=== PATIENT | female | born 1965 | race Caucasian/White ===

== ENCOUNTER 2021-06-27 13:11 | Emergency (ER) | payer OTHER, SELFPAY ==
--- NOTE | ~2021-06-27 | XR_ITS ---
EXAMINATION: XR CHEST CLINICAL INFORMATION: Cough x2 weeks COMPARISON: None TECHNIQUE: 2 views of the chest were obtained. FINDINGS: No focal consolidation. No pneumothorax. Trachea is midline. Cardiomediastinal silhouette is not enlarged. No large pleural effusions. Degenerative changes of the thoracolumbar spine. Partially visualized lower cervical spinal hardware. Soft tissues are unremarkable. XR/XR chest 2V IMPRESSION: No acute cardiopulmonary process.
[2021-06-27 13:17] VITALS: BP 191/83; PULSE 86; RESP 16; TEMP 36.2; O2SAT 96; BMI 23.8
--- NOTE | 2021-06-27 14:43 | ED.URI ---
HPI - URI/Sore Throat General Chief Complaint: Upper Respiratory Symptoms Stated Complaint: cough Time Seen by Provider: 06/27/21 14:05 Source: patient Mode of arrival: ambulatory Limitations: no limitations History of Present Illness HPI Narrative: This is a 56-year-old female that presents to 14 days of productive cough, facial pressure, and malaise. She states that her cough has been productive and constant in nature, in the sputum is perez/green in nature. She states she frequently gets sinus infections. She also states that for the past 14 days she has also been experiencing throat discomfort which she states is most likely from her cough. She also describes a vague discomfort to her left ear that also started 14 days ago. She reports post-tussive emesis after coughing fits . She denies any sick contacts, fevers, chills, shortness of breath, chest pain, nausea, vomiting, diarrhea and abdominal pain. She is not concerned about COVID-19, she states that she has stayed within her home and has not left. She also adds that she smoked for 40 years but has quit and is currently not smoking. MD elicited complaint: cough (Productive), nasal congestion (And facial pressure) and sinus pain Onset (ago): day(s) (Fourteen days) Consistency: constant Severity: moderate Description of mucous: green (/perez) Able to tolerate fluids by mouth: Yes Related Data Previous Rx's Medication 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 Recorded albuterol sulfate 90 mcg/actuation 1 inh INHALATION QID PRN #8.5 g 06/27/21 aerosol inhaler amoxicillin 875 mg-potassium 1 tab PO BID 10 Days #20 tab 06/27/21 clavulanate 125 mg tablet (Augmentin) benzonatate 100 mg capsule 100 mg PO BID PRN #20 cap 06/27/21 (Tessalon Perles) Allergies Allergy/AdvReac Type Severity Reaction Status Date / Time Unable to Assess Allergy Verified 06/27/21 13:19 Review of Systems Review of Systems: Constitutional : No Weight loss, No Fever, No Chills, No Night Sweats, No Fatigue, No Malaise ENT/Mouth : No Hearing loss, + Ear Pain, + Nasal Congestion, + Sinus Pain, No Hoarseness, No sore throat, No Rhinorrhea, No Swallowing Difficulty Eyes: No Eye Pain, No Swelling, No Redness, No Foreign Body, No Discharge, No Vision Changes Cardiovascular : No Chest Pain, No SOB, No Dyspnea on Exertion, No Orthopnea, No Edema, No Palpitations Respiratory : + Cough, + Sputum, No Wheezing, No Smoke Exposure, no Dyspnea Gastrointestinal : No Nausea, No Vomiting, No Diarrhea, No Constipation, No abdominal Pain, No Hematochezia, No Melena Genitourinary : no irregular bleeding, No Dysuria, No Urinary Frequency, No Hematuria, No Urinary Incontinence, No Urgency, No Flank Pain, No Urinary Flow Changes, No Hesitancy Musculoskeletal : No joint pain, No Myalgias, No Joint Swelling Skin : No Skin Lesions, No rash Neuro : No Weakness, No Numbness, No Paresthesias, No Loss of Consciousness, No Dizziness, No Headache Psych : No Anxiety/Panic, No Depression, No SI/HI/AH/VH, No Social Issues, Heme/Lymph: No Bruising, No Bleeding,No Lymphadenopathy Endocrine : No Polyuria, No Polydipsia, No Temperature Intolerance Yes all other systems are reviewed and are negative [facility] Past Medical History Attestation statement: The following information was validated with the patient. Source: old records reviewed Medical History (Updated 06/27/21 @ 15:02 by GARFIELD Coreas) COPD (chronic obstructive pulmonary disease) Diabetes Social History Social History Advance Directives: Yes Advance Directives Information Provided: Yes Advance Directives on File: No Physical Exam Vital Signs: Vital Signs: Last Vital Signs Temp 97.2 F 06/27/21 13:17 Pulse 86 06/27/21 13:17 Resp 16 06/27/21 13:17 BP 191/83 H 06/27/21 13:17 Pulse Ox 96 06/27/21 13:17 Body Mass Index 23.8 vital signs have been reviewed as normal and appeared to be correct. Blood pressure elevated, patient has no history of hypertension and that she knows of. Heart rate normal. Respiration rate normal. Temperature normal. Oxygen saturation normal. Appearance: Alert. Oriented X3. No acute distress. Patient is periodically coughing during the interview. Head: Normal external exam. Normocephalic. + discomfort to palpation on maxillary sinus, + pressure with downward bending test Eyes: PERRLA. EOMI. Conjunctiva and sclera normal. Eyelids normal. ENT: Pharynx normal. Uvula midline. Moist mucous membranes. Bilateral tympanic membranes with a strong cone of light, all landmarks visible, free of erythema and effusions. Neck: Normal inspection. Neck supple. FROM. + submandibular adenopathy. No meningeal signs. CVS: Normal heart rate and rhythm. Heart sound normal. No murmurs noted. Pulses normal throughout. Respiratory: No respiratory distress. Painless inspiration. Breath sounds normal. No wheezes/rales/rhonchi noted. Chest nontender. No accessory muscle usage noted or decreased air movement noted. Abdomen: Soft and nontender. Nondistended. No guarding. No rigidity. Bowel sounds normal in all 4 quadrants. No distention noted. No organomegaly noted. No visible injury noted. No rebound tenderness. Back: No CVA tenderness. Full range of motion noted. Skin: Skin warm and dry. Normal skin color. Normal skin turgor. No rashes/lesions/lacerations noted. Extremities: Extremities exhibit normal range of motion. Extremities nontender. Neuro: Oriented X 3. No motor deficit. No sensory deficit. Reflexes normal. Normal steady gait. Course Course Course Narrative: This is a 55-year-old female that presents to the emergency department from home with 14 days of productive cough. She states that her sputum is green/perez and has been consistently this color since day 1. She states she has also been experiencing post-tussive emesis at times, when she has coughing fits. She also vaguely reports throat discomfort, as well as left ear pain which started around the same time. She denies fevers, chills, shortness of breath, chest pain, recent sick contacts. My reviewing vitals it was noted that the patient is hypertensive at 191/83. Per patient history she is not aware of a diagnosis of hypertension, and states she does not take anything for her blood pressure. She is asymptomatic at this time, however she has been advised to follow-up with her primary care provider within the next week to look into her high blood pressure. She is aware of the blood pressure, and will follow up with her PCP Physical exam is significant for pressure to the maxillary sinuses, and facial pressure when bending forward. Consistent with sinusitis. No abnormal findings upon otoscopic optic exam. No adventitious lung sounds noted. A chest x-ray has been ordered at this time as well as a strep test. Her chest x-ray shows no acute cardiopulmonary processes. The plan at this time is to discharge the patient home with antibiotics to treat a sinus infection. She has been educated on the diagnosis, and plan. She has no further questions. She has also been instructed to follow-up with her PCP, and return to the emergency department any new or worsening symptoms. MDM - URI/Sore Throat Imaging Data Chest x-ray: Attestation: I personally reviewed and interpreted this imaging study as follows: Radiologist's impression: FINDINGS: No focal consolidation. No pneumothorax. Trachea is midline. Cardiomediastinal silhouette is not enlarged. No large pleural effusions. Degenerative changes of the thoracolumbar spine. Partially visualized lower cervical spinal hardware. Soft tissues are unremarkable. XR/XR chest 2V IMPRESSION: No acute cardiopulmonary process. Discharge Plan Discharge Clinical Impression: Sinusitis, Upper respiratory infection Patient Disposition: Home, Self-Care 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: Sinusitis (ED) Additional 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: Take all medications as prescribed Follow-up with your primary care provider Drink plenty of fluids Return to the emergency department if new or worsening symptoms, or if you developed shortness of breath, chest pain, fevers or chills. Today you were found to have an elevated blood pressure, although you do not have a history of hypertension or high blood pressure it is important for you to follow-up with your primary care provider to look into this diagnosis. Prescriptions: New amoxicillin-pot clavulanate [Augmentin] 875-125 mg tablet 1 tab PO BID 10 Days Qty: 20 RF: 0 benzonatate [Tessalon Perles] 100 mg capsule 100 mg PO BID PRN (Reason: cough) Qty: 20 RF: 0 albuterol sulfate 90 mcg/actuation HFA aerosol inhaler 1 inh inhalation QID PRN (Reason: shortness of breath or wheezing) Qty: 8.5 RF: 0 Referrals: Edith Wong MD [Primary Care Provider] - 2 days
[2021-06-27 15:03] LABS: Influenza A PCR NEGATIVE (Negative); Influenza B PCR NEGATIVE (Negative); Resp Syncy Virus RNA Qual PCR NEGATIVE (Negative); SARS COV2 PCR INHOUSE NEGATIVE (Negative)
[2021-06-27 15:14] VITALS: BP 157/66; PULSE 78; RESP 18; TEMP 36.8; O2SAT 98
== END 2021-06-27 16:10 | disposition home or self-care (01) ==
PROVIDERS: Physician Assistant Medical; Emergency Provider Emergency Medicine; PCP Internal Medicine
DX: J06.9 Acute upper respiratory infection, unspecified (principal); J44.9 Chronic obstructive pulmonary disease, unspecified; J20.9 Acute bronchitis, unspecified; R05 Cough; R06.02 Shortness of breath; Z20.822 Contact with and (suspected) exposure to COVID-19; Z79.899 Other long term (current) drug therapy
CPT/HCPCS: 0241U; 36415; 71046; 99283; 99284

== ENCOUNTER 2022-04-21 08:36 | Outpatient (REF) | payer OTHER, SELFPAY ==
[2022-04-21 11:16] LABS: MANUAL DIFF FLAG NO
[2022-04-21 11:38] LABS: Basophils Absolute Auto 0.1 X10*3/uL (0.0-0.2); Basophils Percent Auto 0.8 % (0-2); Eosinophils Absolute Auto 0.3 X10*3/uL (0.0-0.4); Eosinophils Percent Auto 3.5 % (0-4); Hematocrit 36.8 % (37.0-47.0); Hemoglobin 11.7 g/dl (12.0-16.0); Imm Gran Abs Auto 0.03 X10*3/uL (0.00-0.03); Imm Gran Pct Auto 0.4 % (0.0-0.4); Lymphocytes Absolute Auto 3.9 X10*3/uL (1.2-4.9); Lymphocytes Percent Auto 46.4 % (20-40); Mean Corpuscular HGB Conc 31.8 g/dl (31.0-35.0); Mean Corpuscular Hemoglobin 28.3 pg (27.0-33.0); Mean Corpuscular Volume 88.9 fL (80.0-98.0); Mean Platelet Volume 11.8 fL (9.4-12.3); Monocytes Absolute Auto 0.5 X10*3/uL (0.1-1.2); Monocytes Percent Auto 6.1 % (2-11); Neutrophils Absolute Auto 3.6 x10*3/uL (2.0-8.3); Neutrophils Percent Auto 42.8 % (45-73); Platelet Count 299 X10*3/uL (160-400); Red Blood Count 4.14 X10*6/uL (4.20-5.50); Red Cell Distribution Width 14.1 % (11.0-16.0); White Blood Count 8.4 X10*3/uL (4.8-10.8)
[2022-04-21 12:07] LABS: TSH reflex Free T4 4.84 uIU/mL (0.32-4.0)
[2022-04-21 12:08] LABS: Alanine Aminotransferase 29 U/L (0-31); Albumin Level 3.9 g/dL (3.5-5.0); Alkaline Phosphatase 217 U/L (39-117); Anion Gap 14 (12-20); Aspartate Amino Transferase 32 U/L (5-31); Bilirubin Total 0.3 mg/dL (0.0-1.0); Blood Urea Nitrogen 17 mg/dL (9-16); Calcium 9.3 mg/dL (8.4-10.2); Carbon Dioxide 25 mmol/L (22-29); Chloride 105 mmol/L (96-108); Cholesterol 212 mg/dL; Estimated Glomerular Filt Rate > 60; Glucose Fasting 114 mg/dL (60-99); HDL Cholesterol 56 mg/dL; LDL Cholesterol Calculated 119 mg/dl; Potassium 5.2 mmol/L (3.3-5.1); Sodium 139 mmol/L (135-145); Total Protein 7.5 g/dL (6.5-8.0); Triglycerides 187 mg/dL
[2022-04-21 12:34] LABS: Creatinine Urine 112.95 mg/dL; Microalbum/Creatinine Ratio Ur 223.9 ug/mg cr
[2022-04-21 12:40] LABS: Free T4 (Free Thyroxine) 1.03 ng/dL (0.71-1.85)
[2022-04-26 16:12] LABS: Vitamin D 25-OH, D2 <4 ng/mL; Vitamin D 25-OH, D3 63 ng/mL; Vitamin D 25-OH, Total 63 ng/mL (30-100)
== END 2022-04-21 08:37 | disposition home or self-care (01) ==
LOC: HO.HMGCLDS 08:36
PROVIDERS: Visit Provider Nurse Practitioner Family
DX: E11.9 Type 2 diabetes mellitus without complications (principal); E78.00 Pure hypercholesterolemia, unspecified; M25.50 Pain in unspecified joint; I10 Essential (primary) hypertension; Z76.89 Persons encountering health services in other specified circumstances
CPT/HCPCS: 36415; 80053; 80061; 82043; 82306; 84439; 84443; 85025

== ENCOUNTER → 2022-06-03 10:16 | Outpatient (BNVA) | payer OTHER, SELFPAY | PROVIDERS: PCP Internal Medicine; Visit Provider Orthopaedic Surgery | DX: M65.342 Trigger finger, left ring finger (principal) | CPT/HCPCS: 20550; 99202; J1100 ==

== ENCOUNTER → 2022-08-25 10:42 | Outpatient (BNVA) | payer OTHER, SELFPAY | PROVIDERS: PCP Nurse Practitioner Family; Visit Provider Orthopaedic Surgery | DX: M65.342 Trigger finger, left ring finger (principal) | CPT/HCPCS: 99212 ==

== ENCOUNTER → 2022-09-01 12:24 | Outpatient (BNVA) | payer OTHER, SELFPAY | PROVIDERS: PCP Nurse Practitioner Family; Visit Provider Internal Medicine Endocrinology, Diabetes & Metabolism | DX: E11.9 Type 2 diabetes mellitus without complications (principal); Z79.4 Long term (current) use of insulin | CPT/HCPCS: 82947; 99202 ==

== ENCOUNTER 2022-11-19 09:29 | Day surgery (SDC) | payer OTHER, SELFPAY ==
[2022-11-19 09:54] VITALS: BMI 30.3
[2022-11-19 11:19] VITALS: BP 140/59; PULSE 77; RESP 18; TEMP 36.7
--- NOTE | 2022-11-19 11:33 | MHC.SHP ---
Pre-Procedural Eval Section A Date of Service: 11/19/22 The patient is an INPATIENT: No Changes since office visit: No Cold of Flu in the past 2 weeks, No New Medical Problems, No Changes in Medication and No Patient answered all questions The History & Physical has been completed within 30 days and I have reviewed it.: Yes Section B Chief Complaint: Trigger finger, left ring finger Allergies: Allergies Allergy/AdvReac Type Severity Reaction Status Date / Time No Known Allergies Allergy Verified 09/01/22 12:34 Plan I have reviewed the history and physical and performed a pertinent physical examination on my patient. No changes have occurred unless specified. Time Spent With Patient Time: Total time managing care of this patient today ____ minutes.
--- NOTE | 2022-11-19 11:34 | W.PM.OPN ---
Operative Note Operative Note Date of Service: 11/19/22 Narrative: Operative Note Preop diagnosis: 1. Left ring finger Trigger finger Postop diagnosis: 1. Left ring finger Trigger finger Procedure: 1. Left ring finger A1 jesica release Surgeon: Jenny Banegas MD Anesthesia: local block using 1% lidocaine with epinephrine Findings: No locking or catching after A1 jesica release EBL: Less than 5 mL Tourniquet time: None Specimens: None Complications: None Disposition: Brought to recovery room in stable condition Plan: Follow-up for 10-14 days for wound check and suture removal Indications: The patient is 57 years old, with a left ring finger trigger finger that has been unresponsive to nonoperative management. The risks and benefits of operative treatment including but not limited to risk of damage to blood vessels, nerves, tendons, infection, persistent pain, persistent symptoms, recurrence or possible need for additional surgery were discussed with the patient and the patient wishes to proceed with surgery. Procedure: Once consent was obtained a local block was performed in the preop area using a combination of 1% lidocaine with epinephrine. The patient was then brought back to the operating suite and placed on the operative table in supine position. The left upper extremity was prepped and draped in a standard surgical fashion. Once assured that we had a good block, a 1.5 cm oblique incision was made centered over the A1 jesica of the left ring finger . The incision was made through the skin to the subcutaneous tissues using a #15 blade. Careful dissection was made down to the level of the A1 jesica using tenotomy scissors, with care being taken to protect the nearby neurovascular structures. A longitudinal incision was made in the A1 jesica 1st using a #15 blade, then using tenotomy scissors under direct visualization. The A1 jesica was noted to be thickened. Following our A1 jesica release, we no longer saw any locking or catching of the digit with flexion and extension. Once satisfied with our A1 jesica release the wound was copiously irrigated with normal saline and hemostasis was obtained with a brief period of local pressure. The skin edges were reapproximated with some 5.0 nylon suture material and a sterile dressing was applied. The patient appears to have tolerated the procedure well and with no complications. All digits were well vascularized at the conclusion of the case.
[2022-11-19 11:46] VITALS: BP 142/58; PULSE 76; RESP 18; O2SAT 95
== END 2022-11-19 11:48 | disposition home or self-care (01) ==
PROVIDERS: PCP Nurse Practitioner Family; Visit Provider Orthopaedic Surgery
PROC: (CPT 26055; principal; 2022-11-19 11:50)
DX: M65.342 Trigger finger, left ring finger (principal); E11.9 Type 2 diabetes mellitus without complications; J44.9 Chronic obstructive pulmonary disease, unspecified; F17.210 Nicotine dependence, cigarettes, uncomplicated
CPT/HCPCS: 26055; J0171

== ENCOUNTER 2022-11-24 14:15 | Outpatient (REF) | payer OTHER, SELFPAY ==
[2022-11-24 18:18] LABS: Alanine Aminotransferase 28 U/L (0-31); Albumin Level 4.1 g/dL (3.5-5.0); Alkaline Phosphatase 233 U/L (39-117); Anion Gap 17 (12-20); Aspartate Amino Transferase 24 U/L (5-31); Bilirubin Total 0.3 mg/dL (0.0-1.0); Blood Urea Nitrogen 18 mg/dL (9-16); Calcium 9.3 mg/dL (8.4-10.2); Carbon Dioxide 26 mmol/L (22-29); Chloride 101 mmol/L (96-108); Cholesterol 137 mg/dL; Estimated Glomerular Filt Rate 42; Glucose Random 177 mg/dL (60-115); HDL Cholesterol 52 mg/dL; LDL Cholesterol Calculated 44 mg/dl; Potassium 4.5 mmol/L (3.3-5.1); Sodium 139 mmol/L (135-145); Total Protein 7.2 g/dL (6.5-8.0); Triglycerides 208 mg/dL
== END 2022-11-24 14:16 | disposition home or self-care (01) ==
LOC: HO.LAB 14:15
PROVIDERS: Absent Provider Nurse Practitioner Family; PCP Nurse Practitioner Family; Visit Provider Internal Medicine Endocrinology, Diabetes & Metabolism
DX: E11.9 Type 2 diabetes mellitus without complications (principal); E78.5 Hyperlipidemia, unspecified
CPT/HCPCS: 36415; 80053; 80061; 82947; 83036; 99212

== ENCOUNTER → 2022-12-02 15:04 | Outpatient (BNVA) | payer OTHER, SELFPAY | PROVIDERS: PCP Nurse Practitioner Family; Visit Provider Orthopaedic Surgery | DX: Z13.89 Encounter for screening for other disorder (principal) | CPT/HCPCS: 99212 ==

== ENCOUNTER → 2023-01-05 13:24 | Outpatient (BNVA) | payer OTHER, SELFPAY | PROVIDERS: PCP Nurse Practitioner Family; Visit Provider Dietitian, Registered | DX: E11.9 Type 2 diabetes mellitus without complications (principal) | CPT/HCPCS: 97802 ==

== ENCOUNTER → 2023-02-09 11:03 | Outpatient (BNVA) | payer OTHER, SELFPAY | PROVIDERS: PCP Nurse Practitioner Family; Visit Provider Dietitian, Registered | DX: E11.9 Type 2 diabetes mellitus without complications (principal); Z79.4 Long term (current) use of insulin | CPT/HCPCS: 97803 ==

== ENCOUNTER → 2023-03-04 11:34 | Outpatient (BNVA) | payer OTHER, SELFPAY | PROVIDERS: PCP Nurse Practitioner Family; Visit Provider Physician Assistant Surgical ==

== ENCOUNTER → 2023-03-09 14:27 | Outpatient (BNVA) | payer OTHER, SELFPAY | PROVIDERS: PCP Nurse Practitioner Family; Visit Provider Surgery Vascular Surgery | DX: I73.9 Peripheral vascular disease, unspecified (principal) | CPT/HCPCS: 99202 ==

== ENCOUNTER 2023-04-07 11:35 | Outpatient (AMB) | payer OTHER, SELFPAY ==
[2023-04-07 12:31] VITALS: BP 120/60; PULSE 93; O2SAT 99; BMI 30.4
--- NOTE | 2023-04-07 12:31 | A.OFFPC_ITS ---
Vital Signs 04/07/23 12:31 Height 5 ft 2 in Weight 166 lb BMI 30.4 BP 120/60 Blood Pressure Location Rt brachial Position Sitting Pulse 93 Pulse Source Pulse Oximeter Pulse Oximetry (%) 99 Oxygen Delivery Method Room Air Intake Visit Reasons: transfer from [facility] Intake Note: Pt is here today transfer from [facility]: Pt is here to request rx's for DM Allergies No Known Allergies Allergy (Verified 01/10/24 11:19) Medication List - Last Reconciled 04/07/23 by Anel Barrera MD albuterol sulfate 90 mcg/actuation (Ventolin HFA) 2 puffs inhalation Q4-6H PRN aspirin (Adult Low Dose Aspirin) 81 mg PO DAILY atorvastatin 80 mg PO DAILY blood sugar diagnostic (FreeStyle Lite Strips) As directed- checks 4 X/day blood-glucose meter (FreeStyle Lite Meter kit) As directed checks 4 X/dasy buprenorphine HCl 2 mg sublingual DAILY bupropion HCl 300 mg PO QAM buspirone 10 mg PO BID clopidogrel 75 mg PO DAILY diclofenac sodium 1% (Arthritis Pain (diclofenac)) 2 grams topical QID PRN dulaglutide (Trulicity) 0.75 mg (0.5 mL) subcut QWEEK flash glucose scanning reader (FreeStyle Bhavesh 2 [place]) As directed flash glucose sensor (FreeStyle Bhavesh 14 Day Sensor kit) As directed flash glucose sensor (FreeStyle Bhavesh 2 Sensor kit) As directed change every 14 days hydroxyzine HCl 10 mg PO BID PRN insulin glargine (Lantus Solostar U-100 Insulin) 30 units subcut BEDTIME insulin lispro (Humalog KwikPen (U-100) Insulin) 5 units subcut TID lancets (FreeStyle Lancets) As directed lisinopril 5 mg PO DAILY metformin 1,000 mg PO BID nicotine 1 patch transdermal Q24H omeprazole 40 mg PO DAILY pen needle, diabetic (BD Ultra-Fine Mini Pen Needle) As directed 4 times a day quetiapine 25 mg PO BEDTIME ropinirole 0.25 mg PO BID Tobacco use date assessed: 04/07/23 Dental Screening Dental Screen Date: 04/07/23 Did you have a dental visit in the last 12 months?: Yes Did you have a dental problem in the last 6 months where you did not have access to dental care?: No Was dental information given to patient?: Patient has dentist HPI transfer from [facility] HPI Details 58-year-old lady with a complex past med ical history GERD, hypertension, hyperlipidemia, bipolar disorder, history of polysubstance use disorder, type 2 diabetes mellitus, Karyn's disease. She has PAD, with ischemic changes in right foot s/p right lower extremity balloon angioplasty, had occlusion 0f right anterior tibial artery, with attempted percutaneous pharmacomechanical thrombectomy on 10/21/[address] 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 Lowe on 10/25/2022, discharged 10/29 to rehab. She was re-admitted on 11/09/2022 after hitting her stump on her wheelchair, causing trauma to the right BKA stump with increased pain, and was discharged 11/11/2022. She returned on 12/07/2022 for nonhealing right BKA with ischemic skin and fat necrosis , and subsequently underwent right AKA 12/07/[address] Verdugo. Pain was controlled with as needed oxycodone, and as needed Valium, and was started on gabapentin 600 mg 3 times daily. She was then transferred to [facility] for PT/ OT. She is here today for follow-up on her diabetes mellitus, needs refill on her Lantus , takes 30 units at bedtime, is on Humalog 5 units subcutaneously Trulicity 0.75 mg weekly 3 times a day before meals and is on Trulicity 0.75 mg weekly. [facility] Medical History (Updated 01/29/24 @ 03:39 by Anel Barrera MD) Anemia [place]'s disease Essential hypertension Cigarette smoker motivated to quit Uncontrolled type 2 diabetes mellitus with hyperglycemia Diabetes mellitus with nephropathy Annual visit for general adult medical examination with abnormal findings section wound complications Encounter to establish care Type II diabetes mellitus Diabetes COPD (chronic obstructive pulmonary disease) Surgical History S/P AKA (above knee amputation) unilateral H/O neck surgery History of mandibular surgery H/O foot surgery H/O hernia repair H/O section H/O angioplasty History of hysterectomy History of colonoscopy History of laparoscopic adjustable gastric banding S/P bilateral breast reduction S/P carpal tunnel release Status post cataract extraction Family History Sister Breast cancer Mother Breast cancer Substance use disorder Mental health disorder Brother Substance use disorder Brother Substance use disorder Sister No problems noted. 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 How often do you have a drink containing alcohol?: Never Total Score: 0 STAS-7 AMB Questionnaire STAS-7 Date STAS - 7 assessed: 12/29/22 Source: Developed by Drs. Jun Ceja, Anisa Goode, Sergey Vargas and colleagues, with an educational dakota from [employer]. Review of Systems Const Denies body aches, Denies chills, Denies fever(s) and Denies headache(s) Eyes Denies change in vision ENT Reports Normal hearing present, Denies dizziness, Denies headache(s) and Denies nasal discharge Card Denies chest pain, Denies edema, Denies lightheadedness and Denies dyspnea Resp Denies chest congestion, Denies cough and Denies dyspnea GI Denies abdominal pain, Denies change in bowel habits, Denies change in stool character and Denies heartburn Reports no additional complaints Musc Denies myalgias, Reports arthralgias, Denies joint swelling, Reports stiffness and Reports tingling Skin/Breast Denies lesions and Denies rash Neuro Reports Normal hearing present, Denies dizziness, Denies headache(s) and Reports tingling Psych Reports no additional complaints Endo Reports no additional complaints Fantasma/Lymph Reports no additional complaints Physical exam (Primary Care) Vital Signs: Last Vital Signs Pulse 93 04/07/23 12:31 BP 120/60 04/07/23 12:31 Pulse Ox 99 04/07/23 12:31 Oxygen Delivery Method Room Air 04/07/23 12:31 BMI result Body Mass Index 30.4 Tobacco/Smoking Status: Tobacco use Status Tobacco use date assessed 04/07/23 04/07/23 12:40 Patient Tobacco Use Status Current everyday Tobacco 04/07/23 12:40 Tobacco use type Cigarette 04/07/23 12:40 e-Cigarette/Vaping Use Never Used 04/07/23 12:40 Thrive Assessment: Date of Thrive Assessment Date Thrive assessed 12/29/22 04/07/23 12:40 Const General: cooperative and no acute distress Orientation/consciousness: patient oriented x3 HENMT Head: Yes normocephalic and Yes atraumatic Mouth: oropharynx normal and moist mucous membranes Throat: Yes posterior oropharynx normal Neck Neck: Yes normal visual inspection, Yes full ROM and Yes no lymphadenopathy Resp Effort & Inspection: normal respiratory effort and able to speak in complete sentences Auscultation: clear to auscultation bilaterally, no rhonchi and no wheezes Cardio Rate: regular rate Rhythm: regular rhythm Heart sounds: S1 normal heart sound present and S2 normal heart sound present GI Palpation (GI): Soft to palpation, nontender and no guarding Auscultation: normal bowel sounds Neuro General: patient oriented x3 Cranial nerves: Yes Normal hearing present Gait exam (Neuro): Normal gait present Extrem General: Yes full ROM and No edema Results Reviewed Results Reviewed: Laboratory Tests 03/05/23 08:40 Hgb A1c (Clinic) 7.8 H Name: Shama Reyes Age/Sex: 57/F : 1965 Unit#: [id number] Attend Dr: Jun Goss MD Re11/24/22 Status: DEP REF Location: .LAB Disch: SPEC : [id number] INESSA: 11/24/22-UNK STATUS: COMP REQ : [id number] RECD: 11/24/22-[address]: Jun Goss MD COMP: 11/24/22 ENTERED: 11/24/22-[address]: Yumiko Glover ORDERED: CMP, Lipid Panel Test Result Flag Reference Sodium 139 135-145 mmol/L Potassium 4.5 3.3-5.1 mmol/L CL 101 96-108 mmol/L CO2 26 22-29 mmol/L Gap 17 12-20 BUN 18 H 9-16 mg/dL Creat 1.31 0.5-1.4 mg/dL EGFR 42 NOTE: For -[place] individuals, multiply the result by 1.210. Chronic Kidney Disease: Estimated GFR < 60 mL/min/1.73m2 Severe Kidney Disease: Estimated GFR < 15 mL/min/1.73m2 Glucose, Random 177 H 60-115 mg/dL CA 9.3 8.4-10.2 mg/dL Total Bili 0.3 0.0-1.0 mg/dL AST (GOT) 24 5-31 U/L ALT (GPT) 28 0-31 U/L Protein, Total 7.2 6.5-8.0 g/dL Alb 4.1 3.5-5.0 g/dL Triglyceride 208 mg/dL Desirable Triglyceride: less than 150 mg/dL Borderline High Triglyceride 150-199 mg/dL High Triglyceride: 200-499 mg/dL Very High Triglyceride: greater than or equal to 5OO mg/dL Chol 137 mg/dL Desirable Cholesterol: less than 200 mg/dL Borderline High Cholesterol: 200-239 mg/dL High Cholesterol: greater than 239 mg/dL LDL Calculated 44 mg/dl Desirable LDL: less than 100 mg/dL Near Optimal/Above Optimal LDL: 110-129 mg/dL Borderline High LDL: 130-159 mg/dL High LDL: 160-189 mg/dL Very High LDL: greater than or equal to 190 mg/dL HDL 52 mg/dL Desirable HDL: greater than 40 mg/dL Note: This HDL assay may give artificially low results in patients with liver disease. Alk Phos 233 H 39-117 U/L Assessment and Plan Assessment & Plan (1) Diabetes mellitus with nephropathy: Comment: sees Dr Lsahell hancock, yearly for diabetes retinopathy exam Code(s): E11.21 - Type 2 diabetes mellitus with diabetic nephropathy Plan: Will continue on Lantus, refill sent, it in addition to Humalog 3 times a day with meals and Trulicity. 0.75 mg Q weekly. Reviewed recent labs, consult reports and medical records from previous providers. Reinforced importance of following a diabetic diet and staying active . Advised to continue to check fasting blood sugar at home, maintain log and bring to next appointment for revi ew. Reinforced diabetic diet and regular exercise with patient. Counseled regarding importance of yearly diabetes retinopathy screening. Patient advised to inspect feet daily, for any signs of injury, callus or infection. Compliance with diet and regular exercise again stressed, smoke cessation advised,. Blood pressure goal is less than 130/80, goal LDL is less than 100 and goal hemoglobin A1c is less than 7% Coding Level of Care Code Est Pt Level 4 (41329) Diagnoses Diabetes mellitus with nephropathy E11.21
== END 2023-04-07 13:49 | disposition home or self-care (01) ==
PROVIDERS: PCP Nurse Practitioner Family; Visit Provider Internal Medicine
DX: E11.21 Type 2 diabetes mellitus with diabetic nephropathy (principal)
CPT/HCPCS: 99499

== ENCOUNTER 2023-04-19 10:39 | Outpatient (REF) | payer OTHER, SELFPAY ==
--- NOTE | ~2023-04-19 | MM_ITS ---
EXAMINATION: MM SCREENING DIGITAL BREAST TOMOSYNTHESIS, BILATERAL CLINICAL INFORMATION: Screening. Asymptomatic. . The lifetime risk of breast cancer based on the Tyrer-Cuzick Model is 16%. COMPARISON: Mammography: This study is compared with prior exams dating back to 2019. TECHNIQUE: Digital breast tomosynthesis is performed in both the craniocaudal and mediolateral oblique views along with computer-aided detection (CAD). Synthesized 2D images are generated from the tomosynthesis. FINDINGS: There are scattered areas of fibroglandular density (ACR BI-RADS breast composition Category b). There are no significant masses, abnormal calcifications, or other abnormalities. MM/MM tomosynthesis screening BI IMPRESSION: No mammographic evidence of malignancy. ASSESSMENT: BI-RADS BI-RADS 1 - Negative RECOMMENDATION: Routine annual mammography screening. 1 year F/U This examination should not preclude the clinical evaluation of a suspicious palpable abnormality. This patient's information was entered into a reminder system with a target due date for their next mammogram.
== END 2023-04-19 10:40 | disposition home or self-care (01) ==
LOC: HO.MAMMO 10:39
PROVIDERS: Visit Provider Internal Medicine
DX: Z12.31 Encounter for screening mammogram for malignant neoplasm of breast (principal)
CPT/HCPCS: 77063; 77067

== ENCOUNTER → 2023-04-19 11:15 | Outpatient (BNV) | payer OTHER, SELFPAY | PROVIDERS: Visit Provider Radiology Diagnostic Radiology | DX: Z12.31 Encounter for screening mammogram for malignant neoplasm of breast (principal) | CPT/HCPCS: 77063; 77067 ==

== ENCOUNTER 2023-05-04 13:22 | Outpatient (AMB) | payer OTHER, SELFPAY ==
--- NOTE | 2023-05-04 14:14 | A.OFFPC_ITS ---
Vital Signs 05/04/23 14:21 Height 5 ft 2 in Weight 164 lb BMI 30.0 BP 116/56 L Blood Pressure Location Rt brachial Position Sitting Pulse 86 Pulse Source Pulse Oximeter Pulse Oximetry (%) 98 Oxygen Delivery Method Room Air Intake Visit Reasons: PE Intake Note: Pt is here today for her PE Allergies No Known Allergies Allergy (Verified 06/28/24 09:01) Medication List - Last Reconciled 05/04/23 by Anel Barrera MD albuterol sulfate 90 mcg/actuation (Ventolin HFA) 2 puffs inhalation Q4-6H PRN aspirin (Adult Low Dose Aspirin) 81 mg PO DAILY atorvastatin 80 mg PO DAILY blood sugar diagnostic (FreeStyle Lite Strips) As directed- checks 4 X/day blood-glucose meter (FreeStyle Lite Meter kit) As directed checks 4 X/dasy buprenorphine HCl 2 mg sublingual DAILY bupropion HCl 300 mg PO QAM buspirone 10 mg PO BID diclofenac sodium 1% (Arthritis Pain (diclofenac)) 2 grams topical QID PRN dulaglutide (Trulicity) 0.75 mg (0.5 mL) subcut QWEEK flash glucose scanning reader (Living Map CompanyStyle Bhavesh 2 Ringling) As directed flash glucose sensor (FreeStyle Bhavesh 14 Day Sensor kit) As directed flash glucose sensor (FreeStyle Bhavesh 2 Sensor kit) As directed change every 14 days hydroxyzine HCl 10 mg PO BID PRN insulin glargine (Lantus Solostar U-100 Insulin) 30 units subcut BEDTIME insulin lispro (Humalog KwikPen (U-100) Insulin) 5 units subcut TID lancets (FreeStyle Lancets) As directed lisinopril 5 mg PO DAILY metformin 1,000 mg PO BID nicotine 1 patch transdermal Q24H omeprazole 40 mg PO DAILY pen needle, diabetic (BD Ultra-Fine Mini Pen Needle) As directed 4 times a day quetiapine 25 mg PO BEDTIME ropinirole 0.25 mg PO BID Tobacco use date assessed: 05/04/23 Dental Screening Dental Screen Date: 05/04/23 Did you have a dental visit in the last 12 months?: Yes Did you have a dental problem in the last 6 months where you did not have access to dental care?: No Was dental information given to patient?: Patient has dentist HPI PE HPI Details 58-year-old female, with diabetes mellit us with proteinuria, hypertension, history of substance abuse currently on buprenorphine, has bipolar disorder, peripheral arterial disease, COPD, GERD, here today for physical exam. She had a screening colonoscopy done at 07/02/[address] Ena Cui, to be repeated in 2025, UTD with her screening mammogram done 04/19/2023 at [facility] with report still pending. Sees OBGYN at [facility], and up-to-date with her Pap, not due until 2023. [facility] Medical History (Updated 07/02/24 @ 16:54 by Anel Barrera MD) Peripheral vascular disease Anemia Essential hypertension Cigarette smoker motivated to quit Uncontrolled type 2 diabetes mellitus with hyperglycemia Diabetes mellitus with nephropathy Annual visit for general adult medical examination with abnormal findings section wound complications Encounter to establish care Type II diabetes mellitus Diabetes COPD (chronic obstructive pulmonary disease) Surgical History (Updated 07/02/24 @ 16:54 by Anel Barrera MD) H/O neck surgery History of mandibular surgery H/O foot surgery H/O hernia repair H/O section H/O angioplasty History of hysterectomy History of colonoscopy History of laparoscopic adjustable gastric banding S/P bilateral breast reduction S/P carpal tunnel release Status post cataract extraction Family History Sister Breast cancer Mother Breast cancer Substance use disorder Mental health disorder Brother Substance use disorder Brother Substance use disorder Sister No problems noted. 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 How often do you have a drink containing alcohol?: Never Total Score: 0 STAS-7 AMB Questionnaire STAS-7 Date STAS - 7 assessed: 12/29/22 Source: Developed by Drs. Jun Ceja, Anisa Goode, Sergey Vargas and colleagues, with an educational dakota from [employer]. Review of Systems Const All systems reviewed & are unremarkable except as noted in HPI and below Reports no additional complaints Eyes Details: Up-to-date with her eye exam ENT Reports Normal hearing present Card Denies chest pain, Denies chest pain at rest, Denies chest pain with activity and Denies pedal edema Resp Denies cough GI Denies abdominal pain Reports no additional complaints Musc Denies abnormal gait, Denies muscle cramps and Denies radiating pain into limb Skin/Breast Denies skin ulcer and Denies wounds Neuro Reports Normal hearing present and Denies abnormal gait Psych Reports no additional complaints Endo Reports no additional complaints Fantasma/Lymph Reports no additional complaints Aller/Immun Reports no additional complaints Physical exam (Primary Care) Vital Signs: Last Vital Signs Pulse 86 05/04/23 14:21 BP 116/56 L 05/04/23 14:21 Pulse Ox 98 05/04/23 14:21 Oxygen Delivery Method Room Air 05/04/23 14:21 BMI result Body Mass Index 30.0 Tobacco/Smoking Status: Tobacco use Status Tobacco use date assessed 05/04/23 05/04/23 14:20 Patient Tobacco Use Status Current everyday Tobacco 05/04/23 14:15 Tobacco use type Cigarette 05/04/23 14:15 e-Cigarette/Vaping Use Never Used 05/04/23 14:15 Thrive Assessment: Date of Thrive Assessment Date Thrive assessed 12/29/22 05/04/23 14:15 Const General: cooperative and no acute distress Orientation/consciousness: patient oriented x3 HENMT Head: Yes normocephalic and Yes atraumatic Mouth: oropharynx normal and moist mucous membranes Throat: Yes posterior oropharynx normal Neck Neck: Yes normal visual inspection, Yes full ROM and Yes no lymphadenopathy Resp Effort & Inspection: normal respiratory effort and able to speak in complete sentences Auscultation: clear to auscultation bilaterally, no rhonchi and no wheezes Cardio Rate: regular rate Rhythm: regular rhythm Heart sounds: S1 normal heart sound present and S2 normal heart sound present GI Palpation (GI): Soft to palpation, nontender and no guarding Auscultation: normal bowel sounds Neuro General: patient oriented x3 Cranial nerves: Yes Normal hearing present Gait exam (Neuro): Normal gait present Extrem General: Yes full ROM and No edema Results Reviewed Results Reviewed: Laboratory Tests 03/05/23 08:40 Hgb A1c (Clinic) 7.8 H Name: Shama Reyes Age/Sex: 59/F : 1965 Unit#: [id number] Attend Dr: Micaela Houston 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 Chronic Kidney Disease: Estimated GFR < 60 mL/min/1.73m2 Severe Kidney Disease: Estimated GFR < 15 mL/min/1.73m2 Glucose, Random 138 H 60-115 mg/dL FBS 138 H 60-99 mg/dL A fasting glucose of 126 mg/dl or greater on more than one occasion is considered diagnostic of diabetes. CA 9.3 8.4-10.2 mg/dL Total Bili 0.3 0.0-1.0 mg/dL AST (GOT) 21 5-31 U/L ALT (GPT) 17 0-31 U/L Protein, Total 6.8 6.5-8.0 g/dL Alb 3.7 3.5-5.0 g/dL Triglyceride 154 H <150 mg/dL Desirable Triglyceride: less than 150 mg/dL Borderline High Triglyceride 150-199 mg/dL High Triglyceride: 200-499 mg/dL Very High Triglyceride: greater than or equal to 5OO mg/dL Cholesterol 116 <200 mg/dL Desirable Cholesterol: less than 200 mg/dL Borderline High Cholesterol: 200-239 mg/dL High Cholesterol: greater than 239 mg/dL LDL Calculated 29 <100 mg/dL Desirable LDL: less than 100 mg/dL Near Optimal/Above Optimal LDL: 110-129 mg/dL Borderline High LDL: 130-159 mg/dL High LDL: 160-189 mg/dL Very High LDL: greater than or equal to 190 mg/dL HDL 57 >40 mg/dL Desirable HDL: greater than 40 mg/dL Note: This HDL assay may give artificially low results in patients with liver disease. Alk Phos 103 39-117 U/L Assessment and Plan Assessment & Plan (1) Annual visit for general adult medical examination with abnormal findings: Code(s): Z00.01 - Encounter for general adult medical examination with abnormal findings Plan: Will check appropriate labs. Recommended dental visit every 6 months and continue with yearly eye exam Take adequate calcium in diet and vitamin-D 3 at 2000 IU per cap once a day, in addition to weight-bearing exercises to help maintain good muscle tone and weight control. Instructed to do self-breast exam, and up-to-date with yearly mammogram, and colonoscopy screening done in 2020. Reminded to get her yearly flu shot and COVID booster (2) Elevated TSH: Code(s): R79.89 - Other specified abnormal findings of blood chemistry Plan: Ordered TSH and free T4 (3) Glaucoma: Comment: sees Dr Lucas in [place] Code(s): H40.9 - Unspecified glaucoma (4) PAD (peripheral artery disease): Comment: Code(s): I73.9 - Peripheral vascular disease, unspecified Plan: Followed at [facility] vascular surgery strongly encouraged to quit smoking (5) Hyperlipidemia: Code(s): E78.5 - Hyperlipidemia, unspecified Plan: Fasting lipid panel ordered (6) Anxiety and depression: Code(s): F41.9 - Anxiety disorder, unspecified; F32.A - Depression, unspecified Plan: Currently followed by psychiatry (7) GERD (gastroesophageal reflux disease): Code(s): K21.9 - Gastro-esophageal reflux disease without esophagitis Plan: On omeprazole (8) Current smoker: Code(s): F17.200 - Nicotine dependence, unspecified, uncomplicated Plan: Patient strongly advised to stop smoking, as smoking damages blood vessels, degenerative of joints and spine, damage to lungs and heart., predisposes to developing certain cancers like lung, breast, bladder, colon. Recommended to try decreasing cigarette use by 1-2 cigarettes a day. Advised to monitor what triggers are for smoking so that this can be discussed on the next office visit. We can discuss different options to quit smoking when ready. (9) History of substance abuse: Code(s): F19.11 - Other psychoactive substance abuse, in remission Plan: Currently on buprenorphine (10) Restless leg syndrome: Code(s): G25.81 - Restless legs syndrome Plan: Will repeat (11) COPD (chronic obstructive pulmonary disease): Code(s): J44.9 - Chronic obstructive pulmonary disease, unspecified Plan: Strongly encouraged to quit smoking (12) Diabetes mellitus with nephropathy: Code(s): E11.21 - Type 2 diabetes mellitus with diabetic nephropathy Orders: Orders TSH reflex Free T4 05/04/23 R79.89 - Other specified abnormal findings of blood chemistry, H40.9 - Unspecified glaucoma, I73.9 - Peripheral vascular disease, unspecified, G62.9 - Polyneuropathy, unspecified, E78.5 - Hyperlipidemia, unspecified, F41.9 - Anxiety disorder, unspecified, F32.A - Depression, unspecified, K21.9 - Gastro-esophageal reflux disease without esophagitis, F17. 200 - Nicotine dependence, unspecified, uncomplicated, F19.11 - Other psychoactive substance abuse, in remission, G25.81 - Restless legs syndrome, J44.9 - Chronic obstructive pulmonary disease, unspecified, Z00.01 - Encounter for general adult medical examination with abnormal findings, E11.21 - Type 2 diabetes mellitus with diabetic nephropathy Lipid Panel 05/04/23 I73.9 - Peripheral vascular disease, unspecified, E78.5 - Hyperlipidemia, unspecified, E11.21 - Type 2 diabetes mellitus with diabetic nephropathy Coding Level of Care Code Est Pt Prev Care 40-64y(26965) Diagnoses Annual visit for general adult medical examination with abnormal findings Z00.01 Elevated TSH R79.89 Glaucoma H40.9 PAD (peripheral artery disease) I73.9 Hyperlipidemia E78.5 Anxiety and depression F41.9; F32.A GERD (gastroesophageal reflux disease) K21.9 Current smoker F17.200 History of substance abuse F19.11 Restless leg syndrome G25.81 COPD (chronic obstructive pulmonary disease) J44.9 Diabetes mellitus with nephropathy E11.21
[2023-05-04 14:21] VITALS: BP 116/56; PULSE 86; O2SAT 98
== END 2023-05-05 09:17 | disposition home or self-care (01) ==
PROVIDERS: PCP Nurse Practitioner Family; Visit Provider Internal Medicine
DX: Z00.01 Encounter for general adult medical examination with abnormal findings (principal); R79.89 Other specified abnormal findings of blood chemistry; H40.9 Unspecified glaucoma; I73.9 Peripheral vascular disease, unspecified; E78.5 Hyperlipidemia, unspecified; F41.9 Anxiety disorder, unspecified; F32.A Depression, unspecified; K21.9 Gastro-esophageal reflux disease without esophagitis; F17.200 Nicotine dependence, unspecified, uncomplicated; F19.11 Other psychoactive substance abuse, in remission; G25.81 Restless legs syndrome; J44.9 Chronic obstructive pulmonary disease, unspecified; E11.21 Type 2 diabetes mellitus with diabetic nephropathy
CPT/HCPCS: 99499

== ENCOUNTER 2023-07-15 09:38 | Outpatient (AMB) | payer OTHER, SELFPAY ==
--- NOTE | 2023-07-15 09:39 | MHC.OFFVIS ---
Intake Vital Signs 07/15/23 09:40 Height 5 ft 2 in Weight 161 lb 9.581 oz BMI 29.6 BP 150/72 H Blood Pressure Location Rt brachial Position Sitting Pulse 88 Pulse Source Pulse Oximeter Intake Visit Reasons: Diabetes-CONFIRMED Intake Note: Patient present today to follow up on Type 2 Diabetes Mellitus. Patient receives DME supplies through: Pharmacy Last Diabetic Eye exam: 05/11/2023 Last Podiatry Visit: 11/27/2022 Random Glucose: 160 mg/dl HgA1C: 7.8% Information Technology Security Analyst Required: No Accompanied by: Self / Same As Patient Allergies No Known Allergies Allergy (Verified 07/15/23 09:46) HPI HPI Comments History of Present Illness Details 58 YO F who is seen in consultation for T2DM at the request of PCP. Initially diagnosed with T2DM in 1132-0347 for gestational DM . Was initially started on treatment with metformin . Current regimen metformin 1000 mg BID Trulcity 1.5 mg Qwkly Lantus 25 units Humalog 5- 8 units TID . Bhavesh download shows she is using the sensor 47% of the time. Average glucose is 170 with variability 35.4%. 57% in target range with 28% hyperglycemia and 12% very hyperglycemic and 3% hypoglycemia. Hypoglycemia is occurring overnight Treats lows with eats peanut butter. does not sugar after to ensure it is rising. Has overnight hypoglycemia Family history of T2DM in grandmother , mother . Has eyes checked yearly, last eye exam05/2023, ? retinopathy. Has neuropathy, Does not sees podiatry. Has nephropathy, Not on ANAHY/ARB. UAC [] as measured on []. Has HLD,Not on statin. Denies CAD. Had diabetes education in distant past . [facility] Medical History (Updated 07/15/23 @ 10:04 by Jun Goss MD) Uncontrolled type 2 diabetes mellitus with hyperglycemia Diabetes mellitus with nephropathy Annual visit for general adult medical examination with abnormal findings section wound complications Encounter to establish care Type II diabetes mellitus Diabetes COPD (chronic obstructive pulmonary disease) Surgical History (Updated 05/04/23 @ 15:13 by Anel Barrera MD) H/O angioplasty History of hysterectomy History of colonoscopy History of laparoscopic adjustable gastric banding S/P bilateral breast reduction S/P carpal tunnel release Status post cataract extraction Family History (Updated 04/07/23 @ 12:34 by Yumiko Morales CMA) Sister Breast cancer Mother Breast cancer Substance use disorder Mental health disorder Brother Substance use disorder Brother Substance use disorder Sister No problems noted. 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 Absence of acromegalic features. Neck exam reveals nl size thyroid about 15 gms. No thyroid nodules palpable. No carotid bruits present. Lungs CTA. Heart S1 S2, Reg R/R. No M/R/ G. Skin exam reveals absence of vitiligo or acanthosis nigricans. Abdominal exam reveals Soft NT/ND with NA BS. No organomegaly present. Neck Other: . Extrem Other: Visual exam of foot performed. No ulcerations or open lesions. No onchomycosis, no callouses.Pulses 2 + distally Sensation decreased to monofilament exam. Vibratory sensation sensed is decreased t with 128 Hz tuning fork. Right 1st toe is somewhat discolored and tender to palpation Results AMB Hemoglobin A1c AMB Hemoglobin A1c 7.8 % Last Edit by Ana Tony on 07/15/23 10:09 Results Reviewed Results Reviewed: 07/15/23 09:49 Glucose, Whole Blood Routine Laboratory Last Values Glucose (Clinic) 160 mg/dL (60-115) H 07/15/23 09:49 Assessment & Plan Assessment & Plan (1) DM2 (diabetes mellitus, type 2): Code(s): E11.9 - Type 2 diabetes mellitus without complications Plan: This is a 58-year-old white female with a history of type 2 diabetes being treated with metformin and basal-bolus insulin with poor glycemic control and known microvascular complications namely neuropathy and microalbuminuria. Plan is start Farxiga 5 mg in light of the micro albuminuria and inadequate glycemic control. Will check a basic metabolic panel in 10 days Patient was told to scan with the Bhavesh more frequently. Will reduce Lantus to 15 units and 10 units of continued a.m. hypoglycemia. Patient was told to follow-up with the telehealth nurse educator. Went over side effects of Farxiga including but not limited to dehydration, DKA and Alma's gangrene (2) Diabetes mellitus with nephropathy: Comment: sees Dr Lashell hancock, yearly Code(s): E11.21 - Type 2 diabetes mellitus with diabetic nephropathy Orders: Orders AMB Hemoglobin A1c Today E11.21 - Type 2 diabetes mellitus with diabetic nephropathy Basic Metabolic Panel 10 Days E11.65 - Type 2 diabetes mellitus with hyperglycemia Referrals Diabetes Education Referral E11.21 - Type 2 diabetes mellitus with diabetic nephropathy Medications: New dapagliflozin propanediol (Farxiga) 5 mg PO DAILY 30 tabs 5RF Coding Level of Care Code Est Pt Level 4 (67714) Diagnoses DM2 (diabetes mellitus, type 2) E11.9 Diabetes mellitus with nephropathy E11.21
[2023-07-15 09:40] VITALS: BP 150/72; PULSE 88; BMI 29.6
== END 2023-07-15 10:08 | disposition home or self-care (01) ==
PROVIDERS: PCP Nurse Practitioner Family; Visit Provider Internal Medicine Endocrinology, Diabetes & Metabolism
DX: E11.21 Type 2 diabetes mellitus with diabetic nephropathy (principal)
CPT/HCPCS: 99214

== ENCOUNTER → 2023-07-15 09:38 | Outpatient (BNVA) | payer OTHER, SELFPAY | PROVIDERS: PCP Nurse Practitioner Family; Visit Provider Internal Medicine Endocrinology, Diabetes & Metabolism | DX: E11.21 Type 2 diabetes mellitus with diabetic nephropathy (principal); Z79.4 Long term (current) use of insulin | CPT/HCPCS: 82947; 83036; 99212 ==

== ENCOUNTER 2023-07-20 10:36 | Outpatient (AMB) | payer OTHER, SELFPAY ==
[2023-07-20 10:47] VITALS: BP 140/76; PULSE 91; O2SAT 97; BMI 29.8
--- NOTE | 2023-07-20 10:47 | MHC.PC.OV ---
Vital Signs 07/20/23 10:47 Height 5 ft 2 in Weight 163 lb BMI 29.8 BP 140/76 H Blood Pressure Location Lt brachial Position Sitting Pulse 91 Pulse Source Pulse Oximeter Pulse Oximetry (%) 97 Oxygen Delivery Method Room Air Intake Visit Reasons: trouble breathing after exertion/ walking distance Intake Note: patient is ere today for trouble breathing after exertion/walking distance Allergies No Known Allergies Allergy (Verified 07/20/23 11:02) Medication List - Last Reconciled 07/20/23 by Anel Barrera MD albuterol sulfate 90 mcg/actuation (Ventolin HFA) 2 puffs inhalation Q4-6H PRN aspirin (Adult Low Dose Aspirin) 81 mg PO DAILY atorvastatin 80 mg PO DAILY blood sugar diagnostic (FreeStyle Lite Strips) As directed- checks 4 X/day blood-glucose meter (FreeStyle Lite Meter kit) As directed checks 4 X/dasy buprenorphine HCl 2 mg sublingual DAILY bupropion HCl 300 mg PO QAM buspirone 10 mg PO BID dapagliflozin propanediol (Farxiga) 5 mg PO DAILY diclofenac sodium 1% (Arthritis Pain (diclofenac)) 2 grams topical QID PRN dulaglutide (Trulicity) 1.5 mg (0.5 mL) subcut QWEEK flash glucose scanning reader (FreeStyle Bhavesh 2 [place]) As directed flash glucose sensor (FreeStyle Bhavesh 14 Day Sensor kit) As directed flash glucose sensor (FreeStyle Bhavesh 2 Sensor kit) As directed change every 14 days hydroxyzine HCl 10 mg PO BID PRN insulin glargine (Lantus Solostar U-100 Insulin) 30 units (0.3 mL) subcut QPM insulin lispro (Humalog KwikPen (U-100) Insulin) 5 units subcut TID lancets (FreeStyle Lancets) As directed lisinopril 5 mg PO DAILY metformin 1,000 mg PO BID nicotine 1 patch transdermal Q24H omeprazole 40 mg PO DAILY pen needle, diabetic (BD Ultra-Fine Mini Pen Needle) As directed 4 times a day quetiapine 25 mg PO BEDTIME ropinirole 0.25 mg PO BID Tobacco use date assessed: 07/20/23 Dental Screening Dental Screen Date: 07/20/23 Did you have a dental visit in the last 12 months?: Yes Did you have a dental problem in the last 6 months where you did not have access to dental care?: No Was dental information given to patient?: Patient has dentist HPI trouble breathing after exertion/ walking distance HPI Details 58-year-old lady with diabetes mellitus hyperlipidemia, here today complaining of shortness of breath on exertion. This has been ongoing now for the last several months and progressively getting worse. Has a hard time keeping up with her 12-year-old grandchild, has to take breaks when walking, or guarding. She has also been complaining of occasional chest pressure in left chest on climbing stairs or walking on an incline. She is a cigarette smoker, now down to just approximately 3 cigarettes a day, patient on nicotine patch 7 mg dose, does not smoke when using the patch. [facility] Medical History (Updated 07/20/23 @ 11:36 by Anel Barrera MD) Cigarette smoker motivated to quit Uncontrolled type 2 diabetes mellitus with hyperglycemia Diabetes mellitus with nephropathy Annual visit for general adult medical examination with abnormal findings section wound complications Encounter to establish care Type II diabetes mellitus Diabetes COPD (chronic obstructive pulmonary disease) Surgical History H/O angioplasty History of hysterectomy History of colonoscopy History of laparoscopic adjustable gastric banding S/P bilateral breast reduction S/P carpal tunnel release Status post cataract extraction Family History Sister Breast cancer Mother Breast cancer Substance use disorder Mental health disorder Brother Substance use disorder Brother Substance use disorder Sister No problems noted. 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 How often do you have a drink containing alcohol?: Never Total Score: 0 STAS-7 AMB Questionnaire STAS-7 Date STAS - 7 assessed: 12/29/22 Source: Developed by Drs. Jun Ceja, Anisa Goode, Sergey Vargas and colleagues, with an educational dakota from [employer]. Review of Systems Const All systems reviewed & are unremarkable except as noted in HPI and below Reports no additional complaints ENT Reports Normal hearing present Card Denies chest pain at rest and Denies pedal edema Resp Details: Occasional dry cough, and wheezing, uses her inhaler at least every other day GI Denies abdominal pain Musc Denies abnormal gait, Denies muscle cramps and Denies radiating pain into limb Neuro Reports Normal hearing present and Denies abnormal gait Psych Reports no additional complaints Fantasma/Lymph Reports no additional complaints Aller/Immun Reports no additional complaints Physical exam (Primary Care) Vital Signs: Last Vital Signs Pulse 91 07/20/23 10:47 BP 140/76 H 07/20/23 10:47 Pulse Ox 97 07/20/23 10:47 Oxygen Delivery Method Room Air 07/20/23 10:47 BMI result Body Mass Index 29.8 Tobacco/Smoking Status: Tobacco use Status Tobacco use date assessed 07/20/23 07/20/23 10:53 Patient Tobacco Use Status Current everyday Tobacco 07/20/23 10:53 Tobacco use type Cigarette 07/20/23 10:53 e-Cigarette/Vaping Use Never Used 07/20/23 10:53 Thrive Assessment: Date of Thrive Assessment Date Thrive assessed 12/29/22 07/20/23 10:53 Const General: cooperative and no acute distress Orientation/consciousness: patient oriented x3 HENMT Head: Yes normocephalic and Yes atraumatic Face and sinus: Yes sinuses nontender Mouth: oropharynx normal and moist mucous membranes Throat: Yes posterior oropharynx normal Neck Neck: Yes normal visual inspection, Yes full ROM and Yes no lymphadenopathy Resp Effort & Inspection: normal respiratory effort and able to speak in complete sentences Auscultation: clear to auscultation bilaterally, no rhonchi and no wheezes Cardio Rate: regular rate Rhythm: regular rhythm Heart sounds: S1 normal heart sound present and S2 normal heart sound present GI Palpation (GI): Soft to palpation, nontender and no guarding Auscultation: normal bowel sounds Neuro General: patient oriented x3 Cranial nerves: Yes Normal hearing present Gait exam (Neuro): Normal gait present Extrem General: Yes full ROM and No edema Assessment and Plan Assessment & Plan (1) Fatigue: Code(s): R53.83 - Other fatigue Qualifiers: Fatigue type: chronic, unspecified Qualified Code(s): R53.82 - Chronic fatigue, unspecified Plan: Check CBC, TSH with free T4, pulmonary function test ordered with methacholine child (2) Shortness of breath on exertion: Code(s): R06.02 - Shortness of breath Plan: Pulmonary function test ordered with methacholine child (3) Sensation of chest pressure: Code(s): R07.89 - Other chest pain Plan: EKG done showed abnormal findings, cardiology consult or (4) Abnormal EKG: Code(s): R94.31 - Abnormal electrocardiogram [ECG] [EKG] Plan: Presence of normal sinus rhythm with? Left atrial enlargement and right axis deviation,? Inferior infarct age undetermined. Cardiology consult ordered (5) Needs flu shot: Code(s): Z23 - Encounter for immunization Plan: Flu vaccine given (6) Cigarette smoker motivated to quit: Code(s): F17.210 - Nicotine dependence, cigarettes, uncomplicated Plan: Continue using nicotine patch, now down to 7 mg per patch, and smokes occasionally 3 cigarettes a day Orders: Orders PFT pulmonary function test Today F17.210 - Nicotine dependence, cigarettes, uncomplicated, R06.02 - Shortness of breath Influenza [id number] Immunization Today Z23 - Encounter for immunization Complete Blood Count Auto Diff Today R06.02 - Shortness of breath, R07.89 - Other chest pain, R53.83 - Other fatigue, R94.31 - Abnormal electrocardiogram [ECG] [EKG] TSH reflex Free T4 Today R06.02 - Shortness of breath, R07.89 - Other chest pain, R53.83 - Other fatigue, R94.31 - Abnormal electrocardiogram [ECG] [EKG] RT pft w methacholine Today F17.210 - Nicotine dependence, cigarettes, uncomplicated, R06.02 - Shortness of breath AMB EKG-In Office Today R06.02 - Shortness of breath, R07.89 - Other chest pain, Z13.6 - Encounter for screening for cardiovascular disorders Referrals Cardiology Referral R06.02 - Shortness of breath, R07.89 - Other chest pain, R53.83 - Other fatigue, R94.31 - Abnormal electrocardiogram [ECG] [EKG] Medications: New flu vacc [id number] 6mos up(PF) 0.5 mL IM ONCE 0.5 mL 0RF Z23 - Encounter for immunization Coding Level of Care Code Est Pt Level 4 (89206) Diagnoses Chronic fatigue R53.82 Fatigue type: chronic, unspecified Shortness of breath on exertion R06.02 Sensation of chest pressure R07.89 Abnormal EKG R94.31 Needs flu shot Z23 Cigarette smoker motivated to quit F17.210
== END 2023-07-20 12:08 | disposition home or self-care (01) ==
PROVIDERS: PCP Internal Medicine; Visit Provider Internal Medicine
DX: R53.82 Chronic fatigue, unspecified (principal); R06.02 Shortness of breath; R07.89 Other chest pain; R94.31 Abnormal electrocardiogram [ECG] [EKG]; Z23 Encounter for immunization; F17.210 Nicotine dependence, cigarettes, uncomplicated
CPT/HCPCS: 90471; 90686; 99214

== ENCOUNTER 2023-08-24 09:37 | Outpatient (REF) | payer OTHER, SELFPAY ==
--- NOTE | 2023-08-24 10:53 | PFT_ITS ---
Forced vital capacity 116%, FEV1 54%, FEV1/FVC ratio is 37. YAR20-27 40% and MVV is 44%. Post bronchodilator therapy, there is significant improvement in all flow volumes. Total lung capacity 99% and residual volume 79%. Diffusion capacity is 14%, which is markedly decreased and most likely due to some technical problems. CONCLUSION: Severe obstructive airway disorder. Excellent response to bronchodilator therapy. These findings are consistent with bronchial asthma, and for this, clinical correlation is recommended. MD JOI Cleaning/MODShukri / [id number]
== END 2023-08-24 09:38 | disposition home or self-care (01) ==
LOC: HO.RESP 09:37
PROVIDERS: PCP Internal Medicine; Visit Provider Internal Medicine
DX: R06.02 Shortness of breath (principal); F17.210 Nicotine dependence, cigarettes, uncomplicated
CPT/HCPCS: 94010; 94727; 94729

== ENCOUNTER → 2023-08-24 10:53 | Outpatient (BNV) | payer OTHER, SELFPAY | PROVIDERS: PCP Internal Medicine; Visit Provider Internal Medicine | DX: R06.02 Shortness of breath (principal); F17.210 Nicotine dependence, cigarettes, uncomplicated | CPT/HCPCS: 94060; 94727; 94729 ==

== ENCOUNTER 2023-08-31 09:21 | Outpatient (REF) | payer OTHER, SELFPAY ==
--- NOTE | ~2023-08-31 | US_ITS ---
EXAMINATION: ANKLE-BRACHIAL INDICES SINGLE LEVEL PULSE VOLUME RECORDING ARTERIAL DUPLEX BILATERAL LEGS CLINICAL INFORMATION: Peripheral arterial disease. Smoking. Diabetes. History of angioplasty. COMPARISON: None TECHNIQUE: Ankle-brachial indices and PVR at the ankle were obtained. Duplex Doppler of the bilateral lower extremity arterial systems was performed. FINDINGS: RIGHT: Ankle-brachial index: 0.99 (posterior tibial). Dorsalis pedis not audible. PVR: Abnormal Common femoral: PSV 151 cm/s. Triphasic waveform. Deep femoral: PSV 176 cm/s. Triphase waveform. Proximal superficial femoral: PSV 113 cm/s. Triphasic waveform. Mid superficial femoral: PSV 83 cm/s. Triphasic waveform. Distal superficial femoral: PSV 109 cm/s. Triphasic waveform. Popliteal: PSV 101 cm/s. Triphasic waveform. Posterior tibial: PSV 106 cm/s. Monophasic waveform. Peroneal: Not visualized. Anterior tibial: PSV 65 cm/s. Monophasic waveform. Dorsalis pedis: PSV 14 cm/s. Monophasic waveform. LEFT: Ankle-brachial index: Dorsalis pedis and posterior tibial not audible. PVR: Abnormal Common femoral: PSV 106 cm/s. Triphasic waveform. Deep femoral: PSV 72 cm/s. Biphasic waveform. Proximal superficial femoral: PSV 89 cm/s. Biphasic waveform. Mid superficial femoral: Occluded. Distal superficial femoral: Reconstituted. PSV 112 cm/s. Monophasic waveform. Popliteal: PSV 48 cm/s. Monophasic waveform. Posterior tibial: PSV 27 cm/s. Monophasic waveform. Peroneal: PSV 32 cm/s. Monophasic waveform. Anterior tibial: PSV 48 cm/s. Monophasic waveform. Dorsalis pedis: PSV 52 cm/s. Monophasic waveform. US/US PITO complete IMPRESSION: Right lower extremity: Normal posterior tibial PITO 0.99. Dorsalis pedis is not audible. Abnormal PVR. Tibial level disease. Left lower extremity: Unobtainable PITO due to dorsalis pedis and posterior tibial not audible. Abnormal PVR. Occluded mid SFA with distal reconstitution. Significant popliteal artery stenosis. Tibial level disease.
--- NOTE | ~2023-08-31 | US_ITS ---
EXAMINATION: ANKLE-BRACHIAL INDICES SINGLE LEVEL PULSE VOLUME RECORDING ARTERIAL DUPLEX BILATERAL LEGS CLINICAL INFORMATION: Peripheral arterial disease. Smoking. Diabetes. History of angioplasty. COMPARISON: None TECHNIQUE: Ankle-brachial indices and PVR at the ankle were obtained. Duplex Doppler of the bilateral lower extremity arterial systems was performed. FINDINGS: RIGHT: Ankle-brachial index: 0.99 (posterior tibial). Dorsalis pedis not audible. PVR: Abnormal Common femoral: PSV 151 cm/s. Triphasic waveform. Deep femoral: PSV 176 cm/s. Triphase waveform. Proximal superficial femoral: PSV 113 cm/s. Triphasic waveform. Mid superficial femoral: PSV 83 cm/s. Triphasic waveform. Distal superficial femoral: PSV 109 cm/s. Triphasic waveform. Popliteal: PSV 101 cm/s. Triphasic waveform. Posterior tibial: PSV 106 cm/s. Monophasic waveform. Peroneal: Not visualized. Anterior tibial: PSV 65 cm/s. Monophasic waveform. Dorsalis pedis: PSV 14 cm/s. Monophasic waveform. LEFT: Ankle-brachial index: Dorsalis pedis and posterior tibial not audible. PVR: Abnormal Common femoral: PSV 106 cm/s. Triphasic waveform. Deep femoral: PSV 72 cm/s. Biphasic waveform. Proximal superficial femoral: PSV 89 cm/s. Biphasic waveform. Mid superficial femoral: Occluded. Distal superficial femoral: Reconstituted. PSV 112 cm/s. Monophasic waveform. Popliteal: PSV 48 cm/s. Monophasic waveform. Posterior tibial: PSV 27 cm/s. Monophasic waveform. Peroneal: PSV 32 cm/s. Monophasic waveform. Anterior tibial: PSV 48 cm/s. Monophasic waveform. Dorsalis pedis: PSV 52 cm/s. Monophasic waveform. US/US arterial duplex LE BI IMPRESSION: Right lower extremity: Normal posterior tibial PITO 0.99. Dorsalis pedis is not audible. Abnormal PVR. Tibial level disease. Left lower extremity: Unobtainable PITO due to dorsalis pedis and posterior tibial not audible. Abnormal PVR. Occluded mid SFA with distal reconstitution. Significant popliteal artery stenosis. Tibial level disease.
== END 2023-08-31 09:22 | disposition home or self-care (01) ==
LOC: HO.US 09:21
PROVIDERS: PCP Internal Medicine; Visit Provider Surgery Vascular Surgery
DX: I73.9 Peripheral vascular disease, unspecified (principal)
CPT/HCPCS: 93923; 93925

== ENCOUNTER 2023-09-07 10:14 | Outpatient (AMB) | payer OTHER, SELFPAY ==
--- NOTE | 2023-09-07 10:22 | MHC.OFFVIS ---
Intake Intake Visit Reasons: 6 mo follow up Arterial US 08/31/23 Intake Note: pt here for 6 months FU Arterial US and hx of right LE angio on 12/31/22 Pt states that some of her symptoms have come back she states that her toe on the right foot has some discoloration and shes getting red dots on her feet Allergies No Known Allergies Allergy (Verified 09/07/23 10:25) HPI 6 mo follow up Arterial US 08/31/23 HPI Details Very pleasant 58-year-old female presents for evaluation regarding peripheral vascular disease. She had original treatment at [facility] vascular by Dr. Lowe. She had a known wound left lower extremity occlusion and has had intervention on the right. She is doing reasonably the same. She continues to be able to ambulate a block. It appears that she has several other issues that have been her focus of late. She has been followed by a pulmonary cardiology and Renal. She now presents to us for vascular follow-up. [facility] Medical History Cigarette smoker motivated to quit Uncontrolled type 2 diabetes mellitus with hyperglycemia Diabetes mellitus with nephropathy Annual visit for general adult medical examination with abnormal findings section wound complications Encounter to establish care Type II diabetes mellitus Diabetes COPD (chronic obstructive pulmonary disease) Surgical History H/O angioplasty History of hysterectomy History of colonoscopy History of laparoscopic adjustable gastric banding S/P bilateral breast reduction S/P carpal tunnel release Status post cataract extraction Family History Sister Breast cancer Mother Breast cancer Substance use disorder Mental health disorder Brother Substance use disorder Brother Substance use disorder Sister No problems noted. 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 Cognitive needs: Yes Hearing needs: No Vision needs: Yes (Glaucoma and cataracts being treated) Review of Systems Const All systems reviewed & are unremarkable except as noted in HPI and below Reports no additional complaints ENT Reports Normal hearing present Card Denies chest pain, Denies chest pain at rest, Denies chest pain with activity and Denies pedal edema Resp Denies cough GI Denies abdominal pain Musc Denies abnormal gait, Denies muscle cramps and Denies radiating pain into limb Skin/Breast Denies skin ulcer and Denies wounds Neuro Reports Normal hearing present and Denies abnormal gait Psych Reports no additional complaints Physical Exam Const General: cooperative, healthy appearing and comfortable Orientation/consciousness: oriented to person, oriented to place and oriented to time HEENT Head: Yes normal to inspection Neck Neck: Yes normal visual inspection Carotids: no bruits Chest Chest palpation & inspection: normal inspection of the chest Resp Effort & Inspection: normal respiratory effort and able to speak in complete sentences Auscultation: clear to auscultation bilaterally, no crackles, no rales, no rhonchi and no wheezes Cardio Other: Bilateral DP signals Rate: regular rate Rhythm: regular rhythm Heart sounds: S1 normal heart sound present and S2 normal heart sound present Bruits: no carotid bruits Peripheral pulses: Peripheral pulses 2+ throughout GI Inspection: Yes normal to inspection Skin Wounds: no wounds Hair: normal Neuro General: oriented to person, oriented to place and oriented to time Cranial nerves: Yes CN's II-XII intact bilaterally and Yes Normal hearing present Cognition (Neuro): normal cognition Motor exam (neuro): 5/5 motor strength present throughout Extrem Other: venous exam: No significant superficial varicosities or spider telangiectasias, minimal edema General: No clubbing, No cyanosis and No edema Psych Appearance: grossly normal Mental Status: mental status grossly normal Speech and movement: Normal speech and movement present Results Reviewed Results Reviewed: Arterial ultrasound dated 09/01/2023 was reviewed. Demonstrates right side PITO of 0.99 with concerns of below-knee disease. Left side known occlusion of SFA. Assessment & Plan Assessment & Plan (1) PAD (peripheral artery disease): Code(s): I73.9 - Peripheral vascular disease, unspecified Plan: Patient notes leg pain when walking distances. I have discussed the pathophysiology of peripheral vascular disease with the patient. I have also discussed risk factor modification. I have reviewed the patient's arterial testing which reveals right leg below-knee disease. the patient would benefit from a right leg endovascular peripheral angiogram with possible angioplasty, stent, and/or atherectomy. This has been discussed in detail with the patient along with risks, benefits, and complications. This includes but is not limited to bleeding, infection, heart attack, need for emergent surgical repair, limb ischemia, blood vessel damage, bleeding, puncture, kidney injury, bruising, allergic reaction, and skin reaction. The patient demonstrates a clear understanding. We will schedule for the next appropriate time. Thank you for allowing us to assist in this patient's care. Coding Level of Care Code Est Pt Level 4 (31499) Diagnoses PAD (peripheral artery disease) I73.9
== END 2023-09-07 10:54 | disposition home or self-care (01) ==
PROVIDERS: PCP Internal Medicine; Visit Provider Surgery Vascular Surgery
DX: I73.9 Peripheral vascular disease, unspecified (principal)
CPT/HCPCS: 99214

== ENCOUNTER → 2023-09-07 10:14 | Outpatient (BNVA) | payer OTHER, SELFPAY | PROVIDERS: PCP Internal Medicine; Visit Provider Surgery Vascular Surgery | DX: E11.21 Type 2 diabetes mellitus with diabetic nephropathy (principal); I73.9 Peripheral vascular disease, unspecified | CPT/HCPCS: 99211; 99212 ==

== ENCOUNTER 2023-09-07 11:02 | Outpatient (AMB) | payer OTHER, SELFPAY ==
--- NOTE | 2023-09-07 11:37 | A.OFFVIS_ITS ---
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 Hh Case Manager Required: No Accompanied by: Self / Same As Patient Allergies No Known Allergies Allergy (Verified 09/07/23 10:25) HPI Comprehensive Diabetes Asmnt Most Recent Diabetes Results: Microalb/Creat Ratio 223.9 ug/mg cr 04/21/22 Cholesterol 137 mg/dL 11/24/22 HDL Cholesterol 52 mg/dL 11/24/22 Triglycerides 208 mg/dL 11/24/22 Creatinine 1.31 mg/dL (0.5-1.4) 11/24/22 Blood Urea Nitrogen 18 mg/dL (9-16) H 11/24/22 Sodium 139 mmol/L (135-145) 11/24/22 Potassium 4.5 mmol/L (3.3-5.1) 11/24/22 Chloride 101 mmol/L (96-108) 11/24/22 Carbon Dioxide 26 mmol/L (22-29) 11/24/22 Calcium 9.3 mg/dL (8.4-10.2) 11/24/22 AST 24 U/L (5-31) 11/24/22 ALT 28 U/L (0-31) 11/24/22 Total Protein 7.2 g/dL (6.5-8.0) 11/24/22 Albumin 4.1 g/dL (3.5-5.0) 11/24/22 [facility] Medical History Cigarette smoker motivated to quit Uncontrolled type 2 diabetes mellitus with hyperglycemia Diabetes mellitus with nephropathy Annual visit for general adult medical examination with abnormal findings section wound complications Encounter to establish care Type II diabetes mellitus Diabetes COPD (chronic obstructive pulmonary disease) Surgical History H/O angioplasty History of hysterectomy History of colonoscopy History of laparoscopic adjustable gastric banding S/P bilateral breast reduction S/P carpal tunnel release Status post cataract extraction Family History Sister Breast cancer Mother Breast cancer Substance use disorder Mental health disorder Brother Substance use disorder Brother Substance use disorder Sister No problems noted. 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 Assess patient education level/literacy/barriers, patient reports she has had diabetes for over 40 years last A1c was 7.8% on 07/15/2023 Patient questions/concerns, patient has been experiencing prolonged hypoglycemic event. Reports she uses sliding scale which she did not bring to today's visit. Patient has meal service for 10 meals daily where she picks from in use. Reports that she uses sliding scale to correct glucose more than taking pre meals. She is also on Lantus 15 units at this time Started Farxiga 5 mg in July 2023 She is using freestyle Bhavesh check glucose levels Patient above target 37% Patient at target 60% Patient below target 3% The patient met all learning objectives and was able to verbalize understanding and provide teach back of education topics discussed . The patient was provided with the opportunity to ask questions and all questions were answered. Topics covered in today?s session included: Medications (If applicable) * Name of medication? * Dosing/administration instructions? * Mechanism of action? * Potential side effects? * Potential adverse reaction and appropriate treatment? * Review onset, peak, duration Assess for concerns re: insurance coverage, cost, barriers to compliance Insulin/Injectables (If applicable) * Storage/care of insulin?? * Injection sites? * Site rotation? * Onset, peak, duration * Drawing up insulin? * Injecting insulin/other injectables? * Sharps disposal Continuous blood glucose monitoring (if applicable) Hypoglycemia and Hyperglycemia * Signs and symptoms? * Causes?? * Treatment? * Preventing hypoglycemia? * When to seek medical attention * Blood glucose targets and how you feel when your blood glucose is in and out of your target ranges. * Monitoring and knowing your A1C. * What can make blood glucose go up and down and preventing high and low blood glucose. * Review of blood sugar targets in expected goal range and outside of expected goal range. * Problem solving and preventing hyper/hypoglycemia. * Sick day management of diabetes. * Using blood sugar results in decision making process in managing diabetes. ?Patient was receptive to information provided and participated in the discussion. Asked?appropriate questions and demonstrated good understanding of the topics discussed.? ? Educational Materials: The patient was provided with the following written educational materials: Target Goal, how to treat low blood sugar is rule of 15s handout Smart Goal: Patient will use rule of 15 to treat hypoglycemia Patient Response to instructions: Comprehension of 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: Fair Readiness to make changes:? Contemplation How confident they feel about making changes: Fair Patient 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: Reduce Lantus 15 units to Lantus 12 units Bring copy of sliding scale to next visit Bring menus to next visit Coding Level of Care Code Est Pt Level 1 (46371) Diagnoses Diabetes mellitus with nephropathy E11.21
== END 2023-09-07 11:50 | disposition home or self-care (01) ==
PROVIDERS: PCP Internal Medicine; Visit Provider Registered Nurse Diabetes Educator
DX: E11.21 Type 2 diabetes mellitus with diabetic nephropathy (principal)

== ENCOUNTER 2023-09-15 05:59 | Day surgery (SDC) | payer OTHER, SELFPAY ==
[2023-09-15] VITALS (12 sets, daily range): BP systolic 112–133; BP diastolic 56–78; PULSE 66–86; RESP 17–18; TEMP 36.6–36.7; O2SAT 95–98; BMI 28.1
[2023-09-15 06:28] LABS: Glucose, Whole Blood 160 mg/dL (60-115)
[2023-09-15 07:01] LABS: MANUAL DIFF FLAG NO
[2023-09-15 07:03] LABS: Basophils Absolute Auto 0.1 X10*3/uL (0.0-0.2); Basophils Percent Auto 0.9 % (0-2); Eosinophils Absolute Auto 0.3 X10*3/uL (0.0-0.4); Eosinophils Percent Auto 3.5 % (0-4); Hematocrit 34.3 % (37.0-47.0); Imm Gran Abs Auto 0.03 X10*3/uL (0.00-0.03); Imm Gran Pct Auto 0.3 % (0.0-0.4); Lymphocytes Absolute Auto 3.4 X10*3/uL (1.2-4.9); Lymphocytes Percent Auto 37.7 % (20-40); Mean Corpuscular HGB Conc 32.1 g/dl (31.0-35.0); Mean Corpuscular Hemoglobin 27.8 pg (27.0-33.0); Mean Corpuscular Volume 86.8 fL (80.0-98.0); Mean Platelet Volume 10.2 fL (9.4-12.3); Monocytes Absolute Auto 0.6 X10*3/uL (0.1-1.2); Monocytes Percent Auto 6.4 % (2-11); Neutrophils Absolute Auto 4.6 x10*3/uL (2.0-8.3); Neutrophils Percent Auto 51.2 % (45-73); Platelet Count 231 X10*3/uL (160-400); Red Blood Count 3.95 X10*6/uL (4.20-5.50); Red Cell Distribution Width 14.4 % (11.0-16.0)
[2023-09-15 07:21] LABS: Blood Urea Nitrogen 13 mg/dL (9-16); Creatinine Clr Calc Pharmacy 47.3; Estimated Glomerular Filt Rate 45
[2023-09-15] MEDS: 0.9 % Sodium Chloride 1,000 ML 100 ML IVCONT (07:22)
--- NOTE | 2023-09-15 08:50 | W.PM.OPN ---
Operative Note Operative Note Date of Service: 09/15/23 Narrative: Angiogram report from [facility] Preoperative diagnosis: Atherosclerosis of right lower extremity with activity limiting claudication Postoperative diagnosis: Same Procedure: 1. Ultrasound-guided [] common femoral access 2. Aortogram with [] lower extremity runoff Surgeon:Marvin Chopra M.D., FACS, RPVI Die Assembler:None Anesthesia: Local with moderate conscious sedation. Total intraservice moderate sedation time was 20 minutes. I monitored the patient's level of consciousness and physiologic status continuously throughout the procedure. Specimens:none Drains:none Estimated blood loss: Less than 10 ml Implant: None Indications: 58-year-old female with prior history of right lower extremity endovascular intervention presents for severe claudication in skin discoloration. Noninvasive testing was concerning for below-knee disease. She now presents for endovascular intervention The patient has signed the informed consent after reviewing risks, complications, benefits, and alternatives previously discussed with the patient. The patient was given the opportunity to ask any additional questions or voice any concerns. All questions were answered to the patient's satisfaction. Procedure in detail: Patient was brought to the angiography suite prior to which a time-out was called for patient identification and site verification. Bilateral groins were prepped and draped in the standard surgical fashion. Under ultrasound guidance left common femoral was punctured with micro puncture needle and wire. Subsequently a precision 4 German sheath was then placed. Bentson wire was advanced to the level of the aorta. 4 German Flush catheter was brought up and parked at the level of the renal arteries. Aortogram was then undertaken. Catheter was brought down to the level of the iliac bifurcation. Iliacs were subsequently imaged. Catheter was then brought in up and over to the right side SFA. Runoff study was then undertaken. No intervention was indicated. Catheter wire sheath was removed. Direct pressure was held for 10 minutes. Patient tolerated the procedure well. Interpretation of films: 1. Ultrasound demonstrates appropriate femoral puncture. Image of which was saved. 2. Aortogram demonstrates appropriate caliber aorta. Minimal disease. Appropriate take-off of the renals. 3. Iliac images demonstrate no significant disease 4. Right Leg Common femoral artery: No significant disease Profundus Femoris: No significant disease Superficial femoral artery: No significant disease, mild moderate stenosis at Romaine's canal Popliteal artery (p1,p2,p3): No significant disease Anterior tibial artery: No significant disease patent all the way to the foot Peroneal artery: Occludes in the proximal quarter Posterior tibial artery: No significant disease patent to the foot Dorsalis pedis/plantar arch: No flow in arch significant small vessel disease Conclusion: 1. Successful diagnostic angiogram 2. Anticoagulation status: No change This note is constructed using voice recognition software. While every effort has been made to ensure accuracy, computer equipment repairer errors may have been included. Thank you for allowing me to participate in the care of your patient. Yours sincerely, Marvin Chopra MD, FACS, R.P.V.I.
== END 2023-09-15 12:37 | disposition home or self-care (01) ==
PROVIDERS: PCP Internal Medicine; Visit Provider Surgery Vascular Surgery
DX: E11.51 Type 2 diabetes mellitus with diabetic peripheral angiopathy without gangrene (principal); I70.211 Atherosclerosis of native arteries of extremities with intermittent claudication, right leg; E11.65 Type 2 diabetes mellitus with hyperglycemia; Z79.4 Long term (current) use of insulin; J44.9 Chronic obstructive pulmonary disease, unspecified; Z79.85 Long-term (current) use of injectable non-insulin antidiabetic drugs; Z79.84 Long term (current) use of oral hypoglycemic drugs; F17.210 Nicotine dependence, cigarettes, uncomplicated; Z98.890 Other specified postprocedural states
CPT/HCPCS: 36247; 36415; 75630; 76937; 82565; 82947; 84520; 85025; A4364; C1769; C1887; J1644; J2250; J2310; J3010; Q9967

== ENCOUNTER → 2023-09-15 05:59 | Outpatient (BNV) | payer OTHER, SELFPAY | PROVIDERS: PCP Internal Medicine; Visit Provider Surgery Vascular Surgery | DX: I70.211 Atherosclerosis of native arteries of extremities with intermittent claudication, right leg (principal) | CPT/HCPCS: 75625; 75710; 76937 ==

== ENCOUNTER 2023-09-28 09:58 | Outpatient (AMB) | payer OTHER, SELFPAY ==
--- NOTE | 2023-09-28 10:02 | A.OFFVIS_ITS ---
Intake Vital Signs 09/28/23 10:05 Height 5 ft 2 in Weight 155 lb BMI 28.3 Intake Visit Reasons: 2 week follow up right leg angiogram Intake Note: Pt here for a 2 week fallow up angiogram on her right leg. Pt states that she is feling horrible she has a lot of pain on the right foot to the point where she can not put a shoe on that foot. She also states that her foot is turning a different color Allergies No Known Allergies Allergy (Verified 09/28/23 10:05) HPI 2 week follow up right leg angiogram HPI Details Very complex 58-year-old female presents for follow-up status post angiogram. She reports that her right lower extremity has increased in pain since her last visit. It is to the point where she can not even touch the digits. She reports pain all the time and is unrelated to ambulation. She continues to smoke about half pack per day. She is a diabetic. In addition she does have back pain issues that she reports. She now presents to us for vas cular follow-up. Of note she is concerned about the discoloration of her foot which was present prior to the procedure peer [facility] Medical History Cigarette smoker motivated to quit Uncontrolled type 2 diabetes mellitus with hyperglycemia Diabetes mellitus with nephropathy Annual visit for general adult medical examination with abnormal findings section wound complications Encounter to establish care Type II diabetes mellitus Diabetes COPD (chronic obstructive pulmonary disease) Surgical History H/O neck surgery History of mandibular surgery H/O foot surgery H/O hernia repair H/O section H/O angioplasty History of hysterectomy History of colonoscopy History of laparoscopic adjustable gastric banding S/P bilateral breast reduction S/P carpal tunnel release Status post cataract extraction Family History Sister Breast cancer Mother Breast cancer Substance use disorder Mental health disorder Brother Substance use disorder Brother Substance use disorder Sister No problems noted. 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 Cognitive needs: Yes Hearing needs: No Vision needs: Yes (Glaucoma and cataracts being treated) Review of Systems Const All systems reviewed & are unremarkable except as noted in HPI and below Reports no additional complaints ENT Reports Normal hearing present Card Denies chest pain, Denies chest pain at rest, Denies chest pain with activity and Denies pedal edema Resp Denies cough GI Denies abdominal pain Musc Denies abnormal gait, Denies muscle cramps and Denies radiating pain into limb Skin/Breast Denies skin ulcer and Denies wounds Neuro Reports Normal hearing present and Denies abnormal gait Psych Reports no additional complaints Physical Exam Vital Signs: BMI result Body Mass Index 28.3 Const General: cooperative, healthy appearing and comfortable Orientation/consciousness: oriented to person, oriented to place and oriented to time HEENT Head: Yes normal to inspection Neck Neck: Yes normal visual inspection Carotids: no bruits Chest Chest palpation & inspection: normal inspection of the chest Resp Effort & Inspection: normal respiratory effort and able to speak in complete sentences Auscultation: clear to auscultation bilaterally, no crackles, no rales, no rhonchi and no wheezes Cardio Rate: regular rate Rhythm: regular rhythm Heart sounds: S1 normal heart sound present and S2 normal heart sound present Bruits: no carotid bruits Peripheral pulses: Peripheral pulses 2+ throughout GI Inspection: Yes normal to inspection Skin Other: right leg discolored digits Wounds: no wounds Hair: normal Neuro General: oriented to person, oriented to place and oriented to time Cranial nerves: Yes CN's II-XII intact bilaterally and Yes Normal hearing present Cognition (Neuro): normal cognition Motor exam (neuro): 5/5 motor strength present throughout Extrem Other: venous exam: No significant superficial varicosities or spider telangiectasias, minimal edema General: No clubbing, No cyanosis and No edema Psych Appearance: grossly normal Mental Status: mental status grossly normal Speech and movement: Normal speech and movement present Assessment & Plan Assessment & Plan (1) PAD (peripheral artery disease): Comment: 09/15/2023 diagnostic angiogram of right lower extremity Code(s): I73.9 - Peripheral vascular disease, unspecified Plan: in short she does appear to have adequate blood supply in as demonstrated through angiogram. I do believe that a lot of this may be neurogenic in nature secondary to her diabetes and back pain issues. At the current time she does have a significant amount of pain in the toes. I have taken the liberty of referring her to Pain Management. In addition she will follow up with us in approximately 3 months time for noninvasive arterial testing follow-up. Thank you for allowing us to assist in her care. If there are any questions or concerns please do not hesitate to contact us. Orders: Orders US arterial duplex LE BI 3 Months I73.9 - Peripheral vascular disease, unspecified Referrals Pain Management Referral M79.673 - Pain in unspecified foot Coding Level of Care Code Est Pt Level 4 (89400) Diagnoses PAD (peripheral artery disease) I73.9
[2023-09-28 10:05] VITALS: BMI 28.3
== END 2023-09-28 10:28 | disposition home or self-care (01) ==
PROVIDERS: PCP Internal Medicine; Visit Provider Surgery Vascular Surgery
DX: I73.9 Peripheral vascular disease, unspecified (principal)
CPT/HCPCS: 99213

== ENCOUNTER → 2023-09-28 09:58 | Outpatient (BNVA) | payer OTHER, SELFPAY | PROVIDERS: PCP Internal Medicine; Visit Provider Surgery Vascular Surgery | DX: I73.9 Peripheral vascular disease, unspecified (principal) | CPT/HCPCS: 99212 ==

== ENCOUNTER 2023-10-05 14:58 | Outpatient (AMB) | payer OTHER, SELFPAY ==
--- NOTE | 2023-10-05 15:07 | A.OFFVIS_ITS ---
Intake Vital Signs 3 10/05/23 15:13 Height 5 ft 2 in Weight 153 lb 2 oz BMI 28.0 BP 126/85 Blood Pressure Location Lt brachial Position Sitting Respiration 16 Pulse 98 Pulse Source Pulse Oximeter Pulse Oximetry (%) 96 Oxygen Delivery Method Room Air Intake Visit Reasons: Pain in unspecified foot/confirmed Allergies No Known Allergies Allergy (Verified 10/05/23 16:29) HPI HPI Comments 2 History of Present Illness0 Details Shama Lugo is a very pleasant 50-year-old female who presents to the office today for evaluation management of her right foot pain. Patient reports that she has been suffering with this pain for 2 weeks, the pain started suddenly after she underwent an angiogram for DVT confirmed on ultrasound. She states that after the angiogram she was told that the did not find any blood clots. Patient followed up with vascular to discuss concerns of swelling, discoloration and severe pain to her foot and she was referred here for evaluation and management. Patient's pain today is rated as a 4/10 right side from toes up to her ankle. In terms of muscle damage condition is described as aching, shooting, squeezing, numb, throbbing, shocking, stabbing, sharp, hot, burning, tingling, pins and needles. Pain is negatively impacting patient's enjoyment of life, general activity, mood, recreational activities, relationships with people, sleep and walking. Patient has a history of diabetes, tobacco use, peripheral artery disease, DVTs, previously on blood thinners but states that those were stopped earlier this year, GERD, elevated liver enzymes, substance abuse, restless leg syndrome, polyarthralgia, hyperlipidemia, COPD and peripheral neuropathy. [facility] Medical History Cigarette smoker motivated to quit Uncontrolled type 2 diabetes mellitus with hyperglycemia Diabetes mellitus with nephropathy Annual visit for general adult medical examination with abnormal findings section wound complications Encounter to establish care Type II diabetes mellitus Diabetes COPD (chronic obstructive pulmonary disease) Surgical History H/O neck surgery History of mandibular surgery H/O foot surgery H/O hernia repair H/O section H/O angioplasty History of hysterectomy History of colonoscopy History of laparoscopic adjustable gastric banding S/P bilateral breast reduction S/P carpal tunnel release Status post cataract extraction Family History Sister Breast cancer Mother Breast cancer Substance use disorder Mental health disorder Brother Substance use disorder Brother Substance use disorder Sister No problems noted. 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 Answers questions appropriately. Fully engaged in examination. HEENT: Normocephalic. Hearing intact. Cardiac: External chest normal in appearance. Respiratory: No cough, audible wheezing or stridor. Abdomen: without gross distension Neurological: Oriented to person, place, time and situation. Thought process intact. No gait abnormalities appreciated. Psychiatric: Appropriate mood and affect. Good judgment and insight. Skin: Swelling noted right ankle to toes. Erythema to top of foot, warm to touch. Discoloration of toes, cool to touch. Significant tenderness to very light touch over 1st 2nd and 3rd toes. Results Reviewed Results Reviewed: 08/31/23 US/US arterial duplex LE BI FINDINGS: RIGHT: Ankle-brachial index: 0.99 (posterior tibial). Dorsalis pedis not audible. PVR: Abnormal Common femoral: PSV 151 cm/s. Triphasic waveform. Deep femoral: PSV 176 cm/s. Triphase waveform. Proximal superficial femoral: PSV 113 cm/s. Triphasic waveform. Mid superficial femoral: PSV 83 cm/s. Triphasic waveform. Distal superficial femoral: PSV 109 cm/s. Triphasic waveform. Popliteal: PSV 101 cm/s. Triphasic waveform. Posterior tibial: PSV 106 cm/s. Monophasic waveform. Peroneal: Not visualized. Anterior tibial: PSV 65 cm/s. Monophasic waveform. Dorsalis pedis: PSV 14 cm/s. Monophasic waveform. LEFT: Ankle-brachial index: Dorsalis pedis and posterior tibial not audible. PVR: Abnormal Common femoral: PSV 106 cm/s. Triphasic waveform. Deep femoral: PSV 72 cm/s. Biphasic waveform. Proximal superficial femoral: PSV 89 cm/s. Biphasic waveform. Mid superficial femoral: Occluded. Distal superficial femoral: Reconstituted. PSV 112 cm/s. Monophasic waveform. Popliteal: PSV 48 cm/s. Monophasic waveform. Posterior tibial: PSV 27 cm/s. Monophasic waveform. Peroneal: PSV 32 cm/s. Monophasic waveform. Anterior tibial: PSV 48 cm/s. Monophasic waveform. Dorsalis pedis: PSV 52 cm/s. Monophasic waveform. IMPRESSION: Right lower extremity: Normal posterior tibial PITO 0.99. Dorsalis pedis is not audible. Abnormal PVR. Tibial level disease. Left lower extremity: Unobtainable PITO due to dorsalis pedis and posterior tibial not audible. Abnormal PVR. Occluded mid SFA with distal reconstitution. Significant popliteal artery stenosis. Tibial level disease. Assessment & Plan Assessment & Plan (1) PAD (peripheral artery disease): Comment: 09/15/2023 diagnostic angiogram of right lower extremity Code(s): I73.9 - Peripheral vascular disease, unspecified (2) Peripheral neuropathy: Code(s): G62.9 - Polyneuropathy, unspecified (3) Right foot pain: Code(s): M79.671 - Pain in right foot Plan Patient presented to office today for new patient visit with complaints of acute right foot pain, sudden onset after angiogram on 09/15/2023. Physical exam reveals swelling, redness and warmth to the right foot with discoloration and allodynia to toes. Unable to palpate PT/DR pulses, no doppler available in the office. She states these findings are new and have worsened over the last 2 weeks. Patient was evaluated by vascular who then referred her to our office for E/M. Patient is diabetic, she has known PAD with occlusions. History of blood thinners, no longer taking. Advised patient that she should be evaluated in [facility] to rule out DVT, infection or other post procedure complications. Her symptoms could be related to onset of CRPS, discussed this with patient at length. Priority would be to rule out underlying cause. Patient verbalizes understanding, all questions and concerns addressed during the visit. Patient agrees with plan to go to ER for evaluation. Follow up as needed. Coding Level of Care Code New Pt Level 4 (91046) Diagnoses PAD (peripheral artery disease) I73.9 Peripheral neuropathy G62.9 Right foot pain M79.671
[2023-10-05 15:13] VITALS: BP 126/85; PULSE 98; RESP 16; O2SAT 96; BMI 28.0
== END 2023-10-05 15:51 | disposition home or self-care (01) ==
PROVIDERS: PCP Internal Medicine; Referring Provider Surgery Vascular Surgery; Visit Provider Registered Nurse Emergency
DX: I73.9 Peripheral vascular disease, unspecified (principal); G62.9 Polyneuropathy, unspecified; M79.671 Pain in right foot
CPT/HCPCS: 99204

== ENCOUNTER → 2023-10-05 14:58 | Outpatient (BNVA) | payer OTHER, SELFPAY | PROVIDERS: PCP Internal Medicine; Referring Provider Surgery Vascular Surgery; Visit Provider Registered Nurse Emergency | DX: I73.9 Peripheral vascular disease, unspecified (principal); G62.9 Polyneuropathy, unspecified; M79.671 Pain in right foot | CPT/HCPCS: 99202 ==

== ENCOUNTER 2023-10-05 16:09 | Emergency (ER) | payer OTHER, SELFPAY ==
--- NOTE | ~2023-10-05 | US_ITS ---
EXAMINATION: NONINVASIVE ASSESSMENT OF THE ARTERIES OF THE RIGHT LOWER EXTREMITY Alexander Mcneal MD CLINICAL INFORMATION: History of peripheral vascular disease with discoloration of the leg TECHNIQUE: Right lower extremity duplex ultrasound was performed with velocity measurements and waveform analysis in the common femoral arteries, profunda femoris arteries, proximal mid and distal superficial femoral arteries, popliteal arteries and tibial vessels. This study was performed only at rest. COMPARISON: Bilateral lower extremity arterial exam 08/31/2023 FINDINGS: Velocities in cm/sec and phasicity as well as the presence of plaque are reported below. RIGHT LEG: There are calcified vascular wing seen throughout with plaque present throughout. Multiphasic flow is seen throughout with the exception of an area in the distal SFA with velocity elevation is significant and increased when compared to the prior study consistent with a stenosis.. An area of stenosis is also seen in the popliteal artery. Compared to the study from 08/31/2023, the elevated velocities in the SFA and popliteal are new. Common Femoral: 155 Profunda Femoris: 147 Proximal SFA: 128 Mid SFA: 138 Distal SFA: 324 Popliteal: 150 Peroneal (proximal mid and distal): 104, 40, 46 Posterior tibial (proximal mid and distal): 90, 78, 61 Dorsalis pedis: 90 -no flow seen in the midsection but this may be due to heavy calcification. Anterior tibial: 56 US/US arterial duplex LE RT IMPRESSION: Markedly calcified arterial wing are seen throughout with moderate plaque seen. There is evidence of a hemodynamically significant stenosis in the distal SFA and popliteal arteries. No flow is seen in the midsection of the dorsalis pedis which may be due to heavy calcification.
--- NOTE | ~2023-10-05 | US_ITS ---
EXAMINATION: US VENOUS ULTRASOUND WITH DOPPLER LOWER EXTREMITY, RIGHT CLINICAL INFORMATION: Right leg pain COMPARISON: None available. TECHNIQUE: Ultrasound of the deep veins is performed from the hip to the calf with compression sonography and color and pulse Doppler assessment. Spectral analysis with color-flow imaging is performed. FINDINGS: There is normal venous compression and respiratory variation and augmented flow. The visualized common femoral vein, superficial femoral vein, profunda femoral vein, popliteal vein, and the trifurcation region shows no evidence of deep venous thrombosis. There is no significant popliteal fossa cyst. The left common femoral vein appears normal. If the patient's symptoms persist, followup ultrasound in 5 days 7 days might be of value to exclude proximal propagation from a non-visualized calf vein. US/US venous duplex LE RT IMPRESSION: No DVT demonstrated in the right lower extremity.
--- NOTE | ~2023-10-05 | XR_ITS ---
EXAMINATION: XR FOOT, RIGHT CLINICAL INFORMATION: Pain COMPARISON: None available. TECHNIQUE: AP, lateral, and oblique views of the right foot. FINDINGS: Osteopenia. Bone alignment is normal. No fracture or dislocation. Mild degenerative changes of the midfoot. Calcaneal spurs. Atherosclerotic disease. XR/XR foot RT min 3V IMPRESSION: No acute findings.
[2023-10-05 16:18] VITALS: BP 100/56; PULSE 97; RESP 20; TEMP 36.8; O2SAT 98; BMI 28.3
--- NOTE | 2023-10-05 16:23 | ED_ITS ---
HPI - General Adult General Chief complaint: General Medical Stated complaint: ?blood clot in R foot Time Seen by Provider: 10/05/23 17:13 Source: patient Mode of arrival: ambulatory Limitations: no limitations History of Present Illness HPI narrative: Patient is a 58-year-old female who presents emergency department with referral from pain management today. She was at their office after being referred from vascular; Dr. Chopra for ongoing pain to the right lower extremity. Patient presents to Day reporting that she was told that she has a large blood clot to her right lower extremity. She states she has been having ongoing issues with pain swelling and discoloration to the right lower extremity but does admit that it has been worse over the past few weeks. At this time she is not on any anticoagulation. She denies any dizziness, lightheadedness, chest pain, shortness of breath, prolonged immobilization, recent surgery, personal history of DVT/PE/malignancy. Related Data Home Medications Medication 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 Recorded Confirmed buspirone 10 mg tablet 10 mg PO BID 04/03/22 09/15/23 flash glucose sensor (FreeStyle #1 ea 04/03/22 03/05/23 Bhavesh 14 Day Sensor kit) hydroxyzine HCl 10 mg tablet 10 mg PO BID PRN anxiety 04/03/22 09/15/23 lancets 28 gauge (FreeStyle #100 ea 04/03/22 03/05/23 Lancets) quetiapine 25 mg tablet 25 mg PO BEDTIME 04/03/22 09/15/23 bupropion HCl 300 mg 24 hr tablet, 300 mg PO QAM 09/01/22 09/15/23 extended release aspirin 81 mg tablet,delayed 81 mg PO DAILY 11/24/22 09/15/23 release (Adult Low Dose Aspirin) pen needle, diabetic 31 gauge x #50 ea 11/24/22 03/05/2316 (BD Ultra-Fine Mini Pen Needle) buprenorphine HCl 2 mg sublingual 2 mg sublingual DAILY 04/07/23 09/15/23 tablet insulin lispro 100 unit/mL 5 unit subcut TID 04/07/23 09/15/23 subcutaneous pen (Humalog KwikPen (U-100) Insulin) insulin glargine 100 unit/mL (3 12 unit subcut QPM 09/15/23 09/15/23 mL) subcutaneous pen (Lantus Solostar U-100 Insulin) buspirone 15 mg tablet 15 mg PO BID 10/05/23 Previous Rx's Medication 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 Recorded diclofenac sodium 1 % topical gel 2 g topical QID PRN pain #100 grams 05/07/22 (Arthritis Pain (diclofenac)) blood sugar diagnostic (FreeStyle #100 ea 09/01/22 Lite Strips) blood-glucose meter (FreeStyle #1 ea 09/01/22 Lite Meter kit) flash glucose scanning reader #1 ea 12/29/22 (FreeStyle Bhavesh 2 [place]) atorvastatin 80 mg tablet 80 mg PO DAILY #90 tabs 04/12/23 nicotine 7 mg/24 hr daily 1 patch transdermal Q24H #14 ea 05/10/23 transdermal patch ropinirole 0.25 mg tablet 0.25 mg PO BID #60 tabs 05/25/23 metformin 1,000 mg tablet 1,000 mg PO BID #60 tabs 05/31/23 flash glucose sensor (FreeStyle #1 ea 06/07/23 Bhavesh 2 Sensor kit) dulaglutide 1.5 mg/0.5 mL 1.5 mg (0.5 mL) subcut QWEEK #2 mL 06/15/23 subcutaneous pen injector (Trulicity) albuterol sulfate 90 mcg/actuation 2 puff inhalation Q4-6H PRN 06/17/23 aerosol inhaler (Ventolin HFA) shortness of breath or wheezing #8.5 grams dapagliflozin propanediol 5 mg 5 mg PO DAILY #30 tabs 07/15/23 tablet (Farxiga) lisinopril 5 mg tablet 5 mg PO DAILY #30 tabs 08/23/23 omeprazole 40 mg capsule,delayed 40 mg PO DAILY #90 caps 09/15/23 release Allergies Allergy/AdvReac Type Severity Reaction Status Date / Time No Known Allergies Allergy Verified 10/05/23 16:29 Review of Systems 2 Review of Systems: Yes all other systems are reviewed and are negative PMFSH Past Medical History Attestation statement: The following information was validated with the patient. Source: old records reviewed Medical History Cigarette smoker motivated to quit Uncontrolled type 2 diabetes mellitus with hyperglycemia Diabetes mellitus with nephropathy Annual visit for general adult medical examination with abnormal findings section wound complications Encounter to establish care Type II diabetes mellitus Diabetes COPD (chronic obstructive pulmonary disease) Surgical History H/O neck surgery History of mandibular surgery H/O foot surgery H/O hernia repair H/O section H/O angioplasty History of hysterectomy History of colonoscopy History of laparoscopic adjustable gastric banding S/P bilateral breast reduction S/P carpal tunnel release Status post cataract extraction Family History Family History Sister Breast cancer Mother Breast cancer Substance use disorder Mental health disorder Brother Substance use disorder Brother Substance use disorder Sister No problems noted. Daughter Substance use disorder Mental health disorder Son Substance use disorder Mental health disorder Father Mental health disorder Social History Social History Household Members: None Housing: Other Unable to assess alcohol history related to: Unknown Alcohol intake: current Alcohol intake frequency: does not drink Patient Tobacco Use Status: Current everyday Tobacco user Tobacco use type: Cigarette Cigarettes Per Day: 3 Smoked in Last 30 Days: No e-Cigarette/Vaping Use: Never Used Use of substances other than those prescribed or required for medical reasons: Unknown Advance Directives: No Advance Directives Information Provided: No service: No Current occupational status: retired and disabled 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 No acute distress.?Normal affect. Eyes: Pupils equal, round and reactive to light.? ENT: Pharynx normal.?? Neck: Normal inspection.? Neck supple.?? CVS: Heart sounds normal. Normal heart rate and rhythm.? Pulses normal.?? Respiratory: No respiratory distress.? Lung sounds clear to auscultation bilaterally?? Abdomen: Soft and non-tender. Normoactive bowel sounds. Skin: Skin warm and dry.? .? Normal skin turgor.?? Extremities: Right lower extremity discoloration, dusky appearance, due to touch, tenderness upon palpation. Full AROM to the lower extremity ankle and foot. Doppler signal present to his PT, no Doppler signal identified for DP. Neuro: Moves all extremities spontaneously. Sensation intact bilaterally. Ambulates with normal steady gait. Course Course Course Narrative: RME:?58 yo, pmhx of PVD s/p angiogram follows w/ Dr. Chopra, here with right foot/ ankle/ lower leg pain and discoloration x4 days. Was evaluated by Dr. Chopra for this complaint. Was referred to Pain Management who then sent her to the emergency department for evaluation. She states I was told to have a large blood clot in my right leg . Not on AC. Denies sob, chest pain. no recent travel or long car rides. + Right toes dusky, cold, full rom, TTP of entire foot. diminished PT pulses with doppler, no DP pulses with doppler. Ambulating independently. Labs, ultrasound, x-ray ordered Full HPI, ROS and PE to be performed by the primary ED provider. Reevaluation(s) Reevaluation #1: Venous duplex ultrasound without evidence of DVT. Arterial ultrasound revealing multiphasic flow throughout however significant stenosis of the distal SFA and popliteal arteries when compared to prior study from 08/31/2023 and no flow in the mid section of the dorsalis pedis. I consult with vascular, Dr. Chopra regarding these findings, discussed these findings with patient as well. Patient will follow up outpatient with Dr. Chopra office, no indication for admission at this time. Patient states that she ?does not want any pain medication at this time?. Time: 20:19 Medications Administered Discontinued Medications Generic Name Dose Route Start Last Admin Trade Name Freq PRN Reason Stop Dose Admin Magnesium Sulfate 2 gm in 50 mls @ 25 mls/hr 10/05/23 17:15 10/05/23 19:58 Magnesium Sulfate/H2o IV 10/05/23 19:14 Infused ONCE ONE Infusion Medical Decision Making Medical Decision Making [facility] Narrative: Patient is a 50-year-old female presents emergency department for evaluation of worsening right lower extremity concerns as per HPI. Patient was evaluated by Dr. Chopra from vascular on 09/28, at that time it was reviewed that she had a duplex lower extremity arterial scan 08/31/2023 and an angiogram 09/15/2023 indicating adequate flow at that time. Her pain was thought to be likely neurogenic in nature secondary to her diabetes as well as chronic back issues, thus she was referred to pain management and recommended 3 month follow-up for noninvasive arterial testing. She had her first appointment with pain management today who referred her to the emergency department to rule out DVT due to her reports of increasing pain redness swelling and discoloration. Differential Diagnosis Differential Diagnoses: The differential diagnosis associated with the presentation includes (Neurovascular compromise, vascular occlusion, PAD, neuropathy) Admission/Observation Consideration of admission/observation: Escalation of care including admission/observation considered (See narrative above and course narrative for further detail) Consult Healthcare Provider Management of the patient was discussed with: Aircraft Delivery Checker (As per course narrative) Lab Data MDM Lab Attestation statement: I reviewed the patient's lab results. CBC reveals a leukocytosis with left shift, normocytic anemia. Overall unremarkable CMP. Hypomagnesemia 1.3, replaced with 2 g IV. 10/05/23 16:34 10/05/23 16:34 Labs: Lab Results 10/05/23 10/05/23 Range/Units 16:34 19:23 WBC 14.6 H (4.8-10.8) X10*3/uL RBC 3.90 L (4.20-5.50) X10*6/uL Hgb 10.9 L (12.0-16.0) g/dl Hct 34.2 L (37.0-47.0) % MCV 87.7 (80.0-98.0) fL MCH 27.9 (27.0-33.0) pg MCHC 31.9 (31.0-35.0) g/dl RDW 14.1 (11.0-16.0) % Plt Count 341 D (160-400) X10*3/uL MPV 10.8 (9.4-12.3) fL Immature Gran % (Auto) 0.4 (0.0-0.4) % Neut % (Auto) 83.3 H (45-73) % Lymph % (Auto) 11.8 L (20-40) % Brooks % (Auto) 3.3 (2-11) % Eos % (Auto) 0.8 (0-4) % Baso % (Auto) 0.4 (0-2) % Lymph # (Auto) 1.7 (1.2-4.9) X10*3/uL Brooks # (Auto) 0.5 (0.1-1.2) X10*3/uL Eos # (Auto) 0.1 (0.0-0.4) X10*3/uL Baso # (Auto) 0.1 (0.0-0.2) X10*3/uL Abs Immat Gran (auto) 0.06 H (0.00-0.03) X10*3/uL Absolute Neuts (auto) 12.2 H (2.0-8.3) x10*3/uL Absolute Nucleated RBC 0.000 (0.0-0.012) X10*3/uL Nucleated RBC % (auto) 0.0 (0.0-0.2) /100WBC PT 11.5 (11.1-13.3) SEC INR 0.9 (0.9-1.1) Sodium 138 (135-145) mmol/L Potassium 4.7 (3.3-5.1) mmol/L Chloride 102 (96-108) mmol/L Carbon Dioxide 26 (22-29) mmol/L Anion Gap 15 (12-20) BUN 12 (9-16) mg/dL Creatinine 1.02 (0.5-1.4) mg/dL Estim Creat Clear Calc 55.2 Estimated GFR 56 POC Glucose 101 (60-115) mg/dL Random Glucose 122 H (60-115) mg/dL Calcium 9.5 (8.4-10.2) mg/dL Magnesium 1.3 L* (1.6-2.6) mg/dL Independent Interpretation I performed an independent interpretation of an: EKG and Ultrasound Interpretation: Rate: 94 Rhythm:? Normal sinus rhythm [place]:? Normal Normal P waves.? Normal MELANI.?? Normal QRS complex.?? ST T wave :??No ST elevation, no ST depression qTC: 460 The study has been interpreted contemporaneously by me. Radiology Impression Discussion of test interpretation with radiology: I have reviewed the radiologist's reading. Radiologist Impression: US/US venous duplex LE RT IMPRESSION: No DVT demonstrated in the right lower extremity. US/US arterial duplex LE RT IMPRESSION: Markedly calcified arterial wing are seen throughout with moderate plaque seen. There is evidence of a hemodynamically significant stenosis in the distal SFA and popliteal arteries. No flow is seen in the midsection of the dorsalis pedis which may be due to heavy calcification. XR/XR foot RT min 3V IMPRESSION: No acute findings. External Record Review External record reviewed: Outpatient record (As per narrative above) Discharge Plan Discharge Clinical Impression: PAD (peripheral artery disease) Patient Disposition: Home, Self-Care 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: Peripheral Artery Disease (ED) Additional 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: As discussed, please call Dr. Lopez office tomorrow morning to schedule a follow- up visit. He may return back to the emergency department any new or worsening symptoms or concerns. Prescriptions: No Action (DME) FreeStyle Bhavesh 2 [place] Misc See Rx 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 .Route Qty: 1 0RF Rx 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: As directed atorvastatin 80 mg tablet 80 mg PO DAILY Qty: 90 2RF nicotine 7 mg/24 hr patch 24 hour 1 patch transdermal Q24H Qty: 14 1RF ropinirole 0.25 mg tablet 0.25 mg PO BID Qty: 60 1RF metformin 1,000 mg tablet 1,000 mg PO BID Qty: 60 1RF (DME) FreeStyle Bhavesh 2 Sensor Kit See Rx 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 .Route Qty: 1 8RF Rx 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: As directed change every 14 days Trulicity 1.5 mg/0.5 mL pen injector 1.5 mg subcut QWEEK Qty: 2 5RF albuterol sulfate [Ventolin HFA] 90 mcg/actuation HFA aerosol inhaler 2 puff inhalation Q4-6H PRN (Reason: shortness of breath or wheezing) Qty: 8.5 0RF lisinopril 5 mg tablet 5 mg PO DAILY Qty: 30 4RF omeprazole 40 mg capsule,delayed release(DR/EC) 40 mg PO DAILY Qty: 90 0RF insulin glargine [Lantus Solostar U-100 Insulin] 100 unit/mL (3 mL) insulin pen 12 unit subcut QPM hydroxyzine HCl 10 mg tablet 10 mg PO BID PRN (Reason: anxiety) (DME) FreeStyle Bhavesh 14 Day Sensor Kit See Rx 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 topical Q2W Qty: 1 Rx 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: As directed (DME) lancets [FreeStyle Lancets] 28 gauge misc See Rx 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 Not Applicable QID Qty: 100 Rx 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: As directed buspirone 10 mg tablet 10 mg PO BID quetiapine 25 mg tablet 25 mg PO BEDTIME (DME) pen needle, diabetic [BD Ultra-Fine Mini Pen Needle] 31 gauge x 3/16 needle See Rx 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 subcut .MEDSUPPLY Qty: 50 Rx 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: As directed 4 times a day insulin lispro [Humalog KwikPen Insulin] 100 unit/mL insulin pen 5 unit subcut TID buprenorphine HCl 2 mg tablet, sublingual 2 mg sublingual DAILY diclofenac sodium [Arthritis Pain (diclofenac)] 1 % gel 2 g topical QID PRN (Reason: pain) Qty: 100 0RF Rx 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: apply to single elbow, wrist or hand; for hand includes palm/fingers/back of hand bupropion HCl 300 mg tablet extended release 24 hr 300 mg PO QAM (DME) blood-glucose meter [FreeStyle Lite Meter] Kit See Rx 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 .Route Qty: 1 0RF Rx 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: As directed checks 4 X/dasy (DME) FreeStyle Lite Strips Strip See Rx 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 .Route Qty: 100 5RF Rx 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: As directed- checks 4 X/day aspirin [Adult Low Dose Aspirin] 81 mg tablet,delayed release (DR/EC) 81 mg PO DAILY buspirone 15 mg tablet 15 mg PO BID Farxiga 5 mg tablet 5 mg PO DAILY Qty: 30 5RF Referrals: Anel Barrera MD [Primary Care Provider] - Marvin Chopra MD [Physician] -
[2023-10-05 16:41] LABS: MANUAL DIFF FLAG NO
[2023-10-05 16:42] LABS: Basophils Absolute Auto 0.1 X10*3/uL (0.0-0.2); Basophils Percent Auto 0.4 % (0-2); Eosinophils Absolute Auto 0.1 X10*3/uL (0.0-0.4); Eosinophils Percent Auto 0.8 % (0-4); Hematocrit 34.2 % (37.0-47.0); Hemoglobin 10.9 g/dl (12.0-16.0); Imm Gran Abs Auto 0.06 X10*3/uL (0.00-0.03); Imm Gran Pct Auto 0.4 % (0.0-0.4); Lymphocytes Absolute Auto 1.7 X10*3/uL (1.2-4.9); Lymphocytes Percent Auto 11.8 % (20-40); Mean Corpuscular HGB Conc 31.9 g/dl (31.0-35.0); Mean Corpuscular Hemoglobin 27.9 pg (27.0-33.0); Mean Corpuscular Volume 87.7 fL (80.0-98.0); Mean Platelet Volume 10.8 fL (9.4-12.3); Monocytes Absolute Auto 0.5 X10*3/uL (0.1-1.2); Monocytes Percent Auto 3.3 % (2-11); Neutrophils Absolute Auto 12.2 x10*3/uL (2.0-8.3); Neutrophils Percent Auto 83.3 % (45-73); Platelet Count 341 X10*3/uL (160-400); Red Cell Distribution Width 14.1 % (11.0-16.0); White Blood Count 14.6 X10*3/uL (4.8-10.8)
[2023-10-05 16:49] LABS: INTERNATIONAL NORM RATIO 0.9 (0.9-1.1); Prothrombin Time 11.5 SEC (11.1-13.3)
[2023-10-05 17:00] LABS: Anion Gap 15 (12-20); Blood Urea Nitrogen 12 mg/dL (9-16); Calcium 9.5 mg/dL (8.4-10.2); Carbon Dioxide 26 mmol/L (22-29); Chloride 102 mmol/L (96-108); Creatinine Clr Calc Pharmacy 55.2; Estimated Glomerular Filt Rate 56; Glucose Random 122 mg/dL (60-115); Magnesium 1.3 mg/dL (1.6-2.6); Potassium 4.7 mmol/L (3.3-5.1); Sodium 138 mmol/L (135-145)
--- NOTE | 2023-10-05 17:14 | ECG_ITS ---
Test Reason : check qtc Blood Pressure : / mmHG Vent. Rate : 094 BPM Atrial Rate : 094 BPM P-R Int : 136 ms QRS Dur : 090 ms QT Int : 368 ms P-R-T Axes : 073 176 064 degrees QTc Int : 460 ms Normal sinus rhythm Left posterior fascicular block Abnormal ECG No significant changes when compared with the previous EKG of 24 april 2005. Referred By: Gwen French Electronically Signed By:RILEY LESLIE
[2023-10-05] MEDS: Magnesium Sulfate/H2O 2 GM/50 ML PIGGYBACK IV (17:51)
[2023-10-05 19:13] VITALS: BP 144/74; PULSE 94; RESP 18; TEMP 36.9; O2SAT 98
[2023-10-05 19:28] LABS: Glucose, Whole Blood 101 mg/dL (60-115)
--- NOTE | 2023-10-05 19:30 | PC.NURSE ---
pt reported to this RN her phone was reading her blood sugar as 64. POC done. 101 according to our glucometer. provider aware
[2023-10-05 20:41] VITALS: BP 135/78; PULSE 93; RESP 18; TEMP 36.8; O2SAT 98
== END 2023-10-05 20:47 | disposition home or self-care (01) ==
PROVIDERS: Physician Assistant Medical; Emergency Provider Emergency Medicine; PCP Internal Medicine
DX: I73.9 Peripheral vascular disease, unspecified (principal); M79.671 Pain in right foot; R60.0 Localized edema; R94.31 Abnormal electrocardiogram [ECG] [EKG]; F17.210 Nicotine dependence, cigarettes, uncomplicated; Z71.6 Tobacco abuse counseling; Z79.899 Other long term (current) drug therapy
CPT/HCPCS: 36415; 73630; 80048; 82947; 83735; 85025; 85610; 93005; 93926; 93971; 96365; 96366; 99284; 99285; J3475

== ENCOUNTER → 2023-10-05 17:14 | Outpatient (BNV) | payer OTHER, SELFPAY | PROVIDERS: Emergency Provider Emergency Medicine; PCP Internal Medicine; Visit Provider Internal Medicine | DX: I82.401 Acute embolism and thrombosis of unspecified deep veins of right lower extremity (principal) | CPT/HCPCS: 93010 ==

== ENCOUNTER 2024-01-01 09:05 | Outpatient (REF) | payer OTHER, SELFPAY ==
[2024-01-01 11:10] LABS: MANUAL DIFF FLAG NO
[2024-01-01 11:26] LABS: Basophils Absolute Auto 0.1 X10*3/uL (0.0-0.2); Basophils Percent Auto 1.1 % (0-2); Eosinophils Absolute Auto 0.2 X10*3/uL (0.0-0.4); Hematocrit 28.7 % (37.0-47.0); Hemoglobin 8.8 g/dl (12.0-16.0); Imm Gran Abs Auto 0.04 X10*3/uL (0.00-0.03); Imm Gran Pct Auto 0.5 % (0.0-0.4); Lymphocytes Absolute Auto 2.4 X10*3/uL (1.2-4.9); Lymphocytes Percent Auto 28.3 % (20-40); Mean Corpuscular HGB Conc 30.7 g/dl (31.0-35.0); Mean Corpuscular Hemoglobin 26.7 pg (27.0-33.0); Mean Platelet Volume 10.7 fL (9.4-12.3); Monocytes Absolute Auto 0.7 X10*3/uL (0.1-1.2); Monocytes Percent Auto 7.9 % (2-11); Neutrophils Percent Auto 60.2 % (45-73); Platelet Count 608 X10*3/uL (160-400); Red Cell Distribution Width 17.5 % (11.0-16.0); White Blood Count 8.3 X10*3/uL (4.8-10.8)
[2024-01-01 11:46] LABS: Anion Gap 13 (12-20); Blood Urea Nitrogen 9 mg/dL (9-16); Calcium 9.1 mg/dL (8.4-10.2); Carbon Dioxide 24 mmol/L (22-29); Chloride 106 mmol/L (96-108); Cholesterol 91 mg/dL (<200); Estimated Glomerular Filt Rate > 60; Glucose Random 104 mg/dL (60-115); HDL Cholesterol 55 mg/dL (>40); LDL Cholesterol Calculated 25 mg/dL (<100); Potassium 4.2 mmol/L (3.3-5.1); Sodium 139 mmol/L (135-145); Triglycerides 56 mg/dL (<150)
[2024-01-01 11:50] LABS: TSH reflex Free T4 1.45 uIU/mL (0.32-4.0)
== END 2024-01-01 09:06 | disposition home or self-care (01) ==
LOC: HO.HMGCLDS 09:05
PROVIDERS: Internal Medicine Endocrinology, Diabetes & Metabolism; PCP Internal Medicine; Visit Provider Internal Medicine
DX: Z00.01 Encounter for general adult medical examination with abnormal findings (principal); R53.83 Other fatigue; R06.02 Shortness of breath; R07.89 Other chest pain; R94.31 Abnormal electrocardiogram [ECG] [EKG]; E11.65 Type 2 diabetes mellitus with hyperglycemia; R79.89 Other specified abnormal findings of blood chemistry; H40.9 Unspecified glaucoma; I73.9 Peripheral vascular disease, unspecified; G62.9 Polyneuropathy, unspecified; E78.5 Hyperlipidemia, unspecified; F41.9 Anxiety disorder, unspecified; F32.A Depression, unspecified; K21.9 Gastro-esophageal reflux disease without esophagitis; F17.200 Nicotine dependence, unspecified, uncomplicated; F19.11 Other psychoactive substance abuse, in remission; G25.81 Restless legs syndrome; J44.9 Chronic obstructive pulmonary disease, unspecified; E11.21 Type 2 diabetes mellitus with diabetic nephropathy
CPT/HCPCS: 36415; 80048; 80061; 84443; 85025

== ENCOUNTER 2024-01-04 08:47 | Outpatient (AMB) | payer OTHER, SELFPAY ==
[2024-01-04 08:56] VITALS: BP 102/52; PULSE 94; O2SAT 97
--- NOTE | 2024-01-04 08:56 | A.OFFPC_ITS ---
Vital Signs 01/04/24 08:56 BMI Reason not done Patient refused/unable BP 102/52 L Blood Pressure Location Rt brachial Position Sitting Pulse 94 Pulse Source Pulse Oximeter Pulse Oximetry (%) 97 Oxygen Delivery Method Room Air Intake Visit Reasons: [facility]/right aka Intake Note: Pt is here today to f/u from rehap for a below Rt knee amputation Allergies No Known Allergies Allergy (Verified 06/28/24 09:01) Medication List - Last Reconciled 01/04/24 by Anel Barrera MD acetaminophen 325 mg PO TID PRN albuterol sulfate 90 mcg/actuation (Ventolin HFA) 2 puffs inhalation Q4-6H PRN ammonium lactate 12% 1 appl topical BID apixaban (Eliquis) 5 mg PO BID aspirin (Adult Low Dose Aspirin) 81 mg PO DAILY atorvastatin 80 mg PO DAILY blood sugar diagnostic (FreeStyle Lite Strips) As directed- checks 4 X/day blood-glucose meter (FreeStyle Lite Meter kit) As directed checks 4 X/dasy buprenorphine HCl 2 mg sublingual DAILY bupropion HCl 300 mg PO QAM buspirone 15 mg PO BID dapagliflozin propanediol (Farxiga) 5 mg PO DAILY diclofenac sodium 1% (Arthritis Pain (diclofenac)) 2 grams topical QID PRN dulaglutide (Trulicity) 1.5 mg (0.5 mL) subcut QWEEK flash glucose scanning reader (RomotiveStyle Bhavesh 2 [place]) As directed flash glucose sensor (FreeStyle Bhavesh 2 Sensor kit) As directed change every 14 days gabapentin 400 mg PO TID hydroxyzine HCl 10 mg PO BID PRN insulin glargine (Lantus Solostar U-100 Insulin) 12 units subcut QPM insulin lispro (Humalog KwikPen (U-100) Insulin) 5 units subcut TID lancets (FreeStyle Lancets) As directed lidocaine 5% (Lidoderm) 1 patch topical DAILY lisinopril 5 mg PO DAILY magnesium 400 mg PO TID metformin 1,000 mg PO BID nicotine 1 patch transdermal Q24H omeprazole 40 mg PO DAILY oxycodone 5 mg PO QID PRN pen needle, diabetic (BD Ultra-Fine Mini Pen Needle) As directed 4 times a day quetiapine 25 mg PO BEDTIME ropinirole 0.25 mg PO BID Tobacco use date assessed: 01/04/24 Dental Screening Dental Screen Date: 01/04/24 Did you have a dental visit in the last 12 months?: Yes Did you have a dental problem in the last 6 months where you did not have access to dental care?: No Was dental information given to patient?: Patient has dentist HPI [facility]/right aka HPI Details 59-year-old female with a history of ty pe 2 diabetes with nephropathy followed by [facility] endocrine clinic, has peripheral vascular disease status post right BKA done by Dr. Lowe 10/25/2023 after acute on chronic limb ischemia. Unfortunately, after experiencing trauma to the stump, it was nonhealing with ischemic skin and fat necrosis and underwent right AKA by Dr. Verdugo on 12/07/2023. She is getting around with a wheelchair, overall doing quite well, going to rehab. She has been wearing compression stockings dinner on the left lower extremity with improvement in the swelling on that side. Denies any claudication symptoms no rest pain or nonhealing wounds in her left foot. [facility] Medical History (Updated 07/02/24 @ 16:54 by Anel Barrera MD) Peripheral vascular disease Anemia Essential hypertension Cigarette smoker motivated to quit Uncontrolled type 2 diabetes mellitus with hyperglycemia Diabetes mellitus with nephropathy Annual visit for general adult medical examination with abnormal findings section wound complications Encounter to establish care Type II diabetes mellitus Diabetes COPD (chronic obstructive pulmonary disease) Surgical History (Updated 07/02/24 @ 17:05 by Anel Barrera MD) History of above-knee amputation of right lower extremity H/O neck surgery History of mandibular surgery H/O foot surgery H/O hernia repair H/O section H/O angioplasty History of hysterectomy History of colonoscopy History of laparoscopic adjustable gastric banding S/P bilateral breast reduction S/P carpal tunnel release Status post cataract extraction Family History Sister Breast cancer Mother Breast cancer Substance use disorder Mental health disorder Brother Substance use disorder Brother Substance use disorder Sister No problems noted. 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 How often do you have a drink containing alcohol?: Never Total Score: 0 STAS-7 AMB Questionnaire STAS-7 Date STAS - 7 assessed: 12/29/22 Source: Developed by Drs. Jun Ceja, Anisa Goode, Sergey Vargas and colleagues, with an educational dakota from [employer]. Review of Systems Const Reports no additional complaints ENT Denies dizziness Card Denies chest pain, Denies chest pain at rest, Denies chest pain with activity, Denies rapid heart rate, Denies pedal edema, Denies edema, Denies leg edema, Denies lightheadedness, Denies palpitations, Denies dyspnea, Denies dyspnea on exertion and Denies orthopnea Resp Denies cough, Denies dyspnea and Denies dyspnea on exertion GI Denies hematochezia and Denies change in stool character Details: Status post hysterectomy secondary to DUB and fibroid, still has 1 ovary and cervix intact, referred to [facility] for her routine Pap and pelvic exam Musc Details: Sees Podiatry, Dr. Sheela Day, q 3 m every 3 months Denies arthralgias, Denies limited range of motion, Denies muscle cramps, Denies muscle weakness, Denies numbness, Denies radiating pain into limb, Denies stiffness and Denies tingling Neuro Denies dizziness, Denies numbness and Denies tingling Psych Details: Followed at [facility]NOTE 3], sees Braeden Prince Details: Followed at [facility] for her diabetes Denies palpitations Fantasma/Lymph Reports no additional complaints Aller/Immun Reports no additional complaints Physical exam (Primary Care) Vital Signs: Last Vital Signs Pulse 94 01/04/24 08:56 BP 102/52 L 01/04/24 08:56 Pulse Ox 97 01/04/24 08:56 Oxygen Delivery Method Room Air 01/04/24 08:56 Tobacco/Smoking Status: Tobacco use Status Tobacco use date assessed 01/04/24 01/04/24 09:16 Patient Tobacco Use Status Former Tobacco user 01/04/24 09:16 Tobacco use type Cigarette 01/04/24 08:56 e-Cigarette/Vaping Use Never Used 01/04/24 08:56 Thrive Assessment: Date of Thrive Assessment Date Thrive assessed 12/29/22 01/04/24 08:56 Const General: cooperative and no acute distress Orientation/consciousness: patient oriented x3 HENMT Head: Yes normocephalic Mouth: oropharynx normal and moist mucous membranes Throat: Yes posterior oropharynx normal Eyes General: appearance normal, both eyes and all related structures Neck Neck: Yes normal visual inspection, Yes full ROM and Yes no lymphadenopathy Chest Breast/axilla inspection: normal inspection of the breasts Breast/axilla palpation: normal palpation of the breasts Resp Effort & Inspection: normal respiratory effort and able to speak in complete sentences Auscultation: clear to auscultation bilaterally, no rhonchi and no wheezes Cardio Rate: regular rate Rhythm: regular rhythm Heart sounds: S1 normal heart sound present and S2 normal heart sound present GI Palpation (GI): Soft to palpation, nontender and no guarding Auscultation: normal bowel sounds General: Yes no CVA tenderness Back/Spine/Pelvis Back: no CVA tenderness and No back tenderness Neuro Other: Right AKA General: patient oriented x3, tone normal, Normal light touch and pain sensation and no focal motor deficits Extrem Other: Right AKA General: Yes full ROM and No edema Left lower extremity: full ROM and no joint enlargement; no edema Psych Appearance: grossly normal and well kempt Mental Status: mental status grossly normal Speech and movement: Normal speech and movement present Affect: normal affect Attitude: cooperative Thought process: Normal thought process present Thought content: Normal thought content present Assessment and Plan Assessment & Plan (1) Diabetes mellitus with nephropathy: Code(s): E11.21 - Type 2 diabetes mellitus with diabetic nephropathy Plan: Continued on Farxiga, Trulicity and metformin, followed by [facility] endocrine clinic (2) Hypomagnesemia: Code(s): E83.42 - Hypomagnesemia Plan: Currently on magnesium supplements, will check serum magnesium level (3) Anemia: Code(s): D64.9 - Anemia, unspecified Plan: Prescription sent for ferrous fumarate 325 mg taken once daily, will repeat another iron profile (4) Peripheral vascular disease: Code(s): I73.9 - Peripheral vascular disease, unspecified Plan: Currently on Xarelto (5) History of above-knee amputation of right lower extremity: Code(s): Z89.611 - Acquired absence of right leg above knee Plan: Currently going to rehab, (6) Essential hypertension: Code(s): I10 - Essential (primary) hypertension Plan: Blood pressure stable and controlled. Continue lisinopril 5 mg daily, strongly encouraged to quit smoking Orders: Orders Magnesium 01/04/24 E11.21 - Type 2 diabetes mellitus with diabetic nephropathy, E83.42 - Hypomagnesemia Hemoglobin A1c 01/04/24 E11.21 - Type 2 diabetes mellitus with diabetic nephropathy, E83.42 - Hypomagnesemia IRON PROFILE 01/04/24 D64.9 - Anemia, unspecified Medications: New ferrous fumarate 325 mg PO DAILY 30 tabs 5RF D64.9 - Anemia, unspecified gabapentin 300 mg PO TID 90 caps 1RF 30 days Coding Level of Care Code Est Pt Level 4 (25932) Complex EM visit Add On G2211 Diagnoses Diabetes mellitus with nephropathy E11.21 Hypomagnesemia E83.42 Anemia D64.9 Peripheral vascular disease I73.9 History of above-knee amputation of right lower extremity Z89.611 Essential hypertension I10
== END 2024-01-04 09:56 | disposition home or self-care (01) ==
PROVIDERS: PCP Internal Medicine; Visit Provider Internal Medicine
DX: E11.21 Type 2 diabetes mellitus with diabetic nephropathy (principal); E83.42 Hypomagnesemia; D64.9 Anemia, unspecified; I73.9 Peripheral vascular disease, unspecified; Z89.611 Acquired absence of right leg above knee; I10 Essential (primary) hypertension
CPT/HCPCS: 99499

== ENCOUNTER 2024-01-04 09:58 | Outpatient (REF) | payer OTHER, SELFPAY ==
[2024-01-04 11:55] LABS: Estimated Average Glucose 143 mg/dL; Hemoglobin A1c % 6.6 % (<6.0)
[2024-01-04 12:57] LABS: Iron 23 mcg/dL (30-160); Magnesium 2.5 mg/dL (1.6-2.6); Percent Iron Saturation 9 % (15-50); Total Iron Binding Capacity 253 mcg/dL (228-428); Unsaturated Iron Binding 230 ug/dL
[2024-01-04 13:16] LABS: TSH reflex Free T4 1.41 uIU/mL (0.32-4.0)
== END 2024-01-04 09:59 | disposition home or self-care (01) ==
LOC: HO.HMGCLDS 09:58
PROVIDERS: PCP Internal Medicine; Visit Provider Internal Medicine
DX: E11.21 Type 2 diabetes mellitus with diabetic nephropathy (principal); E83.42 Hypomagnesemia; D64.9 Anemia, unspecified; R53.83 Other fatigue; R06.02 Shortness of breath; R07.89 Other chest pain; R94.31 Abnormal electrocardiogram [ECG] [EKG]
CPT/HCPCS: 36415; 83036; 83540; 83735; 84443

== ENCOUNTER 2024-01-10 11:10 | Outpatient (AMB) | payer OTHER, SELFPAY ==
[2024-01-10 11:12] VITALS: BP 90/50; PULSE 94; BMI 36.3
--- NOTE | 2024-01-10 11:12 | MHC.OFFVIS ---
Intake Vital Signs 01/10/24 11:12 Height 5 ft 2 in Weight 198 lb 6.656 oz BMI 36.3 BP 90/50 L Blood Pressure Location Lt brachial Position Sitting Pulse 94 Pulse Source Pulse Oximeter Intake Visit Reasons: f/u Type 2 DM-confirmed Intake Note: Patient presents today to follow up on D2MT. Last Diabetic Eye exam: 05/2023 Last Podiatry Visit: 06/2023 Random Glucose:`215 mg/dl HgA1c: 6.6% 01/04/24. Screw Machine Hand Required: No Accompanied by: Self / Same As Patient Allergies No Known Allergies Allergy (Verified 01/10/24 11:19) HPI HPI Comments History of Present Illness Details 58 YO F who is seen in consultation for T2DM at the request of PCP. Initially diagnosed with T2DM in [id number] for gestational DM . Was initially started on treatment with metformin . Current regimen metformin 1000 mg BID Trulcity 1.5 mg Qwkly Lantus 12 units Humalog 5- 8 units TID . Farxiga 5 mg QD Bhavesh download shows she is using the sensor 76% of the time. Average glucose is 172 with variability 35.8%. 54% in target range with 32% hyperglycemia and 11% very hyperglycemic and 3% hypoglycemia. Hypoglycemia is occurring overnight Treats lows with eats peanut butter. does not sugar after to ensure it is rising. Has overnight hypoglycemia Family history of T2DM in grandmother , mother . Has eyes checked yearly, last eye exam, ? retinopathy. Has neuropathy, Does not sees podiatry. Has nephropathy, Not on ANAHY/ARB. UAC [] as measured on []. Has HLD,Not on statin. Denies CAD. Had diabetes education in distant past . S/P AKA in [facility] in 10/2023 [facility] Medical History (Updated 01/04/24 @ 09:57 by Anel Barrera MD) Anemia Phoenix's disease Essential hypertension Cigarette smoker motivated to quit Uncontrolled type 2 diabetes mellitus with hyperglycemia Diabetes mellitus with nephropathy Annual visit for general adult medical examination with abnormal findings section wound complications Encounter to establish care Type II diabetes mellitus Diabetes COPD (chronic obstructive pulmonary disease) Surgical History S/P AKA (above knee amputation) unilateral H/O neck surgery History of mandibular surgery H/O foot surgery H/O hernia repair H/O section H/O angioplasty History of hysterectomy History of colonoscopy History of laparoscopic adjustable gastric banding S/P bilateral breast reduction S/P carpal tunnel release Status post cataract extraction Family History Sister Breast cancer Mother Breast cancer Substance use disorder Mental health disorder Brother Substance use disorder Brother Substance use disorder Sister No problems noted. 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 Absence of acromegalic features. Neck exam reveals nl size thyroid about 15 gms. No thyroid nodules palpable. No carotid bruits present. Lungs CTA. Heart S1 S2, Reg R/R. No M/R/ G. Skin exam reveals absence of vitiligo or acanthosis nigricans. Abdominal exam reveals Soft NT/ND with NA BS. No organomegaly present. Neck Other: . Extrem Other: Visual exam of foot performed. No ulcerations or open lesions. No onchomycosis, no callouses.Pulses 2 + distally Sensation decreased to monofilament exam. Vibratory sensation sensed is decreased t with 128 Hz tuning fork. Right 1st toe is somewhat discolored and tender to palpation Assessment & Plan Assessment & Plan (1) DM2 (diabetes mellitus, type 2): Code(s): E11.9 - Type 2 diabetes mellitus without complications Plan: This is a 58-year-old white female with a history of type 2 diabetes being treated with metformin and basal-bolus insulin with poor glycemic control and known microvascular complications namely neuropathy and microalbuminuria. Plan is decrease Lantus to 8 units. Will D/C Farxiga in light of PAD and amputation At this point, patient can follow up with her primary care provider and returned back to endocrinology sure HbA1c deteriorate (2) Diabetes mellitus with nephropathy: Comment: sees Dr Lashell hancock, yearly Code(s): E11.21 - Type 2 diabetes mellitus with diabetic nephropathy Plan: See above plan Coding Level of Care Code Est Pt Level 4 (67536) Diagnoses DM2 (diabetes mellitus, type 2) E11.9 Diabetes mellitus with nephropathy E11.21
[2024-01-10 11:25] LABS: Glucose, Whole Blood 215 mg/dL (60-115)
== END 2024-01-10 11:51 | disposition home or self-care (01) ==
PROVIDERS: PCP Internal Medicine; Visit Provider Internal Medicine Endocrinology, Diabetes & Metabolism
DX: E11.21 Type 2 diabetes mellitus with diabetic nephropathy (principal)
CPT/HCPCS: 99214

== ENCOUNTER → 2024-01-10 11:10 | Outpatient (BNVA) | payer OTHER, SELFPAY | PROVIDERS: PCP Internal Medicine; Visit Provider Internal Medicine Endocrinology, Diabetes & Metabolism | DX: E11.65 Type 2 diabetes mellitus with hyperglycemia (principal); E11.40 Type 2 diabetes mellitus with diabetic neuropathy, unspecified; E11.21 Type 2 diabetes mellitus with diabetic nephropathy; E78.5 Hyperlipidemia, unspecified; Z86.32 Personal history of gestational diabetes; Z83.3 Family history of diabetes mellitus; Z89.611 Acquired absence of right leg above knee | CPT/HCPCS: 82947; 99212 ==

== ENCOUNTER 2024-02-01 10:52 | Outpatient (AMB) | payer OTHER, SELFPAY ==
[2024-02-01 10:57] VITALS: BP 110/68; PULSE 81; O2SAT 98; BMI 25.2
--- NOTE | 2024-02-01 10:57 | MHC.OFFVIS ---
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/ get [facility] records Allergies No Known Allergies Allergy (Verified 01/10/24 11:19) Medication List - Last Reconciled 02/01/24 by Tomasz Jones MD acetaminophen 325 mg PO TID PRN albuterol sulfate 90 mcg/actuation (Ventolin HFA) 2 puffs inhalation Q4-6H PRN apixaban (Eliquis) 5 mg PO BID aspirin (Adult Low Dose Aspirin) 81 mg PO DAILY atorvastatin 80 mg PO DAILY [Bath strips As directed] [bed rail As directed] [bed wedge As directed] blood sugar diagnostic (FreeStyle Lite Strips) As directed- checks 4 X/day blood-glucose meter (FreeStyle Lite Meter kit) As directed checks 4 X/dasy buprenorphine HCl 2 mg sublingual DAILY bupropion HCl XL 300 mg PO QAM buspirone 15 mg PO BID diclofenac sodium 1% (Arthritis Pain (diclofenac)) 2 grams topical QID PRN dulaglutide (Trulicity) 1.5 mg (0.5 mL) subcut QWEEK ferrous fumarate 325 mg PO DAILY flash glucose scanning reader ([employer]ankStyle Bhavesh 2 [place]) As directed flash glucose sensor (FreeStyle Bhavesh 2 Sensor kit) As directed change every 14 days gabapentin 300 mg PO TID 30 days hydroxyzine HCl 10 mg PO BID PRN insulin glargine (Lantus Solostar U-100 Insulin) 6 units subcut QPM insulin lispro (Humalog KwikPen (U-100) Insulin) 5 units subcut TID lancets (FreeStyle Lancets) As directed lisinopril 5 mg PO DAILY metformin 1,000 mg PO BID omeprazole 40 mg PO DAILY oxycodone 5 mg PO QID PRN pen needle, diabetic (BD Ultra-Fine Mini Pen Needle) As directed 4 times a day quetiapine 25 mg PO BEDTIME [Raised commode As directed] ropinirole 0.25 mg PO BID [Safety bar For bathroom] walker As directed walker As directed HPI Comments Details: Shama Lugo is here for consultation to assess her cardiac status. Multiple cardiovascular risk factors including hypertension, diabetes, dyslipidemia, peripheral arterial disease status post right above-knee amputation. She comes in a wheelchair. Within limits of her activity, does not have any clear-cut complaints like angina or shortness of breath. [facility] Medical History Anemia Karyn's disease Essential hypertension Cigarette smoker motivated to quit Uncontrolled type 2 diabetes mellitus with hyperglycemia Diabetes mellitus with nephropathy Annual visit for general adult medical examination with abnormal findings section wound complications Encounter to establish care Type II diabetes mellitus Diabetes COPD (chronic obstructive pulmonary disease) Surgical History S/P AKA (above knee amputation) unilateral H/O neck surgery History of mandibular surgery H/O foot surgery H/O hernia repair H/O section H/O angioplasty History of hysterectomy History of colonoscopy History of laparoscopic adjustable gastric banding S/P bilateral breast reduction S/P carpal tunnel release Status post cataract extraction Family History Sister Breast cancer Mother Breast cancer Substance use disorder Mental health disorder Brother Substance use disorder Brother Substance use disorder Sister No problems noted. 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 Cognitive needs: Yes Hearing needs: No Vision needs: Yes (Glaucoma and cataracts being treated) Review of Systems Const Denies weakness ENT Denies dizziness Card Denies chest pain, Denies chest pain with activity, Denies syncope, Denies rapid heart rate, Denies pedal edema, Denies edema, Denies leg edema, Denies lightheadedness, Denies palpitations, Denies dyspnea, Denies dyspnea on exertion and Denies orthopnea Resp Denies cough, Denies dyspnea and Denies dyspnea on exertion GI Denies hematochezia and Denies change in stool character Musc Denies abnormal gait, Denies muscle cramps, Denies muscle weakness, Denies numbness, Denies radiating pain into limb and Denies tingling Neuro Denies abnormal gait, Denies dizziness, Denies syncope, Denies numbness, Denies tingling and Denies weakness Endo Denies palpitations Physical Exam Vital Signs: Last Vital Signs Pulse 81 02/01/24 10:57 BP 110/68 02/01/24 10:57 Pulse Ox 98 02/01/24 10:57 Oxygen Delivery Method Room Air 02/01/24 10:57 BMI result Body Mass Index 25.2 Const General: comfortable and no acute distress Orientation/consciousness: patient oriented x3 HEENT Other: Unremarkable Head: Yes normal to inspection Neck Neck: Yes normal visual inspection Chest Chest palpation & inspection: normal inspection of the chest Resp Auscultation: clear to auscultation bilaterally Cardio Palpation: normal PMI Heart sounds: S1 normal heart sound present, S2 normal heart sound present, no gallops, no murmurs and no rubs GI Palpation (GI): Soft to palpation Back/Spine/Pelvis Other: unremarkable Skin General skin exam: no rashes or lesions noted Neuro General: patient oriented x3 Extrem General: Yes normal to inspection Psych Mental Status: mental status grossly normal Office Procedures EKG Details: EKG with sinus rhythm at 81/Min; poor R-wave progression across anterior leads; indeterminate axis; [place] [id number], Complete Assessment & Plan Assessment & Plan (1) PAD (peripheral artery disease): Comment: Code(s): I73.9 - Peripheral vascular disease, unspecified Category: Medical (2) Diabetes mellitus with nephropathy: Code(s): E11.21 - Type 2 diabetes mellitus with diabetic nephropathy Category: Medical (3) Essential hypertension: Code(s): I10 - Essential (primary) hypertension Category: Medical (4) Hyperlipidemia: Code(s): E78.5 - Hyperlipidemia, unspecified Category: Medical Plan Significant vascular risk factors, established peripheral vascular disease. No overt symptoms but she does not really have much of activity at baseline either. We can screen her for coronary disease with an echocardiogram and stress test. She comes in a wheelchair and hence we can do a pharmacological stress test with Lexiscan. Follow-up after the above. Orders: Orders CA lexiscan stress w jennifer Today I20.9 - Angina pectoris, unspecified CA echo transthoracic complete Today I25.10 - Atherosclerotic heart disease of [place] coronary artery without angina pectoris NM cardiolite stress test Today R07.2 - Precordial pain Coding Level of Care Code New Pt Level 4 (17325) Diagnoses PAD (peripheral artery disease) I73.9 Diabetes mellitus with nephropathy E11.21 Essential hypertension I10 Hyperlipidemia E78.5 CPT Codes EKG - CPT: [id number], Complete ([id number])
== END 2024-02-01 15:54 | disposition home or self-care (01) ==
PROVIDERS: PCP Internal Medicine; Visit Provider Internal Medicine
DX: I73.9 Peripheral vascular disease, unspecified (principal); E11.21 Type 2 diabetes mellitus with diabetic nephropathy; I10 Essential (primary) hypertension; E78.5 Hyperlipidemia, unspecified
CPT/HCPCS: 93010; 99214

== ENCOUNTER → 2024-02-01 10:52 | Outpatient (BNVA) | payer OTHER, SELFPAY | PROVIDERS: PCP Internal Medicine; Visit Provider Internal Medicine | DX: I10 Essential (primary) hypertension (principal); E11.21 Type 2 diabetes mellitus with diabetic nephropathy; E11.51 Type 2 diabetes mellitus with diabetic peripheral angiopathy without gangrene; E78.5 Hyperlipidemia, unspecified | CPT/HCPCS: 93005; 99212 ==

== ENCOUNTER → 2024-03-10 09:18 | Outpatient (REF) | payer OTHER, SELFPAY ==
--- NOTE | ~2024-03-10 | NM_ITS ---
Myocardial perfusion study Indication: Precordial chest pain to evaluate for myocardial ischemia Technique: The patient was brought in for a Lexiscan perfusion study on 03/10/2024. Patient performed low-level exercise and was injected 0.4 mg of Lexiscan intravenously. Within a minute of injection, 25 mCi of sestamibi was given intravenously. Images were obtained using the SPECT gamma camera interlaced with the gating device. Images were obtained in supine position. Resting perfusion study was performed on 03/13/2024. Patient was administered 25 mCi of sestamibi intravenously at rest. Images were then obtained in supine position. Images obtained with and without CT attenuation. Total DLP 97 mGy-cm Images were processed with the software and compared side to side in short axis, horizontal long axis and vertical long axis views. Findings: The stress study was performed with arms down position and the rest study performed with arms up position The stress perfusion study showed both attenuated as well as non attenuated images show mildly reduced uptake in the inferior and inferoseptal wall of the LV myocardium. Remainder of the LV myocardium is normally perfused. The gated study shows normal LV systolic function with calculated LVEF of 45%. LV cavity is normal in size. The gated study shows normal systolic wall thickening and contraction of segments. Resting study shows both attenuated as well as non attenuated images show improved uptake in the inferior inferoseptal wall of the LV myocardium. Gating at rest reveals normal systolic wall motion with ejection fraction at 42%. The findings are consistent with reversible defect in the inferior inferoseptal wall which is suggestive of ischemia. Although there is difference in attenuation due to the arm position. . NM/NM cardiolite stress test Impression: 1. Myocardial perfusion imaging study shows inferior and inferoseptal ischemia 2. Gated LVEF is 45% although visually it appears to be higher, correlate with echocardiogram 3. Transient ischemic dilatation not present EKG is nondiagnostic for ischemia
--- NOTE | 2024-03-10 09:22 | CA_ITS ---
Transthoracic Echocardiogram Patient (Last, First, Middle): Shama Reyes Ann Gender: Female Date of : 1965 Age: 58 Procedure Date: 03/10/2024 Procedure Type: Transthoracic Echocardiogram Location: OP Height: 157.48 cm Weight: 62.6 kg BSA: 1.63 m2 Heart Rate: 89 bpm BP: 114 / 70 mmHg Dimension Specification Inspector: SB Referring MD: Tomasz Jones MD Symptoms: I25.10 - Atherosclerotic heart disease of [place] coronary artery without... Study Quality: Adequate ECG Rhythm: Sinus Conclusions: - The left ventricular systolic function is normal. The calculated ejection fraction is 56% by biplane method. - There is mild calcification of the aortic valve. - There is moderate mitral annular calcification. Findings Left Ventricle Normal left ventricular cavity size. The left ventricular systolic function is normal. The calculated ejection fraction is 56% by biplane method. There is no evidence of regional wall motion abnormalities. Evidence suggests grade I (mild) diastolic dysfunction. There is mild septal asymmetric hypertrophy. Right Ventricle Normal right ventricular cavity size and systolic function. Atria Both atria are normal in size. Aortic Valve There is a normal trileaflet aortic valve. There is mild calcification of the aortic valve. There is no aortic valve stenosis. There is no aortic valve regurgitation. Mitral Valve There is moderate mitral annular calcification. There is no mitral valve regurgitation. There is no mitral valve stenosis. Pulmonic Valve The pulmonic valve is likely normal. Tricuspid Valve There is no tricuspid valve regurgitation. Tricuspid regurgitation envelope is inadequate for calculation of right ventricular systolic pressure. Great Vessels The asc aorta is normal in size. Venous The inferior vena cava is normal in size and collapses greater than 50% with inspiration. Pericardium/Pleural There is no evidence of pericardial effusion. Prior Study Comparison No prior study available for comparison. Measurements 2D Linear Measurements IVSd: 1.22 0.6-0.9/0.6-1.0 cm LVIDd: 4.19 3.9-5.3/4.2-5.9 cm LVIDd Index: 2.57 2.4-3.2/2.2-3.1 cm/m2 LVIDs: 2.32 2.0-3.6 cm LVPWd: 1.05 0.7-1.1 cm LA Diam: 2.80 2.7-3.8/3.0-4.0 cm LAIDs Index: 1.72 1.5-2.3 cm/m2 LV Mass: 203.87 67-162/88-224 g LV Mass Index: 125.07 43-95/49-115 g/m2 LVOT Diam: 2.20 3.0+(-)1.3 cm 2D Systolic Function EF 4C: 49.50 >55% EF 2C: 60.70 >55% EF BiP: 55.80 >55% Mitral Valve MV VTI: 0.23 MV Pk Kulwant: 1.00 MV Mn Kulwant: 0.66 MV Pk Grad: 4.00 MV Mn Grad: 2.00 MV Pk E: 0.84 MV PK A: 1.00 MV Decel Time: 238.00 E/A: 0.80 E'Lateral: 4.13 E'Medial: 4.90 E/E' Med: 17.10 E/E' Lat: 20.20 PHT: 70.00 MVA PHT: 3.14 MVA Continuity: 2.45 Decel [place]: 3.51 Aortic Valve AoV Pk Kulwant: 1.33 AoV Pk Grad: 7.00 NED: 2.55 LVOT LVOT Pk Kulwant: 0.93 LVOT Mn Kulwant: 0.60 LVOT VTI: 0.15 LVOT Pk Grad: 3.00 LVOT Mn Grad: 2.00 LVOT Diam: 2.20 LVOT Area: 3.80 Diastolic Function MV Pk E: 0.84 MV Pk A: 1.00 E/A: 0.80 E'Medial: 4.90 E/E' Med: 17.10 E' Laterial: 4.13 E/E' Lat: 20.20 Right Ventricle TAPSE (mm): 16.50 TVS' Kulwant: 11.60 Tricuspid Valve RA Press: 3.00 Great Vessels Aorta Sinus of Valsalva: 2.70 2.0-3.5 cm Ao Asc: 3.40 2.1-3.4 cm Pulmonary Veins Pulm Vein S/D 2.20 Pulmonary Valve PV Pk Kulwant: 1.22 Peak PV Grad: 6.00 Updated in Other Vendor System with Status of Final Tomasz Jones MD electronically signed on 03/11/2024 12:35:08 PM with status of Final
--- NOTE | 2024-03-10 09:22 | CA_ITS ---
Acquisition Time: 2024-03-10 10:01:58 Total Exercise Time: 00:02:15 Test Indications: PRECORDIAL PAIN Medications: Protocol: CHRISTIANO Max HR: 096 BPM 59% of Pred: 162 BPM Max BP: 120/058 mmHG Max Work Load: 1.0 METS Pharmacological stress test with Lexiscan injection while sitting and kicking her lerg, without anginal symptoms, without arrhythmias, with normotensive resposne to injection, with nondiagnoisitic EKGs. Nuclear images pending. Test reviewed with Dr. Jones. Referred By: Tomasz Jones Overread By: Carli Casanova
== END ==
LOC: HO.CARD 09:18
PROVIDERS: PCP Internal Medicine; Visit Provider Internal Medicine
DX: R07.2 Precordial pain (principal); I25.119 Atherosclerotic heart disease of native coronary artery with unspecified angina pectoris
CPT/HCPCS: 78452; 93017; 93306; A9500; J0280; J2785

== ENCOUNTER → 2024-03-10 09:22 | Outpatient (BNV) | payer OTHER, SELFPAY | PROVIDERS: PCP Internal Medicine; Visit Provider Nurse Practitioner | DX: R07.2 Precordial pain (principal) | CPT/HCPCS: 78452; 93016; 93018; 93350 ==

== ENCOUNTER 2024-03-17 09:46 | Outpatient (AMB) | payer OTHER, SELFPAY ==
--- NOTE | 2024-03-17 09:50 | A.OFFVIS_ITS ---
Vital Signs 03/17/24 09:58 BMI Reason not done Patient refused/unable BP 110/58 L Blood Pressure Location Lt brachial Position Sitting Pulse 89 Pulse Source Pulse Oximeter Intake Visit Reasons: Type 2 DM/lvm Intake Note: Patient present today to follow up on Type 2 Diabetes Mellitus. Patient receives DME supplies through: Pharmacy, has been out for 1 month. Requesting to be switched to Dexcom G7 for better readings. Last Diabetic Eye exam: May 11, 2023 Last Podiatry Visit: Right leg amputated 11/2023. Random Glucose: 111 mg/dl HgA1C: 6.6% 01/04/[address] [employer] [address] Required: No Accompanied by: Self / Same As Patient Allergies No Known Allergies Allergy (Verified 03/17/24 10:00) Medication List - Last Reconciled 03/17/24 by Selin Carson PA-C acetaminophen 325 mg PO TID PRN albuterol sulfate 90 mcg/actuation (Ventolin HFA) 2 puffs inhalation Q4-6H PRN apixaban (Eliquis) 5 mg PO BID aspirin (Adult Low Dose Aspirin) 81 mg PO DAILY atorvastatin 80 mg PO DAILY [Bath strips As directed] [bed rail As directed] [bed wedge As directed] blood sugar diagnostic (FreeStyle Lite Strips) As directed- checks 4 X/day blood-glucose meter (FreeStyle Lite Meter kit) As directed checks 4 X/dasy buprenorphine HCl 2 mg sublingual DAILY bupropion HCl XL 300 mg PO QAM buspirone 15 mg PO BID diclofenac sodium 1% (Arthritis Pain (diclofenac)) 2 grams topical QID PRN dulaglutide (Trulicity) 1.5 mg (0.5 mL) subcut QWEEK ferrous fumarate 325 mg PO DAILY flash glucose scanning reader (FreeStyle Bhavesh 2 [place]) As directed flash glucose sensor (FreeStyle Bhavesh 2 Sensor kit) As directed change every 14 days hydroxyzine HCl 10 mg PO BID PRN insulin glargine (Lantus Solostar U-100 Insulin) 6 units subcut QPM insulin lispro (Humalog KwikPen (U-100) Insulin) 5 units subcut TID lancets (FreeStyle Lancets) As directed lisinopril 5 mg PO DAILY metformin 1,000 mg PO BID omeprazole 40 mg PO DAILY pen needle, diabetic (BD Ultra-Fine Mini Pen Needle) As directed 4 times a day quetiapine 25 mg PO BEDTIME [Raised commode As directed] ropinirole 0.25 mg PO BID [Safety bar For bathroom] walker As directed walker As directed HPI HPI Type 2 DM/lvm: Details: This is a 58-year-old white female with a history of type 2 diabetes being treated with metformin and basal-bolus insulin with poor glycemic control and known microvascular complications namely neuropathy and microalbuminuria. At last visit D/C Farxiga in light of PAD and right above knee amputation in November. Her last A1c was 6.6 in December. She states that she thinks it was so good because she was at the hospital for her amputation and then a rehab facility where everything was very closely monitored. She is currently on Trulicity 1.5 mg, Lantus 8 units, Humalog sliding scale, metformin 1000 mg twice a day. She is supposed to be on a freestyle Bhavesh but states that she went to get the sensor and it required a prior auth. She ran into issues with getting this from the pharmacy so her grandson gave her his Dexcom 7 and she states that she actually likes using this more than the freestyle Bhavesh. She has only been wear ing the sensor for 2 days. She states that her blood sugars very and she has not really monitor them for the last month. She realized that she did not have any backup testing supplies and states that she did not go pick it up from the pharmacy right away when it was ready. She states that she has been busy with doctor's appointments, physical therapy and therapy. She is adjusting without her right lower leg. She states that she feels safe at home and has all of the necessary equipment. She is on lisinopril 5 mg daily. Blood pressure today in the office is 100/58. She controls are cholesterol atorvastatin 80 mg. 03/[address] [facility] ([facility]) for u/s left lower leg. She saw nephrology earlier this week and states she is stable. She thinks she would benefit from more diabetic education. [facility] Medical History Anemia Karyn's disease Essential hypertension Cigarette smoker motivated to quit Uncontrolled type 2 diabetes mellitus with hyperglycemia Diabetes mellitus with nephropathy Annual visit for general adult medical examination with abnormal findings section wound complications Encounter to establish care Type II diabetes mellitus Diabetes COPD (chronic obstructive pulmonary disease) Surgical History S/P AKA (above knee amputation) unilateral H/O neck surgery History of mandibular surgery H/O foot surgery H/O hernia repair H/O section H/O angioplasty History of hysterectomy History of colonoscopy History of laparoscopic adjustable gastric banding S/P bilateral breast reduction S/P carpal tunnel release Status post cataract extraction Family History Sister Breast cancer Mother Breast cancer Substance use disorder Mental health disorder Brother Substance use disorder Brother Substance use disorder Sister No problems noted. 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 Cognitive needs: Yes Hearing needs: No Vision needs: Yes (Glaucoma and cataracts being treated) Physical Exam Vital Signs: Last Vital Signs Pulse 89 03/17/24 09:58 BP 110/58 L 03/17/24 09:58 Const Orientation/consciousness: patient oriented x3 HEENT Ears: hearing grossly normal bilaterally Neck Thyroid: Thyroid normal Lymphatic: no lymphadenopathy noted Resp Auscultation: clear to auscultation bilaterally Cardio Rate: regular rate Rhythm: regular rhythm Heart sounds: S1 normal heart sound present and S2 normal heart sound present Skin General skin exam: no rashes or lesions noted Neuro General: patient oriented x3 Results Reviewed Results Reviewed: Laboratory Tests 11/24/22 01/01/24 01/04/24 Unknown 09:25 10:12 Sodium 139 Potassium 4.2 Chloride 106 Carbon Dioxide 24 Anion Gap 13 BUN 9 Creatinine 0.78 Estimated GFR > 60 Glucose (Clinic) Random Glucose 104 Hemoglobin A1c % 6.6 H Calcium 9.1 Magnesium 2.5 AST 24 ALT 28 Triglycerides 56 Cholesterol 91 LDL Cholesterol, Calc 25 HDL Cholesterol 55 TSH 1.41 01/10/24 11:21 Sodium Potassium Chloride Carbon Dioxide Anion Gap BUN Creatinine Estimated GFR Glucose (Clinic) 215 H Random Glucose Hemoglobin A1c % Calcium Magnesium AST ALT Triglycerides Cholesterol LDL Cholesterol, Calc HDL Cholesterol TSH Assessment & Plan Assessment & Plan (1) Diabetes mellitus with nephropathy: Code(s): E11.21 - Type 2 diabetes mellitus with diabetic nephropathy Category: Medical Plan: Up-to-date with Nephrology. Last A1c was 6.6. She has not been monitoring her blood sugars except for the last 2 days. Samples provided in the office of the Dexcom G7. I have sent sensors to the pharmacy. She will let me know if there is any issues with getting this. She would like diabetic Education and I agree that she would benefit from this. She is going to follow-up in 1-2 weeks for Education and then with myself in 1 month for medication review. She will do labs prior to this appointment. She will follow up sooner if needed. Signs and symptoms of hyper and hypoglycemia were reviewed. (2) Hyperlipidemia: Code(s): E78.5 - Hyperlipidemia, unspecified Category: Medical Qualifiers: Hyperlipidemia type: mixed hyperlipidemia Qualified Code(s): E78.2 - Mixed hyperlipidemia Plan: Continue atorvastatin. (3) S/P AKA (above knee amputation) unilateral: Comment: 12/07/[address] Verdugo Code(s): Z89.619 - Acquired absence of unspecified leg above knee Category: Surgical Plan: Discussed the importance of controlling blood sugars. Has regular follow-up with vascular surgery. Seeing vascular surgery next week. Plan Patient understands and agrees with the plan. Orders: Orders Hemoglobin A1c Today E11.21 - Type 2 diabetes mellitus with diabetic nephropathy, E78.5 - Hyperlipidemia, unspecified, Z89.619 - Acquired absence of unspecified leg above knee Lipid Panel Today E11.21 - Type 2 diabetes mellitus with diabetic nephropathy, E78.5 - Hyperlipidemia, unspecified, Z89.619 - Acquired absence of unspecified leg above knee Comprehensive [place]. Panel Fast Today E11.21 - Type 2 diabetes mellitus with diabetic nephropathy, E78.5 - Hyperlipidemia, unspecified, Z89.619 - Acquired absence of unspecified leg above knee Medications: New blood-glucose sensor (Dexcom G7 Sensor device) Use daily As directed to monitor glucose 4 11RF E11.21 - Type 2 diabetes mellitus with diabetic nephropathy, E78.5 - Hyperlipidemia, unspecified, Z89.619 - Acquired absence of unspecified leg above knee Coding Level of Care Code Est Pt Level 4 (60810) Complex EM visit Add On G2211 Diagnoses Diabetes mellitus with nephropathy E11.21 Mixed hyperlipidemia E78.2 Hyperlipidemia type: mixed hyperlipidemia S/P AKA (above knee amputation) unilateral Z89.619
[2024-03-17 09:58] VITALS: BP 110/58; PULSE 89
[2024-03-17 10:14] LABS: Glucose, Whole Blood 111 mg/dL (60-115)
== END 2024-03-17 10:34 | disposition home or self-care (01) ==
PROVIDERS: PCP Internal Medicine; Visit Provider Physician Assistant
DX: E11.21 Type 2 diabetes mellitus with diabetic nephropathy (principal); E78.2 Mixed hyperlipidemia; Z89.619 Acquired absence of unspecified leg above knee
CPT/HCPCS: 99214; G2211

== ENCOUNTER → 2024-03-17 09:46 | Outpatient (BNVA) | payer OTHER, SELFPAY | PROVIDERS: PCP Internal Medicine; Visit Provider Physician Assistant | DX: E11.21 Type 2 diabetes mellitus with diabetic nephropathy (principal); E78.2 Mixed hyperlipidemia; Z89.619 Acquired absence of unspecified leg above knee | CPT/HCPCS: 82947; 99212 ==

== ENCOUNTER 2024-03-29 08:59 | Outpatient (AMB) | payer OTHER, SELFPAY ==
--- NOTE | 2024-03-29 09:12 | MHC.AMDMED ---
Intake Intake Visit Reasons: T2DM/LVM Allergies No Known Allergies Allergy (Verified 03/17/24 10:00) HPI Comprehensive Diabetes Asmnt Most Recent Diabetes Results: Microalb/Creat Ratio 223.9 ug/mg cr 04/21/22 Cholesterol 91 mg/dL (<200) 01/01/24 HDL Cholesterol 55 mg/dL (>40) 01/01/24 Triglycerides 56 mg/dL (<150) 01/01/24 Creatinine 0.78 mg/dL (0.5-1.4) 01/01/24 Blood Urea Nitrogen 9 mg/dL (9-16) 01/01/24 Sodium 139 mmol/L (135-145) 01/01/24 Potassium 4.2 mmol/L (3.3-5.1) 01/01/24 Chloride 106 mmol/L (96-108) 01/01/24 Carbon Dioxide 24 mmol/L (22-29) 01/01/24 Calcium 9.1 mg/dL (8.4-10.2) 01/01/24 AST 24 U/L (5-31) 11/24/22 ALT 28 U/L (0-31) 11/24/22 Total Protein 7.2 g/dL (6.5-8.0) 11/24/22 Albumin 4.1 g/dL (3.5-5.0) 11/24/22 [facility] Medical History Anemia [place]'s disease Essential hypertension Cigarette smoker motivated to quit Uncontrolled type 2 diabetes mellitus with hyperglycemia Diabetes mellitus with nephropathy Annual visit for general adult medical examination with abnormal findings section wound complications Encounter to establish care Type II diabetes mellitus Diabetes COPD (chronic obstructive pulmonary disease) Surgical History S/P AKA (above knee amputation) unilateral H/O neck surgery History of mandibular surgery H/O foot surgery H/O hernia repair H/O section H/O angioplasty History of hysterectomy History of colonoscopy History of laparoscopic adjustable gastric banding S/P bilateral breast reduction S/P carpal tunnel release Status post cataract extraction Family History Sister Breast cancer Mother Breast cancer Substance use disorder Mental health disorder Brother Substance use disorder Brother Substance use disorder Sister No problems noted. 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 The patient met all learning objectives and was able to verbalize understanding and provide teach back of education topics discussed . The patient was provided with the opportunity to ask questions and all questions were answered. Patient Assessment Assess patient education level/literacy/barriers, Pt has above the knee amputation of left leg Patient questions/concerns patient's last A1c 6.6%, patient reports she believes that the low A1c was due to her being in the hospital and in rehab. Now that she is home and has access to more food she is concerned that her A1c is going to increase. Patient is using Dexcom G7 at this time, however we could set up Dexcom clarity because patient does not remember Dexcom log in information. Patient will find log in information at home and set up clarity jose angel. Patient reports she uses Lantus 10 units Humalog 5-8 units as a correction discussed with patient changing insulin plan to carb counting and moving Humalog to 15 minutes before meals Patient is interested in Diabetes Education classes, will contact other people who have expressed interest to set up group class What is Diabetes? Pathophysiology How the body produces and uses insulin Identify type of DM Risk factors Signs of Diabetes Brief overview of Diabetes Management Monitoring blood sugar Following a meal plan Regular exercise Maintaining a healthy weight Taking medication as needed Members of the care team (PCP, RN, MA, RD, CDE, chandelier maker) Blood glucose monitoring When/how often to test Target blood sugar ranges Introduction to Nutrition Importance of healthy diet in managing DM Diet is personalized to individual preference Review patient?s regular diet/food preferences Who prepares meals/does food shopping/ Dining out?/ Barriers? How diet effects glucose Eating 3 balanced meals a day with small, healthy snacks between meals Review food groups Carbohydrates: What is a carbohydrate/Which food/food groups are considered carbohydrates Effect of carbohydrates on blood glucose Portion sizes Reading food labels Basic carb counting (if applicable per nursing assessment) Plate method Meal planning Recommendations: Follow plate method, consistent carbs and read nutritional labels. Smart Goal: Patient will download Dexcom clarity and boluscalc before next visit Educational Materials: The patient was provided with the following written educational materials: Planning Healthy Meals Handout Patient Response to instructions: Comprehension of 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: Fair Readiness to make changes: Contemplation How confident they feel about making changes: Positive Portions of this note were created using voice recognition software, please excuse any words or phrases that may have been misinterpreted. Patient 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: Patient will follow-up with Diabetes Education nurse in 2 weeks for carbohydrate counting instruction Coding Level of Care Code Est Pt Level 1 (62476) Diagnoses Diabetes mellitus with nephropathy E11.21
== END 2024-03-29 10:02 | disposition home or self-care (01) ==
PROVIDERS: PCP Internal Medicine; Visit Provider Registered Nurse Diabetes Educator
DX: E11.21 Type 2 diabetes mellitus with diabetic nephropathy (principal)

== ENCOUNTER → 2024-03-29 08:59 | Outpatient (BNVA) | payer OTHER, SELFPAY | PROVIDERS: PCP Internal Medicine; Visit Provider Registered Nurse Diabetes Educator | DX: E11.21 Type 2 diabetes mellitus with diabetic nephropathy (principal) | CPT/HCPCS: 99211 ==

== ENCOUNTER 2024-04-12 08:50 | Outpatient (AMB) | payer OTHER, SELFPAY ==
--- NOTE | 2024-04-12 09:34 | A.OFFVIS_ITS ---
Intake Intake Visit Reasons: 60 Min Allergies No Known Allergies Allergy (Verified 03/17/24 10:00) HPI Comprehensive Diabetes Asmnt Most Recent Diabetes Results: Microalb/Creat Ratio 223.9 ug/mg cr 04/21/22 Cholesterol 91 mg/dL (<200) 01/01/24 HDL Cholesterol 55 mg/dL (>40) 01/01/24 Triglycerides 56 mg/dL (<150) 01/01/24 Creatinine 0.78 mg/dL (0.5-1.4) 01/01/24 Blood Urea Nitrogen 9 mg/dL (9-16) 01/01/24 Sodium 139 mmol/L (135-145) 01/01/24 Potassium 4.2 mmol/L (3.3-5.1) 01/01/24 Chloride 106 mmol/L (96-108) 01/01/24 Carbon Dioxide 24 mmol/L (22-29) 01/01/24 Calcium 9.1 mg/dL (8.4-10.2) 01/01/24 AST 24 U/L (5-31) 11/24/22 ALT 28 U/L (0-31) 11/24/22 Total Protein 7.2 g/dL (6.5-8.0) 11/24/22 Albumin 4.1 g/dL (3.5-5.0) 11/24/22 [facility] Medical History Anemia Pittston's disease Essential hypertension Cigarette smoker motivated to quit Uncontrolled type 2 diabetes mellitus with hyperglycemia Diabetes mellitus with nephropathy Annual visit for general adult medical examination with abnormal findings section wound complications Encounter to establish care Type II diabetes mellitus Diabetes COPD (chronic obstructive pulmonary disease) Surgical History S/P AKA (above knee amputation) unilateral H/O neck surgery History of mandibular surgery H/O foot surgery H/O hernia repair H/O section H/O angioplasty History of hysterectomy History of colonoscopy History of laparoscopic adjustable gastric banding S/P bilateral breast reduction S/P carpal tunnel release Status post cataract extraction Family History Sister Breast cancer Mother Breast cancer Substance use disorder Mental health disorder Brother Substance use disorder Brother Substance use disorder Sister No problems noted. 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 Reviewed the basic principles of carbohydrate counting.? Insulin to carb ratio, and insulin sensitivity factor calculated based on rule of 450 for insulin to carb ratio, and rule of 1500 for insulin sensitivity factor. Instructed patient on the importance of accurate calculation of the amount of carbs per meal for optimal glucose control Reviewed how to calculate mealtime bolus with insulin to carb ratio Reviewed how to calculate correction dose with insulin sensitivity factor Patient's TDD estimate 12 units Insulin to Carbohydrate ratio: 1:38 Correction factor: 1:125 Corrects to 100 mg/dL Downloaded and setup Boluscalc jose angel on Pt's tablet Patient has Mom's Meals delivered, meals have carbohydrate count already calculated on menu Patient given healthy plate handout, for resource for carbohydrate counting Encourage patient to fill out food logs, estimating carbohydrates at meals, noting glucose number prior to meal, and how many units of insulin taken prior to meals Pt able to calculated needed insulin based on estimated carbohydrate content Instructed patient that there may need to be adjustment to insulin to carb ratio and sensitivity factor based on blood glucose trends. Patient will follow-up for group class Portions of this note were created using voice recognition software, please excuse any words or phrases that may have been misinterpreted. Coding Level of Care Code Est Pt Level 1 (52754) Diagnoses Diabetes mellitus with nephropathy E11.21
== END 2024-04-12 09:53 | disposition home or self-care (01) ==
PROVIDERS: PCP Internal Medicine; Visit Provider Registered Nurse Diabetes Educator
DX: E11.21 Type 2 diabetes mellitus with diabetic nephropathy (principal)

== ENCOUNTER → 2024-04-12 08:50 | Outpatient (BNVA) | payer OTHER, SELFPAY | PROVIDERS: PCP Internal Medicine; Visit Provider Registered Nurse Diabetes Educator | DX: E11.21 Type 2 diabetes mellitus with diabetic nephropathy (principal); Z79.4 Long term (current) use of insulin; Z71.89 Other specified counseling | CPT/HCPCS: 99211 ==

== ENCOUNTER 2024-04-28 10:07 | Outpatient (AMB) | payer OTHER, SELFPAY ==
[2024-04-28 10:08] VITALS: BP 106/64; PULSE 85
--- NOTE | 2024-04-28 10:08 | A.OFFVIS_ITS ---
Vital Signs 04/28/24 10:08 Height 5 ft 2 in BMI Reason not done Patient refused/unable BP 106/64 Blood Pressure Location Rt brachial Position Sitting Pulse 85 Pulse Source Pulse Oximeter Intake Visit Reasons: T2DM/CONFIRMED Intake Note: Patient presents today for a follow-up on Type 2 Diabetes Mellitus: Last diabetic eye exam was on: DUE Last Podiatry Exam was on: DUE Most recent HbA1c: DUE Random Glucose- mg/dL, Today Marketing Production Specialist Required: No Accompanied by: Self / Same As Patient Allergies No Known Allergies Allergy (Verified 04/28/24 10:08) Medication List - Last Reconciled 04/28/24 by Selin Carson PA-C acetaminophen 325 mg PO TID PRN albuterol sulfate 90 mcg/actuation (Ventolin HFA) 2 puffs inhalation Q4-6H PRN apixaban (Eliquis) 5 mg PO BID aspirin (Adult Low Dose Aspirin) 81 mg PO DAILY atorvastatin 80 mg PO DAILY [Bath strips As directed] [bed rail As directed] [bed wedge As directed] blood sugar diagnostic (FreeStyle Lite Strips) As directed- checks 4 X/day blood-glucose meter (FreeStyle Lite Meter kit) As directed checks 4 X/dasy blood-glucose sensor ([employer] G7 Sensor device) Use daily As directed to monitor glucose buprenorphine HCl 2 mg sublingual DAILY bupropion HCl XL 300 mg PO QAM buspirone 15 mg PO BID diclofenac sodium 1% (Arthritis Pain (diclofenac)) 2 grams topical QID PRN dulaglutide (Trulicity) 1.5 mg (0.5 mL) subcut QWEEK ferrous fumarate 325 mg PO DAILY flash glucose scanning reader ([employer] Bhavesh 2 Frierson) As directed flash glucose sensor (FreeStyle Bhavesh 2 Sensor kit) As directed change every 14 days hydroxyzine HCl 10 mg PO BID PRN insulin lispro (Humalog KwikPen (U-100) Insulin) 5 units subcut TID lancets (FreeStyle Lancets) As directed lisinopril 5 mg PO DAILY metformin 1,000 mg PO BID 90 days omeprazole 40 mg PO DAILY pen needle, diabetic (BD Ultra-Fine Mini Pen Needle) As directed 4 times a day quetiapine 25 mg PO BEDTIME [Raised commode As directed] ropinirole 0.25 mg PO BID [Safety bar For bathroom] walker As directed walker As directed HPI HPI T2DM/CONFIRMED: Details: This is a 59-year-old female with a history of type 2 diabetes being treated with metformin and basal-bolus insulin and known microvascular complications namely neuropathy and microalbuminuria. Endo: DM-Her A1c today in the office is 6.6. Since our last visit she was reduced on the lantus to 6 units at night but is still getting lows. She states every night she has to eat a snack and she does not like having to do this. She is rarely using humalog. she is compliant with trulicity 1.5 mg weekly. she is still on the metformin 1000 mg twice a day. She is compliant with her Dexcom. -D/C Farxiga in light of PAD and right above knee amputation in November. CGM-average glucose 127, variability 43, GMI 6.4%. 2% very high, 9% high, 86% in range, 2% low, 1% very low -most of the lows are happening overnight. The highs are around 12-3 pm. -corrects her lows with glucose tabs or cookies. -she is trying to exercise to help lower her blood sugars. Her prosthetic will be in next week. Starting group classes for her dm. She is on lisinopril 5 mg daily. Blood pressure today in the office is 106/64. She controls are cholesterol atorvastatin 80 mg. CV: Denies any chest pain or shortness of breath. Blood pressures have been well controlled here at different doctor's offices. She states that she is well controlled with the lisinopril. She is compliant with the Eliquis and atorvastatin. Follows with Dr. Lowe ([facility]). Nephro: She saw nephrology earlier this week and states she is stable. [facility] Medical History Anemia Karyn's disease Essential hypertension Cigarette smoker motivated to quit Uncontrolled type 2 diabetes mellitus with hyperglycemia Diabetes mellitus with nephropathy Annual visit for general adult medical examination with abnormal findings section wound complications Encounter to establish care Type II diabetes mellitus Diabetes COPD (chronic obstructive pulmonary disease) Surgical History S/P AKA (above knee amputation) unilateral H/O neck surgery History of mandibular surgery H/O foot surgery H/O hernia repair H/O section H/O angioplasty History of hysterectomy History of colonoscopy History of laparoscopic adjustable gastric banding S/P bilateral breast reduction S/P carpal tunnel release Status post cataract extraction Family History Sister Breast cancer Mother Breast cancer Substance use disorder Mental health disorder Brother Substance use disorder Brother Substance use disorder Sister No problems noted. 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 Cognitive needs: Yes Hearing needs: No Vision needs: Yes (Glaucoma and cataracts being treated) Physical Exam Vital Signs: Last Vital Signs Pulse 85 04/28/24 10:08 BP 106/64 04/28/24 10:08 Const Orientation/consciousness: patient oriented x3 HEENT Ears: hearing grossly normal bilaterally Neck Neck: Yes no lymphadenopathy Thyroid: Thyroid normal Carotids: no bruits Lymphatic: no lymphadenopathy noted Resp Auscultation: clear to auscultation bilaterally Cardio Rate: regular rate Rhythm: regular rhythm Heart sounds: S1 normal heart sound present and S2 normal heart sound present Peripheral pulses: dorsalis pedis present Skin General skin exam: no rashes or lesions noted Neuro General: patient oriented x3, gait normal and no focal motor deficits Extrem Other: Monofilament sensation intact bilaterally. Vibratory sensation intact bilaterally. Skin intact. General: Yes normal to inspection Results AMB Hemoglobin A1c AMB Hemoglobin A1c 6.6 % Last Edit by DEMETRIA Linder on 04/28/24 10:24 Results Reviewed Results Reviewed: Laboratory Tests 01/04/24 04/28/24 10:12 10:15 Glucose (Clinic) 143 H Estimat Average Glucose 143 Hemoglobin A1c % 6.6 H Assessment & Plan Assessment & Plan (1) Diabetes mellitus with nephropathy: Code(s): E11.21 - Type 2 diabetes mellitus with diabetic nephropathy Category: Medical Plan: Will discontinue the Lantus. She will use Humalog only if needed and continue to monitor her glucose readings closely. I have increased the Trulicity. She is going to continue with diabetic Education. Nutritional pamphlet was handed to her again today. She has glucose tabs at home if needed and denies needing refills. (2) Essential hypertension: Code(s): I10 - Essential (primary) hypertension Category: Medical Plan: Blood pressure WNL. Continue current regimen. Orders: Orders AMB Hemoglobin A1c Today E11.9 - Type 2 diabetes mellitus without complications Medications: New dulaglutide (Trulicity) 3 mg (0.5 mL) subcut QWEEK 2 mL 5RF Discontinued dulaglutide (Trulicity) Discontinued Reason: Doctor's Order 1.5 mg (0.5 mL) subcut QWEEK 2 mL 5RF Coding Level of Care Code Est Pt Level 4 (66568) Complex EM visit Add On G2211 Diagnoses Diabetes mellitus with nephropathy E11.21 Essential hypertension I10
[2024-04-28 10:19] LABS: Glucose, Whole Blood 143 mg/dL (60-115)
== END 2024-04-28 10:38 | disposition home or self-care (01) ==
PROVIDERS: PCP Internal Medicine; Visit Provider Physician Assistant
DX: E11.21 Type 2 diabetes mellitus with diabetic nephropathy (principal); I10 Essential (primary) hypertension
CPT/HCPCS: 99214; G2211

== ENCOUNTER → 2024-04-28 10:07 | Outpatient (BNVA) | payer OTHER, SELFPAY | PROVIDERS: PCP Internal Medicine; Visit Provider Physician Assistant | DX: E11.21 Type 2 diabetes mellitus with diabetic nephropathy (principal); I10 Essential (primary) hypertension; Z79.4 Long term (current) use of insulin; Z79.85 Long-term (current) use of injectable non-insulin antidiabetic drugs | CPT/HCPCS: 82947; 83036; 99212 ==

== ENCOUNTER 2024-05-08 13:29 | Outpatient (AMB) | payer OTHER, SELFPAY ==
[2024-05-08 13:56] VITALS: BP 120/72; PULSE 75
--- NOTE | 2024-05-08 13:56 | A.OFFVIS_ITS ---
Vital Signs 05/08/24 13:56 Height 5 ft 2 in BP 120/72 Blood Pressure Location Lt brachial Position Sitting Pulse 75 Pulse Source Pulse Oximeter Intake Visit Reasons: Reschedule results Food Analyst Required: No Allergies No Known Allergies Allergy (Verified 05/08/24 13:58) Medication List - Last Reconciled 05/08/24 by HIMA Palacios acetaminophen 325 mg PO TID PRN albuterol sulfate 90 mcg/actuation (Ventolin HFA) 2 puffs inhalation Q4-6H PRN apixaban (Eliquis) 5 mg PO BID aspirin (Adult Low Dose Aspirin) 81 mg PO DAILY atorvastatin 80 mg PO DAILY [Bath strips As directed] [bed rail As directed] [bed wedge As directed] blood sugar diagnostic (FreeStyle Lite Strips) As directed- checks 4 X/day blood-glucose meter (FreeStyle Lite Meter kit) As directed checks 4 X/dasy blood-glucose sensor (CrowdChat G7 Sensor device) Use daily As directed to monitor glucose buprenorphine HCl 2 mg sublingual DAILY bupropion HCl XL 300 mg PO QAM buspirone 15 mg PO BID diclofenac sodium 1% (Arthritis Pain (diclofenac)) 2 grams topical QID PRN dulaglutide (Trulicity) 3 mg (0.5 mL) subcut QWEEK ferrous fumarate 325 mg PO DAILY flash glucose scanning reader ([employer]ley TravelStyle Bhavesh 2 [place]) As directed flash glucose sensor (FreeStyle Bhavesh 2 Sensor kit) As directed change every 14 days hydroxyzine HCl 10 mg PO BID PRN insulin lispro (Humalog KwikPen (U-100) Insulin) 5 units subcut TID lancets (FreeStyle Lancets) As directed lisinopril 5 mg PO DAILY metformin 1,000 mg PO BID 90 days omeprazole 40 mg PO DAILY pen needle, diabetic (BD Ultra-Fine Mini Pen Needle) As directed 4 times a day quetiapine 25 mg PO BEDTIME [Raised commode As directed] ropinirole 0.25 mg PO BID [Safety bar For bathroom] walker As directed walker As directed HPI HPI Reschedule results: Details: Sue is a 59-year-old female with past medical history of Karyn's disease, hypertension, hyperlipidemia, diabetes, smoking, peripheral artery disease status post right AKA, COPD who was recently seen in consultation to evaluate her cardiac status. She underwent an echocardiogram and stress test and now presents for follow-up. Today she reports that she has been doing well since her last visit in January. She has no chest discomfort at rest or with activity. She denies concerning shortness of breath. She says she will feel short of breath at times but relates it to her asthma. No PND, orthopnea or edema of her left leg. No palpitations, lightheadedness, presyncope, syncope. She is currently in a wheelchair. Takes meds as directed. No bleeding issues reported. [facility] Medical History Anemia [place]'s disease Essential hypertension Cigarette smoker motivated to quit Uncontrolled type 2 diabetes mellitus with hyperglycemia Diabetes mellitus with nephropathy Annual visit for general adult medical examination with abnormal findings section wound complications Encounter to establish care Type II diabetes mellitus Diabetes COPD (chronic obstructive pulmonary disease) Surgical History S/P AKA (above knee amputation) unilateral H/O neck surgery History of mandibular surgery H/O foot surgery H/O hernia repair H/O section H/O angioplasty History of hysterectomy History of colonoscopy History of laparoscopic adjustable gastric banding S/P bilateral breast reduction S/P carpal tunnel release Status post cataract extraction Family History Sister Breast cancer Mother Breast cancer Substance use disorder Mental health disorder Brother Substance use disorder Brother Substance use disorder Sister No problems noted. 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 Cognitive needs: Yes Hearing needs: No Vision needs: Yes (Glaucoma and cataracts being treated) Review of Systems Const All systems reviewed & are unremarkable except as noted in HPI and below ENT Denies dizziness Card Denies chest pain, Denies chest pain at rest, Denies chest pain with activity, Denies rapid heart rate, Denies pedal edema, Denies edema, Denies leg edema, Denies lightheadedness, Denies palpitations, Denies dyspnea, Denies dyspnea on exertion and Denies orthopnea Resp Denies cough, Denies dyspnea and Denies dyspnea on exertion GI Denies hematochezia and Denies change in stool character Musc Details: wheelchair - right AKA Denies limited range of motion, Denies muscle cramps, Denies muscle weakness, Denies numbness, Denies radiating pain into limb, Denies stiffness and Denies tingling Neuro Denies dizziness, Denies numbness and Denies tingling Endo Denies palpitations Physical Exam Vital Signs: Last Vital Signs Pulse 75 05/08/24 13:56 BP 120/72 05/08/24 13:56 Const General: cooperative, healthy appearing, comfortable and no acute distress Orientation/consciousness: patient oriented x3 Neck Neck: Yes normal visual inspection Resp Effort & Inspection: normal respiratory effort Auscultation: clear to auscultation bilaterally, no rales, no rhonchi and no wheezes Cardio Jugular venous distension: no JVD Rate: regular rate Rhythm: regular rhythm Heart sounds: S1 normal heart sound present, S2 normal heart sound present, no murmurs and no rubs Neuro General: patient oriented x3 Extrem Other: right AKA General: No no pedal edema Psych Appearance: grossly normal Mental Status: mental status grossly normal Speech and movement: Normal speech and movement present Assessment & Plan Assessment & Plan (1) Abnormal nuclear stress test: Code(s): R94.39 - Abnormal result of other cardiovascular function study Category: Medical Plan: Patient is undergoing cardiac evaluation due to multiple cardiac risk factors including hypertension, hyperlipidemia, diabetes, smoking, peripheral artery disease. She denies any anginal sounding symptoms. EKG done last visit showing sinus rhythm with low-voltage QRS, rate 81. She had an echocardiogram 03/10/2024 showing EF 56%, mild calcification of the aortic valve, moderate mitral annular calcification. A nuclear stress test done on 03/10/2024 shows inferior and inferior septal ischemia, EF 45% although visually appears higher. Test results reviewed with her in detail. In the absence of symptoms will further evaluate with CTA of the coronary arteries. BMP ordered. Signs and symptoms of angina reviewed. Emergency care if ever needed. Continue aspirin and high-dose ator vastatin. Cardiology follow-up 2-3 months, sooner if needed. (2) Essential hypertension: Code(s): I10 - Essential (primary) hypertension Category: Medical Plan: Well controlled at this time. Continue lisinopril 5 mg daily. (3) Hyperlipidemia: Code(s): E78.5 - Hyperlipidemia, unspecified Category: Medical Qualifiers: Hyperlipidemia type: mixed hyperlipidemia Qualified Code(s): E78.2 - Mixed hyperlipidemia Plan: [place] LDL goal less than 70 in patient with diabetes, PAD and possible CAD. Labs done 01/01/2024 showing LDL 25. Continue atorvastatin 80 mg daily. Plan Time spent on chart review, documentation, interview and assessment Orders: Orders CT Cardiac Coronary Angio Today E78.2 - Mixed hyperlipidemia, I10 - Essential (primary) hypertension, I73.9 - Peripheral vascular disease, unspecified, R94.39 - Abnormal result of other cardiovascular function study Basic Metabolic Panel Today R94.39 - Abnormal result of other cardiovascular function study Coding Level of Care Code Est Pt Level 3 (89678) Diagnoses Abnormal nuclear stress test R94.39 Essential hypertension I10 Mixed hyperlipidemia E78.2 Hyperlipidemia type: mixed hyperlipidemia Time Spent (min) 24
== END 2024-05-08 14:41 | disposition home or self-care (01) ==
PROVIDERS: PCP Internal Medicine; Visit Provider Nurse Practitioner Family
DX: R94.39 Abnormal result of other cardiovascular function study (principal); I10 Essential (primary) hypertension; E78.2 Mixed hyperlipidemia
CPT/HCPCS: 99213

== ENCOUNTER → 2024-05-08 13:29 | Outpatient (BNVA) | payer OTHER, SELFPAY | PROVIDERS: PCP Internal Medicine; Visit Provider Nurse Practitioner Family | DX: R94.39 Abnormal result of other cardiovascular function study (principal); I10 Essential (primary) hypertension; E78.2 Mixed hyperlipidemia | CPT/HCPCS: 99212 ==

== ENCOUNTER 2024-05-10 09:52 | Outpatient (AMB) | payer OTHER, SELFPAY ==
--- NOTE | 2024-05-10 12:34 | A.OFFVIS_ITS ---
Intake Intake Visit Reasons: Type 2 DM Allergies No Known Allergies Allergy (Verified 05/08/24 13:58) HPI Comprehensive Diabetes Asmnt Most Recent Diabetes Results: No Data to Display [facility] Medical History Anemia Karyn's disease Essential hypertension Cigarette smoker motivated to quit Uncontrolled type 2 diabetes mellitus with hyperglycemia Diabetes mellitus with nephropathy Annual visit for general adult medical examination with abnormal findings section wound complications Encounter to establish care Type II diabetes mellitus Diabetes COPD (chronic obstructive pulmonary disease) Surgical History S/P AKA (above knee amputation) unilateral H/O neck surgery History of mandibular surgery H/O foot surgery H/O hernia repair H/O section H/O angioplasty History of hysterectomy History of colonoscopy History of laparoscopic adjustable gastric banding S/P bilateral breast reduction S/P carpal tunnel release Status post cataract extraction Family History Sister Breast cancer Mother Breast cancer Substance use disorder Mental health disorder Brother Substance use disorder Brother Substance use disorder Sister No problems noted. 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 Your Journey with Diabetes ? Pre and Post class survey Your Journey with Diabetes ? 1=I needs full instruction?? 2= I Need Some Review? 3= I Understand Topics?? Before Class After Class What is diabetes? Can you define in your own words Blood glucose within the target range The potential long-term complications of diabetes Reduce the risk of long-term complications by keeping your blood glucose on target C Knowing your ABCs Identifying Support Network Did not Return Survey Patient was education on the prevention of and monitoring of potential complications of diabetes. Topics covered in today?s session included: . Definition of types of Diabetes ? Natural course of diabetes. ? Detecting and prevention of chronic complications. ? Knowing ABC's of diabetes management and reducing risk for cardiovascular complications. ? Reviewed support network and services. Patient was supplied with ABC and Screening checklist Patient was receptive to information provided and participated in the group discussion. Patient asked?appropriate questions and demonstrated good understanding of the topics discussed.? Patient found goals realistic and agreed to DM plan.? Over the course of DSMT program patient will identify the following goals relating to the ADCES 7 Healthy Behavior Worksheet: Patient was educated on diabetes care and skills according to the Standards of Care established by the [place] [employer] Portions of this note were created using voice recognition software, please excuse any words or phrases that may have been misinterpreted. Coding Level of Care Code Est Pt Level 1 (40056) Diagnoses Diabetes mellitus with nephropathy E11.21
== END 2024-05-10 12:57 | disposition home or self-care (01) ==
PROVIDERS: PCP Internal Medicine; Visit Provider Registered Nurse Diabetes Educator
DX: E11.21 Type 2 diabetes mellitus with diabetic nephropathy (principal)

== ENCOUNTER → 2024-05-10 09:52 | Outpatient (BNVA) | payer OTHER, SELFPAY | PROVIDERS: PCP Internal Medicine; Visit Provider Registered Nurse Diabetes Educator | DX: E11.21 Type 2 diabetes mellitus with diabetic nephropathy (principal) | CPT/HCPCS: 99211 ==

== ENCOUNTER 2024-06-01 06:08 | Outpatient (REF) | payer OTHER, SELFPAY ==
[2024-06-01 07:26] LABS: Alanine Aminotransferase 17 U/L (0-31); Albumin Level 3.7 g/dL (3.5-5.0); Alkaline Phosphatase 103 U/L (39-117); Anion Gap 18 (12-20); Aspartate Amino Transferase 21 U/L (5-31); Bilirubin Total 0.3 mg/dL (0.0-1.0); Blood Urea Nitrogen 12 mg/dL (9-16); Calcium 9.3 mg/dL (8.4-10.2); Carbon Dioxide 25 mmol/L (22-29); Chloride 102 mmol/L (96-108); Cholesterol 116 mg/dL (<200); Estimated Glomerular Filt Rate > 60; Glucose Fasting 138 mg/dL (60-99); Glucose Random 138 mg/dL (60-115); HDL Cholesterol 57 mg/dL (>40); LDL Cholesterol Calculated 29 mg/dL (<100); Potassium 4.5 mmol/L (3.3-5.1); Sodium 140 mmol/L (135-145); Total Protein 6.8 g/dL (6.5-8.0); Triglycerides 154 mg/dL (<150)
[2024-06-01 07:27] LABS: Estimated Average Glucose 137 mg/dL; Hemoglobin A1c % 6.4 % (<6.0)
== END 2024-06-01 06:09 | disposition home or self-care (01) ==
LOC: HO.LAB 06:08
PROVIDERS: Physician Assistant; PCP Internal Medicine; Visit Provider Nurse Practitioner Family
DX: R94.39 Abnormal result of other cardiovascular function study (principal); E78.5 Hyperlipidemia, unspecified; E11.21 Type 2 diabetes mellitus with diabetic nephropathy; Z89.619 Acquired absence of unspecified leg above knee
CPT/HCPCS: 36415; 80048; 80053; 80061; 83036

== ENCOUNTER 2024-06-28 08:19 | Outpatient (AMB) | payer OTHER, SELFPAY ==
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
[2024-06-28 08:30] VITALS: BP 120/60; PULSE 99; O2SAT 98; BMI 21.0
== END 2024-06-28 09:56 | disposition home or self-care (01) ==
PROVIDERS: PCP Internal Medicine; Visit Provider Internal Medicine
DX: Z00.00 Encounter for general adult medical examination without abnormal findings (principal); E11.21 Type 2 diabetes mellitus with diabetic nephropathy; Z89.619 Acquired absence of unspecified leg above knee; J44.9 Chronic obstructive pulmonary disease, unspecified; I73.9 Peripheral vascular disease, unspecified; E78.2 Mixed hyperlipidemia; F41.9 Anxiety disorder, unspecified; F32.A Depression, unspecified; G25.81 Restless legs syndrome; I10 Essential (primary) hypertension; H40.9 Unspecified glaucoma; K21.9 Gastro-esophageal reflux disease without esophagitis

== ENCOUNTER → 2024-06-28 08:19 | Outpatient (BNVA) | payer OTHER, SELFPAY | PROVIDERS: PCP Internal Medicine; Visit Provider Internal Medicine ==

== ENCOUNTER 2024-06-28 09:42 | Outpatient (REF) | payer OTHER, SELFPAY ==
[2024-06-28 13:10] LABS: MANUAL DIFF FLAG NO
[2024-06-28 13:26] LABS: Basophils Absolute Auto 0.1 X10*3/uL (0.0-0.2); Basophils Percent Auto 0.7 % (0-2); Eosinophils Absolute Auto 0.2 X10*3/uL (0.0-0.4); Eosinophils Percent Auto 1.6 % (0-4); Hematocrit 31.7 % (37.0-47.0); Imm Gran Abs Auto 0.05 X10*3/uL (0.00-0.03); Imm Gran Pct Auto 0.4 % (0.0-0.4); Lymphocytes Absolute Auto 2.8 X10*3/uL (1.2-4.9); Lymphocytes Percent Auto 23.7 % (20-40); Mean Corpuscular HGB Conc 31.5 g/dl (31.0-35.0); Mean Corpuscular Hemoglobin 28.7 pg (27.0-33.0); Mean Corpuscular Volume 91.1 fL (80.0-98.0); Mean Platelet Volume 11.4 fL (9.4-12.3); Monocytes Absolute Auto 0.5 X10*3/uL (0.1-1.2); Monocytes Percent Auto 4.2 % (2-11); Neutrophils Absolute Auto 8.1 x10*3/uL (2.0-8.3); Neutrophils Percent Auto 69.4 % (45-73); Platelet Count 403 X10*3/uL (160-400); Red Blood Count 3.48 X10*6/uL (4.20-5.50); Red Cell Distribution Width 16.1 % (11.0-16.0); White Blood Count 11.7 X10*3/uL (4.8-10.8)
[2024-06-28 14:56] LABS: Iron 27 mcg/dL (30-160); Percent Iron Saturation 12 % (15-50); Total Iron Binding Capacity 220 mcg/dL (228-428); Unsaturated Iron Binding 193 ug/dL
== END 2024-06-28 09:43 | disposition home or self-care (01) ==
LOC: HO.HMGCLDS 09:42
PROVIDERS: PCP Internal Medicine; Visit Provider Internal Medicine
DX: Z00.01 Encounter for general adult medical examination with abnormal findings (principal); D64.9 Anemia, unspecified; E11.21 Type 2 diabetes mellitus with diabetic nephropathy; E11.42 Type 2 diabetes mellitus with diabetic polyneuropathy; E78.2 Mixed hyperlipidemia; F41.9 Anxiety disorder, unspecified; F32.A Depression, unspecified; J44.9 Chronic obstructive pulmonary disease, unspecified; I10 Essential (primary) hypertension; H40.9 Unspecified glaucoma; K21.9 Gastro-esophageal reflux disease without esophagitis; I73.9 Peripheral vascular disease, unspecified; Z89.619 Acquired absence of unspecified leg above knee; Z12.4 Encounter for screening for malignant neoplasm of cervix; Z71.89 Other specified counseling; Z79.4 Long term (current) use of insulin
CPT/HCPCS: 36415; 83540; 85025; 96127; 99497

== ENCOUNTER 2024-07-07 13:56 | Outpatient (AMB) | payer OTHER, SELFPAY ==
[2024-07-07 14:02] VITALS: BP 138/60; PULSE 66
--- NOTE | 2024-07-07 14:02 | MHC.OFFVIS ---
Vital Signs 07/07/24 14:02 Height 5 ft 2 in BP 138/60 Blood Pressure Location Rt brachial Position Sitting Pulse 66 Pulse Source Pulse Oximeter Intake Visit Reasons: T2DM/LVM Intake Note: Patient presents today for DMT follow up visit. Last Diabetic Eye exam: 05/11/2024 Last Podiatry Visit: 06/2024 Random Glucose: 70 mg/dl HgA1c: 6.4% 06/01/24 Heating And Cooling Technician Required: No Accompanied by: Self / Same As Patient Allergies No Known Allergies Allergy (Verified 07/07/24 14:10) Medication List - Last Reconciled 07/07/24 by Selin Carson PA-C acetaminophen 325 mg PO TID PRN albuterol sulfate 90 mcg/actuation (Ventolin HFA) 2 puffs inhalation Q4-6H PRN aspirin (Adult Low Dose Aspirin) 81 mg PO DAILY atorvastatin 80 mg PO DAILY [Bath strips As directed] [bed rail As directed] [bed wedge As directed] blood sugar diagnostic (FreeStyle Lite Strips) As directed- checks 4 X/day blood-glucose meter (FreeStyle Lite Meter kit) As directed checks 4 X/dasy blood-glucose sensor ([employer] G7 Sensor device) Use daily As directed to monitor glucose buprenorphine HCl 2 mg sublingual DAILY bupropion HCl XL 300 mg PO QAM buspirone 15 mg PO BID diclofenac sodium 1% (Arthritis Pain (diclofenac)) 2 grams topical QID PRN dulaglutide (Trulicity) 3 mg (0.5 mL) subcut QWEEK ferrous fumarate 325 mg PO DAILY flash glucose scanning reader (FreeStyle Bhavesh 2 [place]) As directed flash glucose sensor (FreeStyle Bhavesh 2 Sensor kit) As directed change every 14 days glucose (Dex4 Glucose) 16 grams (4 x 4 gram) PO Q15M PRN hydroxyzine HCl 10 mg PO BID PRN lancets (FreeStyle Lancets) As directed lisinopril 5 mg PO DAILY metformin 1,000 mg PO BID 90 days omeprazole 40 mg PO DAILY pen needle, diabetic (BD Ultra-Fine Mini Pen Needle) As directed 4 times a day quetiapine 25 mg PO BEDTIME [Raised commode As directed] rivaroxaban (Xarelto) mg PO ropinirole 0.25 mg PO BID [Safety bar For bathroom] walker As directed walker As directed walker As directed, please prescribe walker with seat HPI HPI T2DM/LVM: Details: This is a 59-year-old female with a history of type 2 diabetes presenting today for a follow up Endo: DM-Her A1c was 6.4. she is compliant with trulicity 1.5 mg weekly. she is still on the metformin 1000 mg twice a day. She is compliant with her Dexcom. She states she is eating very healthy and her daughter has her on a strict diabetic diet. -D/C Farxiga in light of PAD and right above knee amputation in November. CGM- 4% very high, 24% high, 75% in range, 1% low, 1% very low -most of the lows are happening around 12-3 pm. She is using a new prosthetic right leg and has been up and walking around a lot more. She does get some lows but mostly during the day. She states she has been busy with children's schedules and forgetting to eat and then increased exercise. -corrects her lows with glucose tabs or cookies. CV: She is on lisinopril 5 mg daily. Blood pressure today in the office is 138/60. She controls are cholesterol atorvastatin 80 mg. She is compliant with the Eliquis and atorvastatin. Follows with Dr. Lowe ([facility]). Nephro: Follows closely with Nephrology [facility] Medical History (Updated 07/02/24 @ 16:54 by Anel Barrera MD) Peripheral vascular disease Anemia Essential hypertension Cigarette smoker motivated to quit Uncontrolled type 2 diabetes mellitus with hyperglycemia Diabetes mellitus with nephropathy Annual visit for general adult medical examination with abnormal findings section wound complications Encounter to establish care Type II diabetes mellitus Diabetes COPD (chronic obstructive pulmonary disease) Surgical History (Updated 07/02/24 @ 17:05 by Anel Barrera MD) History of above-knee amputation of right lower extremity H/O neck surgery History of mandibular surgery H/O foot surgery H/O hernia repair H/O section H/O angioplasty History of hysterectomy History of colonoscopy History of laparoscopic adjustable gastric banding S/P bilateral breast reduction S/P carpal tunnel release Status post cataract extraction Family History Sister Breast cancer Mother Breast cancer Substance use disorder Mental health disorder Brother Substance use disorder Brother Substance use disorder Sister No problems noted. 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 Cognitive needs: Yes Hearing needs: No Vision needs: Yes (Glaucoma and cataracts being treated) Physical Exam Vital Signs: Last Vital Signs Pulse 66 07/07/24 14:02 BP 138/60 07/07/24 14:02 Const Orientation/consciousness: patient oriented x3 HEENT Ears: hearing grossly normal bilaterally Neck Neck: Yes no lymphadenopathy Thyroid: Thyroid normal Lymphatic: no lymphadenopathy noted Resp Auscultation: clear to auscultation bilaterally Cardio Rate: regular rate Rhythm: regular rhythm Heart sounds: S1 normal heart sound present and S2 normal heart sound present Skin General skin exam: no rashes or lesions noted Neuro General: patient oriented x3, gait normal and no focal motor deficits Extrem General: Yes normal to inspection Office Procedures Glucose Monitoring Details Details: see hpi [id number] - Glucose monitoring, continuous-physician I&R Procedure code (CPT) selection complete Results Reviewed Results Reviewed: Laboratory Tests 04/21/22 04/28/24 06/01/24 08:45 10:22 06:20 Sodium 140 Potassium 4.5 Chloride 102 Carbon Dioxide 25 Anion Gap 18 BUN 12 Creatinine 0.89 Estimated GFR > 60 Random Glucose 138 H Fasting Glucose 138 H Estimat Average Glucose 137 Hgb A1c (Clinic) 6.6 H Hemoglobin A1c % 6.4 H AST 21 ALT 17 Triglycerides 154 H Cholesterol 116 LDL Cholesterol, Calc 29 HDL Cholesterol 57 Urine Creatinine 112.95 Urine Microalbumin 253.0 Microalb/Creat Ratio 223.9 Assessment & Plan Assessment & Plan (1) Diabetes mellitus with nephropathy: Code(s): E11.21 - Type 2 diabetes mellitus with diabetic nephropathy Category: Medical Plan: We will decrease the metformin to 500 mg bid continue trulicty 3 mg weekly she will let me know if glucoses go up. will follow up in 3 months. sooner prn (2) Essential hypertension: Code(s): I10 - Essential (primary) hypertension Category: Medical Plan: bp wnl. continue current plan (3) Hyperlipidemia: Code(s): E78.5 - Hyperlipidemia, unspecified Category: Medical Qualifiers: Hyperlipidemia type: mixed hyperlipidemia Qualified Code(s): E78.2 - Mixed hyperlipidemia Plan: lipids controlled with statin Medications: New glucose (Dex4 Glucose) until symptoms of low blood sugar are controlled 16 grams (4 x 4 gram) PO Q15M PRN 100 tabs 0RF hypoglycemia metformin 500 mg PO BID 180 tabs 3RF Discontinued metformin Discontinued Reason: Doctor's Order 1,000 mg PO BID 90 days 180 tabs 3RF E11.9 - Type 2 diabetes mellitus without complications Coding Level of Care Code Est Pt Level 4 (14404) Diagnoses Diabetes mellitus with nephropathy E11.21 Essential hypertension I10 Mixed hyperlipidemia E78.2 Hyperlipidemia type: mixed hyperlipidemia CPT Codes Details - CPT: 23962 - Glucose monitoring, continuous-physician I&R ([id number])
[2024-07-07 14:14] LABS: Glucose, Whole Blood 70 mg/dL (60-115)
== END 2024-07-07 14:29 | disposition home or self-care (01) ==
PROVIDERS: PCP Internal Medicine; Visit Provider Physician Assistant
DX: E11.21 Type 2 diabetes mellitus with diabetic nephropathy (principal); I10 Essential (primary) hypertension; E78.2 Mixed hyperlipidemia

== ENCOUNTER → 2024-07-07 13:56 | Outpatient (BNVA) | payer OTHER, SELFPAY | PROVIDERS: PCP Internal Medicine; Visit Provider Physician Assistant | DX: E11.21 Type 2 diabetes mellitus with diabetic nephropathy (principal); E78.2 Mixed hyperlipidemia; I10 Essential (primary) hypertension | CPT/HCPCS: 82947; 99212 ==

== ENCOUNTER 2024-07-14 | Outpatient (REF) | payer OTHER, SELFPAY | END 2024-07-14 00:01 | disposition home or self-care (01) | LOC: CF | PROVIDERS: PCP Physician Assistant; Visit Provider Nurse Practitioner Family | DX: I10 Essential (primary) hypertension (principal); I73.9 Peripheral vascular disease, unspecified; R94.39 Abnormal result of other cardiovascular function study; E78.2 Mixed hyperlipidemia; G10 Huntington's disease; F17.210 Nicotine dependence, cigarettes, uncomplicated | CPT/HCPCS: 99212 ==

== ENCOUNTER 2024-07-14 08:10 | Outpatient (AMB) | payer OTHER, SELFPAY ==
[2024-07-14 08:23] VITALS: BP 90/50; PULSE 83
--- NOTE | 2024-07-14 08:23 | MHC.OFFVIS ---
Vital Signs 07/14/24 08:23 Height 5 ft 2 in BMI Reason not done Patient refused/unable BP 90/50 L Blood Pressure Location Lt brachial Position Sitting Pulse 83 Pulse Source Pulse Oximeter Intake Visit Reasons: f/u pt request Intake Note: F/U pt was unable to get CT discuss other alternatives. Manager Cosmetics Required: No Accompanied by: Self / Same As Patient Allergies No Known Allergies Allergy (Verified 07/07/24 14:10) Medication List - Last Reconciled 07/14/24 by HIMA Palacios acetaminophen 325 mg PO TID PRN albuterol sulfate 90 mcg/actuation (Ventolin HFA) 2 puffs inhalation Q4-6H PRN aspirin (Adult Low Dose Aspirin) 81 mg PO DAILY atorvastatin 80 mg PO DAILY [Bath strips As directed] [bed rail As directed] [bed wedge As directed] blood sugar diagnostic (FreeStyle Lite Strips) As directed- checks 4 X/day blood-glucose meter (FreeStyle Lite Meter kit) As directed checks 4 X/dasy blood-glucose sensor ([employer] G7 Sensor device) Use daily As directed to monitor glucose buprenorphine HCl 2 mg sublingual DAILY bupropion HCl XL 300 mg PO QAM buspirone 15 mg PO BID diclofenac sodium 1% (Arthritis Pain (diclofenac)) 2 grams topical QID PRN dulaglutide (Trulicity) 3 mg (0.5 mL) subcut QWEEK ferrous fumarate 325 mg PO DAILY flash glucose scanning reader (FreeStyle Bhavesh 2 [place]) As directed flash glucose sensor (FreeStyle Bhavesh 2 Sensor kit) As directed change every 14 days glucose (Dex4 Glucose) 16 grams (4 x 4 gram) PO Q15M PRN hydroxyzine HCl 10 mg PO BID PRN lancets (FreeStyle Lancets) As directed lisinopril 5 mg PO DAILY metformin 500 mg PO BID omeprazole 40 mg PO DAILY pen needle, diabetic (BD Ultra-Fine Mini Pen Needle) As directed 4 times a day quetiapine 25 mg PO BEDTIME [Raised commode As directed] rivaroxaban (Xarelto) mg PO ropinirole 0.25 mg PO BID [Safety bar For bathroom] walker As directed walker As directed walker As directed, please prescribe walker with seat HPI HPI f/u pt request: Details: Shama Lugo is a 59-year-old female with past medical history of Mcduffie's disease, hypertension, hyperlipidemia, diabetes, smoking, peripheral artery disease status post right AKA, COPD who was recently seen in consultation to evaluate her cardiac status. Her nuclear stress test was abnormal and a CTA of the coronary arteries was ordered however not completed due to hypotension on the day of testing. She now presents for follow-up. Today she reports that she has been doing well overall since her last visit in April. She has no chest discomfort at rest or with activity. She denies concerning shortness of breath. She says she will feel short of breath at times but relates it to her asthma. No PND, orthopnea or edema of her left leg. No palpitations, lightheadedness, presyncope, syncope. She is currently in a wheelchair. She does go to physical therapy and is practicing walking with a prosthetic. Takes meds as directed. No bleeding issues reported. [facility] Medical History Peripheral vascular disease Anemia Essential hypertension Cigarette smoker motivated to quit Uncontrolled type 2 diabetes mellitus with hyperglycemia Diabetes mellitus with nephropathy Annual visit for general adult medical examination with abnormal findings section wound complications Encounter to establish care Type II diabetes mellitus Diabetes COPD (chronic obstructive pulmonary disease) Surgical History History of above-knee amputation of right lower extremity H/O neck surgery History of mandibular surgery H/O foot surgery H/O hernia repair H/O section H/O angioplasty History of hysterectomy History of colonoscopy History of laparoscopic adjustable gastric banding S/P bilateral breast reduction S/P carpal tunnel release Status post cataract extraction Family History Sister Breast cancer Mother Breast cancer Substance use disorder Mental health disorder Brother Substance use disorder Brother Substance use disorder Sister No problems noted. 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 Cognitive needs: Yes Hearing needs: No Vision needs: Yes (Glaucoma and cataracts being treated) Review of Systems Const Details: Mostly sedentary, in wheelchair All systems reviewed & are unremarkable except as noted in HPI and below Denies chills, Denies fatigue, Denies fever(s), Denies weight gain and Denies weight loss ENT Denies dizziness Card Denies chest pain, Denies leg edema, Denies lightheadedness, Denies palpitations, Reports dyspnea on exertion, Denies orthopnea and Denies other Resp Denies cough and Reports dyspnea on exertion GI Denies hematochezia and Denies change in stool character Musc Reports abnormal gait (Right AKA), Denies muscle weakness, Denies numbness, Denies radiating pain into limb and Denies tingling Neuro Reports abnormal gait (Right AKA), Denies dizziness, Denies numbness and Denies tingling Endo Denies fatigue and Denies palpitations Physical Exam Vital Signs: Last Vital Signs Pulse 83 07/14/24 08:23 BP 90/50 L 07/14/24 08:23 Const General: cooperative, healthy appearing, comfortable and no acute distress Orientation/consciousness: patient oriented x3 Neck Neck: Yes normal visual inspection Resp Effort & Inspection: normal respiratory effort Auscultation: clear to auscultation bilaterally, no rales, no rhonchi and no wheezes Cardio Jugular venous distension: no JVD Rate: regular rate Rhythm: regular rhythm Heart sounds: S1 normal heart sound present, S2 normal heart sound present, no murmurs and no rubs Neuro General: patient oriented x3 Extrem Other: right AKA General: No no pedal edema Psych Appearance: grossly normal Mental Status: mental status grossly normal Speech and movement: Normal speech and movement present Assessment & Plan Assessment & Plan (1) Abnormal nuclear stress test: Code(s): R94.39 - Abnormal result of other cardiovascular function study Category: Medical Plan: Patient is undergoing cardiac evaluation due to multiple cardiac risk factors including hypertension, hyperlipidemia, diabetes, smoking, peripheral artery disease. She currently denies any anginal sounding symptoms. Her recent EKGs have not shown ischemic findings or findings of prior [place]. She had an echocardiogram 03/10/2024 showing EF 56%, mild calcification of the aortic valve, moderate mitral annular calcification. A nuclear stress test done on 03/10/2024 shows inferior and inferior septal ischemia, EF 45% although visually appears higher. A CTA of the coronary arteries was ordered for her. On the day of the test she did have low blood pressure readings which is not unusual for her. They were unable to give her beta-valerio to slow her heart and complete the CTA the test was canceled. Today she states that she has been feeling well with no concerning symptoms. Blood pressure is on the low side again today. Recheck done by me 108/48. She is not interested in pursuing the CTA of the coronary arteries again. Discuss the possibility of a diagnostic cardiac catheterization and she is not interested in this either. Informed her that the abnormal stress test could mean that she likely has coronary artery disease and may be at risk for heart attack. She says she is feeling good and she will have further heart testing if she has symptoms. Signs and symptoms of angina discussed. Emergency care if ever needed. Continue aspirin and high-dose atorvastatin. She is agreeable to this plan. Cardiology follow-up 6 months, sooner if needed. (2) Essential hypertension: Code(s): I10 - Essential (primary) hypertension Category: Medical Plan: Initially low at 90 over 50. Recheck done by me 108/48. No med changes made. (3) Hyperlipidemia: Code(s): E78.5 - Hyperlipidemia, unspecified Category: Medical Qualifiers: Hyperlipidemia type: mixed hyperlipidemia Qualified Code(s): E78.2 - Mixed hyperlipidemia Plan: [place] LDL goal less than 70 in patient with diabetes, PAD and presumed CAD. Labs done showing LDL 29. Continue atorvastatin 80 mg daily. (4) Peripheral vascular disease: Code(s): I73.9 - Peripheral vascular disease, unspecified Category: Medical Plan: Right AKA. Follows with Dr. Chopra for vascular needs. Plan Time spent on chart review, documentation, interview and assessment Coding Level of Care Code Est Pt Level 4 (05838) Complex EM visit Add On G2211 Diagnoses Abnormal nuclear stress test R94.39 Essential hypertension I10 Mixed hyperlipidemia E78.2 Hyperlipidemia type: mixed hyperlipidemia Peripheral vascular disease I73.9 Time Spent (min) 32
== END 2024-07-14 09:05 | disposition home or self-care (01) ==
PROVIDERS: PCP Internal Medicine; Visit Provider Nurse Practitioner Family
DX: R94.39 Abnormal result of other cardiovascular function study (principal); I10 Essential (primary) hypertension; E78.2 Mixed hyperlipidemia; I73.9 Peripheral vascular disease, unspecified
CPT/HCPCS: 99214; G2211

== ENCOUNTER 2024-08-04 09:33 | Outpatient (AMB) | payer OTHER, SELFPAY ==
--- NOTE | 2024-08-04 09:30 | MHC.PC.OV ---
Intake Visit Reasons: smoking cessation Iphone [phone] Intake Note: Pt is having a telehealth visit to stop smoking Allergies No Known Allergies Allergy (Verified 08/04/24 09:39) Medication List - Last Reconciled 08/04/24 by Anel Barrera MD acetaminophen 325 mg PO TID PRN albuterol sulfate 90 mcg/actuation (Ventolin HFA) 2 puffs inhalation Q4-6H PRN aspirin (Adult Low Dose Aspirin) 81 mg PO DAILY atorvastatin 80 mg PO DAILY [Bath strips As directed] [bed rail As directed] [bed wedge As directed] blood sugar diagnostic (FreeStyle Lite Strips) As directed- checks 4 X/day blood-glucose meter (FreeStyle Lite Meter kit) As directed checks 4 X/dasy blood-glucose sensor ([employer] G7 Sensor device) Use daily As directed to monitor glucose buprenorphine HCl 2 mg sublingual DAILY bupropion HCl XL 300 mg PO QAM buspirone 15 mg PO BID diclofenac sodium 1% (Arthritis Pain (diclofenac)) 2 grams topical QID PRN dulaglutide (Trulicity) 3 mg (0.5 mL) subcut QWEEK ferrous fumarate 325 mg PO DAILY flash glucose scanning reader ([employer] Bhavesh 2 [place]) As directed flash glucose sensor (FreeStyle Bhavesh 2 Sensor kit) As directed change every 14 days glucose (Dex4 Glucose) 16 grams (4 x 4 gram) PO Q15M PRN hydroxyzine HCl 10 mg PO BID PRN lancets (FreeStyle Lancets) As directed lisinopril 5 mg PO DAILY metformin 500 mg PO BID omeprazole 40 mg PO DAILY pen needle, diabetic (BD Ultra-Fine Mini Pen Needle) As directed 4 times a day [Raised commode As directed] rivaroxaban (Xarelto) mg PO ropinirole 0.25 mg PO BID [Safety bar For bathroom] trazodone 50 mg PO BEDTIME PRN walker As directed walker As directed walker As directed, please prescribe walker with seat Tobacco use date assessed: 08/04/24 Dental Screening Dental Screen Date: 08/04/24 Did you have a dental visit in the last 12 months?: Yes Did you have a dental problem in the last 6 months where you did not have access to dental care?: No Was dental information given to patient?: Patient has dentist HPI smoking cessation Iphone [phone] HPI Details 59-year-old female with past medical history of Darke's disease, hypertension, hyperlipidemia, diabetes, peripheral artery disease status post right AKA, COPD here today via telehealth, requesting assistance to quit smoking. Currently smokes 10 cigarettes a day . Was able to quit for 8 months while on Chantix, did not experience any side effects from taking it. Would like to try taking Chantix again to help her quit smoking. [facility] Medical History Peripheral vascular disease Anemia Essential hypertension Cigarette smoker motivated to quit Uncontrolled type 2 diabetes mellitus with hyperglycemia Diabetes mellitus with nephropathy Annual visit for general adult medical examination with abnormal findings section wound complications Encounter to establish care Type II diabetes mellitus Diabetes COPD (chronic obstructive pulmonary disease) Surgical History History of above-knee amputation of right lower extremity H/O neck surgery History of mandibular surgery H/O foot surgery H/O hernia repair H/O section H/O angioplasty History of hysterectomy History of colonoscopy History of laparoscopic adjustable gastric banding S/P bilateral breast reduction S/P carpal tunnel release Status post cataract extraction Family History Sister Breast cancer Mother Breast cancer Substance use disorder Mental health disorder Brother Substance use disorder Brother Substance use disorder Sister No problems noted. 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 Russel, Sergey Vargas and colleagues, with an educational dakota from [employer]. Review of Systems Const Denies chills, Denies fatigue and Denies fever(s) ENT Denies dizziness Card Denies chest pain, Denies leg edema, Denies lightheadedness, Denies palpitations, Reports dyspnea on exertion, Denies orthopnea and Denies other Resp Denies cough and Reports dyspnea on exertion GI Denies hematochezia and Denies change in stool character Musc Details: Status post right AKA, now has artificial leg, currently getting physical therapy Denies muscle weakness, Denies numbness, Denies radiating pain into limb and Denies tingling Neuro Denies dizziness, Denies numbness and Denies tingling Psych Reports no additional complaints Endo Denies fatigue and Denies palpitations Physical exam (Primary Care) Tobacco/Smoking Status: Tobacco use Status Tobacco use date assessed 08/04/24 08/04/24 09:33 Patient Tobacco Use Status Current someday Tobacco 08/04/24 09:33 Tobacco use type Cigarette 08/04/24 09:33 e-Cigarette/Vaping Use Never Used 08/04/24 09:33 Thrive Assessment: Date of Thrive Assessment Date Thrive assessed 06/26/24 08/04/24 09:33 Telehealth Telehealth Telehealth Platform: [employer] Location of provider rendering services: practice address Location of patient: address on file Patient Identification confirmed using: Name, : Yes Telehealth method: video Patient verbally consented to treatment: Yes Patient verbally consented to billing insurance company: Yes Minutes spent on Phone/Video with Pt.: 15 Coding Level of Care Code Tele Est Pt Level 3 (93967) Diagnoses Cigarette smoker motivated to quit F17.210 Assessment & Plan Assessment & Plan (1) Cigarette smoker motivated to quit: Code(s): F17.210 - Nicotine dependence, cigarettes, uncomplicated Category: Social Hx Plan: Prescription sent for varenicline starter pack, to take as directed. Patient advised to take it with a full glass of water and with meals. Discussed possible side effects of medication which may include some nausea, abdominal cramping, and vivid dreams. Will see her back for follow-up 4 weeks after starting varenicline, to determine whether to continue with treatment Medications: New varenicline PO PER PKG DIR 53 ea 0RF
== END 2024-08-04 13:26 | disposition home or self-care (01) ==
LOC: HO.HMCC 09:33
PROVIDERS: PCP Internal Medicine; Visit Provider Internal Medicine
DX: F17.210 Nicotine dependence, cigarettes, uncomplicated (principal)

== ENCOUNTER → 2024-08-04 09:33 | Outpatient (BNVA) | payer OTHER, SELFPAY | PROVIDERS: PCP Internal Medicine; Visit Provider Internal Medicine ==

== ENCOUNTER 2024-12-18 09:23 | Outpatient (AMB) | payer OTHER, SELFPAY ==
[2024-12-18 09:26] VITALS: BP 124/68; PULSE 76; O2SAT 96
--- NOTE | 2024-12-18 09:26 | A.OFFVIS_ITS ---
Vital Signs 12/18/24 09:26 Height 5 ft 2 in BP 124/68 Blood Pressure Location Rt brachial Position Sitting Pulse 76 Pulse Source Pulse Oximeter Pulse Oximetry (%) 96 Oxygen Delivery Method Room Air Intake Visit Reasons: T2DM Intake Note: Patient presents today for a follow-up on Type 2 Diabetes Mellitus: Last Diabetic eye exam was on: DUE Last Podiatry exam was on: Patient does not see a Clark Driver Most recent HbA1c: 7.9%, 12/18/2024 Random Glucose- 213 mg/dL, Today Keller Machine Operator Required: No Accompanied by: Self / Same As Patient Allergies No Known Allergies Allergy (Verified 12/18/24 09:27) Medication List - Last Reconciled 12/18/24 by Selin Carson PA-C acetaminophen 325 mg PO TID PRN albuterol sulfate 90 mcg/actuation (Ventolin HFA) 2 puffs inhalation Q4-6H PRN aspirin (Adult Low Dose Aspirin) 81 mg PO DAILY atorvastatin 80 mg PO DAILY [Bath strips As directed] [bed rail As directed] [bed wedge As directed] blood sugar diagnostic (FreeStyle Lite Strips) As directed- checks 4 X/day blood-glucose meter (FreeStyle Lite Meter kit) As directed checks 4 X/dasy blood-glucose sensor (Discourse G7 Sensor device) Use daily As directed to monitor glucose buprenorphine HCl 2 mg sublingual DAILY bupropion HCl XL 300 mg PO QAM buspirone 15 mg PO BID diclofenac sodium 1% (Arthritis Pain (diclofenac)) 2 grams topical QID PRN ferrous fumarate 325 mg PO DAILY flash glucose scanning reader (WeOweStyle Bhavesh 2 Solomon) As directed flash glucose sensor (FreeStyle Bhavesh 2 Sensor kit) As directed change every 14 days glucose (Dex4 Glucose) 16 grams (4 x 4 gram) PO Q15M PRN hydroxyzine HCl 10 mg PO BID PRN lancets (FreeStyle Lancets) As directed lisinopril 5 mg PO DAILY omeprazole 40 mg PO DAILY pen needle, diabetic (BD Ultra-Fine Mini Pen Needle) As directed 4 times a day [Raised commode As directed] rivaroxaban (Xarelto) mg PO ropinirole 0.25 mg PO BID [Safety bar For bathroom] trazodone 50 mg PO BEDTIME PRN varenicline tartrate PO PER PKG DIR walker As directed walker As directed walker As directed, please prescribe walker with seat HPI HPI T2DM: Details: This is a 59-year-old female with a history of type 2 diabetes presenting today for a follow up Endo: DM-Her last A1c was 6.4 and today it is 7.8. At our last visit in June we were able to discontinue Lantus and Humalog but she states that since the holidays her blood sugars have gone up. She has had a lot of family stressors. She has had to reinitiate Lantus at 6 units in his sometime using Humalog for food but maybe over boluses herself and does end up with some lows. She states she really wants an insulin pump. she is compliant with trulicity 3 mg weekly. she is still on the metformin 500 mg twice a day. She is compliant with her Dexcom. She states she is eating very healthy and her daughter has her on a strict diabetic diet. -D/C Farxiga in light of PAD and right above knee amputation last year CGM- 14% very high, 29% high, 56% in range, 1% low, 1% very low -corrects her lows with glucose tabs or cookies. CV: She is on lisinopril 5 mg daily. Blood pressure today in the office is 124/68. She controls are cholesterol atorvastatin 80 mg. She is compliant with the Eliquis and atorvastatin. Follows with Dr. Lowe ([facility]). Nephro: Follows closely with Nephrology [facility] Medical History Peripheral vascular disease Anemia Essential hypertension Cigarette smoker motivated to quit Uncontrolled type 2 diabetes mellitus with hyperglycemia Diabetes mellitus with nephropathy Annual visit for general adult medical examination with abnormal findings section wound complications Encounter to establish care Type II diabetes mellitus Diabetes COPD (chronic obstructive pulmonary disease) Surgical History History of above-knee amputation of right lower extremity H/O neck surgery History of mandibular surgery H/O foot surgery H/O hernia repair H/O section H/O angioplasty History of hysterectomy History of colonoscopy History of laparoscopic adjustable gastric banding S/P bilateral breast reduction S/P carpal tunnel release Status post cataract extraction Family History Sister Breast cancer Mother Breast cancer Substance use disorder Mental health disorder Brother Substance use disorder Brother Substance use disorder Sister No problems noted. 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 Cognitive needs: Yes Hearing needs: No Vision needs: Yes (Glaucoma and cataracts being treated) Physical Exam Vital Signs: Last Vital Signs Pulse 76 12/18/24 09:26 BP 124/68 12/18/24 09:26 Pulse Ox 96 12/18/24 09:26 Oxygen Delivery Method Room Air 12/18/24 09:26 Const Orientation/consciousness: patient oriented x3 HEENT Ears: hearing grossly normal bilaterally Neck Thyroid: Thyroid normal Lymphatic: no lymphadenopathy noted Resp Auscultation: clear to auscultation bilaterally Cardio Rate: regular rate Rhythm: regular rhythm Heart sounds: S1 normal heart sound present and S2 normal heart sound present Skin General skin exam: no rashes or lesions noted Neuro General: patient oriented x3, gait normal and no focal motor deficits Results AMB Hemoglobin A1c AMB Hemoglobin A1c 7.9 % Last Edit by DEMETRIA Linder on 12/18/24 09:46 Results Reviewed Results Reviewed: Laboratory Last Values Glucose (Clinic) 213 mg/dL (60-115) H 12/18/24 09:33 Laboratory Tests 06/01/24 12/18/24 06:20 09:33 Sodium 140 Potassium 4.5 Chloride 102 Carbon Dioxide 25 Anion Gap 18 BUN 12 Creatinine 0.89 Estimated GFR > 60 Glucose (Clinic) 213 H Hemoglobin A1c % 6.4 H Triglycerides 154 H Cholesterol 116 LDL Cholesterol, Calc 29 HDL Cholesterol 57 Assessment & Plan Assessment & Plan (1) Diabetes mellitus due to underlying condition, uncontrolled, with hyperglycemia, with long-term current use of insulin: Code(s): E08.65 - Diabetes mellitus due to underlying condition with hyperglycemia; Z79.4 - snf (current) use of insulin Category: Medical Plan: We will restart the Lantus 10 units. Increase metformin back to 1000 mg twice a day. Increase Trulicity to 4.5 mg weekly. (2) History of above-knee amputation of right lower extremity: Code(s): Z89.611 - Acquired absence of right leg above knee Category: Medical Plan: Doing well with her BKA. Has her leg and has started exercising. (3) Essential hypertension: Code(s): I10 - Essential (primary) hypertension Category: Medical Plan: WNL. Continue current regimen Orders: Orders AMB Hemoglobin A1c Today E11.21 - Type 2 diabetes mellitus with diabetic nephropathy Medications: New insulin glargine (Lantus Solostar U-100 Insulin) 10 units (0.1 mL) subcut QPM 15 mL 1RF metformin 1,000 mg PO BID 180 tabs 2RF dulaglutide (Trulicity) 4.5 mg (0.5 mL) subcut QWEEK 2 mL 3RF pen needle, diabetic (BD Ultra-Fine Mini Pen Needle) As directed 4 times a day 100 ea 1RF Discontinued flash glucose sensor (FreeStyle Bhavesh 2 Sensor kit) Discontinued Reason: Doctor's Order As directed change every 14 days 6 ea 1RF E11.9 - Type 2 diabetes mellitus without complications Coding Level of Care Code Est Pt Level 4 (95690) Complex EM visit Add On G2211 Diagnoses Diabetes mellitus due to underlying condition, uncontrolled, with hyperglycemia, with long-term current use of insulin E08.65; Z79.4 History of above-knee amputation of right lower extremity Z89.611 Essential hypertension I10
[2024-12-18 09:37] LABS: Glucose, Whole Blood 213 mg/dL (60-115)
--- OUTSIDE RECORDS SUMMARY | 2024-12-18 10:03 | XMS_ITS ---
Author Organization [facility] Care Team Providers Care Print Line Operator Name Role Phone Emily Vila Unavailable Unavailable Lina Hanks Unavailable Unavailable Lara Berry Unavailable Unavailable Geraldine Lopez Unavailable Unavailable Allergies and adverse reactions No Known Allergies Care Team Name Role Address Phone Organization Dates Lina Hanks PCP [address] [facility] [address], [place], [address], [place] (Office): [facility] 10/30/2023 - 11/01/2023 Emily Vila Attending Physician [address] [place] [address] [place] [address], [address], [place] (Office): [facility] 10/30/2023 - 11/01/2023 Lara Berry Attending Physician [address] [facility] [address], [place], [address], [place] (Office): [facility] 10/30/2023 - 11/01/2023 Geraldine Lopez Attending Physician [address] [place], [address], [place] (Office): [facility] 10/30/2023 - 11/01/2023 Immunizations Immunization Status Vaccine Details Vaccine Code CodeSystem Date Notes TB 2 Step Mantoux Skin Test completed tuberculin skin test; unspecified formulation lotNumber: [id number] expiry: 02/08/2024 Mfg: [employer] Given 0.1 ml Right Forearm subcutaneously Step 1 of Multi-step 98 CVX created date: 10/30/2023 consent date: 10/30/2023 administere d date: 10/30/2023 Mental Status Section Date Assessment Total Score Description 11/01/2023 BIMS 15 cognitively int act CAM 0 No delirium ind icated 11/01/2023 CAM 0 No delirium ind icated Problems Problem # Description Date of onset Resolved Date Code CodeSystem Concern Status 1 GASTRO-ESOPHAGEAL REFLUX DISEASE WITHOUT ESOPHAGITIS 10/30/[address] active 2 HYPERLIPIDEMIA, UNSPECIFIED 10/30/[address] active 3 OTHER DISORDER OF CIRCULATORY SYSTEM 10/30/[address] active 4 TYPE 2 DIABETES MELLITUS WITH DIABETIC NEPHROPATHY 10/30/[address] active 5 ATHEROSCLEROSIS OF [place] ARTERIES OF EXTREMITIES WITH REST PAIN, RIGHT LEG 10/29/[address] active 6 BIPOLAR DISORDER, UNSPECIFIED 10/29/[address] active 7 DIFFICULTY IN WALKING, NOT ELSEWHERE CLASSIFIED 10/29/[address] active 8 ENCOUNTER FOR SURGICAL AFTERCARE FOLLOWING SURGERY ON THE CIRCULATORY SYSTEM 10/29/[address] active 9 ESSENTIAL (PRIMARY) HYPERTENSION 10/29/[address] active 10 ROSSY'S DISEASE 10/29/[address] active 11 MUSCLE WEAKNESS (GENERALIZED) 10/29/[address] active 12 PERIPHERAL VASCULAR DISEASE, UNSPECIFIED 10/29/[address] active 13 PERSONAL HISTORY OF DIABETIC FOOT ULCER 10/29/[address] active 14 POST-TRAUMATIC STRESS DISORDER, UNSPECIFIED 10/29/[address] active 15 WEAKNESS 10/29/[address] active Reason for Referral No Reasons for Referral Entered Social History Social History Observation Description Start Date End Date Code Code System Current Smoking Status Tobacco smoking consumption unknown 613410521 SNOMED CT Sex Assigned At Female 1965 38435-2 [facility] Vital Signs Code Code System Vitals Name Values and Units Timing Information 98135-7 [facility] Pain Level Value=2.0 11/01/2023 9279-1 [facility] Respiratory Rate Value=18.0 Units=/m in 11/01/2023 8462-4 [facility] Blood Pressure-Diastolic Value=80 Un its=mmHg 11/01/2023 8480-6 [facility] Blood Pressure-Systolic Vvkns=148 Un its=mmHg 11/01/2023 8310-5 [facility] Body Temperature Value=98.6 Units=?? F 11/01/2023 8867-4 [facility] Heart rate Value=79.0 Units=/min 87890-9 [facility] O2 % [facility] Oximetry Value=96.0 Units= % 11/01/2023 2339-0 [facility] Blood Sugar Rhfqk=633.0 Units=mg/dL 11/01/2023 30773-5 [facility] Weight Lnwca=594.4 Units=Lbs 8302-2 [facility] Height Value=62.0 Units=Inches 10/30/2023
--- OUTSIDE RECORDS SUMMARY | 2024-12-18 10:04 | XMS_ITS | Clinical Summary ---
Author Organization [facility] Address [address] [place] [address] Phone Care Team Providers Care Senior Python Developer Name Role Phone Jason Barrera MD Primary Care Provider [phone] Allergies Active Allergy Reactions Criticality Noted Date Comments Amitriptyline Other (see comments) 09/05/2018 Tinnitus Medications Multiple Vitamin (MULTIVITAMIN ADULT PO) Take 1 tablet by mouth 1 (one) time each day Active buPROPion XL (WELLBUTRIN XL) 150 MG 24 hr tablet Take 300 mg by mouth every morning 03/28/2021 Active busPIRone (BUSPAR) 10 MG tablet Take 2 tablets by mouth in the morning and 2 tablets in the evening. 08/01/2021 Active hydrOXYzine (ATARAX) 10 MG tablet Take 10 mg by mouth 2 (two) times a day if needed Active metFORMIN (GLUCOPHAGE) 1000 MG tablet Take 1,000 mg by mouth in the morning and 1,000 mg in the evening. 12/16/2021 Active nicotine (Nicotrol) 10 MG inhaler Inhale 1 puff if needed 10/13/2021 Active omeprazole (PriLOSEC) [address] capsule Take 1 tablet by mouth 1 (one) time each day 09/12/2021 Active QUEtiapine (SEROquel) 25 MG tablet Take 1 tablet by mouth at bed time 03/28/2021 Active rOPINIRole (REQUIP) 0.25 MG tablet Take 1 tablet by mouth in the morning and 1 tablet in the evening. 01/09/2022 Active buprenorphine (SUBUTEX) [address] 2 mg under the tongue 1 (one) time each day 02/09/2023 Active atorvastatin (LIPITOR) 80 MG tablet Take 80 mg by mouth 1 (one) time each day 01/28/2023 Active Trulicity 0.75 MG/0.5ML solution pen-injector Inject 0.5 mg under the skin every 7 (seven) days 02/22/2023 Active lisinopril 5 MG tablet Take 5 mg by mouth 1 (one) time each day 03/04/2023 Active clopidogrel (PLAVIX) 75 MG tablet Take 75 mg by mouth 1 (one) time each day 11/27/2022 Active insulin glargine (Lantus SoloStar) 100 UNIT/ML injection Inject 25 Units under the skin every night 01/24/2021 Active insulin lispro (HumaLOG) 100 UNIT/ML injection Inject 8 Units under the skin 01/20/2022 Active apixaban (Eliquis) 5 MG tablet Take 5 mg by mouth in the morning and 5 mg in the evening. 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 Normal B12, negative lyme, RPR. Normal EEG Enzyme level - finding 09/09/201807/28 Overview (07/28/2022): US, hepatitis work up unremarkable. Referred to GI Finding of urine substance level 09/05/2018 07/28/2022 Overview (07/28/2022): Hospitalized for AMS had opiod withdrawal and positive urine drug screen see provider note 07/2108 Disorder of nervous system d ue to type 2 diabetes mellitus 11/07/2014 07/28/2022 Impingement syndrome of shoulder region 10/30/2014 07/28/2022 Overview (07/28/2022): Tammy Singer note 02-19-2014 Family History Medical History Relation Comments Cancer Mother breast cancer Cancer Sister breast cancer Relation Status Comments Mother Sister Social History Tobacco Use Types Packs/Day Years Used Date Smoking Tobacco: Every Day Cigarettes Smokeless Tobacco: Never Tobacco Cessation:Ready to Q uit: Not Asked; Counseling Given: Not Answered Comments Unknown Sex and Gender Information Value Date Recorded Sex Assigned at Not on file Legal Sex Female 10:35 AM EDT Gender Identity Not on file Sexual Orientation Straight 03/14/2024 12 :11 PM EDT Last Filed Vital Signs Vital Sign Reading Time Taken Comments Blood Pressure 110/64 08/12/2023 9:56 AM EDT Pulse 62 08/12/2023 9:56 AM EDT Temperature - - Respiratory Rate - - Oxygen Saturation 93% 08/12/2023 9:56 AM EDT Inhaled Oxygen Concentration - - Weight 75.3 kg (166 lb) 08/12/2023 9:56 AM EDT Height 160 cm (5' 3 ) 08/12/2023 9:56 AM EDT Body Mass Index 29.41 08/12/2023 9:56 AM EDT Plan of Treatment Upcoming Encounters Date Type Department Care Team (Late st Contact Info) Description 03/14/2025 9:00 AM EDT Office Visit [facility] [address] [phone] Raymond Ahmadi MD [address] [address] Health Maintenance Due Date Last Done Comments Breast Cancer Screening 1965 Hepatitis B Vaccine (1 of 3 - 19+ 3-dose series) 04/24 Pneumococcal Vaccine: Pediat rics (0 to 5 Years) and At-Risk Patients (6 to 64 Years) (2 of 2 - PCV) 07/16/2007 07/16/2006 Colorectal Cancer Screening: Annual FOBT 2014 Colorectal Cancer Screening: Colonoscopy 2014 Colorectal Cancer Screening: Sigmoidoscopy 2014 Diabetes: Hemoglobin A1C 05/13/2022 Diabetes: Ophthalmology Exam 05/13/2022 01/24/2009 Diabetes: Pedal Pulse Checked 05/13/2022 Diabetes: Sensory Foot Exam 05/13/2022 Diabetes: Visual Foot Exam 05/13/2022 Influenza Vaccine (#1) 2024 08/21/2018 Insurance [facility] ([id number]) [place] [id number] [facility] ([id number]) [place] [phone] Care Teams Senior Python Developer Relationship Specialty Start Date End Date Jason Barrera [place] [address] PCP - General Internal Medicine 05/11/22
--- OUTSIDE RECORDS SUMMARY | 2024-12-18 10:04 | XMS_ITS | Clinical Summary ---
Author Organization [facility] Address [address] [place] [address] Care Team Providers Care Egg Worker Name Role Phone Bridgette Richmond DMD Primary Care Provider [phone] Source Comments PLEASE NOTE, if this patient is a minor, it may be UNLAWFUL to discuss sensitive information that is contained in these records (such as FAMILY PLANNING, MENTAL HEALTH or SUBSTANCE ABUSE) with the minor patient's parent or other person without the patient's specific authorization.[facility] Medications ibuprofen (ADVIL,MOTRIN) 600 mg tabletIndication s:Periodontitis Take 1 Tab by mouth 4 (four) times daily as needed for pain 12 Tab 02/07/2018 Active amoxicillin (AMOXIL) 500 mg capsuleIndicatio ns:Infected tooth Take 1 Cap by mouth 3 (three) times daily 21 Cap 08/25/2018 Active ibuprofen (ADVIL,MOTRIN) 600 mg tabletIndication s:Pain in tooth Take 1 Tab by mouth 4 (four) times daily as needed for pain 20 Tab 08/25/2018 Active amoxicillin (AMOXIL) 500 mg capsule Take 1 Cap by mouth 3 (three) times daily 20 Cap 09/21/2018 Active Social History Tobacco Use Types Packs/Day Years Used Date Smoking Tobacco: Never Assessed Social Connections Answer Date Recorded Social Connections and Isolation 0 06/03/2019 Financial Resource Strain Answer Date R ecorded Financial Resource Strain 0 2018 Stress Answer Date Recorded Stress 0 06/03/2019 Physical Activity Answer Date Recorded Physical Activity 0 06/03/2019 Food Insecurity Answer Date Recorded Food 0 06/03/2019 Transportation Needs Answer Date Record ed Transportation 0 06/03/2019 Housing Stability Answer Date Recorded Housing 0 06/03/2019 Safety and Environment Answer Date Chuy rded Safety 0 06/03/2019 Utilities Answer Date Recorded Utilities 0 06/03/2019 Employment Answer Date Recorded Employment 0 06/03/2019 Comments Unknown Sex and Gender Information Value Date Recorded Sex Assigned at Female 12/12/2019 4:12 PM PST Legal Sex Female 11:36 AM PDT Gender Identity Female 12/12/2019 4:12 PM PST Sexual Orientation Straight 12/12/2019 4: 12 PM PST Plan of Treatment Not on file Insurance [facility] [place] D[place]AL [facility] Care Teams Egg Worker Relationship Specialty Start Date End Date Bridgette Richmond DMD [address] [place] [address] PCP - General 12/20/20
== END 2024-12-18 09:52 | disposition home or self-care (01) ==
PROVIDERS: PCP Internal Medicine; Visit Provider Physician Assistant
DX: E11.21 Type 2 diabetes mellitus with diabetic nephropathy (principal); Z79.4 Long term (current) use of insulin; Z89.611 Acquired absence of right leg above knee; I10 Essential (primary) hypertension

== ENCOUNTER → 2024-12-18 09:23 | Outpatient (BNVA) | payer OTHER, SELFPAY | PROVIDERS: PCP Internal Medicine; Visit Provider Physician Assistant | DX: I10 Essential (primary) hypertension (principal); E78.2 Mixed hyperlipidemia; F17.200 Nicotine dependence, unspecified, uncomplicated; E11.65 Type 2 diabetes mellitus with hyperglycemia; Z71.6 Tobacco abuse counseling; Z79.4 Long term (current) use of insulin; Z89.611 Acquired absence of right leg above knee | CPT/HCPCS: 82947; 83036; 96127; 99212 ==

== ENCOUNTER 2024-12-18 13:20 | Outpatient (AMB) | payer OTHER, SELFPAY ==
[2024-12-18 13:22] VITALS: BP 124/60; PULSE 80; TEMP 36.9; O2SAT 99; BMI 24.3
--- NOTE | 2024-12-18 13:22 | MHC.PC.OV ---
Vital Signs 12/18/24 13:22 Height 5 ft 2 in Weight 133 lb BMI 24.3 BP 124/60 Blood Pressure Location Lt brachial Position Sitting Pulse 80 Pulse Source Pulse Oximeter Temp 98.5 F Temp Source Oral Pulse Oximetry (%) 99 Oxygen Delivery Method Room Air Intake Visit Reasons: 6m follow up Intake Note: Pt is here today for her 6mo. f/u Allergies No Known Allergies Allergy (Verified 12/24/24 21:50) Medication List - Last Reconciled 12/18/24 by Anel Barrera MD acetaminophen 325 mg PO TID PRN albuterol sulfate 90 mcg/actuation (Ventolin HFA) 2 puffs inhalation Q4-6H PRN aspirin (Adult Low Dose Aspirin) 81 mg PO DAILY atorvastatin 80 mg PO DAILY [Bath strips As directed] [bed rail As directed] [bed wedge As directed] blood sugar diagnostic (FreeStyle Lite Strips) As directed- checks 4 X/day blood-glucose meter (FreeStyle Lite Meter kit) As directed checks 4 X/dasy blood-glucose sensor (eSnips G7 Sensor device) Use daily As directed to monitor glucose buprenorphine HCl 2 mg sublingual DAILY bupropion HCl XL 300 mg PO QAM buspirone 15 mg PO BID diclofenac sodium 1% (Arthritis Pain (diclofenac)) 2 grams topical QID PRN dulaglutide (Trulicity) 4.5 mg (0.5 mL) subcut QWEEK ferrous fumarate 325 mg PO DAILY glucose (Dex4 Glucose) 16 grams (4 x 4 gram) PO Q15M PRN hydroxyzine HCl 10 mg PO BID PRN insulin glargine (Lantus Solostar U-100 Insulin) 10 units (0.1 mL) subcut QPM lancets (FreeStyle Lancets) As directed lisinopril 5 mg PO DAILY metformin 1,000 mg PO BID pen needle, diabetic (BD Ultra-Fine Mini Pen Needle) As directed 4 times a day [Raised commode As directed] rivaroxaban (Xarelto) mg PO ropinirole 0.25 mg PO BID [Safety bar For bathroom] trazodone 50 mg PO BEDTIME PRN walker As directed walker As directed walker As directed, please prescribe walker with seat Tobacco use date assessed: 12/18/24 Dental Screening Dental Screen Date: 12/18/24 HPI 6m follow up HPI Details 59 year-old female with past medical history of hypertension, hyperlipidemia, diabetes mellitus, peripheral artery disease status post right AKA, COPD here today for her follow-up on her lipids, and hypertension. Has been compliant with taking all her medications, unfortunately continues to smoke cigarettes, but has been cutting back. [facility] Medical History History of opioid abuse Depression with anxiety Peripheral vascular disease Anemia Essential hypertension Cigarette smoker motivated to quit Uncontrolled type 2 diabetes mellitus with hyperglycemia Diabetes mellitus with nephropathy Annual visit for general adult medical examination with abnormal findings section wound complications Encounter to establish care Type II diabetes mellitus Diabetes COPD (chronic obstructive pulmonary disease) Surgical History History of above-knee amputation of right lower extremity H/O neck surgery History of mandibular surgery H/O foot surgery H/O hernia repair H/O section H/O angioplasty History of hysterectomy History of colonoscopy History of laparoscopic adjustable gastric banding S/P bilateral breast reduction S/P carpal tunnel release Status post cataract extraction Family History Sister Breast cancer Mother Breast cancer Substance use disorder Mental health disorder Brother Substance use disorder Brother Substance use disorder Sister No problems noted. 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 1. Little interest or pleasure in doing things: not at all 2. Feeling down, depressed, or hopeless: not at all 3. Trouble falling or staying asleep, or sleeping too much: several days 4. Feeling tired or having little energy: several days 5. Poor appetite or overeating: not at all 6. Feeling bad about yourself - or that you are a failure or have let yourself or your family down: several days 7. Trouble concentrating on things, such as reading the newspaper or watching television: more than half the days 8. Moving or speaking so slowly that other people could have noticed. Or the opposite - being so fidgety or restless that you have been moving around a lot more than usual: not at all 9. Thoughts that you would be better off or of hurting yourself in some way: not at all Total score: 5 Depression Screening Interpretation: Positive (Currently being treated by [facility]) Depression Screening Follow-up: Existing condition, In treatment and Community Mental Health Worker F/U Depression Screening Done: Yes Source: Developed by Drs. Jun Ceja, Anisa Goode, Sergey Vargas and colleagues, with an educational dakota from [employer]. Thrive Questionnaire Date Thrive assessed: 12/12/24 I am a: Patient What is your living situation today?: I have a steady place to live Within the past 12 months, did the food you bought not last and you didn't have the money to get more?: Never true Within the past 12 months, did you worry whether your food would run out before you got money to buy more?: Never true Do you have trouble paying for medicines?: No Do you have trouble getting transportation to medical appointments?: No Do you have trouble paying your heating and electricity bill?: I choose not to answer this question Do you have trouble taking care of your child, family member or friend?: No Do you have trouble with day-to-day activities such as bathing, preparing meals, shopping, managing finances, etc.?: Yes Are you currently unemployed and looking for a job?: No Are you interested in more education?: Yes Please select the resources that you would like help with: Transportation, Utilities, Care for elder or disabled and Daily support Currently or been in a relationship where the following occur: I choose not to answer THRIVE Score: 0 AUDIT C Alcohol Use Questionnaire (AUDIT-C) 1. How often do you have a drink containing alcohol?: Never 3. How often do you have six or more drinks on one occasion?: Never Total Score: 0 STAS-7 AMB Questionnaire STAS-7 Date STAS - 7 assessed: 12/29/22 Feeling nervous, anxious, or on edge: 3 = Nearly every day Not being able to stop or control worryin = Nearly every day Worrying too much about different things: 3 = Nearly every day Trouble relaxin = Nearly every day Being so restless that it is hard to sit still: 3 = Nearly every day Becoming easily annoyed or irritable: 3 = Nearly every day Feeling afraid as if something awful might happen: 3 = Nearly every day Total STAS-7 score (0-4 normal; 5-9 mild; 10-14 moderate; 15-21 severe): 21 Source: Developed by Drs. Jun Ceja, Anisa Goode, Sergey Vargas and colleagues, with an educational dakota from [employer]. STAS-7 Assessment Billing STAS-7 Assessment Tool: STAS-7 Assessment 79940 (Followed by [facility], Psychiatry) Review of Systems Const Reports no additional complaints Eyes Denies change in vision ENT Denies dizziness Card Denies chest pain, Denies rapid heart rate, Denies lightheadedness, Denies palpitations, Denies dyspnea and Denies orthopnea Resp Denies cough and Denies dyspnea GI Denies abdominal pain, Denies bloating, Denies hematochezia and Denies change in stool character Musc Details: in wheelchair, R AKA Denies back pain, Denies limited range of motion, Denies muscle cramps, Denies muscle weakness, Denies numbness, Denies radiating pain into limb, Denies stiffness and Denies tingling Neuro Denies dizziness, Denies numbness and Denies tingling Psych Reports no additional complaints Endo Denies palpitations Fantasma/Lymph Reports no additional complaints Physical exam (Primary Care) Vital Signs: Last Vital Signs Temp 98.5 F 12/18/24 13:22 Pulse 80 12/18/24 13:22 BP 124/60 12/18/24 13:22 Pulse Ox 99 12/18/24 13:22 Oxygen Delivery Method Room Air 12/18/24 13:22 BMI result Body Mass Index 24.3 Tobacco/Smoking Status: Tobacco use Status Tobacco use date assessed 12/18/24 12/18/24 13:24 Patient Tobacco Use Status Current someday Tobacco 12/18/24 13:24 Tobacco use type Cigarette 12/18/24 13:24 e-Cigarette/Vaping Use Never Used 12/18/24 13:24 Depression Screening Interpretation: Positive (Currently being treated by [facility]) Depression Screening Follow-up: Existing condition, In treatment and Community Mental Health Worker F/U Thrive Assessment: Date of Thrive Assessment Date Thrive assessed 12/12/24 12/18/24 13:24 Currently or been in a relationship where the following occur: I choose not to answer Who was present: Patient Const General: cooperative and no acute distress Orientation/consciousness: patient oriented x3 HENMT Head: Yes normocephalic Mouth: oropharynx normal and moist mucous membranes Throat: Yes posterior oropharynx normal Eyes General: appearance normal, both eyes and all related structures Neck Neck: Yes normal visual inspection, Yes full ROM and Yes no lymphadenopathy Resp Effort & Inspection: normal respiratory effort and able to speak in complete sentences Auscultation: clear to auscultation bilaterally, no rhonchi and no wheezes Cardio Rate: regular rate Rhythm: regular rhythm Heart sounds: S1 normal heart sound present and S2 normal heart sound present GI Palpation (GI): Soft to palpation, nontender and no guarding Auscultation: normal bowel sounds General: Yes no CVA tenderness Back/Spine/Pelvis Back: no CVA tenderness and No back tenderness Neuro Other: Right AKA General: patient oriented x3, tone normal, Normal light touch and pain sensation and no focal motor deficits Extrem Other: Right AKA General: Yes full ROM and No edema Left lower extremity: full ROM and no joint enlargement; no edema Psych Appearance: grossly normal and well kempt Mental Status: mental status grossly normal Speech and movement: Normal speech and movement present Affect: normal affect Attitude: cooperative Thought process: Normal thought process present Thought content: Normal thought content present Results AMB Hemoglobin A1c AMB Hemoglobin A1c 7.9 % Last Edit by DEMETRIA Linder on 12/18/24 09:46 Coding Level of Care Code Est Pt Level 4 (50290) Complex EM visit Add On G2211 Diagnoses Essential hypertension I10 Mixed hyperlipidemia E78.2 Hyperlipidemia type: mixed hyperlipidemia Current smoker F17.200 Additional Codes STAS-7 Assessment Billing - STAS-7 Assessment Tool: STAS-7 Assessment 12920 ([id number]) Assessment & Plan Assessment & Plan (1) Essential hypertension: Code(s): I10 - Essential (primary) hypertension Category: Medical Plan: Blood pressure at goal of less than 130/80. Continue lisinopril 5 mg daily. Reinforced importance of following a low sodium diet, smoking cessation, getting regular exercise, and lowering stress levels. Reminded to get her fasting labs done, already ordered (2) Hyperlipidemia: Code(s): E78.5 - Hyperlipidemia, unspecified Category: Medical Qualifiers: Hyperlipidemia type: mixed hyperlipidemia Qualified Code(s): E78.2 - Mixed hyperlipidemia Plan: Currently taking atorvastatin 80 mg daily. Forced importance of following low-cholesterol diet and getting regular exercise. Reminded patient to get her fasting lipid done already ordered an in-lab (3) Current smoker: Code(s): F17.200 - Nicotine dependence, unspecified, uncomplicated Category: Social Hx Plan: Patient strongly advised to stop smoking, as smoking damages blood vessels, degenerative of joints and spine, damage to lungs and heart., predisposes to developing certain cancers like lung, breast, bladder, colon. Recommended to try decreasing cigarette use by 1-2 cigarettes a day. Advised to monitor what triggers are for smoking so that this can be discussed on the next office visit. We can discuss different options to quit smoking when ready.
--- OUTSIDE RECORDS SUMMARY | 2024-12-18 15:04 | XMS_ITS | Data Portability ---
Author Organization [facility] Address [address] [place] [id number] Care Team Providers Care Wood Heel Flap Rubber Name Role Phone [facility] Referring Provider [phone] Assessment Encounter Date Assessment Date Assessment LastModified by Organization Details LastModified Time 11/08/2023 11/08/2023 As noted, we were called to see this patient regarding concerns of wound healing. Evaluation in the field was performed by my career counselor colleague, as noted above, I provided real-time direction and supervision for this visit. 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 She called us for a second opinion. Vitals reassuring. Exam as pictured above. Overall, not concerning for cellulitis or other post op complications. Impression: post-surgical wound Plan: follow up with PCP later this week in person for another eval. also note that patient has fell a few times and went to the ED once for that. Disposition: We discussed the diagnostic uncertainty of home visits and the risk associated with this. In this case, the patient and I felt this to be an acceptable and reasonable amount of risk given the benefit of avoiding an ED visit. We discussed the need to seek care urgently/emerge ntly in the setting of any new or worsening serious symptoms, particularly fevers, chills, dyspnea. [email or web address] Not available 11/08/2023 14:46:16 Plan of Treatment Reminders Order Date Submit Date Provider Last Modified By Organization Details Last Modified Time Details Appointments None record ed. Lab None record ed. Referral None record ed. Procedures None record ed. Surgeries None record ed. Imaging None record ed. Medication Orders None record ed. Patient TargetsNo targets recorded. Patient 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No instructions recorded. Reason for Referral None Reported. Medical Equipment None Reported. Medications Name Sig Start Date Stop Date Status Note LastModified by Organization Details LastModified Time quetiapine 25 mg tablet active Not Available Not Available No t Available atorvastatin 80 mg tablet active Not Available Not Available No t Available nicotine 14 mg/24 hr daily transdermal patch active Not Available Not Available Not Available atorvastatin 10 mg tablet TAKE 1 TABLET BY MOUTH EVERY DAY active Not Available Not Available No t Available hydrocodone 5 mg-acetaminophe n 325 mg tablet active Not Available Not Availa ble Not Available clopidogrel 75 mg tablet active Not Available Not Available No t Available omeprazole 40 mg capsule,delayed release TAKE 1 CAPSULE BY MOUTH EVERY DAY active Not Available Not Available No t Available ropinirole 0.25 mg tablet active Not Available Not Available No t Available metformin 1,000 mg tablet TAKE 1 TABLET BY MOUTH TWICE DAILY active Not Available Not Available No t Available lisinopril 5 mg tablet TAKE 1 TABLET BY MOUTH EVERY DAY active Not Available Not Available No t Available albuterol sulfate HFA 90 mcg/actuation aerosol inhaler active Not Available Not Availa ble Not Available hydroxyzine HCl 10 mg tablet active Not Available Not Available Not Available nicotine 7 mg/24 hr daily transdermal patch active Not Available Not Available Not Available buspirone 15 mg tablet active Not Available Not Available Not Available buprenorphine HCl 2 mg sublingual tablet active Not Available Not Available Not Available buprenorphine HCl [address] ONE (1) TABLET UNDER THE TONGUE EVERY MORNING active Not Available Not Available No t Available bupropion HCl XL 300 mg 24 hr tablet, extended release active Not Available Not Available Not Available chlorhexidine gluconate 0.12 % mouthwash SWISH AND SPIT 1 CAPFUL TWICE A DAY X10 DAYS active Not Available Not Available No t Available Lantus Solostar U-100 Insulin 100 unit/mL (3 mL) subcutaneous pen active Not Available Not Available Not Available Farxiga 5 mg tablet active Not Available Not Available Not Available Trulicity 1.5 mg/0.5 mL subcutaneous pen injector active Not Available Not Available Not Available Trulicity 0.75 mg/0.5 mL subcutaneous pen injector active Not Available Not Available Not Available FreeStyle Bhavesh 2 Sensor kit active Not Available Not Available Not Available Vitals Date Recorded Body temperature Respiratory rate Heart rate Oxygen saturation Oxygen saturation in Arterial blood by Pulse oximetry Systolic blood pressure Diastolic blood pressure Provider Name and Address Organization Details Last Updated DateTime 4 97.1 [degF] 16 /min 72 /min 98 % 98 % 130 mm[Hg] 78 mm[Hg] Not Available [facility] - production 14:28:41 Social History None recorded. Functional Status None recorded. Mental Status None recorded. Family History Nothing Reported. Medical History No medical history recorded. Gynecological HistoryNo gynecological history recorded. Obstetrics History GPAL:G 0 P 0 0 0 0 Past Encounters Encounter ID Performer Location Encounter Start Date Encounter Closed Date Diagnosis/Indication Diagnosis SNOMED-CT Code Diagnosis ICD10 Code Diagnosis Note [id number] JOSE ROBERTO DUNCAN MD [facility] [address] [place] [id number] 11/08/2023 14:28:29 11/09/2023 10:52:40 Post-surgical wound care [id number] Z48.01 Health Concerns Section Related Observation LastModified by Organization Detai ls LastModified Time None Recorded Concern Status LastModified by Organization Details LastModified Time None Recorded Advance Directives Directive None Recorded Payers Encounter Date Sequence Insurance Name Policy Number Policy Lane Covered Member ID Lane Member ID Guarantor Name 11/08/2023 1 [facility] - DOS ON OR AFTER 2023 - DUAL ELIGIBLE - JAIL OPTIONS AND ONE CARE (MEDICARE REPLACEMENT/ADV ANTAGE - HMO) Shama Amy [id number] Shama Reyes Notes Date Note Type Note Provider Name and Address Organization Details Recorded Time 11/08/2023 text/html [facility] Nurse Triage Notes (Madina Villanueva): Reason For Request: Has VNA on scene and are calling to get a 2nd onion about pelon that are weeping. let her know we dont do staple removal, in which she let me know that she has an appointment for that on Nov 19 Chief Complaints: Wound Care Allergies: No Known Comments: Had a right leg amputation this month. Wednesday night fell. Went to ED for evaluation. Imaging negative. VNA came today for dressing change and noticed opened blistered area to incision site. No warmth to surrounded skin noted or swelling. .................. .................. .................. .................. .................. .................. .................. ............... Brick Burner Head Note From Willy Mac: Pt reports that she suffered a fall 2 days ago was seen at the ED a DC stated that since being home she has been feeling fine states that when VNA came today they noticed a blister that ruptured states that clear fluid came out. On arrival pt was noted to have minor redness not hot to touch no swollen was noted to have slight serious fluid from blister area. Pt reports that it hadn? t been worse since the ED. c was called pt advice of warning flag of infection to call back and red flags discussed and cleared. .................. .................. .................. .................. .................. .................. .................. ............... Disposition: Demi DUNCAN MD [address] [facility],[address], [place], [id number], [facility] 11/08/2023 14:47:14 OBGyn Episode No OBEpisode recorded.
--- OUTSIDE RECORDS SUMMARY | 2024-12-18 15:04 | XMS_ITS | Clinical Summary ---
Author Organization [facility] Address [address] [place] [address] Care Team Providers Care Gunstock Spray Unit Adjuster Name Role Phone Bridgette Richmond DMD Primary Care Provider [phone] Source Comments PLEASE NOTE, if this patient [...] Plan of Treatment Not on file Insurance [facility] [place]ICA[place] D[place] [facility] Care Teams Gunstock Spray Unit Adjuster Relationship Specialty Start Date End Date Bridgette Richmond DMD [address] [place] [id number] PCP - General 12/20/20
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
--- OUTSIDE RECORDS SUMMARY | 2024-12-18 15:04 | XMS_ITS | Clinical Summary ---
Author Organization [facility] Address [address] [place] [address] Phone Care Team Providers Care Manager Night Name Role Phone Jason Barrera MD Primary Care Provider [phone] Allergies Active Allergy Reactions Criticality Noted Date [...] Date Diagnosed Date Resolved Date Atherosclerosis of [place] ar teries of the extremities 03/14/2023 08/08/2023 [...] Office Visit [facility] [address] [phone] Raymond Ahmadi MD [address] [address] Health Maintenance Due Date Last [...] 05/13/2022 Influenza Vaccine (#1) 2024 08/21/2018 Insurance [facility] ([id number]) [place] [id number] [facility] ([id number]) [place] [id number] Care Teams Manager Night Relationship Specialty Start Date End Date Jason Barrera MD [facility] [place] [address] PCP - General Internal Medicine 05/11/22
--- OUTSIDE RECORDS SUMMARY | 2024-12-18 15:04 | XMS_ITS ---
Author Organization [facility] Address [address] [facility] [address] [facility] [place] [address] Care Team Providers Care Ward Secretary Name Role Phone Bruce ANDREW, Anel Irene Primary Care Provider Un available Sheela Day Unavailable [phone] Jun Goss Unavailable Unavailable REASON FOR VISIT NS 09/04/2024 appt Encounters Encounter Location Date Provider Diagnosis [address] [address] 09/04/2024 Sheela Day Plan Of Treatment No Information Progress Notes * Shama ANAND ADOB:1965 (59 yo F)Acc No.[id number]:09/04/2024 Patient:?Shama ANAND :1965???Age:59 Y???Sex:Female Address:[address] [place] [address], [place], [address] * true * Date:? Generated for Printi ng/Fajuliag/eTransmitting on:?12/18/2024 03:04 PM EDT
--- OUTSIDE RECORDS SUMMARY | 2024-12-18 15:04 | XMS_ITS ---
Author Organization [facility] Care Team Providers Care Field Contact Person Name Role Phone Emily Vila Unavailable Unavailable Lina Hanks Unavailable Unavailable Lara Berry Unavailable Unavailable Geraldine Lopez Unavailable Unavailable Allergies and adverse reactions No Known Allergies Care Team Name Role Address Phone Organization Dates Lina Hanks PCP [address] [facility] [address], [place], [address], [place] (Office): [facility] 10/30/2023 - 11/01/2023 Emily Vila Attending Physician [address] [place] [address] [place] [address], [address], [place] (Office): [facility] 10/30/2023 - 11/01/2023 Lara Berry Attending Physician [address] [facility] [address], [place], [address], [place] (Office): [facility] 10/30/2023 - 11/01/2023 Geraldine Lopez Attending Physician [address] [place], [address], [place] (Office): [facility] 10/30/2023 - 11/01/2023 Immunizations Immunization Status Vaccine Details Vaccine Code CodeSystem Date Notes TB 2 Step Mantoux Skin Test completed tuberculin skin test; unspecified formulation lotNumber: [id number] expiry: 02/08/2024 Mfg: sanofi P[employer] Given 0.1 [...] 1 GASTRO-ESOPHAGEAL REFLUX DISEASE WITHOUT ESOPHAGITIS 10/30/[address] active 2 HYPERLIPIDEMIA, UNSPECIFIED 10/30/[address] active 3 OTHER DISORDER OF CIRCULATORY SYSTEM 10/30/[address] active 4 TYPE 2 DIABETES MELLITUS WITH DIABETIC NEPHROPATHY 10/30/[address] active 5 ATHEROSCLEROSIS OF [place] ARTERIES OF EXTREMITIES WITH REST PAIN, RIGHT LEG 10/29/[address] active 6 BIPOLAR DISORDER, UNSPECIFIED 10/29/[address] active 7 DIFFICULTY IN WALKING, NOT ELSEWHERE CLASSIFIED 10/29/[address] active 8 ENCOUNTER FOR SURGICAL AFTERCARE FOLLOWING SURGERY ON THE CIRCULATORY SYSTEM 10/29/[address] active 9 ESSENTIAL (PRIMARY) HYPERTENSION 10/29/[address] active 10 ROSSY'S DISEASE 10/29/[address] active 11 MUSCLE WEAKNESS (GENERALIZED) 10/29/[address] active 12 PERIPHERAL VASCULAR DISEASE, UNSPECIFIED 10/29/[address] active 13 PERSONAL HISTORY OF DIABETIC FOOT ULCER 10/29/[address] active 14 POST-TRAUMATIC STRESS DISORDER, UNSPECIFIED 10/29/[address] active 15 WEAKNESS 10/29/[address] active Reason for Referral No Reasons for Referral Entered Social History Social History Observation Description Start Date End Date Code Code System Current Smoking Status Tobacco smoking consumption unknown 731891663 SNOMED CT Sex Assigned At Female 1965 [address]63-0 [facility] Vital Signs Code Code System Vitals Name Values and Units Timing Information 96151-5 [facility] Pain Level Value=2.0 11/01/2023 9279-1 [facility] Respiratory Rate Value=18.0 Units=/m in 11/01/2023 8462-4 [facility] Blood Pressure-Diastolic Value=80 Un its=mmHg 11/01/2023 8480-6 [facility] Blood Pressure-Systolic Xvssq=692 Un its=mmHg 11/01/2023 8310-5 [facility] Body Temperature Value=98.6 Units=?? F 11/01/2023 8867-4 [facility] Heart rate Value=79.0 Units=/min 39021-7 [facility] O2 % [facility] Oximetry Value=96.0 Units= % 11/01/2023 2339-0 [facility] Blood Sugar Trcaw=588.0 Units=mg/dL 11/01/2023 09238-0 [facility] Weight Ynhuc=208.4 Units=Lbs 8302-2 [facility] Height Value=62.0 Units=Inches 10/30/2023
--- OUTSIDE RECORDS SUMMARY | 2024-12-18 15:05 | XMS_ITS ---
Author Organization [facility] Address [address] [facility] [place] [address] Care Team Providers Care Optical Glass Wet Inspector Name Role Phone Bruce ANDREW, Anel Irene Primary Care Provider Un available Sheela Day Unavailable [phone] Jun Goss Unavailable Unavailable Encounters Encounter Location Date Provider Diagnosis [address] [address] 08/07/2024 Sheela Day Plan Of Treatment No Information Progress Notes * DUNGCARMENShama THOMPSON ADOB:1965 (59 yo F)Acc No.[id number]:08/07/2024 Progress Note Patient:Shama CALDWELL Provider:?Sheela Day DPM :1965???Age:59 Y???Sex:Female D ate:08/07/2024 Address:[address] [place], [place] [id number] Pcp:Suman Alas Subjective: * Chief Complaints: * ??? * Medical History:? Objective: * Vitals:? Assessment: Plan: * Treatment: * Images: * The named appointment provid er may or may not be the originator of this progress note, and it is not deemed complete until electronically signed by the appointment provider. Sign off status: Pending * Provider:?Sheela Day DPM Date:? Generated for Printi teir/Ricardo/eTransmitting on:?12/18/2024 03:04 PM EDT
--- OUTSIDE RECORDS SUMMARY | 2024-12-18 15:05 | XMS_ITS ---
Author Organization [facility] [place] Address [address] [facility] [place] [address] Care Team Providers Care Tile Sorter Name Role Phone Bruce ANDREW, Anel Irene Primary Care Provider Un available Sheela Day Unavailable [phone] Jun Goss Unavailable Unavailable Encounters Encounter Location Date Provider Diagnosis [address] [address] 09/04/2024 Sheela Day Plan Of Treatment No Information Progress Notes * DUNGCARMENShama THOMPSON ADOB:1965 (59 yo F)Acc No.[id number]:09/04/2024 Progress Note Patient:Shama CALDWELL Provider:?Sheela Day DPM :1965???Age:59 Y???Sex:Female D ate:09/04/2024 Address:[address] [place], [place] [id number] Pcp:Suman Alas Subjective: * Chief Complaints: * ??? * Medical History:? Objective: * Vitals:? Assessment: Plan: * Treatment: * Images: * The named appointment provid er may or may not be the originator of this progress note, and it is not deemed complete until electronically signed by the appointment provider. Sign off status: Pending * Provider:?Sheela Day DPM Date:? Generated for Printi teri/Ricardo/eTransmitting on:?12/18/2024 10:03 AM EDT
== END 2024-12-18 14:42 | disposition home or self-care (01) ==
PROVIDERS: PCP Internal Medicine; Visit Provider Internal Medicine
DX: I10 Essential (primary) hypertension (principal); E78.2 Mixed hyperlipidemia; F17.200 Nicotine dependence, unspecified, uncomplicated

== ENCOUNTER 2024-12-19 09:26 | Outpatient (AMB) | payer OTHER, SELFPAY ==
[2024-12-19 09:37] VITALS: BP 120/52; PULSE 81; BMI 24.3
--- NOTE | 2024-12-19 09:37 | MHC.OFFVIS ---
Vital Signs 12/19/24 09:37 Height 5 ft 2 in Weight 133 lb BMI 24.3 BP 120/52 L Blood Pressure Location Lt brachial Position Sitting Pulse 81 Pulse Source Pulse Oximeter Intake Visit Reasons: follow up Linoleum Tile Floor Layer Required: No Allergies No Known Allergies Allergy (Verified 12/19/24 09:39) Medication List - Last Reconciled 12/19/24 by HIMA Palacios acetaminophen 325 mg PO TID PRN albuterol sulfate 90 mcg/actuation (Ventolin HFA) 2 puffs inhalation Q4-6H PRN aspirin (Adult Low Dose Aspirin) 81 mg PO DAILY atorvastatin 80 mg PO DAILY [Bath strips As directed] [bed rail As directed] [bed wedge As directed] blood sugar diagnostic (FreeStyle Lite Strips) As directed- checks 4 X/day blood-glucose meter (FreeStyle Lite Meter kit) As directed checks 4 X/dasy blood-glucose sensor (Sanovation G7 Sensor device) Use daily As directed to monitor glucose buprenorphine HCl 2 mg sublingual DAILY bupropion HCl XL 300 mg PO QAM buspirone 15 mg PO BID diclofenac sodium 1% (Arthritis Pain (diclofenac)) 2 grams topical QID PRN dulaglutide (Trulicity) 4.5 mg (0.5 mL) subcut QWEEK ferrous fumarate 325 mg PO DAILY glucose (Dex4 Glucose) 16 grams (4 x 4 gram) PO Q15M PRN hydroxyzine HCl 10 mg PO BID PRN insulin glargine (Lantus Solostar U-100 Insulin) 10 units (0.1 mL) subcut QPM lancets (FreeStyle Lancets) As directed lisinopril 5 mg PO DAILY metformin 1,000 mg PO BID pen needle, diabetic (BD Ultra-Fine Mini Pen Needle) As directed 4 times a day [Raised commode As directed] rivaroxaban (Xarelto) mg PO ropinirole 0.25 mg PO BID [Safety bar For bathroom] trazodone 50 mg PO BEDTIME PRN walker As directed walker As directed walker As directed, please prescribe walker with seat HPI HPI follow up: Details: Shama Lugo is a 59-year-old female with past medical history of [place] disease, hypertension, hyperlipidemia, diabetes, smoking, peripheral artery disease status post right AKA, COPD who was recently seen in consultation to evaluate her cardiac status. Her nuclear stress test was abnormal and a CTA of the coronary arteries was ordered however not completed due to hypotension on the day of testing. She now presents for follow-up. Today she reports that she has been doing well overall since her last visit in April. She has no chest discomfort at rest or with activity. At times she has mild sob that she relates to asthma. No PND, orthopnea or left leg edema. She has a right AKA. No palpitations, lightheadedness, presyncope, syncope. She is currently in a wheelchair. She is still learning to walk with her prosthetic leg. Mostly sedentary. No bleeding issues. Takes meds as directed. [facility] Medical History History of opioid abuse Depression with anxiety Peripheral vascular disease Anemia Essential hypertension Cigarette smoker motivated to quit Uncontrolled type 2 diabetes mellitus with hyperglycemia Diabetes mellitus with nephropathy Annual visit for general adult medical examination with abnormal findings section wound complications Encounter to establish care Type II diabetes mellitus Diabetes COPD (chronic obstructive pulmonary disease) Surgical History History of above-knee amputation of right lower extremity H/O neck surgery History of mandibular surgery H/O foot surgery H/O hernia repair H/O section H/O angioplasty History of hysterectomy History of colonoscopy History of laparoscopic adjustable gastric banding S/P bilateral breast reduction S/P carpal tunnel release Status post cataract extraction Family History Sister Breast cancer Mother Breast cancer Substance use disorder Mental health disorder Brother Substance use disorder Brother Substance use disorder Sister No problems noted. 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 Cognitive needs: Yes Hearing needs: No Vision needs: Yes (Glaucoma and cataracts being treated) Review of Systems Const Details: right AKA All systems reviewed & are unremarkable except as noted in HPI and below ENT Denies dizziness Card Denies chest pain, Denies chest pain at rest, Denies chest pain with activity, Denies rapid heart rate, Denies pedal edema, Denies edema, Denies leg edema, Denies lightheadedness, Denies palpitations, Denies dyspnea, Reports dyspnea on exertion and Denies orthopnea Resp Denies cough, Denies dyspnea and Reports dyspnea on exertion GI Denies hematochezia and Denies change in stool character Musc Details: in wheelchair Reports abnormal gait, Denies limited range of motion, Denies muscle cramps, Denies muscle weakness, Denies numbness, Denies radiating pain into limb, Denies stiffness and Denies tingling Neuro Reports abnormal gait, Denies dizziness, Denies numbness and Denies tingling Endo Denies palpitations Physical Exam Vital Signs: Last Vital Signs Pulse 81 12/19/24 09:37 BP 120/52 L 12/19/24 09:37 BMI result Body Mass Index 24.3 Const Other: sitting in wheelchair General: cooperative, healthy appearing, comfortable and no acute distress Orientation/consciousness: patient oriented x3 Neck Neck: Yes normal visual inspection and Yes no JVD Resp Effort & Inspection: normal respiratory effort Auscultation: clear to auscultation bilaterally, no rales, no rhonchi and no wheezes Cardio Rate: regular rate Rhythm: regular rhythm Heart sounds: S1 normal heart sound present, S2 normal heart sound present, no murmurs and no rubs Neuro General: patient oriented x3 Extrem Other: right AKA General: No no pedal edema and No calf tenderness Psych Appearance: grossly normal Mental Status: mental status grossly normal Speech and movement: Normal speech and movement present Assessment & Plan Assessment & Plan (1) Abnormal nuclear stress test: Code(s): R94.39 - Abnormal result of other cardiovascular function study Category: Medical Plan: Patient with multiple cardiac risk factors including hypertension, hyperlipidemia, diabetes, smoking, peripheral artery disease who has undergone cardiac evaluation to assess for CAD. She has no chest discomfort but is mostly sedentary. Her EKGs show no ischemic findings or findings of prior OK. Echocardiogram 03/10/2024 showing EF 56%, mild calcification of the aortic valve, moderate mitral annular calcification. A nuclear stress test done on 03/10/2024 shows inferior and inferior septal ischemia, EF 45% although visually appears higher. A CTA of the coronary arteries was scheduled and on the day of the test her BP was too low for them to proceed. On last visit she did not want to pursue the CTA. Today she is asking when it will be rescheduled. She likely has CAD and ischemia could be masked since she is sedentary. Will order CTA of coronary arteries to assess for CAD and any high degree stenosis. BMP prior to test. Continue aspirin. Can you high-dose atorvastatin with ideal LDL goal less than 70. Signs and symptoms of angina discussed. Emergency care if ever needed. Plan to call her with results. Cardiology office visit 6 months, sooner if needed. (2) Essential hypertension: Code(s): I10 - Essential (primary) hypertension Category: Medical Plan: Normal range today, 120/52. Continue low-dose lisinopril. (3) Hyperlipidemia: Code(s): E78.5 - Hyperlipidemia, unspecified Category: Medical Qualifiers: Hyperlipidemia type: mixed hyperlipidemia Qualified Code(s): E78.2 - Mixed hyperlipidemia Plan: [place] LDL goal less than 70 in patient with diabetes, PAD and presumed CAD. Labs done 06/01/2024 showing LDL 29. Continue atorvastatin 80 mg daily. (4) Peripheral vascular disease: Comment: ff;d at [facility] vascular clinic Code(s): I73.9 - Peripheral vascular disease, unspecified Category: Medical Plan: Right AKA. Follows with Dr. Chopra for vascular needs. Plan Time spent on chart review, documentation, interview and assessment Orders: Orders Basic Metabolic Panel Today R94.39 - Abnormal result of other cardiovascular function study CT Cardiac Coronary Angio Today R94.39 - Abnormal result of other cardiovascular function study Coding Level of Care Code Est Pt Level 4 (92829) Complex EM visit Add On G2211 Diagnoses Abnormal nuclear stress test R94.39 Essential hypertension I10 Mixed hyperlipidemia E78.2 Hyperlipidemia type: mixed hyperlipidemia Peripheral vascular disease I73.9 Time Spent (min) 28
--- OUTSIDE RECORDS SUMMARY | 2024-12-19 10:35 | XMS_ITS ---
Author Organization [facility] Address [address] [facility] [address] [place] [facility] [place] [address] Care Team Providers Care Sustainability Engineer Name Role Phone Bruce ANDREW, Anel Irene Primary Care Provider Un available Sheela Day Unavailable [phone] Jun Goss Unavailable Unavailable REASON FOR VISIT NS 09/04/2024 appt Encounters Encounter Location Date Provider Diagnosis [address] [address] 09/04/2024 Sheela Day Plan Of Treatment No Information Progress Notes * Shama ANAND ADOB:1965 (59 yo F)Acc No.[id number]:09/04/2024 Patient:?Shama ANAND :1965???Age:59 Y???Sex:Female Address:[address] [place] [address], [place], [address] * true * Date:? Generated for Printi ng/Fajuliag/eTransmitting on:?12/19/2024 10:35 AM EDT
--- OUTSIDE RECORDS SUMMARY | 2024-12-19 10:35 | XMS_ITS | Clinical Summary ---
Author Organization [facility] Address [address] [place] [address] Phone Care Team Providers Care Child Care Center Administrator Name Role Phone Jason Barrera MD Primary Care Provider [phone] Allergies Active Allergy Reactions Criticality Noted Date [...] Date Diagnosed Date Resolved Date Atherosclerosis of [place] ir[place] ar teries of the extremities 03/14/2023 08/08/2023 [...] Office Visit [facility] [address]. [address] [phone] Raymond Ahmadi MD [address] [address] Health Maintenance Due Date Last [...] 05/13/2022 Influenza Vaccine (#1) 2024 08/21/2018 Insurance [facility] ([id number]) [place] [id number] [facility] ([id number]) [place] [id number] Care Teams Child Care Center Administrator Relationship Specialty Start Date End Date Jason Barrera MD [facility] [place] [address] PCP - General Internal Medicine 05/11/22
--- OUTSIDE RECORDS SUMMARY | 2024-12-19 10:35 | XMS_ITS | Patient Health Record ---
Author Organization [facility] Address [address] [place] [address] Care Team Providers Care Travel Accommodation Inspector Name Role Phone Bruce ANDREW, Anel Irene Primary Care Provider Un available Shay Sheela Unavailable [phone] Jun Goss Unavailable Unavailable Allergies No Known [...] Polyneuropathy due to type 2 diabetes mellitus (062997323) Type 2 diabetes mellitus with diabetic polyneuropathy (E11.42) Active confirmed Problem Polyneuropathy due to diabetes mellitus type I (871536559) Type 1 diabetes mellitus with diabetic polyneuropathy (E10.42) Active confirmed Problem 64137112420304644 Atherosclerosi s of artery of both lower extremities (I70.203) Active confirmed Problem 56499106 Type 1 DM with polyneuropathy (E10.42) Active confirmed Problem 187141069 Critical limb ischemia of right lower extremity (I70.221) Active confirmed Vital Signs Height 5ft 2in in 05/22/2024 Weight 103 lbs 05/22/2024 BMI 18.84 kg/m2 05/22/2024 Encounters Encounter Location Date Provider Diagnosis [address] [address] 01/31/2024 Sheela Day Type 2 diabetes mellitus with diabetic polyneuropathy E11.42 ; Atherosclerosis of artery of both lower extremities I70.203 and Tinea unguium B35.[address] [address] 05/22/2024 Sheela Day Type 2 diabetes mellitus with diabetic polyneuropathy E11.42 and Atherosclerosis of artery of both lower extremities I70.203 [facility] [address] [place] [address] 01/17/2024 Sheela Day [address] [address] 04/14/2024 [facility] [place] [address] [place] [address] 08/03/2024 Sheela Day [facility] [address] [address] 09/04/2024 Sheela Day Assessments Encounter Date Diagnosis [...] Insured Coverage Start Date Coverage End Date [facility] SCO Claims [address] [place] [id number] Shama Reyes Self - patient is the [...]
--- OUTSIDE RECORDS SUMMARY | 2024-12-19 10:35 | XMS_ITS ---
Author Organization [facility] Care Team Providers Care Mail Service Coordinator Name Role Phone Emily Vila Unavailable Unavailable Lina Hanks Unavailable Unavailable Lara Berry Unavailable Unavailable Geraldine Lpoez Unavailable Unavailable Allergies and adverse reactions No Known Allergies Care Team Name Role Address Phone Organization Dates Lina Hanks PCP [address] [facility] [address], [place], [address], [place] (Office): [facility] 10/30/2023 - 11/01/2023 Emily Vila Attending Physician [address] [place] [address] [place] [address], [address], [place] (Office): [facility] 10/30/2023 - 11/01/2023 Lara Berry Attending Physician [address] [facility] [address], [place], [address], [place] (Office): [facility] 10/30/2023 - 11/01/2023 Geraldine Lopez Attending Physician [address] [place], [address], [place] (Office): [facility] 10/30/2023 - 11/01/2023 Immunizations Immunization Status Vaccine Details Vaccine Code CodeSystem Date Notes TB 2 Step Mantoux Skin Test completed tuberculin skin test; unspecified formulation lotNumber: [id number] expiry: 02/08/2024 Mfg: sanofi Pasteur Given 0.1 [...] 1 GASTRO-ESOPHAGEAL REFLUX DISEASE WITHOUT ESOPHAGITIS 10/30/[address] active 2 HYPERLIPIDEMIA, UNSPECIFIED 10/30/[address] active 3 OTHER DISORDER OF CIRCULATORY SYSTEM 10/30/[address] active 4 TYPE 2 DIABETES MELLITUS WITH DIABETIC NEPHROPATHY 10/30/[address] active 5 ATHEROSCLEROSIS OF [place] ARTERIES OF EXTREMITIES WITH REST PAIN, RIGHT LEG 10/29/[address] active 6 BIPOLAR DISORDER, UNSPECIFIED 10/29/[address] active 7 DIFFICULTY IN WALKING, NOT ELSEWHERE CLASSIFIED 10/29/[address] active 8 ENCOUNTER FOR SURGICAL AFTERCARE FOLLOWING SURGERY ON THE CIRCULATORY SYSTEM 10/29/[address] active 9 ESSENTIAL (PRIMARY) HYPERTENSION 10/29/[address] active 10 ROSSY'S DISEASE 10/29/[address] active 11 MUSCLE WEAKNESS (GENERALIZED) 10/29/[address] active 12 PERIPHERAL VASCULAR DISEASE, UNSPECIFIED 10/29/[address] active 13 PERSONAL HISTORY OF DIABETIC FOOT ULCER 10/29/[address] active 14 POST-TRAUMATIC STRESS DISORDER, UNSPECIFIED 10/29/[address] active 15 WEAKNESS 10/29/[address] active Reason for Referral No Reasons for Referral Entered Social History Social History Observation Description Start Date End Date Code Code System Current Smoking Status Tobacco smoking consumption unknown 257667884 SNOMED CT Sex Assigned At Female 1965 [address]48-1 [facility] Vital Signs Code Code System Vitals Name Values and Units Timing Information 75777-9 [facility] Pain Level Value=2.0 11/01/2023 9279-1 [facility] Respiratory Rate Value=18.0 Units=/m in 11/01/2023 8462-4 [facility] Blood Pressure-Diastolic Value=80 Un its=mmHg 11/01/2023 8480-6 [facility] Blood Pressure-Systolic Eszzh=319 Un its=mmHg 11/01/2023 8310-5 [facility] Body Temperature Value=98.6 Units=?? F 11/01/2023 8867-4 [facility] Heart rate Value=79.0 Units=/min 93789-4 [facility] O2 % [facility] Oximetry Value=96.0 Units= % 11/01/2023 2339-0 [facility] Blood Sugar Zunys=495.0 Units=mg/dL 11/01/2023 03442-6 [facility] Weight Auplm=458.4 Units=Lbs 8302-2 [facility] Height Value=62.0 Units=Inches 10/30/2023
--- OUTSIDE RECORDS SUMMARY | 2024-12-19 10:35 | XMS_ITS | Clinical Summary ---
Author Organization [facility] Address [address] [place] [address] Care Team Providers Care Embossing Press Operator Name Role Phone Bridgette Richmond DMD Primary Care Provider [phone] Source Comments PLEASE NOTE, if this patient [...] Plan of Treatment Not on file Insurance [facility] [place]ICA[place] DENTAL [facility] Care Teams Embossing Press Operator Relationship Specialty Start Date End Date Bridgette Richmond DMD [address] [place] [address] PCP - General 12/20/20
--- OUTSIDE RECORDS SUMMARY | 2024-12-19 10:36 | XMS_ITS ---
Author Organization [facility] Address [address] [facility] [place] [address] Care Team Providers Care Driller Portable Name Role Phone Bruce ANDREW, Anel Irene Primary Care Provider Un available Sheela Day Unavailable [phone] Jun Goss Unavailable Unavailable Encounters Encounter Location Date Provider Diagnosis [address] [address] 08/07/2024 Sheela Day Plan Of Treatment No Information Progress Notes * DUNGCARMENShama THOMPSON ADOB:1965 (59 yo F)Acc No.[id number]:08/07/2024 Progress Note Patient:Shama CALDWELL Provider:?Sheela Day DPM :1965???Age:59 Y???Sex:Female D ate:08/07/2024 Address:[address] [place], [place] [id number] Pcp:Suman Alas Subjective: * Chief Complaints: * ??? * Medical History:? Objective: * Vitals:? Assessment: Plan: * Treatment: * Images: * The named appointment provid er may or may not be the originator of this progress note, and it is not deemed complete until electronically signed by the appointment provider. Sign off status: Pending * Provider:?Sheela Day DPM Date:? Generated for Printi teri/Ricardo/eTransmitting on:?12/19/2024 10:35 AM EDT
--- OUTSIDE RECORDS SUMMARY | 2024-12-19 10:36 | XMS_ITS ---
Author Organization [facility] [place] Address [address] [facility] [place] [address] Care Team Providers Care Electrolysis Needle Operator Name Role Phone Bruce ANDREW, Anel Irene Primary Care Provider Un available Sheela Day Unavailable [phone] Jun Goss Unavailable Unavailable Encounters Encounter Location Date Provider Diagnosis [address] [address] 09/04/2024 Sheela Day Plan Of Treatment No Information Progress Notes * DUNGCARMENShama THOMPSON ADOB:1965 (59 yo F)Acc No.[id number]:09/04/2024 Progress Note Patient:Shama CALDWELL Provider:?Sheela Day DPM :1965???Age:59 Y???Sex:Female D ate:09/04/2024 Address:[address] [place], [place] [id number] Pcp:Suman Alas Subjective: * Chief Complaints: * [...]
== END 2024-12-19 10:09 | disposition home or self-care (01) ==
LOC: HO.HCS 09:27
PROVIDERS: PCP Internal Medicine; Visit Provider Nurse Practitioner Family
DX: R94.39 Abnormal result of other cardiovascular function study (principal); I10 Essential (primary) hypertension; E78.2 Mixed hyperlipidemia; I73.9 Peripheral vascular disease, unspecified
CPT/HCPCS: 99214; G2211

== ENCOUNTER → 2024-12-19 09:26 | Outpatient (BNVA) | payer OTHER, SELFPAY | PROVIDERS: PCP Internal Medicine; Visit Provider Nurse Practitioner Family | DX: R94.39 Abnormal result of other cardiovascular function study (principal); I10 Essential (primary) hypertension; I73.9 Peripheral vascular disease, unspecified; E78.2 Mixed hyperlipidemia; Z89.611 Acquired absence of right leg above knee; Z99.3 Dependence on wheelchair | CPT/HCPCS: 99212 ==

== ENCOUNTER 2025-02-26 09:02 | Outpatient (REF) | payer OTHER, SELFPAY ==
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
--- OUTSIDE RECORDS SUMMARY | 2025-02-26 09:17 | XMS_ITS | Clinical Summary ---
Author Organization [facility] Address [address] [facility] [address] [place] [address] Phone Care Team Providers Care Historical Guide Name Role Phone Jason Barrera MD Primary Care Provider [phone] Allergies Active Allergy Reactions Criticality Noted Date [...] Date Diagnosed Date Resolved Date Atherosclerosis of [place] ar teries of the extremities 03/14/2023 08/08/2023 [...] Office Visit [facility] [address]. [address] [phone] Raymond Ahmadi MD [address] [address] Health Maintenance Due Date Last Done Comments Breast Cancer Screening 1965 Hepatitis B Vaccine (1 of 3 - 19+ 3-dose series) 04/24 Pneumococcal Vaccine: 50+ Years (2 of 2 - PCV) 007 07/16/2006 Colorectal Cancer Screening: Annual FOBT 2014 Colorectal Cancer Screening: Colonoscopy 2014 Colorectal Cancer Screening: Sigmoidoscopy 2014 Diabetes: Hemoglobin A1C 05/13/2022 Diabetes: Ophthalmology Exam 05/13/2022 01/24/2009 Diabetes: Pedal Pulse Checked 05/13/2022 Diabetes: Sensory Foot Exam 05/13/2022 Diabetes: Visual Foot Exam 05/13/2022 Influenza Vaccine (Season Ended) 2025 08/21/20 18 Pneumococcal Vaccine: Peds ( 0 to 5 Years) and At-Risk Patients (6 to 49 Years) Discontinued 07/16/2006 Insurance [facility] ([id number]) [place] [id number] [facility] ([id number]) [place] [id number] Care Teams Historical Guide Relationship Specialty Start Date End Date Jason Barrera MD [address] [place] [address] PCP - General Internal Medicine 05/11/22
--- OUTSIDE RECORDS SUMMARY | 2025-02-26 09:17 | XMS_ITS | Data Portability ---
Author Organization [facility] Address [address] [place] [address] Care Team Providers Care Barbecue Cook Name Role Phone [facility] Referring Provider Assessment Encounter Date Assessment Date Assessment LastModified by Organization Details LastModified Time 11/08/2023 11/08/2023 As noted, we were called to see this patient regarding concerns of wound healing. Evaluation in the field was performed by my emt/paramedic colleague, as noted above, I provided real-time [...] SNOMED-CT Code Diagnosis ICD10 Code Diagnosis Note [id number] JOSE ROBERTO DUNCNA MD Main - [facility] [address] [place] [address] 11/08/2023 14:28:29 11/09/2023 10:52:40 Post-surgical wound care 344905636 Z48.01 Health Concerns Section Related Observation LastModified by Organization Detai ls LastModified Time None Recorded Concern Status LastModified by Organization Details LastModified Time None Recorded Advance Directives Directive None Recorded Payers Insurance Date Sequence Insurance Name Policy Number Policy Lane Covered Member ID Lane Member ID Guarantor Name 05/12/2024 1 [facility] - DOS ON OR AFTER 2023 - DUAL ELIGIBLE - LONG TERM OPTIONS AND ONE CARE (MEDICARE REPLACEMENT/ADV ANTAGE - HMO) Shama Amy [id number] Shama Reyes Notes Date Note Type Note [...] .................. .................. .................. .................. .................. .................. ............... Senior Patrol Agent Note From Willy Mac: Pt reports that [...] .................. ............... Disposition: Demi DUNCAN MD [address] [facility],[address], [place], [address], [facility] 11/08/2023 14:47:14 OBGyn Episode No OBEpisode recorded.
--- OUTSIDE RECORDS SUMMARY | 2025-02-26 09:17 | XMS_ITS ---
Author Organization [facility] Address [address] [facility] [address] [place] [address] Care Team Providers Care Information Technology Internship Name Role Phone Bruce ANDREW, Anel Irene Primary Care Provider Un available Sheela Day Unavailable [phone] Jun Goss Unavailable Unavailable REASON FOR VISIT NS 09/04/2024 appt Encounters Encounter Location Date Provider Diagnosis [address] [address] 09/04/2024 Sheela Day Plan Of Treatment No Information Progress Notes * Shama ANAND ADOB:1965 (59 yo F)Acc No.[id number]:09/04/2024 Patient:?Shama ANAND :1965???Age:59 Y???Sex:Female Address:[address] [place] [address], [place], [address] * true * Date:? Generated for Printi ng/Fajuliag/eTransmitting on:?02/26/2025 09:16 AM EDT
--- OUTSIDE RECORDS SUMMARY | 2025-02-26 09:17 | XMS_ITS ---
Author Organization [facility] [place] Address [address] [facility] [place] [address] Care Team Providers Care Sewing Techniques Demonstrator Name Role Phone Bruce ANDREW, Anel Irene Primary Care Provider Un available Sheela Day Unavailable [phone] Jun Goss Unavailable Unavailable Encounters Encounter Location Date Provider Diagnosis [address] [address] 09/04/2024 Sheela Day Plan Of Treatment No Information Progress Notes * Shama ANAND ADOB:1965 (59 yo F)Acc No.[id number]:09/04/2024 Progress Note Patient:Shama CALDWELL Provider:?Sheela Day DPM :1965???Age:59 Y???Sex:Female D ate:09/04/2024 Address:[address] [place], [place] [phone] Pcp:Suman Alas Subjective: * Chief Complaints: * ??? * Medical History:? Objective: * Vitals:? Assessment: Plan: * Treatment: * Images: * The named appointment provid er may or may not be the originator of this progress note, and it is not deemed complete until electronically signed by the appointment provider. Sign off status: Pending * Provider:?Sheela Day DPM Date:? Generated for Printi teri/Faruthann/eTransmitting on:?02/26/2025 09:17 AM EDT
--- OUTSIDE RECORDS SUMMARY | 2025-02-26 09:17 | XMS_ITS ---
Author Organization [facility] [place] Address [address] [facility] [place] [address] Care Team Providers Care Contact Lens Flashing Puncher Name Role Phone Bruce ANDREW, Anel Irene Primary Care Provider Un available Sheela Day Unavailable [phone] Jun Goss Unavailable Unavailable Encounters Encounter Location Date Provider Diagnosis [address] [address] 08/07/2024 Sheela Day Plan Of Treatment No Information Progress Notes * Shama ANAND ADOB:1965 (59 yo F)Acc No.[id number]:08/07/2024 Progress Note Patient:Shama CALDWELL Provider:?Sheela Day DPM :1965???Age:59 Y???Sex:Female D ate:08/07/2024 Address:[address] [place], [place] [phone] Pcp:Suman Alas Subjective: * Chief Complaints: * ??? * Medical History:? Objective: * Vitals:? Assessment: Plan: * Treatment: * Images: * The named appointment provid er may or may not be the originator of this progress note, and it is not deemed complete until electronically signed by the appointment provider. Sign off status: Pending * Provider:?Sheela Day DPM Date:? Generated for Printi teri/Ricardo/eTransmitting on:?02/26/2025 09:16 AM EDT
[2025-02-26 10:05] LABS: MANUAL DIFF FLAG NO
[2025-02-26 10:35] LABS: Basophils Absolute Auto 0.1 X10*3/uL (0.0-0.2); Basophils Percent Auto 0.8 % (0-2); Eosinophils Absolute Auto 0.2 X10*3/uL (0.0-0.4); Eosinophils Percent Auto 2.8 % (0-4); Hematocrit 32.5 % (37.0-47.0); Hemoglobin 10.3 g/dl (12.0-16.0); Imm Gran Abs Auto 0.02 X10*3/uL (0.00-0.03); Imm Gran Pct Auto 0.3 % (0.0-0.4); Lymphocytes Absolute Auto 2.9 X10*3/uL (1.2-4.9); Lymphocytes Percent Auto 41.3 % (20-40); Mean Corpuscular HGB Conc 31.7 g/dl (31.0-35.0); Mean Corpuscular Hemoglobin 28.8 pg (27.0-33.0); Mean Corpuscular Volume 90.8 fL (80.0-98.0); Mean Platelet Volume 10.7 fL (9.4-12.3); Monocytes Absolute Auto 0.3 X10*3/uL (0.1-1.2); Monocytes Percent Auto 4.8 % (2-11); Neutrophils Absolute Auto 3.6 x10*3/uL (2.0-8.3); Platelet Count 309 X10*3/uL (160-400); Red Blood Count 3.58 X10*6/uL (4.20-5.50); Red Cell Distribution Width 14.6 % (11.0-16.0); White Blood Count 7.1 X10*3/uL (4.8-10.8)
[2025-02-26 11:15] LABS: Alanine Aminotransferase 33 U/L (0-31); Anion Gap 13 (12-20); Aspartate Amino Transferase 31 U/L (5-31); Blood Urea Nitrogen 17 mg/dL (9-16); Calcium 9.3 mg/dL (8.4-10.2); Carbon Dioxide 28 mmol/L (22-29); Chloride 101 mmol/L (96-108); Estimated Glomerular Filt Rate > 60; Glucose Random 187 mg/dL (60-115); Iron 64 mcg/dL (30-160); Percent Iron Saturation 25 % (15-50); Potassium 4.6 mmol/L (3.3-5.1); Sodium 137 mmol/L (135-145); Total Iron Binding Capacity 258 mcg/dL (228-428); Unsaturated Iron Binding 194 ug/dL
[2025-02-26 11:36] LABS: Vitamin D 25-OH Total 41.9 ng/mL (>30)
== END 2025-02-26 09:03 | disposition home or self-care (01) ==
LOC: HO.HMGCLDS 09:02
PROVIDERS: PCP Internal Medicine; Visit Provider Nurse Practitioner Family
DX: R94.39 Abnormal result of other cardiovascular function study (principal); I73.9 Peripheral vascular disease, unspecified; I10 Essential (primary) hypertension; E78.2 Mixed hyperlipidemia; D64.9 Anemia, unspecified
CPT/HCPCS: 36415; 80048; 82306; 83540; 84450; 84460; 85025

== ENCOUNTER 2025-04-04 15:25 | Outpatient (REF) | payer OTHER, SELFPAY ==
[2025-04-04 16:23] LABS: MANUAL DIFF FLAG NO
[2025-04-04 16:37] LABS: Prothrombin Time 11.9 SEC (10.9-12.4)
[2025-04-04 16:49] LABS: Anion Gap 17 (12-20); Blood Urea Nitrogen 13 mg/dL (9-16); Calcium 9.4 mg/dL (8.4-10.2); Carbon Dioxide 22 mmol/L (22-29); Chloride 105 mmol/L (96-108); Estimated Glomerular Filt Rate > 60; Glucose Random 158 mg/dL (60-115); Potassium 4.6 mmol/L (3.3-5.1); Sodium 139 mmol/L (135-145)
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
[2025-04-04 19:36] LABS: Basophils Absolute Auto 0.1 X10*3/uL (0.0-0.2); Basophils Percent Auto 0.9 % (0-2); Eosinophils Absolute Auto 0.2 X10*3/uL (0.0-0.4); Eosinophils Percent Auto 1.9 % (0-4); Hematocrit 31.3 % (37.0-47.0); Hemoglobin 9.9 g/dl (12.0-16.0); Imm Gran Abs Auto 0.02 X10*3/uL (0.00-0.03); Imm Gran Pct Auto 0.3 % (0.0-0.4); Lymphocytes Absolute Auto 2.2 X10*3/uL (1.2-4.9); Lymphocytes Percent Auto 28.1 % (20-40); Mean Corpuscular HGB Conc 31.6 g/dl (31.0-35.0); Mean Corpuscular Hemoglobin 29.3 pg (27.0-33.0); Mean Corpuscular Volume 92.6 fL (80.0-98.0); Mean Platelet Volume 11.4 fL (9.4-12.3); Monocytes Absolute Auto 0.4 X10*3/uL (0.1-1.2); Neutrophils Percent Auto 63.8 % (45-73); Platelet Count 282 X10*3/uL (160-400); Red Blood Count 3.38 X10*6/uL (4.20-5.50); Red Cell Distribution Width 14.8 % (11.0-16.0); White Blood Count 7.9 X10*3/uL (4.8-10.8)
== END 2025-04-04 15:26 | disposition home or self-care (01) ==
LOC: HO.HMGCLDS 15:25
PROVIDERS: PCP Internal Medicine; Visit Provider Nurse Practitioner Family
DX: I25.10 Atherosclerotic heart disease of native coronary artery without angina pectoris (principal); R06.02 Shortness of breath; I73.9 Peripheral vascular disease, unspecified
CPT/HCPCS: 36415; 80048; 85025; 85610

== ENCOUNTER → 2025-04-10 23:59 | Outpatient (BNV) | payer OTHER, SELFPAY | PROVIDERS: PCP Internal Medicine; Visit Provider Internal Medicine Cardiovascular Disease | DX: I20.89 Other forms of angina pectoris (principal); R93.1 Abnormal findings on diagnostic imaging of heart and coronary circulation | CPT/HCPCS: 92928; 93458; 93571; 93572; 99152 ==

== ENCOUNTER → 2025-04-12 23:59 | Outpatient (BNV) | payer OTHER, SELFPAY | PROVIDERS: PCP Internal Medicine; Visit Provider Internal Medicine Cardiovascular Disease | DX: T82.855A Stenosis of coronary artery stent, initial encounter (principal); I21.4 Non-ST elevation (NSTEMI) myocardial infarction | CPT/HCPCS: 92928; 92973; 99152 ==

== ENCOUNTER 2025-06-14 13:30 | Outpatient (REF) | payer OTHER, SELFPAY ==
--- OUTSIDE RECORDS SUMMARY | 2025-06-14 15:54 | XMS_ITS | Clinical Summary ---
Author Organization [facility] 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 Posttraumatic stress disorder 10/29/2023 History of diabetic foot ulcer 10/29/2023 Peripheral arterial occlusive disease 08/08/2023 Dyslipidemia 08/08/2023 Harmful pattern of use of multiple substances Overview (07/28/2022): Using IV drugs as well as intranasal heroin and Xanax Anemia of chronic disease 09/07/2018 Overview (07/28/2022): Normal iron and b12 08/2018 Proteinuria, not otherwise specified 03/15/2018 Tobacco user 03/14/2018 Bipolar I disorder 02/25/2018 Hypertension 02/19/2009 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 Diabetes mellitus, not otherwise specified 10/01 Resolved Problems Problem Noted Date Diagnosed Date Resolved Date Amputated right lower limb above knee 02/25/2024 03/20/2025 Hyperlipidemia 10/30/2023 03/20/2025 Asthenia 10/29/2023 03/20/2025 Difficulty walking 10/29/2023 5 Muscle weakness 10/29/2023 03/20/2025 Pain at rest of right lower limb due to atherosclerosis 10/29/2023 03/20/2025 Postoperative care 10/29/2023 5 Cigarette smoker 08/08/2023 08/08/2023 03/20/2025 Diabetic on insulin 08/08/2023 08/08/2023 03/20/20 25 Atherosclerosis of [place] of the extremities 03/14/2023 08/08/2023 [...] urine drug screen see provider note 07/2108 Diabetic peripheral neuropathy 02/25/2018 03/20/2025 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 [address] [phone] Raymond Ahmadi MD from Last 3 Months Immunizations Immunization Administration Dates Next Due Hepatitis A 11/30/2019,09/28/2018 Influenza (IM) Preservative Free 014,08/25/2013,07/15/2012,11/05,08/21/2008,07/16/2006 Influenza, MDCK, PF, Quadrivalent 08/21/2018 Moderna SARS-COV-2 04/25/2022,,09/21/2021,03/13,02/10/2021,01/28/2021 Pneumococcal Polysaccharide 07/16/2006, 6 Tdap 03/27/2021,12/24/2008,12/24/2008 Tuberculin Skin Test; Unspec ified Formulation 10/30/2023 Family History Medical History Relation Comments Cancer [...] 08/12/2023 9:56 AM EDT Plan of Treatment Health Maintenance Due Date Last Done Comments Breast Cancer Screening 1965 Pneumococcal Vaccine: 50+ Years (3 of 3 - PCV) 07/16/2007 07/16/2006, 07/16/2006 Colorectal Cancer Screening: Annual FOBT 2014 Colorectal Cancer Screening: Colonoscopy 2014 Colorectal Cancer Screening: Sigmoidoscopy 2014 Diabetes: Hemoglobin A1C 05/13/2022 Diabetes: Ophthalmology Exam 05/13/2022 01/24/2009 Diabetes: Pedal Pulse Checked 05/13/2022 Diabetes: Sensory Foot Exam 05/13/2022 Diabetes: Visual Foot Exam 05/13/2022 Influenza Vaccine (#1) 2025 8, 08/24/2014, 08/25/2013, Additional history exists Pneumococcal Vaccine: Peds (0 to 5 Years) and At-Risk Patients (6 to 49 Years) Discontinued 07/16/2006, 07/16/2006 Hepatitis B Vaccine Aged Out No longe r eligible based on patient's age to complete this topic Insurance MCR ([id number]) [place] [id number] [facility] ([id number]) [facility] One Care Dual SNP ([id number]) Care Teams Headwaitress Relationship Specialty Start Date End Date Jason Barrera MD [address] [place] [address] PCP - General Internal Medicine 05/11/22
[2025-06-14 16:04] LABS: MANUAL DIFF FLAG NO
[2025-06-14 16:20] LABS: Hematocrit 28.3 % (37.0-47.0); Hemoglobin 8.7 g/dl (12.0-16.0); Imm Gran Abs Auto 0.03 X10*3/uL (0.00-0.03); Imm Gran Pct Auto 0.4 % (0.0-0.4); Lymphocytes Absolute Auto 2.3 X10*3/uL (1.2-4.9); Mean Corpuscular HGB Conc 30.7 g/dl (31.0-35.0); Mean Corpuscular Hemoglobin 28.2 pg (27.0-33.0); Mean Corpuscular Volume 91.6 fL (80.0-98.0); NRBC Abs Auto 0.000 X10*3/uL (0.0-0.012); NRBC Pct Auto 0.0 /100WBC (0.0-0.2); Platelet Count 446 X10*3/uL (160-400); Red Blood Count 3.09 X10*6/uL (4.20-5.50); White Blood Count 7.8 X10*3/uL (4.8-10.8)
== END 2025-06-14 13:31 | disposition home or self-care (01) ==
LOC: HO.HMGCLDS 13:30
PROVIDERS: PCP Internal Medicine; Visit Provider Physician Assistant
DX: Z09 Encounter for follow-up examination after completed treatment for conditions other than malignant neoplasm (principal); D64.9 Anemia, unspecified; Z86.73 Personal history of transient ischemic attack (TIA), and cerebral infarction without residual deficits
CPT/HCPCS: 36415; 85025; 99212

== ENCOUNTER 2025-06-14 13:30 | Outpatient (AMB) | payer OTHER, SELFPAY ==
--- OUTSIDE RECORDS SUMMARY | 2024-04-10 09:00 | XMS_ITS ---
Author Organization [facility] Address [address] [facility] [place] [place] [address] Care Team Providers Care Vertical Mill Operator Name Role Phone Bruce ANDREW, Anel Irene Primary Care Provider Un available Sheela Day Unavailable [phone] Jun Goss Unavailable Unavailable REASON FOR VISIT DR HOLLIS Encounters Encounter Location Date Provider Diagnosis [address] [address] 04/10/2024 Sheela Day Plan Of Treatment No Information Progress Notes * Shama ANAND ADOB:1965 (60 yo F)Acc No.[id number]:04/10/2024 Progress Note Patient: Shama ARTEAGA Provider: Shukri Day DPM :1965 A ge:58 Y S ex:Female Date:04/10/2024 Address:[address] [place], [place] [phone] Pcp:Suman Alas Subjective: * Chief Complaints: * [...] 04/10/2024 Generated for Printi ng/Faxing/eTransmitting on: 0 06/14/2025 02:46 PM EDT
--- OUTSIDE RECORDS SUMMARY | 2024-04-17 06:00 | XMS_ITS ---
Author Organization [facility] Address [address] [facility] [place] [address] Care Team Providers Care Aircraft Engine Specialist Name Role Phone Bruce ANDREW, Anel Irene Primary Care Provider Un available Sheela Day Unavailable [phone] Jun Goss Unavailable Unavailable Encounters Encounter Location Date Provider Diagnosis [address] [address] 04/17/2024 Sheela Day Plan Of Treatment No Information Progress Notes * Shama ANAND ADOB:1965 (60 yo F)Acc No.[id number]:04/17/2024 Progress Note Patient: Shama ARTEAGA Provider: Shukri Day DPM :1965 A ge:58 Y S ex:Female Date:04/17/2024 Address:[address] [place], [place] [phone] Pcp:Sumna Alas Subjective: * Chief Complaints: * * Medical History: Objective: * Vitals: Assessment: Plan: * Treatment: * Images: * The named appointment provid er may or may not be the originator of this progress note, and it is not deemed complete until electronically signed by the appointment provider. Sign off status: Pending * Provider: Shukri Day DPM Date: 04/17/2024 Generated for Madinai teri/Ricardo/eTransmitting on: 06/14/2025 02:48 PM EDT
--- OUTSIDE RECORDS SUMMARY | 2024-08-07 10:30 | XMS_ITS ---
Author Organization [facility] Address [address] [facility] [place] [address] Care Team Providers Care Benefit Authorizer Name Role Phone Bruce ANDREW, Anel Irene Primary Care Provider Un available Sheela Day Unavailable [phone] Jun Goss Unavailable Unavailable Encounters Encounter Location Date Provider Diagnosis [address] [address] 08/07/2024 Sheela Day Plan Of Treatment No Information Progress Notes * Shama ANAND ADOB:1965 (60 yo F)Acc No.[id number]:08/07/2024 Progress Note Patient: Shama ARTEAGA Provider: Shukri Day DPM :1965 A ge:59 Y S ex:Female Date:08/07/2024 Address:[address] [place], [place] [phone] Pcp:Suman Alas Subjective: * Chief Complaints: * * Medical History: Objective: * Vitals: Assessment: Plan: * Treatment: * Images: * The named appointment provid er may or may not be the originator of this progress note, and it is not deemed complete until electronically signed by the appointment provider. Sign off status: Pending * Provider: Shukri Day DPM Date: 1 Generated for Madinai teri/Ricardo/eTransmitting on: 0 06/14/2025 02:47 PM EDT
--- OUTSIDE RECORDS SUMMARY | 2024-09-04 09:00 | XMS_ITS ---
Author Organization [facility] Address [address] [facility] [place] [address] Care Team Providers Care Police Lieutenant Patrol Name Role Phone Bruce ANDREW, Anel Irene Primary Care Provider Un available Sheela Day Unavailable [phone] Jun Goss Unavailable Unavailable Encounters Encounter Location Date Provider Diagnosis [address] [address] 09/04/2024 Sheela Day Plan Of Treatment No Information Progress Notes * Shama ANAND ADOB:1965 (60 yo F)Acc No.[id number]:09/04/2024 Progress Note Patient: Shama ARTEAGA Provider: Shukri Day DPM :1965 A ge:59 Y S ex:Female Date:09/04/2024 Address:[address] [place], [place] [phone] Pcp:Suman Alas Subjective: * Chief Complaints: * * Medical History: Objective: * Vitals: Assessment: Plan: * Treatment: * Images: * The named appointment provid er may or may not be the originator of this progress note, and it is not deemed complete until electronically signed by the appointment provider. Sign off status: Pending * Provider: Shukri Day DPM Date: 1 11/04/2023 Generated for Madinai teri/Ricardo/eTransmitting on: 0 06/14/2025 02:47 PM EDT
--- OUTSIDE RECORDS SUMMARY | 2025-06-08 23:59 | XMS_ITS | Continuity of Care Document ---
Author Organization [facility] Address [address] [place] [id number]- Care Team Providers Care Aircraft Line Assembler Name Role Phone Bruce ANDREW, Anel Dunne Primary Care Physician [place] [facility] [place]25 [facility] [address] [place] [id number] Attending Physician: Marline Richter NP Admitting Physician: Marline Richter NP Referring Physician: Marline Richter NP Encounter Type: Pre-Outpt Allergies, Adverse Reactions, Alerts No Known Allergies Immunizations Given and Recorded Vaccine Date Status Refusal Reason SARS-CoV-2 (COVID-19) mRNA-1273 vaccine 04/25/22 R ecorded SARS-CoV-2 (COVID-19) mRNA-1273 vaccine 11/24/21 R ecorded SARS-CoV-2 (COVID-19) mRNA-1273 vaccine 09/21/21 R ecorded SARS-CoV-2 (COVID-19) mRNA-1273 vaccine 03/13/21 R ecorded SARS-CoV-2 (COVID-19) mRNA-1273 vaccine 02/10/21 R ecorded SARS-CoV-2 (COVID-19) mRNA-1273 vaccine 01/28/21 R ecorded influenza virus vaccine, inactivated 12/12/21 Chuy rded influenza virus vaccine, inactivated 08/21/18 Chuy rded influenza virus vaccine, inactivated 08/09/17 Chuy rded influenza virus vaccine, inactivated 08/24/14 Chuy rded influenza virus vaccine, inactivated 08/25/13 Chuy rded influenza virus vaccine, inactivated 07/15/12 Chuy rded influenza virus vaccine, inactivated 11/05/11 Chuy rded influenza virus vaccine, inactivated 08/21/08 Chuy rded influenza virus vaccine, inactivated 07/16/06 Chuy rded tetanus/diphtheria/pertussis, acel(Tdap) 03/27/21 Recorded tetanus/diphtheria/pertussis, acel(Tdap) 1 12/24/08 Given Hepatitis A Adult Vaccine 11/30/19 Recorded Hepatitis A Adult Vaccine 09/28/18 Recorded pneumococcal 23-valent vaccine 2 07/16/06 Given 1Admin Note: Previous PCP 2Admin Note: Previous PCP Medications Albuterol (Eqv-ProAir HFA) 90 mcg/inh inhalation aerosol 9 Gm, 0 Refill(s), 0 Refills, 05/12/24 3:04:00 PM EDT, Partial fill upon patient request if the prescription is for a schedule II opioid drug. Start Date: 05/12/24 Status: Ordered Medication Dispense Status: Completed Total Allowed Fills: 1 Fills Dispensed: 0 atorvastatin 80 mg oral tablet 1 tablet = 80 mg, By Mouth, Daily, # 30 tablet, 0 Refills, Maintenance, 05/11/25 12:46:00 PM EDT, Tablet, [facility] 3, Partial fill upon patient request if the prescription is for a schedule II opioid drug., 158, cm, 05/11/25 11:22:00 EDT, Height, 59.9, kg, 05/05/25 9:27:00 EDT, Dry Weight Start Date: 05/11/25 Stop Date: 06/10/25 Status: Ordered Medication Dispense Status: Completed Quantity: 30.0 Unit: tablet Total Allowed Fills: 1 Fills Dispensed: 0 buPROPion 300 mg/24 hours (XL) oral tablet, extended release 1 tablet = 300 mg, By Mouth, Daily, 0 Refills, Maintenance, 12/15/22 8:33:00 AM EST, Partial fill upon patient request if the prescription is for a schedule II opioid drug. Start Date: 12/15/22 Status: Ordered Medication Dispense Status: Completed Total Allowed Fills: 1 Fills Dispensed: 0 busPIRone 15 mg oral tablet 1 tablet = 15 mg, By Mouth, 2 times a day, 0 Refills, Maintenance, 12/15/22 8:33:00 AM EST, Partial fill upon patient request if the prescription is for a schedule II opioid drug. Start Date: 12/15/22 Status: Ordered Medication Dispense Status: Completed Total Allowed Fills: 1 Fills Dispensed: 0 Centrum Adults 1 tablet, By Mouth, Daily, Maintenance, 10/20/23 6:55:00 PM EST, Partial fill upon patient request if the prescription is for a schedule II opioid drug. Start Date: 10/20/23 Status: Ordered Medication Dispense Status: Completed Total Allowed Fills: 1 Fills Dispensed: 0 ferrous fumarate 324 mg oral tablet 30 each, 0 Refill(s), 0 Refills, 02/04/24 8:35:00 AM EDT, Partial fill upon patient request if the prescription is for a schedule II opioid drug. Start Date: 02/04/24 Status: Ordered Medication Dispense Status: Completed Total Allowed Fills: 1 Fills Dispensed: 0 Four-wheeled walker with a seat Four-wheeled walker with a seat, See 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, # 1 kit, Refills 0, Tot. Refills 0, Maintenance,Dx:, 02/24/24 4:51:00 PM EDT, Supply Start Date: 02/24/24 Status: Ordered Medication Dispense Status: Completed Quantity: 1.0 Unit: kit Total Allowed Fills: 1 Fills Dispensed: 0 Indications: Other specified postprocedural states; Acquired absence of right leg below knee; Humalog 100 u/ml subcutaneous injection = 5 units, Subcutaneous Injection, 3 times a day before meals, As directed per sliding scale, Maintenance, 10/20/23 6:53:00 PM EST, Partial fill upon patient request if the prescription is for a schedule II opioid drug. Start Date: 10/20/23 Status: Ordered Medication Dispense Status: Completed Total Allowed Fills: 1 Fills Dispensed: 0 hydrOXYzine hydrochloride 10 mg oral tablet 1 tablet = 10 mg, By Mouth, 2 times a day, PRN as needed for anxiety, 0 Refills, Maintenance, 12/15/22 8:33:00 AM EST, Partial fill upon patient request if the prescription is for a schedule II opioid drug. Start Date: 12/15/22 Status: Ordered Medication Dispense Status: Completed Total Allowed Fills: 1 Fills Dispensed: 0 Lantus Solostar Pen 100 units/mL subcutaneous solution = 10 units, Subcutaneous Injection, 15 mL, 0 Refill(s), 0 Refills, 02/04/24 8:35:00 AM EDT, Partial fill upon patient request if the prescription is for a schedule II opioid drug. Start Date: 02/04/24 Status: Ordered Medication Dispense Status: Completed Total Allowed Fills: 1 Fills Dispensed: 0 Lasix 40 mg oral tablet 40 mg, 1, tablet, By Mouth, Daily, # 90 tablet, Refills 0, Tot. Refills 0, Maintenance, 04/26/25 2:26:00 PM EDT, Route to Pharmacy Electronically, [facility], Partial fill upon patient request if the prescription is for a schedule II opioid drug., 158, cm, 04/26/25 11:18:00 EDT, Height, 60, kg, 04/21/25 19:23:00 EDT, Dry Weight Start Date: 04/26/25 Status: Ordered Medication Dispense Status: Completed Quantity: 90.0 Unit: tablet Total Allowed Fills: 1 Fills Dispensed: 0 metFORMIN 1000 mg oral tablet 1 tablet = 1,000 mg, By Mouth, 2 times a day, 0 Refills, Maintenance, 12/15/22 8:33:00 AM EST, Partial fill upon patient request if the prescription is for a schedule II opioid drug. Start Date: 12/15/22 Status: Ordered Medication Dispense Status: Completed Total Allowed Fills: 1 Fills Dispensed: 0 Metoprolol Succinate ER 25 mg oral tablet, extended release 25 mg, 1, tablet, By Mouth, Daily, # 30 tablet, Refills 2, Tot. Refills 2, Maintenance, 04/16/25 12:20:00 PM EDT, Route to Pharmacy Electronically, [facility], Partial fill upon patient request if the prescription is for a schedule II opioid drug., 163, cm, 04/16/25 7:17:00 EDT, Height,59, kg, 04/12/25 19:54:00 EDT, Dry Weight Start Date: 04/16/25 Stop Date: 07/15/25 Status: Ordered Medication Dispense Status: Completed Quantity: 30.0 Unit: tablet Total Allowed Fills: 3 Fills Dispensed: 0 MiraLax Powder 1 pack/packet = 17 Gm, By Mouth, Daily, 0 Refills, Maintenance, 12/10/23 10:31:00 AM EST, Powder, Partial fill upon patient request if the prescription is for a schedule II opioid drug. Start Date: 12/10/23 Status: Ordered Medication Dispense Status: Completed Total Allowed Fills: 1 Fills Dispensed: 0 naloxone 4 mg/0.1 mL nasal spray 2 each, 0 Refill(s), 0 Refills, 05/12/24 3:04:00 PM EDT, Partial fill upon patient request if the prescription is for a schedule II opioid drug. Start Date: 05/12/24 Status: Ordered Medication Dispense Status: Completed Total Allowed Fills: 1 Fills Dispensed: 0 pantoprazole 40 mg oral delayed release tablet = 40 mg, By Mouth, Daily before breakfast, # 90 tablet, 0 Refills, Maintenance, 04/26/25 2:26:00 PM EDT, EC Tablet, 158, cm, 04/26/25 11:18:00 EDT, Height, 60, kg, 04/21/25 19:23:00 EDT, Dry Weight Start Date: 04/26/25 Status: Ordered Medication Dispense Status: Completed Quantity: 90.0 Unit: tablet Total Allowed Fills: 1 Fills Dispensed: 0 right AKA stump explosive operator fuse right AKA stump explosive operator fuse, See 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, # 1 each, Refills 0, Tot. Refills 0, Maintenance, rightAKA stump explosive operator fuse, 02/25/24 11:55:00 AM EDT, Supply Start Date: 02/25/24 Status: Ordered Medication Dispense Status: Completed Quantity: 1.0 Unit: each Total Allowed Fills: 1 Fills Dispensed: 0 Indications: Complete traumatic amputation at level between right hip and knee, initial encounter; right AKA temporary prosthesis right AKA temporary prosthesis, See 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, # 1 each, Refills 0, Tot. Refills 0, Maintenance,right AKA temporary prosthesis, 02/25/24 11:56:00 AM EDT, Supply Start Date: 02/25/24 Status: Ordered Medication Dispense Status: Completed Quantity: 1.0 Unit: each Total Allowed Fills: 1 Fills Dispensed: 0 Indications: Complete traumatic amputation at level between right hip and knee, initial encounter; rOPINIRole 0.25 mg oral tablet 1 tablet = 0.25 mg, By Mouth, 2 times a day, 0 Refills, Maintenance, 12/15/22 8:33:00 AM EST, Partialfill upon patient request if the prescription is for a schedule II opioid drug. Start Date: 12/15/22 Status: Ordered Medication Dispense Status: Completed Total Allowed Fills: 1 Fills Dispensed: 0 ticagrelor 90 mg oral tablet 1 tablet = 90 mg, By Mouth, 2 times a day, refills by cardiology, # 60 tablet, 2 Refills, Maintenance, 04/16/25 12:20:00 PM EDT, Tablet, [facility] 3, Partial fill upon patient request if the prescription is for a schedule II opioid drug., 163, cm, 04/16/25 7:17:00 EDT, Height, 59, kg, 04/12/25 19:54:00 EDT, Dry Weight Start Date: 04/16/25 Stop Date: 07/15/25 Status: Ordered Medication Dispense Status: Completed Quantity: 60.0 Unit: tablet Total Allowed Fills: 3 Fills Dispensed: 0 traZODone 50 mg oral tablet 50 mg, 1, tablet, By Mouth, Daily at bedtime, Can increase to 1 tablet after 3 days if needed, # 15tablet, Refills 3, Maintenance, 04/18/25 12:10:00 AM EDT, Partial fill upon patient request if the prescription is for a schedule II opioid drug. Start Date: 04/18/25 Status: Ordered Medication Dispense Status: Completed Quantity: 15.0 Unit: tablet Total Allowed Fills: 1 Fills Dispensed: 0 Trulicity Pen 3 mg/0.5 mL subcutaneous solution 2 mL, 0 Refill(s), 0 Refills, 05/12/24 3:04:00 PM EDT, Partial fill upon patient request if the prescription is for a schedule II opioid drug. Start Date: 05/12/24 Status: Ordered Medication Dispense Status: Completed Total Allowed Fills: 1 Fills Dispensed: 0 Tums 500 mg oral tablet, chewable 500 mg, 1, tablet, Chew, Every 4 hours, PRN, Refills 0, Maintenance, Dyspepsia, 04/19/25 12:45:00 PMEDT, Partial fill upon patient request if the prescription is for a schedule II opioid drug. Start Date: 04/19/25 Status: Ordered Medication Dispense Status: Completed Total Allowed Fills: 1 Fills Dispensed: 0 Tylenol 325 mg oral tablet 975 mg, By Mouth, Every 6 hours, Refills 0, Maintenance, 12/10/23 10:28:00 AM EST, Partial fill upon patient request if the prescription is for a schedule II opioid drug. Start Date: 12/10/23 Status: Ordered Medication Dispense Status: Completed Total Allowed Fills: 1 Fills Dispensed: 0 Problem List Condition Confirmation Course Effective Dates Status Health Status Informant Benign essential hypertension Confirmed Active Bipolar disorder, NOS Confirmed Active CAD - Coronary artery disease Confirmed Active Cigarette smoker Confirmed Active Coronary artery stent thrombosis Confirmed Active CTS - Carpal tunnel syndrome Confirmed Active Insulin long-term use Confirmed Active GERD (gastroesophageal reflux disease) Confirmed Active H/O: section Confirmed Active H/O: hysterectomy Confirmed Active 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 Type: Cigarettes. Sex Female Sex Representation Female (finding) Patient Care team information Care Team Personnel Name: Jon Kerni Position: [facility] RN Member Role: Primary Care Nurse Name: Gail Hall RN Position: [facility] RN Member Role: Primary Care Nurse Name: Asuncion Sigala RN Position: [facility] HBO Wound Member Role: Primary Care Nurse Name: Christelle Valdes RN Position: [facility] SN RN Member Role: Primary Care Nurse Name: Denisa Ying RN Position: [facility] RN Member Role: Primary Care Nurse Name: Raymond Alberto MD Position: [facility] Renal MD Member Role: Lifetime Consulting Physician Address: [address] [place] [address] [facility] [address] Telecom: Name: Shreya Helton Position: [facility] RN Supv Member Role: Primary Care Nurse Name: Demi Guevara RN Position: [facility] Hospital Clothing Consultant Member Role: Primary Care Nurse Name: Anel Barrera MD Position: Reference Physician Member Role: PCP Address: [address] [place], [place] [address] Telecom: Name: Amilcar Massey RN Position: [facility] RN Member Role: Primary Care Nurse Name: Susie Willis RN Position: [facility] RN Member Role: Primary Care Nurse Name: Gus Dominguez RN Position: [facility] RN Member Role: Primary Care Nurse Name: Brittney Mcallister NP Position: [facility] Associate Professional Member Role: Lifetime Consulting Provider Address: [address] [place], [place] [address] [place], [place] [address] Telecom: Name: Vick Gordillo MD Position: [facility] Renal MD Member Role: Lifetime Consulting Physician Address: [address] [place], [place] [address] [place], [place] [address] Telecom: Name: Estefania Landaverde RN Position: [facility] RN Member Role: Primary Care Nurse Name: Trish Hill RN Position: [facility] RN Member Role: Primary Care Nurse Name: Gabino Lobo RN Position: [facility] ED RN W/OE and Tasks Member Role: Primary Care Nurse Name: Augustus Mcgraw RN Position: [facility] RN Supv Member Role: Primary Care Nurse Name: Neyda Tafoya RN Position: [facility] RN Member Role: Primary Care Nurse Name: Juan Escalona RN Position: [facility] RN Member Role: Primary Care Nurse Name: Haven Hermosillo Position: [facility] RN Member Role: Primary Care Nurse Name: Delmy Michaels RN Position: [facility] ED RN W/OE and Tasks Member Role: Primary Care Nurse Name: Tamera Montero RN Position: [facility] RN Member Role: Primary Care Nurse Name: Barbara Recio RN Position: [facility] RN Member Role: Primary Care Nurse Name: Sandra Wisdom RN Position: [facility] RN Member Role: Primary Care Nurse Name: Brian Dorsey RN Position: [facility] RN Member Role: Primary Care Nurse Name: Demetrio GOODWIN, Sole Position: [facility] RN Member Role: Primary Care Nurse Name: Celia Vizcaino RN Position: [facility] RN Member Role: Primary Care Nurse Care Team Related Persons Name: JR SUNSHINE Name: LIZA KHAN Name: FLAVIO ANAND Insurance Providers Guarantor name: JOHANNA WARE [facility] [email or web address] Plan Information #: 1 Payer: [facility] Payer Identifier: NA Member Number: [id number] Group Number: [id number] Subscriber Identifier: [id number] Relationship to Subscriber: self Coverage Type: Medicare Managed Care (Includes Medicare Advantage Plans) Coverage Verification Date: NA Telecom: NA Address: NA
--- OUTSIDE RECORDS SUMMARY | 2025-06-13 23:59 | XMS_ITS | Continuity of Care Document ---
Author Organization [facility] Address [address] [place] [address]- Care Team Providers Care Assistant Men'S Soccer Coach Name Role Phone Bruce ANDREW, Anel Dunne Primary Care Physician Encounter [facility] Date(s): 05/14/25 - 06/13/25 [facility] [address] [place] [id number]- Encounter Type: Triage Allergies, Adverse Reactions, Alerts No Known Allergies Immunizations Given and Recorded Vaccine Date Status Refusal Reason SARS-CoV-2 (COVID-19) mRNA-1273 vaccine 04/25/22 R ecorded SARS-CoV-2 (COVID-19) mRNA-1273 vaccine 11/24/21 R ecorded SARS-CoV-2 (COVID-19) mRNA-1273 vaccine 09/21/21 R ecorded SARS-CoV-2 (COVID-19) mRNA-1273 vaccine 03/13/21 R ecorded SARS-CoV-2 (COVID-19) mRNA-1273 vaccine 02/10/21 R ecorded SARS-CoV-2 (COVID-19) mRNA-1273 vaccine 01/28/21 R ecorded influenza virus vaccine, inactivated 09/21/21 Chuy rded influenza virus vaccine, inactivated 08/21/18 [...] Refills, Maintenance, 05/11/25 12:46:00 PM EDT, Tablet, [facility] 3, Partial fill upon patient request [...] 2:26:00 PM EDT, Route to Pharmacy Electronically, [facility], Partial fill upon patient request if [...] 12:20:00 PM EDT, Route to Pharmacy Electronically, [facility], Partial fill upon patient request if [...] 1 Fills Dispensed: 0 right AKA stump education general manager right AKA stump education general manager, See 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, # 1 each, Refills 0, Tot. Refills 0, Maintenance, rightAKA stump education general manager, 02/25/24 11:55:00 AM EDT, Supply Start Date: [...] Refills, Maintenance, 04/16/25 12:20:00 PM EDT, Tablet, [facility], Partial fill upon patient [...] Confirmed Active NSTEMI - Non-ST segment elevation [place] Confirmed Active Peripheral arterial disease Confirmed Active PTSD (post-traumatic stress disorder) Confirmed Active Type 2 diabetes mellitus with neurological manifestations Confirmed Active Social History Social History Type Response Tobacco Use: 4 or less cigar ettes(less than 1/4 pack)/day in last 30 days. Type: Cigarettes. Sex Female Sex Representation Female (finding) Patient Care team information Care Team Personnel Name: Jennifer Kern Position: [facility] RN Member Role: Primary Care Nurse Name: Gail Hall RN Position: [facility] RN Member Role: Primary Care Nurse Name: Asuncion Sigala RN Position: [facility] HBO Wound Member Role: Primary Care Nurse Name: Christelle Valdes RN Position: [facility] SN RN Member Role: Primary Care Nurse Name: Denisa Ying RN Position: [facility] RN Member Role: Primary Care Nurse Name: Raymond Alberto MD Position: [facility] Renal MD Member Role: Lifetime Consulting Physician Address: [address] [place] [address] [address] [facility] [address] Telecom: Name: Shreya Helton Position: [facility] RN Supv Member Role: Primary Care Nurse Name: Demi Guevara RN Position: [facility] Hospital Privacy Director Member Role: Primary Care Nurse Name: Anel Barrera MD Position: Reference Physician Member Role: PCP Address: [address] [place] [address]- Telecom: Name: Amilcar Massey RN Position: S RN Member Role: Primary Care Nurse Name: Susie Willis RN Position: S RN Member Role: Primary Care Nurse Name: Gus Dominguez RN Position: [facility] RN Member Role: Primary Care Nurse Name: Chaz Mcallister NP Position: [facility] Associate Professional Member Role: Lifetime Consulting Provider Address: [address] [place] [address] [address] [facility] [place] [address]- Telecom: Name: Vick Gordillo MD Position: [facility] Renal MD Member Role: Lifetime Consulting Physician Address: [address] [place], [place] [address] [place] [address]- Telecom: Name: Estefania Landaverde RN Position: [facility] RN Member Role: Primary Care Nurse Name: Trish Hill RN Position: [facility] RN Member Role: Primary Care Nurse Name: Gabino Lobo RN Position: [facility] ED RN W/OE and Tasks Member Role: Primary Care Nurse Name: Augustus Mcgraw RN Position: [facility] RN Supnighat Member Role: Primary Care Nurse Name: Neyda Tafoya RN Position: [facility] RN Member Role: Primary Care Nurse Name: Juan Escalona RN Position: [facility] RN Member Role: Primary Care Nurse Name: Haven Hermosillo Position: [facility] RN Member Role: Primary Care Nurse Name: Delmy Michaels RN Position: [facility] ED RN W/OE and Tasks Member Role: Primary Care Nurse Name: Tamera Montero RN Position: [facility] RN Member Role: Primary Care Nurse Name: Barbara Recio RN Position: [facility] RN Member Role: Primary Care Nurse Name: Sandra Wisdom RN Position: [facility] RN Member Role: Primary Care Nurse Name: Brian Dorsey RN Position: [facility] RN Member Role: Primary Care Nurse Name: Sole Atkinson RN Position: [facility] RN Member Role: Primary Care Nurse Name: Celia Vizcaino RN Position: [facility] RN Member Role: Primary Care Nurse Care Team Related Persons Name: JR SUNSHINE Name: LIZA KHAN Name: FLAVIO ANAND Insurance Providers Guarantor name: JOHANNA WARE [employer]AZ [employer] Plan Information #: 1 Payer: [facility] Payer Identifier: NA Member Number: [id number] Group Number: [id number] Subscriber Identifier: NA Relationship to Subscriber: self Coverage Type: Medicare Managed Care (Includes Medicare Advantage Plans) Coverage Verification Date: NA Telecom: NA Address: NA
[2025-06-14 13:50] VITALS: BP 110/60; PULSE 80; O2SAT 96
--- NOTE | 2025-06-14 13:50 | MHC.PC.OV ---
Vital Signs 06/14/25 13:50 Height 5 ft 2 in BMI Reason not done Patient refused/unable BP 110/60 Blood Pressure Location Lt brachial Position Sitting Pulse 80 Pulse Source Pulse Oximeter Pulse Oximetry (%) 96 Oxygen Delivery Method Room Air Intake Visit Reasons: HDF, chhaya (notes scanned) Allergies No Known Allergies Allergy (Verified 06/14/25 13:50) Tobacco use date assessed: 12/18/24 Dental Screening Dental Screen Date: 12/18/24 HPI HPI Comments History of Present Illness Details Patient is a 60-year-old female here for hospital discharge follow-up from [facility]. She has a past medical history of HTN, HLD, DM2, CAD with a recent NSTEMI and ED placement on the right RCA on 04/10/2025 complicated by stent thrombosis requiring thrombectomy and ED to OM1 on 04/12/2025, HFrEF with an EF 36%, PVD s/p right AKA May 2023, COPD and GERD who had a hospitalization from April 21 to the April 26 for a left lower extremity ischemia with an iliofemoral thrombectomy and left femoral endarterectomy. On May 04, she went to [facility] after she was found altered by her visiting nurse at home. Her MRI brain on 05/08/2025 showed acute left cerebellar infarct with hemorrhagic transformation, associated edema and mass effect with partial effacement of the 4th ventricle, additional scattered punctate acute infarcts in the bilateral parietal and occipital lobes. CT of the head the next day showed unchanged appearance of the left cerebellar hemisphere infarct with no new intracranial abnormality as well as a stable 0.8 cm possible calcified meningioma along the right parietal convexity. Cardiology was consulted and they recommended continuing Brilinta but discontinuing aspirin and subQ heparin. Neurology recommended holding anticoagulation for 2 weeks post stroke and she was cleared to restart Xarelto after 05/22/2025. She completed a 5 day course of antibiotics for suspected pneumonia and wound infection at the site of the femoral thrombectomy and vascular surgery was consulted. There was a left lower extremity venous Doppler on May 15 that showed a 2.7 cm probable postop seroma near the junction of the proximal greater saphenous vein and the femoral vein. She also had some right lower quadrant abdominal pain so she had a CT of the abdomen and pelvis on May 11 that showed findings consistent with a large splenic infarct and bilateral renal infarcts which were new as compared to a 04/21/2025 exam and appendicitis was ruled out. She also had some fecal incontinence during her admission so Neurology recommended an MRI lumbar spine to rule out cauda equina syndrome. An MRI of the lumbar spine on 05/12/2025 showed degenerative changes at L4-L5 with gallbladder wall thickening and incompletely imaged bilateral renal infarcts which were better as compared to the CT scan the prior day. 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 She was discharged home on 05/25/25 with VNA for bandage changes, PT, OT and speech twice a week - she is trying to get a home health aid. Overall, she is feeling better every day. She has a lot of family around for support. She has had no more RLQ abdominal pain and no abnormal urinary symptoms though she doesn't remember having any symptoms. She denies fevers. She is taking 40mg lasix daily, still has leg swelling, used TEDS, she is having shortness of breath that started around 05/20 but [facility] ruled out any fluid in her lungs or around her heart and she was told it was psychosomatic. She says her O2 levels are 99% as well. She is spending more time in her wheelchair than typical. She says her prosthetic doesn't fit properly and she is going for an adjustment on 06/21. She feels well and states her cognitive function is fine. She has very little memory of the hospitalization but feels fine now. Sometimes foggy but she keeps lists and calendars and stays organized. Her paperwork shows they DC'd her ISS but she is still using it, as she should, with her Lantus and Glipizide. Her blood sugars have been a little up and down, wears her Dexcom, needs to get back into her routine after spending 6 weeks in bed. She is meeting with [facility] soon to discuss insulin pumps. She can get very low and isn't always aware but her kids monitor her on the Dexcom so they will call her. she also has a fall button on her wrist. She has follow ups with Vasular surgery, cardiology, neurology and GI. She is asking about her anemia, denies any bleeding but was told her levels were low at [facility]. [facility] Medical History (Updated 06/14/25 @ 14:58 by Nallely Gutierrez PA-C) History of opioid abuse Depression with anxiety Peripheral vascular disease Essential hypertension Cigarette smoker motivated to quit Uncontrolled type 2 diabetes mellitus with hyperglycemia Diabetes mellitus with nephropathy Annual visit for general adult medical examination with abnormal findings section wound complications Encounter to establish care Type II diabetes mellitus Diabetes COPD (chronic obstructive pulmonary disease) Surgical History History of above-knee amputation of right lower extremity H/O neck surgery History of mandibular surgery H/O foot surgery H/O hernia repair H/O section H/O angioplasty History of hysterectomy History of colonoscopy History of laparoscopic adjustable gastric banding S/P bilateral breast reduction S/P carpal tunnel release Status post cataract extraction Family History Sister Breast cancer Mother Breast cancer Substance use disorder Mental health disorder Brother Substance use disorder Brother Substance use disorder Sister No problems noted. 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 1. Little interest or pleasure in doing things: several days 2. Feeling down, depressed, or hopeless: several days 3. Trouble falling or staying asleep, or sleeping too much: several days 4. Feeling tired or having little energy: several days 5. Poor appetite or overeating: several days 6. Feeling bad about yourself - or that you are a failure or have let yourself or your family down: several days 7. Trouble concentrating on things, such as reading the newspaper or watching television: several days 8. Moving or speaking so slowly that other people could have noticed. Or the opposite - being so fidgety or restless that you have been moving around a lot more than usual: several days 9. Thoughts that you would be better off or of hurting yourself in some way: several days Total score: 9 Depression Screening Interpretation: Positive (Currently being treated by [facility]) Depression Screening Follow-up: Existing condition, In treatment and Community Mental Health Worker F/U Depression Screening Done: Yes Source: Developed by Drs. Jun Ceja, Sergey Villaseñor and colleagues, with an educational dakota from [employer]. Thrive Questionnaire Date Thrive assessed: 12/12/24 I am a: Patient What is your living situation today?: I have a steady place to live Within the past 12 months, did the food you bought not last and you didn't have the money to get more?: Never true Within the past 12 months, did you worry whether your food would run out before you got money to buy more?: Never true Do you have trouble paying for medicines?: No Do you have trouble getting transportation to medical appointments?: No Do you have trouble paying your heating and electricity bill?: I choose not to answer this question Do you have trouble taking care of your child, family member or friend?: No Do you have trouble with day-to-day activities such as bathing, preparing meals, shopping, managing finances, etc.?: Yes Are you currently unemployed and looking for a job?: No Are you interested in more education?: Yes Currently or been in a relationship where the following occur: I choose not to answer THRIVE Score: 0 STAS-7 AMB Questionnaire STAS-7 Date STAS - 7 assessed: 12/29/22 Source: Developed by Drs. Jun Ceja, Sergey Villaseñor and colleagues, with an educational dakota from [employer]. Review of Systems Const All systems reviewed & are unremarkable except as noted in HPI and below Physical exam (Primary Care) Vital Signs: Last Vital Signs Pulse 80 06/14/25 13:50 BP 110/60 06/14/25 13:50 Pulse Ox 96 06/14/25 13:50 Oxygen Delivery Method Room Air 06/14/25 13:50 Tobacco/Smoking Status: Tobacco use Status Tobacco use date assessed 12/18/24 06/14/25 14:03 Patient Tobacco Use Status Current someday Tobacco 06/14/25 14:03 Tobacco use type Cigarette 06/14/25 14:03 e-Cigarette/Vaping Use Never Used 06/14/25 14:03 PHQ-9: PHQ-9 Score PHQ-9: Total score 9 06/14/25 15:01 Depression Screening Interpretation: Positive (Currently being treated by [facility]) Depression Screening Follow-up: Existing condition, In treatment and Community Mental Health Worker F/U Thrive Assessment: Date of Thrive Assessment Date Thrive assessed 12/12/24 06/14/25 14:03 Currently or been in a relationship where the following occur: I choose not to answer Who was present: Patient Const General: cooperative and no acute distress Limitations: wheelchair HENMT Head: Yes normocephalic Mouth: oropharynx normal and moist mucous membranes Throat: Yes posterior oropharynx normal Eyes General: appearance normal, both eyes and all related structures Neck Neck: Yes normal visual inspection, Yes full ROM and Yes no lymphadenopathy Resp Effort & Inspection: normal respiratory effort and able to speak in complete sentences Extrem General: Yes full ROM, Yes amputation noted (right AKA) and Yes edema (trace LLE) Left lower extremity: no joint enlargement Psych Appearance: grossly normal and well kempt Mental Status: mental status grossly normal Speech and movement: Normal speech and movement present Affect: normal affect Attitude: cooperative Thought process: Normal thought process present Thought content: Normal thought content present Insight: Good insight present (Psych) Judgement: Good judgement present (Psych) Coding Level of Care Code Est Pt Level 5 (23881) Diagnoses Anemia, unspecified type D64.9 Anemia type: unspecified type Hospital discharge follow-up Z09 Acute CVA (cerebrovascular accident) I63.9 Assessment & Plan Assessment & Plan (1) Anemia: Code(s): D64.9 - Anemia, unspecified Category: Medical Qualifiers: Anemia type: unspecified type Qualified Code(s): D64.9 - Anemia, unspecified Plan: - will get CBC today to ensure stability (2) Hospital discharge follow-up: Code(s): Z09 - Encounter for follow-up examination after completed treatment for conditions other than malignant neoplasm Category: Medical Plan: - Continue to follow up, as scheduled, with Neurology, Cardiology, Vascular Surgery - Continue home PT, OT and speech - Continue all medications, as prescribed/changed from your discharge - Attend 06/21 appointment to adjust her prostatic so you can become more ambulatory outside of the wheelchair which should help your leg edema. -If you develop worsening shortness of breath, pls call our office. (3) Acute CVA (cerebrovascular accident): Code(s): I63.9 - Cerebral infarction, unspecified Category: Medical Plan: as above Orders: Orders Complete Blood Count Auto Diff Today D64.9 - Anemia, unspecified
--- OUTSIDE RECORDS SUMMARY | 2025-06-14 14:46 | XMS_ITS | Encounter Summary ---
Author Organization [facility] Address [address] [place] [address] Care Team Providers Care Industrial Services Worker Name Role Phone Community, Pcp Unavailable Unavailable Edith Wong MD Primary Care Provider Unavail able Monse Flores MD Primary Care Provider [phone] Encounter Details Date Type Department Care Team Description 03/17/2020 Pt. Non Urgent Medical Question Adult Medicine [address] [id number] Artur Burgos FNP [address] [place] [address] [id number] Social History Tobacco Use Types Packs/Day Years Used Date Smoking Tobacco: Former Cigarettes 0.5 40 S tarted: 1976 Smokeless Tobacco: Never Alcohol Use Standard Drinks/Week Comments No 0 (1 standard drink = 0.6 oz pur e alcohol) Sex Assigned at Date Recorded Female 06/11/2020 12:03 PM EDT Job Start Date Occupation Industry Not on file Not on file Not on file documented as of this encounter Miscellaneous Notes * Telephone Encounter - Ada Matias M.A. - 03/18/2020 9:16 AM EDTFrom: Shama Reyes To: TANJA Guerrier Sent: 03/17/2020 9:44 AM EDT Subject: test strips Get the ease of use and accuracy you expect from the [employer] family of products. FreeStyle Precision Rivera blood glucose test strips are available [id number]. Compatible with the FreeStyle Precision Rivera meter and the FreeStyle Bhavesh 14 day Flash Glucose Monitoring systems. https://Njini. TapMe/diabetes-management/freestyle-brand.html Can I have a prescription? It would be simpler than carrying back up meter around (in case reading seems different from how I feel) Shama Reyes [phone] documented in this encounter Plan of Treatment Not on file documented as of this encounter Visit Diagnoses Not on filedocumented in this encounter Care Teams Industrial Services Worker Relationship Specialty Start Date End Date Edith Wong MD PCP - General Internal Medicine 08/29/19 09/11/21 Monse Flores MD [address] [place] [id number] PCP - General Internal Medicine 09/12/21 [facility] Internal Medicine 11/23/17 documented as of this encounter
--- OUTSIDE RECORDS SUMMARY | 2025-06-14 14:46 | XMS_ITS | Encounter Summary ---
Author Organization [facility] Address [address] [place] [address] Care Team Providers Care Bleaching Machine Operator Name Role Phone Edith Wong MD Primary Care Provider Unavail able [facility], Pcp Unavailable Unavailable Khadar Armstrong MD Primary Care Provider Unavailab le Edith Wong MD Primary Care Provider Unavail able Lashell Villanueva MD Primary Care Provider Unav ailable Edith Wong MD Primary Care Provider Unavail able Monse Flores MD Primary Care Provider [phone] Reason for Visit * Reason Onset Date Comments Call From Hospital 04/06/2018 Encounter Details Date Type Department Care Team Description 04/06/2018 Telephone Adult [address] [address] Edith Wong MD Call From Hospital Social History Tobacco Use Types Packs/Day Years Used Date Smoking Tobacco: Every Day Cigarettes 1 40 Smokeless Tobacco: Never Alcohol Use Standard Drinks/Week Comments No 0 (1 standard drink = 0.6 oz pur e alcohol) Sex Assigned at Date Recorded Female 06/11/2020 12:03 PM EDT Job Start Date Occupation Industry Not on file Not on file Not on file documented as of this encounter Miscellaneous Notes * Telephone Encounter - Rowena Burr R.N. - 04/06/2018 10:45 AM EDT Pt presented at [facility] with altered mental status, low BS, positive for opiates and buprenorphine. She will be admitted , [place] [facility] last opiates were in 2016 * Telephone Encounter - Liana Abdoulayejuannettieabby - 04/06/2018 10:[address] Marshall from [facility] [place], [place] calling and asking what medications the patient is taking. Dr. Marshall's no. [phone] documented in this encounter Plan of Treatment Not on file documented as of this encounter Visit Diagnoses Not on filedocumented in this encounter Care Teams Bleaching Machine Operator Relationship Specialty Start Date End Date Edith Wong MD PCP - General Internal Medicine 11/23/17 10/16/18 Khadar Armstrong MD PCP - General Pediatrics 10/17/18 10/30/18 Edith Wong MD PCP - General Internal Medicine 10/31/18 03/28/19 Lashell Villanueva MD PCP - General Internal Medicine 03/29/19 9 Edith Wong MD PCP - General Internal Medicine 08/29/19 09/11/21 Monse Flores MD [address] [place] [address] PCP - General Internal Medicine 09/12/21 [facility] Internal Medicine 11/23/17 documented as of this encounter
--- OUTSIDE RECORDS SUMMARY | 2025-06-14 14:46 | XMS_ITS | Encounter Summary ---
Author Organization [facility] Address [address] [place] [address] Care Team Providers Care Dormitory Supervisor Name Role Phone Berta Denson MD Primary Care Provider Unavail able Community, Pcp Primary Care Provider Unavailabl Edith Friend MD Primary Care Provider Unavail able Community, Pcp Unavailable Unavailable Khadar Armstrong MD Primary Care Provider Unavailab le Edith Wong MD Primary Care Provider Unavail able Lashell Villanueva MD Primary Care Provider Unav ailable Edith Wong MD Primary Care Provider Unavail able Monse Flores MD Primary Care Provider [phone] Encounter Details Date Type Department Care Team Description 02/20/2015 Gang Boss Report Medical Records [address] [place] [address] Christiane Gamboa MD [address] [place] [id number] Social History Tobacco Use Types Packs/Day Years Used Date Smoking Tobacco: Some Days Cigarettes Last attempted to quit: 11/24/2010 Smokeless Tobacco: Never Alcohol Use Standard Drinks/Week Comments No 0 (1 standard drink = 0.6 oz pur e alcohol) Sex Assigned at Date Recorded Female 06/11/2020 12:03 PM EDT Job Start Date Occupation Industry Not on file Not on file Not on file documented as of this encounter Plan of Treatment Not on file documented as of this encounter Visit Diagnoses Not on filedocumented in this encounter Care Teams Dormitory Supervisor Relationship Specialty Start Date End Date Berta Denson MD PCP - General 12/17/04 01/14/16 Community, Pcp PCP - General Internal Medicine 01/15/16 11/22/17 Edith Wong MD PCP - General Internal Medicine 11/23/17 10/16/18 Khadar Armstrong MD PCP - General Pediatrics 10/17/18 10/30/18 Edith Wong MD PCP - General Internal Medicine 10/31/18 03/28/19 Lashell Villanueva MD PCP - General Internal Medicine 03/29/19 9 Edith Wong MD PCP - General Internal Medicine 08/29/19 09/11/21 Monse Flores MD [address] [place] [address] [id number] PCP - General Internal Medicine 09/12/21 [facility], Pcp Internal Medicine 11/23/17 documented as of this encounter
--- OUTSIDE RECORDS SUMMARY | 2025-06-14 14:46 | XMS_ITS | Encounter Summary ---
Author Organization [facility] Address [address] [place] [address] Care Team Providers Care Server Software Engineer Name Role Phone Berta Denson MD Primary [...] able Monse Flores MD Primary Care Provider [phone] Reason for Visit * Reason Comments other Encounter Details Date Type Department Care Team Description 01/06/2005 Telephone Adult Medicine [address] [address] Manuel Soni MD other Social History Tobacco Use Types Packs/Day Years Used Date Smoking Tobacco: Never Assessed Sex Assigned at Date Recorded Female 06/11/2020 12:03 PM EDT Job Start Date Occupation Industry Not on file Not on file Not on file documented as of this encounter Miscellaneous Notes * Telephone Encounter - 01/06/2005 1:13 PM ESTCALL RECEIVED. Contact: 01/06/05--We have made 3 attempts to contact this patient, but she has not returned our calls---referral sent back to stephy Gusman documented in this encounter Plan of Treatment Not on file documented as of this encounter Visit Diagnoses Not on filedocumented in this encounter Care Teams Server Software Engineer Relationship Specialty Start Date End Date Berta [...] Internal Medicine 08/29/19 09/11/21 Monse Flores MD [address] [place] [id number] PCP - General Internal Medicine 09/12/21 [facility], Pcp Internal Medicine 11/23/17 documented as of this encounter
--- OUTSIDE RECORDS SUMMARY | 2025-06-14 14:46 | XMS_ITS | Encounter Summary ---
Author Organization [facility] Address [address] [place] [address] Care Team Providers Care Urban Design Consultant Name Role Phone Community, Pcp Primary Care Provider Unavailabl Edith Friend MD Primary Care Provider Unavail able Community, Pcp Unavailable Unavailable Khadar Armstrong MD Primary Care Provider Unavailab le Edith Wong MD Primary Care Provider Unavail able Lashell Villanueva MD Primary Care Provider Unav ailable Edith Wong MD Primary Care Provider Unavail able Monse Flores MD Primary Care Provider [phone] Encounter Details Date Type Department Care Team Description 09/18/2016 Release of Information Medical Records [address] [place] [id number] Abstract, Provider Social History Tobacco Use Types Packs/Day Years [...] on filedocumented in this encounter Care Teams Urban Design Consultant Relationship Specialty Start Date End Date Community, Pcp PCP - General Internal Medicine 01/15/16 11/22/17 Edith Wong MD PCP - General Internal Medicine 11/23/17 10/16/18 Khadar Armstrong MD PCP - General Pediatrics 10/17/18 10/30/18 Edith Wong MD PCP - General Internal Medicine 10/31/18 03/28/19 Lashell Villanueva MD PCP - General Internal Medicine 03/29/19 9 Edith Wong MD PCP - General Internal Medicine 08/29/19 09/11/21 Monse Flores MD [address] [place] [id number] PCP - General Internal Medicine 09/12/21 [facility] 11/23/17 documented as of this encounter
--- OUTSIDE RECORDS SUMMARY | 2025-06-14 14:46 | XMS_ITS | Encounter Summary ---
Author Organization [facility] Address [address] [place] [address] Care Team Providers Care Associate Of Science In Nursing Name Role Phone Sha Wong MD Primary Care Provider Unavail able [facility], Pcp Unavailable Unavailable Khadar Armstrong MD Primary Care Provider Unavailab le Sha Wong MD Primary Care Provider Unavail able Lashell Villanueva MD Primary Care Provider Unav ailable Sha Wong MD Primary Care Provider Unavail able Monse Flores MD Primary Care Provider [phone] Reason for Visit * Reason Onset Date Comments APPOINTMENT 09/14/2018 Encounter Details Date Type Department Care Team Description 09/14/2018 Telephone Adult Medicine [address] [address] Sha Wong MD APPOINTMENT Social History Tobacco Use Types Packs/Day Years Used Date Smoking Tobacco: Some Days Cigarettes 0.5 40 Smokeless Tobacco: Never Alcohol Use Standard Drinks/Week Comments No 0 (1 standard drink = 0.6 oz pur e alcohol) Sex Assigned at Date Recorded Female 06/11/2020 12:03 PM EDT Job Start Date Occupation Industry Not on file Not on file Not on file documented as of this encounter Miscellaneous Notes * Telephone Encounter - Sha Wong MD - 09/14/2018 1:42 PM EST Thank you that is fine. * Telephone Encounter - Rowena Burr R.N. - 09/14/2018 1:41 PM EST This is the soonest pt can be seen in gi * Telephone Encounter - Ijeoma Coleman - 09/14/2018 1:40 PM EST Patient is scheduled for 09/27/18. (Nothing sooner) * Telephone Encounter - Rowena Burr R.N. - 09/14/2018 12:54 PM EST Will send to gi scheduling to see if she can be booked sooner the patient is aware that rx was sent * Telephone Encounter - Sha Wong MD - 09/14/2018 12:51 PM EST Can we get her in more urgently with GI. I will send through [facility] for pain control. * Telephone Encounter - Rowena Burr R.N. - 09/14/2018 12:34 PM EST Pt states she is having RUQ pain from her liver, she has had this pain for a long time ( since she was hospitalized ) there is no change in the pain, has no new complaints of N/V/D or fever, she is not dizzy or weak, taking po with no concerns, she states she had been taking tylenol for the pain but due to elevated LFT was advised to stop tylenol and was not sure what she can take instead Also wanted to let dr lnua know she is having eye surgery tomorrow and is taking prednisone eye drops * Telephone Encounter - Caroline Paige M.A. - 09/14/2018 12:24 PM EST Please triage, pt c/o pain asking pcp what she can take otc that won't affect her liver emzymes. Pt has physical scheduled with [facility] 10/10/18 * Telephone Encounter - Sha Wong MD - 09/14/2018 11:43 AM EST Where is her pain ? * Telephone Encounter - Olamide Timmons M.A. - 09/14/2018 9:52 AM EST Would you like the patient to follow up with you? She has a PE 10/10/2018 with [facility]. She said youwanted to see her this month for F/U . Patient is also wondering what she can take for pain due to her liver enzymes being elevated. Please advise thank you * Telephone Encounter - Iris Gonzalez - 09/14/2018 8:40 AM EST Caller requesting call back from provider:SHA LUNA Is the caller the patient? YES If caller is not the patient, what is the callers name? N/A Callers relationship to patient? N/A If person calling is not the patient themselves, is there a verbal release in FYI or permanent comments for this person: YES Reason for call back: The last time the patient saw Dr. Luna she wanted her to follow up around 10/03/18. She has a PE schedule with [facility] on 10/10/18. No available public slots with Dr. Luna around 10/03/18. Also patient would like to know if she can take advil for pain she is having since Dr. Luna told her to stop some medications due to elevated liver enzymes. Does she want her to have a follow up blood test to check liver? Caller offered to speak with the nurse for assistance: YES Response: Patient offered to speak with nurse for assistance and patient agreed. Message forwarded to nurse. documented in this encounter Plan of Treatment Not on file documented as of this encounter Visit Diagnoses Not on filedocumented in this encounter Care Teams Associate Of Science In Nursing Relationship Specialty Start Date End Date Sha Wong MD PCP - General Internal Medicine 11/23/17 10/16/18 Khadar Armstrong MD PCP - General Pediatrics 10/17/18 10/30/18 Sha Wong MD PCP - General Internal Medicine 10/31/18 03/28/19 Lashell Villanueva MD PCP - General Internal Medicine 03/29/19 9 Sha Wong MD PCP - General Internal Medicine 08/29/19 09/11/21 Monse Flores MD [address] [place] [id number] PCP - General Internal Medicine 09/12/21 [facility], [facility] Internal Medicine 11/23/17 documented as of this encounter
--- OUTSIDE RECORDS SUMMARY | 2025-06-14 14:46 | XMS_ITS | Encounter Summary ---
Author Organization [facility] Address [address] [place] [address] Care Team Providers Care Payroll Consultant Name Role Phone Edith Wong MD Primary Care Provider Unavail able [facility], Pcp Unavailable Unavailable Khadar Armstrong MD Primary Care Provider Unavailab le Edith Wong MD Primary Care Provider Unavail able Lashell Villanueva MD Primary Care Provider Unav ailable Edith Wong MD Primary Care Provider Unavail able Monse Flores MD Primary Care Provider [phone] Reason for Visit * Reason Onset Date Comments Single Ending Machine Operator Feedback 09/06/2018 home care Encounter Details Date Type Department Care Team Description 09/06/2018 Telephone Adult Medicine [address] [address] Edith Wong MD Single Ending Machine Operator Feedback (home care) Social History Tobacco Use Types Packs/Day Years [...] Telephone Encounter - Rowena Burr R.N. - 09/06/2018 12:55 PM EST Referred to [facility], forms were preprinted and left on my desk, I have faxed as requested * Telephone Encounter - Charlotte Rivas - 09/06/2018 11:55 AM EST BICYCLE INSPECTOR is checking the status of Home Health Care order. This order will print to the same printer this workstation prints all other orders.The clinical staff in the department will contact the patient to schedule the appointment. Please notify the referrals department once services have been set up and who they have been set up with. Thank you Charlotte Referrals Scalp Treatment Operator documented in this encounter Plan of Treatment Not on file documented as of this encounter Visit Diagnoses Not on filedocumented in this encounter Care Teams Payroll Consultant Relationship Specialty Start Date End Date Edith Wong MD PCP - General Internal Medicine 11/23/17 10/16/18 Khadar Armstrong MD PCP - General Pediatrics 10/17/18 10/30/18 Edith Wong MD PCP - General Internal Medicine 10/31/18 03/28/19 Lashell Villanueva MD PCP - General Internal Medicine 03/29/19 9 Edith Wong MD PCP - General Internal Medicine 08/29/19 09/11/21 Monse Flores MD [address] [place] [address] PCP - General Internal Medicine 09/12/21 [facility], [facility] Internal Medicine 11/23/17 documented as of this encounter
--- OUTSIDE RECORDS SUMMARY | 2025-06-14 14:46 | XMS_ITS | Encounter Summary ---
Author Organization [facility] Address [address] [place] [address] Care Team Providers Care It Business Process Architect Name Role Phone Edith Wong MD Primary Care Provider Unavail able [facility], [facility], Pcp Unavailable Unavailable Khadar Armstrong MD Primary Care Provider Unavailab le Edith Wong MD Primary Care Provider Unavail able Lashell Villanueva MD Primary Care Provider Unav ailable Edith Wong MD Primary Care Provider Unavail able Monse Flores MD Primary Care Provider [phone] Reason for Visit * Reason Onset Date Comments Appointment-Internal Referral 03/28/2018 ysiatry Encounter Details Date Type Department Care Team Description 03/28/2018 [place] [facility] [address] [address] Edith Wong MD Appointment-Internal Referral (physiatry) Social History Tobacco Use Types Packs/Day Years [...] encounter Miscellaneous Notes * Telephone Encounter - Laura Turk - 03/28/2018 9:50 AM EDT Patient was referred to the physiatry department for carpal tunnel with prior release 2014 and diabetic peripheral neuropathy and two phone calls were made and a letter was sent but patient has not responded. No further action will be taken with this referral. documented in this encounter Plan of Treatment Not on file documented as of this encounter Visit Diagnoses Not on filedocumented in this encounter Care Teams It Business Process Architect Relationship Specialty Start Date End Date Edith Wong MD PCP - General Internal Medicine 11/23/17 10/16/18 Khadar Armstrong MD PCP - General Pediatrics 10/17/18 10/30/18 Edith Wong MD PCP - General Internal Medicine 10/31/18 03/28/19 Lashell Villanueva MD PCP - General Internal Medicine 03/29/19 9 Edith Wong MD PCP - General Internal Medicine 08/29/19 09/11/21 Monse Flores MD [address] [place] [id number] PCP - General Internal Medicine 09/12/21 [facility] Internal Medicine 11/23/17 documented as of this encounter
--- OUTSIDE RECORDS SUMMARY | 2025-06-14 14:46 | XMS_ITS | Encounter Summary ---
Author Organization [facility] Address [address] [place] [address] Care Team Providers Care Protective Signal Operations Supervisor Name Role Phone Edith Wong MD Primary Care Provider Unavail able [facility], Pcp Unavailable Unavailable Khadar Armstrong MD Primary Care Provider Unavailab le Edith Wong MD Primary Care Provider Unavail able Lashell Villanueva MD Primary Care Provider Unav ailable Edith Wong MD Primary Care Provider Unavail able Monse Flores MD Primary Care Provider [phone] Reason for Visit * Reason Onset Date Comments Abnormal Test Results 09/09/2018 Encounter Details Date Type Department Care Team Description 09/09/2018 Telephone Adult Medicine [address] [address] Edith Wong MD Abnormal Test Results Social History Tobacco Use Types Packs/Day Years [...] encounter Miscellaneous Notes * Telephone Encounter - Edith Wong MD - 09/09/2018 8:03 AM EST I spoke with patient this morning regarding her elevated liver function testing. I've ordered a stat ultrasound of the liver to also include the IVC as she had recent admission, intubation and sedation for suspected opioid withdrawal. I've ordered repeat hepatic function testing today, workup for hepatitis and placed urgent referralto gastroenterology. I communicated with her no Tylenol and stopped her statin medication. She did recently have antibiotic for dental infection possibly this could be from that. Patient reports she will get the blood work and ultrasound done this morning. * Telephone Encounter - Edith Wong MD - 09/09/2018 8:03 AM EST ----- Message from Raya Stanley DO sent at 09/08/2018 9:53 PM EST ----- I know she saw you for recent fu. The LFTS seem to be a new problem and will need to be evaluated .I don't think this was done during her hospitalization. documented in this encounter Plan of Treatment Not on file documented as of this encounter Visit Diagnoses Not on filedocumented in this encounter Care Teams Protective Signal Operations Supervisor Relationship Specialty Start Date End Date Edith Wong MD PCP - General Internal Medicine 11/23/17 10/16/18 Khadar Armstrong MD PCP - General Pediatrics 10/17/18 10/30/18 Edith Wong MD PCP - General Internal Medicine 10/31/18 03/28/19 Lashell Villanueva MD PCP - General Internal Medicine 03/29/19 9 Edith Wong MD PCP - General Internal Medicine 08/29/19 09/11/21 Monse Flores MD [address] [place] [id number] PCP - General Internal Medicine 09/12/21 [facility] Internal Medicine 11/23/17 documented as of this encounter
--- OUTSIDE RECORDS SUMMARY | 2025-06-14 14:46 | XMS_ITS | Encounter Summary ---
Author Organization [facility] Address [address] [place] [address] Care Team Providers Care Head Counselor Name Role Phone Berta Denson MD Primary Care Provider Unavail able [facility], Pcp Primary Care Provider Unavailabl Edith Friend MD Primary Care Provider Unavail able [facility], [facility], Pcp Unavailable Unavailable Khadar Armstrong MD Primary Care Provider Unavailab le Edith Wong MD Primary Care Provider Unavail able Lashell Villanueva MD Primary Care Provider Unav ailable Edith Wong MD Primary Care Provider Unavail able Monse Flores MD Primary Care Provider [phone] Encounter Details Date Type Department Care Team Description 03/08/2012 Development Architect Report Medical Records [address] [place] [address] Rohit Quintanilla MD Social History Tobacco Use Types Packs/Day Years Used Date Smoking Tobacco: Former Cigarettes Q uit: 11/24/2010 Smokeless Tobacco: Never Alcohol Use Standard [...] on filedocumented in this encounter Care Teams Head Counselor Relationship Specialty Start Date End Date Berta [...] Internal Medicine 08/29/19 09/11/21 Monse Flores MD [address] [place] [address] PCP - General Internal Medicine 09/12/21 [facility], [facility], [facility] Internal Medicine 11/23/17 documented as of this encounter
--- OUTSIDE RECORDS SUMMARY | 2025-06-14 14:46 | XMS_ITS | Encounter Summary ---
Author Organization [facility] Address [address] [place] [address] Care Team Providers Care Agent Based Modeler Name Role Phone Berta Denson MD Primary [...] able Monse Flores MD Primary Care Provider [phone] Encounter Details Date Type Department Care Team Description 01/10/2013 Flange Machine Operator Report Medical Records [address] [place] [address] Georgette Briscoe MD [address] [place] [address] [place] [address] Social History Tobacco Use Types Packs/Day Years [...] on filedocumented in this encounter Care Teams Agent Based Modeler Relationship Specialty Start Date End Date Berta [...] Internal Medicine 08/29/19 09/11/21 Monse Flores MD [address] [place] [id number] PCP - General Internal Medicine 09/12/21 [facility], Pcp Internal Medicine 11/23/17 documented as of this encounter
--- OUTSIDE RECORDS SUMMARY | 2025-06-14 14:46 | XMS_ITS | Encounter Summary ---
Author Organization [facility] Address [address] [place] [address] Care Team Providers Care Care Aide Name Role Phone Berta Denson MD Primary Care Provider Unavail able [facility], Pcp Primary Care Provider Unavailabl Edith Friend MD Primary Care Provider Unavail able [facility], Pcp Unavailable Unavailable Khadar Armstrong MD Primary Care Provider Unavailab le Edith Wong MD Primary Care Provider Unavail able Lashell Villanueva MD Primary Care Provider Unav ailable Edith Wong MD Primary Care Provider Unavail able Monse Flores MD Primary Care Provider [phone] Encounter Details Date Type Department Care Team Description 08/14/2011 Eye Injection Operator Report Medical Records [address] [place] [address] Social History Tobacco Use Types Packs/Day Years [...] on filedocumented in this encounter Care Teams Care Aide Relationship Specialty Start Date End Date Berta Denson MD PCP - General 12/17/04 01/14/16 [facility], Pcp PCP - General Internal Medicine 01/15/16 11/22/17 Edith Wong MD PCP - General Internal Medicine 11/23/17 10/16/18 Khadar Armstrong MD PCP - General Pediatrics 10/17/18 10/30/18 Edith Wong MD PCP - General Internal Medicine 10/31/18 03/28/19 Lashell Villanueva MD PCP - General Internal Medicine 03/29/19 9 Edith Wong MD PCP - General Internal Medicine 08/29/19 09/11/21 Monse Flores MD [address] [place] [address] PCP - General Internal Medicine 09/12/21 [facility] 11/23/17 documented as of this encounter
--- OUTSIDE RECORDS SUMMARY | 2025-06-14 14:47 | XMS_ITS | Encounter Summary ---
Author Organization [facility] Address [address] [place] [address] Care Team Providers Care Mushroom Growth Media Mixer Name Role Phone Berta Denson MD Primary [...] able Monse Flores MD Primary Care Provider [phone] Encounter Details Date Type Department Care Team Description 2010 Release of Information Medical Records [address] [place] [id number] Abstract, Provider Social History Tobacco Use Types Packs/Day Years Used Date Smoking Tobacco: Former Cigarettes 0.3 Alcohol Use Standard Drinks/Week Comments No 0 [...] on filedocumented in this encounter Care Teams Mushroom Growth Media Mixer Relationship Specialty Start Date End Date Berta [...] Internal Medicine 08/29/19 09/11/21 Monse Flores MD [address] [place] [address] PCP - General Internal Medicine 09/12/21 [facility] Medicine 11/23/17 documented as of this encounter
--- OUTSIDE RECORDS SUMMARY | 2025-06-14 14:48 | XMS_ITS | Encounter Summary ---
Author Organization [facility] Address [address] [place] [address] Care Team Providers Care Clinical Documentation Clerk Name Role Phone [facility], Pcp Unavailable Unavailable Edith Wong MD Primary Care Provider Unavail able Monse Flores MD Primary Care Provider [phone] Reason for Visit * Reason Onset Date Comments Faxed Refill 09/24/2020 Encounter Details Date Type Department Care Team Description 09/24/2020 Refill Adult Medicine [address] [address] Edith Wong MD Faxed Refill Social History Tobacco Use Types Packs/Day Years Used Date Smoking Tobacco: Former Cigarettes 0.5 40 S tarted: 1976 Smokeless Tobacco: Never Alcohol Use Standard Drinks/Week Comments No 0 (1 standard drink = 0.6 oz pur e alcohol) Sex Assigned at Date Recorded Female 06/11/2020 12:03 PM EDT Job Start Date Occupation Industry Not on file Not on file Not on file COVID-19 Exposure Response Date Recorded In the last month, have you been in contact with someone who was confirmed or suspected to have Coronavirus / COVID-19? Unable to assess 09/04/2020 7:40 AM EST documented as of this encounter Miscellaneous Notes * Telephone Encounter - Francia Roblero M.A. - 09/24/2020 3:20 PM EST Please sign, pt non compliant with pcp but is followed by endo. Last office visit 08/05/20 * Telephone Encounter - Edith Wong MD - 09/24/2020 3:12 PM EST She is noncompliant with myself * Telephone Encounter - Francia Roblero M.A. - 09/24/2020 2:32 PM EST Last office visit 08/05/20 with endo Lab Results Component Value Date HGBA1C 9.1 12/13/2019 MALBUR 0.9 09/05/2018 MALBCR 6.0 09/05/2018 CHOL 167 12/13/2019 LDL 72 12/13/2019 HDL 79 12/13/2019 TRIG 81 12/13/2019 GLU 224 12/13/2019 CREAT 0.73 12/13/2019 * Telephone Encounter - Saida Dixon - 09/24/2020 2:31 PM EST Patient would like script to be: E-PRESCRIBED/FAXED TO PHARMACY ?? WHEN WAS THE PATIENT'S LAST APPOINTMENT IN ADULT MEDICINE? 03/19/2020 ?? WHEN WAS THE LAST TIME THE PATIENT SAW THEIR PCP? 12/13/2019 ?? Does patient have an upcoming appointment? No-patient will call back to book appointment ?? (THE MEDICATION REQUESTED IS ON THE MED LIST ABOVE) All of the medications requested were on the CURRENT MEDS list ?? Did you check the Pharmacy information above?: YES ?? Patient wants: 30 -day supply ?? Is this a mail order prescription request ? NO ?? If the refill is from a FAXED refill request what is the RX # listed on the fax? N/A ?? Patients current insurance carrier is: Payor: [employer] FFS / Plan: [facility] [place] / Product Type: MEDICAID RISK ?? documented in this encounter Plan of Treatment Not on file documented as of this encounter Visit Diagnoses Not on filedocumented in this encounter Care Teams Clinical Documentation Clerk Relationship Specialty Start Date End Date Edith Wong MD PCP - General Internal Medicine 08/29/19 09/11/21 Monse Flores MD [address] [place] [address] PCP - General Internal Medicine 09/12/21 [facility] Internal Medicine 11/23/17 documented as of this encounter
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
--- OUTSIDE RECORDS SUMMARY | 2025-06-14 14:48 | XMS_ITS | Encounter Summary ---
Author Organization [facility] [employer] [facility] Address [address] [place] [address] Care Team Providers Care Brick Shader Name Role Phone Community, Pcp Unavailable Unavailable Edith Wong MD Primary Care Provider Unavail able Monse Flores MD Primary Care Provider [phone] Encounter Details Date Type Department Care Team Description 06/18/2021 Refill Gastroenterology - [address] [place] [phone] Ena Cui MD Social History Tobacco Use Types Packs/Day [...] on filedocumented in this encounter Care Teams Brick Shader Relationship Specialty Start Date End Date Edith Wong MD PCP - General Internal Medicine 08/29/19 09/11/21 Monse Flores MD [address] [place] [address] [id number] PCP - General Internal Medicine 09/12/21 Community, [facility] Internal Medicine 11/23/17 documented as of this encounter
--- OUTSIDE RECORDS SUMMARY | 2025-06-14 14:48 | XMS_ITS | Encounter Summary ---
Author Organization [facility] Address [address] [place] [address] Care Team Providers Care Assembler Unit Name Role Phone Community, Pcp Unavailable Unavailable Edith Wong MD Primary Care Provider Unavail able Monse Flores MD Primary Care Provider [phone] Encounter Details Date Type Department Care Team Description 09/10/2020 Telephone Gastroenterology - [address] [place] [phone] Ena Cui MD Social History Tobacco [...] encounter Miscellaneous Notes * Telephone Encounter - Iris Salazar - 09/17/2020 8:31 AM EST Left message for patient to reschedule * Telephone Encounter - Ena Cui MD - 09/10/2020 3:08 PM EST Message left. Did not have COVID testing for colonoscopy tomorrow. documented in this encounter Plan of Treatment Not on file documented as of this encounter Visit Diagnoses Not on filedocumented in this encounter Care Teams Assembler Unit Relationship Specialty Start Date End Date Edith Wong MD PCP - General Internal Medicine 08/29/19 09/11/21 Monse Flores MD [address] [place] [id number] PCP - General Internal Medicine 09/12/21 [facility] Internal Medicine 11/23/17 documented as of this encounter
--- OUTSIDE RECORDS SUMMARY | 2025-06-14 14:48 | XMS_ITS | Encounter Summary ---
Author Organization [facility] [employer] [facility] Address [address] [place] [address] Care Team Providers Care Wood Heel Finisher Name Role Phone Community, Pcp Unavailable Unavailable Edith Wong MD Primary Care Provider Unavail able Monse Flores MD Primary Care Provider [phone] Encounter Details Date Type Department Care Team Description 01/02/2021 [facility] Medical Records [address] [place] [id number] Waleska Cooper PA-C Social History Tobacco Use Types Packs/Day Years [...] on filedocumented in this encounter Care Teams Wood Heel Finisher Relationship Specialty Start Date End Date Edith Wong MD PCP - General Internal Medicine 08/29/19 09/11/21 Monse Flores MD [address] [place] [address] [id number] PCP - General Internal Medicine 09/12/21 Community, Pcp Internal Medicine 11/23/17 documented as of this encounter
--- OUTSIDE RECORDS SUMMARY | 2025-06-14 14:48 | XMS_ITS | Encounter Summary ---
Author Organization [facility] Address [address] [place] [address] Care Team Providers Care Key Person Name Role Phone Community, Pcp Unavailable Unavailable Edith Wong MD Primary Care Provider Unavail able Lashell Villanueva MD Primary Care Provider Unav ailable Edith Wong MD Primary Care Provider Unavail able Mnose Flores MD Primary Care Provider [phone] Encounter Details Date Type Department Care Team Description 11/23/2018 Release of Information Medical Records [address] [place] [address] Abstract, Provider Social History Tobacco Use Types Packs/Day Years Used Date Smoking Tobacco: Some Days Cigarettes 0.5 40 Started: 1976 Smokeless Tobacco: Never Alcohol Use Standard [...] on filedocumented in this encounter Care Teams Key Person Relationship Specialty Start Date End Date Edith Wong MD PCP - General Internal Medicine 10/31/18 03/28/19 Lashell Villanueva MD PCP - General Internal Medicine 03/29/19 9 Edith Wong MD PCP - General Internal Medicine 08/29/19 09/11/21 Monse Flores MD [address] [place] [address] PCP - General Internal Medicine 09/12/21 [facility], Pcp Internal Medicine 11/23/17 documented as of this encounter
--- OUTSIDE RECORDS SUMMARY | 2025-06-14 14:48 | XMS_ITS | Encounter Summary ---
Author Organization [facility] Address [address] [place] [address] Care Team Providers Care Component Prep Operator Name Role Phone Community, Pcp Unavailable Unavailable Edith Wong MD Primary Care Provider Unavail able Monse Flores MD Primary Care Provider [phone] Encounter Details Date Type Department Care Team Description 07/03/2021 Orders Only Medical Records [address] [place] [id number] Ena Cui MD Social History Tobacco Use [...] on file documented as of this encounter Procedures Procedure Name Priority Date/Time Associated Diagnosis Comments OUTSIDE LAB Routine 07/02/2021 documented in this encounter Results * OUTSIDE LAB (07/02/2021) Ena Cui MD LAB documented in this encounter Visit Diagnoses Not on filedocumented in this encounter Care Teams Component Prep Operator Relationship Specialty Start Date End Date Edith Wong MD PCP - General Internal Medicine 08/29/19 09/11/21 Monse Flores MD [address] [place] [id number] PCP - General Internal Medicine 09/12/21 [facility], Pcp Internal Medicine 11/23/17 documented as of this encounter
--- OUTSIDE RECORDS SUMMARY | 2025-06-14 14:48 | XMS_ITS ---
Author Name [facility] Organization Unknown Care Team Organization Name Specialty Phone Email Start Date End Da te [facility] NULL Primary Care 08/18/2022 05/29/2024
--- OUTSIDE RECORDS SUMMARY | 2025-06-14 14:48 | XMS_ITS | Encounter Summary ---
Author Organization [facility] Address [address] [place] [address] Care Team Providers Care Maritime Officer Name Role Phone Community, Pcp Unavailable Unavailable Edith Wong MD Primary Care Provider Unavail able Lashell Villanueva MD Primary Care Provider Unav ailable Edith Wong MD Primary Care Provider Unavail able Monse Flores MD Primary Care Provider [phone] Encounter Details Date Type Department Care Team Description 02/23/2019 Putty Worker Report Medical Records [address] [place] [address] Ronan Sears PA-C [address] [place] [address] [address] [place] [address] Social History Tobacco Use Types Packs/Day Years [...] on filedocumented in this encounter Care Teams Maritime Officer Relationship Specialty Start Date End Date Edith Wong MD PCP - General Internal Medicine 10/31/18 03/28/19 Lashell Villanueva MD PCP - General Internal Medicine 03/29/19 9 Edith Wong MD PCP - General Internal Medicine 08/29/19 09/11/21 Monse Flores MD [address] [place] [id number] PCP - General Internal Medicine 09/12/21 [facility] Internal Medicine 11/23/17 documented as of this encounter
--- OUTSIDE RECORDS SUMMARY | 2025-06-14 14:48 | XMS_ITS | Encounter Summary ---
Author Organization [facility] Address [address] [place] [address] Care Team Providers Care Assistant Manager Of Operations Name Role Phone Community, Pcp Unavailable Unavailable Edith Wong MD Primary Care Provider Unavail able Monse Flores MD Primary Care Provider Reason for Visit * Reason Onset Date Comments Special Procedure 07/29/2020 Encounter Details Date Type Department Care Team Description 07/29/2020 Telephone Gastroenterology - [address] [phone] Ena Cui MD Special Procedure Social History Tobacco Use Types Packs/Day Years [...] encounter Miscellaneous Notes * Telephone Encounter - Kassandra Castillo - 07/29/2020 9:49 AM EDT Left message to have patient call back to reschedule colonoscopy that she No Showed. documented in this encounter Plan of Treatment Not on file documented as of this encounter Visit Diagnoses Not on filedocumented in this encounter Care Teams Assistant Manager Of Operations Relationship Specialty Start Date End Date Edith Wong MD PCP - General Internal Medicine 08/29/19 09/11/21 Monse Flores MD [address] [place] [id number] PCP - General Internal Medicine 09/12/21 [facility], Pcp Internal Medicine 11/23/17 documented as of this encounter
--- OUTSIDE RECORDS SUMMARY | 2025-06-14 14:48 | XMS_ITS | Encounter Summary ---
Author Organization [facility] Address [address] [place] [address] Care Team Providers Care Elastic Yarn Twister Name Role Phone Community, Pcp Unavailable Unavailable Edith Wong MD Primary Care Provider Unavail able Lashell Villanueva MD Primary Care Provider Unav ailable Edith Wong MD Primary Care Provider Unavail able Monse Flores MD Primary Care Provider [phone] Encounter Details Date Type Department Care Team Description 12/12/2018 Release of Information Medical Records [address] [place] [address] Abstract, Provider Social History Tobacco Use Types [...] on filedocumented in this encounter Care Teams Elastic Yarn Twister Relationship Specialty Start Date End Date Edith Wong MD PCP - General Internal Medicine 10/31/18 03/28/19 Lashell Villanueva MD PCP - General Internal Medicine 03/29/19 9 Edith Wong MD PCP - General Internal Medicine 08/29/19 09/11/21 Monse Flores MD [address] [place] [address] PCP - General Internal Medicine 09/12/21 [facility], Pcp Internal Medicine 11/23/17 documented as of this encounter
--- OUTSIDE RECORDS SUMMARY | 2025-06-14 14:48 | XMS_ITS | Encounter Summary ---
Author Organization [facility] Address [address] [place] [address] Care Team Providers Care Appraiser Real Estate Name Role Phone Community, Pcp Unavailable Unavailable Edith Wong MD Primary Care Provider Unavail able Monse Flores MD Primary Care Provider [phone] Reason for Visit * Reason Comments E-prescribe Rx Request Encounter Details Date Type Department Care Team Description 09/19/2019 Refill Adult Medicine [address] [address] Edith Wong MD E-prescribe Rx Request Social History Tobacco Use Types Packs/Day Years [...] encounter Miscellaneous Notes * Telephone Encounter - Lara Teague M.A. - 09/19/2019 1:02 PM EST Lab Results Component Value Date ALB 3.5 12/12/2018 SGOT 73 12/12/2018 SGPT 90 12/12/2018 TBILI 0.8 12/12/2018 DBILI 0.5 12/12/2018 IBILI 0.3 12/12/2018 ALKPHOS 442 12/12/2018 TP 8.0 12/12/2018 * Telephone Encounter - Betsy Brooke - 09/19/2019 12:03 PM EST Patient would like script to be: E-PRESCRIBED/FAXED TO PHARMACY / WHEN WAS THE PATIENT'S LAST APPOINTMENT IN ADULT MEDICINE? 08/29/19 WHEN WAS THE LAST TIME THE PATIENT SAW THEIR PCP? 02/06/19 Does patient have an upcoming appointment? Yes 09/28/19 (THE MEDICATION REQUESTED IS ON THE MED LIST ABOVE) All of the medications requested were on the CURRENT MEDS list Did you check the Pharmacy information above?: YES Patient wants: 30 -day supply Is this a mail order prescription request ? NO If the refill is from a FAXED refill request what is the RX # listed on the fax? N/A Patients current insurance carrier is: Payor: [employer] / Plan: [facility] / Product Type: MEDICAID RISK documented in this encounter Plan of Treatment Not on file documented as of this encounter Visit Diagnoses Not on filedocumented in this encounter Care Teams Appraiser Real Estate Relationship Specialty Start Date End Date Edith Wong MD PCP - General Internal Medicine 08/29/19 09/11/21 Monse Flores MD [address] [place] [id number] PCP - General Internal Medicine 09/12/21 [facility] Internal Medicine 11/23/17 documented as of this encounter
--- OUTSIDE RECORDS SUMMARY | 2025-06-14 14:48 | XMS_ITS | Encounter Summary ---
Author Organization [facility] [employer] [facility] Address [address] [place] [address] Care Team Providers Care Director Franchise Sales Name Role Phone Community, Pcp Unavailable Unavailable Edith Wong MD Primary Care Provider Unavail able Monse Flores MD Primary Care Provider [phone] Encounter Details Date Type Department Care Team Description 08/01/2020 Orders Only Radiology - [address] [id number] Radiology, Authorizing Social History Tobacco Use Types Packs/Day Years [...] on filedocumented in this encounter Care Teams Director Franchise Sales Relationship Specialty Start Date End Date Edith Wong MD PCP - General Internal Medicine 08/29/19 09/11/21 Monse Flores MD [address] [place] [address] [id number] PCP - General Internal Medicine 09/12/21 [facility], Pcp Internal Medicine 11/23/17 documented as of this encounter
--- OUTSIDE RECORDS SUMMARY | 2025-06-14 14:48 | XMS_ITS | Encounter Summary ---
Author Organization [facility] Address [address] [place] [address] Care Team Providers Care Electrician Outside Name Role Phone Community, Pcp Unavailable Unavailable Edith Wong MD Primary Care Provider Unavail able Lashell Villanueva MD Primary Care Provider Unav ailable Edith Wong MD Primary Care Provider Unavail able Monse Flores MD Primary Care Provider [phone] Encounter Details Date Type Department Care Team Description 12/29/2018 Orders Only Adult Medicine [address] [address] Edith Wong MD Social History Tobacco Use Types Packs/Day [...] on filedocumented in this encounter Care Teams Electrician Outside Relationship Specialty Start Date End Date Edith Wong MD PCP - General Internal Medicine 10/31/18 03/28/19 Lashell Villanueva MD PCP - General Internal Medicine 03/29/19 9 Edith Wong MD PCP - General Internal Medicine 08/29/19 09/11/21 Monse Flores MD [address] [place] [id number] PCP - General Internal Medicine 09/12/21 [facility], Pcp Internal Medicine 11/23/17 documented as of this encounter
--- OUTSIDE RECORDS SUMMARY | 2025-06-14 14:48 | XMS_ITS | Encounter Summary ---
Author Organization [facility] Address [address] [place] [address] Care Team Providers Care Trimmer Climber Name Role Phone Community, Pcp Unavailable Unavailable Edith Wong MD Primary Care Provider Unavail able Monse Flores MD Primary Care Provider [phone] Encounter Details Date Type Department Care Team Description 02/21/2020 Family Protection Specialist Report Medical Records [address] [place] [id number] Kendrick Richards MD Social History Tobacco Use Types Packs/Day [...] on filedocumented in this encounter Care Teams Trimmer Climber Relationship Specialty Start Date End Date Edith Wong MD PCP - General Internal Medicine 08/29/19 09/11/21 Monse Flores MD [address] [place] [address] [id number] PCP - General Internal Medicine 09/12/21 [facility], Pcp Internal Medicine 11/23/17 documented as of this encounter
--- OUTSIDE RECORDS SUMMARY | 2025-06-14 14:48 | XMS_ITS | Clinical Summary ---
Author Organization [facility] Address [address] [place] [address] Phone Care Team Providers Care [employer] Player Name Role Phone Anel Barrera MD Primary Care Provider [phone] Allergies Active Allergy Reactions Criticality Noted Date Comments Amitriptyline Other 09/05/2018 Tinnitus Medications busPIRone (BUSPAR) 10 mg tablet Take 1.5 tablets (15 mg total) by mouth 2 (two) times a day. 021 Active rOPINIRole (REQUIP) 0.25 mg tablet Take 1 tablet (0.25 mg total) by mouth 2 (two) times a day. TAKE 1 TABLET BY MOUTH TWICE A DAY 022 Active multivitamin (MULTIPLE VITAMINS ORAL) Take 1 tablet by mouth 1 (one) time each day. Take once daily by mouth Active atorvastatin (LIPITOR) 80 mg tablet Take 1 tablet (80 mg total) by mouth 1 (one) time each day. Active acetaminophen (TYLENOL) 325 mg tablet Take 3 tablets (975 mg total) by mouth every 6 (six) hours. Active hydrOXYzine HCL (ATARAX) 10 mg tablet Take 1 tablet (10 mg total) by mouth 2 (two) times a day if needed for anxiety. Active insulin glargine (LANTUS) 100 unit/mL injection Inject 10 Units under the skin at bedtime. Time, frequency not listed Active pantoprazole (PROTONIX) 40 mg EC tablet Take 1 tablet (40 mg total) by mouth 1 (one) time each day before breakfast. Do not crush, chew, or split. Active ticagrelor (BRILINTA) 90 mg tablet Take 1 tablet (90 mg total) by mouth 2 (two) times a day. Active traZODone (DESYREL) 50 mg tablet Take 1 tablet (50 mg total) by mouth at bedtime. Active Lactobacillus acidoph-L.bulgar (FLORANEX) 1 million cell tablet Take 4 tablets by mouth 3 (three) times a day with meals. 120 tablet Active lidocaine 4 % patch Apply 2 patches topically 1 (one) time each day. 30 patch Active metoprolol tartrate (LOPRESSOR) 25 mg tablet Take 1 tablet (25 mg total) by mouth 2 (two) times a day. 60 each 2025 Active rivaroxaban (XARELTO) 2.5 mg tabletIndications :CVA Take 1 tablet (2.5 mg total) by mouth 2 (two) times a day with meals. 60 tablet 2024 Active glipiZIDE (GLUCOTROL) 5 mg tabletIndications :type 2 diabetes mellitus Take 1 tablet (5 mg total) by mouth 2 (two) times a day before meals. 60 each 025 2025 Active furosemide (LASIX) 40 mg tablet Take 1 tablet (40 mg total) by mouth 1 (one) time each day. 30 each 025 2024 Active albuterol HFA (PROAIR HFA ; PROVENTIL HFA ; VENTOLIN HFA) 90 mcg/actuation inhaler Inhale 2 puffs by mouth every 6 (six) hours if needed for wheezing or shortness of breath. Doses not specified for amount or frequency 6.7 g 025 2024 Active buPROPion XL (WELLBUTRIN XL) 150 mg 24 hr tablet Take 1 tablet (150 mg total) by mouth 1 (one) time each day. Do not crush, chew, or split. 30 each 025 2024 Active buPROPion XL (WELLBUTRIN XL) 150 mg 24 hr tablet Take 1 tablet by mouth every morning. 2024 Discontinued cholecalciferol (VITAMIN D-3) 25 mcg (1,000 unit) tablet one tab twice daily 2024 Discontinued hydrOXYzine HCL (ATARAX) 10 mg tablet Take 10 mg by mouth 2 times daily as needed. 2024 Discontinued insulin glargine (Lantus Solostar U-100 Insulin) 100 unit/mL (3 mL) injection pen Inject 25 Units into the skin at bedtime. *put on hold- pt needs to pick new pharmacy* 2024 Discontinued(F ormulary change) insulin lispro (HumaLOG KwikPen Insulin) 100 unit/mL injection pen Inject 8 Units into the skin 3 times daily (with meals). 2024 Discontinued(F ormulary change) metFORMIN (GLUCOPHAGE) 1,000 mg tablet Take 1 tablet (1,000 mg total) by mouth 2 (two) times a day. TAKE 1 TABLET BY MOUTH TWICE DAILY- states due 9pm 05/17/252024 Discontinued(S top Taking at Discharge) nabumetone (RELAFEN) 500 mg tablet Take 1 Tablet by mouth 2 Times Daily. 2024 Discontinued nicotine (Nicotrol) 10 mg inhaler Inhale 1 Puff into the lungs as needed for Smoking cessation. Insert SmartText 2024 Discontinued omeprazole (PriLOSEC) [address] capsule TAKE 1 CAPSULE BY MOUTH EVERY DAY 2024 Discontinued QUEtiapine (SEROquel) 25 mg tablet Take 1 tablet by mouth at bedtime. Insert SmartText 2024 Discontinued(S top Taking at Discharge) buprenorphine-nal oxone (SUBOXONE) 8-[address] film [address] 1 Film under the tongue every morning. 2024 Discontinued(S top Taking at Discharge) FREESTYLE LANCETS MISC TEST BLOOD SUGAR FOUR TIMES A DAY 2024 Discontinued OMEGA-3 FATTY ACIDS-FISH OIL ORAL Take by mouth. 2024 Discontinued aspirin 81 mg EC tablet Take 81 mg by mouth daily. 2024 Discontinued(D iscontinued by another clinician) pen needle, diabetic (BD Ultra-Fine Short Pen Needle) 31 gauge x 5/16 needle USE WITH INSULIN 4 TIMES A DAY 022 2024 Discontinued blood-glucose meter,continuous misc 1 Device by Does not apply route continuous. Use reader to scan sensor at least every 8 hours 2024 Discontinued flash glucose sensor (FreeStyle Bhavesh 14 Day Sensor) kit 1 Device by Does not apply route every 14 days. Apply to the back of the arm every 14 days. 2024 Discontinued POTASSIUM ORAL Take by mouth daily. 2024 Discontinued vitamin E acetate (VITAMIN E ORAL) 1 cap po TID Vitamin E 800 unit or CAPs 009 2024 Discontinued pen needle, diabetic 31 gauge x 1/4 needle Use with insulin 4 times a day 021 2024 Discontinued blood-glucose meter kit Use to test blood sugar 2024 Discontinued glucose blood test strip Use as needed to check blood glucose if Bhavesh sensor reading for blood sugar is below 65 or if there is question of Bhavesh CGM accurancy. 2024 Discontinued albuterol HFA (PROAIR HFA ; PROVENTIL HFA ; VENTOLIN HFA) 90 mcg/actuation inhaler Inhale by mouth. Doses not specified for amount or frequency 2024 Discontinued buPROPion XL (WELLBUTRIN XL) 150 mg 24 hr tablet Take 2 tablets (300 mg total) by mouth 1 (one) time each day. Do not crush, chew, or split. 2024 Discontinued(S top Taking at Discharge) calcium carbonate (TUMS) 500 mg (200 mg elemental calcium) chewable tablet Chew 1 tablet (500 mg total) every 4 (four) hours if needed for heartburn. 2024 Discontinued(S top Taking at Discharge) dulaglutide (TRULICITY) 3 mg/0.5 mL pen injector injection Inject 0.5 mL (3 mg total) under the skin. No dose or frequency ordered 2024 Discontinued(S top Taking at Discharge) ferrous fumarate 324 mg (106 mg iron) tablet Take 324 mg by mouth. Record states next due 05/18/25 at 0900 am . No frequency ordered 2024 Discontinued(S top Taking at Discharge) furosemide (LASIX) 40 mg tablet Take 1 tablet (40 mg total) by mouth 1 (one) time each day. 2024 Discontinued metoprolol succinate (TOPROL-XL) 25 mg 24 hr tablet Take 1 tablet (25 mg total) by mouth 1 (one) time each day. Do not crush or chew. 2024 Discontinued(S top Taking at Discharge) naloxone (NARCAN) 4 mg/0.1 mL nasal spray Administer 1 each (4 mg total) into affected nostril(s). Dose and frequency not specified on record 2024 Discontinued(S top Taking at Discharge) polyethylene glycol (MIRALAX) 17 gram packet Take 17 g by mouth 1 (one) time each day. 2024 Discontinued(S top Taking at Discharge) insulin lispro 100 unit/mL injection Inject 5 Units under the skin 3 (three) times a day before meals. Listed as before meals per sliding scale but no scale provided 2024 Discontinued(S top Taking at Discharge) cefuroxime (CEFTIN) 250 mg tabletIndications :bacterial urinary tract infection Take 1 tablet (250 mg total) by mouth 2 (two) times a day before meals for 10 doses. 10 each 025 2024 ondansetron ODT (ZOFRAN-ODT) 4 mg disintegrating tabletIndications :Cerebrovascular accident (CVA), unspecified mechanism ([facility] V24, [facility] V28) Take 1 tablet (4 mg total) by mouth 3 (three) times a day if needed for nausea or vomiting for up to 7 days. 20 tablet 025 2024 Discontinued(S top Taking at Discharge) Active Problems Problem Noted Date Diagnosed Date Cerebrovascular accident ([facility] V24, [facility] V 28) 05/17/2025 Polysubstance abuse ([facility] V24, [facility] V28) 0 01/23/2021 Overview (09/29/2024): Using IV drugs as well as intranasal heroin and Xanax Cognitive decline 12/21/2019 Overview (09/29/2024): Normal CT scan of the head December 2019, follows with neurology, diabetes related. Normal B12, negative lyme, RPR. Normal EEG Cervical spinal stenosis 11/02/2018 Overview (09/29/2024): Severe, follows with neurosurgery and physiatry Transaminitis 09/09/2018 Overview (09/29/2024): US, hepatitis work up unremarkable. Referred to GI Anemia of chronic disease 09/07/2018 Overview (09/29/2024): Normal iron and b12 08/2018 Positive urine drug screen 09/05/2018 Overview (09/29/2024): Hospitalized for AMS had opiod withdrawal and positive urine drug screen see provider note 07/2108 Overdose of opiate or relate d narcotic ([facility] V24, [facility] V28) 04/06/2018 Overview (09/29/2024): 04/06/2018 Microalbuminuria 03/15/2018 Bipolar 1 disorder ([facility] V24, [facility] V28) Carpal tunnel syndrome 02/25/2018 Overview (09/29/2024): S/p release 2014 Hyperlipidemia associated wi th type 2 diabetes mellitus ([facility] V24, [facility] V28) 02/25/2018 Diabetic peripheral neuropathy ([facility] V24, [facility] V28) 02/25/2018 Diabetes mellitus type 2 wit h neurological manifestations ([facility] V24, [facility] V28) 11/07/2014 Nuclear sclerosis 10/30/2014 Overview (09/29/2024): Dr Kaur note 01-24-2009 Shoulder impingement syndrome 10/30/2014 Overview (09/29/2024): Tammy Singer note 02-19-2014 HTN (hypertension), benign 02/19/2009 Necrobiosis lipoidica diabet icorum ([facility] V24, [facility] V28) 02/01/2009 Posttraumatic stress disorder 07/16/2006 Type 2 diabetes mellitus ([facility] V24, [facility] V 28) 10/01/2005 Encounters Date Type Department Care Team Description 05/21/2025 Plan of Care Documentation [facility] [address] [place] [id number] 05/17/2025 3:56 PM EDT - 05/25/2025 12:35 PM EDT Hospital Encounter [facility] [address] [place] [id number] Gracie Merritt DO Cerebrovascular accident ([facility] V24, [facility] V28) [I63.9] (Primary Dx); Cerebrovascular accident (CVA), unspecified mechanism ([facility] V24, [facility] V28) Discharge Disposition: Home-Health Care Svc from Last 3 Months Immunizations Name Administration Dates Next Due Hepatitis A Adult (Havrix; V aqta) 19yo and older 11/30/2019,09/28/2018 Influenza Quadravalent, MDCK , 0.5ml, preservative free (Flucelvax) 6mo and older 08/21/2018 Influenza trivalent, with pr eservative (Fluzone; Afluria) 6mo and older 08/24/2014,08/25/2013,07/15/2012,11/05,08/21/2008,07/16/2006 Moderna SARS-CoV-2 COVID-19, mRNA, LNP-S, preservative free 11/24/2021 Pneumococcal polysaccharide 23 valent (Pneumovax 23) 2yo and older 07/16/2006 Tdap Tetanus diptheria acell ular pertussis (Boostrix; Adacel) 7yo and older 03/27/2021,12/24/2008 Surgical History Surgery Date Site/Laterality Comments OTHER SURGICAL HISTORY 2002 PROCEDURE: HISTORICAL SUPRACERVICAL HYSTERECTOMY W/O BSO; COMMENT: fibroids HERNIA REPAIR 1991 PROCEDURE: HISTORICAL HERNIA REPAIR/ING OTHER SURGICAL HISTORY 04/2009 PROCEDURE: [place] LAPS GASTRIC RESTRICTIVE PROCEDURE PLACE DEVICE; COMMENT: [facility] Dr [facility] 224lbs starting wt HAND SURGERY PROCEDURE: HISTORICAL HAND SURGERY; COMMENT: Bilateral carpal tunnel release HERNIA REPAIR PROCEDURE: HISTORICAL HERNIA REPAIR/ING SECTION PROCEDURE: HISTORICAL ; COMMENT: x 2 BREAST REDUCTION 1980 Bilateral PROCEDURE: [place] BREAST REDUCTION COLONOSCOPY 07/02/2021 PROCEDURE: HISTORICAL COLONOSCOPY; COMMENT: polyp Medical History Medical History Date Comments Bipolar 1 disorder ([facility] V24, [facility] V28) 02/25/2018 DX:Bipolar 1 disorder (HCC) Diabetes mellitus type 2 wit h neurological manifestations ([facility] V24, [facility] V28) 11/07/2014 DX:Diabetes mellitus type 2 with neurological manifestations (HCC) Diabetic peripheral neuropat hy ([facility] V24, [facility] V28) 02/25/2018 DX:Diabetic peripheral neur opathy (HCC) Type 2 diabetes mellitus wit h diabetic retinopathy ([facility] V24, [facility] V28) 10/01/2005 DX:Type 2 diabe noel mellitus with diabetic retinopathy (HCC) HTN (hypertension), benign 02/19/2009 DX:HT N (hypertension), benign Hyperlipidemia associated wi th type 2 diabetes mellitus ([facility] V24, [facility] V28) 02/25/2018 DX:Hyperlipidemia associated with type 2 diabetes mellitus (HCC) Necrobiosis lipoidica diabet icorum ([facility] V24, [facility] V28) 02/01/2009 DX:Necrobiosis lipoidica diabeticorum (HCC) Nuclear sclerosis 10/30/2014 DX:Nuclear scl erosis; COMMENT: Dr Kaur note 01-24-2009 Posttraumatic stress disorder 07/16/2006 DX :Posttraumatic stress disorder Shoulder impingement syndrome 10/30/2014 DX :Shoulder impingement syndrome; COMMENT: Tammy Singer note 02-19-2014 Tobacco abuse 03/14/2018 DX:Tobacco abuse Carpal tunnel syndrome 02/25/2018 DX:Carpal tunnel syndrome; COMMENT: S/p release 2014 Type 2 diabetes with nephrop athy ([facility] V24, [facility] V28) 03/15/2018 DX:Type 2 diabetes with nep hropathy (HCC) Microalbuminuria 03/15/2018 DX:Microalbumin uria Overdose of opiate or relate d narcotic ([facility] V24, [facility] V28) 04/06/2018 DX:Overdose of opiate or re lated narcotic ([facility]); COMMENT: 04/06/2018 Positive urine drug screen 09/05/2018 DX:Po sitive urine drug screen; COMMENT: Hospitalized for AMS had opiod withdrawal and positive urine drug screen see provider note 07/2108 Anemia of chronic disease 09/07/2018 DX:Ane jessa of chronic disease; COMMENT: Normal iron and b12 08/2018 Transaminitis 09/09/2018 DX:Transaminitis ; COMMENT: US, hepatitis work up unremarkable. Referred to GI Cervical spinal stenosis 11/02/2018 DX:Cerv ical spinal stenosis; COMMENT: Severe, follows with neurosurgery and physiatry Anemia of chronic disease 09/07/2018 Cerebrovascular accident ([facility] V24, [facility] V28) 05/17/2025 Family History Medical History Relation Name Comments No Known Problems Brother 1 Diabetes Brother 2 from d m complications No Known Problems Brother 3 Other: Other Father 1970 Cataracts Mother 45 Coronary artery disease Mother 45 Diabetes Mother 45 Other: Other Mother 45 1989, cancer, heart Uterine cancer Mother 45 No Known Problems Sister Blindness Neg Hx Colon cancer Neg Hx Glaucoma Neg Hx Macular degeneration Neg Hx Ovarian cancer Neg Hx Pancreatic cancer Neg Hx Prostate cancer Neg Hx Strabismus Neg Hx Relation Name Status Comments Brother 1 2,not sure Brother 2 Brother 3 Alive Father co poismoning Mother 45 Sister Alive 1,healthy Social History Tobacco Use Types Packs/Day Years Used Date Smoking Tobacco: Former Cigarettes 0.5 49.1 S tarted: 1976 Smokeless Tobacco: Never Alcohol Use Standard Drinks/Week Comments No 0 (1 standard drink = 0.6 oz pur e alcohol) Health Literacy Answer Date Recorded How often do you need to hav e someone help you when you read instructions, pamphlets, or other written material from your doctor or pharmacy? Never 05/23/2025 Caregiver: How often do you need to have someone help you when you read instructions, pamphlets, or other written material from your doctor or pharmacy? Not on file 05/23/2025 Transportation Answer Date Recorded Has the lack of transportati on kept you from meetings, work, or from getting things needed for daily living? No Has the lack of transportati on kept you from medical appointments or from getting medications? No 05/18/2025 Social Isolation Answer Date Recorded How often do you feel lonely or isolated from those around you? Sometimes 05/24/2025 Interpersonal Safety Answer Date Record ed Physical Abuse 05/17/2025 Verbal Abuse 05/17/2025 Comments Unknown Sex and Gender Information Value Date Recorded Sex Assigned at Female 05/11/2025 11:33 AM EDT Legal Sex Female 4:11 PM EST Gender Identity Female 05/11/2025 11:33 AM EDT Sexual Orientation Choose not to disclose 2024 11:33 AM EDT Obstetrics History Last Filed Vital Signs Vital Sign Reading Time Taken Comments Blood Pressure 113/67 05/25/2025 9:13 AM EDT Pulse 64 05/25/2025 9:13 AM EDT Temperature 36.2 C (97.1 F) 05/25/2025 9:13 AM EDT Respiratory Rate 18 05/25/2025 9:13 AM EDT Oxygen Saturation 100% 05/25/2025 9:13 AM EDT Inhaled Oxygen Concentration - - Weight 55.3 kg (122 lb) 05/25/2025 5:40 AM EDT Height 158 cm (5' 2.21 ) 05/17/2025 7:56 PM EDT Body Mass Index 22.17 05/17/2025 7:56 PM EDT Plan of Treatment Health Maintenance Due Date Last Done Comments Diabetes: Annual Foot Exam 1975 Diabetes: Annual Retina Eye Exam 1975 Medicare Annual Wellness Visit 09/19/2022 Diabetes: Annual Urine Albumin-Creatinine Ratio (uACR) 09/25/2022 08/05/2021 Diabetes: Blood Sugar Control Test (HGBA1C) 09/25/2022 09/22/2021 Breast Cancer Screening 05/01/2023 05/01/2021, 01/17 Zoster Vaccines (2 of 2) 11/24/2023 09/29/2023 Cervical Cancer Screening: HPV 01/18/2024 01/17/2019 COVID-19 Vaccine ( season) 2024 09/29/2023, 08/20/2022, 04/25/2022, Additional history exists RSV Immunization Adult Patients (1 - Risk 60-74 years 1-dose series) 2025 Influenza Vaccine (#1) 2025 , 08/20/2022, 09/21/2021, Additional history exists Diabetes: Annual GFR (Glomerular Filtration Rate) 05/23/2026 05/23/2025, 05/22/2025, 05/21/2025, Additional history exists Hypertension/CHF/CAD Annual BMP Blood Test 05/23/2026 05/23/2025, 05/22/2025, 05/21/2025, Additional history exists Social Influencers of Health Screening 05/24/2026 05/24/2025 Colorectal Cancer Screening: Colonoscopy 07/02/2026 07/02/2021 Cholesterol Screening (Lipid Panel) 08/05/2026 08/05/2021 DTaP,Tdap,and Td Vaccines (3 - Td or Tdap) 03/27/2031 03/27/2021, 12/24/2008 HIV Screening Completed 03/22/2006 Hepatitis C Screening Completed 09/09/2018 Hepatitis A Vaccines Completed 11/30/2019, 09/28/20 18 Pneumococcal Vaccine: 50+ Years Completed 09/29/2023, 07/16/2006 Depression Screening Completed 05/24/2025 HIB Vaccines Aged Out No longer eligi ble based on patient's age to complete this topic HPV Vaccines Aged Out No longer eligi ble based on patient's age to complete this topic Hepatitis B Vaccines Aged Out No long er eligible based on patient's age to complete this topic IPV Vaccines Aged Out No longer eligi ble based on patient's age to complete this topic MMR Vaccines Aged Out No longer eligi ble based on patient's age to complete this topic Meningococcal ACWY Vaccine Aged Out N o longer eligible based on patient's age to complete this topic Meningococcal B Vaccine Aged Out No l onger eligible based on patient's age to complete this topic RSV Immunization Patients Under 20 months Aged Out No longer eligible based on patient's age to complete this topic Varicella Vaccines Aged Out No longer eligible based on patient's age to complete this topic Procedures Procedure Name Priority Date/Time Associated Diagnosis Comments ECG ANNOTATED 05/28/2025 POCT GLUCOSE BLOOD Routine 05/25/2025 11 :13 AM EDT POCT GLUCOSE BLOOD Routine 05/25/2025 7: 41 AM EDT POCT GLUCOSE BLOOD Routine 05/24/2025 8: 10 PM EDT POCT GLUCOSE BLOOD Routine 05/24/2025 4: 09 PM EDT POCT GLUCOSE BLOOD Routine 05/24/2025 11 :10 AM EDT POCT GLUCOSE BLOOD Routine 05/24/2025 7: 19 AM EDT SST - GOLD Routine 05/24/2025 5:51 AM EDT EXTRA TUBES Routine 05/24/2025 5:51 AM EDT COMPLETE BLOOD COUNT Timed 05/24/2025 5:51 AM EDT POCT GLUCOSE BLOOD Routine 05/23/2025 8: 21 PM EDT POCT GLUCOSE BLOOD Routine 05/23/2025 4: 09 PM EDT TROPONIN I HIGH SENSITIVITY Routine 05/23/2025 3:27 PM EDT ECG 12-LEAD Routine 05/23/2025 2:57 PM EDT XR CHEST 2 VIEWS Routine 05/23/2025 1:15 PM EDT CBC WITH AUTO DIFFERENTIAL Routine 05/23/2025 12:22 PM EDT B-TYPE NATRIURETIC PEPTIDE Routine 05/23/2025 12:22 PM EDT BASIC METABOLIC PANEL Routine 05/23/2025 12:22 PM EDT CBC AND DIFFERENTIAL Routine 05/23/2025 12:22 PM EDT POCT GLUCOSE BLOOD Routine 05/23/2025 11 :01 AM EDT ACTIVATED PARTIAL THROMBOPLASTIN TIME STAT 05/23/2025 9:49 AM EDT PROTHROMBIN TIME WITH INR STAT 05/23/2025 9:49 AM EDT POCT GLUCOSE BLOOD Routine 05/23/2025 9: 47 AM EDT POCT GLUCOSE BLOOD Routine 05/23/2025 7: 28 AM EDT SST - GOLD Routine 05/23/2025 5:59 AM EDT EXTRA TUBES Routine 05/23/2025 5:59 AM EDT CBC WITH AUTO DIFFERENTIAL Routine 05/23/2025 5:59 AM EDT CBC AND DIFFERENTIAL Routine 05/23/2025 5:59 AM EDT POCT GLUCOSE BLOOD Routine 05/22/2025 8: 26 PM EDT LAVENDER - EDTA Routine 05/22/2025 4:22 PM EDT SST - GOLD Routine 05/22/2025 4:22 PM EDT EXTRA TUBES Routine 05/22/2025 4:22 PM EDT TYPE AND SCREEN Routine 05/22/2025 4:22 PM EDT POCT GLUCOSE BLOOD Routine 05/22/2025 4: 14 PM EDT POCT GLUCOSE BLOOD Routine 05/22/2025 11 :11 AM EDT POCT GLUCOSE BLOOD Routine 05/22/2025 7: 12 AM EDT CBC WITH AUTO DIFFERENTIAL Routine 05/22/2025 5:57 AM EDT MAGNESIUM Routine 05/22/2025 5:57 AM EDT BASIC METABOLIC PANEL Routine 05/22/2025 5:57 AM EDT CBC AND DIFFERENTIAL Routine 05/22/2025 5:57 AM EDT POCT GLUCOSE BLOOD Routine 05/21/2025 8: 34 PM EDT POCT GLUCOSE BLOOD Routine 05/21/2025 3: 53 PM EDT ADAMS URINE CULTURE TUBE Routine 05/21/2025 12:09 PM EDT URINALYSIS WITH REFLEX MICROSCOPIC AND CULTURE Routine 05/21/2025 12:09 PM EDT URINALYSIS WITH REFLEX MICROSCOPIC AND CULTURE Routine 05/21/2025 12:09 PM EDT CULTURE URINE Routine 05/21/2025 12:09 PM EDT MAGNESIUM Add-On 05/21/2025 11:02 AM EDT CBC WITH AUTO DIFFERENTIAL STAT 05/21/2025 11:02 AM EDT CBC AND DIFFERENTIAL STAT 05/21/2025 11:02 AM EDT COMPREHENSIVE METABOLIC PANEL STAT 05/21/2025 11:02 AM EDT POCT GLUCOSE BLOOD Routine 05/21/2025 10 :57 AM EDT POCT GLUCOSE BLOOD Routine 05/21/2025 7: 22 AM EDT POCT GLUCOSE BLOOD Routine 05/20/2025 8: 02 PM EDT POCT GLUCOSE BLOOD Routine 05/20/2025 3: 46 PM EDT POCT GLUCOSE BLOOD Routine 05/20/2025 11 :13 AM EDT POCT GLUCOSE BLOOD Routine 05/20/2025 7: 44 AM EDT POCT GLUCOSE BLOOD Routine 05/19/2025 8: 06 PM EDT POCT GLUCOSE BLOOD Routine 05/19/2025 3: 40 PM EDT POCT GLUCOSE BLOOD Routine 05/19/2025 11 :21 AM EDT POCT GLUCOSE BLOOD Routine 05/19/2025 7: 53 AM EDT POCT GLUCOSE BLOOD Routine 05/18/2025 8: 21 PM EDT POCT GLUCOSE BLOOD Routine 05/18/2025 4: 16 PM EDT POCT GLUCOSE BLOOD Routine 05/18/2025 11 :07 AM EDT POCT GLUCOSE BLOOD Routine 05/18/2025 7: 23 AM EDT CBC WITH AUTO DIFFERENTIAL Routine 05/18/2025 6:22 AM EDT PROTHROMBIN TIME WITH INR Routine 05/18/2025 6:22 AM EDT COMPREHENSIVE METABOLIC PANEL Routine 05/18/2025 6:22 AM EDT CBC AND DIFFERENTIAL Routine 05/18/2025 6:22 AM EDT POCT GLUCOSE BLOOD Routine 05/17/2025 7: 53 PM EDT POCT GLUCOSE BLOOD Routine 05/17/2025 4: 40 PM EDT HEMOGLOBIN A1C Routine 09/22/2021 HM URINE ALBUMIN CREATININE RATIO Routine 08/05/2021 LIPID PANEL Routine 08/05/2021 COLONOSCOPY Routine 07/02/2021 SCREENING MAMMOGRAPHY BI 2-VIEW BREAST INC CAD Routine 05/01/2021 4:43 PM EDT Encounter for immunization Type 2 diabetes mellitus with mild nonproliferative diabetic retinopathy without macular edema, bilateral (CMS/HCC V24, [facility]/HCC V28) acute specialist (current) use of insulin (CMS/HCC V24, [facility] V28) HPV Routine 01/17/2019 HEPATITIS C SCREENING Routine 09/09/2018 HIV SCREENING Routine 03/22/2006 from Last 3 Months or Most Recently Relevant to Health Maintenance Results * ECG-Annotated (05/28/2025) us Provider Onbase MD ECG ORDERABLES Final Result * (ABNORMAL) POCT Glucose, blood (05/25/2025 11:13 AM EDT) Only the most recent of33 resultswithin the time period is included. Glucose POCT 197(H) 70 - 100 mg/dL 05/25/2025 11:14 AM EDT [facility] Blood Capillary blood specimen / Unknown 05/25/2025 11:13 AM EDT 05/25/2025 11:15 AM EDT us Gracie Merritt DO LAB POINT OF CARE TEST DOCKED DEVICE UNSOLICITED RESULTS Final Result [facility] [address] [place] [address], [place] [phone] * SST tube (05/24/2025 5:51 AM EDT) Only the most recent of3 resultswithin the time period is included. [facility] Extra Tube Hold for add-ons. 05/24/2025 8:01 AM EDT [facility] Comment:Auto resulted. Blood Venous blood specimen / Unknown Venipuncture / Unknown 05/24/2025 5:51 AM EDT 05/24/2025 6:33 AM EDT Gracie Merritt DO LAB BLOOD ORDERABLES Stephie l Result [facility] [address] [place] [address], * (ABNORMAL) CBC - Every 3 Days (05/24/2025 5:51 AM EDT) [facility] WBC 7.5 4.8 - 10.8 K/mcL LAB HEMETOLOGY METHOD [facility]/24[facility] RBC 3.10(L) 3.80 - 4.80 M/mcL LAB HEMETOLOGY METHOD 05/24/2025 7:12 AM [facility] Hemoglobin 9.1(L) 11.5 - 16.0 g/dL LAB HEMETOLOGY METHOD 05/24/2025 7:12 AM [facility] Hematocrit 28.7(L) 35.0 - 47.0 % LAB HEMETOLOGY METHOD 05/24/2025 7:12 AM EDT [facility] MCV 92.0 79.0 - 98.0 FL LAB HEMETOLOGY METHOD 05/24/2025 7:12 AM [facility] MCH 29.2 27.0 - 32.0 pcg LAB HEMETOLOGY METHOD 05/24/2025 7:12 AM [facility] MCHC 31.7(L) 32.0 - 37.0 g/dL LAB HEMETOLOGY METHOD 05/24/2025 7:12 AM EDT [facility] RDW 15.5(H) 11.0 - 15.0 % LAB HEMETOLOGY METHOD 05/24/2025 7:12 AM EDT [facility] Platelets 301 130 - 400 K/mcL LAB HEMETOLOGY METHOD 05/24/2025 7:12 AM EDT [facility] MPV 12.0(H) 7.0 - 11.0 FL LAB HEMETOLOGY METHOD 05/24/2025 7:12 AM EDT [facility] NRBC 0.0 <1.0 % LAB HEMETOLOGY METHOD 05/24/2025 7:12 AM EDT [facility] NRBC Absolute 0.00 <0.10 K/mcL LAB HEMETOLOGY METHOD 05/24/2025 7:12 AM EDT [facility] Blood Venous blood specimen / Unknown Venipuncture / Unknown 05/24/2025 5:51 AM EDT 05/24/2025 6:32 AM EDT us Gracie Merritt DO LAB BLOOD ORDERABLES Stephie thorne Result [facility] [address] [place] [address], * Troponin I high sensitivity (05/23/2025 3:27 PM EDT) High Sensitivity Troponin I 52 <=54 ng/L LAB CHEMISTRY METHOD 05/23/2025 4:30 PM EDT [facility] Blood Venous blood specimen / Unknown Venipuncture / Unknown 05/23/2025 3:27 PM EDT 05/23/2025 3:43 PM EDT Narrative [facility] - 05/23/2025 4:30 PM EDT High levels of biotin in samples may falsely decrease hsTroponin values. Use caution when interpreting hsTroponin results in patients taking biotin who exhibit renal impairment (eGFR <60) or in patients taking more than 20 mg/day of biotin. Carmen MERRILL LAB BLOOD ORDERABLES Final R esult Performing Organization Address [facility] Co de Phone Number [facility] [address] [place] [address], [place] [phone] * ECG 12 lead (05/23/2025 2:57 PM EDT) Ventricular Rate ECG 63 BPM GEMUSE Atrial Rate 63 BPM GEMUSE P-R Interval 136 ms GEMUSE QRS Duration 122 ms GEMUSE Q-T Interval 474 ms GEMUSE QTc 485 ms GEMUSE P Wave [place] 41 degrees GEMUSE R [place] 4 degrees GEMUSE T [place] 124 degrees GEMUSE ECG Interpretation Normal sinus rhythm Non-specific intra-ventricu lar conduction delay Nonspecific T wave abnormality Abnormal ECG No previous ECGs available Confirmed by ERIN PARIKH ([id number]) on 05/24/2025 7:33:18 PM GEMUSE 05/23/2025 2:57 PM EDT 05/24/2025 7:33 PM EDT Carmen MERRILL ECG ORDERABLES Final Result Performing Organization Address [facility] de Phone Number GEMUSE * XR Chest 2 Views (05/23/2025 1:15 PM EDT) Anatomical Region Laterality Modality Body Radiographic Katt ging 05/23/2025 1:22 PM EDT Impressions 05/23/2025 1:28 PM EDT No evidence of active pulmonary disease. -------- FINAL REPORT -------- Dictated By: Sherrie Lee Dictated Date: 05/23/2025 13:22 ET Assigned Physician: Sherrie Lee Reviewed and Electronically Signed By: Sherrie Lee Signed Date: 05/23/2025 13:28 ET Workstation ID: [id number] Transcribed By: Self Edit Transcribed Date: 05/23/2025 13:22 ET Narrative 05/23/2025 1:28 PM EDT INDICATION: Shortness of breath FINDINGS: Two views of the chest were obtained. There are no prior studies available for comparison. Lung kan are well inflated. No rosana CHF. Mild dependent atelectasis suspected with mild fissural thickening. Possible trace right pleural effusion. Gastric band noted within the left upper abdomen demonstrates horizontal positioning which may represent slippage. Clinical correlation recommended. Cardiomediastinal silhouette is normal in size and shape. Bony structures are within normal limits for the patient's age. Procedure Note Sherrie Lee MD - 05/23/2025 INDICATION: Shortness of breath FINDINGS: Two views of the chest were obtained. There are no prior studiesavailable for comparison. Lung kan are well inflated. No rosana CHF. Mild dependent atelectasissuspected with mild fissural thickening. Possible trace right pleuraleffusion. Gastric band noted within the left upper abdomen demonstrates horizontalpositioning which may represent slippage. Clinical correlationrecommended. Cardiomediastinal silhouette is normal in size and shape. Bony structures are within normal limits for the patient's age. IMPRESSION: No evidence of active pulmonary disease. -------- FINAL REPORT -------- Dictated By: Sherrie Lee Dictated Date: 05/23/2025 13:22 ET Assigned Physician: Sherrie Lee Reviewed and Electronically Signed By: Sherrie Lee Signed Date: 05/23/2025 13:28 ET Workstation ID: [id number] Transcribed By: Self Edit Transcribed Date: 05/23/2025 13:22 ET us Carmen MERRILL IMG XR PROCEDURES Final Resu lt * (ABNORMAL) CBC auto differential (05/23/2025 12:22 PM EDT) Only the most recent of5 resultswithin the time period is included. WBC 8.0 4.8 - 10.8 [facility] LAB HEMETOLOGY METHOD 05/23/2025 1:13 PM EDT [facility] RBC 3.00(L) 3.80 - 4.80 M/mcL LAB HEMETOLOGY METHOD 05/23/2025 1:[facility] Hemoglobin 8.9(L) 11.5 - 16.0 g/dL LAB HEMETOLOGY METHOD 05/23/2025 1:13 PM [facility] Hematocrit 27.9(L) 35.0 - 47.0 % LAB HEMETOLOGY METHOD 05/23/2025 1:13 PM [facility] MCV 92.4 79.0 - 98.0 FL LAB HEMETOLOGY METHOD 05/23/2025 1:13 PM [facility] MCH 29.5 27.0 - 32.0 pcg LAB HEMETOLOGY METHOD 05/23/2025 1:13 PM [facility] MCHC 31.9(L) 32.0 - 37.0 g/dL LAB HEMETOLOGY METHOD 05/23/2025 1:13 PM [facility] RDW 15.6(H) 11.0 - 15.0 % LAB HEMETOLOGY METHOD 05/23/2025 1:13 PM [facility] Platelets 273 130 - 400 K/mcL LAB HEMETOLOGY METHOD 05/23/2025 1:13 PM [facility] MPV 11.9(H) 7.0 - 11.0 FL LAB HEMETOLOGY METHOD 05/23/2025 1:13 PM [facility] NRBC 0.0 <1.0 % LAB HEMETOLOGY METHOD 05/23/2025 1:13 PM [facility] NRBC Absolute 0.00 <0.10 K/mcL LAB HEMETOLOGY METHOD 05/23/2025 1:13 PM [facility] Neutrophils Relative 70.6 % LAB HEMETOLOGY METHOD 05/23/2025 1:13 PM [facility] Lymphocytes Relative 20.4 % LAB HEMETOLOGY METHOD 05/23/2025 1:13 PM EDT [facility] Monocytes Relative 6.4 % LAB HEMETOLOGY METHOD 05/23/2025 1:13 PM EDT [facility] Eosinophils Relative 1.3 % LAB HEMETOLOGY METHOD 05/23/2025 1:13 PM EDT [facility] Basophils Relative 0.9 % LAB HEMETOLOGY METHOD 05/23/2025 1:13 PM EDT [facility] Immature Granulocytes Relative 0.4 % LAB HEMETOLOGY METHOD 05/23/2025 1:13 PM EDT [facility] Neutrophils Absolute 5.65 1.50 - 7.00 K/mcL LAB HEMETOLOGY METHOD 05/23/2025 1:[facility] Lymphocytes Absolute 1.63 1.00 - 5.00 K/mcL LAB HEMETOLOGY METHOD 05/23/2025 1:13 PM EDT [facility] Monocytes Absolute 0.51 0.20 - 1.00 K/mcL LAB HEMETOLOGY METHOD 05/23/2025 1:13 PM EDT [facility] Eosinophils Absolute 0.10 0.00 - 0.50 K/mcL LAB HEMETOLOGY METHOD 05/23/2025 1:13 PM EDT [facility] Basophils Absolute 0.07 0.00 - 0.20 K/mcL LAB HEMETOLOGY METHOD 05/23/2025 1:13 PM EDT [facility] Immature Granulocytes Absolute 0.03 0.00 - 0.03 K/mcL LAB HEMETOLOGY METHOD 05/23/2025 1:13 PM [facility] Blood Venous blood specimen / Unknown Venipuncture / Unknown 05/23/2025 12:22 PM EDT 05/23/2025 12:30 PM EDT us Carmen M Migdalia PA LAB BLOOD ORDERABLES Final R esult Performing Organization Address City/[facility]/ZIP Co de Phone Number [facility] [address] [place] [address], [place] [phone] * (ABNORMAL) B-type natriuretic peptide (05/23/2025 12:22 PM EDT) [facility] BNP 1,227(H) <=100 pcg/mL LAB CHEMISTRY METHOD 05/23/2025 2:13 PM EDT [facility] Blood Venous blood specimen / Unknown Venipuncture / Unknown 05/23/2025 12:22 PM EDT 05/23/2025 12:30 PM EDT Carmen MERRILL LAB BLOOD ORDERABLES Final R esult Performing Organization Address [facility]/ZIP Co de Phone Number [facility] [address] [place] [address], [place] [phone] * (ABNORMAL) Basic metabolic panel (05/23/2025 12:22 PM EDT) Only the most recent of2 resultswithin the time period is included. [facility] Sodium 135 133 - 145 mmol/L LAB CHEMISTRY METHOD 05/23/2025 1:59 PM EDT [facility] Potassium 4.3 3.5 - 5.5 mmol/L LAB CHEMISTRY METHOD 05/23/2025 1:59 PM EDT [facility] Chloride 107 96 - 110 mmol/L LAB CHEMISTRY METHOD 05/23/2025 1:59 PM EDT [facility] CO2 21 21 - 32 mmol/L LAB CHEMISTRY METHOD 05/23/2025 1:59 PM EDT [facility] Anion Gap 7 3 - 11 LAB CHEMISTRY METHOD 05/23/2025 1:59 PM EDT [facility] Glucose 225(H) 70 - 100 mg/dL LAB CHEMISTRY METHOD 05/23/2025 1:59 PM EDT [facility] BUN 23 5 - 25 mg/dL LAB CHEMISTRY METHOD 05/23/2025 1:59 PM EDT [facility] Creatinine 1.35(H) 0.50 - 1.10 mg/dL LAB CHEMISTRY METHOD 05/23/2025 1:59 PM EDT [facility] eGFR 45(L) >=60 mL/min/1. 73m2 LAB CHEMISTRY METHOD 05/23/2025 1:59 PM EDT [facility] Comment:Calculation based on the Chronic Kidney Disease Epidemiology Collaboration (CKD-EPI) equation refit without adjustment for race. BUN/Creatinine Ratio 17.0 LAB CHEMISTRY METHOD 05/23/2025 1:59 PM EDT [facility] Calcium 8.4(L) 8.5 - 10.5 mg/dL LAB CHEMISTRY METHOD 05/23/2025 1:59 PM EDT [facility] Blood Venous blood specimen / Unknown Venipuncture / Unknown 05/23/2025 12:22 PM EDT 05/23/2025 12:30 PM EDT us Carmen MERRILL LAB BLOOD ORDERABLES Final R esult [facility] [address] [place] [address], * Activated Partial Thromboplastin Time - STAT (05/23/2025 9:49 AM EDT) aPTT 29.8 24.1 - 39.3 sec LAB COAGULATION METHOD 05/23/2025 10:07 AM EDT [facility] Blood Venous blood specimen / Unknown Venipuncture / Unknown 05/23/2025 9:49 AM EDT 05/23/2025 9:55 AM EDT Gracie Merritt DO LAB BLOOD ORDERABLES Stephie l Result Performing Organization Address City/State/[facility] Co de Phone Number [facility] [address] [place] [address], [place] [phone] * Prothrombin Time with INR - STAT (05/23/2025 9:49 AM EDT) Only the most recent of2 resultswithin the time period is included. [facility] Protime 12.1 10.6 - 13.9 sec LAB COAGULATION METHOD 05/23/2025 10:07 AM EDT [facility] INR 1.0 LAB COAGULATION METHOD 05/23/2025 10:07 AM EDT [facility] Blood Venous blood specimen / Unknown Venipuncture / Unknown 05/23/2025 9:49 AM EDT 05/23/2025 9:55 AM EDT us Gracie Brownleeese DO LAB BLOOD ORDERABLES Stephie l Result Performing Organization Address [facility] Co de Phone Number [facility] [address] [place] [address], [place] [phone] * Lavender tube (05/22/2025 4:22 PM EDT) [facility] Extra Tube Hold for add-ons. 05/22/2025 6:01 PM EDT [facility] Comment:Auto resulted. Blood Venous blood specimen / Unknown 05/22/2025 4:22 PM EDT 05/22/2025 4:48 PM EDT us Gracie A Shaina DO LAB BLOOD ORDERABLES Stephie l Result Performing Organization Address [facility]/ZIP Co de Phone Number [facility] [address] [place] [address], [place] [phone] * Type and screen (05/22/2025 4:22 PM EDT) [facility] ABO Group A 05/22/2025 5:32 PM EDT [facility] Rh Type Positive 05/22/2025 5:32 PM EDT [facility] Antibody Screen Negative 05/22/2025 5:32 PM EDT [facility] Blood Venous blood specimen / Unknown Venipuncture / Unknown 05/22/2025 4:22 PM EDT 05/22/2025 4:47 PM EDT Marlene MERRILL LAB BLOOD BANK TEST ORDERABLE S Final Result [facility] [address] [place] [address], [place] [phone] * Magnesium (05/22/2025 5:57 AM EDT) Only the most recent of2 resultswithin the time period is included. [facility] Magnesium 2.0 1.9 - 2.6 mg/dL LAB CHEMISTRY METHOD 05/22/2025 7:43 AM EDT [facility] Comment:Results verified by repeat testing Blood Venous blood specimen / Unknown Venipuncture / Unknown 05/22/2025 5:57 AM EDT 05/22/2025 6:23 AM EDT Karen Lance NP LAB BLOOD ORDERABLES Final Result [facility] [address] [place] [address], [place] [phone] * (ABNORMAL) Urinalysis with reflex microscopic and culture (05/21/2025 12:09 PM EDT) Specific Duncan Urine 1.022 1.003 - 1.030 LAB URINALYSIS - AUTOMATED METHOD 05/21/2025 1:16 PM EDT [facility] pH, Urine 8.5(A) 5.0 - 8.0 pH LAB URINALYSIS - AUTOMATED METHOD 05/21/2025 1:16 PM [facility] Leukocytes, Urine Trace(A) Negative LAB URINALYSIS - AUTOMATED METHOD 05/21/2025 1:16 PM [facility] Nitrite, Urine Negative Negative LAB URINALYSIS - AUTOMATED METHOD 05/21/2025 1:16 PM [facility] Protein, Urine 30(A) <=Trace mg/dL LAB URINALYSIS - AUTOMATED METHOD 05/21/2025 1:16 PM [facility] Glucose, Urine Negative Negative mg/dL LAB URINALYSIS - AUTOMATED METHOD 05/21/2025 1:16 PM [facility] Ketones, Urine Negative Negative mg/dL LAB URINALYSIS - AUTOMATED METHOD 05/21/2025 1:16 PM [facility] Urobilinogen, Urine 0.2 0.2 - 1.0 mg/dL LAB URINALYSIS - AUTOMATED METHOD 05/21/2025 1:16 PM [facility] Bilirubin, Urine Negative Negative LAB URINALYSIS - AUTOMATED METHOD 05/21/2025 1:16 PM [facility] Blood, Urine Negative Negative LAB URINALYSIS - AUTOMATED METHOD 05/21/2025 1:16 PM [facility] RBC, Urine 1.1 0 - 4 /HPF LAB URINALYSIS - AUTOMATED METHOD 05/21/2025 1:16 PM [facility] WBC, Urine 4.3(H) 0 - 4 /HPF LAB URINALYSIS - AUTOMATED METHOD 05/21/2025 1:16 PM [facility] Squamous Epithelial, Urine 88(H) 0 - 60 /LPF LAB URINALYSIS - AUTOMATED METHOD 05/21/2025 1:16 PM [facility] Bacteria, Urine Many(A) Negative /HPF LAB URINALYSIS - AUTOMATED METHOD 05/21/2025 1:16 PM [facility] Hyaline Casts, Urine 0.4 0 - 3 /LPF LAB URINALYSIS - AUTOMATED METHOD 05/21/2025 1:16 PM EDT [facility] Urine Urine specimen obtained by clean catch procedure / Unknown Non-blood Collection / Unknown 05/21/2025 12:09 PM EDT 05/21/2025 12:33 PM EDT [facility] LAB URINE ORDERABLES Stephie l Result Performing Organization Address [facility]/ZIP Co de Phone Number [facility] [address] [place] [address], [place] [phone] * Adams urine culture tube (05/21/2025 12:09 PM EDT) Extra Tube Hold for add-ons. 05/21/2025 2:01 PM EDT [facility] Comment:Auto resulted. Urine Urine specimen obtained by clean catch procedure / Unknown Non-blood Collection / Unknown 05/21/2025 12:09 PM EDT 05/21/2025 12:33 PM EDT [facility] URINE ORDERABLES Stephie l Result Performing Organization Address [facility] Co de Phone Number [facility] [address] [place] [address], [place] [phone] * (ABNORMAL) Culture urine (05/21/2025 12:09 PM EDT) Culture, Urine >=100,000 CFU/mL Escherichia coli(A) AMBROSIO 05/24/2025 8:02 AM EDT [facility] Comment: This is an edited result. Previous organism was Gram negative bacilli on 05/22/2025 at 0948 EDT. Culture, Urine 50,000-100,000 CFU/mL Klebsiella pneumoniae ssp pneumoniae(A) AMBROSIO 05/24/2025 8:02 AM EDT [facility] Comment: The organism value for this result has been updated. These results have been appended to the previously preliminary verified report. This is an edited result. Previous organism was Gram negative bacilli on 05/23/2025 at 0848 EDT. Urine Urine specimen obtained by clean catch procedure / Unknown Non-blood Collection / Unknown 05/21/2025 12:09 PM EDT 05/21/2025 1:16 PM EDT Narrative Organism Antibiotic Method Susceptibility Escherichia coli Amoxicillin/Clavulanate AMBROSIO <=2 ug/ml: Susceptible Escherichia coli Ampicillin/Sulbactam AMBROSIO <=2 ug/ml: Susceptible Escherichia coli Piperacillin/Tazobactam AMBROSIO <=4 ug/ml: Susceptible Escherichia coli Cefazolin (Urine) AMBROSIO <=1 ug/ml: Susceptible Escherichia coli Cefoxitin AMBROSIO <=4 ug/ml: Susceptible Escherichia coli Ceftazidime AMBROSIO <=0.5 ug/ml: Susceptible Escherichia coli Ceftriaxone AMBROSIO <=0.25 ug/ml: Susceptible Escherichia coli Cefepime AMBROSIO <=0.12 ug/ml: Susceptible Escherichia coli Meropenem AMBROSIO <=0.25 ug/ml: Susceptible Escherichia coli Amikacin AMBROSIO 4 ug/ml: Susceptible Escherichia coli Gentamicin AMBROSIO <=1 ug/ml: Susceptible Escherichia coli Ciprofloxacin AMBROSIO <=0.06 ug/ml: Susceptible Escherichia coli Levofloxacin AMBROSIO <=0.12 ug/ml: Susceptible Escherichia coli Nitrofurantoin AMBROSIO <=16 ug/ml: Susceptible Escherichia coli Trimethoprim/Sulfame thoxazo le AMBROSIO <=20 ug/ml: Susceptible Klebsiella pneumoniae ssp pneumoniae Amoxicillin/Clavulanate AMBROSIO 4 ug/ml: Susceptible Klebsiella pneumoniae ssp pneumoniae Ampicillin/Sulbactam AMBROSIO 4 ug/ml: Susceptible Klebsiella pneumoniae ssp pneumoniae Piperacillin/Tazobactam AMBROSIO <=4 ug/ml: Susceptible Klebsiella pneumoniae ssp pneumoniae Cefazolin (Urine) AMBROSIO 2 ug/ml: Susceptible Klebsiella pneumoniae ssp pneumoniae Cefoxitin AMBROSIO <=4 ug/ml: Susceptible Klebsiella pneumoniae ssp pneumoniae Ceftazidime AMBROSIO <=0.5 ug/ml: Susceptible Klebsiella pneumoniae ssp pneumoniae Ceftriaxone AMBROSIO <=0.25 ug/ml: Susceptible Klebsiella pneumoniae ssp pneumoniae Cefepime AMBROSIO <=0.12 ug/ml: Susceptible Klebsiella pneumoniae ssp pneumoniae Meropenem AMBROSIO <=0.25 ug/ml: Susceptible Klebsiella pneumoniae ssp pneumoniae Amikacin AMBROSIO <=1 ug/ml: Susceptible Klebsiella pneumoniae ssp pneumoniae Gentamicin AMBROSIO <=1 ug/ml: Susceptible Klebsiella pneumoniae ssp pneumoniae Ciprofloxacin AMBROSIO <=0.06 ug/ml: Susceptible Klebsiella pneumoniae ssp pneumoniae Levofloxacin AMBROSIO <=0.12 ug/ml: Susceptible Klebsiella pneumoniae ssp pneumoniae Nitrofurantoin AMBROSIO 64 ug/ml: Intermediate Klebsiella pneumoniae ssp pneumoniae Trimethoprim/Sulfamethoxazo le AMBROSIO <=20 ug/ml: Susceptible us Gracie Merritt DO LAB MICROBIOLOGY - GENERA L ORDERABLES Final Result [facility] [address] [place] [address], * (ABNORMAL) Comprehensive metabolic panel (05/21/2025 11:02 AM EDT) Only the most recent of2 resultswithin the time period is included. Sodium 132(L) 133 - 145 mmol/L LAB CHEMISTRY METHOD 05/21/2025 11:47 AM [facility] Potassium 4.6 3.5 - 5.5 mmol/L LAB CHEMISTRY METHOD 05/21/2025 11:47 AM [facility] Chloride 103 96 - 110 mmol/L LAB CHEMISTRY METHOD 05/21/2025 11:47 AM [facility] CO2 21 21 - 32 mmol/L LAB CHEMISTRY METHOD 05/21/2025 11:47 AM [facility] Anion Gap 8 3 - 11 LAB CHEMISTRY METHOD 05/21/2025 11:47 AM [facility] Glucose 155(H) 70 - 100 mg/dL LAB CHEMISTRY METHOD 05/21/2025 11:47 AM [facility] BUN 28(H) 5 - 25 mg/dL LAB CHEMISTRY METHOD 05/21/2025 11:47 AM [facility] Creatinine 1.63(H) 0.50 - 1.10 mg/dL LAB CHEMISTRY METHOD 05/21/2025 11:47 AM [facility] eGFR 36(L) >=60 mL/min/1. 73m2 LAB CHEMISTRY METHOD 05/21/2025 11:47 AM [facility] Comment:Calculation based on the Chronic Kidney Disease Epidemiology Collaboration (CKD-EPI) equation refit without adjustment for race. BUN/Creatinine Ratio 17.2 LAB CHEMISTRY METHOD 05/21/2025 11:47 AM [facility] Calcium 8.5 8.5 - 10.5 mg/dL LAB CHEMISTRY METHOD 05/21/2025 11:47 AM [facility] AST (SGOT) 19 10 - 42 unit/L LAB CHEMISTRY METHOD 05/21/2025 11:47 AM [facility] ALT (SGPT) 13 10 - 60 unit/L LAB CHEMISTRY METHOD 05/21/2025 11:47 AM [facility] Alkaline Phosphatase 216(H) 42 - 121 unit/L LAB CHEMISTRY METHOD 05/21/2025 11:47 AM [facility] Total Protein 6.6 6.0 - 8.0 g/dL LAB CHEMISTRY METHOD 05/21/2025 11:47 AM [facility] Albumin 2.7(L) 3.2 - 5.0 g/dL LAB CHEMISTRY METHOD 05/21/2025 11:47 AM [facility] Total Bilirubin 0.4 0.0 - 1.4 mg/dL LAB CHEMISTRY METHOD 05/21/2025 11:47 AM [facility] Blood Venous blood specimen / Unknown Venipuncture / Unknown 05/21/2025 11:02 AM EDT 05/21/2025 11:08 AM EDT us Gracie Merritt DO LAB BLOOD ORDERABLES Stephie l Result [facility] [address] [place] [address], * (ABNORMAL) Hemoglobin A1c (09/22/2021) Pathologist [facility] Hemoglobin A1C 7.2(A) <=6.5 % Blood Venous blood specimen / Unknown [facility] Provider LAB BLOOD ORDERABLES Stephie l Result * Urine Albumin Creatinine Ratio (08/05/2021) Pathologist [facility] Urine Albumin Creatinine Ratio Abstracted [facility] Provider HEALTH MAINTENANCE Final Result * Lipid panel (08/05/2021) Pathologist [facility] LDL/HDL Ratio 2 0 - 4 Triglycerides 115 0 - 150 mg/dL Cholesterol 154 0 - 200 mg/dL HDL 67 >=40 mg/dL LDL Cholesterol 64 0 - 100 mg/dL Blood Venous blood specimen / Unknown Result [facility] Provider LAB BLOOD ORDERABLES Stephie l Result * Colonoscopy (07/02/2021) Pathologist [facility] Colonoscopy No interpreta tion,abstr acted Anatomical Region Laterality Modality Other [facility] Final Result * SCREENING MAMMOGRAPHY BI 2-VIEW BREAST INC CAD (05/01/2021 4:43 PM EDT) Anatomical Region Laterality Modality Radiographic Katt ging 03/27/2021 1:48 PM EDT Narrative 05/02/2021 10:27 AM EDT This is a summary report. The complete report is available in the patient's medical record. If you cannot access the medical record, please contact the sending organization for a detailed fax or copy. Full field digital screening 2D and tomosynthesis mammography, reviewed with CAD and compared to previous. The breasts are composed of fatty and fibroglandular tissue. No suspicious mass, architectural distortion or suspicious calcifications are identified. There are bilateral stable benign-appearing calcifications. IMPRESSION: : No mammographic evidence of malignancy. BI-RADS 2, benign findings. 5 year breast cancer risk assessment 2.6 % Lifetime breast cancer risk assessment 16.1 % Breast cancer risk category Moderate (15% - 20%) Procedure Note Sona Ojeda MD - 09/29/2022 This is a summary report. The complete report is available in thepatient's medical record. If you cannot access the medical record, pleasecontact the sending organization for a detailed fax or copy. Full field digital screening 2D and tomosynthesis mammography, reviewedwith CAD and compared to previous. The breasts are composed of fatty andfibroglandular tissue. No suspicious mass, architectural distortion orsuspicious calcifications are identified. There are bilateral stablebenign-appearing calcifications. IMPRESSION: : No mammographic evidence of malignancy. BI-RADS 2, benign findings. 5 year breast cancer risk assessment 2.6 % Lifetime breast cancer risk assessment 16.1 % Breast cancer risk category Moderate (15% - 20%) Result [facility] Edith Wong MD IMG XR PROCEDURES Final Resu lt * Cervical Cancer Screening: HPV (01/17/2019) [facility] Cervical Cancer Screening: HPV Negative Abstracted Result [facility] Provider HEALTH MAINTENANCE Final Result * Hepatitis C Screening (09/09/2018) [facility] Hepatitis C Screening Abstracted Result [facility] Provider HEALTH MAINTENANCE Final Result * HIV Screening (03/22/2006) [facility] HIV Screening Abstracted Result [facility] Historical Provider HEALTH MAINTENANCE Final Result from Last 3 Months or Most Recently Relevant to Health Maintenance Insurance [employer] MEDICARE Member Subscriber Plan / Payer (Ef fective 2022-Present) Name:SHAMA REYES Relation to Subscriber:Self Name:Shama Reyes Payer ID:[id number] Group ID:[id number] Type:Not on file Address: [address] [place] [address] Advance Directives Documents on File Type Date Recorded 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 Do not modify or discontinue any currently active code status orders. 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
--- OUTSIDE RECORDS SUMMARY | 2025-06-14 14:48 | XMS_ITS | Encounter Summary ---
Author Organization [facility] Address [address] [place] [address] Care Team Providers Care Guest Relations Agent Name Role Phone Community, Pcp Unavailable Unavailable Edith Wong MD Primary Care Provider Unavail able Monse Flores MD Primary Care Provider [phone] Encounter Details Date Type Department Care Team Description 11/24/2019 Release of Information Medical Records [address] [place] [address] Abstract, Provider Social History Tobacco Use Types [...] on filedocumented in this encounter Care Teams Guest Relations Agent Relationship Specialty Start Date End Date Edith Wong MD PCP - General Internal Medicine 08/29/19 09/11/21 Monse Flores MD [address] [place] [address] [id number] PCP - General Internal Medicine 09/12/21 [facility], [facility] Internal Medicine 11/23/17 documented as of this encounter
--- OUTSIDE RECORDS SUMMARY | 2025-06-14 14:48 | XMS_ITS | Encounter Summary ---
Author Organization [facility] Address [address] [place] [address] Care Team Providers Care Gusset Ripper Name Role Phone Community, Pcp Unavailable Unavailable Edith Wong MD Primary Care Provider Unavail able Monse Flores MD Primary Care Provider [phone] Reason for Visit * Reason Onset Date Comments refill request 06/14/2020 Encounter Details Date Type Department Care Team Description 06/14/2020 Refill Adult Medicine [address] [address] Edith Wong MD refill request Social History Tobacco Use Types Packs/Day Years [...] Telephone Encounter - Francia Roblero M.A. - 06/14/2020 4:42 PM EDT [facility] filled on 03/13/20 with 3 refills * Telephone Encounter - Liana Robles - 06/14/2020 4:35 PM EDT Patient would like script to be: E-PRESCRIBED/FAXED TO PHARMACY WHEN WAS THE PATIENT'S LAST APPOINTMENT IN ADULT MEDICINE? 03/19/20 WHEN WAS THE LAST TIME THE PATIENT SAW THEIR PCP? 12/13/19 Does patient have an upcoming appointment? Yes 06/21/20 (THE MEDICATION REQUESTED IS ON THE MED LIST ABOVE) All of the medications requested were on the CURRENT MEDS list Did you check the Pharmacy information above?: NO Patient wants: 30 -day supply Is this a mail order prescription request ? NO If the refill is from a FAXED refill request what is the RX # listed on the fax? N/A Patients current insurance carrier is: Payor: [employer] FFS / Plan: [employer] / Product Type: MEDICAID RISK documented in this encounter Plan of Treatment Not on file documented as of this encounter Visit Diagnoses Not on filedocumented in this encounter Care Teams Gusset Ripper Relationship Specialty Start Date End Date Edith Wong MD PCP - General Internal Medicine 08/29/19 09/11/21 Monse Flores MD [address] [place] [address] PCP - General Internal Medicine 09/12/21 [facility] 11/23/17 documented as of this encounter
--- OUTSIDE RECORDS SUMMARY | 2025-06-14 14:48 | XMS_ITS | Encounter Summary ---
Author Organization [facility] Address [address] [place] [address] Care Team Providers Care Histologic Technician Name Role Phone Community, Pcp Unavailable Unavailable Monse Flores MD Primary Care Provider [phone] Encounter Details Date Type Department Care Team Description 09/17/2021 Telephone Dermatology - [address] [phone] Lara Pacheco PA-C Social History Tobacco Use Types Packs/Day [...] or suspected to have Coronavirus / COVID-19? No / Unsure 09/17/2021 12:45 PM EST documented as of this encounter Plan of Treatment Not on file documented as of this encounter Visit Diagnoses Not on filedocumented in this encounter Care Teams Histologic Technician Relationship Specialty Start Date End Date Monse Flores MD [address] [place] [address] PCP - General Internal Medicine 09/12/21 [facility], [facility] Internal Medicine 11/23/17 documented as of this encounter
--- OUTSIDE RECORDS SUMMARY | 2025-06-14 14:48 | XMS_ITS | Encounter Summary ---
Author Organization [facility] Address [address] [place] [address] Care Team Providers Care Tobacco Stripper Hand Name Role Phone Community, Pcp Unavailable Unavailable Lashell Villanueva MD Primary Care Provider Unav ailable Edith Wong MD Primary Care Provider Unavail able Monse Flores MD Primary Care Provider [phone] Reason for Visit * Reason Comments E-prescribe Rx Request Encounter Details Date Type Department Care Team Description 04/05/2019 Refill Adult Medicine [address] [address] Edith Wong MD E-prescribe Rx Request Social [...] Telephone Encounter - Francia Roblero M.A. - 04/06/2019 7:38 AM EDT Lab Results Component Value Date HGBA1C 9.6 11/10/2018 MALBUR 0.9 09/05/2018 MALBCR 6.0 09/05/2018 CHOL 157 03/14/2018 LDL 72 03/14/2018 HDL 60 03/14/2018 TRIG 124 03/14/2018 GLU 60 12/12/2018 CREAT 0.66 12/12/2018 Pt is seen by Dr Wong * Telephone Encounter - Obdulia Ramirez - 04/06/2019 7:35 AM EDT Patient would like script to be: E-PRESCRIBED/FAXED TO PHARMACY WHEN WAS THE PATIENT'S LAST APPOINTMENT IN ADULT MEDICINE? [id number] WHEN WAS THE LAST TIME THE PATIENT SAW THEIR PCP? Same as above Does patient have an upcoming appointment? [facility]ill request. Appt due (THE MEDICATION REQUESTED IS ON THE MED [...] N/A Patients current insurance carrier is: Payor: [employer] FFS / Plan: [facility] ALLIANCE / Product Type: MEDICAID RISK documented in this encounter Plan of Treatment Not on file documented as of this encounter Visit Diagnoses Not on filedocumented in this encounter Care Teams Tobacco Stripper Hand Relationship Specialty Start Date End Date Lashell Villanueva MD PCP - General Internal Medicine 03/29/19 9 Edith Wong MD PCP - General Internal Medicine 08/29/19 09/11/21 Monse Flores MD [address] [place] [address] PCP - General Internal Medicine 09/12/21 [facility], Pcp Internal Medicine 11/23/17 documented as of this encounter
--- OUTSIDE RECORDS SUMMARY | 2025-06-14 14:48 | XMS_ITS | Encounter Summary ---
Author Organization [facility] Address [address] [place] [address] Care Team Providers Care Skiver Uppers Or Linings Name Role Phone Community, Pcp Unavailable Unavailable Edith Wong MD Primary Care Provider Unavail able Lashell Villanueva MD Primary Care Provider Unav ailable Edith Wong MD Primary Care Provider Unavail able Monse Flores MD Primary Care Provider [phone] Encounter Details Date Type Department Care Team Description 11/01/2018 Telephone Adult [address] [address] Edith Wong MD Social History Tobacco Use [...] Telephone Encounter - Edith Wong MD - 11/01/2018 3:35 PM EST Did not receive paperwork yet * Telephone Encounter - Mary Anne Tadeo - 11/01/2018 9:40 AM EST Patient states she walked in today at 8:[address] Melton she states DCF faxed over paperwork to her. She wants to talk about this paperwork and explain why it is coming documented in this encounter Plan of Treatment Not on file documented as of this encounter Visit Diagnoses Not on filedocumented in this encounter Care Teams Skiver Uppers Or Linings Relationship Specialty Start Date End Date Edith Wong MD PCP - General Internal Medicine 10/31/18 03/28/19 Lashell Villanueva MD PCP - General Internal Medicine 03/29/19 9 Edith Wong MD PCP - General Internal Medicine 08/29/19 09/11/21 Monse Flores MD [address] [place] [address] PCP - General Internal Medicine 09/12/21 [facility] Internal Medicine 11/23/17 documented as of this encounter
--- OUTSIDE RECORDS SUMMARY | 2025-06-14 14:48 | XMS_ITS | Encounter Summary ---
Author Organization [email or web address] Address [address] [place] [address] Care Team Providers Care Rn Cardiovascular Name Role Phone Community, Pcp Unavailable Unavailable Monse Flores MD Primary Care Provider [phone] Encounter Details Date Type Department Care Team Description 07/13/2023 Old Medical Records Medical Records [address] [place] [address] Raymond Vee Social History Tobacco Use Types Packs/Day Years [...] on filedocumented in this encounter Care Teams Rn Cardiovascular Relationship Specialty Start Date End Date Monse Flores MD [address] [place] [id number] PCP - General Internal Medicine 09/12/21 [facility], Pcp Internal Medicine 11/23/17 documented as of this encounter
--- OUTSIDE RECORDS SUMMARY | 2025-06-14 14:48 | XMS_ITS | Encounter Summary ---
Author Organization [facility] Address [address] [place] [address] Care Team Providers Care Home Supervisor Name Role Phone Community, Pcp Unavailable Unavailable Edith Wong MD Primary Care Provider Unavail able Lashell Villanueva MD Primary Care Provider Unav ailable Edith Wong MD Primary Care Provider Unavail able Monse Flores MD Primary Care Provider [phone] Encounter Details Date Type Department Care Team Description 12/05/2018 Orders Only Gastroenterology - [address] [place] [address] Ena Cui MD NAFLD (nonalcoholic fatty liver disease) (Primary Dx) Social History Tobacco Use Types Packs/Day Years [...] on file documented as of this encounter Results * (ABNORMAL) HEPATIC FUNCTION (LIVER) PANEL (12/12/2018 10:01 AM EST) BILIRUBIN DIRECT 0.5(H) 0.0 - 0.3 mg/dL 12/12/2018 1:49 PM EST [facility] BILIRUBIN INDIRECT 0.3 0.0 - 1.1 mg/dL 12/12/2018 1:49 PM EST [facility] 12/12/2018 10:0 1 AM EST 12/12/2018 10:03 AM EST Ena Cui MD LAB [facility] documented in this encounter Visit Diagnoses Diagnosis NAFLD (nonalcoholic fatty liver disease)- Primary Other chronic nonalcoholic liver disease documented in this encounter Care Teams Home Supervisor Relationship Specialty Start Date End Date Edith Wong MD PCP - General Internal Medicine 10/31/18 03/28/19 Lashell Villanueva MD PCP - General Internal Medicine 03/29/19 9 Edith Wong MD PCP - General Internal Medicine 08/29/19 09/11/21 Monse Flores MD [address] [place] [address] PCP - General Internal Medicine 09/12/21 [facility] Internal Medicine 11/23/17 documented as of this encounter
--- OUTSIDE RECORDS SUMMARY | 2025-06-14 14:48 | XMS_ITS | Encounter Summary ---
Author Organization [facility] Address [address] [place] [address] Care Team Providers Care Waterproof Bag Sewer Name Role Phone Community, Pcp Unavailable Unavailable Edith Wong MD Primary Care Provider Unavail able Monse Flores MD Primary Care Provider [phone] Encounter Details Date Type Department Care Team Description 01/24/2021 Refill Adult Medicine [address] [address] Katelyn Tracey PA-C [address] [place] [address] Social History Tobacco Use Types Packs/Day Years [...] encounter Miscellaneous Notes * Telephone Encounter - Corie Casey - 01/24/2021 2:59 PM EDT Date of last office visit 08/05/20, no pended appt. Lab Results Component Value Date HGBA1C 9.1 12/13/2019 MALBUR 0.9 09/05/2018 MALBCR 6.0 09/05/2018 CHOL 167 12/13/2019 LDL 72 12/13/2019 HDL 79 12/13/2019 TRIG 81 12/13/2019 GLU 224 12/13/2019 CREAT 0.73 12/13/2019 documented in this encounter Plan of Treatment Not on file documented as of this encounter Visit Diagnoses Not on filedocumented in this encounter Care Teams Waterproof Bag Sewer Relationship Specialty Start Date End Date Edith Wong MD PCP - General Internal Medicine 08/29/19 09/11/21 Monse Flores MD [address] [place] [address] PCP - General Internal Medicine 09/12/21 [facility], [facility] Internal Medicine 11/23/17 documented as of this encounter
--- OUTSIDE RECORDS SUMMARY | 2025-06-14 14:48 | XMS_ITS | Encounter Summary ---
Author Organization [facility] Address [address] [place] [address] Care Team Providers Care Nuclear Equipment Research Engineer Name Role Phone Community, Pcp Unavailable Unavailable Lashell Villanueva MD Primary Care Provider Unav Edith Davis MD Primary Care Provider Unavail able Monse Flores MD Primary Care Provider [phone] Reason for Visit * Reason Onset Date Comments refill request 05/25/2019 Encounter Details Date Type Department Care Team Description 05/25/2019 Refill Respiratory and Diabetes Medicaid/ACO Pharmacist [address] [place] [address] Lashell Villanueva MD refill request Social History Tobacco Use [...] encounter Miscellaneous Notes * Telephone Encounter - Rona Chan M.A. - 05/25/2019 11:30 AM EDT Faxed to pharmacy * Telephone Encounter - Geraldine Almodovar L.P.N. - 05/25/2019 11:16 AM EDT Last office visit 02/06/19 Lab Results Component Value Date HGBA1C 9.6 11/10/2018 MALBUR 0.9 09/05/2018 MALBCR 6.0 09/05/2018 CHOL 157 03/14/2018 LDL 72 03/14/2018 HDL 60 03/14/2018 TRIG 124 03/14/2018 GLU 60 12/12/2018 CREAT 0.66 12/12/2018 * Telephone Encounter - Cain Haynes.D - 05/25/2019 10:36 AM EDT Please consider refilling script(s) in light of the [facility] formulary changes. Cain HaynesD. Transition of Care Pharmacist [facility] [address] [place], [place] [phone] [email or web address] documented in this encounter Plan of Treatment Not on file documented as of this encounter Visit Diagnoses Not on filedocumented in this encounter Care Teams Nuclear Equipment Research Engineer Relationship Specialty Start Date End Date Lashell Villanueva MD PCP - General Internal Medicine 03/29/19 9 Edith Wong MD PCP - General Internal Medicine 08/29/19 09/11/21 Monse Flores MD [address] [place] [address] PCP - General Internal Medicine 09/12/21 [facility] Internal Medicine 11/23/17 documented as of this encounter
--- OUTSIDE RECORDS SUMMARY | 2025-06-14 14:49 | XMS_ITS | Encounter Summary ---
Author Organization [facility] Address [address] [place] [address] Care Team Providers Care Licensing Court Magistrate Name Role Phone Community, Pcp Unavailable Unavailable Edith Wong MD Primary Care Provider Unavail able Monse Flores MD Primary Care Provider [phone] Encounter Details Date Type Department Care Team Description 01/02/2021 [facility] Medical Records [address] [place] [address] [facility] Social History Tobacco Use Types Packs/Day Years [...] on filedocumented in this encounter Care Teams Licensing Court Magistrate Relationship Specialty Start Date End Date Edith Wong MD PCP - General Internal Medicine 08/29/19 09/11/21 Monse Flores MD [address] [place] [phone] PCP - General Internal Medicine 09/12/21 [facility], Pcp Internal Medicine 11/23/17 documented as of this encounter
== END 2025-06-14 15:02 | disposition home or self-care (01) ==
LOC: HO.HMCC 13:31
PROVIDERS: PCP Internal Medicine; Visit Provider Physician Assistant
DX: D64.9 Anemia, unspecified (principal); Z09 Encounter for follow-up examination after completed treatment for conditions other than malignant neoplasm; I63.9 Cerebral infarction, unspecified

== ENCOUNTER 2025-06-26 08:02 | Outpatient (AMB) | payer OTHER, SELFPAY ==
[2025-06-26 08:15] VITALS: BP 110/64; PULSE 61; RESP 16; TEMP 36.7; O2SAT 98
--- NOTE | 2025-06-26 08:15 | A.OFFPC_ITS ---
Vital Signs 06/26/25 08:15 BMI Reason not done Patient refused/unable BP 110/64 Blood Pressure Location Lt brachial Position Sitting Respiration 16 Pulse 61 Pulse Source Pulse Oximeter Temp 98.0 F Temp Source Oral Pulse Oximetry (%) 98 Oxygen Delivery Method Room Air Intake Visit Reasons: Congestive heart failure Intake Note: Pt is here today for a HDF [facility] CHF Allergies No Known Allergies Allergy (Verified 06/26/25 08:48) Medication List - Last Reconciled 06/26/25 by Anel Barrera MD acetaminophen 325 mg PO TID PRN albuterol sulfate 90 mcg/actuation (Ventolin HFA) 2 puffs inhalation Q4-6H PRN atorvastatin 80 mg PO DAILY [Bath strips As directed] [bed rail As directed] [bed wedge As directed] blood sugar diagnostic (FreeStyle Lite Strips) As directed- checks 4 X/day blood-glucose meter (FreeStyle Lite Meter kit) As directed checks 4 X/dasy blood-glucose sensor ([employer] G7 Sensor device) Use daily As directed to monitor glucose. change q 10 days bupropion HCl XL 150 mg PO DAILY buspirone 15 mg PO BID furosemide 40 mg PO DAILY glipizide 5 mg PO BID glucose (Dex4 Glucose) 16 grams (4 x 4 gram) PO Q15M PRN hydroxyzine HCl 10 mg PO BID PRN insulin glargine (Lantus Solostar U-100 Insulin) 10 units (0.1 mL) subcut QPM insulin lispro (Humalog KwikPen (U-100) Insulin) 5 units (0.05 mL) subcut TID isosorbide mononitrate ER 30 mg PO DAILY lancets (FreeStyle Lancets) As directed lidocaine 4% 1 patch topical BID metoprolol tartrate 25 mg PO BID multivitamin 1 tab PO DAILY pantoprazole 40 mg PO QAM pen needle, diabetic (BD Ultra-Fine Mini Pen Needle) As directed 4 times a day [Raised commode As directed] rivaroxaban (Xarelto) mg PO BID ropinirole 0.25 mg PO BID [Safety bar For bathroom] ticagrelor 90 mg PO BID trazodone 50 mg PO BEDTIME PRN Tobacco use date assessed: 06/26/25 Dental Screening Dental Screen Date: 12/18/24 [facility] Medical History (Updated 06/26/25 @ 09:13 by Anel Barrera MD) Iron deficiency anemia History of opioid abuse Depression with anxiety Peripheral vascular disease Essential hypertension Cigarette smoker motivated to quit Uncontrolled type 2 diabetes mellitus with hyperglycemia Diabetes mellitus with nephropathy Annual visit for general adult medical examination with abnormal findings section wound complications Encounter to establish care Type II diabetes mellitus Diabetes COPD (chronic obstructive pulmonary disease) Surgical History History of above-knee amputation of right lower extremity H/O neck surgery History of mandibular surgery H/O foot surgery H/O hernia repair H/O section H/O angioplasty History of hysterectomy History of colonoscopy History of laparoscopic adjustable gastric banding S/P bilateral breast reduction S/P carpal tunnel release Status post cataract extraction Family History Sister Breast cancer Mother Breast cancer Substance use disorder Mental health disorder Brother Substance use disorder Brother Substance use disorder Sister No problems noted. 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 Cognitive needs: Yes Hearing needs: No Vision needs: Yes (Glaucoma and cataracts being treated) Questionnaire Thrive Questionnaire Date Thrive assessed: 12/12/24 I am a: Patient What is your living situation today?: I have a steady place to live Within the past 12 months, did the food you bought not last and you didn't have the money to get more?: Never true Within the past 12 months, did you worry whether your food would run out before you got money to buy more?: Never true Do you have trouble paying for medicines?: No Do you have trouble getting transportation to medical appointments?: No Do you have trouble paying your heating and electricity bill?: I choose not to answer this question Do you have trouble taking care of your child, family member or friend?: No Do you have trouble with day-to-day activities such as bathing, preparing meals, shopping, managing finances, etc.?: Yes Are you currently unemployed and looking for a job?: No Are you interested in more education?: Yes Currently or been in a relationship where the following occur: I choose not to answer THRIVE Score: 0 STAS-7 AMB Questionnaire STAS-7 Date STAS - 7 assessed: 12/29/22 Source: Developed by Drs. Jun Ceja, Anisa Goode, Sergey Vargas and colleagues, with an educational dakota from [employer]. Physical exam (Primary Care) Vital Signs: Last Vital Signs Temp 98.0 F 06/26/25 08:15 Pulse 61 06/26/25 08:15 Resp 16 06/26/25 08:15 BP 110/64 06/26/25 08:15 Pulse Ox 98 06/26/25 08:15 Oxygen Delivery Method Room Air 06/26/25 08:15 Tobacco/Smoking Status: Tobacco use Status Tobacco use date assessed 06/26/25 06/26/25 08:20 Patient Tobacco Use Status Current someday Tobacco 06/26/25 08:20 Tobacco use type Cigarette 06/26/25 08:20 e-Cigarette/Vaping Use Never Used 06/26/25 08:20 Thrive Assessment: Date of Thrive Assessment Date Thrive assessed 12/12/24 06/26/25 08:20 Currently or been in a relationship where the following occur: I choose not to answer Office Procedures Flu Questionnaire Does the patient have a severe egg allergy?: No Does the patient have severe life threatening allergies?: No Does the patient have a fever or illness today?: No Has the patient ever had Guillain-[place] Syndrome?: No Has the patient ever had any past reaction to a flu shot?: No Immunizations Fluarix [id number] (PF) 45 mcg (15 mcg x 3)/0.5 mL IM syringe Performing Provider: Anel Barrera MD Performing Location: [facility] Administered by: Yumiko Morales CMA on 06/26/25 09:21 Dose Route Admin Location Dispensed Lot Number Expiration Date [facility] President And Cmo 0.5 mL IM Left Deltoid 0.5 mL 2CASM 04/09/26 [id number] [employer] VIS Given Date VIS Provided VIS Publication Date 06/26/25 Single Vaccine 24 Eligibility Eligibility Date Funding Source Not [facility] Eligible 06/26/25 Private Coding Diagnoses Iron deficiency anemia D50.9 Mixed hyperlipidemia E78.2 Hyperlipidemia type: mixed hyperlipidemia Diabetes mellitus with nephropathy E11.21 Essential hypertension I10 Peripheral vascular disease I73.9 Depression with anxiety F41.8 Coronary artery disease I25.10 Acute CVA (cerebrovascular accident) I63.9 Assessment & Plan Assessment & Plan (1) Iron deficiency anemia: Code(s): D50.9 - Iron deficiency anemia, unspecified Category: Medical (2) Hyperlipidemia: Code(s): E78.5 - Hyperlipidemia, unspecified Category: Medical Qualifiers: Hyperlipidemia type: mixed hyperlipidemia Qualified Code(s): E78.2 - Mixed hyperlipidemia (3) Diabetes mellitus with nephropathy: Code(s): E11.21 - Type 2 diabetes mellitus with diabetic nephropathy Category: Medical (4) Essential hypertension: Code(s): I10 - Essential (primary) hypertension Category: Medical (5) Peripheral vascular disease: Comment: ff[facility] vascular [facility] Code(s): I73.9 - Peripheral vascular disease, unspecified Category: Medical (6) Depression with anxiety: Comment: chastity Gregory at [facility] Code(s): F41.8 - Other specified anxiety disorders Category: Medical (7) Coronary artery disease: Code(s): I25.10 - Atherosclerotic heart disease of resighini coronary artery without angina pectoris Category: Medical (8) Acute CVA (cerebrovascular accident): Code(s): I63.9 - Cerebral infarction, unspecified Category: Medical Orders: Orders Basic Metabolic Panel Fasting 06/30/25 D50.9 - Iron deficiency anemia, unspecified, E11.21 - Type 2 diabetes mellitus with diabetic nephropathy, E78.2 - Mixed hyperlipidemia, F41.8 - Other specified anxiety disorders, I10 - Essential (primary) hypertension, I25.10 - Atherosclerotic heart disease of resighini coronary artery without angina pectoris, I63.9 - Cerebral infarction, unspecified, I73.9 - Peripheral vascular disease, unspecified Aspartate Amino Transferase 06/30/25 D50.9 - Iron deficiency anemia, unspecified, E11.21 - Type 2 diabetes mellitus with diabetic nephropathy, E78.2 - Mixed hyperlipidemia, F41.8 - Other specified anxiety disorders, I10 - Essential (primary) hypertension, I25.10 - Atherosclerotic heart disease of resighini coronary artery without angina pectoris, I63.9 - Cerebral infarction, unspecified, I73.9 - Peripheral vascular disease, unspecified Lipid Panel 06/30/25 D50.9 - Iron deficiency anemia, unspecified, E11.21 - Type 2 diabetes mellitus with diabetic nephropathy, E78.2 - Mixed hyperlipidemia, F41.8 - Other specified anxiety disorders, I10 - Essential (primary) hypertension, I25.10 - Atherosclerotic heart disease of resighini coronary artery without angina pectoris, I63.9 - Cerebral infarction, unspecified, I73.9 - Peripheral vascular disease, unspecified Complete Blood Count Auto Diff 06/30/25 D50.9 - Iron deficiency anemia, unspecified, E11.21 - Type 2 diabetes mellitus with diabetic nephropathy, E78.2 - Mixed hyperlipidemia, F41.8 - Other specified anxiety disorders, I10 - Essential (primary) hypertension, I25.10 - Atherosclerotic heart disease of resighini coronary artery without angina pectoris, I63.9 - Cerebral infarction, unspecified, I73.9 - Peripheral vascular disease, unspecified Alanine Aminotransferase 06/30/25 D50.9 - Iron deficiency anemia, unspecified, E11.21 - Type 2 diabetes mellitus with diabetic nephropathy, E78.2 - Mixed hyperlipidemia, F41.8 - Other specified anxiety disorders, I10 - Essential (primary) hypertension, I25.10 - Atherosclerotic heart disease of resighini coronary artery without angina pectoris, I63.9 - Cerebral infarction, unspecified, I73.9 - Peripheral vascular disease, unspecified Vitamin D 25-OH Total 06/30/25 D50.9 - Iron deficiency anemia, unspecified, E11.21 - Type 2 diabetes mellitus with diabetic nephropathy, E78.2 - Mixed hyperlipidemia, F41.8 - Other specified anxiety disorders, I10 - Essential (primary) hypertension, I25.10 - Atherosclerotic heart disease of resighini coronary artery without angina pectoris, I63.9 - Cerebral infarction, unspecified, I73.9 - Peripheral vascular disease, unspecified Vitamin B12 and Folate 06/30/25 D50.9 - Iron deficiency anemia, unspecified, E11.21 - Type 2 diabetes mellitus with diabetic nephropathy, E78.2 - Mixed hyperlipidemia, F41.8 - Other specified anxiety disorders, I10 - Essential (primary) hypertension, I25.10 - Atherosclerotic heart disease of resighini coronary artery without angina pectoris, I63.9 - Cerebral infarction, unspecified, I73.9 - Peripheral vascular disease, unspecified IRON PROFILE 06/30/25 D50.9 - Iron deficiency anemia, unspecified, E11.21 - Type 2 diabetes mellitus with diabetic nephropathy, E78.2 - Mixed hyper lipidemia, F41.8 - Other specified anxiety disorders, I10 - Essential (primary) hypertension, I25.10 - Atherosclerotic heart disease of resighini coronary artery without angina pectoris, I63.9 - Cerebral infarction, unspecified, I73.9 - Peripheral vascular disease, unspecified B Type Natriuretic Peptide 06/30/25 D50.9 - Iron deficiency anemia, unspecified, E11.21 - Type 2 diabetes mellitus with diabetic nephropathy, E78.2 - Mixed hyperlipidemia, F41.8 - Other specified anxiety disorders, I10 - Essential (primary) hypertension, I25.10 - Atherosclerotic heart disease of n ative coronary artery without angina pectoris, I63.9 - Cerebral infarction, unspecified, I73.9 - Peripheral vascular disease, unspecified Influenza [id number] Immunization Today Z23 - Encounter for immunization Medications: New isosorbide mononitrate ER 30 mg PO DAILY 30 tabs 0RF ferrous sulfate (Iron (ferrous sulfate)) 325 mg PO DAILY 90 tabs 1RF D50.9 - Iron deficiency anemia, unspecified
== END 2025-06-26 14:44 | disposition home or self-care (01) ==
LOC: HO.HMCC 08:02
PROVIDERS: PCP Internal Medicine; Visit Provider Internal Medicine
DX: Z23 Encounter for immunization (principal)

== ENCOUNTER → 2025-06-26 08:02 | Outpatient (BNVA) | payer OTHER, SELFPAY | PROVIDERS: PCP Internal Medicine; Visit Provider Internal Medicine | DX: E78.2 Mixed hyperlipidemia (principal); D50.9 Iron deficiency anemia, unspecified; E11.21 Type 2 diabetes mellitus with diabetic nephropathy; E11.51 Type 2 diabetes mellitus with diabetic peripheral angiopathy without gangrene; I10 Essential (primary) hypertension; F41.8 Other specified anxiety disorders; I25.10 Atherosclerotic heart disease of native coronary artery without angina pectoris; Z23 Encounter for immunization; Z86.79 Personal history of other diseases of the circulatory system; Z86.73 Personal history of transient ischemic attack (TIA), and cerebral infarction without residual deficits | CPT/HCPCS: 90471; 90656; 99212 ==

== ENCOUNTER 2025-06-30 08:19 | Outpatient (REF) | payer OTHER, SELFPAY ==
--- OUTSIDE RECORDS SUMMARY | 2024-04-10 09:00 | XMS_ITS ---
Author Organization [facility] Address 81 [facility] [place] [address] Care Team Providers Care Machinist Supervisor Name Role Phone Bruce ANDREW, Anel Irene Primary Care Provider Un available Sheela Day Unavailable [phone] Jun Goss Unavailable Unavailable REASON FOR VISIT DR HOLLIS Encounters Encounter Location Date Provider Diagnosis [address] [address] 04/10/2024 Sheela Day Plan Of Treatment No Information Progress Notes * Shama ANAND ADOB:1965 (60 yo F)Acc No.[id number]:04/10/2024 Progress Note Patient: Shama ARTEAGA Provider: Shukri Day DPM :1965 A ge:58 Y S ex:Female Date:04/10/2024 Address:[address] [place], [place] [phone] Pcp:Suman Alas Subjective: * Chief Complaints: * [address] HOLLIS. * Medical History: Objective: * Vitals: Assessment: Plan: * Treatment: * Images: * The named appointment provid er may or may not be the originator of this progress note, and it is not deemed complete until electronically signed by the appointment provider. Sign off status: Pending * Provider: Shukri Day DPM Date: 04/10/2024 Generated for Printi ng/Faxing/eTransmitting on: 0 06/30/2025 08:24 AM EDT
--- OUTSIDE RECORDS SUMMARY | 2024-04-17 06:00 | XMS_ITS ---
Author Organization [facility] Address [address] [facility] [place] [address] Care Team Providers Care Medical Social Consultant Name Role Phone Bruce ANDREW, Anel Irene Primary Care Provider Un available Sheela Day Unavailable [phone] Jun Goss Unavailable Unavailable Encounters Encounter Location Date Provider Diagnosis [address] [address] 04/17/2024 Sheela Day Plan Of Treatment No Information Progress Notes * Shama ANAND ADOB:1965 (60 yo F)Acc No.[id number]:04/17/2024 Progress Note Patient: Shama ARTEAGA Provider: Shukri Day DPM :1965 A ge:58 Y S ex:Female Date:04/17/2024 Address:[address] [place], [place] [phone] Pcp:Suman Alas Subjective: * Chief Complaints: * [...] Date: 04/17/2024 Generated for Madinai teri/Ricardo/eTransmitting on: 06/30/2025 08:25 AM EDT
--- OUTSIDE RECORDS SUMMARY | 2024-08-07 10:30 | XMS_ITS ---
Author Organization [facility] Address [address] [facility] [place] [address] Care Team Providers Care A Operator Name Role Phone Bruce ANDREW, Anel Irene Primary Care Provider Un available Sheela Day Unavailable [phone] Jun Goss Unavailable Unavailable Encounters Encounter Location Date Provider Diagnosis [address] [address] 08/07/2024 Sheela Day Plan Of Treatment No Information Progress Notes * Shama ANAND ADOB:1965 (60 yo F)Acc No.[id number]:08/07/2024 Progress Note Patient: Shama ARTEAGA Provider: Shukri Day DPM :1965 A ge:59 Y S ex:Female Date:08/07/2024 Address:[address] [place], [place] [id number] Pcp:Suman Alas Subjective: * Chief Complaints: * * Medical History: Objective: * Vitals: Assessment: Plan: * Treatment: * Images: * The named appointment provid er may or may not be the originator of this progress note, and it is not deemed complete until electronically signed by the appointment provider. Sign off status: Pending * Provider: Shukri Day DPM Date: 1 Generated for Printi teri/Ricardo/eTransmitting on: 0 06/30/2025 08:25 AM EDT
--- OUTSIDE RECORDS SUMMARY | 2024-09-04 09:00 | XMS_ITS ---
Author Organization [facility] Address [address] [facility] [place] [address] Care Team Providers Care Assistant Professor Of Business Name Role Phone Bruce ANDREW, Anel Irene Primary Care Provider Un available Sheela Day Unavailable [phone] Jun Goss Unavailable Unavailable Encounters Encounter Location Date Provider Diagnosis [address] [address] 09/04/2024 Sheela Day Plan Of Treatment No Information Progress Notes * Shama ANAND ADOB:1965 (60 yo F)Acc No.[id number]:09/04/2024 Progress Note Patient: Shama ARTEAGA Provider: Shukri Day DPM :1965 A ge:59 Y S ex:Female Date:09/04/2024 Address:[address] [place], [place] [phone] Pcp:Suman Alas Subjective: * Chief Complaints: * * Medical History: Objective: * Vitals: Assessment: Plan: * Treatment: * Images: * The named appointment provid er may or may not be the originator of this progress note, and it is not deemed complete until electronically signed by the appointment provider. Sign off status: Pending * Provider: Shukri Day DPM Date: 1 11/04/2023 Generated for Printi teri/Ricardo/eTransmitting on: 0 06/30/2025 08:25 AM EDT
--- OUTSIDE RECORDS SUMMARY | 2025-06-30 08:25 | XMS_ITS | Patient Health Record ---
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 Name Role Phone Bruce ANDREW, Anel Irene Primary Care Provider Un available Sheela Day Unavailable [phone] Jun Goss Unavailable Unavailable Allergies No Known [...] Polyneuropathy due to type 2 diabetes mellitus (435089996) Type 2 diabetes mellitus with diabetic polyneuropathy (E11.42) Active confirmed Problem Polyneuropathy due to diabetes mellitus type I (726667112) Type 1 diabetes mellitus with diabetic polyneuropathy (E10.42) Active confirmed Problem Bilateral atherosclerosis of arteries of lower limbs (disorder) ([id number] ) Atherosclerosis of artery of both lower extremities (I70.203) Active confirmed Problem Polyneuropathy due to diabetes mellitus type I (049673053) Type 1 DM with polyneuropathy (E10.42) Active confirmed Problem Critical limb ischemia of right lower extremity (I70.221) Active confirmed Encounters Encounter Location Date Provider Diagnosis [facility] [address] [place] [address] 08/03/2024 Sheela Day [facility] [address] 09/04/2024 Sheela Day Plan Of Treatment No Information Insurance Providers Payer Name Payer Address Payer Phone Subscriber Number Group Number Insured Name Patient Relationship to Insured Coverage Start Date Coverage End Date [facility] [employer] Claims [address] [place] [address] [id number] Shama Reyes Self - patient is the [...]
--- OUTSIDE RECORDS SUMMARY | 2025-06-30 08:25 | XMS_ITS | Clinical Summary ---
Author Organization [facility] Address [address] [place] [address] Phone Care Team Providers Care Insights Manager Name Role Phone Anel Barrera MD Primary Care Provider Allergies Active Allergy Reactions Criticality Noted Date Comments Amitriptyline Other 09/05/2018 Tinnitus Medications busPIRone (BUSPAR) 10 mg tablet Take 1.5 tablets (15 mg total) by mouth 2 (two) times a day. 1 Active rOPINIRole (REQUIP) 0.25 mg tablet Take 1 tablet (0.25 mg total) by mouth 2 (two) times a day. TAKE 1 TABLET BY MOUTH TWICE A DAY 2 Active multivitamin (MULTIPLE VITAMINS ORAL) Take 1 [...] total) by mouth at bedtime. Active Lactobacillus acidoph-L.bulga r (FLORANEX) 1 million cell tablet Take 4 tablets by mouth 3 (three) times a day with meals. 120 tablet 5 Active lidocaine 4 % patch Apply 2 patches topically 1 (one) time each day. 30 patch 5 Active metoprolol tartrate (LOPRESSOR) 25 mg tablet Take 1 tablet (25 mg total) by mouth 2 (two) times a day. 60 each 5 05/24/20 26 Active rivaroxaban (XARELTO) 2.5 mg tabletIndicatio ns:CVA Take 1 tablet (2.5 mg total) by mouth 2 (two) times a day with meals. 60 tablet 5 Active glipiZIDE (GLUCOTROL) 5 mg tabletIndicatio ns:type 2 diabetes mellitus Take 1 tablet (5 mg total) by mouth 2 (two) times a day before meals. 60 each 11 5 05/24/20 26 Active furosemide (LASIX) 40 mg tablet Take 1 tablet (40 mg total) by mouth 1 (one) time each day. 30 each 5 Active albuterol HFA (PROAIR HFA ; PROVENTIL HFA ; VENTOLIN HFA) 90 mcg/actuation inhaler Inhale 2 puffs by mouth every 6 (six) hours if needed for wheezing or shortness of breath. Doses not specified for amount or frequency 6.7 g 5 Active buPROPion XL (WELLBUTRIN XL) 150 mg 24 hr tablet Take 1 tablet (150 mg total) by mouth 1 (one) time each day. Do not crush, chew, or split. 30 each 5 Active Active Problems Problem Noted Date Diagnosed Date Cerebrovascular accident ([facility] V24, [facility] V 28) 05/17/2025 Polysubstance abuse ([facility] V24, [facility] V28) 0 01/23/2021 Overview (09/29/2024): Using IV [...] Overdose of opiate or relate d narcotic ([facility] V24, [facility] V28) 04/06/2018 Overview (09/29/2024): 04/06/2018 Microalbuminuria 03/15/2018 Bipolar 1 disorder ([facility] V24, [facility] V28) Carpal tunnel syndrome 02/25/2018 Overview (09/29/2024): S/p release 2014 Hyperlipidemia associated wi th type 2 diabetes mellitus ([facility] V24, [facility] V28) 02/25/2018 Diabetic peripheral neuropathy ([facility] V24, [facility] V28) 02/25/2018 Diabetes mellitus type 2 wit h neurological manifestations ([facility] V24, [facility] V28) 11/07/2014 Nuclear sclerosis 10/30/2014 Overview (09/29/2024): Dr Kaur note 01-24-2008 Shoulder impingement syndrome 10/30/2014 Overview (09/29/2024): Tammy Singer note 02-19-2014 HTN (hypertension), benign 02/19/2009 Necrobiosis lipoidica diabet icorum ([facility] V24, [facility] V28) 02/01/2009 Posttraumatic stress disorder 07/16/2006 Type 2 diabetes mellitus ([facility] V24, [facility] V 28) 10/01/2005 Encounters Date Type Department Care Team Description 05/21/2025 Plan of Care Documentation [facility] [address] [place] [id number] 05/17/2025 3:56 PM EDT - 05/25/2025 12:35 PM EDT Hospital Encounter [facility] [address] [place] [phone] Gracie Merritt DO Cerebrovascular accident ([facility] V24, [facility] V28) [I63.9] (Primary Dx); Cerebrovascular accident (CVA), unspecified mechanism ([facility] V24, [facility] V28) Discharge Disposition: Home-Health Care Svc from [...] Surgery Date Site/Laterality Comments OTHER SURGICAL HISTORY 2001 PROCEDURE: HISTORICAL SUPRACERVICAL HYSTERECTOMY W/O BSO; COMMENT: fibroids HERNIA REPAIR 1991 PROCEDURE: HISTORICAL HERNIA REPAIR/ING OTHER SURGICAL HISTORY 04/2009 PROCEDURE: MD LAPS GASTRIC RESTRICTIVE PROCEDURE PLACE DEVICE; COMMENT: [place] [facility] [place]iscoe 224lbs starting wt HAND SURGERY PROCEDURE: HISTORICAL HAND SURGERY; COMMENT: Bilateral carpal tunnel release HERNIA REPAIR PROCEDURE: HISTORICAL HERNIA REPAIR/ING SECTION PROCEDURE: HISTORICAL ; COMMENT: x 2 BREAST REDUCTION 1981 Bilateral PROCEDURE: MD BREAST REDUCTION COLONOSCOPY 07/02/2021 PROCEDURE: HISTORICAL COLONOSCOPY; COMMENT: polyp Medical History Medical History Date Comments Bipolar 1 disorder ([facility] V24, [facility] V28) 02/25/2018 DX:Bipolar 1 disorder (HCC) Diabetes mellitus type 2 wit h neurological manifestations ([facility] V24, [facility] V28) 11/07/2014 DX:Diabetes mellitus type 2 with neurological manifestations (HCC) Diabetic peripheral neuropat hy ([facility] V24, [facility] V28) 02/25/2018 DX:Diabetic peripheral neur opathy (HCC) Type 2 diabetes mellitus wit h diabetic retinopathy ([facility] V24, [facility] V28) 10/01/2005 DX:Type 2 diabe noel mellitus with diabetic retinopathy (HCC) HTN (hypertension), benign 02/19/2009 DX:HT N (hypertension), benign Hyperlipidemia associated wi th type 2 diabetes mellitus ([facility] V24, [facility] V28) 02/25/2018 DX:Hyperlipidemia associated with type 2 diabetes mellitus (HCC) Necrobiosis lipoidica diabet icorum ([facility] V24, [facility] V28) 02/01/2009 DX:Necrobiosis lipoidica diabeticorum (HCC) Nuclear sclerosis 10/30/2014 DX:Nuclear scl erosis; COMMENT: Dr Kaur note 01-24-2009 Posttraumatic stress disorder 07/16/2006 DX :Posttraumatic stress disorder Shoulder impingement syndrome 10/30/2014 DX :Shoulder impingement syndrome; COMMENT: Tammy Singer note 02-19-2014 Tobacco abuse 03/14/2018 DX:Tobacco abuse Carpal tunnel syndrome 02/25/2018 DX:Carpal tunnel syndrome; COMMENT: S/p release 2014 Type 2 diabetes with nephrop athy ([facility] V24, [facility] V28) 03/15/2018 DX:Type 2 diabetes with nep hropathy (HCC) Microalbuminuria 03/15/2018 DX:Microalbumin uria Overdose of opiate or relate d narcotic ([facility] V24, [facility] V28) 04/06/2018 DX:Overdose of opiate or re lated narcotic ([facility]); COMMENT: 04/06/2018 Positive urine drug screen 09/05/2018 [...] Anemia of chronic disease 09/07/2018 Cerebrovascular accident ([facility] V24, [facility] V28) 05/17/2025 Family History Medical History Relation [...] Used Date Smoking Tobacco: Former Cigarettes 0.5 49.2 S tarted: 1976 Smokeless Tobacco: Never Alcohol [...] 09/29/2023 Cervical Cancer Screening: HPV 01/18/2024 01/17/2019 RSV Immunization Adult Patients (1 - Risk 60-74 years 1-dose series) 2025 COVID-19 Vaccine (2024- season) 2025 09/29/2023, 08/20/2022, 04/25/2022, Additional history exists Influenza Vaccine (#1) 2025 , 08/20/2022, 09/21/2021, [...] retinopathy without macular edema, bilateral (CMS/HCC V24, CMS/HCC V28) 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 [facility] Extra Tube Hold for add-ons. 05/24/2025 8:01 AM EDT [facility] Comment:Auto resulted. Blood Venous blood specimen / Unknown Venipuncture / Unknown 05/24/2025 5:51 AM EDT 05/24/2025 6:33 AM EDT us Gracie Merritt DO LAB BLOOD ORDERABLES Stephie l Result [facility] [address] [place] [address], * (ABNORMAL) CBC - Every 3 Days (05/24/2025 5:51 AM EDT) [facility] WBC 7.5 4.8 - 10.8 K/mcL LAB HEMETOLOGY METHOD 05/24/2025 7:12 AM EDT [facility] RBC 3.10(L) 3.80 - 4.80 M/mcL LAB HEMETOLOGY METHOD 05/24/2025 7:12 AM [facility] Hemoglobin 9.1(L) 11.5 - 16.0 g/dL LAB HEMETOLOGY METHOD 05/24/2025 7:12 AM EDT [facility] Hematocrit 28.7(L) 35.0 - 47.0 % LAB HEMETOLOGY METHOD 05/24/2025 7:12 AM EDT [facility] MCV 92.0 79.0 - 98.0 FL LAB HEMETOLOGY METHOD 05/24/2025 7:12 AM [facility] MCH 29.2 27.0 - 32.0 pcg LAB HEMETOLOGY METHOD 05/24/2025 7:12 AM [facility] MCHC 31.7(L) 32.0 - 37.0 g/dL LAB HEMETOLOGY METHOD 05/24/2025 7:12 AM EDT [facility] RDW 15.5(H) 11.0 - 15.0 % LAB HEMETOLOGY METHOD 05/24/2025 7:12 AM EDT [facility] Platelets 301 130 - 400 K/mcL LAB HEMETOLOGY METHOD 05/24/2025 7:12 AM EDT [facility] MPV 12.0(H) 7.0 - 11.0 FL LAB HEMETOLOGY METHOD 05/24/2025 7:12 AM EDT [facility] NRBC 0.0 <1.0 % LAB HEMETOLOGY METHOD 05/24/2025 7:12 AM EDT [facility] NRBC Absolute 0.00 <0.10 K/mcL LAB HEMETOLOGY METHOD 05/24/2025 7:12 AM EDT [facility] Blood Venous blood specimen / Unknown Venipuncture / Unknown 05/24/2025 5:51 AM EDT 05/24/2025 6:32 AM EDT us Gracie Merritt DO LAB BLOOD ORDERABLES Stephie l Result [facility] [address] [place] [address], * Troponin I high sensitivity (05/23/2025 3:27 PM EDT) High Sensitivity Troponin I 52 <=54 ng/L LAB CHEMISTRY METHOD 05/23/2025 4:30 PM EDT [facility] Blood Venous blood specimen / Unknown Venipuncture / Unknown 05/23/2025 3:27 PM EDT 05/23/2025 3:43 PM EDT Narrative [facility] - 05/23/2025 4:30 PM EDT High levels of biotin in samples may falsely decrease hsTroponin values. Use caution when interpreting hsTroponin results in patients taking biotin who exhibit renal impairment (eGFR <60) or in patients taking more than 20 mg/day of biotin. Carmen MERRILL LAB BLOOD ORDERABLES Final R esult Performing Organization Address [facility] Co de Phone Number [facility] ([facility]) [facility] [address] [place] [address], [place] [phone] * ECG 12 lead (05/23/2025 2:57 PM EDT) Ventricular Rate ECG 63 BPM GEMUSE Atrial Rate 63 BPM GEMUSE P-R Interval 136 ms GEMUSE QRS Duration 122 ms GEMUSE Q-T Interval 474 ms GEMUSE QTc 485 ms GEMUSE P Wave [place] 41 degrees GEMUSE R [place] 4 degrees GEMUSE T [place] 124 degrees GEMUSE ECG Interpretation Normal sinus rhythm Non-specific intra-ventricu lar conduction delay Nonspecific T wave abnormality Abnormal ECG No previous ECGs available Confirmed by ERIN PARIKH ([id number]) on 05/24/2025 7:33:18 PM GEMUSE 05/23/2025 2:57 PM EDT 05/24/2025 7:33 PM EDT Carmen MERRILL ECG ORDERABLES Final Result Performing Organization Address [facility] Co de Phone Number GEMUSE * XR Chest [...] Signed Date: 05/23/2025 13:28 ET Workstation ID: [id number] Transcribed By: Self Edit Transcribed Date: 05/23/2025 [...] Signed Date: 05/23/2025 13:28 ET Workstation ID: [id number] Transcribed By: Self Edit Transcribed Date: 05/23/2025 13:22 ET us Carmen MERRILL IMG XR PROCEDURES Final Resu lt * (ABNORMAL) CBC auto differential (05/23/2025 12:22 PM EDT) Only the most recent of5 resultswithin the time period is included. WBC 8.0 4.8 - 10.8 K/[facility] LAB HEMETOLOGY METHOD 05/23/2025 1:13 PM [facility] RBC 3.00(L) 3.80 - 4.80 M/mcL LAB HEMETOLOGY METHOD 05/23/2025 1:13 PM [facility] Hemoglobin 8.9(L) 11.5 - 16.0 g/dL LAB HEMETOLOGY METHOD 05/23/2025 1:13 PM [facility] Hematocrit 27.9(L) 35.0 - 47.0 % LAB HEMETOLOGY METHOD 05/23/2025 1:13 PM [facility] MCV 92.4 79.0 - 98.0 FL LAB HEMETOLOGY METHOD 05/23/2025 1:13 PM [facility] MCH 29.5 27.0 - 32.0 pcg LAB HEMETOLOGY METHOD 05/23/2025 1:13 PM [facility] MCHC 31.9(L) 32.0 - 37.0 g/dL LAB HEMETOLOGY METHOD 05/23/2025 1:13 PM [facility] RDW 15.6(H) 11.0 - 15.0 % LAB HEMETOLOGY METHOD 05/23/2025 1:13 PM [facility] Platelets 273 130 - 400 K/mcL LAB HEMETOLOGY METHOD 05/23/2025 1:13 PM [facility] MPV 11.9(H) 7.0 - 11.0 FL LAB HEMETOLOGY METHOD 05/23/2025 1:13 PM [facility] NRBC 0.0 <1.0 % LAB HEMETOLOGY METHOD 05/23/2025 1:13 PM [facility] NRBC Absolute 0.00 <0.10 K/mcL LAB HEMETOLOGY METHOD 05/23/2025 1:13 PM [facility] Neutrophils Relative 70.6 % LAB HEMETOLOGY METHOD 05/23/2025 1:13 PM [facility] Lymphocytes Relative 20.4 % LAB HEMETOLOGY METHOD 05/23/2025 1:13 PM [facility] Monocytes Relative 6.4 % LAB HEMETOLOGY METHOD 05/23/2025 1:13 PM [facility] Eosinophils Relative 1.3 % LAB HEMETOLOGY METHOD 05/23/2025 1:13 PM [facility] Basophils Relative 0.9 % LAB HEMETOLOGY METHOD 05/23/2025 1:13 PM [facility] Immature Granulocytes Relative 0.4 % LAB HEMETOLOGY METHOD 05/23/2025 1:13 PM [facility] Neutrophils Absolute 5.65 1.50 - 7.00 K/mcL LAB HEMETOLOGY METHOD 05/23/2025 1:13 PM [facility] Lymphocytes Absolute 1.63 1.00 - 5.00 K/mcL LAB HEMETOLOGY METHOD 05/23/2025 1:13 PM [facility] Monocytes Absolute 0.51 0.20 - 1.00 K/mcL LAB HEMETOLOGY METHOD 05/23/2025 1:13 PM [facility] Eosinophils Absolute 0.10 0.00 - 0.50 K/mcL LAB HEMETOLOGY METHOD 05/23/2025 1:13 PM [facility] Basophils Absolute 0.07 0.00 - 0.20 K/mcL LAB HEMETOLOGY METHOD 05/23/2025 1:13 PM [facility] Immature Granulocytes Absolute 0.03 0.00 - 0.03 K/mcL LAB HEMETOLOGY METHOD 05/23/2025 1:13 PM [facility] Blood Venous blood specimen / Unknown Venipuncture / Unknown 05/23/2025 12:22 PM EDT 05/23/2025 12:30 PM EDT Carmen MERRILL LAB BLOOD ORDERABLES Final R esult Performing Organization Address [facility]/ZIP Co de Phone Number [facility] [address] [place] [address], [place] [phone] * (ABNORMAL) B-type natriuretic peptide (05/23/2025 12:22 PM EDT) [facility] BNP 1,227(H) <=100 pcg/mL LAB CHEMISTRY METHOD 05/23/2025 2:13 PM EDT [facility] Blood Venous blood specimen / Unknown Venipuncture / Unknown 05/23/2025 12:22 PM EDT 05/23/2025 12:30 PM EDT Carmen MERRILL LAB BLOOD ORDERABLES Final R esult Performing Organization Address [facility] Co de Phone Number [facility] [address] [place] [address], [place] [phone] * (ABNORMAL) Basic metabolic panel (05/23/2025 12:22 PM EDT) Only the most recent of2 resultswithin the time period is included. [facility] Sodium 135 133 - 145 mmol/L LAB CHEMISTRY METHOD 05/23/2025 1:59 PM EDT [facility] Potassium 4.3 3.5 - 5.5 mmol/L LAB CHEMISTRY METHOD 05/23/2025 1:59 PM EDT [facility] Chloride 107 96 - 110 mmol/L LAB CHEMISTRY METHOD 05/23/2025 1:59 PM EDT [facility] CO2 21 21 - 32 mmol/L LAB CHEMISTRY METHOD 05/23/2025 1:59 PM EDT [facility] Anion Gap 7 3 - 11 LAB CHEMISTRY METHOD 05/23/2025 1:59 PM EDT [facility] Glucose 225(H) 70 - 100 mg/dL LAB CHEMISTRY METHOD 05/23/2025 1:59 PM EDT [facility] BUN 23 5 - 25 mg/dL LAB CHEMISTRY METHOD 05/23/2025 1:59 PM EDT [facility] Creatinine 1.35(H) 0.50 - 1.10 mg/dL LAB CHEMISTRY METHOD 05/23/2025 1:59 PM EDT [facility] eGFR 45(L) >=60 mL/min/1. 73m2 LAB CHEMISTRY METHOD 05/23/2025 1:59 PM EDT [facility] Comment:Calculation based on the Chronic Kidney Disease Epidemiology Collaboration (CKD-EPI) equation refit without adjustment for race. BUN/Creatinine Ratio 17.0 LAB CHEMISTRY METHOD 05/23/2025 1:59 PM EDT [facility] Calcium 8.4(L) 8.5 - 10.5 mg/dL LAB CHEMISTRY METHOD 05/23/2025 1:59 PM EDT [facility] Blood Venous blood specimen / Unknown Venipuncture / Unknown 05/23/2025 12:22 PM EDT 05/23/2025 12:30 PM EDT us Carmen MERRILL LAB BLOOD ORDERABLES Final R esult [facility] [address] [place] [address], * Activated Partial Thromboplastin Time - STAT (05/23/2025 9:49 AM EDT) aPTT 29.8 24.1 - 39.3 sec LAB COAGULATION METHOD 05/23/2025 10:07 AM EDT [facility] Blood Venous blood specimen / Unknown Venipuncture / Unknown 05/23/2025 9:49 AM EDT 05/23/2025 9:55 AM EDT Gracie Brownleeese LAB BLOOD ORDERABLES Stephie l Result [facility] [address] [place] [address], [place] [phone] * Prothrombin Time with INR - STAT (05/23/2025 9:49 AM EDT) Only the most recent of2 resultswithin the time period is included. [facility] Protime 12.1 10.6 - 13.9 sec LAB COAGULATION METHOD 05/23/2025 10:07 AM EDT [facility] INR 1.0 LAB COAGULATION METHOD 05/23/2025 10:07 AM EDT [facility] Blood Venous blood specimen / Unknown Venipuncture / Unknown 05/23/2025 9:49 AM EDT 05/23/2025 9:55 AM EDT [facility] LAB BLOOD ORDERABLES Stephie l Result Performing Organization Address City/[facility]/ZIP Co de Phone Number [facility] [address] [place] [address], [place] [phone] * Lavender tube (05/22/2025 4:22 PM EDT) [facility] Extra Tube Hold for add-ons. 05/22/2025 6:01 PM EDT [facility] Comment:Auto resulted. Blood Venous blood specimen / Unknown 05/22/2025 4:22 PM EDT 05/22/2025 4:48 PM EDT Graciejalyn Brownleeese LAB BLOOD ORDERABLES Stephie l Result [facility] [address] [place] [address], [place] [phone] * Type and screen (05/22/2025 4:22 PM EDT) [facility] ABO Group A 05/22/2025 5:32 PM EDT [facility] Rh Type Positive 05/22/2025 5:32 PM EDT [facility] Antibody Screen Negative 05/22/2025 5:32 PM EDT [facility] Blood Venous blood specimen / Unknown Venipuncture / Unknown 05/22/2025 4:22 PM EDT 05/22/2025 4:47 PM EDT Marlene MERRILL LAB BLOOD BANK TEST ORDERABLE S Final Result Performing Organization Address [facility]/ZIP Co de Phone Number [facility] [address] [place] [address], [place] [phone] * Magnesium (05/22/2025 5:57 AM EDT) Only the most recent of2 resultswithin the time period is included. [facility] Magnesium 2.0 1.9 - 2.6 mg/dL LAB CHEMISTRY METHOD 05/22/2025 7:43 AM EDT [facility] Comment:Results verified by repeat testing Blood Venous blood specimen / Unknown Venipuncture / Unknown 05/22/2025 5:57 AM EDT 05/22/2025 6:23 AM EDT Karen Lance NP LAB BLOOD ORDERABLES Final Result [facility] [address] [place] [address], [place] [phone] * (ABNORMAL) Urinalysis with reflex microscopic and culture (05/21/2025 12:09 PM EDT) [facility] Specific [place] Urine 1.022 1.003 - 1.030 LAB URINALYSIS - AUTOMATED METHOD 05/21/2025 1:16 PM EDT [facility] pH, Urine 8.5(A) 5.0 - 8.0 pH LAB URINALYSIS - AUTOMATED METHOD 05/21/2025 1:16 PM [facility] Leukocytes, Urine Trace(A) Negative LAB URINALYSIS - AUTOMATED METHOD 05/21/2025 1:16 PM [facility] Nitrite, Urine Negative Negative LAB URINALYSIS - AUTOMATED METHOD 05/21/2025 1:16 PM [facility] Protein, Urine 30(A) <=Trace mg/dL LAB URINALYSIS - AUTOMATED METHOD 05/21/2025 1:16 PM [facility] Glucose, Urine Negative Negative mg/dL LAB URINALYSIS - AUTOMATED METHOD 05/21/2025 1:16 PM [facility] Ketones, Urine Negative Negative mg/dL LAB URINALYSIS - AUTOMATED METHOD 05/21/2025 1:16 PM [facility] Urobilinogen, Urine 0.2 0.2 - 1.0 mg/dL LAB URINALYSIS - AUTOMATED METHOD 05/21/2025 1:16 PM [facility] Bilirubin, Urine Negative Negative LAB URINALYSIS - AUTOMATED METHOD 05/21/2025 1:16 PM [facility] Blood, Urine Negative Negative LAB URINALYSIS - AUTOMATED METHOD 05/21/2025 1:16 PM [facility] RBC, Urine 1.1 0 - 4 /HPF LAB URINALYSIS - AUTOMATED METHOD 05/21/2025 1:16 PM [facility] WBC, Urine 4.3(H) 0 - 4 /HPF LAB URINALYSIS - AUTOMATED METHOD 05/21/2025 1:16 PM [facility] Squamous Epithelial, Urine 88(H) 0 - 60 /LPF LAB URINALYSIS - AUTOMATED METHOD 05/21/2025 1:16 PM [facility] Bacteria, Urine Many(A) Negative /HPF LAB URINALYSIS - AUTOMATED METHOD 05/21/2025 1:16 PM EDT [facility] Hyaline Casts, Urine 0.4 0 - 3 /LPF LAB URINALYSIS - AUTOMATED METHOD 05/21/2025 1:16 PM EDT [facility] Urine Urine specimen obtained by clean catch procedure / Unknown Non-blood Collection / Unknown 05/21/2025 12:09 PM EDT 05/21/2025 12:33 PM EDT Gr[employer]ie [employer] [facility] LAB URINE ORDERABLES Stephie l Result Performing Organization Address City/[facility]/ZIP Co de Phone Number [facility] [address] [place] [address], [place] [phone] * Adams urine culture tube (05/21/2025 12:09 PM EDT) Pathologist [facility] Extra Tube Hold for add-ons. 05/21/2025 2:01 PM EDT [facility] Comment:Auto resulted. Urine Urine specimen obtained by clean catch procedure / Unknown Non-blood Collection / Unknown 05/21/2025 12:09 PM EDT 05/21/2025 12:33 PM EDT [facility] URINE ORDERABLES Stephie l Result Performing Organization Address City/[facility]/ZIP Co de Phone Number [facility] [address] [place] [address], [place] [phone] * (ABNORMAL) Culture urine (05/21/2025 12:09 PM EDT) Pathologist [facility] Culture, Urine >=100,000 CFU/mL Escherichia coli(A) AMBROSIO 05/24/2025 8:02 AM EDT [facility] Comment: This is an edited result. Previous organism was Gram negative bacilli on 05/22/2025 at 0948 EDT. Culture, Urine 50,000-100,000 CFU/mL Klebsiella pneumoniae ssp pneumoniae(A) AMBROSIO 05/24/2025 8:02 AM EDT [facility] Comment: The organism value [...] MICROBIOLOGY - GENERA L ORDERABLES Final Result [facility] [address] [place] [address], [place] [phone] * (ABNORMAL) Comprehensive metabolic panel (05/21/2025 11:02 AM EDT) Only the most recent of2 resultswithin the time period is included. Sodium 132(L) 133 - 145 mmol/L LAB CHEMISTRY METHOD 05/21/2025 11:47 AM [facility] Potassium 4.6 3.5 - 5.5 mmol/L LAB CHEMISTRY METHOD 05/21/2025 11:47 AM [facility] Chloride 103 96 - 110 mmol/L LAB CHEMISTRY METHOD 05/21/2025 11:47 AM [facility] CO2 21 21 - 32 mmol/L LAB CHEMISTRY METHOD 05/21/2025 11:47 AM [facility] Anion Gap 8 3 - 11 LAB CHEMISTRY METHOD 05/21/2025 11:47 AM [facility] Glucose 155(H) 70 - 100 mg/dL LAB CHEMISTRY METHOD 05/21/2025 11:47 AM [facility] BUN 28(H) 5 - 25 mg/dL LAB CHEMISTRY METHOD 05/21/2025 11:47 AM [facility] Creatinine 1.63(H) 0.50 - 1.10 mg/dL LAB CHEMISTRY METHOD 05/21/2025 11:47 AM [facility] eGFR 36(L) >=60 mL/min/1. 73m2 LAB CHEMISTRY METHOD 05/21/2025 11:47 AM [facility] Comment:Calculation based on the Chronic Kidney Disease Epidemiology Collaboration (CKD-EPI) equation refit without adjustment for race. BUN/Creatinine Ratio 17.2 LAB CHEMISTRY METHOD 05/21/2025 11:47 AM [facility] Calcium 8.5 8.5 - 10.5 mg/dL LAB CHEMISTRY METHOD 05/21/2025 11:47 AM [facility] AST (SGOT) 19 10 - 42 unit/L LAB CHEMISTRY METHOD 05/21/2025 11:47 AM [facility] ALT (SGPT) 13 10 - 60 unit/L LAB CHEMISTRY METHOD 05/21/2025 11:47 AM [facility] Alkaline Phosphatase 216(H) 42 - 121 unit/L LAB CHEMISTRY METHOD 05/21/2025 11:47 AM [facility] Total Protein 6.6 6.0 - 8.0 g/dL LAB CHEMISTRY METHOD 05/21/2025 11:47 AM [facility] Albumin 2.7(L) 3.2 - 5.0 g/dL LAB CHEMISTRY METHOD 05/21/2025 11:47 AM [facility] Total Bilirubin 0.4 0.0 - 1.4 mg/dL LAB CHEMISTRY METHOD 05/21/2025 11:47 AM [facility] Blood Venous blood specimen / Unknown Venipuncture / Unknown 05/21/2025 11:02 AM EDT 05/21/2025 11:08 AM EDT us Gracie Merritt DO LAB BLOOD ORDERABLES Stephie l Result [facility] [address] [place] [address], * (ABNORMAL) Hemoglobin A1c (09/22/2021) Pathologist [facility] Hemoglobin A1C 7.2(A) <=6.5 % Blood Venous blood specimen / Unknown Historical Provider MD LAB BLOOD ORDERABLES Stephie l Result * Urine Albumin Creatinine Ratio (08/05/2021) Pathologist Pending sale to [facility] Urine Albumin Creatinine Ratio Abstracted [facility] Provider MD HEALTH MAINTENANCE Final Result * Lipid panel (08/05/2021) [facility] LDL/HDL Ratio 2 0 - 4 Triglycerides 115 0 - 150 mg/dL Cholesterol 154 0 - 200 mg/dL HDL 67 >=40 mg/dL LDL Cholesterol 64 0 - 100 mg/dL Blood Venous blood specimen / Unknown [facility] Provider MD LAB BLOOD ORDERABLES Stephie l Result * Colonoscopy (07/02/2021) Pathologist Pending sale to [facility] Colonoscopy No interpreta tion,abstr acted Anatomical Region Laterality Modality Other [facility] Provider HEALTH MAINTENANCE Final Result * SCREENING MAMMOGRAPHY BI 2-VIEW [...] risk category Moderate (15% - 20%) Result [facility] Edith Wong MD IMG XR PROCEDURES Final Resu lt * Cervical Cancer Screening: HPV (01/17/2019) [facility] Cervical Cancer Screening: HPV Negative Abstracted Result [facility] Provider HEALTH MAINTENANCE Final Result * Hepatitis C Screening (09/09/2018) [facility] Hepatitis C Screening Abstracted Result [facility] Provider HEALTH MAINTENANCE Final Result * HIV Screening (03/22/2006) [facility] HIV Screening Abstracted Result [facility] Historical Provider HEALTH MAINTENANCE Final Result from Last 3 Months or Most Recently Relevant to Health Maintenance Insurance [facility] MEDICARE Member Subscriber Plan / Payer (Ef fective 2022-Present) Name:SHAMA REYES Relation to Subscriber:Self Name:Shama Reyes Payer ID:[id number] Group ID:[id number] Type:Not on file Address: [facility] [address] [place] [address] Advance Directives Documents on File Type Date Recorded 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 Care Teams Insights Manager Relationship Specialty Start Date End Date Anel Barrera MD [address] [place] [address] PCP - General Internal Medicine 05/18/25
--- OUTSIDE RECORDS SUMMARY | 2025-06-30 08:25 | XMS_ITS | Clinical Summary ---
Author Organization [facility] 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 Posttraumatic stress disorder 10/29/2023 History [...] 03/20/2025 Asthenia 10/29/2023 03/20/2025 Difficulty walking 10/29/2023 Muscle weakness 10/29/2023 03/20/2025 Pain at rest of right lower limb due to atherosclerosis 10/29/2023 03/20/2025 Postoperative care 10/29/2023 5 Cigarette smoker 08/08/2023 08/08/2023 03/20/2025 Diabetic on insulin 08/08/2023 08/08/2023 03/20/20 25 Atherosclerosis of kashia ar teries of the extremities 03/14/2023 08/08/2023 [...] 07/28/2022 Overview (07/28/2022): Tammy Singer note 02-19-2014 Immunizations Immunization Administration Dates Next Due Hepatitis [...] patient's age to complete this topic Insurance * Guarantor: Shama Reyes Account Type Relation to Patient Date of Phone Billing Address Personal/Family Self 1965 [address] ([id number]) [place] [address] [place] [address] ([id number]) ([id number]) [place] [address] Care Teams Water Attendant Relationship Specialty Start Date End Date Jason Barrera MD [facility] [place] [address] PCP - General Internal Medicine 05/11/22
--- OUTSIDE RECORDS SUMMARY | 2025-06-30 08:25 | XMS_ITS | Clinical Summary ---
Author Organization [facility] Address [address] [place] [address] Care Team Providers Care Digital Project Manager Name Role Phone Bridgette Richmond DMD Primary Care Provider [phone] Source Comments PLEASE NOTE, if this patient [...] Plan of Treatment Not on file Insurance [facility] DENTAL CT MEDICAID DENTAL [facility] D[facility] Care Teams Digital Project Manager Relationship Specialty Start Date End Date Bridgette Richmond DMD [address] [place] [address] PCP - General 12/20/20
[2025-06-30 11:10] LABS: MANUAL DIFF FLAG NO
[2025-06-30 11:13] LABS: Hematocrit 28.7 % (37.0-47.0); Hemoglobin 8.9 g/dl (12.0-16.0); Imm Gran Abs Auto 0.03 X10*3/uL (0.00-0.03); Imm Gran Pct Auto 0.4 % (0.0-0.4); Lymphocytes Absolute Auto 2.2 X10*3/uL (1.2-4.9); Mean Corpuscular HGB Conc 31.0 g/dl (31.0-35.0); Mean Corpuscular Hemoglobin 27.9 pg (27.0-33.0); Mean Corpuscular Volume 90.0 fL (80.0-98.0); NRBC Abs Auto 0.000 X10*3/uL (0.0-0.012); NRBC Pct Auto 0.0 /100WBC (0.0-0.2); Platelet Count 458 X10*3/uL (160-400); Red Blood Count 3.19 X10*6/uL (4.20-5.50); White Blood Count 7.2 X10*3/uL (4.8-10.8)
[2025-06-30 11:55] LABS: Alanine Aminotransferase 16 U/L (0-31); Anion Gap 13 (12-20); Aspartate Amino Transferase 28 U/L (5-31); Blood Urea Nitrogen 40 mg/dL (9-16); Calcium 9.2 mg/dL (8.4-10.2); Carbon Dioxide 24 mmol/L (22-29); Chloride 105 mmol/L (96-108); Cholesterol 125 mg/dL (<200); Estimated Glomerular Filt Rate 27; HDL Cholesterol 59 mg/dL (>40); Iron 48 mcg/dL (30-160); Percent Iron Saturation 16 % (15-50); Potassium 4.3 mmol/L (3.3-5.1); Sodium 138 mmol/L (135-145); Total Iron Binding Capacity 301 mcg/dL (228-428); Triglycerides 118 mg/dL (<150); Unsaturated Iron Binding 253 ug/dL
[2025-06-30 12:36] LABS: Folate > 20.0 ng/mL (> or = 4.0); Vitamin B12 413 pg/mL (200-900)
== END 2025-06-30 08:20 | disposition home or self-care (01) ==
LOC: HO.HMGCLDS 08:19
PROVIDERS: PCP Internal Medicine; Visit Provider Internal Medicine
DX: I25.10 Atherosclerotic heart disease of native coronary artery without angina pectoris (principal); I63.9 Cerebral infarction, unspecified; F41.8 Other specified anxiety disorders; I10 Essential (primary) hypertension; I73.9 Peripheral vascular disease, unspecified; E78.2 Mixed hyperlipidemia; E11.21 Type 2 diabetes mellitus with diabetic nephropathy; D50.9 Iron deficiency anemia, unspecified
CPT/HCPCS: 36415; 80048; 80061; 82306; 82607; 82746; 83540; 84450; 84460; 85025

== ENCOUNTER 2025-07-11 10:03 | Outpatient (AMB) | payer OTHER, SELFPAY ==
--- OUTSIDE RECORDS SUMMARY | 2024-04-10 09:00 | XMS_ITS ---
Author Organization [facility] Address 81 [facility] [place] [address] Care Team Providers Care Septic Cleaner Name Role Phone Bruce ANDREW, Anel Irene Primary Care Provider Un available Sheela Day Unavailable [phone] Jun Goss Unavailable Unavailable REASON FOR VISIT DR HOLLIS Encounters Encounter Location Date Provider Diagnosis [address] [address] 04/10/2024 Sheela Day Plan Of Treatment No Information Progress Notes * Shama ANAND ADOB:1965 (60 yo F)Acc No.[id number]:04/10/2024 Progress Note Patient: Shama ARTEAGA Provider: Shukri Day DPM :1965 A ge:58 Y S ex:Female Date:04/10/2024 Address:[address] [place], [place] [phone] Pcp:Suman Alas Subjective: * Chief Complaints: * [...] 04/10/2024 Generated for Printi ng/Faxing/eTransmitting on: 1 11:14 AM EDT
--- OUTSIDE RECORDS SUMMARY | 2024-04-17 06:00 | XMS_ITS ---
Author Organization [facility] [place] Address 81 [facility] [place] [address] Care Team Providers Care Cable Former Name Role Phone Bruce ANDREW, Anel Irene Primary Care Provider Un available Sheela Day Unavailable [phone] Jun Goss Unavailable Unavailable Encounters Encounter Location Date Provider Diagnosis [address] [address] 04/17/2024 Sheela Day Plan Of Treatment No Information Progress Notes * Shama ANAND ADOB:1965 (60 yo F)Acc No.[id number]:04/17/2024 Progress Note Patient: Shama ARTEAGA Provider: Shukri Day DPM :1965 A ge:58 Y S ex:Female Date:04/17/2024 Address:[address] [place], [place] [phone] Pcp:Suman Alas Subjective: * Chief Complaints: * * Medical History: Objective: * Vitals: Assessment: Plan: * Treatment: * Images: * The named appointment provid er may or may not be the originator of this progress note, and it is not deemed complete until electronically signed by the appointment provider. Sign off status: Pending * Provider: Shukri Day DPM Date: 0 04/17/2024 Generated for Myles williamson/Ricardo/eTransmitting on: 11:16 AM EDT
--- OUTSIDE RECORDS SUMMARY | 2024-08-07 10:30 | XMS_ITS ---
Author Organization [facility] Address [address] [facility] [place] [address] Care Team Providers Care Hand Hose Cutter Name Role Phone Bruce ANDREW, Anel Irene Primary Care Provider Un available Sheela Day Unavailable [phone] Jun Goss Unavailable Unavailable Encounters Encounter Location Date Provider Diagnosis [address] [address] 08/07/2024 Sheela Day Plan Of Treatment No Information Progress Notes * Shama ANAND ADOB:1965 (60 yo F)Acc No.[id number]:08/07/2024 Progress Note Patient: Shama ARTEAGA Provider: Shukri Day DPM :1965 A ge:59 Y S ex:Female Date:08/07/2024 Address:[address] [place], [place] [id number] Pcp:Suman Alas Subjective: * Chief Complaints: * [...] DPM Date: Generated for Madinai teri/Ricardo/eTransmitting on: 11:15 AM EDT
--- OUTSIDE RECORDS SUMMARY | 2024-09-04 09:00 | XMS_ITS ---
Author Organization [facility] Address [address] [facility] [place] [address] Care Team Providers Care Mohs Surgeon Name Role Phone Bruce ANDREW, Anel Irene Primary Care Provider Un available Sheela Day Unavailable [phone] Jun Goss Unavailable Unavailable Encounters Encounter Location Date Provider Diagnosis [address] [address] 09/04/2024 Sheela Day Plan Of Treatment No Information Progress Notes * Shama ANAND ADOB:1965 (60 yo F)Acc No.[id number]:09/04/2024 Progress Note Patient: Shama ARTEAGA Provider: Shukri Day DPM :1965 A ge:59 Y S ex:Female Date:09/04/2024 Address:[address] [place], [place] [phone] Pcp:Suman Alas Subjective: * Chief Complaints: * [...] Date: 11/04/2023 Generated for Myles williamson/Ricardo/eTransmitting on: 11:15 AM EDT
[2025-07-11 10:08] VITALS: BP 108/62; PULSE 58; O2SAT 98; BMI 27.1
--- NOTE | 2025-07-11 10:08 | A.OFFVIS_ITS ---
Vital Signs 3 07/11/25 10:08 Height 5 ft 2 in Weight 148 lb 2.41 oz BMI 27.1 BP 108/62 Blood Pressure Location Lt brachial Position Sitting Pulse 58 Pulse Source Pulse Oximeter Pulse Oximetry (%) 98 Oxygen Delivery Method Room Air Intake Visit Reasons: DM Intake Note: Patient presents today for a follow-up on Type 2 Diabetes Mellitus: Last seen by [place] Torres. Last Diabetic eye exam was on: DUE Last Podiatry exam was on: Patient does not see a Technology Specialist Most recent HbA1c: 8.0%, 05/05/2025 done at [facility] [place] Random Glucose-? ?mg/dL, Today 143 Allergies No Known Allergies Allergy (Verified 07/11/25 10:12) HPI Comments Details: Shama Lugo is a 60-year-old female with past medical history of Karyn's disease, hypertension, hyperlipidemia, diabetes, smoking, peripheral artery disease status post right AKA, COPD who was recently seen in consultation to evaluate her cardiac status. Diagnosed in 1986 as gestational diabetes, which persisted . She has been insulin-dependent for approximately 40 years and is currently using Lantus and Humalog, with a sliding scale for mealtime insulin. She also takes glipizide, which was recently added during her hospitalization, and has a history of metformin and SGLT2 inhibitor (Farxiga) use, both discontinued. She admits to inconsistent meal patterns, often grazing throughout the day and sometimes forgetting to eat, leading to hypoglycemia. Appetite is poor, and she receives prepackaged meals for nutritional support. The patient saw her eye doctor in December. No evidence of diabetic retinopathy or glaucoma was found. She has a history of cataracts, treated with laser, and her prescription has remained stable. She has a follow-up eye appointment scheduled next week due to her recent stroke. The patient has seen a foot doctor. No evidence of diabetic foot disease or neuropathy was found. The recent lower extremity amputation was vascular in origin (plaque and clot), not due to diabetes-related foot complications. Interval history: Since the last visit, the patient experienced a myocardial infarction requiring stent placement, complicated by stent thrombosis, stroke, and subsequent blood clot, necessitating multiple surgeries and an extended hospital stay (eight weeks at [facility]). The patient is currently undergoing extensive follow-up with cardiology, vascular surgery, neurology (stroke), and other specialties. ROS: General: No new complaints outside of those above. Cardiovascular: Recent NC, stent, stroke, ongoing follow-up. Respiratory: Exertional dyspnea. GI: Poor appetite, history of bariatric surgery (2008). Endocrine: Frequent hypoglycemia, postprandial hyperglycemia. Musculoskeletal: Recent lower extremity amputation, uses prosthesis and walker, in PT. Ophthalmologic: No diabetic retinopathy, history of cataracts (treated with laser), last eye exam December (no new findings). Neurologic: Recent stroke, ongoing follow-up. Physical exam: General: Frail appearing. NAD. Neck/Thyroid: Thyroid not enlarged CV: RRR, no murmur. No edema. Resp:Lungs clear to auscultation bilaterally. Decreased breath sounds on the bases Abdomen: Soft, nontender. nondistended Extremities/Neuro: Status post right BKA. No weakness or tremor of outstretched hands Diabetic Foot Exam: Performed by Podiatry Laboratory Tests 12/18/24 06/30/25 07/11/25 09:45 08:46 10:22 Glucose (Clinic) 143 H Hgb A1c (Clinic) 7.9 H Triglycerides 118 Cholesterol 125 LDL Cholesterol, Calc 43 HDL Cholesterol 59 25-OH Vitamin D Total 40.5 CGM data: Interpretation: Diurnal hyperglycemia in the setting of frequent snacking and likely insufficient insulin dose. We will adjust insulin dosing using a sliding scale, we will stop glipizide due to risk of hypoglycemia. [facility] Medical History (Updated 07/01/25 @ 22:23 by Anel Barrera MD) History of CVA (cerebrovascular accident) Iron deficiency anemia History of opioid abuse Depression with anxiety Peripheral vascular disease Essential hypertension Cigarette smoker motivated to quit Uncontrolled type 2 diabetes mellitus with hyperglycemia Diabetes mellitus with nephropathy Annual visit for general adult medical examination with abnormal findings section wound complications Encounter to establish care Type II diabetes mellitus Diabetes COPD (chronic obstructive pulmonary disease) Surgical History (Updated 07/10/25 @ 12:16 by DEMETRIA Linder) Hx of cardiac cath History of above-knee amputation of right lower extremity H/O neck surgery History of mandibular surgery H/O foot surgery H/O hernia repair H/O section H/O angioplasty History of hysterectomy History of colonoscopy History of laparoscopic adjustable gastric banding S/P bilateral breast reduction S/P carpal tunnel release Status post cataract extraction Family History Sister Breast cancer Mother Breast cancer Substance use disorder Mental health disorder Brother Substance use disorder Brother Substance use disorder Sister No problems noted. 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 Cognitive needs: Yes Hearing needs: No Vision needs: Yes (Glaucoma and cataracts being treated) Physical Exam Vital Signs: Last Vital Signs Pulse 58 07/11/25 10:08 BP 108/62 07/11/25 10:08 Pulse Ox 98 07/11/25 10:08 Oxygen Delivery Method Room Air 07/11/25 10:08 BMI result Body Mass Index 27.1 Office Procedures Glucose Monitoring Details Details: See [facility] [address] - Glucose Monitoring, continuous Procedure code (CPT) selection complete Results Reviewed Results Reviewed: Laboratory Last Values Glucose (Clinic) 143 mg/dL (60-115) H 07/11/25 10:22 Assessment & Plan Assessment & Plan (1) Diabetes mellitus due to underlying condition, uncontrolled, with hyperglycemia, with long-term current use of insulin: Code(s): E08.65 - Diabetes mellitus due to underlying condition with hyperglycemia; 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 * Complex regimen with basal/bolus insulin and sulfonylurea. * Poor appetite, erratic meal schedule, history of bariatric surgery. * Interested in insulin pump therapy. * Recent NC with stent placement, complicated by stent thrombosis and stroke * Ongoing follow-up with multiple specialties. * Right lower extremity amputation (vascular etiology) * Using prosthesis, in PT. * History of bariatric surgery (2008) Plan Adjust Lantus dose to 16 units daily. Update sliding scale for Humalog to be more conservative, with a maximum of 8 units for very high readings, but generally aiming for 3?5 units per meal/snack, tailored to blood glucose and meal size. Discontinue glipizide, as combination with insulin increases hypoglycemia risk. Emphasize pre-meal insulin administration; discuss strategies to improve adherence (alarms, reminders). Refer to visual educator for comprehensive insulin pump education and selection (Tandem, Medtronic, Omnipod discussed; Islet pump not suitable due to grazing eating pattern). Continue CGM monitoring; review for possible sensor compression artifacts. Maintain A1c goal of 7?8% given comorbidities and hypoglycemia risk. Orders: Orders 2 AMB Glucose Monitoring Today E08.65 - Diabetes mellitus due to underlying condition with hyperglycemia, Z79.4 - senior care (current) use of insulin Referrals 2 Diabetes Education Referral E08.65 - Diabetes mellitus due to underlying condition with hyperglycemia, Z79.4 - senior care (current) use of insulin Patient 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: Take Lantus 16 units AM Insulin Dose (units) ? Take 10?15 minutes prior to the meal Blood Sugar Level (mg/dl) Small Meal?(low carb <30g like salad, eggs with meat) Normal Meal?(30?60g like sandwich, chips, meat, small starch portion) Large Meal?(>60g like pizza, lasagna, Frisian food, meal + dessert) <100 0 0 1 101?150 0 2 3 151?200 2 3 4 201?250 3 4 5 251?300 4 5 5 301?350 5 6 7 351?400 6 7 8 >400 7 8 9 Coding Level of Care Code Est Pt Level 5 (15702) Diagnoses Diabetes mellitus due to underlying condition, uncontrolled, with hyperglycemia, with long-term current use of insulin E08.65; Z79.4 CPT Codes Details - CPT: 67829 - Glucose Monitoring, continuous (0820220084) Time Spent (min) 60 Comment Time spent on review of previous records, history, exam/plan and patient education.
[2025-07-11 10:26] LABS: Glucose, Whole Blood 143 mg/dL (60-115)
--- OUTSIDE RECORDS SUMMARY | 2025-07-11 11:15 | XMS_ITS | Patient Health Record ---
Author Organization [facility] Address [address] [place] [address] Care Team Providers Care Ham Curer Name Role Phone Bruce ANDREW, Anel Irene Primary Care Provider Un available Sheela Day Unavailable [phone] Jun Goss Unavailable Unavailable Allergies No Known [...] Polyneuropathy due to type 2 diabetes mellitus (333553107) Type 2 diabetes mellitus with diabetic polyneuropathy (E11.42) Active confirmed Problem Polyneuropathy due to diabetes mellitus type I (221165557) Type 1 diabetes mellitus with diabetic polyneuropathy (E10.42) Active confirmed Problem Bilateral atherosclerosis of arteries of lower limbs (disorder) (56834488312088202 ) Atherosclerosis of artery of both lower extremities (I70.203) Active confirmed Problem Polyneuropathy due to diabetes mellitus type I (487892174) Type 1 DM with polyneuropathy (E10.42) Active confirmed Problem Critical limb ischemia of right lower extremity (I70.221) Active confirmed Encounters Encounter Location Date Provider Diagnosis [facility] [place] [address] [place] [address] 08/03/2024 [facility] [address] 09/04/2024 Sheela Day Plan Of Treatment No Information Insurance Providers Payer Name Payer Address Payer Phone Subscriber Number Group Number Insured Name Patient Relationship to Insured Coverage Start Date Coverage End Date [facility] [employer] Claims [address] [place] [id number] Shama Reyes Self - patient is the [...]
--- OUTSIDE RECORDS SUMMARY | 2025-07-11 11:15 | XMS_ITS | Clinical Summary ---
Author Organization [facility] Address [address] [place] [address] Care Team Providers Care Mft Name Role Phone Bridgette Richmond DMD Primary Care Provider [phone] Source Comments PLEASE NOTE, if this patient [...] Plan of Treatment Not on file Insurance [facility] MEDICAID DENTAL [facility] Care Teams Mft Relationship Specialty Start Date End Date Bridgette Richmond DMD [address] [place] [address] PCP - General 12/20/20
--- OUTSIDE RECORDS SUMMARY | 2025-07-11 11:15 | XMS_ITS | Clinical Summary ---
Author Organization [facility] Address [address] [facility] [address] [place] [address] Phone Care Team Providers Care Car Icer Name Role Phone Jason Barrera MD Primary Care Provider [phone] Allergies Active Allergy Reactions Criticality Noted Date [...] Gastro-esophageal reflux disease without esophag itis 10/30/2023 [place]'s chorea 10/29/2023 Post-traumatic stress disorder 10/29/2023 History of diabetic foot [...] insulin 08/08/2023 08/08/2023 03/20/20 25 Atherosclerosis of solomon ar teries of the extremities 03/14/2023 08/08/2023 [...] Phone Billing Address Personal/Family Self 1965 [address] ([id number]) [place] [address] ([id number]) [place] [address] ([id number]) [place] [address] Care Teams Car Icer Relationship Specialty Start Date End Date Jason Barrera MD [address] [place] [address] PCP - General Internal Medicine 05/11/22
--- OUTSIDE RECORDS SUMMARY | 2025-07-11 11:17 | XMS_ITS | Clinical Summary ---
Author Organization [facility] Address [address] [place] [address] Phone Care Team Providers Care Senior Underwriting Assistant Name Role Phone Anel Barrera MD Primary [...] Problem Noted Date Diagnosed Date Cerebrovascular accident ([facility] V24, [facility] V 28) 05/17/2025 Polysubstance abuse ([facility] V24, [facility] V28) 0 01/23/2021 Overview (09/29/2024): Using IV [...] Overdose of opiate or relate d narcotic ([facility] V24, [facility] V28) 04/06/2018 Overview (09/29/2024): 04/06/2018 Microalbuminuria 03/15/2018 Bipolar 1 disorder ([facility] V24, [facility] V28) Carpal tunnel syndrome 02/25/2018 Overview (09/29/2024): S/p release 2014 Hyperlipidemia associated wi th type 2 diabetes mellitus ([facility] V24, [facility] V28) 02/25/2018 Diabetic peripheral neuropathy ([facility] V24, [facility] V28) 02/25/2018 Diabetes mellitus type 2 wit h neurological manifestations ([facility] V24, [facility] V28) 11/07/2014 Nuclear sclerosis 10/30/2014 Overview (09/29/2024): Dr Kaur note 01-24-2008 Shoulder impingement syndrome 10/30/2014 Overview (09/29/2024): Tammy Singer note 02-19-2014 HTN (hypertension), benign 02/19/2009 Necrobiosis lipoidica diabet icorum ([facility] V24, [facility] V28) 02/01/2009 Posttraumatic stress disorder 07/16/2006 Type 2 diabetes mellitus ([facility] V24, [facility] V 28) 10/01/2005 Encounters Date Type Department Care Team Description 05/21/2025 Plan of Care Documentation [facility] [address] [place] [phone] 05/17/2025 3:56 PM EDT - 05/25/2025 12:35 PM EDT Hospital Encounter [facility] [address] [place] [phone] Gracie Merritt DO Cerebrovascular accident ([facility] V24, [facility] V28) [I63.9] (Primary Dx); Cerebrovascular accident (CVA), unspecified mechanism ([facility] V24, [facility] V28) Discharge Disposition: Home-Health Care Svc from Last 3 Months Immunizations Immunization Administration Dates Next Due Hepatitis A Adult [...] HERNIA REPAIR/ING OTHER SURGICAL HISTORY 04/2009 PROCEDURE: [place] LAPS GASTRIC RESTRICTIVE PROCEDURE PLACE DEVICE; [place] starting wt HAND SURGERY PROCEDURE: HISTORICAL HAND SURGERY; COMMENT: Bilateral carpal tunnel release HERNIA REPAIR PROCEDURE: HISTORICAL HERNIA REPAIR/ING SECTION PROCEDURE: HISTORICAL ; COMMENT: x 2 BREAST REDUCTION 1981 Bilateral PROCEDURE: [place] BREAST REDUCTION COLONOSCOPY 07/02/2021 PROCEDURE: HISTORICAL COLONOSCOPY; COMMENT: polyp Medical History Medical History Date Comments Bipolar 1 disorder ([facility] V24, [facility] V28) 02/25/2018 DX:Bipolar 1 disorder (HCC) Diabetes mellitus type 2 wit h neurological manifestations ([facility] V24, [facility] V28) 11/07/2014 DX:Diabetes mellitus type 2 with neurological manifestations (HCC) Diabetic peripheral neuropat hy ([facility] V24, [facility] V28) 02/25/2018 DX:Diabetic peripheral neur opathy (HCC) Type 2 diabetes mellitus wit h diabetic retinopathy ([facility] V24, [facility] V28) 10/01/2005 DX:Type 2 diabe noel mellitus with diabetic retinopathy (HCC) HTN (hypertension), benign 02/19/2009 DX:HT N (hypertension), benign Hyperlipidemia associated wi th type 2 diabetes mellitus ([facility] V24, [facility] V28) 02/25/2018 DX:Hyperlipidemia associated with type 2 diabetes mellitus (HCC) Necrobiosis lipoidica diabet icorum ([facility] V24, [facility] V28) 02/01/2009 DX:Necrobiosis lipoidica diabeticorum (HCC) Nuclear sclerosis 10/30/2014 DX:Nuclear scl erosis; COMMENT: Dr Kaur note 01-24-2009 Posttraumatic stress disorder 07/16/2006 DX :Posttraumatic stress disorder Shoulder impingement syndrome 10/30/2014 DX :Shoulder impingement syndrome; COMMENT: Tammy Singer note 02-19-2014 Tobacco abuse 03/14/2018 DX:Tobacco abuse Carpal tunnel syndrome 02/25/2018 DX:Carpal tunnel syndrome; COMMENT: S/p release 2014 Type 2 diabetes with nephrop athy ([facility] V24, [facility] V28) 03/15/2018 DX:Type 2 diabetes with nep hropathy (HCC) Microalbuminuria 03/15/2018 DX:Microalbumin uria Overdose of opiate or relate d narcotic ([facility] V24, [facility] V28) 04/06/2018 DX:Overdose of opiate or re lated narcotic ([facility]); COMMENT: 04/06/2018 Positive urine drug screen 09/05/2018 [...] Anemia of chronic disease 09/07/2018 Cerebrovascular accident ([facility] V24, [facility] V28) 05/17/2025 Family History Medical History Relation [...] Safety Answer Date Record ed Physical Abuse Unrecognized value 05/17/2025 Verbal Abuse Unrecognized value 05/17/2025 Comments Unknown Sex and Gender Information [...] 60-74 years 1-dose series) 2025 COVID-19 Vaccine ( season) 2025 09/29/2023, 08/20/2022, 04/25/2022, Additional history [...] 40 PM EDT HEMOGLOBIN A1C Routine 09/22/2021 URINE ALBUMIN CREATININE RATIO Routine 08/05/2021 LIPID PANEL Routine 08/05/2021 COLONOSCOPY Routine 07/02/2021 SCREENING MAMMOGRAPHY BI 2-VIEW BREAST INC CAD Routine 05/01/2021 4:43 PM EDT Encounter for immunization Type 2 diabetes mellitus with mild nonproliferative diabetic retinopathy without macular edema, bilateral (CMS/HCC V24, [facility] V28) terminal gauger (current) use of insulin ([facility] V24, [facility] V28) HPV Routine 01/17/2019 HEPATITIS C SCREENING [...] - 100 mg/dL 05/25/2025 11:14 AM EDT [facility] Blood Capillary blood specimen / Unknown 05/25/2025 11:13 AM EDT 05/25/2025 11:15 AM EDT Gracie Merritt DO LAB POINT OF CARE TEST DOCKED DEVICE UNSOLICITED RESULTS Final Result [facility] [address] [place] [address], [place] [phone] * SST tube (05/24/2025 5:51 AM EDT) Only the most recent of3 resultswithin the time period is included. [facility] Extra Tube Hold for add-ons. 05/24/2025 8:01 AM T [facility] Comment:Auto resulted. Blood Venous blood specimen / Unknown Venipuncture / Unknown 05/24/2025 5:51 AM EDT 05/24/2025 6:33 AM EDT us Gracie Merritt DO LAB BLOOD ORDERABLES Stephie l Result [facility] [address] [place] [address], * (ABNORMAL) CBC - Every 3 Days (05/24/2025 5:51 AM EDT) [facility] WBC 7.5 4.8 - 10.8 K/mcL LAB HEMETOLOGY METHOD 05/24/2025 7:12 AM [facility] RBC 3.10(L) 3.80 - 4.80 M/mcL LAB HEMETOLOGY METHOD 05/24/2025 7:12 AM [facility] Hemoglobin 9.1(L) 11.5 - 16.0 g/dL LAB HEMETOLOGY METHOD 05/24/2025 7:12 AM [facility] Hematocrit 28.7(L) 35.0 - 47.0 % LAB HEMETOLOGY METHOD 05/24/2025 7:12 AM [facility] MCV 92.0 79.0 - 98.0 FL LAB HEMETOLOGY METHOD 05/24/2025 7:12 AM [facility] MCH 29.2 27.0 - 32.0 pcg LAB HEMETOLOGY METHOD 05/24/2025 7:12 AM [facility] MCHC 31.7(L) 32.0 - 37.0 g/dL LAB HEMETOLOGY METHOD 05/24/2025 7:12 AM EDT [facility] RDW 15.5(H) 11.0 - 15.0 % LAB HEMETOLOGY METHOD 05/24/2025 7:12 AM EDT [facility] Platelets 301 130 - 400 K/mcL LAB HEMETOLOGY METHOD 05/24/2025 7:12 AM EDT [facility] MPV 12.0(H) 7.0 - 11.0 FL LAB HEMETOLOGY METHOD 05/24/2025 7:12 AM EDT [facility] NRBC 0.0 <1.0 % LAB HEMETOLOGY METHOD 05/24/2025 7:12 AM EDT [facility] NRBC Absolute 0.00 <0.10 K/mcL LAB HEMETOLOGY METHOD 05/24/2025 7:12 AM EDT [facility] Blood Venous blood specimen / Unknown Venipuncture / Unknown 05/24/2025 5:51 AM EDT 05/24/2025 6:32 AM EDT us Gracie Merritt DO LAB BLOOD ORDERABLES Stephie l Result [facility] [address] [place] [address], * Troponin I high sensitivity (05/23/2025 3:27 PM EDT) High Sensitivity Troponin I 52 <=54 ng/L LAB CHEMISTRY METHOD 05/23/2025 4:30 PM EDT [facility] Blood Venous blood specimen / Unknown Venipuncture / Unknown 05/23/2025 3:27 PM EDT 05/23/2025 3:43 PM EDT Narrative [facility] - 05/23/2025 4:30 PM EDT High levels of biotin in samples may falsely decrease hsTroponin values. Use caution when interpreting hsTroponin results in patients taking biotin who exhibit renal impairment (eGFR <60) or in patients taking more than 20 mg/day of biotin. Carmen MERRILL LAB BLOOD ORDERABLES Final R esult Performing Organization Address [facility]/ZIP Co de Phone Number [facility] [address] [place] [address], [place] [phone] * ECG 12 lead (05/23/2025 2:57 PM EDT) [facility] Ventricular Rate ECG 63 BPM GEMUSE Atrial Rate 63 BPM GEMUSE P-R Interval 136 ms GEMUSE QRS Duration 122 ms GEMUSE Q-T Interval 474 ms GEMUSE QTc 485 ms GEMUSE P Wave [place] 41 degrees GEMUSE R [place] 4 degrees GEMUSE T [place] 124 degrees GEMUSE ECG Interpretation Normal sinus rhythm Non-specific intra-ventricu lar conduction delay Nonspecific T wave abnormality Abnormal ECG No previous ECGs available Confirmed by ERIN PARIKH ([id number]) on 05/24/2025 7:33:18 PM GEMUSE 05/23/2025 2:57 PM EDT 05/24/2025 7:33 PM EDT Carmen MERRILL ECG ORDERABLES Final Result Performing Organization Address [facility] Co de Phone Number GEMUSE * XR [...] Signed Date: 05/23/2025 13:28 ET Workstation ID: [id number] Transcribed By: Self Edit Transcribed Date: 05/23/2025 [...] Signed Date: 05/23/2025 13:28 ET Workstation ID: [id number] Transcribed By: Self Edit Transcribed Date: 05/23/2025 13:22 ET us Carmen MERRILL IMG XR PROCEDURES Final Resu lt * (ABNORMAL) CBC auto differential (05/23/2025 12:22 PM EDT) Only the most recent of5 resultswithin the time period is included. WBC 8.0 4.8 - 10.8 /[facility] LAB HEMETOLOGY METHOD 05/23/2025 1:13 PM [facility] RBC 3.00(L) 3.80 - 4.80 M/mcL LAB HEMETOLOGY METHOD 05/23/2025 1:13 PM [facility] Hemoglobin 8.9(L) 11.5 - 16.0 g/dL LAB HEMETOLOGY METHOD 05/23/2025 1:13 PM [facility] Hematocrit 27.9(L) 35.0 - 47.0 % LAB HEMETOLOGY METHOD 05/23/2025 1:13 PM [facility] MCV 92.4 79.0 - 98.0 FL LAB HEMETOLOGY METHOD 05/23/2025 1:13 PM [facility] MCH 29.5 27.0 - 32.0 pcg LAB HEMETOLOGY METHOD 05/23/2025 1:13 PM [facility] MCHC 31.9(L) 32.0 - 37.0 g/dL LAB HEMETOLOGY METHOD 05/23/2025 1:13 PM [facility] RDW 15.6(H) 11.0 - 15.0 % LAB HEMETOLOGY METHOD 05/23/2025 1:13 PM [facility] Platelets 273 130 - 400 K/mcL LAB HEMETOLOGY METHOD 05/23/2025 1:13 PM [facility] MPV 11.9(H) 7.0 - 11.0 FL LAB HEMETOLOGY METHOD 05/23/2025 1:13 PM [facility] NRBC 0.0 <1.0 % LAB HEMETOLOGY METHOD 05/23/2025 1:13 PM [facility] NRBC Absolute 0.00 <0.10 K/mcL LAB HEMETOLOGY METHOD 05/23/2025 1:13 PM [facility] Neutrophils Relative 70.6 % LAB HEMETOLOGY METHOD 05/23/2025 1:13 PM [facility] Lymphocytes Relative 20.4 % LAB HEMETOLOGY METHOD 05/23/2025 1:13 PM [facility] Monocytes Relative 6.4 % LAB HEMETOLOGY METHOD 05/23/2025 1:13 PM [facility] Eosinophils Relative 1.3 % LAB HEMETOLOGY METHOD 05/23/2025 1:13 PM [facility] Basophils Relative 0.9 % LAB HEMETOLOGY METHOD 05/23/2025 1:13 PM [facility] Immature Granulocytes Relative 0.4 % LAB HEMETOLOGY METHOD 05/23/2025 1:13 PM [facility] Neutrophils Absolute 5.65 1.50 - 7.00 K/mcL LAB HEMETOLOGY METHOD 05/23/2025 1:13 PM [facility] Lymphocytes Absolute 1.63 1.00 - 5.00 K/mcL LAB HEMETOLOGY METHOD 05/23/2025 1:13 PM [facility] Monocytes Absolute 0.51 0.20 - 1.00 K/mcL LAB HEMETOLOGY METHOD 05/23/2025 1:13 PM [facility] Eosinophils Absolute 0.10 0.00 - 0.50 K/mcL LAB HEMETOLOGY METHOD 05/23/2025 1:13 PM [facility] Basophils Absolute 0.07 0.00 - 0.20 K/mcL LAB HEMETOLOGY METHOD 05/23/2025 1:13 PM [facility] Immature Granulocytes Absolute 0.03 0.00 - 0.03 K/mcL LAB HEMETOLOGY METHOD 05/23/2025 1:13 PM [facility] Blood Venous blood specimen / Unknown Venipuncture / Unknown 05/23/2025 12:22 PM EDT 05/23/2025 12:30 PM EDT Carmen MERRILL LAB BLOOD ORDERABLES Final R esult Performing Organization Address [facility]/ZIP Co de Phone Number [facility] [address] [place] [address], [place] [phone] * (ABNORMAL) B-type natriuretic peptide (05/23/2025 12:22 PM EDT) [facility] BNP 1,227(H) <=100 pcg/mL LAB CHEMISTRY METHOD 05/23/2025 2:13 PM EDT [facility] Blood Venous blood specimen / Unknown Venipuncture / Unknown 05/23/2025 12:22 PM EDT 05/23/2025 12:30 PM EDT Carmen MERRILL LAB BLOOD ORDERABLES Final R esult Performing Organization Address [facility] de Phone Number [facility] [address] [place] [address], [place] [phone] * (ABNORMAL) Basic metabolic panel (05/23/2025 12:22 PM EDT) Only the most recent of2 resultswithin the time period is included. [facility] Sodium 135 133 - 145 mmol/L LAB CHEMISTRY METHOD 05/23/2025 1:59 PM EDT [facility] Potassium 4.3 3.5 - 5.5 mmol/L LAB CHEMISTRY METHOD 05/23/2025 1:59 PM EDT [facility] Chloride 107 96 - 110 mmol/L LAB CHEMISTRY METHOD 05/23/2025 1:59 PM EDT [facility] CO2 21 21 - 32 mmol/L LAB CHEMISTRY METHOD 05/23/2025 1:59 PM EDT [facility] Anion Gap 7 3 - 11 LAB CHEMISTRY METHOD 05/23/2025 1:59 PM EDT [facility] Glucose 225(H) 70 - 100 mg/dL LAB CHEMISTRY METHOD 05/23/2025 1:59 PM EDT [facility] BUN 23 5 - 25 mg/dL LAB CHEMISTRY METHOD 05/23/2025 1:59 PM EDT [facility] Creatinine 1.35(H) 0.50 - 1.10 mg/dL LAB CHEMISTRY METHOD 05/23/2025 1:59 PM EDT [facility] eGFR 45(L) >=60 mL/min/1. 73m2 LAB CHEMISTRY METHOD 05/23/2025 1:59 PM EDT [facility] Comment:Calculation based on the Chronic Kidney Disease Epidemiology Collaboration (CKD-EPI) equation refit without adjustment for race. BUN/Creatinine Ratio 17.0 LAB CHEMISTRY METHOD 05/23/2025 1:59 PM EDT [facility] Calcium 8.4(L) 8.5 - 10.5 mg/dL LAB CHEMISTRY METHOD 05/23/2025 1:59 PM EDT [facility] Blood Venous blood specimen / Unknown Venipuncture / Unknown 05/23/2025 12:22 PM EDT 05/23/2025 12:30 PM EDT us Carmen MERRILL LAB BLOOD ORDERABLES Final R esult [facility] [address] [place] [address], * Activated Partial Thromboplastin Time - STAT (05/23/2025 9:49 AM EDT) aPTT 29.8 24.1 - 39.3 sec LAB COAGULATION METHOD 05/23/2025 10:07 AM EDT [facility] Blood Venous blood specimen / Unknown Venipuncture / Unknown 05/23/2025 9:49 AM EDT 05/23/2025 9:55 AM EDT Gracie Merritt DO LAB BLOOD ORDERABLES Stephie l Result [facility] [address] [place] [address], [place] [phone] * Prothrombin Time with INR - STAT (05/23/2025 9:49 AM EDT) Only the most recent of2 resultswithin the time period is included. [facility] Protime 12.1 10.6 - 13.9 sec LAB COAGULATION METHOD 05/23/2025 10:07 AM EDT [facility] INR 1.0 LAB COAGULATION METHOD 05/23/2025 10:07 AM EDT [facility] Blood Venous blood specimen / Unknown Venipuncture / Unknown 05/23/2025 9:49 AM EDT 05/23/2025 9:55 AM EDT [facility] BLO[facility] ORDERABLES Stephie l Result Performing Organization Address City/[facility]/ZIP Co de Phone Number [facility] [address] [place] [address], [place] [phone] * Lavender tube (05/22/2025 4:22 PM EDT) [facility] Extra Tube Hold for add-ons. 05/22/2025 6:01 PM EDT [facility] Comment:Auto resulted. Blood Venous blood specimen / Unknown 05/22/2025 4:22 PM EDT 05/22/2025 4:48 PM EDT Gracie Brownleeese DO LAB BLOOD ORDERABLES Stephie l Result [facility] [address] [place] [address], [place] [phone] * Type and screen (05/22/2025 4:22 PM EDT) [facility] ABO Group A 05/22/2025 5:32 PM EDT [facility] Rh Type Positive 05/22/2025 5:32 PM EDT [facility] Antibody Screen Negative 05/22/2025 5:32 PM EDT [facility] Blood Venous blood specimen / Unknown Venipuncture / Unknown 05/22/2025 4:22 PM EDT 05/22/2025 4:47 PM EDT Marlene MERRILL LAB BLOOD BANK TEST ORDERABLE S Final Result Performing Organization Address [facility]/ZIP Co de Phone Number [facility] [address] [place] [address], [place] [phone] * Magnesium (05/22/2025 5:57 AM EDT) Only the most recent of2 resultswithin the time period is included. [facility] Magnesium 2.0 1.9 - 2.6 mg/dL LAB CHEMISTRY METHOD 05/22/2025 7:43 AM EDT [facility] Comment:Results verified by repeat testing Blood Venous blood specimen / Unknown Venipuncture / Unknown 05/22/2025 5:57 AM EDT 05/22/2025 6:23 AM EDT Karen Lance NP LAB BLOOD ORDERABLES Final Result [facility] [address] [place] [address], [place] [phone] * (ABNORMAL) Urinalysis with reflex microscopic and culture (05/21/2025 12:09 PM EDT) [facility] Specific [place] Urine 1.022 1.003 - 1.030 LAB URINALYSIS - AUTOMATED METHOD 05/21/2025 1:16 PM EDT [facility] pH, Urine 8.5(A) 5.0 - 8.0 pH LAB URINALYSIS - AUTOMATED METHOD 05/21/2025 1:16 PM [facility] Leukocytes, Urine Trace(A) Negative LAB URINALYSIS - AUTOMATED METHOD 05/21/2025 1:16 PM [facility] Nitrite, Urine Negative Negative LAB URINALYSIS - AUTOMATED METHOD 05/21/2025 1:16 PM [facility] Protein, Urine 30(A) <=Trace mg/dL LAB URINALYSIS - AUTOMATED METHOD 05/21/2025 1:16 PM [facility] Glucose, Urine Negative Negative mg/dL LAB URINALYSIS - AUTOMATED METHOD 05/21/2025 1:16 PM [facility] Ketones, Urine Negative Negative mg/dL LAB URINALYSIS - AUTOMATED METHOD 05/21/2025 1:16 PM [facility] Urobilinogen, Urine 0.2 0.2 - 1.0 mg/dL LAB URINALYSIS - AUTOMATED METHOD 05/21/2025 1:16 PM [facility] Bilirubin, Urine Negative Negative LAB URINALYSIS - AUTOMATED METHOD 05/21/2025 1:16 PM [facility] Blood, Urine Negative Negative LAB URINALYSIS - AUTOMATED METHOD 05/21/2025 1:16 PM [facility] RBC, Urine 1.1 0 - 4 /HPF LAB URINALYSIS - AUTOMATED METHOD 05/21/2025 1:16 PM [facility] WBC, Urine 4.3(H) 0 - 4 /HPF LAB URINALYSIS - AUTOMATED METHOD 05/21/2025 1:16 PM [facility] Squamous Epithelial, Urine 88(H) 0 - 60 /LPF LAB URINALYSIS - AUTOMATED METHOD 05/21/2025 1:16 PM [facility] Bacteria, Urine Many(A) Negative /HPF LAB URINALYSIS - AUTOMATED METHOD 05/21/2025 1:16 PM EDT [facility] Hyaline Casts, Urine 0.4 0 - 3 /LPF LAB URINALYSIS - AUTOMATED METHOD 05/21/2025 1:16 PM EDT [facility] Urine Urine specimen obtained by clean catch procedure / Unknown Non-blood Collection / Unknown 05/21/2025 12:09 PM EDT 05/21/2025 12:33 PM EDT [facility] LAB URINE ORDERABLES Stephie l Result Performing Organization Address [facility]/ZIP Co de Phone Number [facility] [address] [place] [address], [place] [phone] * Adams urine culture tube (05/21/2025 12:09 PM EDT) Pathologist [facility] Extra Tube Hold for add-ons. 05/21/2025 2:01 PM EDT [facility] Comment:Auto resulted. Urine Urine specimen obtained by clean catch procedure / Unknown Non-blood Collection / Unknown 05/21/2025 12:09 PM EDT 05/21/2025 12:33 PM EDT [facility] LAB URINE ORDERABLES Stephie l Result Performing Organization Address City/[facility]/ZIP Co de Phone Number [facility] [address] [place] [address], [place] [phone] * (ABNORMAL) Culture urine (05/21/2025 12:09 PM EDT) Culture, Urine >=100,000 CFU/mL Escherichia coli(A) AMBROSIO 05/24/2025 8:02 AM EDT [facility] Comment: This is an edited result. Previous organism was Gram negative bacilli on 05/22/2025 at 0948 EDT. Culture, Urine 50,000-100,000 CFU/mL Klebsiella pneumoniae ssp pneumoniae(A) AMBROSIO 05/24/2025 8:02 AM EDT [facility] Comment: The organism value [...] MICROBIOLOGY - GENERA L ORDERABLES Final Result [facility] [address] [place] [address], [place] [phone] * (ABNORMAL) Comprehensive metabolic panel (05/21/2025 11:02 AM EDT) Only the most recent of2 resultswithin the time period is included. Sodium 132(L) 133 - 145 mmol/L LAB CHEMISTRY METHOD 05/21/2025 11:47 AM [facility] Potassium 4.6 3.5 - 5.5 mmol/L LAB CHEMISTRY METHOD 05/21/2025 11:47 AM [facility] Chloride 103 96 - 110 mmol/L LAB CHEMISTRY METHOD 05/21/2025 11:47 AM [facility] CO2 21 21 - 32 mmol/L LAB CHEMISTRY METHOD 05/21/2025 11:47 AM [facility] Anion Gap 8 3 - 11 LAB CHEMISTRY METHOD 05/21/2025 11:47 AM [facility] Glucose 155(H) 70 - 100 mg/dL LAB CHEMISTRY METHOD 05/21/2025 11:47 AM [facility] BUN 28(H) 5 - 25 mg/dL LAB CHEMISTRY METHOD 05/21/2025 11:47 AM [facility] Creatinine 1.63(H) 0.50 - 1.10 mg/dL LAB CHEMISTRY METHOD 05/21/2025 11:47 AM [facility] eGFR 36(L) >=60 mL/min/1. 73m2 LAB CHEMISTRY METHOD 05/21/2025 11:47 AM [facility] Comment:Calculation based on the Chronic Kidney Disease Epidemiology Collaboration (CKD-EPI) equation refit without adjustment for race. BUN/Creatinine Ratio 17.2 LAB CHEMISTRY METHOD 05/21/2025 11:47 AM [facility] Calcium 8.5 8.5 - 10.5 mg/dL LAB CHEMISTRY METHOD 05/21/2025 11:47 AM [facility] AST (SGOT) 19 10 - 42 unit/L LAB CHEMISTRY METHOD 05/21/2025 11:47 AM [facility] ALT (SGPT) 13 10 - 60 unit/L LAB CHEMISTRY METHOD 05/21/2025 11:47 AM [facility] Alkaline Phosphatase 216(H) 42 - 121 unit/L LAB CHEMISTRY METHOD 05/21/2025 11:47 AM [facility] Total Protein 6.6 6.0 - 8.0 g/dL LAB CHEMISTRY METHOD 05/21/2025 11:47 AM [facility] Albumin 2.7(L) 3.2 - 5.0 g/dL LAB CHEMISTRY METHOD 05/21/2025 11:47 AM [facility] Total Bilirubin 0.4 0.0 - 1.4 mg/dL LAB CHEMISTRY METHOD 05/21/2025 11:47 AM [facility] Blood Venous blood specimen / Unknown Venipuncture / Unknown 05/21/2025 11:02 AM EDT 05/21/2025 11:08 AM EDT us Gracie Merritt DO LAB BLOOD ORDERABLES Stephie l Result [facility] [address] [place] [address], * (ABNORMAL) Hemoglobin A1c (09/22/2021) Pathologist [facility] Hemoglobin A1C 7.2(A) <=6.5 % Blood Venous blood specimen / Unknown [facility] Provider MD LAB BLOOD ORDERABLES Stephie l Result * Urine Albumin Creatinine Ratio (08/05/2021) Pathologist [facility] Urine Albumin Creatinine Ratio Abstracted [facility] Provider MD HEALTH MAINTENANCE Final Result * Lipid panel (08/05/2021) Pathologist [facility] LDL/HDL Ratio 2 0 - 4 Triglycerides 115 0 - 150 mg/dL Cholesterol 154 0 - 200 mg/dL HDL 67 >=40 mg/dL LDL Cholesterol 64 0 - 100 mg/dL Blood Venous blood specimen / Unknown [facility] Provider MD LAB BLOOD ORDERABLES Stephie l Result * Colonoscopy (07/02/2021) Pathologist [facility] Colonoscopy No interpreta tion,abstr acted Anatomical Region Laterality Modality Other [facility] Provider MD HEALTH MAINTENANCE Final Result * SCREENING MAMMOGRAPHY [...] risk category Moderate (15% - 20%) Result [facility] Edith Wong MD IMG XR PROCEDURES Final Resu lt * Cervical Cancer Screening: HPV (01/17/2019) Pathologist [facility] Cervical Cancer Screening: HPV Negative Abstracted Result [facility] Provider HEALTH MAINTENANCE Final Result * Hepatitis C Screening (09/09/2018) Pathologist [facility] Hepatitis C Screening Abstracted [facility] Provider HEALTH MAINTENANCE Final Result * HIV Screening (03/22/2006) [facility] HIV Screening Abstracted Result [facility] Historical Provider HEALTH MAINTENANCE Final Result from Last 3 Months or Most Recently Relevant to Health Maintenance Insurance [employer] Member Subscriber Plan / Payer (Ef fective 2022-Present) Name:SHAMA REYES Relation to Subscriber:Self Name:Shama Reyes Payer ID:[id number] Group ID:[id number] Type:Not on file Address: [address] [place] [address] Advance Directives Documents on File Type Date Recorded Patient Patient Support Assistant Expl anation Advance Directives and Living Will [...] currently active code status orders. Care Teams Senior Underwriting Assistant Relationship Specialty Start Date End Date Anel Barrera MD [address] [place] [address] PCP - General Internal Medicine 05/18/25
== END 2025-07-11 11:00 | disposition home or self-care (01) ==
LOC: HO.ENCR 10:03
PROVIDERS: PCP Internal Medicine; Visit Provider Student in an Organized Health Care Education/Training Program
DX: E11.65 Type 2 diabetes mellitus with hyperglycemia (principal); Z79.4 Long term (current) use of insulin
CPT/HCPCS: 99215

== ENCOUNTER → 2025-07-11 10:03 | Outpatient (BNVA) | payer OTHER, SELFPAY | PROVIDERS: PCP Internal Medicine; Visit Provider Student in an Organized Health Care Education/Training Program | DX: E11.65 Type 2 diabetes mellitus with hyperglycemia (principal); Z79.4 Long term (current) use of insulin | CPT/HCPCS: 82947; 95250; 99212 ==

== ENCOUNTER 2025-07-18 07:52 | Outpatient (AMB) | payer OTHER, SELFPAY ==
--- OUTSIDE RECORDS SUMMARY | 2024-04-10 09:00 | XMS_ITS ---
Author Organization [facility] Address 81 [facility] [place] [address] Care Team Providers Care Community Arts Worker Name Role Phone Bruce ANDREW, Anel Irene Primary Care Provider Un available Sheela Day Unavailable [phone] Jun Goss Unavailable Unavailable REASON FOR VISIT DR HOLLIS Encounters Encounter Location Date Provider Diagnosis [address] [address] 04/10/2024 Sheela Day Plan Of Treatment No Information Progress Notes * Shama ANAND ADOB:1965 (60 yo F)Acc No.[id number]:04/10/2024 Progress Note Patient: Shama ARTEAGA Provider: Shukri Day DPM :1965 A ge:58 Y S ex:Female Date:04/10/2024 Address:[address] [place], [place] [id number] Pcp:Suman Alas Subjective: * Chief Complaints: * [...] 04/10/2024 Generated for Printi ng/Faxing/eTransmitting on: 1 07:56 AM EDT
--- OUTSIDE RECORDS SUMMARY | 2024-04-17 06:00 | XMS_ITS ---
Author Organization [facility] Address 81 [facility] [place] [address] Care Team Providers Care Electrical Prospector Name Role Phone Bruce ANDREW, Anel Irene Primary Care Provider Un available Sheela Day Unavailable [phone] Jun Goss Unavailable Unavailable Encounters Encounter Location Date Provider Diagnosis [address] [address] 04/17/2024 Sheela Day Plan Of Treatment No Information Progress Notes * Shama ANAND ADOB:1965 (60 yo F)Acc No.[id number]:04/17/2024 Progress Note Patient: Shama ARTEAGA Provider: Shukri Day DPM :1965 A ge:58 Y S ex:Female Date:04/17/2024 Address:[address] [place], [place] [phone] Pcp:Suman Alas Subjective: * Chief Complaints: * [...] 0 04/17/2024 Generated for Madinai teri/Ricardo/eTransmitting on: 07:57 AM EDT
--- OUTSIDE RECORDS SUMMARY | 2024-08-07 10:30 | XMS_ITS ---
Author Organization [facility] Address [address] [facility] [place] [address] Care Team Providers Care Yarn Cleaner Name Role Phone Bruce ANDREW, Anel Irene Primary Care Provider Un available Sheela Day Unavailable [phone] Jun Goss Unavailable Unavailable Encounters Encounter Location Date Provider Diagnosis [address] [address] 08/07/2024 Sheela Day Plan Of Treatment No Information Progress Notes * Shama ANAND ADOB:1965 (60 yo F)Acc No.[id number]:08/07/2024 Progress Note Patient: Shama ARTEAGA Provider: Shukri Day DPM :1965 A ge:59 Y S ex:Female Date:08/07/2024 Address:[address] [place], [place] [id number] Pcp:Suman Alas Subjective: * Chief Complaints: * [...] DPM Date: Generated for Madinai teri/Ricardo/eTransmitting on: 07:57 AM EDT
--- OUTSIDE RECORDS SUMMARY | 2024-09-04 09:00 | XMS_ITS ---
Author Organization [facility] Address [address] [facility] [place] [address] Care Team Providers Care Client Partner Name Role Phone Bruce ANDREW, Anel Irene Primary Care Provider Un available Sheela Day Unavailable [phone] Jun Goss Unavailable Unavailable Encounters Encounter Location Date Provider Diagnosis [address] [address] 09/04/2024 Sheela Day Plan Of Treatment No Information Progress Notes * Shama ANAND ADOB:1965 (60 yo F)Acc No.[id number]:09/04/2024 Progress Note Patient: Shama ARTEAGA Provider: Shukri Day DPM :1965 A ge:59 Y S ex:Female Date:09/04/2024 Address:[address] [place], [place] [phone] Pcp:Suman Alas Subjective: * Chief Complaints: * [...] Date: 11/04/2023 Generated for Myles williamson/Ricardo/eTransmitting on: 07:57 AM EDT
--- OUTSIDE RECORDS SUMMARY | 2025-07-18 07:57 | XMS_ITS | Patient Health Record ---
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 Name Role Phone Bruce ANDREW, Anel Irene Primary Care Provider Un available Sheela Day Unavailable [phone] Jun Goss Unavailable Unavailable Allergies No Known [...] Polyneuropathy due to type 2 diabetes mellitus (280232903) Type 2 diabetes mellitus with diabetic polyneuropathy (E11.42) Active confirmed Problem Polyneuropathy due to diabetes mellitus type I (926591651) Type 1 diabetes mellitus with diabetic polyneuropathy (E10.42) Active confirmed Problem Bilateral atherosclerosis of arteries of lower limbs (disorder) (52466610888445853 ) Atherosclerosis of artery of both lower extremities (I70.203) Active confirmed Problem Polyneuropathy due to diabetes mellitus type I (583658893) Type 1 DM with polyneuropathy (E10.42) Active confirmed Problem Critical limb ischemia of right lower extremity (I70.221) Active confirmed Encounters Encounter Location Date Provider Diagnosis [facility] [place] [address] [place] [address] 08/03/2024 [facility] [address] 09/04/2024 Sheela Day Plan Of Treatment No Information Insurance Providers Payer Name Payer Address Payer Phone Subscriber Number Group Number Insured Name Patient Relationship to Insured Coverage Start Date Coverage End Date [facility] [employer] Claims [address] [place] [id number] Shama Reyes Self - patient is the [...]
--- OUTSIDE RECORDS SUMMARY | 2025-07-18 07:57 | XMS_ITS | Clinical Summary ---
Author Organization [facility] Address [address] 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
--- OUTSIDE RECORDS SUMMARY | 2025-07-18 07:57 | XMS_ITS | Clinical Summary ---
Author Organization [facility] Address [address] [place] [address] Phone Care Team Providers Care Starting Gate Driver Name Role Phone Anel Barrera MD Primary Care Provider [phone] Allergies Active Allergy Reactions Criticality Noted Date [...] Problem Noted Date Diagnosed Date Cerebrovascular accident ([facility] V24, [facility] V 28) 05/17/2025 Polysubstance abuse ([facility] V24, [facility] V28) 0 01/23/2021 Overview (09/29/2024): [...] Overdose of opiate or relate d narcotic ([facility] V24, [facility] V28) 04/06/2018 Overview (09/29/2024): 04/06/2018 Microalbuminuria 03/15/2018 Bipolar 1 disorder ([facility] V24, [facility] V28) Carpal tunnel syndrome 02/25/2018 Overview (09/29/2024): S/p release 2014 Hyperlipidemia associated wi th type 2 diabetes mellitus ([facility] V24, [facility] V28) 02/25/2018 Diabetic peripheral neuropathy ([facility] V24, [facility] V28) 02/25/2018 Diabetes mellitus type 2 wit h neurological manifestations ([facility] V24, [facility] V28) 11/07/2014 Nuclear sclerosis 10/30/2014 Overview (09/29/2024): Dr Kaur note 01-24-2008 Shoulder impingement syndrome 10/30/2014 Overview (09/29/2024): Tammy Singer note 02-19-2014 HTN (hypertension), benign 02/19/2009 Necrobiosis lipoidica diabet icorum ([facility] V24, [facility] V28) 02/01/2009 Posttraumatic stress disorder 07/16/2006 Type 2 diabetes mellitus ([facility] V24, [facility] V 28) 10/01/2005 Encounters Date Type Department Care Team Description 05/21/[address] [facility] [address] [place] [id number] 05/17/2025 3:56 PM EDT - 05/25/2025 12:35 PM EDT Hospital Encounter [facility] [address] [place] [phone] Gracie Merritt DO Cerebrovascular accident ([facility] V24, [facility] V28) [I63.9] (Primary Dx); Cerebrovascular accident (CVA), unspecified mechanism ([facility] V24, [facility] V28) Discharge Disposition: Home-Health Care [...] HERNIA REPAIR/ING OTHER SURGICAL HISTORY 04/2009 PROCEDURE: NM LAPS GASTRIC RESTRICTIVE PROCEDURE PLACE DEVICE; COMMENT: [place] [place] 224lbs starting wt HAND SURGERY PROCEDURE: HISTORICAL HAND SURGERY; COMMENT: Bilateral carpal tunnel release HERNIA REPAIR PROCEDURE: HISTORICAL HERNIA REPAIR/ING SECTION PROCEDURE: HISTORICAL ; COMMENT: x 2 BREAST REDUCTION 1981 Bilateral PROCEDURE: NM BREAST REDUCTION COLONOSCOPY 07/02/2021 PROCEDURE: HISTORICAL COLONOSCOPY; COMMENT: polyp Medical History Medical History Date Comments Bipolar 1 disorder ([facility] V24, [facility] V28) 02/25/2018 DX:Bipolar 1 disorder (HCC) Diabetes mellitus type 2 wit h neurological manifestations ([facility] V24, [facility] V28) 11/07/2014 DX:Diabetes mellitus type 2 with neurological manifestations (HCC) Diabetic peripheral neuropat hy ([facility] V24, [facility] V28) 02/25/2018 DX:Diabetic peripheral neur opathy (HCC) Type 2 diabetes mellitus wit h diabetic retinopathy ([facility] V24, [facility] V28) 10/01/2005 DX:Type 2 diabe noel mellitus with diabetic retinopathy (HCC) HTN (hypertension), benign 02/19/2009 DX:HT N (hypertension), benign Hyperlipidemia associated wi th type 2 diabetes mellitus ([facility] V24, [facility] V28) 02/25/2018 DX:Hyperlipidemia associated with type 2 diabetes mellitus (HCC) Necrobiosis lipoidica diabet icorum ([facility] V24, [facility] V28) 02/01/2009 DX:Necrobiosis lipoidica diabeticorum (HCC) Nuclear sclerosis 10/30/2014 DX:Nuclear scl erosis; COMMENT: Dr Kaur note 01-24-2009 Posttraumatic stress disorder 07/16/2006 DX :Posttraumatic stress disorder Shoulder impingement syndrome 10/30/2014 DX :Shoulder impingement syndrome; COMMENT: Tammy Singer note 02-19-2014 Tobacco abuse 03/14/2018 DX:Tobacco abuse Carpal tunnel syndrome 02/25/2018 DX:Carpal tunnel syndrome; COMMENT: S/p release 2014 Type 2 diabetes with nephrop athy ([facility] V24, [facility] V28) 03/15/2018 DX:Type 2 diabetes with nep hropathy (HCC) Microalbuminuria 03/15/2018 DX:Microalbumin uria Overdose of opiate or relate d narcotic ([facility] V24, [facility] V28) 04/06/2018 DX:Overdose of opiate or re lated narcotic ([facility]); COMMENT: 04/06/2018 Positive urine drug [...] Anemia of chronic disease 09/07/2018 Cerebrovascular accident ([facility] V24, [facility] V28) 05/17/2025 Family History Medical History Relation [...] retinopathy without macular edema, bilateral ([facility]/H[facility] V24, [facility] V28) 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 [facility] Extra Tube Hold for add-ons. 05/24/2025 8:01 AM T [facility] Comment:Auto resulted. Blood Venous blood specimen / Unknown Venipuncture / Unknown 05/24/2025 5:51 AM EDT 05/24/2025 6:33 AM EDT us Gracie Merritt DO LAB BLOOD ORDERABLES Stephie l Result [facility] [address] [place] [address], * (ABNORMAL) CBC - Every 3 Days (05/24/2025 5:51 AM EDT) [facility] [address] WBC 7.5 4.8 - 10.8 K/mcL LAB HEMETOLOGY METHOD 05/24/2025 7:12 AM [facility] RBC 3.10(L) 3.80 - 4.80 M/mcL LAB HEMETOLOGY METHOD 05/24/2025 7:12 AM [facility] Hemoglobin 9.1(L) 11.5 - 16.0 g/dL LAB HEMETOLOGY METHOD 05/24/2025 7:12 AM [facility] Hematocrit 28.7(L) 35.0 - 47.0 % LAB HEMETOLOGY METHOD 05/24/2025 7:12 AM [facility] MCV 92.0 79.0 - 98.0 FL LAB HEMETOLOGY METHOD 05/24/2025 7:12 AM [facility] MCH 29.2 27.0 - 32.0 pcg LAB HEMETOLOGY METHOD 05/24/2025 7:12 AM [facility] MCHC 31.7(L) 32.0 - 37.0 g/dL LAB HEMETOLOGY METHOD 05/24/2025 7:12 AM EDT [facility] RDW 15.5(H) 11.0 - 15.0 % LAB HEMETOLOGY METHOD 05/24/2025 7:12 AM EDT [facility] Platelets 301 130 - 400 K/mcL LAB HEMETOLOGY METHOD 05/24/2025 7:12 AM EDT [facility] MPV 12.0(H) 7.0 - 11.0 FL LAB HEMETOLOGY METHOD 05/24/2025 7:12 AM EDT [facility] NRBC 0.0 <1.0 % LAB HEMETOLOGY METHOD 05/24/2025 7:12 AM EDT [facility] NRBC Absolute 0.00 <0.10 K/mcL LAB HEMETOLOGY METHOD 05/24/2025 7:12 AM EDT [facility] Blood Venous blood specimen / Unknown Venipuncture / Unknown 05/24/2025 5:51 AM EDT 05/24/2025 6:32 AM EDT us Gracie Merritt DO LAB BLOOD ORDERABLES Stephie l Result [facility] [address] [place] [address], * Troponin I high sensitivity (05/23/2025 3:27 PM EDT) High Sensitivity Troponin I 52 <=54 ng/L LAB CHEMISTRY METHOD 05/23/2025 4:30 PM EDT [facility] Blood Venous blood specimen / Unknown Venipuncture / Unknown 05/23/2025 3:27 PM EDT 05/23/2025 3:43 PM EDT Narrative [facility] - 05/23/2025 4:30 PM EDT High levels of biotin in samples may falsely decrease hsTroponin values. Use caution when interpreting hsTroponin results in patients taking biotin who exhibit renal impairment (eGFR <60) or in patients taking more than 20 mg/day of biotin. Carmen MERRILL LAB BLOOD ORDERABLES Final R esult Performing Organization Address [facility]/ZIP Co de Phone Number [facility] [address] [place] [address], [place] [phone] * ECG 12 lead (05/23/2025 2:57 PM EDT) [facility] Ventricular Rate ECG 63 BPM GEMUSE Atrial Rate 63 BPM GEMUSE P-R Interval 136 ms GEMUSE QRS Duration 122 ms GEMUSE Q-T Interval 474 ms GEMUSE QTc 485 ms GEMUSE P Wave [place] 41 degrees GEMUSE R [place] 4 degrees GEMUSE T [place] 124 degrees GEMUSE ECG Interpretation Normal sinus rhythm Non-specific intra-ventricu lar conduction delay Nonspecific T wave abnormality Abnormal ECG No previous ECGs available Confirmed by ERIN PARIKH ([id number]) on 05/24/2025 7:33:18 PM GEMUSE 05/23/2025 2:57 PM EDT 05/24/2025 7:33 PM EDT Carmen MERRILL ECG ORDERABLES Final Result Performing Organization Address [facility] Co de Phone Number GEMUSE * XR [...] Signed Date: 05/23/2025 13:28 ET Workstation ID: [id number] Transcribed By: Self Edit Transcribed Date: 05/23/2025 [...] Signed Date: 05/23/2025 13:28 ET Workstation ID: [id number] Transcribed By: Self Edit Transcribed Date: 05/23/2025 13:22 ET us Carmen MERRILL IMG XR PROCEDURES Final Resu lt * (ABNORMAL) CBC auto differential (05/23/2025 12:22 PM EDT) Only the most recent of5 resultswithin the time period is included. WBC 8.0 4.8 - 10.8 /[facility] LAB HEMETOLOGY METHOD 05/23/2025 1:13 PM [facility] RBC 3.00(L) 3.80 - 4.80 M/mcL LAB HEMETOLOGY METHOD 05/23/2025 1:13 PM [facility] Hemoglobin 8.9(L) 11.5 - 16.0 g/dL LAB HEMETOLOGY METHOD 05/23/2025 1:13 PM [facility] Hematocrit 27.9(L) 35.0 - 47.0 % LAB HEMETOLOGY METHOD 05/23/2025 1:13 PM [facility] MCV 92.4 79.0 - 98.0 FL LAB HEMETOLOGY METHOD 05/23/2025 1:13 PM [facility] MCH 29.5 27.0 - 32.0 pcg LAB HEMETOLOGY METHOD 05/23/2025 1:13 PM [facility] MCHC 31.9(L) 32.0 - 37.0 g/dL LAB HEMETOLOGY METHOD 05/23/2025 1:13 PM [facility] RDW 15.6(H) 11.0 - 15.0 % LAB HEMETOLOGY METHOD 05/23/2025 1:13 PM [facility] Platelets 273 130 - 400 K/mcL LAB HEMETOLOGY METHOD 05/23/2025 1:13 PM [facility] MPV 11.9(H) 7.0 - 11.0 FL LAB HEMETOLOGY METHOD 05/23/2025 1:13 PM [facility] NRBC 0.0 <1.0 % LAB HEMETOLOGY METHOD 05/23/2025 1:13 PM [facility] NRBC Absolute 0.00 <0.10 K/mcL LAB HEMETOLOGY METHOD 05/23/2025 1:13 PM [facility] Neutrophils Relative 70.6 % LAB HEMETOLOGY METHOD 05/23/2025 1:13 PM [facility] Lymphocytes Relative 20.4 % LAB HEMETOLOGY METHOD 05/23/2025 1:13 PM [facility] Monocytes Relative 6.4 % LAB HEMETOLOGY METHOD 05/23/2025 1:13 PM [facility] Eosinophils Relative 1.3 % LAB HEMETOLOGY METHOD 05/23/2025 1:13 PM [facility] Basophils Relative 0.9 % LAB HEMETOLOGY METHOD 05/23/2025 1:13 PM [facility] Immature Granulocytes Relative 0.4 % LAB HEMETOLOGY METHOD 05/23/2025 1:13 PM [facility] Neutrophils Absolute 5.65 1.50 - 7.00 K/mcL LAB HEMETOLOGY METHOD 05/23/2025 1:13 PM [facility] Lymphocytes Absolute 1.63 1.00 - 5.00 K/mcL LAB HEMETOLOGY METHOD 05/23/2025 1:13 PM [facility] Monocytes Absolute 0.51 0.20 - 1.00 K/mcL LAB HEMETOLOGY METHOD 05/23/2025 1:13 PM [facility] Eosinophils Absolute 0.10 0.00 - 0.50 K/mcL LAB HEMETOLOGY METHOD 05/23/2025 1:13 PM [facility] Basophils Absolute 0.07 0.00 - 0.20 K/mcL LAB HEMETOLOGY METHOD 05/23/2025 1:13 PM [facility] Immature Granulocytes Absolute 0.03 0.00 - 0.03 K/mcL LAB HEMETOLOGY METHOD 05/23/2025 1:13 PM [facility] Blood Venous blood specimen / Unknown Venipuncture / Unknown 05/23/2025 12:22 PM EDT 05/23/2025 12:30 PM EDT Carmen MERRILL LAB BLOOD ORDERABLES Final R esult Performing Organization Address [facility]/ZIP Co de Phone Number [facility] [address] [place] [address], [place] [phone] * (ABNORMAL) B-type natriuretic peptide (05/23/2025 12:22 PM EDT) [facility] BNP 1,227(H) <=100 pcg/mL LAB CHEMISTRY METHOD 05/23/2025 2:13 PM EDT [facility] Blood Venous blood specimen / Unknown Venipuncture / Unknown 05/23/2025 12:22 PM EDT 05/23/2025 12:30 PM EDT Carmen MERRILL LAB BLOOD ORDERABLES Final R esult Performing Organization Address [facility] de Phone Number [facility] [address] [place] [address], [place] [phone] * (ABNORMAL) Basic metabolic panel (05/23/2025 12:22 PM EDT) Only the most recent of2 resultswithin the time period is included. [facility] Sodium 135 133 - 145 mmol/L LAB CHEMISTRY METHOD 05/23/2025 1:59 PM EDT [facility] Potassium 4.3 3.5 - 5.5 mmol/L LAB CHEMISTRY METHOD 05/23/2025 1:59 PM EDT [facility] Chloride 107 96 - 110 mmol/L LAB CHEMISTRY METHOD 05/23/2025 1:59 PM EDT [facility] CO2 21 21 - 32 mmol/L LAB CHEMISTRY METHOD 05/23/2025 1:59 PM EDT [facility] Anion Gap 7 3 - 11 LAB CHEMISTRY METHOD 05/23/2025 1:59 PM EDT [facility] Glucose 225(H) 70 - 100 mg/dL LAB CHEMISTRY METHOD 05/23/2025 1:59 PM EDT [facility] BUN 23 5 - 25 mg/dL LAB CHEMISTRY METHOD 05/23/2025 1:59 PM EDT [facility] Creatinine 1.35(H) 0.50 - 1.10 mg/dL LAB CHEMISTRY METHOD 05/23/2025 1:59 PM EDT [facility] eGFR 45(L) >=60 mL/min/1. 73m2 LAB CHEMISTRY METHOD 05/23/2025 1:59 PM EDT [facility] Comment:Calculation based on the Chronic Kidney Disease Epidemiology Collaboration (CKD-EPI) equation refit without adjustment for race. BUN/Creatinine Ratio 17.0 LAB CHEMISTRY METHOD 05/23/2025 1:59 PM EDT [facility] Calcium 8.4(L) 8.5 - 10.5 mg/dL LAB CHEMISTRY METHOD 05/23/2025 1:59 PM EDT [facility] Blood Venous blood specimen / Unknown Venipuncture / Unknown 05/23/2025 12:22 PM EDT 05/23/2025 12:30 PM EDT us Carmen MERRILL LAB BLOOD ORDERABLES Final R esult [facility] [address] [place] [address], * Activated Partial Thromboplastin Time - STAT (05/23/2025 9:49 AM EDT) aPTT 29.8 24.1 - 39.3 sec LAB COAGULATION METHOD 05/23/2025 10:07 AM EDT [facility] Blood Venous blood specimen / Unknown Venipuncture / Unknown 05/23/2025 9:49 AM EDT 05/23/2025 9:55 AM EDT Gracie Merritt DO LAB BLOOD ORDERABLES Stephie l Result [facility] [address] [place] [address], [place] [phone] * Prothrombin Time with INR - STAT (05/23/2025 9:49 AM EDT) Only the most recent of2 resultswithin the time period is included. [facility] Protime 12.1 10.6 - 13.9 sec LAB COAGULATION METHOD 05/23/2025 10:07 AM EDT [facility] INR 1.0 LAB COAGULATION METHOD 05/23/2025 10:07 AM EDT [facility] Blood Venous blood specimen / Unknown Venipuncture / Unknown 05/23/2025 9:49 AM EDT 05/23/2025 9:55 AM EDT [facility] BLOOD ORDERABLES Stephie l Result Performing Organization Address City/[facility]/ZIP Co de Phone Number [facility] [address] [place] [address], [place] [phone] * Lavender tube (05/22/2025 4:22 PM EDT) [facility] Extra Tube Hold for add-ons. 05/22/2025 6:01 PM EDT [facility] Comment:Auto resulted. Blood Venous blood specimen / Unknown 05/22/2025 4:22 PM EDT 05/22/2025 4:48 PM EDT Gracie Brownleeese DO LAB BLOOD ORDERABLES Stephie l Result [facility] [address] [place] [address], [place] [phone] * Type and screen (05/22/2025 4:22 PM EDT) [facility] ABO Group A 05/22/2025 5:32 PM EDT [facility] Rh Type Positive 05/22/2025 5:32 PM EDT [facility] Antibody Screen Negative 05/22/2025 5:32 PM EDT [facility] Blood Venous blood specimen / Unknown Venipuncture / Unknown 05/22/2025 4:22 PM EDT 05/22/2025 4:47 PM EDT Marlene MERRILL LAB BLOOD BANK TEST ORDERABLE S Final Result Performing Organization Address [facility]/ZIP Co de Phone Number [facility] [address] [place] [address], [place] [phone] * Magnesium (05/22/2025 5:57 AM EDT) Only the most recent of2 resultswithin the time period is included. [facility] Magnesium 2.0 1.9 - 2.6 mg/dL LAB CHEMISTRY METHOD 05/22/2025 7:43 AM EDT [facility] Comment:Results verified by repeat testing Blood Venous blood specimen / Unknown Venipuncture / Unknown 05/22/2025 5:57 AM EDT 05/22/2025 6:23 AM EDT Karen Lance NP LAB BLOOD ORDERABLES Final Result [facility] [address] [place] [address], [place] [phone] * (ABNORMAL) Urinalysis with reflex microscopic and culture (05/21/2025 12:09 PM EDT) [facility] Specific [place] Urine 1.022 1.003 - 1.030 LAB URINALYSIS - AUTOMATED METHOD 05/21/2025 1:16 PM EDT [facility] pH, Urine 8.5(A) 5.0 - 8.0 pH LAB URINALYSIS - AUTOMATED METHOD 05/21/2025 1:16 PM [facility] Leukocytes, Urine Trace(A) Negative LAB URINALYSIS - AUTOMATED METHOD 05/21/2025 1:16 PM [facility] Nitrite, Urine Negative Negative LAB URINALYSIS - AUTOMATED METHOD 05/21/2025 1:16 PM [facility] Protein, Urine 30(A) <=Trace mg/dL LAB URINALYSIS - AUTOMATED METHOD 05/21/2025 1:16 PM [facility] Glucose, Urine Negative Negative mg/dL LAB URINALYSIS - AUTOMATED METHOD 05/21/2025 1:16 PM [facility] Ketones, Urine Negative Negative mg/dL LAB URINALYSIS - AUTOMATED METHOD 05/21/2025 1:16 PM [facility] Urobilinogen, Urine 0.2 0.2 - 1.0 mg/dL LAB URINALYSIS - AUTOMATED METHOD 05/21/2025 1:16 PM [facility] Bilirubin, Urine Negative Negative LAB URINALYSIS - AUTOMATED METHOD 05/21/2025 1:16 PM [facility] Blood, Urine Negative Negative LAB URINALYSIS - AUTOMATED METHOD 05/21/2025 1:16 PM [facility] RBC, Urine 1.1 0 - 4 /HPF LAB URINALYSIS - AUTOMATED METHOD 05/21/2025 1:16 PM [facility] WBC, Urine 4.3(H) 0 - 4 /HPF LAB URINALYSIS - AUTOMATED METHOD 05/21/2025 1:16 PM [facility] Squamous Epithelial, Urine 88(H) 0 - 60 /LPF LAB URINALYSIS - AUTOMATED METHOD 05/21/2025 1:16 PM [facility] Bacteria, Urine Many(A) Negative /HPF LAB URINALYSIS - AUTOMATED METHOD 05/21/2025 1:16 PM EDT [facility] Hyaline Casts, Urine 0.4 0 - 3 /LPF LAB URINALYSIS - AUTOMATED METHOD 05/21/2025 1:16 PM EDT [facility] Urine Urine specimen obtained by clean catch procedure / Unknown Non-blood Collection / Unknown 05/21/2025 12:09 PM EDT 05/21/2025 12:33 PM EDT [employer] LAB URINE ORDERABLES Stephie l Result Performing Organization Address [facility]/ZIP Co de Phone Number [facility] [address] [place] [address], [place] [phone] * Adams urine culture tube (05/21/2025 12:09 PM EDT) Pathologist [facility] Extra Tube Hold for add-ons. 05/21/2025 2:01 PM EDT [facility] Comment:Auto resulted. Urine Urine specimen obtained by clean catch procedure / Unknown Non-blood Collection / Unknown 05/21/2025 12:09 PM EDT 05/21/2025 12:33 PM EDT [employer] LAB URINE ORDERABLES Stephie l Result Performing Organization Address City/[facility]/ZIP Co de Phone Number [facility] [address] [place] [address], [place] [phone] * (ABNORMAL) Culture urine (05/21/2025 12:09 PM EDT) Culture, Urine >=100,000 CFU/mL Escherichia coli(A) AMBROSIO 05/24/2025 8:02 AM EDT [facility] Comment: This is an edited result. Previous organism was Gram negative bacilli on 05/22/2025 at 0948 EDT. Culture, Urine 50,000-100,000 CFU/mL Klebsiella pneumoniae ssp pneumoniae(A) AMBROSIO 05/24/2025 8:02 AM EDT [facility] Comment: The organism value for this [...] MICROBIOLOGY - GENERA L ORDERABLES Final Result [facility] [address] [place] [address], [place] [phone] * (ABNORMAL) Comprehensive metabolic panel (05/21/2025 11:02 AM EDT) Only the most recent of2 resultswithin the time period is included. Sodium 132(L) 133 - 145 mmol/L LAB CHEMISTRY METHOD 05/21/2025 11:47 AM [facility] Potassium 4.6 3.5 - 5.5 mmol/L LAB CHEMISTRY METHOD 05/21/2025 11:47 AM [facility] Chloride 103 96 - 110 mmol/L LAB CHEMISTRY METHOD 05/21/2025 11:47 AM [facility] CO2 21 21 - 32 mmol/L LAB CHEMISTRY METHOD 05/21/2025 11:47 AM [facility] Anion Gap 8 3 - 11 LAB CHEMISTRY METHOD 05/21/2025 11:47 AM [facility] Glucose 155(H) 70 - 100 mg/dL LAB CHEMISTRY METHOD 05/21/2025 11:47 AM [facility] BUN 28(H) 5 - 25 mg/dL LAB CHEMISTRY METHOD 05/21/2025 11:47 AM [facility] Creatinine 1.63(H) 0.50 - 1.10 mg/dL LAB CHEMISTRY METHOD 05/21/2025 11:47 AM [facility] eGFR 36(L) >=60 mL/min/1. 73m2 LAB CHEMISTRY METHOD 05/21/2025 11:47 AM [facility] Comment:Calculation based on the Chronic Kidney Disease Epidemiology Collaboration (CKD-EPI) equation refit without adjustment for race. BUN/Creatinine Ratio 17.2 LAB CHEMISTRY METHOD 05/21/2025 11:47 AM [facility] Calcium 8.5 8.5 - 10.5 mg/dL LAB CHEMISTRY METHOD 05/21/2025 11:47 AM [facility] AST (SGOT) 19 10 - 42 unit/L LAB CHEMISTRY METHOD 05/21/2025 11:47 AM [facility] ALT (SGPT) 13 10 - 60 unit/L LAB CHEMISTRY METHOD 05/21/2025 11:47 AM [facility] Alkaline Phosphatase 216(H) 42 - 121 unit/L LAB CHEMISTRY METHOD 05/21/2025 11:47 AM [facility] Total Protein 6.6 6.0 - 8.0 g/dL LAB CHEMISTRY METHOD 05/21/2025 11:47 AM [facility] Albumin 2.7(L) 3.2 - 5.0 g/dL LAB CHEMISTRY METHOD 05/21/2025 11:47 AM [facility] Total Bilirubin 0.4 0.0 - 1.4 mg/dL LAB CHEMISTRY METHOD 05/21/2025 11:47 AM [facility] Blood Venous blood specimen / Unknown Venipuncture / Unknown 05/21/2025 11:02 AM EDT 05/21/2025 11:08 AM EDT us Gracie Merritt DO LAB BLOOD ORDERABLES Stephie l Result [facility] [address] [place] [address], * (ABNORMAL) Hemoglobin A1c (09/22/2021) Pathologist [facility] Hemoglobin A1C 7.2(A) <=6.5 % Blood Venous blood specimen / Unknown [facility] Provider MD LAB BLOOD ORDERABLES Stephie l Result * Urine Albumin Creatinine Ratio (08/05/2021) Pathologist [facility] Urine Albumin Creatinine Ratio Abstracted [facility] Provider MD HEALTH MAINTENANCE Final Result * Lipid panel (08/05/2021) Pathologist [facility] LDL/HDL Ratio 2 0 - 4 Triglycerides 115 0 - 150 mg/dL Cholesterol 154 0 - 200 mg/dL HDL 67 >=40 mg/dL LDL Cholesterol 64 0 - 100 mg/dL Blood Venous blood specimen / Unknown [facility] Provider MD LAB BLOOD ORDERABLES Stephie l Result * Colonoscopy (07/02/2021) Pathologist [facility] Colonoscopy No interpreta tion,abstr acted Anatomical Region Laterality Modality Other [facility] Provider MD HEALTH MAINTENANCE Final Result * [...] risk category Moderate (15% - 20%) Result [facility] Edith Wong MD IMG XR PROCEDURES Final Resu lt * Cervical Cancer Screening: HPV (01/17/2019) Pathologist [facility] Cervical Cancer Screening: HPV Negative Abstracted Result [facility] Provider HEALTH MAINTENANCE Final Result * Hepatitis C Screening (09/09/2018) Pathologist [facility] Hepatitis C Screening Abstracted [facility] Provider HEALTH MAINTENANCE Final Result * HIV Screening (03/22/2006) [facility] [address] HIV Screening Abstracted Result [facility] Historical Provider HEALTH MAINTENANCE Final Result from Last 3 Months or Most Recently Relevant to Health Maintenance Insurance [employer] MEDICARE Member Subscriber Plan / Payer (Ef fective 2022-Present) Name:SHAMA REYES Relation to Subscriber:Self Name:Shama Reyes Payer ID:[id number] Group ID:[id number] Type:Not on file Address: [address] [place] [address] Advance Directives Documents on File Type Date Recorded Patient Setter Machine Expl anation Advance Directives and Living Will [...] currently active code status orders. Care Teams Starting Gate Driver Relationship Specialty Start Date End Date Anel Barrera MD [address] [place] [address] PCP - General Internal Medicine 05/18/25
--- OUTSIDE RECORDS SUMMARY | 2025-07-18 07:57 | XMS_ITS | Clinical Summary ---
Author Organization [facility] Address [address] [place] [address] Care Team Providers Care Weight Shifter Name Role Phone Bridgette Richmond DMD Primary Care Provider Source Comments PLEASE NOTE, if this patient [...] Plan of Treatment Not on file Insurance [facility] [place] MEDICA[place] DENTAL [facility] Care Teams Weight Shifter Relationship Specialty Start Date End Date Bridgette Richmond DMD [address] [place] [address] PCP - General 12/20/20
[2025-07-18 08:40] VITALS: BP 120/62; PULSE 57
--- NOTE | 2025-07-18 08:40 | A.OFFVIS_ITS ---
Vital Signs 07/18/25 08:40 Height 5 ft 2 in BMI Reason not done Patient refused/unable BP 120/62 Blood Pressure Location Lt brachial Position Sitting Pulse 57 Pulse Source Monitor Intake Visit Reasons: bmc d/c Allergies No Known Allergies Allergy (Verified 07/11/25 10:12) Medication List - Last Reconciled 07/18/25 by Tomasz Jones MD albuterol sulfate 90 mcg/actuation (Ventolin HFA) 2 puffs inhalation Q4-6H PRN atorvastatin 80 mg PO DAILY [Bath strips As directed] [bed rail As directed] [bed wedge As directed] blood sugar diagnostic (FreeStyle Lite Strips) As directed- checks 4 X/day blood-glucose meter (FreeStyle Lite Meter kit) As directed checks 4 X/dasy blood-glucose sensor (Producteev G7 Sensor device) Use daily As directed to monitor glucose. change q 10 days bupropion HCl XL 150 mg PO DAILY buspirone 15 mg PO BID ferrous sulfate (Iron (ferrous sulfate)) 325 mg PO DAILY furosemide 40 mg PO DAILY glucose (Dex4 Glucose) 16 grams (4 x 4 gram) PO Q15M PRN hydroxyzine HCl 10 mg PO BID PRN insulin glargine (Lantus Solostar U-100 Insulin) 10 units (0.1 mL) subcut QPM insulin lispro (Humalog KwikPen (U-100) Insulin) 5 units (0.05 mL) subcut TID isosorbide mononitrate ER 30 mg PO DAILY lancets (FreeStyle Lancets) As directed lidocaine 4% 1 patch topical BID metoprolol tartrate 25 mg PO BID multivitamin 1 tab PO DAILY pantoprazole 40 mg PO QAM pen needle, diabetic (BD Ultra-Fine Mini Pen Needle) As directed 4 times a day [Raised commode As directed] rivaroxaban (Xarelto) 2.5 mg PO BID ropinirole 0.25 mg PO BID [Safety bar For bathroom] ticagrelor 90 mg PO BID trazodone 50 mg PO BEDTIME PRN HPI Comments Details: Patient returns for follow-up. I had seen him once last year but after that, she has seen the nurse practitioner and it seems that she has undergone multiple cardiac catheterizations and I am not entirely up-to-date with all of these events. Upon review, it seems that she initially underwent cardiac catheterization in April of this year following an abnormal coronary CTA. At that time, she underwent circumflex stenting. Subsequently, another admission in May for NSTEMI and she underwent another catheterization for acute stent thrombosis leading to occluded circumflex. Had mechanical thrombectomy. Gurjit newsome, had another catheterization in June for elevated troponin, congestive heart failure and at that time found to have occluded circumflex stent. No interventions performed at that time. Currently, she is seems to be mostly okay. She is not denying any acute complaints [facility] Medical History (Updated 07/18/25 @ 09:02 by Tomasz Jones MD) History of CVA (cerebrovascular accident) Iron deficiency anemia History of opioid abuse Depression with anxiety Peripheral vascular disease Essential hypertension Cigarette smoker motivated to quit Uncontrolled type 2 diabetes mellitus with hyperglycemia Diabetes mellitus with nephropathy Annual visit for general adult medical examination with abnormal findings section wound complications Encounter to establish care Type II diabetes mellitus Diabetes COPD (chronic obstructive pulmonary disease) Surgical History (Updated 07/10/25 @ 12:16 by DEMETRIA Linder) Hx of cardiac cath History of above-knee amputation of right lower extremity H/O neck surgery History of mandibular surgery H/O foot surgery H/O hernia repair H/O section H/O angioplasty History of hysterectomy History of colonoscopy History of laparoscopic adjustable gastric banding S/P bilateral breast reduction S/P carpal tunnel release Status post cataract extraction Family History Sister Breast cancer Mother Breast cancer Substance use disorder Mental health disorder Brother Substance use disorder Brother Substance use disorder Sister No problems noted. 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 Cognitive needs: Yes Hearing needs: No Vision needs: Yes (Glaucoma and cataracts being treated) Review of Systems Const Denies weakness ENT Denies dizziness Card Denies chest pain, Denies chest pain with activity, Denies syncope, Denies rapid heart rate, Denies pedal edema, Denies edema, Denies leg edema, Denies lightheadedness, Denies palpitations, Reports dyspnea, Denies dyspnea on exertion and Denies orthopnea Resp Denies cough, Reports dyspnea and Denies dyspnea on exertion GI Denies hematochezia and Denies change in stool character Musc Denies abnormal gait, Denies muscle cramps, Denies muscle weakness, Denies numbness, Denies radiating pain into limb and Denies tingling Neuro Denies abnormal gait, Denies dizziness, Denies syncope, Denies numbness, Denies tingling and Denies weakness Psych Reports anxiety Endo Denies palpitations Physical Exam Vital Signs: Last Vital Signs Pulse 57 07/18/25 08:40 BP 120/62 07/18/25 08:40 Const General: comfortable and no acute distress Orientation/consciousness: patient oriented x3 HEENT Other: Unremarkable Head: Yes normal to inspection Neck Neck: Yes normal visual inspection Chest Chest palpation & inspection: normal inspection of the chest Resp Auscultation: clear to auscultation bilaterally Cardio Palpation: normal PMI Heart sounds: S1 normal heart sound present, S2 normal heart sound present, no gallops, no murmurs and no rubs GI Palpation (GI): Soft to palpation Back/Spine/Pelvis Other: unremarkable Skin General skin exam: no rashes or lesions noted Neuro General: patient oriented x3 Extrem Other: Right above knee amputation Psych Mental Status: mental status grossly normal Office Procedures EKG Details: EKG with sinus bradycardia at 57/Min; downsloping STs with T inversions in the inferior leads as well as anterolateral leads. [id number], Complete Assessment & Plan Assessment & Plan (1) Coronary artery disease: Code(s): I25.10 - Atherosclerotic heart disease of [place] coronary artery without angina pectoris Category: Medical Plan: In the most recent cardiac catheterization from June 2025, occluded circumflex stent, chronic total occlusion RCA. Normal left main. Proximal LAD with 30% stenosis. Recommendation was medical management. On Brilinta, low-dose Xarelto. High-dose statins. No overt angina. (2) Ischemic cardiomyopathy: Code(s): I25.5 - Ischemic cardiomyopathy Category: Medical Plan: Echo from [facility]-May 2025-LVEF 30%. Basal to mid inferolateral, basal inferior, basal to mid lateral segments thinned and akinetic. Remaining segments hypokinetic. Probable mild aortic stenosis. Moderate mitral annular calcification with mild regurgitation. Recheck echocardiogram. Clinically, no overt heart failure. We will need to optimize GDMT. Not clear if she will be able tolerate Entresto or ANAHY inhibitors as the creatinine is high. On beta-blockers. Eventually other meds like Jardiance we will need to be added. Start cardiac rehabilitation. Orders: Orders CA echo transthoracic complete Today I25.5 - Ischemic cardiomyopathy Cardiac Rehab Today I25.5 - Ischemic cardiomyopathy, I50.9 - Heart failure, unspecified, Z95.5 - Presence of coronary angioplasty implant and graft Coding Level of Care Code Est Pt Level 4 (92131) Complex EM visit Add On G2211 Diagnoses Coronary artery disease I25.10 Ischemic cardiomyopathy I25.5 CPT Codes EKG - CPT: 55616-[id number], Complete ([id number])
== END 2025-07-18 09:06 | disposition home or self-care (01) ==
LOC: HO.HCS 07:53
PROVIDERS: PCP Internal Medicine; Visit Provider Internal Medicine
DX: I25.10 Atherosclerotic heart disease of native coronary artery without angina pectoris (principal); I25.5 Ischemic cardiomyopathy
CPT/HCPCS: 93010; 99214; G2211

== ENCOUNTER → 2025-07-18 07:52 | Outpatient (BNVA) | payer OTHER, SELFPAY | PROVIDERS: PCP Internal Medicine; Visit Provider Internal Medicine | DX: I25.10 Atherosclerotic heart disease of native coronary artery without angina pectoris (principal); I25.5 Ischemic cardiomyopathy | CPT/HCPCS: 93005; 99212 ==

== ENCOUNTER 2025-08-06 10:36 | Outpatient (AMB) | payer OTHER, SELFPAY ==
--- NOTE | 2025-08-06 11:34 | MHC.AMDMED ---
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: No Accompanied by: Self / Same As Patient Allergies No Known Allergies Allergy (Verified 07/11/25 10:12) HPI Comprehensive Diabetes Asmnt Most Recent Diabetes Results: Microalb/Creat Ratio 223.9 ug/mg cr 04/21/22 Cholesterol, (<200) 125 mg/dL 06/30/25 HDL Cholesterol, (>40) 59 mg/dL 06/30/25 Triglycerides, (<150) 118 mg/dL 06/30/25 Creatinine, (0.5-1.4) 1.88 mg/dL H 06/30/25 BUN, (9-16) 40 mg/dL H 06/30/25 Sodium, (135-145) 138 mmol/L 06/30/25 Potassium, (3.3-5.1) 4.3 mmol/L 06/30/25 Chloride, (96-108) 105 mmol/L 06/30/25 Carbon Dioxide, (22-29) 24 mmol/L 06/30/25 Calcium, (8.4-10.2) 9.2 mg/dL 06/30/25 AST, (5-31) 28 U/L 06/30/25 ALT, (0-31) 16 U/L 06/30/25 Total Protein, (6.5-8.0) 6.8 g/dL 06/01/24 Albumin, (3.5-5.0) 3.7 g/dL 06/01/24 [facility] Medical History (Updated 07/18/25 @ 09:02 by Tomasz Jones MD) History of above-knee amputation of right lower extremity History of CVA (cerebrovascular accident) Iron deficiency anemia History of opioid abuse Depression with anxiety Peripheral vascular disease Essential hypertension Cigarette smoker motivated to quit Uncontrolled type 2 diabetes mellitus with hyperglycemia Diabetes mellitus with nephropathy Annual visit for general adult medical examination with abnormal findings section wound complications Encounter to establish care Type II diabetes mellitus Diabetes COPD (chronic obstructive pulmonary disease) Surgical History (Updated 07/10/25 @ 12:16 by DEMETRIA Linder) Hx of cardiac cath H/O neck surgery History of mandibular surgery H/O foot surgery H/O hernia repair H/O section H/O angioplasty History of hysterectomy History of colonoscopy History of laparoscopic adjustable gastric banding S/P bilateral breast reduction S/P carpal tunnel release Status post cataract extraction Family History Sister Breast cancer Mother Breast cancer Substance use disorder Mental health disorder Brother Substance use disorder Brother Substance use disorder Sister No problems noted. 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 checks BG Dexcom G7 Patient? reports glycemic control as: poor Most recent Hgb A1C:8.0%, 05/05/2025 Frequency of low B-3 times a week Low BG treatment: candy Frequency of high BG: daily Does patient check Ketones? yes Has pt been on a pump in the past? no Reviewed insulin pump basics today with Patient. Explained pros and cons of insulin pumps. Showed pt various pumps, infusion sets, and cgms currently available. Reviewed need to wear pump 24/7 and need to change infusion set every 3 days. Also stressed importance of frequent BG checks, 4x daily minimum or use pump that is integrated with CGM.? TDD:31 units Patient demonstrated motivation for continued insulin pump education and understands the need to complete education prior to starting insulin pump for best outcome. Carb Counting Basic Patient presents for appointment carbohydrate counting education. Reviewed the basic principles of carbohydrate counting.? Insulin to carb ratio, and insulin sensitivity factor calculated based on rule of 450 for insulin to carb ratio, and rule of 1500 for insulin sensitivity factor. Instructed patient on the importance of accurate calculation of the amount of carbs per meal for optimal glucose control Reviewed how to calculate mealtime bolus with insulin to carb ratio Reviewed how to calculate correction dose with insulin sensitivity factor Insulin to Carbohydrate ratio:1:15 Correction factor:1:50 Target: 120 mg/dL Patient given healthy plate handout, for resource for carbohydrate counting Encourage patient to fill out food logs, estimating carbohydrates at meals, noting glucose number prior to meal, and how many units of insulin taken prior to meals Pt able to calculated needed insulin based on estimated carbohydrate content Instructed patient that there may need to be adjustment to insulin to carb ratio and sensitivity factor based on blood glucose trends. Portions of this note were created using voice recognition software, please excuse any words or phrases that may have been misinterpreted. Coding Level of Care Code Est Pt Level 1 (93485) Diagnoses Diabetes mellitus due to underlying condition, uncontrolled, with hyperglycemia, with long-term current use of insulin E08.65; Z79.4
--- OUTSIDE RECORDS SUMMARY | 2025-08-06 13:02 | XMS_ITS | Data Portability ---
Author Organization [facility], [facility] Address [address] [place] [id number] Care Team Providers Care Footwear Sales Coordinator Name Role Phone [facility] Referring Provider [phone] Assessment Encounter Date Assessment Date Assessment LastModified by Organization Details LastModified Time 11/08/2023 11/08/2023 As noted, we were called to see this patient regarding concerns of wound healing. Evaluation in the field was performed by my payroll and benefits manager colleague, as noted above, I provided real-time [...] in Arterial blood by Pulse oximetry Systolic And Diastolic Provider Name and Address Organization Details Last Updated DateTime 4 97.1 [degF] 16 /min 72 /min 98 % 98 % 130/78 mm[Hg] Not Available [employer] - production 14:28:41 Social History None recorded. Functional Status None recorded. Mental Status None recorded. Family History Nothing Reported. Medical History No medical history recorded. Gynecological HistoryNo gynecological history recorded. Obstetrics History GPAL:G 0 P 0 0 0 0 Past Encounters Encounter ID Performer Location Encounter Start Date Encounter Closed Date Diagnosis/Indication Diagnosis SNOMED-CT Code Diagnosis ICD10 Code Diagnosis IMO Codes Diagnosis Note [id number] JOSE ROBERTO DUNCAN MD Main - [address] [id number] 11/08/2023 14:28:29 11/09/2023 10:52:40 Post-surgical wound care [id number] Z48.01 Health Concerns Section Related Observation LastModified by Organization Detai ls LastModified Time None Recorded Concern Status LastModified by Organization Details LastModified Time None Recorded Advance Directives Directive None Recorded Payers Insurance Date Sequence Insurance Name Policy Number Policy Lane Covered Member ID Lane Member ID Guarantor Name 05/12/2024 1 [facility] - DOS ON OR AFTER 2023 - DUAL ELIGIBLE - LONG TERM OPTIONS AND ONE CARE (MEDICARE REPLACEMENT/ADV ANTAGE - HMO) Shama Amy [id number] Shama Reyes Notes Date Note Type Note [...] .................. .................. .................. .................. .................. .................. ............... Internet Designer Note From Willy Mac: Pt reports that [...] from blister area. Pt reports that it hadn t been worse since the ED. c was called pt advice of warning flag of infection to call back and red flags discussed and cleared. .................. .................. .................. .................. .................. .................. .................. ............... Disposition: Fulfilled JOSE ROBRETO DUNCAN MD [address] [facility],[address], [place], [address], [employer] 11/08/2023 14:47:14 OBGyn Episode No OBEpisode recorded.
== END 2025-08-06 11:37 | disposition home or self-care (01) ==
LOC: HO.ENCR 10:37
PROVIDERS: PCP Internal Medicine; Visit Provider Registered Nurse Diabetes Educator
DX: E11.65 Type 2 diabetes mellitus with hyperglycemia (principal); Z79.4 Long term (current) use of insulin

== ENCOUNTER → 2025-08-06 10:36 | Outpatient (BNVA) | payer OTHER, SELFPAY | PROVIDERS: PCP Internal Medicine; Visit Provider Registered Nurse Diabetes Educator | DX: E11.65 Type 2 diabetes mellitus with hyperglycemia (principal); Z79.4 Long term (current) use of insulin | CPT/HCPCS: 99211 ==

== ENCOUNTER → 2025-08-31 12:52 | Outpatient (REF) | payer OTHER, SELFPAY ==
--- OUTSIDE RECORDS SUMMARY | 2024-04-10 08:00 | XMS_ITS ---
Author Organization [facility] Address [address] [facility] [place] [address] Care Team Providers Care Epidemiology Investigator Name Role Phone Bruce ANDREW, Anel Irene Primary Care Provider Un available Sheela Day Unavailable [phone] Jun Goss Unavailable Unavailable REASON FOR VISIT DR HOLLIS Encounters Encounter Location Date Provider Diagnosis [address] [address] 04/10/2024 Sheela Day Plan Of Treatment No Information Progress Notes * Shama ANAND ADOB:1965 (60 yo F)Acc No.[id number]:04/10/2024 Progress Note Patient: Shama ARTEAGA Provider: Shukri Day DPM :1965 A ge:58 Y S ex:Female Date:04/10/2024 Address:[address] [place], [place] [id number] Pcp:Suman Alas Subjective: * Chief Complaints: * [...] 04/10/2024 Generated for Printi ng/Faxing/eTransmitting on: 1 10/31/2024 01:12 PM EST
--- OUTSIDE RECORDS SUMMARY | 2024-04-17 05:00 | XMS_ITS ---
Author Organization [facility] Address [address] [facility] [place] [address] Care Team Providers Care Loss Prevention Officer Name Role Phone Bruce ANDREW, Anel Irene Primary Care Provider Un available Sheela Day Unavailable [phone] Jun Goss Unavailable Unavailable Encounters Encounter Location Date Provider Diagnosis [address] [address] 04/17/2024 Sheela Day Plan Of Treatment No Information Progress Notes * Shama ANAND ADOB:1965 (60 yo F)Acc No.[id number]:04/17/2024 Progress Note Patient: Shama ARTEAGA Provider: Shukri Day DPM :1965 A ge:58 Y S ex:Female Date:04/17/2024 Address:[address] [place], [place] [phone] Pcp:Suman Alas Subjective: * Chief Complaints: * [...] 0 04/17/2024 Generated for Madinai teri/Ricardo/eTransmitting on: 10/31/2024 01:13 PM EST
--- OUTSIDE RECORDS SUMMARY | 2024-08-07 09:30 | XMS_ITS ---
Author Organization [facility] Address [address] [facility] [place] [address] Care Team Providers Care Hedis Nurse Name Role Phone Bruce ANDREW, Anel Irene Primary Care Provider Un available Sheela Day Unavailable [phone] Jun Goss Unavailable Unavailable Encounters Encounter Location Date Provider Diagnosis [address] [address] 08/07/2024 Sheela Day Plan Of Treatment No Information Progress Notes * Shama ANAND ADOB:1965 (60 yo F)Acc No.[id number]:08/07/2024 Progress Note Patient: Shama ARTEAGA Provider: Shukri Day DPM :1965 A ge:59 Y S ex:Female Date:08/07/2024 Address:[address] [place], [place] [id number] Pcp:Suman Alas Subjective: * Chief Complaints: * * Medical History: Objective: * Vitals: Assessment: Plan: * Treatment: * Images: * The named appointment provid er may or may not be the originator of this progress note, and it is not deemed complete until electronically signed by the appointment provider. Sign off status: Pending * Provider: Shukri Day DPM Date: Generated for Madinai teri/Ricardo/eTransmitting on: 10/31/2024 01:13 PM EST
--- OUTSIDE RECORDS SUMMARY | 2024-09-04 08:00 | XMS_ITS ---
Author Organization [facility] Address [address] [facility] [place] [address] Care Team Providers Care Hand Patcher Name Role Phone Bruce ANDREW, Anel Irene Primary Care Provider Un available Sheela Day Unavailable [phone] Jun Goss Unavailable Unavailable Encounters Encounter Location Date Provider Diagnosis [address] [address] 09/04/2024 Sheela Day Plan Of Treatment No Information Progress Notes * Shama ANAND ADOB:1965 (60 yo F)Acc No.[id number]:09/04/2024 Progress Note Patient: Shama ARTEAGA Provider: Shukri Day DPM :1965 A ge:59 Y S ex:Female Date:09/04/2024 Address:[address] [place], [place] [phone] Pcp:Suman Alas Subjective: * Chief Complaints: * [...] Date: 11/04/2023 Generated for Madinai teri/Ricardo/eTransmitting on: 10/31/2024 01:13 PM EST
--- NOTE | 2025-08-31 12:55 | CA_ITS ---
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 The calculated ejection fraction is 41% by biplane method. - Evidence suggests grade III (severe) diastolic dysfunction. - The basal inferior and basal inferolateral segments are akinetic. - No obvious valvular pathology seen on this study. Findings Procedure Information Contrast agent, definity, is being given per protocol without apparent complications. Left Ventricle Mildly increased left ventricular cavity size. There is normal left ventricular wall thickness. The left ventricular systolic function is mild to moderately decreased. The calculated ejection fraction is 41% by biplane method. There is evidence of regional wall motion abnormalities. Evidence suggests grade III (severe) diastolic dysfunction. Wall Motion Rest Echo Findings The basal inferior and basal inferolateral segments are akinetic. Right Ventricle Normal right ventricular cavity size. There is mildly decreased right ventricular systolic function. Atria The left atrium is mildly dilated. Aortic Valve There is moderate calcification of the aortic valve. There is no aortic valve stenosis. There is no aortic valve regurgitation. Mitral Valve There is mild mitral annular calcification. There is trace mitral valve regurgitation. There is no mitral valve stenosis. Pulmonic Valve The pulmonic valve is likely normal. Tricuspid Valve There is no tricuspid valve regurgitation. Tricuspid regurgitation envelope is inadequate for calculation of right ventricular systolic pressure. Great Vessels The asc aorta is normal in size. Venous The inferior vena cava is normal in size and collapses greater than 50% with inspiration. Pericardium/Pleural There is no evidence of pericardial effusion. Prior Study Comparison Changes noted compared to prior study dated: 03/10/2024. Decrease in LVEF; see comment on wall motion. Recommendations, Care & Conclusions No obvious valvular pathology seen on this study. Measurements 2D Linear Measurements IVSd: 0.91 0.6-0.9/0.6-1.0 cm LVIDd: 5.49 3.9-5.3/4.2-5.9 cm LVIDd Index: 3.27 2.4-3.2/2.2-3.1 cm/m2 LVIDs: 4.41 2.0-3.6 cm LVPWd: 0.87 0.7-1.1 cm LA Diam: 4.30 2.7-3.8/3.0-4.0 cm LAIDs Index: 2.56 1.5-2.3 cm/m2 LV Mass: 227.03 67-162/88-224 g LV Mass Index: 135.14 43-95/49-115 g/m2 LVOT Diam: 2.20 3.0+(-)1.3 cm 2D Systolic Function EF 4C: 38.40 >55% EF 2C: 44.30 >55% EF BiP: 40.90 >55% Mitral Valve MV VTI: 0.38 MV Pk Kulwant: 1.25 MV Mn Kulwant: 0.54 MV Pk Grad: 6.00 MV Mn Grad: 2.00 MV Pk E: 0.99 MV PK A: 0.48 MV Decel Time: 299.00 E/A: 2.10 E'Lateral: 3.37 E'Medial: 2.94 E/E' Med: 33.80 E/E' Lat: 29.50 PHT: 88.00 MVA PHT: 2.50 MVA Continuity: 1.74 Decel [place]: 3.32 Aortic Valve AoV Pk Kulwant: 1.43 AoV Mn Kulwant: 1.02 AoV VTI: 0.38 AoV Pk Grad: 8.00 Aov Mn Grad: 5.00 NED Cont.VTI: 1.71 LVOT LVOT Pk Kulwant: 0.68 LVOT Mn Kulwant: 0.42 LVOT VTI: 0.17 LVOT Pk Grad: 2.00 LVOT Mn Grad: 1.00 LVOT Diam: 2.20 LVOT Area: 3.80 Diastolic Function MV Pk E: 0.99 MV Pk A: 0.48 E/A: 2.10 E'Medial: 2.94 E/E' Med: 33.80 E' Laterial: 3.37 E/E' Lat: 29.50 Right Ventricle TAPSE (mm): 16.20 TVS' Kulwant: 9.11 Tricuspid Valve RA Press: 3.00 Great Vessels Aorta Sinus of Valsalva: 2.88 2.0-3.[address] [place]: 2.41 1.7-3.4 cm Ao Asc: 3.40 2.1-3.4 cm Updated in Other Vendor System with Status of Final Tomasz Jones MD electronically signed on 09/01/2025 1:10:02 PM with status of Final
--- OUTSIDE RECORDS SUMMARY | 2025-08-31 13:13 | XMS_ITS | Clinical Summary ---
Author Organization [facility] Address [address] [place] [address] Phone Care Team Providers Care Marine Equipment Engineer Name Role Phone Anel Barrera MD Primary [...] Problem Noted Date Diagnosed Date Cerebrovascular accident ([facility] V24, [facility] V 28) 05/17/2025 Polysubstance abuse ([facility] [place], [facility] V28) 0 01/23/2021 Overview (09/29/2024): Using IV [...] Overdose of opiate or relate d narcotic ([facility] [place], [facility] V[facility]) 04/06/2018 Overview (09/29/2024): 04/06/2018 Microalbuminuria 03/15/2018 Bipolar 1 disorder ([facility] [place], [facility] V28) Carpal tunnel syndrome 02/25/2018 Overview (09/29/2024): S/p release 2014 Hyperlipidemia associated wi th type 2 diabetes mellitus ([facility] [place], [facility] V28) 02/25/2018 Diabetic peripheral neuropathy ([facility] V[facility], [facility] V28) 02/25/2018 Diabetes mellitus type 2 wit h neurological manifestations ([facility], [facility] V28) 11/07/2014 Nuclear sclerosis 10/30/2014 Overview (09/29/2024): Dr Kaur note 01-24-2009 Shoulder impingement syndrome 10/30/2014 Overview (09/29/2024): Tammy Singer note 02-19-2014 HTN (hypertension), benign 02/19/2009 Necrobiosis lipoidica diabet icorum ([facility] V24, [facility] V28) 02/01/2009 Posttraumatic stress disorder 07/16/2006 Type 2 diabetes mellitus ([facility] V24, [facility] V 28) 10/01/2005 Immunizations Immunization Administration Dates Next Due Hepatitis [...] HERNIA REPAIR/ING OTHER SURGICAL HISTORY 04/2009 PROCEDURE: [place] LAPS GASTRIC RESTRICTIVE PROCEDURE PLACE DEVICE; COMMENT: [facility] Dr Briscoe 224lbs starting wt HAND SURGERY PROCEDURE: HISTORICAL HAND SURGERY; COMMENT: Bilateral carpal tunnel release HERNIA REPAIR PROCEDURE: HISTORICAL HERNIA REPAIR/ING SECTION PROCEDURE: HISTORICAL ; COMMENT: x 2 BREAST REDUCTION 1980 Bilateral PROCEDURE: [place] BREAST REDUCTION COLONOSCOPY 07/02/2021 PROCEDURE: HISTORICAL COLONOSCOPY; COMMENT: polyp Medical History Medical History Date Comments Bipolar 1 disorder ([facility] V24, [facility] V28) 02/25/2018 DX:Bipolar 1 disorder (HCC) Diabetes mellitus type 2 wit h neurological manifestations ([facility], [facility] V[facility]) 11/07/2014 DX:Diabetes mellitus type 2 with neurological manifestations (HCC) Diabetic peripheral neuropat hy ([facility], [facility] V28) 02/25/2018 DX:Diabetic peripheral neur opathy (HCC) Type 2 diabetes mellitus wit h diabetic retinopathy ([facility], [facility] V[facility]) 10/01/2005 DX:Type 2 diabe noel mellitus with diabetic retinopathy (HCC) HTN (hypertension), benign 02/19/2009 DX:HT N (hypertension), benign Hyperlipidemia associated wi th type 2 diabetes mellitus ([facility] V24, [facility] V28) 02/25/2018 DX:Hyperlipidemia associated with type 2 diabetes mellitus (HCC) Necrobiosis lipoidica diabet icorum ([facility] V24, [facility] V28) 02/01/2009 DX:Necrobiosis lipoidica diabeticorum (HCC) Nuclear sclerosis 10/30/2014 DX:Nuclear scl erosis; COMMENT: Dr Kaur note 01-24-2009 Posttraumatic stress disorder 07/16/2006 DX :Posttraumatic stress disorder Shoulder impingement syndrome 10/30/2014 DX :Shoulder impingement syndrome; COMMENT: Tammy Singer note 02-19-2014 Tobacco abuse 03/14/2018 DX:Tobacco abuse Carpal tunnel syndrome 02/25/2018 DX:Carpal tunnel syndrome; COMMENT: S/p release 2014 Type 2 diabetes with nephrop athy ([facility], [facility] V[facility]) 03/15/2018 DX:Type 2 diabetes with nep hropathy (HCC) Microalbuminuria 03/15/2018 DX:Microalbumin uria Overdose of opiate or relate d narcotic ([facility], [facility] V[facility]) 04/06/2018 DX:Overdose of opiate or re lated narcotic ([facility]); COMMENT: 04/06/2018 Positive urine drug screen 09/05/2018 [...] Anemia of chronic disease 09/07/2018 Cerebrovascular accident ([facility] S/HCC V24, CMS/HCC V28) 05/17/2025 Family History Medical History Relation [...] Used Date Smoking Tobacco: Former Cigarettes 0.5 49.4 S tarted: 1976 Smokeless Tobacco: Never Alcohol [...] 1975 Diabetes: Annual Retina Eye Exam 1975 RSV Immunization Adult Patients (1 - Risk 50-74 years 1-dose series) 2015 Medicare Annual Wellness Visit 09/19/2022 Diabetes: Annual Urine Albumin-Creatinine Ratio (uACR) 09/25/2022 08/05/2021 Diabetes: Blood Sugar Control Test (HGBA1C) 09/25/2022 09/22/2021 Breast Cancer Screening 05/01/2023 05/01/2021, 01/17 Zoster Vaccines (2 of 2) 11/24/2023 09/29/2023 Cervical Cancer Screening: HPV 01/18/2024 01/17/2019 COVID-19 Vaccine ( season) 2025 09/29/2023, 08/20/2022, [...] Procedure Name Priority Date/Time Associated Diagnosis Comments BASIC METABOLIC PANEL Routine 05/23/2025 12:22 PM EDT HEMOGLOBIN A1C Routine 09/22/2021 HM URINE ALBUMIN CREATININE RATIO Routine 08/05/2021 LIPID PANEL Routine 08/05/2021 HM COLONOSCOPY Routine 07/02/2021 SCREENING MAMMOGRAPHY BI 2-VIEW BREAST INC CAD Routine 05/01/2021 4:43 PM EDT Encounter for immunization Type 2 diabetes mellitus with mild nonproliferative diabetic retinopathy without macular edema, bilateral (CMS/HCC V24, CMS/HCC V28) exterminator helper termite (current) use of insulin ([facility]/HCC V24, [facility] V28) HPV Routine 01/17/2019 HEPATITIS C SCREENING Routine 09/09/2018 HIV SCREENING Routine 03/22/2006 from Last 3 Months or Most Recently Relevant to Health Maintenance Results * (ABNORMAL) Basic metabolic panel (05/23/2025 12:22 PM EDT) Sodium 135 133 - 145 mmol/L LAB CHEMISTRY METHOD 05/23/2025 1:59 PM [facility] Potassium 4.3 3.5 - 5.5 mmol/L LAB CHEMISTRY METHOD 05/23/2025 1:59 PM [facility] Chloride 107 96 - 110 mmol/L LAB CHEMISTRY METHOD 05/23/2025 1:59 PM [facility] CO2 21 21 - 32 mmol/L LAB CHEMISTRY METHOD 05/23/2025 1:59 PM [facility] Anion Gap 7 3 - 11 LAB CHEMISTRY METHOD 05/23/2025 1:59 PM [facility] Glucose 225(H) 70 - 100 mg/dL LAB CHEMISTRY METHOD 05/23/2025 1:59 PM [facility] BUN 23 5 - 25 mg/dL LAB CHEMISTRY METHOD 05/23/2025 1:59 PM [facility] Creatinine 1.35(H) 0.50 - 1.10 mg/dL LAB CHEMISTRY METHOD 05/23/2025 1:59 PM [facility] eGFR 45(L) >=60 mL/min/1. 73m2 LAB CHEMISTRY METHOD 05/23/2025 1:59 PM [facility] Comment:Calculation based on [...] R esult [facility] [address] [place] [address], [place] [phone] * (ABNORMAL) Hemoglobin A1c (09/22/2021) [facility] Hemoglobin A1C 7.2(A) <=6.5 % Blood Venous blood specimen / Unknown Result [facility] Historical Provider LAB BLOOD ORDERABLES Stephie l Result * Urine Albumin Creatinine Ratio (08/05/2021) [facility] Urine Albumin Creatinine Ratio Abstracted Result [facility] Historical Provider HEALTH MAINTENANCE Final Result * Lipid panel (08/05/2021) [facility] LDL/HDL Ratio 2 0 - 4 Triglycerides 115 0 - 150 mg/dL Cholesterol 154 0 - 200 mg/dL HDL 67 >=40 mg/dL LDL Cholesterol 64 0 - 100 mg/dL Blood Venous blood specimen / Unknown Result [facility] Historical Provider LAB BLOOD ORDERABLES Stephie l Result * Colonoscopy (07/02/2021) Pathologist [facility] Colonoscopy No interpreta tion,abstr acted Anatomical Region Laterality Modality Other Historical Provider HEALTH MAINTENANCE Final Result * SCREENING [...] cancer risk category Moderate (15% - 20%) Edith Wong MD IMG XR PROCEDURES Final Resu lt * Cervical Cancer Screening: HPV (01/17/2019) Pathologist [facility] Cervical Cancer Screening: HPV Negative Abstracted Historical Provider [facility] MAINTENANCE Final Result * Hepatitis C Screening (09/09/2018) Pathologist [facility] Hepatitis C Screening Abstracted us Historical Provider HEALTH MAINTENANCE Final Result * HIV Screening (03/22/2006) HIV Screening Abstracted Historical Provider HEALTH MAINTENANCE Final Result from Last 3 Months or Most Recently Relevant to Health Maintenance Insurance [facility] MEDICARE Member Subscriber Plan / Payer (Ef fective 2022-Present) Name:RASHAWNSHAMA THOMPSON Relation to Subscriber:Self Name:AmyShamaLeydi Payer ID:[id number] Group ID:[id number] Type:Not on file Address: [place] [address] [place] [phone] Advance Directives Documents on File Type Date Recorded Patient Sensitizer Expl anation Advance Directives and Living Will [...] currently active code status orders. Care Teams Marine Equipment Engineer Relationship Specialty Start Date End Date Anel Barrera MD [address] [place] [address] PCP - General Internal Medicine 05/18/25
--- OUTSIDE RECORDS SUMMARY | 2025-08-31 13:13 | XMS_ITS | Data Portability ---
Author Organization [facility], [facility] Address [address] [place] [phone] Care Team Providers Care Lap Polisher Name Role Phone [facility] PRIMARY [facility] Referring Provider Assessment Encounter Date Assessment Date Assessment LastModified by Organization Details LastModified Time 11/08/2023 11/08/2023 As noted, we were called to see this patient regarding concerns of wound healing. Evaluation in the field was performed by my metal control worker colleague, as noted above, I provided real-time [...] temperature Respiratory rate Heart rate Oxygen saturation Systolic And Diastolic Provider Name and Address Organization Details Last Updated DateTime 4 97.1 [degF] 16 /min 72 /min 98 % 130/78 mm[Hg] Not Available [facility] [...] ICD10 Code Diagnosis IMO Codes Diagnosis Note [id number] JOSE ROBERTO DUNCAN MD Main - [address] [address] 11/08/2023 14:28:29 11/09/2023 10:52:40 Post-surgical wound care [id number] Z48.01 Health Concerns Section Related Observation LastModified by Organization Detai ls LastModified Time None Recorded Concern Status LastModified by Organization Details LastModified Time None Recorded Advance Directives Directive None Recorded Payers Insurance Date Sequence Insurance Name Policy Number Policy Lnae Covered Member ID Lane Member ID Guarantor Name 05/12/2024 1 [facility] - DOS ON OR AFTER 2023 - DUAL ELIGIBLE - SKILLED NURSING OPTIONS AND ONE CARE (MEDICARE REPLACEMENT/ADV ANTAGE - HMO) Shama Amy [id number] Shama Reyes Notes Date Note Type Note [...] .................. .................. .................. .................. .................. .................. ............... Silk Screen Painter Note From Bubba Willy: Pt reports that she suffered a fall [...] .................. ............... Disposition: Demi DUNCAN MD [address] [facility],[address], [place], [address], [employer] 11/08/2023 14:47:14 OBGyn Episode No OBEpisode recorded.
--- OUTSIDE RECORDS SUMMARY | 2025-08-31 13:13 | XMS_ITS | Clinical Summary ---
Author Organization [facility] 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
--- OUTSIDE RECORDS SUMMARY | 2025-08-31 13:13 | XMS_ITS | Patient Health Record ---
Author Organization [facility] Address [address] [place] [address] Care Team Providers Care Pin Maker Name Role Phone Bruce ANDREW, Anel Irene Primary Care Provider Un available Sheela Day Unavailable [phone] Jun Goss Unavailable Unavailable Allergies No Known [...] Polyneuropathy due to type 2 diabetes mellitus (138545561) Type 2 diabetes mellitus with diabetic polyneuropathy (E11.42) Active confirmed Problem Polyneuropathy due to diabetes mellitus type I (072457289) Type 1 diabetes mellitus with diabetic polyneuropathy (E10.42) Active confirmed Problem Bilateral atherosclerosis of arteries of lower limbs (disorder) (71937983226228034 ) Atherosclerosis of artery of both lower extremities (I70.203) Active confirmed Problem Polyneuropathy due to diabetes mellitus type I (284439717) Type 1 DM with polyneuropathy (E10.42) Active confirmed Problem Critical limb ischemia of right lower extremity (I70.221) Active confirmed Encounters Encounter Location Date Provider Diagnosis [address] [address] 09/04/2024 Sheela Day Plan Of Treatment No Information Insurance Providers Payer Name Payer Address Payer Phone Subscriber Number Group Number Insured Name Patient Relationship to Insured Coverage Start Date Coverage End Date [facility] [employer] Claims [address] [place] [address] [id number] Shama Reyes Self - patient is the [...]
== END ==
LOC: HO.CARD 12:52
PROVIDERS: PCP Internal Medicine; Visit Provider Internal Medicine
DX: I25.5 Ischemic cardiomyopathy (principal)
CPT/HCPCS: 93306; Q9957

== ENCOUNTER → 2025-08-31 12:55 | Outpatient (BNV) | payer OTHER, SELFPAY | PROVIDERS: PCP Internal Medicine; Visit Provider Internal Medicine | DX: I51.89 Other ill-defined heart diseases (principal) | CPT/HCPCS: 93306 ==

== ENCOUNTER 2025-09-04 06:31 | Outpatient (REF) | payer OTHER, SELFPAY ==
--- OUTSIDE RECORDS SUMMARY | 2025-09-04 06:36 | XMS_ITS | Encounter Summary ---
Author Organization [facility] Address [address] [place] [address] Care Team Providers Care Radiologic Technician Name Role Phone Community, Pcp Unavailable Unavailable Edith Wong MD Primary Care Provider Unavail able Monse Flores MD Primary Care Provider [phone] Encounter Details Date Type Department Care Team Description 01/24/2021 Refill Adult Medicine [address] [address] Katelyn Tracey PA-C [address] [place] [address] Social History Tobacco Use Types Packs/Day Years [...] on filedocumented in this encounter Care Teams Radiologic Technician Relationship Specialty Start Date End Date Edith Wong MD PCP - General Internal Medicine 08/29/19 09/11/21 Monse Flores MD [address] [place] [address] PCP - General Internal Medicine 09/12/21 [facility] Internal Medicine 11/23/17 documented as of this encounter
--- OUTSIDE RECORDS SUMMARY | 2025-09-04 06:36 | XMS_ITS | Encounter Summary ---
Author Organization [facility] Address [address] [place] [address] Care Team Providers Care Pot Fireman Name Role Phone Berta Denson MD Primary [...] able Monse Flores MD Primary Care Provider [phone] Encounter Details Date Type Department Care Team Description 2010 Release of Information Medical Records [address] [place] [id number] Abstract, Provider Social History Tobacco Use Types [...] on filedocumented in this encounter Care Teams Pot Fireman Relationship Specialty Start Date End Date Berta [...] Medicine 08/29/19 09/11/21 Monse Flores MD [address] [place] [address] PCP - General Internal Medicine 09/12/21 [facility] Internal Medicine 11/23/17 documented as of this encounter
--- OUTSIDE RECORDS SUMMARY | 2025-09-04 06:36 | XMS_ITS | Encounter Summary ---
Author Organization [facility] Address [address] [place] [address] Care Team Providers Care Data Modeling Specialist Name Role Phone Edith Wong MD Primary Care Provider Unavail able [facility], Pcp Unavailable Unavailable Khadar Armstrong MD Primary Care Provider Unavailab le Edith Wong MD Primary Care Provider Unavail able Lashell Villanueva MD Primary Care Provider Unav ailable Edith Wong MD Primary Care Provider Unavail able Monse Flores MD Primary Care Provider [phone] Reason for Visit * Reason Onset Date Comments Call From Hospital 04/06/2018 Encounter Details Date Type Department Care Team Description 04/06/2018 Telephone Adult [address] [address] Edith Wong MD Call From Hospital Social [...] 04/06/2018 10:45 AM EDT [facility], low BS, positive for opiates and buprenorphine. She will be admitted , [place] pat last opiates were in 2016 * Telephone Encounter - Liana Abdoulayejuannettieabby - 04/06/2018 10:[address] Marshall from [facility], [place], [place] calling and asking what medications the patient is taking. Dr. Marshall's no. [phone] documented in this encounter Plan of Treatment Not on file documented as of this encounter Visit Diagnoses Not on filedocumented in this encounter Care Teams Data Modeling Specialist Relationship Specialty Start Date End Date Edith Wong MD PCP - General Internal Medicine 11/23/17 10/16/18 Khadar Armstrong MD PCP - General Pediatrics 10/17/18 10/30/18 Edith Wong MD PCP - General Internal Medicine 10/31/18 03/28/19 Lashell Villanueva MD PCP - General Internal Medicine 03/29/19 9 Edith Wong MD PCP - General Internal Medicine 08/29/19 09/11/21 Monse Flores MD [address] [place] [address] PCP - General Internal Medicine 09/12/21 [facility] Internal Medicine 11/23/17 documented as of this encounter
--- OUTSIDE RECORDS SUMMARY | 2025-09-04 06:36 | XMS_ITS | Encounter Summary ---
Author Organization [facility] Address [address] [place] [address] Care Team Providers Care Construction Millwright Name Role Phone Community, Pcp Unavailable Unavailable Edith Wong MD Primary Care Provider Unavail able Lashell Villanueva MD Primary Care Provider Unav ailable Edith Wong MD Primary Care Provider Unavail able Monse Flores MD Primary Care Provider [phone] Encounter Details Date Type Department Care Team Description 12/06/2018 Care Analyst Report Medical Records [address] [place] [address] Ronan Sears PA-C [address] [place] [address] [address] [place] [address] Social History Tobacco Use Types Packs/Day Years [...] on filedocumented in this encounter Care Teams Construction Millwright Relationship Specialty Start Date End Date Edith Wong MD PCP - General Internal Medicine 10/31/18 03/28/19 Lashell Villanueva MD PCP - General Internal Medicine 03/29/19 9 Edith Wong MD PCP - General Internal Medicine 08/29/19 09/11/21 Monse Flores MD [address] [place] [address] PCP - General Internal Medicine 09/12/21 [facility] Internal Medicine 11/23/17 documented as of this encounter
--- OUTSIDE RECORDS SUMMARY | 2025-09-04 06:36 | XMS_ITS | Encounter Summary ---
Author Organization [facility] Address [address] [place] [address] Care Team Providers Care Music Worker Name Role Phone Berta Denson MD Primary [...] able Monse Flores MD Primary Care Provider [phone] Reason for Visit * Reason Comments other Encounter Details Date Type Department Care Team Description 01/06/2005 Telephone Adult Medicine [address] [address] Manuel Soni MD other Social History Tobacco [...] on filedocumented in this encounter Care Teams Music Worker Relationship Specialty Start Date End Date Berta [...] Medicine 08/29/19 09/11/21 Monse Flores MD [address] [place] [address] PCP - General Internal Medicine 09/12/21 [facility], Pcp Internal Medicine 11/23/17 documented as of this encounter
--- OUTSIDE RECORDS SUMMARY | 2025-09-04 06:36 | XMS_ITS | Encounter Summary ---
Author Organization [facility] Address [address] [place] [address] Care Team Providers Care Dealer Analyst Name Role Phone Community, Pcp Primary Care Provider Unavailabl Edith Friend MD Primary Care Provider Unavail able Community, Pcp Unavailable Unavailable Khadar Armstrong MD Primary Care Provider Unavailab le Edith Wong MD Primary Care Provider Unavail able Lashell Villanueva MD Primary Care Provider Unav ailable Edith Wong MD Primary Care Provider Unavail able Monse Flores MD Primary Care Provider [phone] Encounter Details Date Type Department Care Team Description 09/18/2016 Release of Information Medical Records [address] [place] [id number] Abstract, Provider Social History Tobacco Use Types [...] on filedocumented in this encounter Care Teams Dealer Analyst Relationship Specialty Start Date End Date Community, [...] Internal Medicine 08/29/19 09/11/21 Monse Flores MD [address] [place] [address] PCP - General Internal Medicine 09/12/21 [facility] Internal Medicine 11/23/17 documented as of this encounter
--- OUTSIDE RECORDS SUMMARY | 2025-09-04 06:36 | XMS_ITS | Encounter Summary ---
Author Organization [facility] Address [address] [place] [address] Care Team Providers Care Construction Field Engineer Name Role Phone Community, Pcp Unavailable Unavailable Edith Wong MD Primary Care Provider Unavail able Monse Flores MD Primary Care Provider [phone] Reason for Visit * Reason Onset Date Comments Mychart Rx Refill 03/28/2021 Encounter Details Date Type Department Care Team Description 03/28/2021 Refill Adult Medicine [address] [address] Edith Wong MD Mychart Rx Refill Social History Tobacco Use Types Packs/Day [...] have Coronavirus / COVID-19? No / Unsure 03/31/2021 8:50 AM EDT documented as of this encounter Plan of Treatment Not on file documented as of this encounter Visit Diagnoses Not on filedocumented in this encounter Care Teams Construction Field Engineer Relationship Specialty Start Date End Date Edith Wong MD PCP - General Internal Medicine 08/29/19 09/11/21 Monse Flores MD [address] [place] [address] PCP - General Internal Medicine 09/12/21 [facility], [facility] Internal Medicine 11/23/17 documented as of this encounter
--- OUTSIDE RECORDS SUMMARY | 2025-09-04 06:36 | XMS_ITS | Encounter Summary ---
Author Organization [facility] Address [address] [place] [address] Care Team Providers Care Cardiographer Name Role Phone Berta Denson MD Primary Care Provider Unavail able [facility], Pcp Primary Care Provider Unavailabl Edith Friend MD Primary Care Provider Unavail able [facility], Pcp Unavailable Unavailable Khadar Armstrong MD Primary Care Provider Unavailab le Edith Wong MD Primary Care Provider Unavail able Lashell Villanueva MD Primary Care Provider Unav ailable Edith Wong MD Primary Care Provider Unavail able Monse Flores MD Primary Care Provider [phone] Encounter Details Date Type Department Care Team Description 03/08/2012 Lifts And Cranes Inspector Report Medical Records [address] [place] [address] Rohit Quintanilla MD Social History Tobacco Use [...] on filedocumented in this encounter Care Teams Cardiographer Relationship Specialty Start Date End Date Berta [...] Medicine 08/29/19 09/11/21 Monse Flores MD [address] [place] [address] PCP - General Internal Medicine 09/12/21 [facility], [facility] Internal Medicine 11/23/17 documented as of this encounter
--- OUTSIDE RECORDS SUMMARY | 2025-09-04 06:36 | XMS_ITS | Encounter Summary ---
Author Organization [facility] Address [address] [place] [address] Care Team Providers Care Upper Leather Sorter Name Role Phone Sha Wong MD Primary Care Provider Unavail able [facility], Pcp Unavailable Unavailable Khadar Armstrong MD Primary Care Provider Unavailab le Sha Wong MD Primary Care Provider Unavail able Lashell Villanueva MD Primary Care Provider Unav ailable Sha Wong MD Primary Care Provider Unavail able Monse Flores MD Primary Care Provider [phone] Reason for Visit * Reason Onset Date Comments APPOINTMENT 09/14/2018 Encounter Details Date Type Department Care Team Description 09/14/2018 Telephone Adult Medicine [address] [address] Sha Wong MD APPOINTMENT Social History Tobacco [...] urgently with GI. I will send through [facility] for pain control. * Telephone Encounter - [...] take instead Also wanted to let dr luna know she is having eye surgery tomorrow [...] on filedocumented in this encounter Care Teams Upper Leather Sorter Relationship Specialty Start Date End Date Sha Wong MD PCP - General Internal Medicine 11/23/17 10/16/18 Khadar Armstrong MD PCP - General Pediatrics 10/17/18 10/30/18 Sha Wong MD PCP - General Internal Medicine 10/31/18 03/28/19 Lashell Villanueva MD PCP - General Internal Medicine 03/29/19 9 Sha Wong MD PCP - General Internal Medicine 08/29/19 09/11/21 Monse Flores MD [address] [place] [address] PCP - General Internal Medicine 09/12/21 [facility], [facility] Internal Medicine 11/23/17 documented as of this encounter
--- OUTSIDE RECORDS SUMMARY | 2025-09-04 06:36 | XMS_ITS | Clinical Summary ---
Author Organization [facility] 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
--- OUTSIDE RECORDS SUMMARY | 2025-09-04 06:36 | XMS_ITS | Encounter Summary ---
Author Organization [facility] Address [address] [place] [address] Care Team Providers Care Criminology Teacher Name Role Phone Berta Denson MD Primary [...] able Monse Flores MD Primary Care Provider [phone] Encounter Details Date Type Department Care Team Description 03/01/2013 Data Transcriber Report Medical Records [address] [place] [address] Georgette Briscoe MD [address] [place] [address] [place] [address] Social History Tobacco Use Types Packs/Day Years [...] on filedocumented in this encounter Care Teams Criminology Teacher Relationship Specialty Start Date End Date Berta [...] Internal Medicine 08/29/19 09/11/21 Monse Flores MD [address] [place] [address] PCP - General Internal Medicine 09/12/21 [facility], Pcp Internal Medicine 11/23/17 documented as of this encounter
--- OUTSIDE RECORDS SUMMARY | 2025-09-04 06:36 | XMS_ITS | Encounter Summary ---
Author Organization [facility] Address [address] [place] [address] Care Team Providers Care Flight Inspector Name Role Phone Edith Wong MD Primary Care Provider Unavail able [facility], Pcp Unavailable Unavailable Khadar Armstrong MD Primary Care Provider Unavailab le Edith Wong MD Primary Care Provider Unavail able Lashell Villanueva MD Primary Care Provider Unav ailable Edith Wong MD Primary Care Provider Unavail able Monse Flores MD Primary Care Provider [phone] Encounter Details Date Type Department Care Team Description 08/16/2018 Refill Adult Medicine [address] [address] Berta Denson MD Social History Tobacco Use Types Packs/Day [...] encounter Miscellaneous Notes * Telephone Encounter - Reshma Etienne M.A. - 08/16/2018 4:36 PM ESTFrom: Shama Reyes To: Berta Denson MD Sent: 08/16/2018 4:21 PM EST Subject: Medication Renewal Request Original authorizing provider: MD Shama Reese would like a refill of the following medications: glucose monitoring kit (FREESTYLE) monitoring kit [Berta Denson MD] Preferred pharmacy: [facility] [address] [place] [address] Comment: does [facility] cover the new freestyle carin? it is a 14 day patch that scans glucose level. Due to neuporthy can NOT finger stick Medication renewals requested in this message routed to other providers: VITAMIN E 800 UNIT OR CAPS [Lara Pacheco PA-C] documented in this encounter Plan of Treatment Not on file documented as of this encounter Visit Diagnoses Not on filedocumented in this encounter Care Teams Flight Inspector Relationship Specialty Start Date End Date Edith Wong MD PCP - General Internal Medicine 11/23/17 10/16/18 Khadar Armstrong MD PCP - General Pediatrics 10/17/18 10/30/18 Edith Wong MD PCP - General Internal Medicine 10/31/18 03/28/19 Lashell Villanueva MD PCP - General Internal Medicine 03/29/19 9 Edith Wong MD PCP - General Internal Medicine 08/29/19 09/11/21 Monse Flores MD [address] [place] [address] PCP - General Internal Medicine 09/12/21 [facility], [facility] Internal Medicine 11/23/17 documented as of this encounter
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
--- OUTSIDE RECORDS SUMMARY | 2025-09-04 06:36 | XMS_ITS | Encounter Summary ---
Author Organization [facility] Address [address] [place] [address] Care Team Providers Care Art Model Name Role Phone Berta Denson MD Primary [...] able Monse Flores MD Primary Care Provider [phone] Encounter Details Date Type Department Care Team Description 08/15/2012 Refill Dermatology [address] [place] [address] Lara Pacheco PAFransiscoC Social History Tobacco Use Types Packs/Day Years [...] encounter Miscellaneous Notes * Telephone Encounter - Murphy Pereyra - 08/15/2012 3:34 PM ESTFrom: SHAMA GODDARD Sent: WedAug 15, 2012 12:10 PM Subject: Medication Renewal Request Original authorizing provider: Lara Pacheco PA-C Shama Goddard would like a refill of the following medications: VITAMIN E 800 UNIT OR CAPS [Lara Pacheco PA-C] Preferred pharmacy: [facility] Comment: Medication renewals requested in this message routed to other providers: Insulin Pen Needle 32G X 6 MM MISC [Berta Denson MD] documented in this encounter Plan of Treatment Not on file documented as of this encounter Visit Diagnoses Not on filedocumented in this encounter Care Teams Art Model Relationship Specialty Start Date End Date Berta Denson MD PCP - General 12/17/04 01/14/16 [facility], Pcp PCP - General Internal Medicine 01/15/16 11/22/17 Edith Wong MD PCP - General Internal Medicine 11/23/17 10/16/18 Khadar Armstrong MD PCP - General Pediatrics 10/17/18 10/30/18 Edith Wong MD PCP - General Internal Medicine 10/31/18 03/28/19 Lashell Villanueva MD PCP - General Internal Medicine 03/29/19 9 Edith Wong MD PCP - General Internal Medicine 08/29/19 09/11/21 Monse Flores MD [address] [place] [address] PCP - General Internal Medicine 09/12/21 [facility], Pcp Internal Medicine 11/23/17 documented as of this encounter
--- OUTSIDE RECORDS SUMMARY | 2025-09-04 06:36 | XMS_ITS | Encounter Summary ---
Author Organization [facility] Address [address] [place] [address] Care Team Providers Care Field Liability Generalist Name Role Phone [facility], Pcp Unavailable Unavailable Edith Wong MD Primary Care Provider Unavail able Lashell Villanueva MD Primary Care Provider Unav ailable Edith Wong MD Primary Care Provider Unavail able Monse Flores MD Primary Care Provider [phone] Encounter Details Date Type Department Care Team Description 11/01/2018 Telephone Adult [address] [address] Edith Wong MD Social History Tobacco Use [...] on filedocumented in this encounter Care Teams Field Liability Generalist Relationship Specialty Start Date End Date Edith Wong MD PCP - General Internal Medicine 10/31/18 03/28/19 Lashell Villanueva MD PCP - General Internal Medicine 03/29/19 9 Edith Wong MD PCP - General Internal Medicine 08/29/19 09/11/21 Monse Flores MD [address] [place] [address] PCP - General Internal Medicine 09/12/21 [facility] Internal Medicine 11/23/17 documented as of this encounter
--- OUTSIDE RECORDS SUMMARY | 2025-09-04 06:36 | XMS_ITS | Encounter Summary ---
Author Organization [facility] Address [address] [place] [address] Care Team Providers Care Manufacturing Software Engineer Name Role Phone [facility], Pcp Unavailable Unavailable Edith Wong MD Primary Care Provider Unavail able Lashell Villanueva MD Primary Care Provider Unav ailable Edith Wong MD Primary Care Provider Unavail able Monse Flores MD Primary Care Provider [phone] Encounter Details Date Type Department Care Team Description 11/23/2018 Release of Information Medical Records [address] [place] [address] Abstract, Provider Social History Tobacco Use Types [...] filedocumented in this encounter Care Teams Manufacturing Software Engineer Relationship Specialty Start Date End Date Edith Wong MD PCP - General Internal Medicine 10/31/18 03/28/19 Lashell Villanueva MD PCP - General Internal Medicine 03/29/19 9 Edith Wong MD PCP - General Internal Medicine 08/29/19 09/11/21 Monse Flores MD [address] [place] [address] PCP - General Internal Medicine 09/12/21 [facility], Pcp Internal Medicine 11/23/17 documented as of this encounter
--- OUTSIDE RECORDS SUMMARY | 2025-09-04 06:36 | XMS_ITS | Encounter Summary ---
Author Organization [facility] Address [address] [place] [address] Care Team Providers Care Production Crew Supervisor Name Role Phone Edith Wong MD Primary Care Provider Unavail able [facility], Pcp Unavailable Unavailable Khadar Armstrong MD Primary Care Provider Unavailab le Edith Wong MD Primary Care Provider Unavail able Lashell Villanueva MD Primary Care Provider Unav ailable Edith Wong MD Primary Care Provider Unavail able Monse Flores MD Primary Care Provider [phone] Encounter Details Date Type Department Care Team Description 09/28/2018 Orders Only Gastroenterology - [address] [address] Alexander Clark MD Social History Tobacco Use Types Packs/Day [...] on filedocumented in this encounter Care Teams Production Crew Supervisor Relationship Specialty Start Date End Date Edith Wong MD PCP - General Internal Medicine 11/23/17 10/16/18 Khadar Armstrong MD PCP - General Pediatrics 10/17/18 10/30/18 Edith Wong MD PCP - General Internal Medicine 10/31/18 03/28/19 Lashell Villanueva MD PCP - General Internal Medicine 03/29/19 9 Edith Wong MD PCP - General Internal Medicine 08/29/19 09/11/21 Mosne Flores MD [address] [place] [address] PCP - General Internal Medicine 09/12/21 [facility], [facility] Internal Medicine 11/23/17 documented as of this encounter
--- OUTSIDE RECORDS SUMMARY | 2025-09-04 06:36 | XMS_ITS | Encounter Summary ---
Author Organization [facility] Address [address] [place] [address] Care Team Providers Care Game Programer Name Role Phone Berta Denson MD Primary Care Provider Unavail able [facility], Pcp Primary Care Provider Unavailabl Edith Friend MD Primary Care Provider Unavail able [facility], Pcp Unavailable Unavailable Khadar Armstrong MD Primary Care Provider Unavailab le Edith Wong MD Primary Care Provider Unavail able Lashell Villanueva MD Primary Care Provider Unav ailable Edith Wong MD Primary Care Provider Unavail able Monse Flores MD Primary Care Provider [phone] Encounter Details Date Type Department Care Team Description 08/14/2011 Eye Code Official Report Medical Records [address] [place] [address] Social History Tobacco Use Types Packs/Day Years [...] on filedocumented in this encounter Care Teams Game Programer Relationship Specialty Start Date End Date Berta Denson MD PCP - General 12/17/04 01/14/16 [facility], Pcp PCP - General Internal Medicine 01/15/16 11/22/17 Edith Wong MD PCP - General Internal Medicine 11/23/17 10/16/18 Khadar Armstrong MD PCP - General Pediatrics 10/17/18 10/30/18 Edith Wong MD PCP - General Internal Medicine 10/31/18 03/28/19 Lashell Villanueva MD PCP - General Internal Medicine 03/29/19 9 Edith Wong MD PCP - General Internal Medicine 08/29/19 09/11/21 Monse Flores MD [address] [place] [address] PCP - General Internal Medicine 09/12/21 [facility] Internal Medicine 11/23/17 documented as of this encounter
--- OUTSIDE RECORDS SUMMARY | 2025-09-04 06:36 | XMS_ITS | Encounter Summary ---
Author Organization [facility] Address [address] [place] [address] Care Team Providers Care Vp Packaging Name Role Phone Edith Wong MD Primary Care Provider Unavail able [facility], Pcp Unavailable Unavailable Khadar Armstrong MD Primary Care Provider Unavailab le Edith Wong MD Primary Care Provider Unavail able Lashell Villanueva MD Primary Care Provider Unav ailable Edith Wong MD Primary Care Provider Unavail able Monse Flores MD Primary Care Provider [phone] Reason for Visit * Reason Onset Date Comments Abnormal Test Results 09/09/2018 Encounter Details Date Type Department Care Team Description 09/09/2018 Telephone Adult Medicine [address] [address] Edith Wong MD Abnormal Test Results Social [...] on filedocumented in this encounter Care Teams Vp Packaging Relationship Specialty Start Date End Date Edith Wong MD PCP - General Internal Medicine 11/23/17 10/16/18 Khadar Armstrong MD PCP - General Pediatrics 10/17/18 10/30/18 Edith Wong MD PCP - General Internal Medicine 10/31/18 03/28/19 Lashell Villanueva MD PCP - General Internal Medicine 03/29/19 9 Edith Wong MD PCP - General Internal Medicine 08/29/19 09/11/21 Monse Flores MD [address] [place] [address] PCP - General Internal Medicine 09/12/21 [facility] 11/23/17 documented as of this encounter
--- OUTSIDE RECORDS SUMMARY | 2025-09-04 06:36 | XMS_ITS | Encounter Summary ---
Author Organization [facility] Address [address] [place] [address] Care Team Providers Care Field Project Manager Name Role Phone Berta Denson MD Primary [...] able Monse Flores MD Primary Care Provider [phone] Encounter Details Date Type Department Care Team Description 10/29/2010 Release of Information Medical Records [address] [place] [address] Abstract, Provider Social History Tobacco Use Types [...] filedocumented in this encounter Care Teams Field Project Manager Relationship Specialty Start Date End Date Berta [...] Medicine 08/29/19 09/11/21 Monse Flores MD [address] [place] [address] PCP - General Internal Medicine 09/12/21 [facility] Internal Medicine 11/23/17 documented as of this encounter
--- OUTSIDE RECORDS SUMMARY | 2025-09-04 06:36 | XMS_ITS | Data Portability ---
Author Organization [facility], [facility] Address [address] [place] [id number] Care Team Providers Care Information Delivery Analyst Name Role Phone [facility] Referring Provider [phone] Assessment Encounter Date Assessment Date Assessment LastModified by Organization Details LastModified Time 11/08/2023 11/08/2023 As noted, we were called to see this patient regarding concerns of wound healing. Evaluation in the field was performed by my dry room attendant colleague, as noted above, I provided real-time [...] ICD10 Code Diagnosis IMO Codes Diagnosis Note [id number] JOSE ROBERTO DUNCAN MD Main - [address] [address] 11/08/2023 14:28:29 11/09/2023 10:52:40 Post-surgical wound care [id number] Z48.01 Health Concerns Section Related Observation LastModified by Organization Detai ls LastModified Time None Recorded Concern Status LastModified by Organization Details LastModified Time None Recorded Advance Directives Directive None Recorded Payers Insurance Date Sequence Insurance Name Policy Number Policy Lane Covered Member ID Lane Member ID Guarantor Name 05/12/2024 1 [facility] - DOS ON OR AFTER 2023 - DUAL ELIGIBLE - FDC OPTIONS AND ONE CARE (MEDICARE REPLACEMENT/ADV ANTAGE - HMO) Shama Amy [id number] Shama Reyes Notes Date Note Type Note [...] .................. .................. .................. .................. .................. .................. ............... Development And Planning Engineer Note From Bubba Willy: Pt reports that [...] .................. ............... Disposition: Demi DUNCAN MD [address] [facility],[address], [place], [address], [employer] 11/08/2023 14:47:14 OBGyn Episode No OBEpisode recorded.
--- OUTSIDE RECORDS SUMMARY | 2025-09-04 06:36 | XMS_ITS | Encounter Summary ---
Author Organization [facility] Address [address] [place] [address] Care Team Providers Care Plasterer Tender Name Role Phone Edith Wong MD Primary Care Provider Unavail able [facility], Pcp Unavailable Unavailable Khadar Armstrong MD Primary Care Provider Unavailab le Edith Wong MD Primary Care Provider Unavail able Lashell Villanueva MD Primary Care Provider Unav ailable Edith Wong MD Primary Care Provider Unavail able Monse Flores MD Primary Care Provider [phone] Encounter Details Date Type Department Care Team Description 08/06/2018 [facility] Medical Records [address] [place] [address] Social History Tobacco Use Types Packs/Day Years [...] on filedocumented in this encounter Care Teams Plasterer Tender Relationship Specialty Start Date End Date Edith Wong MD PCP - General Internal Medicine 11/23/17 10/16/18 Khadar Armstrong MD PCP - General Pediatrics 10/17/18 10/30/18 Edith Wong MD PCP - General Internal Medicine 10/31/18 03/28/19 Lashell Villanueva MD PCP - General Internal Medicine 03/29/19 9 Edith Wong MD PCP - General Internal Medicine 08/29/19 09/11/21 Monse Flores MD [address] [place] [address] PCP - General Internal Medicine 09/12/21 [facility], [facility] Internal Medicine 11/23/17 documented as of this encounter
--- OUTSIDE RECORDS SUMMARY | 2025-09-04 06:37 | XMS_ITS | Encounter Summary ---
Author Organization [facility] Address [address] [place] [address] Care Team Providers Care Manager Dental Name Role Phone [facility], Pcp Unavailable Unavailable Edith Wong MD Primary Care Provider Unavail able Monse Flores MD Primary Care Provider [phone] Encounter Details Date Type Department Care Team Description 05/06/2021 CGM Report Medical Records [address] [place] [address] Abstract, Provider Social History Tobacco Use Types [...] have Coronavirus / COVID-19? No / Unsure 05/06/2021 2:53 PM EDT documented as of this encounter Plan of Treatment Not on file documented as of this encounter Visit Diagnoses Not on filedocumented in this encounter Care Teams Manager Dental Relationship Specialty Start Date End Date Edith Wong MD PCP - General Internal Medicine 08/29/19 09/11/21 Monse Flores MD [address] [place] [address] PCP - General Internal Medicine 09/12/21 [facility], Pcp Internal Medicine 11/23/17 documented as of this encounter
--- OUTSIDE RECORDS SUMMARY | 2025-09-04 06:37 | XMS_ITS | Encounter Summary ---
Author Organization [facility] Address [address] [place] [address] Care Team Providers Care Adult Services Librarian Name Role Phone Community, Pcp Unavailable Unavailable Edith Wong MD Primary Care Provider Unavail able Monse Flores MD Primary Care Provider Encounter Details Date Type Department Care Team Description 11/24/2019 Release of Information Medical Records [address] [place] [id number] Abstract, Provider Social History Tobacco Use Types [...] on filedocumented in this encounter Care Teams Adult Services Librarian Relationship Specialty Start Date End Date Edith Wong MD PCP - General Internal Medicine 08/29/19 09/11/21 Monse Flores MD [address] [place] [address] [id number] PCP - General Internal Medicine 09/12/21 [facility], [facility] Internal Medicine 11/23/17 documented as of this encounter
--- OUTSIDE RECORDS SUMMARY | 2025-09-04 06:37 | XMS_ITS | Encounter Summary ---
Author Organization [facility] Address [address] [place] [address] Care Team Providers Care Tanning Drum Operator Name Role Phone Community, Pcp Unavailable Unavailable Edith Wong MD Primary Care Provider Unavail able Monse Flores MD Primary Care Provider [phone] Reason for Visit * Reason Onset Date Comments Prior Authorization 06/17/2021 carin 14 day sensor Encounter Details Date Type Department Care Team Description 06/17/2021 Telephone Respiratory and Diabetes Medicaid/ACO Pharmacist [address] [place] [address] Katelyn Tracey PA-C [address] [place] [id number] Prior Authorization (carin 14 day sensor) Social History Tobacco Use Types Packs/Day Years [...] encounter Miscellaneous Notes * Telephone Encounter - Pharm. DallasD - 06/17/2021 2:23 PM EDT Prior auth approved. Pharmacy notified. * Telephone Encounter - Pharm. DallasD - 06/17/2021 12:53 PM EDT Prior auth completed through covermymeds for carin 14 day sensor: [id number] Once I get the determination, I will notify pharmacy Maritza Chowdary PharmD., BCACP Clinical Pharmacist [facility] [email or web address] Office: Wednesdays [phone], Fridays [phone], (other days) documented in this encounter Plan of Treatment Not on file documented as of this encounter Visit Diagnoses Not on filedocumented in this encounter Care Teams Tanning Drum Operator Relationship Specialty Start Date End Date Edith Wong MD PCP - General Internal Medicine 08/29/19 09/11/21 Monse Flores MD [address] [place] [id number] PCP - General Internal Medicine 09/12/21 [facility] 11/23/17 documented as of this encounter
--- OUTSIDE RECORDS SUMMARY | 2025-09-04 06:37 | XMS_ITS | Encounter Summary ---
Author Organization [facility] Address [address] [place] [address] Care Team Providers Care Rn Care Transition Name Role Phone Community, Pcp Unavailable Unavailable Edith Wong MD Primary Care Provider Unavail able Monse Flores MD Primary Care Provider [phone] Reason for Visit * Reason Comments E-prescribe Rx Request Encounter Details Date Type Department Care Team Description 09/09/2021 Refill Respiratory and Diabetes Medicaid/ACO Pharmacist [address] [place] [id number] Edith Wong MD E-prescribe Rx Request Social [...] Telephone Encounter - Francia Roblero M.A. - 09/12/2021 11:05 AM EST Last office visit 08/08/21 ?? Pt needs to choose a new PCP and schedule an appt * Telephone Encounter - Tammy Ramos - 09/12/2021 10:42 AM EST Patient would like script to be: E-PRESCRIBED/FAXED TO PHARMACY WHEN WAS THE PATIENT'S LAST APPOINTMENT IN ADULT MEDICINE? 08/08/2021 WHEN WAS THE LAST TIME THE PATIENT SAW THEIR PCP? 08/01/2021 Does patient have an upcoming appointment? Yes sent letter (THE MEDICATION REQUESTED IS ON THE MED [...] N/A Patients current insurance carrier is: Payor: [employer] FFS / Plan: [employer] / Product Type: MEDICAID RISK documented in this encounter Plan of Treatment Not on file documented as of this encounter Visit Diagnoses Not on filedocumented in this encounter Care Teams Rn Care Transition Relationship Specialty Start Date End Date Edith Wong MD PCP - General Internal Medicine 08/29/19 09/11/21 Monse Flores MD [address] [place] [address] PCP - General Internal Medicine 09/12/21 [facility] [place] 11/23/17 documented as of this encounter
--- OUTSIDE RECORDS SUMMARY | 2025-09-04 06:37 | XMS_ITS | Encounter Summary ---
Author Organization [facility] Address [address] [place] [address] Care Team Providers Care New Order Clerk Name Role Phone Community, Pcp Unavailable Unavailable Edith Wong MD Primary Care Provider Unavail able Monse Flores MD Primary Care Provider [phone] Reason for Visit * Reason Onset Date Comments refill request 06/11/2020 Encounter Details Date Type Department Care Team Description 06/11/2020 Refill Endocrinology - [place] [address] [place] [address] Katelyn Tracey PA-C [address] [place] [address] refill request Social History Tobacco Use Types [...] encounter Miscellaneous Notes * Telephone Encounter - Kristie Mckinley - 06/11/2020 2:40 PM EDT All of the medications requested were on the CURRENT MEDS list Did you check the Pharmacy information above?: YES Patient wants: 30 -day supply Is this a mail order prescription request ? NO If the refill is from a FAXED refill request what is the RX # listed on the fax? N/A Patients current insurance carrier is: Payor: [employer] FFS / Plan: [facility] / Product Type: MEDICAID RISK documented in this encounter Plan of Treatment Not on file documented as of this encounter Visit Diagnoses Not on filedocumented in this encounter Care Teams New Order Clerk Relationship Specialty Start Date End Date Edith Wong MD PCP - General Internal Medicine 08/29/19 09/11/21 Monse Flores MD [address] [place], [place] [id number] PCP - General Internal Medicine 09/12/21 [facility] Pcp Internal Medicine 11/23/17 documented as of this encounter
--- OUTSIDE RECORDS SUMMARY | 2025-09-04 06:37 | XMS_ITS | Encounter Summary ---
Author Organization [facility] Address [address] [place] [address] Care Team Providers Care Eligibility Supervisor Name Role Phone Community, Pcp Unavailable Unavailable Edith Wong MD Primary Care Provider Unavail able Lashell Villanueva MD Primary Care Provider Unav ailable Ediht Wong MD Primary Care Provider Unavail able Monse Flores MD Primary Care Provider [phone] Encounter Details Date Type Department Care Team Description 12/29/2018 Orders Only Adult Medicine [address] [address] Edith Wong MD Social History Tobacco Use [...] on filedocumented in this encounter Care Teams Eligibility Supervisor Relationship Specialty Start Date End Date Edith Wong MD PCP - General Internal Medicine 10/31/18 03/28/19 Lashell Villanueva MD PCP - General Internal Medicine 03/29/19 9 Edith Wong MD PCP - General Internal Medicine 08/29/19 09/11/21 Monse Flores MD [address] [place] [address] PCP - General Internal Medicine 09/12/21 [facility], Pcp Internal Medicine 11/23/17 documented as of this encounter
--- OUTSIDE RECORDS SUMMARY | 2025-09-04 06:37 | XMS_ITS | Encounter Summary ---
Author Organization [facility] Address [address] [place] [address] Care Team Providers Care Char Dust Cleaner And Salvager Name Role Phone Community, Pcp Unavailable Unavailable Edith Wong MD Primary Care Provider Unavail able Monse Flores MD Primary Care Provider [phone] Encounter Details Date Type Department Care Team Description 07/04/2021 Orders Only Medical Records [address] [place] [id number] Ena Cui MD Social History Tobacco Use [...] on file documented as of this encounter Progress Notes * Ena Cui MD - 07/04/2021 4:13 PM EDT Recommend repeat colonoscopy in 5 years. documented in this encounter Plan of Treatment Not on file documented as of this encounter Procedures Procedure Name Priority Date/Time Associated Diagnosis Comments OUTSIDE PATHOLOGY Routine 07/02/2021 documented in this encounter Results * OUTSIDE PATHOLOGY (07/02/2021) Ena Cui MD OUTSIDE LAB documented in this encounter Visit Diagnoses Not on filedocumented in this encounter Care Teams Char Dust Cleaner And Salvager Relationship Specialty Start Date End Date Edith Wong MD PCP - General Internal Medicine 08/29/19 09/11/21 Monse Flores MD [address] [place] [address] PCP - General Internal Medicine 09/12/21 [facility] Internal Medicine 11/23/17 documented as of this encounter
--- OUTSIDE RECORDS SUMMARY | 2025-09-04 06:37 | XMS_ITS | Encounter Summary ---
Author Organization [facility] Address [address] [place] [address] Care Team Providers Care Skilled Nursing Facility Counselor Name Role Phone Community, Pcp Unavailable Unavailable Edith Wong MD Primary Care Provider Unavail able Lashell Villanueva MD Primary Care Provider Unav ailable Edith Wong MD Primary Care Provider Unavail able Monse Flores MD Primary Care Provider [phone] Encounter Details Date Type Department Care Team Description 12/05/2018 Orders Only Gastroenterology - [address] [place] [address] Ena Cui MD NAFLD (nonalcoholic [...] 0.3 mg/dL 12/12/2018 1:49 PM EST [facility] 0.3 0.0 - 1.1 mg/dL 12/12/2018 1:49 PM EST [facility] 12/12/2018 10:0 1 AM EST 12/12/2018 10:03 AM EST Ena Cui MD LAB [facility] documented in this encounter Visit Diagnoses Diagnosis NAFLD (nonalcoholic fatty liver disease)- Primary Other chronic nonalcoholic liver disease documented in this encounter Care Teams Skilled Nursing Facility Counselor Relationship Specialty Start Date End Date Edith Wong MD PCP - General Internal Medicine 10/31/18 03/28/19 Lashell Villanueva MD PCP - General Internal Medicine 03/29/19 9 Edith Wong MD PCP - General Internal Medicine 08/29/19 09/11/21 Monse Flores MD [address] [place] [id number] PCP - General Internal Medicine 09/12/21 [facility] Internal Medicine 11/23/17 documented as of this encounter
--- OUTSIDE RECORDS SUMMARY | 2025-09-04 06:37 | XMS_ITS | Clinical Summary ---
Author Organization [facility] Address [address] [place] [address] Phone Care Team Providers Care Clinic Manager Name Role Phone Anel Barrera MD [...] Problem Noted Date Diagnosed Date Cerebrovascular accident ([facility] V24, [facility] V 28) 05/17/2025 Polysubstance abuse ([facility], [facility] V28) 0 01/23/2021 Overview (09/29/2024): [...] Overdose of opiate or relate d narcotic ([facility] V[facility], [facility] V28) 04/06/2018 Overview (09/29/2024): 04/06/2018 Microalbuminuria 03/15/2018 Bipolar 1 disorder ([facility] V[facility], [facility] V28) Carpal tunnel syndrome 02/25/2018 Overview (09/29/2024): S/p release 2014 Hyperlipidemia associated wi th type 2 diabetes mellitus ([facility] V[facility], [facility] V28) 02/25/2018 Diabetic peripheral neuropathy ([facility] V24, [facility] V28) 02/25/2018 Diabetes mellitus type 2 wit h neurological manifestations ([facility] V[facility], [facility] V28) 11/07/2014 Nuclear sclerosis 10/30/2014 Overview (09/29/2024): Dr Kaur note 01-24-2009 Shoulder impingement syndrome 10/30/2014 Overview (09/29/2024): Tammy Singer note 02-19-2014 HTN (hypertension), benign 02/19/2009 Necrobiosis lipoidica diabet icorum ([facility] V24, [facility] V28) 02/01/2009 Posttraumatic stress disorder 07/16/2006 Type 2 diabetes mellitus ([facility] V24, [facility] V 28) 10/01/2005 Immunizations Immunization Administration Dates [...] HERNIA REPAIR/ING OTHER SURGICAL HISTORY 04/2009 PROCEDURE: [place] LAPS GASTRIC RESTRICTIVE PROCEDURE PLACE DEVICE; COMMENT: [facility] Dr [place]iscoe 224lbs starting wt HAND SURGERY PROCEDURE: HISTORICAL HAND SURGERY; COMMENT: Bilateral carpal tunnel release HERNIA REPAIR PROCEDURE: HISTORICAL HERNIA REPAIR/ING SECTION PROCEDURE: HISTORICAL ; COMMENT: x 2 BREAST REDUCTION 1980 Bilateral PROCEDURE: [place] BREAST REDUCTION COLONOSCOPY 07/02/2021 PROCEDURE: HISTORICAL COLONOSCOPY; COMMENT: polyp Medical History Medical History Date Comments Bipolar 1 disorder ([facility] V24, [facility] V28) 02/25/2018 DX:Bipolar 1 disorder (HCC) Diabetes mellitus type 2 wit h neurological manifestations ([facility], [facility] V28) 11/07/2014 DX:Diabetes mellitus type 2 with neurological manifestations (HCC) Diabetic peripheral neuropat hy ([facility] V[facility], [facility] V28) 02/25/2018 DX:Diabetic peripheral neur opathy (HCC) Type 2 diabetes mellitus wit h diabetic retinopathy ([facility], [facility] V28) 10/01/2005 DX:Type 2 diabe noel mellitus with diabetic retinopathy (HCC) HTN (hypertension), benign 02/19/2009 DX:HT N (hypertension), benign Hyperlipidemia associated wi th type 2 diabetes mellitus ([facility] V24, [facility] V28) 02/25/2018 DX:Hyperlipidemia associated with type 2 diabetes mellitus (HCC) Necrobiosis lipoidica diabet icorum ([facility] V24, [facility] V28) 02/01/2009 DX:Necrobiosis lipoidica diabeticorum (HCC) Nuclear sclerosis 10/30/2014 DX:Nuclear scl erosis; COMMENT: Dr Kaur note 01-24-2009 Posttraumatic stress disorder 07/16/2006 DX :Posttraumatic stress disorder Shoulder impingement syndrome 10/30/2014 DX :Shoulder impingement syndrome; COMMENT: Tammy Singer note 02-19-2014 Tobacco abuse 03/14/2018 DX:Tobacco abuse Carpal tunnel syndrome 02/25/2018 DX:Carpal tunnel syndrome; COMMENT: S/p release 2014 Type 2 diabetes with nephrop athy ([facility], [facility] V28) 03/15/2018 DX:Type 2 diabetes with nep hropathy (HCC) Microalbuminuria 03/15/2018 DX:Microalbumin uria Overdose of opiate or relate d narcotic ([facility] V[facility], [facility] V28) 04/06/2018 DX:Overdose of opiate or re lated narcotic ([facility]); COMMENT: 04/06/2018 Positive urine drug [...] macular edema, bilateral (CMS/HCC V24, CMS/HCC V28) box liner (current) use of insulin ([facility]/HCC V24, [facility] V28) HPV Routine 01/17/2019 HEPATITIS C SCREENING Routine 09/09/2018 HIV SCREENING Routine 03/22/2006 from Last 3 Months or Most Recently Relevant to Health Maintenance Results * (ABNORMAL) Basic metabolic panel (05/23/2025 12:22 PM EDT) Sodium 135 133 - 145 mmol/L LAB CHEMISTRY METHOD 05/23/2025 1:59 PM [facility] Potassium 4.3 3.5 - 5.5 mmol/L LAB CHEMISTRY METHOD 05/23/2025 1:59 PM [facility] Chloride 107 96 - 110 mmol/L LAB CHEMISTRY METHOD 05/23/2025 1:59 PM [facility] CO2 21 21 - 32 mmol/L LAB CHEMISTRY METHOD 05/23/2025 1:59 PM [facility] Anion Gap 7 3 - 11 LAB CHEMISTRY METHOD 05/23/2025 1:59 PM [facility] Glucose 225(H) 70 - 100 mg/dL LAB CHEMISTRY METHOD 05/23/2025 1:59 PM [facility] BUN 23 5 - 25 mg/dL LAB CHEMISTRY METHOD 05/23/2025 1:59 PM [facility] Creatinine 1.35(H) 0.50 - 1.10 mg/dL LAB CHEMISTRY METHOD 05/23/2025 1:59 PM [facility] eGFR 45(L) >=60 mL/min/1. 73m2 LAB CHEMISTRY METHOD 05/23/2025 1:59 PM [facility] Comment:Calculation based on the Chronic Kidney Disease Epidemiology Collaboration (CKD-EPI) equation refit without adjustment for race. BUN/Creatinine Ratio 17.0 LAB CHEMISTRY METHOD 05/23/2025 1:[address] [facility] Calcium 8.4(L) 8.5 - 10.5 mg/dL LAB CHEMISTRY METHOD 05/23/2025 1:[address] [facility] Blood Venous blood specimen / Unknown Venipuncture / Unknown 05/23/2025 12:22 PM EDT 05/23/2025 12:30 PM EDT Carmen MERRILL LAB BLOOD ORDERABLES Final R esult [facility] [address] [place] [address], [place] [phone] * (ABNORMAL) Hemoglobin A1c (09/22/2021) [facility] Hemoglobin A1C 7.2(A) <=6.5 % Blood Venous blood specimen / Unknown Result [facility] Historical Provider LAB BLOOD ORDERABLES Stephie l Result * Urine Albumin Creatinine Ratio (08/05/2021) [facility] Urine Albumin Creatinine Ratio Abstracted Result [facility] Historical Provider HEALTH MAINTENANCE Final Result * Lipid panel (08/05/2021) [facility] LDL/HDL Ratio 2 0 - 4 Triglycerides 115 0 - 150 mg/dL Cholesterol 154 0 - 200 mg/dL HDL 67 >=40 mg/dL LDL Cholesterol 64 0 - 100 mg/dL Blood Venous blood specimen / Unknown Result [facility] Historical Provider LAB BLOOD ORDERABLES Stephie l Result * Colonoscopy (07/02/2021) Pathologist [facility] Colonoscopy No interpreta tion,abstr acted Anatomical Region [...] Cancer Screening: HPV (01/17/2019) Pathologist [facility] Cervical Cancer Screening: HPV Negative Abstracted Historical Provider [facility] MAINTENANCE Final Result * Hepatitis C Screening (09/09/2018) Pathologist [facility] Hepatitis C Screening Abstracted us Historical Provider [...] ID:[id number] Group ID:[id number] Type:Not on file Address: [place] [address] [place] [id number] Advance Directives Documents on File Type Date Recorded 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 Care Teams Clinic Manager Relationship Specialty Start Date End Date Anel Barrera MD [address] [place] [address] PCP - General Internal Medicine 05/18/25
--- OUTSIDE RECORDS SUMMARY | 2025-09-04 06:37 | XMS_ITS | Encounter Summary ---
Author Organization [employer] [facility] Address [address] [place] [address] Care Team Providers Care Timekeeper Name Role Phone Community, Pcp Unavailable Unavailable Edith Wong MD Primary Care Provider Unavail able Monse Flores MD Primary Care Provider [phone] Encounter Details Date Type Department Care Team Description 01/02/2021 [facility] Medical Records [address] [place] [address] Waleska Cooper PA-C Social History Tobacco Use [...] on filedocumented in this encounter Care Teams Timekeeper Relationship Specialty Start Date End Date Edith Wong MD PCP - General Internal Medicine 08/29/19 09/11/21 Monse Flores MD [address] [place] [address] [id number] PCP - General Internal Medicine 09/12/21 Community, Pcp Internal Medicine 11/23/17 documented as of this encounter
--- OUTSIDE RECORDS SUMMARY | 2025-09-04 06:37 | XMS_ITS | Clinical Summary ---
Author Organization [facility] Address [address] [place] [address] Care Team Providers Care Order Runner Name Role Phone Community, Pcp Unavailable Unavailable Monse Flores MD Primary Care Provider [phone] Allergies Active Allergy Reactions Severity Noted Date Comments Amitriptyline OTHER 09/05/2018 Tinnitus Medications Medication Sig Dispensed Refills Start Date End Date Status VITAMIN E 800 UNIT OR CAPS 1 cap po TID 90 2 02/01/2009 Active VITAMIN D 1000 UNIT OR TABS one tab twice daily 0 Active Multiple Vitamins-Minerals (MULTIVITAMIN OR) Take once daily by mouth 0 Active [place]-3 Fatty Acids (FISH OIL OR)Indications:Pre-op examination,Cervical spinal stenosis Take by mouth. 0 Activ e aspirin 81 MG tablet Take 81 mg by mouth daily. 0 Active Potassium 99 MG Tab Take by mouth daily. 0 Active glucose blood test strips (FreeStyle Precision Rivera Test) strip Use as needed to check blood glucose if Bhavesh sensor reading for blood sugar is below 65 or if there is question of Bhavesh CGM accurancy. 100 Each 0 03/28/2021 Active glucose monitoring kit (FREESTYLE) monitoring kit Use to test blood sugar 1 Each 0 03/28/2021 Active Insulin Glargine (Lantus SoloStar) 100 UNIT/ML Solution Pen-injector Inject 25 Units into the skin at bedtime. *put on hold- pt needs to pick new pharmacy* 9 mL 0 03/28/2021 Active Insulin Pen Needle (B-D U/F PEN NEEDLE) 31G X 5 MM Misc Use with insulin 4 times a day 400 Each 0 03/28/2021 Active buPROPion (WELLBUTRIN XL) 150 MG 24 hr tablet Take 1 tablet by mouth every morning. 90 tablet 1 03/28/2021 Active quetiapine (SEROQUEL) 25 MG tablet Take 1 tablet by mouth at bedtime. 90 tablet 1 03/28/2021 Active FreeStyle Lancets Misc Test blood sugar four times a day 400 Each 0 01/24/2021 Active Insulin Glargine (Lantus SoloStar) 100 UNIT/ML Solution Pen-injector Inject 25 Units into the skin at bedtime. 5 Device 5 01/24/2021 Active hydrOXYzine (ATARAX) 10 MG tablet Take 10 mg by mouth 2 times daily as needed. 0 Active Continuous Blood Gluc Sensor (FreeStyle Bhavesh 14 Day Sensor) Misc 1 Device by Does not apply route every 14 days. Apply to the back of the arm every 14 days. 2 Each 11 03/28/2021 Active Continuous Blood Gluc Brick And Blocker Aid Labor (FreeStyle Bhavesh 14 Day [place]) Device 1 Device by Does not apply route continuous. Use reader to scan sensor at least every 8 hours 1 Device 0 03/28/2021 Active busPIRone (BUSPAR) 10 MG tabletIndications:Type 2 diabetes mellitus with both eyes affected by mild nonproliferative retinopathy without macular edema, with long-term current use of insulin (HCC),Lumbar back pain,Polysubstance abuse (HCC),Diabetes mellitus type 2 with neurological manifestations (HCC),Diabetic peripheral neuropathy (HCC),Moderate episode of recurrent major depressive disorder (HCC),Chronic midline low back pain without sciatica Take 2 Tablets by mouth 2 times daily. 0 08/01/2021 Active Buprenorphine HCl-Naloxone HCl (Suboxone) 8-2 MG FILMIndications:Type 2 diabetes mellitus with both eyes affected by mild nonproliferative retinopathy without macular edema, with long-term current use of insulin (HCC),Lumbar back pain,Polysubstance abuse (HCC),Diabetes mellitus type 2 with neurological manifestations (HCC),Diabetic peripheral neuropathy (HCC),Moderate episode of recurrent major depressive disorder (HCC),Chronic midline low back pain without sciatica Place 1 Film under the tongue every morning. 30 Each 0 08/01/2021 Active omeprazole (PRILOSEC) 40 MG capsule TAKE 1 CAPSULE BY MOUTH EVERY DAY 90 capsule 1 09/12/2021 Active tacrolimus (Protopic) 0.03 % ointment Apply to affected area BID 30 g 1 09/17/2021 Active Insulin Glargine (Lantus SoloStar) 100 UNIT/ML Solution Pen-injector INJECT 25 UNITS INTO THE SKIN AT BEDTIME. 30 mL 0 10/13/2021 Active nicotine (Nicotrol) 10 MG inhalerIndications:Type 2 diabetes mellitus with both eyes affected by mild nonproliferative retinopathy without macular edema, with long-term current use of insulin ([facility]),Lumbar back pain,Polysubstance abuse ([facility]),Diabetes mellitus type 2 with neurological manifestations ([facility]),Diabetic peripheral neuropathy ([facility]),Moderate episode of recurrent major depressive disorder ([facility]),Chronic midline low back pain without sciatica Inhale 1 Puff into the lungs as needed for Smoking cessation. 168 Each 0 10/13/2021 Active FreeStyle Lancets Misc TEST BLOOD SUGAR FOUR TIMES A DAY 400 Each 0 11/26/2021 Active B-D U/F PEN NEEDLE 31G X 5 MM Misc USE WITH INSULIN 4 TIMES A DAY 400 Each 0 11/26/2021 Active metformin (GLUCOPHAGE) 1000 MG tablet TAKE 1 TABLET BY MOUTH TWICE DAILY- WITH MEALS 180 tablet 1 12/16/2021 Active ropinirole (REQUIP) 0.25 MG tablet TAKE 1 TABLET BY MOUTH TWICE A DAY 180 Tablet 0 01/09/2022 Active Insulin Lispro (HumaLOG KwikPen) 100 UNIT/ML Solution Pen-injector Inject 8 Units into the skin 3 times daily (with meals). 15 mL 0 01/20/2022 Active nabumetone (RELAFEN) 500 MG tablet Take 1 Tablet by mouth 2 Times Daily. 60 Tablet 0 03/02/2022 Active Active Problems Patient Care Coordination No te Formatting of this note is d ifferent from the original. Checking Your Blood Sugars Please check your blood sugars every day. Please check your sugars at the following times of day: before breakfast Your Blood Sugar Goals Pre Meal: 90-130 2 hours after meals: 110-160 Bedtime: 110-150 Use the Results Bring your glucometer to every appointment Write your fingerstick blood sugars down on a log sheet or record book. Bring them to your appointment Look for patterns in the numbers. The results help you and your provider make decisions about your diabetes treatment plan. Your Results and your Goals Your Result / Date of Completion Your Goal / How Often to Assess Component Value Date HGBA1C 8.5 07/12/2014 Less than 7%--- 2-4 times per year BP Readings from Last 1 Encounters: 03/12/14 118/64 Less than 130/80--- once per year Component Value Date LDL 99 07/12/2014 LDL less than 100--- once per year Component Value Date MALBUR 3.7 07/12/2014 Less than 30--- once per year Wt Readings from Last 1 Encounters: 03/12/14 147 lb 9.6 oz (66.951 kg) Your goal weight by next visit: 170lbs --- reassess 2-4 times a year Health Maintenance Due Topic Date Due Diabetes: Annual Foot Exam 01/26/2014 Diabetes: Annual Care Plan 01/26/2014 Mammogram 02/23/2014 Adult Immunization: Influenza For High Risk Patients 06/11/2014 Your Action Plan Check blood glucose as directed and write down all results. Check feet for sores every day Contact me if you experience any barriers to care such as inability to purchase your medication, difficulty getting to your appointments or difficulty understanding your care plan Please get your yearly flu shot When to Call your Healthcare Provider If your blood sugar falls below 70 and you do not know why or you become unconscious If you are sick and unable to take liquids because or nausea or vomiting If you have a fever over 101 If your blood sugar is 300 or higher on greater than 3 separate occasions during the same week If you are just unsure what to do Educational Resources [place] Diabetes Association (www.diabetes.org) Centers for Disease Control and Prevention (www.cdc.gov/diabetes) This care plan was created in collaboration with Shama Goddard on 08/24/2014 Problem Noted Date Polysubstance abuse 01/23/2021 Overview: Using IV drugs as well as intranasal heroin and Xanax Cognitive decline 12/21/2019 Overview: Normal CT scan of the head December 2019, follows with neurology, diabetes related. Normal B12, negative lyme, RPR. Normal EEG Cervical spinal stenosis 11/02/2018 Overview: Severe, follows with neurosurgery and physiatry Transaminitis 09/09/2018 Overview: US, hepatitis work up unremarkable. Referred to GI Anemia of chronic disease 09/07/2018 Overview: Normal iron and b12 08/2018 Positive urine drug screen 09/05/2018 Overview: Hospitalized for AMS had opiod withdrawal and positive urine drug screen see provider note 07/2108 Overdose of opiate or related narcotic 0 04/06/2018 Overview: 04/06/2018 Type 2 diabetes with nephropathy 018 Microalbuminuria 03/15/2018 Tobacco abuse 03/14/2018 Hyperlipidemia associated with type 2 di abetes mellitus 02/25/2018 Carpal tunnel syndrome 02/25/2018 Overview: S/p release 2014 Bipolar 1 disorder 02/25/2018 Diabetic peripheral neuropathy 8 Diabetes mellitus type 2 with neurologic al manifestations 11/07/2014 Nuclear sclerosis 10/30/2014 Overview: Dr Kaur note 01-24-2009 Shoulder impingement syndrome 10/30/2014 Overview: Tammy Singer note 02-19-2014 HTN (hypertension), benign 02/19/2009 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 Posttraumatic stress disorder 07/16/2006 Type 2 diabetes mellitus with diabetic r etinopathy 10/01/2005 Resolved Problems Problem Noted Date Resolved Date Type 2 diabetes mellitus wit h neurological manifestations, controlled 02/25/2018 03/14/2018 Nuclear sclerosis 02/25/2018 03/14/2018 Carpal tunnel syndrome on both sides 11/07/2014 03/14/2018 Elevated liver enzymes 12/07/2008 8 Bipolar I disorder 07/16/2006 03/14/2018 Mixed hyperlipidemia 10/01/2005 03/14/2018 Hypothyroidism 10/01/2005 03/14/2018 Overview: Not on meds Immunizations Name Administration Dates Next Due COVID-19 (Moderna) 04/25/2022,11/24/2021 COVID-19 (Moderna) PT Reported 03/13/2021,2020 Hepatitis-A (>19YRS) 11/30/2019,09/28/2018 Influenza (> 6 Months) 08/24/2014,2012,07/15/2012,11/05,08/21/2008,07/16/2006 Influenza Vaccine-preservati ve Free-quadrivalent 4 Years 08/21/2018 Pneumoccoccal(Adult) Polysac charide PPSV23 07/16/2006 Tdap 03/27/2021,12/24/2008 Family History Medical History Relation Name Comments No Known Problems Brother 1 Diabetes Brother 2 from d m complications No Known Problems Brother 3 Other Father 1970 CA Breast Mother 45 CAD Mother 45 Cancer of the Breast Mother 45 Cataract Mother 45 Diabetes Mother 45 Other Mother 45 1989, cancer, heart Uterine Cancer Mother 45 No Known Problems Sister Blindness Negative Hx CA Colon Negative Hx CA Ovarian Negative Hx Cancer of the Pancreas Negative Hx Cancer of the Prostate Negative Hx Glaucoma Negative Hx Macular Degeneration Negative Hx Strabismus Negative Hx Relation Name Status Comments Brother 1 2,not sure Brother 2 Brother 3 Alive Father co poismoning Mother 45 Sister Alive 1,healthy Social History Tobacco Use Types Packs/Day Years Used Date Smoking Tobacco: Former Cigarettes 0.5 40 S tarted: 1976 Smokeless Tobacco: Never Tobacco Cessation:Ready to Q uit: Yes; Counseling Given: Yes Alcohol Use Standard Drinks/Week Comments No 0 (1 standard drink = 0.6 oz pur e alcohol) Sex Assigned at Date Recorded Female 06/11/2020 12:03 PM EDT Job Start Date Occupation Industry Not on file Not on file Not on file Last Filed Vital Signs Vital Sign Reading Time Taken Comments Blood Pressure 152/78 01/15/2022 8:47 AM EDT Pulse 76 01/15/2022 8:47 AM EDT Temperature 37.1 C (98.7 F) 03/27/2021 1:32 PM EDT Respiratory Rate 16 01/15/2022 8:47 AM EDT Oxygen Saturation 97% 03/27/2011 11:06 AM EDT Inhaled Oxygen Concentration - - Weight 72.1 kg (159 lb) 01/15/2022 8:47 AM EDT Height 157.5 cm (5' 2 ) 09/17/2021 12:50 PM EST Body Mass Index 29.08 09/17/2021 12:50 PM EST Plan of Treatment Health Maintenance Due Date Last Done Comments SHINGLES VACCINE (1 of 2) 2015 BASELINE HEALTH EXAM 40-64 10/10/202010/10, 05/25/2013, 04/25/2010, Additional history exists DIABETES: BLOOD SUGAR CONTRO L TEST (HGBA1C) 12/21/2021 09/22/2021, 08/05/2021, 03/31/2021, Additional history exists DIABETES: ANNUAL FOOT EXAM 03/27/202203/27, 03/27/2021 (Completed), 12/13/2019 (Completed), Additional history exists DIABETES: ANNUAL EYE EXAM 04/23/20222020, 12/26/2018 (External Completion), 12/26/2018, Additional history exists MAMMOGRAM 05/01/2022 05/01/2021, 04/0 06/2019, 02/23/2013, Additional history exists DIABETES/HEART DISEASE: RIGO AL CHOLESTEROL (LDL) 08/05/2022 08/05/2021, 12/13/2019, 11/02/2019, Additional history exists DIABETES: ANNUAL URINE PROTE IN TEST (MICROALBUMIN) 08/05/2022 08/05/2021, 12/13/2019, 09/05/2018, Additional history exists CERVICAL CANCER SCREENING 01/18/20242018, 10/10/2018 (Refused), 09/05/2012, Additional history exists BMI CHECK/ADVISE 10/11/2024 01/15/2022, 04/2022 (Completed), 08/08/2021, Additional history exists DEPRESSION SCREENING/FOLLOWUP 10/11/2024 (Completed), 10/03/2021, 08/05/2021, Additional history exists SOCIAL NEEDS SCREENING 10/11/2024 , 03/19/2021, 12/13/2019 (Completed), Additional history exists Covid-19 Vaccine (5 - 3-2 4 season) 2025 04/25/2022, 11/24/2021, 03/13/2021, Additional history exists INFLUENZA (#1) 2025 08/21/2018, 08/11, 08/25/2013, Additional history exists COLON CANCER SCREENING 07/02/2026 , 07/02/2021 (Completed) PNEUMOCOCCAL VACCINE FOR HIG H RISK PATIENTS (#2) 2030 07/16/2006 DTAP/TDAP/TD (3 - Td or Tdap) 03/27/2031 (Completed), 03/27/2021, 12/24/2008 HEPATITIS C SCREENING Completed 09/09/2018 , 03/03/2013, 12/07/2008, Additional history exists Care Teams Order Runner Relationship Specialty Start Date End Date Monse Flores MD [address] [place] [address] [id number] PCP - General Internal Medicine 09/12/21 [facility], Pcp Internal Medicine 11/23/17
--- OUTSIDE RECORDS SUMMARY | 2025-09-04 06:37 | XMS_ITS | Encounter Summary ---
Author Organization [facility] Address [address] [place] [address] Care Team Providers Care Wheel Inspector Name Role Phone Community, Pcp Unavailable Unavailable Sha Wong MD Primary Care Provider Unavail able Monse Flores MD Primary Care Provider [phone] Reason for Visit * Reason Onset Date Comments Confusion 09/28/2019 weight loss 09/28/2019 memory loss 09/28/2019 Encounter Details Date Type Department Care Team Description 09/28/2019 Telephone Adult Medicine [address] [address] Sha Wong MD Confusion; weight loss; memory loss Social History Tobacco Use Types Packs/Day Years [...] Miscellaneous Notes * Telephone Encounter - Rowena uBrr R.N. - 09/28/2019 11:58 AM EST Pt has been having memory problems for months , she forgets where she is when she is driving ( got lost in a neighborhood she is very familiar with and had to have her son come and get her ) forgets her meds, forgets to eat, she came 2 days early for her appointment, then forgot to come on the day it was planned Pt has not been ill, no N/V/D or fever, she has not had a any headache or vision changes no weakness or dizziness, has memory issues ongoing, as well as depression . Pt to see dr SHA WONG 10/02 at 11:45 * Telephone Encounter - Lidia Mary - 09/28/2019 11:31 AM EST Symptoms patient is having: Patient had an appointment today 09/28/19 @9:30a.m. And missed it with SHA WONG. Patient states that she has been having memory issues, weight loss and confusion. She rescheduled an appointment on My chart for 12/13/19 with SHA WONG for a sick visit. If pain or injury related was it due to an accident at work or from a motor vehicle accident? NO If yes, gather 3rd republican insurance information Date of accident/Injury: How long has patient had these symptoms?: PCP: SHA WONG Payor: [employer] / Plan: [employer] / Product Type: MEDICAID RISK documented in this encounter Plan of Treatment Not on file documented as of this encounter Visit Diagnoses Not on filedocumented in this encounter Care Teams Wheel Inspector Relationship Specialty Start Date End Date Sha Wong MD PCP - General Internal Medicine 08/29/19 09/11/21 Monse Flores MD [address] [place] [id number] PCP - General Internal Medicine 09/12/21 [facility] Internal Medicine 11/23/17 documented as of this encounter
--- OUTSIDE RECORDS SUMMARY | 2025-09-04 06:37 | XMS_ITS | Encounter Summary ---
Author Organization [facility] Address [address] [place] [address] Care Team Providers Care Pump Erector Name Role Phone Community, Pcp Unavailable Unavailable Edith Wong MD Primary Care Provider Unavail able Monse Flores MD Primary Care Provider [phone] Encounter Details Date Type Department Care Team Description 09/10/2020 Telephone Gastroenterology - [address] [place] [phone] Ena Cui MD Social History Tobacco [...] on filedocumented in this encounter Care Teams Pump Erector Relationship Specialty Start Date End Date Edith Wong MD PCP - General Internal Medicine 08/29/19 09/11/21 Monse Flores MD [address] [place] [id number] PCP - General Internal Medicine 09/12/21 [facility] 11/23/17 documented as of this encounter
--- OUTSIDE RECORDS SUMMARY | 2025-09-04 06:37 | XMS_ITS | Encounter Summary ---
Author Organization [facility] [employer] [facility] Address [address] [place] [address] Care Team Providers Care School Speech Therapist Name Role Phone Community, Pcp Unavailable Unavailable Edith Wong MD Primary Care Provider Unavail able Monse Flores MD Primary Care Provider [phone] Encounter Details Date Type Department Care Team Description 01/02/2021 [facility] Medical Records [address] [place] [id number] [facility] Social History Tobacco Use Types Packs/Day Years [...] on filedocumented in this encounter Care Teams School Speech Therapist Relationship Specialty Start Date End Date Edith Wong MD PCP - General Internal Medicine 08/29/19 09/11/21 Monse Flores MD [address] [place] [address] [id number] PCP - General Internal Medicine 09/12/21 [facility], Pcp Internal Medicine 11/23/17 documented as of this encounter
--- OUTSIDE RECORDS SUMMARY | 2025-09-04 06:37 | XMS_ITS | Encounter Summary ---
Author Organization [facility] [employer] [facility] Address [address] [place] [address] Care Team Providers Care Wash Oil Cooler Operator Name Role Phone Community, Pcp Unavailable Unavailable Edith Wong MD Primary Care Provider Unavail able Monse Flores MD Primary Care Provider [phone] Encounter Details Date Type Department Care Team Description 06/18/2021 Refill Gastroenterology - [address] [place] [phone] Ena Cui MD Social History Tobacco [...] on filedocumented in this encounter Care Teams Wash Oil Cooler Operator Relationship Specialty Start Date End Date Edith Wong MD PCP - General Internal Medicine 08/29/19 09/11/21 Monse Flores MD [address] [place] [address] [id number] PCP - General Internal Medicine 09/12/21 Community, [facility] Internal Medicine 11/23/17 documented as of this encounter
--- OUTSIDE RECORDS SUMMARY | 2025-09-04 06:37 | XMS_ITS | Encounter Summary ---
Author Organization [facility] [employer] [facility] Address [address] [place] [address] Care Team Providers Care Manager Financial Services Name Role Phone Community, Pcp Unavailable Unavailable Monse Flores MD Primary Care Provider [phone] Encounter Details Date Type Department Care Team Description 07/13/2023 Old Medical Records Medical Records [address] [place] [id number] [facility] Social History Tobacco Use Types [...] filedocumented in this encounter Care Teams Manager Financial Services Relationship Specialty Start Date End Date Monse Flores MD [address] [place] [address] [id number] PCP - General Internal Medicine 09/12/21 [facility], Pcp Internal Medicine 11/23/17 documented as of this encounter
--- OUTSIDE RECORDS SUMMARY | 2025-09-04 06:37 | XMS_ITS | Encounter Summary ---
Author Organization [facility] Address [address] [place] [address] Care Team Providers Care Neuro Intensivist Physician Name Role Phone Community, Pcp Unavailable Unavailable Edith Wong MD Primary Care Provider Unavail able Monse Flores MD Primary Care Provider [phone] Encounter Details Date Type Department Care Team Description 01/03/2021 Hospital Medical Records [address] [place] [address] Manuel Kaplan PA-C [address] [address] Social History Tobacco Use Types Packs/Day Years [...] on filedocumented in this encounter Care Teams Neuro Intensivist Physician Relationship Specialty Start Date End Date Edith Wong MD PCP - General Internal Medicine 08/29/19 09/11/21 Monse Flores MD [address] [place] [address] [phone] PCP - General Internal Medicine 09/12/21 Community, Pcp Internal Medicine 11/23/17 documented as of this encounter
--- OUTSIDE RECORDS SUMMARY | 2025-09-04 06:37 | XMS_ITS | Encounter Summary ---
Author Organization [facility] Address [address] [place] [address] Care Team Providers Care Manager Pathology Name Role Phone Community, Pcp Unavailable Unavailable Edith Wong MD Primary Care Provider Unavail able Lashell Villanueva MD Primary Care Provider Unav ailable Edith Wong MD Primary Care Provider Unavail able Monse Flores MD Primary Care Provider [phone] Encounter Details Date Type Department Care Team Description 02/23/2019 Mailroom Personnel Report Medical Records [address] [place] [address] Ronan Sears PA-C [address] [place] [address] [address] [place] [address] Social History Tobacco Use Types Packs/Day Years [...] filedocumented in this encounter Care Teams Manager Pathology Relationship Specialty Start Date End Date Edith Wong MD PCP - General Internal Medicine 10/31/18 03/28/19 Lashell Villanueva MD PCP - General Internal Medicine 03/29/19 9 Edith Wong MD PCP - General Internal Medicine 08/29/19 09/11/21 Monse Flores MD [address] [place] [id number] PCP - General Internal Medicine 09/12/21 [facility] Internal Medicine 11/23/17 documented as of this encounter
--- OUTSIDE RECORDS SUMMARY | 2025-09-04 06:37 | XMS_ITS | Encounter Summary ---
Author Organization [facility] [employer] [facility] Address [address] [place] [address] Care Team Providers Care Electromechanisms Design Drafter Name Role Phone Community, Pcp Unavailable Unavailable Edith Wong MD Primary Care Provider Unavail able Monse Flores MD Primary Care Provider [phone] Encounter Details Date Type Department Care Team Description 08/01/2020 Orders Only Radiology - [address] [phone] Radiology, Authorizing Social History Tobacco Use Types [...] on filedocumented in this encounter Care Teams Electromechanisms Design Drafter Relationship Specialty Start Date End Date Edith Wong MD PCP - General Internal Medicine 08/29/19 09/11/21 Monse Flores MD [address] [place] [address] [phone] PCP - General Internal Medicine 09/12/21 [facility], Pcp Internal Medicine 11/23/17 documented as of this encounter
[2025-09-04 07:46] LABS: Anion Gap 11 (12-20); Blood Urea Nitrogen 17 mg/dL (9-16); Calcium 8.7 mg/dL (8.4-10.2); Carbon Dioxide 27 mmol/L (22-29); Chloride 108 mmol/L (96-108); Cholesterol 115 mg/dL (<200); Estimated Glomerular Filt Rate 38; HDL Cholesterol 60 mg/dL (>40); Iron 52 mcg/dL (30-160); Percent Iron Saturation 22 % (15-50); Potassium 4.5 mmol/L (3.3-5.1); Sodium 141 mmol/L (135-145); Total Iron Binding Capacity 237 mcg/dL (228-428); Triglycerides 101 mg/dL (<150); Unsaturated Iron Binding 185 ug/dL
== END 2025-09-04 06:32 | disposition home or self-care (01) ==
LOC: HO.LAB 06:31
PROVIDERS: PCP Internal Medicine; Visit Provider Internal Medicine
DX: E11.69 Type 2 diabetes mellitus with other specified complication (principal); I10 Essential (primary) hypertension; E78.2 Mixed hyperlipidemia; D64.9 Anemia, unspecified; Z79.4 Long term (current) use of insulin
CPT/HCPCS: 36415; 80048; 80061; 83540; 99211

== ENCOUNTER 2025-09-04 06:56 | Outpatient (AMB) | payer OTHER, SELFPAY ==
--- NOTE | 2025-09-04 07:50 | MHC.AMDMED ---
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 Activity Required: No Accompanied by: Self / Same As Patient Allergies No Known Allergies Allergy (Verified 07/11/25 10:12) [facility] Comprehensive Diabetes Asmnt Most Recent Diabetes Results: Cholesterol, (<200) 115 mg/dL Today HDL Cholesterol, (>40) 60 mg/dL Today Triglycerides, (<150) 101 mg/dL Today Creatinine, (0.5-1.4) 1.42 mg/dL H Today BUN, (9-16) 17 mg/dL H Today Sodium, (135-145) 141 mmol/L Today Potassium, (3.3-5.1) 4.5 mmol/L Today Chloride, (96-108) 108 mmol/L Today Carbon Dioxide, (22-29) 27 mmol/L Today Calcium, (8.4-10.2) 8.7 mg/dL Today AST, (5-31) 28 U/L 06/30/25 ALT, (0-31) 16 U/L 06/30/25 PFSH Medical History (Updated 07/18/25 @ 09:02 by Tomasz Jones MD) History of CVA (cerebrovascular accident) Iron deficiency anemia History of opioid abuse Depression with anxiety Peripheral vascular disease Essential hypertension Cigarette smoker motivated to quit Uncontrolled type 2 diabetes mellitus with hyperglycemia Diabetes mellitus with nephropathy Annual visit for general adult medical examination with abnormal findings section wound complications Encounter to establish care Type II diabetes mellitus Diabetes COPD (chronic obstructive pulmonary disease) Surgical History (Updated 07/10/25 @ 12:16 by DEMETRIA Linder) History of above-knee amputation of right lower extremity Hx of cardiac cath H/O neck surgery History of mandibular surgery H/O foot surgery H/O hernia repair H/O section H/O angioplasty History of hysterectomy History of colonoscopy History of laparoscopic adjustable gastric banding S/P bilateral breast reduction S/P carpal tunnel release Status post cataract extraction Family History Sister Breast cancer Mother Breast cancer Substance use disorder Mental health disorder Brother Substance use disorder Brother Substance use disorder Sister No problems noted. 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 Reviewed the basic principles of carbohydrate counting.? Insulin to carb ratio, and insulin sensitivity factor calculated based on rule of 450 for insulin to carb ratio, and rule of 1500 for insulin sensitivity factor. Instructed patient on the importance of accurate calculation of the amount of carbs per meal for optimal glucose control Reviewed how to calculate mealtime bolus with insulin to carb ratio Reviewed how to calculate correction dose with insulin sensitivity factor Patient's adjusted TDD estimate 40 units Insulin to Carbohydrate ratio:1:8 Correction factor:1:38 Correcting to 110 mg/dL Diet Recall: Breakfast: [place] with hard boiled eg g Patient given healthy plate handout, for resource for carbohydrate counting Encourage patient to fill out food logs, estimating carbohydrates at meals, noting glucose number prior to meal, and how many units of insulin taken prior to meals Set up bolus calc jose angel in patient's cell phone Pt able to calculated needed insulin based on estimated carbohydrate content Instructed patient that there may need to be adjustment to insulin to carb ratio and sensitivity factor based on blood glucose trends. Patient has decided to use Omnipod 5 with Dexcom G7, reports she is more comfortable with Omnipod since she has a grandson who is currently on Omnipod 5 as well Patient will make appointment for Omnipod training with sample starter kit Portions of this note were created using voice recognition software, please excuse any words or phrases that may have been misinterpreted. Patient 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: Fill out food, insulin and glucose logs. Return to Diabetes education for Omnipod 5 training Coding Level of Care Code Est Pt Level 1 (09997) Diagnoses Diabetes mellitus due to underlying condition, uncontrolled, with hyperglycemia, with long-term current use of insulin E08.65; Z79.4
== END 2025-09-04 07:56 | disposition home or self-care (01) ==
LOC: HO.ENCR 06:57
PROVIDERS: Visit Provider Registered Nurse Diabetes Educator
DX: E11.65 Type 2 diabetes mellitus with hyperglycemia (principal); Z79.4 Long term (current) use of insulin

== ENCOUNTER 2025-09-10 15:26 | Outpatient (AMB) | payer OTHER, SELFPAY ==
[2025-09-10 15:57] VITALS: BP 114/60; PULSE 54; RESP 16; TEMP 36.7; O2SAT 99
--- NOTE | 2025-09-10 15:57 | MHC.PC.OV ---
Vital Signs 09/10/25 15:57 Height 5 ft 2 in BMI Reason not done Patient refused/unable BP 114/60 Blood Pressure Location Rt brachial Position Sitting Respiration 16 Pulse 54 Pulse Source Pulse Oximeter Temp 98.0 F Temp Source Oral Pulse Oximetry (%) 99 Oxygen Delivery Method Room Air Intake Visit Reasons: Pulmonary assement Intake Note: Pt is here today request a pulmonary referral Paper Steamer Required: No Allergies No Known Allergies Allergy (Verified 09/10/25 16:40) Medication List - Last Reconciled 09/10/25 by Anel Barrera MD albuterol sulfate 90 mcg/actuation (Ventolin HFA) 2 puffs inhalation Q4-6H PRN atorvastatin 80 mg PO DAILY [Bath strips As directed] [bed rail As directed] [bed wedge As directed] blood sugar diagnostic (FreeStyle Lite Strips) As directed- checks 4 X/day blood-glucose meter (FreeStyle Lite Meter kit) As directed checks 4 X/dasy blood-glucose sensor (Zivity G7 Sensor device) Use daily As directed to monitor glucose. change q 10 days bupropion HCl XL 150 mg PO DAILY buspirone 15 mg PO BID ferrous sulfate (Iron (ferrous sulfate)) 325 mg PO DAILY furosemide 40 mg PO DAILY glucose (Dex4 Glucose) 16 grams (4 x 4 gram) PO Q15M PRN hydroxyzine HCl 10 mg PO BID PRN insulin glargine (Lantus Solostar U-100 Insulin) 16 units (0.16 mL) subcut QPM insulin lispro (Humalog KwikPen (U-100) Insulin) 8 units (0.08 mL) subcut TID isosorbide mononitrate ER 30 mg PO DAILY lancets (FreeStyle Lancets) As directed lidocaine 4% 1 patch topical BID metoprolol tartrate 25 mg PO BID multivitamin 1 tab PO DAILY pantoprazole 40 mg PO QAM pen needle, diabetic (BD Ultra-Fine Mini Pen Needle) As directed 4 times a day [Raised commode As directed] rivaroxaban (Xarelto) 2.5 mg PO BID ropinirole 0.25 mg PO BID [Safety bar For bathroom] ticagrelor 90 mg PO BID trazodone 50 mg PO BEDTIME PRN Tobacco use date assessed: 09/10/25 Dental Screening Dental Screen Date: 09/10/25 Did you have a dental visit in the last 12 months?: Yes Did you have a dental problem in the last 6 months where you did not have access to dental care?: No Was dental information given to patient?: Patient has dentist HPI Pulmonary assement HPI Details 60-year-old lady with past medical history of hypertension, hyperlipidemia, diabetes mellitus, coronary artery disease with an non STEMI with drug-eluting stent placement to RCA on 04/10/2025, complicated by stent thrombosis requiring thrombectomy and drug-eluting stent to OM1 on 04/12/2025, heart failure with EF 30%, peripheral vascular disease s/p right above-knee amputation, COPD, GERD, with left lower extremity ischemia s/p iliofemoral thrombectomy, recent embolic CVA , here today requesting assistance in quitting smoking. She sees smokes at least 3 cigarettes per day, has difficulty quitting on her own. She also has been experiencing intermittent episodes of heartburn symptoms described as a epigastric discomfort, usually after eating. Needs a refill on her furosemide [facility] Medical History History of CVA (cerebrovascular accident) Iron deficiency anemia History of opioid abuse Depression with anxiety Peripheral vascular disease Essential hypertension Cigarette smoker motivated to quit Uncontrolled type 2 diabetes mellitus with hyperglycemia Diabetes mellitus with nephropathy Annual visit for general adult medical examination with abnormal findings section wound complications Encounter to establish care Type II diabetes mellitus Diabetes COPD (chronic obstructive pulmonary disease) Surgical History History of above-knee amputation of right lower extremity Hx of cardiac cath H/O neck surgery History of mandibular surgery H/O foot surgery H/O hernia repair H/O section H/O angioplasty History of hysterectomy History of colonoscopy History of laparoscopic adjustable gastric banding S/P bilateral breast reduction S/P carpal tunnel release Status post cataract extraction Family History Sister Breast cancer Mother Breast cancer Substance use disorder Mental health disorder Brother Substance use disorder Brother Substance use disorder Sister No problems noted. 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 1. Little interest or pleasure in doing things: several days 2. Feeling down, depressed, or hopeless: several days 3. Trouble falling or staying asleep, or sleeping too much: several days 4. Feeling tired or having little energy: several days 5. Poor appetite or overeating: several days 6. Feeling bad about yourself - or that you are a failure or have let yourself or your family down: several days 7. Trouble concentrating on things, such as reading the newspaper or watching television: several days 8. Moving or speaking so slowly that other people could have noticed. Or the opposite - being so fidgety or restless that you have been moving around a lot more than usual: several days 9. Thoughts that you would be better off or of hurting yourself in some way: several days Total score: 9 Depression Screening Interpretation: Positive (Currently being treated by [facility]) Depression Screening Follow-up: Existing condition, In treatment and Community Mental Health Worker F/U Depression Screening Done: Yes Source: Developed by Drs. Jun Ceja, Anisa Goode, Sergey Vargas and colleagues, with an educational dakota from [employer]. Thrive Questionnaire Date Thrive assessed: 12/12/24 I am a: Patient What is your living situation today?: I have a steady place to live Within the past 12 months, did the food you bought not last and you didn't have the money to get more?: Never true Within the past 12 months, did you worry whether your food would run out before you got money to buy more?: Never true Do you have trouble paying for medicines?: No Do you have trouble getting transportation to medical appointments?: No Do you have trouble paying your heating and electricity bill?: I choose not to answer this question Do you have trouble taking care of your child, family member or friend?: No Do you have trouble with day-to-day activities such as bathing, preparing meals, shopping, managing finances, etc.?: Yes Are you currently unemployed and looking for a job?: No Are you interested in more education?: Yes Currently or been in a relationship where the following occur: I choose not to answer THRIVE Score: 0 AUDIT C Alcohol Use Questionnaire (AUDIT-C) 1. How often do you have a drink containing alcohol?: Never 3. How often do you have six or more drinks on one occasion?: Never Total Score: 0 STAS-7 AMB Questionnaire STAS-7 Date STAS - 7 assessed: 09/10/25 Feeling nervous, anxious, or on edge: 0 = Not at all Not being able to stop or control worryin = Not at all Worrying too much about different things: 0 = Not at all Trouble relaxin = Not at all Being so restless that it is hard to sit still: 0 = Not at all Becoming easily annoyed or irritable: 0 = Not at all Feeling afraid as if something awful might happen: 0 = Not at all Total STAS-7 score (0-4 normal; 5-9 mild; 10-14 moderate; 15-21 severe): 0 Source: Developed by Drs. Jun Ceja, Anisa Goode, Sergey Vargas and colleagues, with an educational dakota from [employer]. STAS-7 Assessment Billing STAS-7 Assessment Tool: STAS-7 Assessment 03233 Review of Systems Const Details: right AKA ENT Denies dizziness Card Denies chest pain, Denies rapid heart rate, Denies pedal edema, Denies lightheadedness, Denies palpitations and Reports dyspnea on exertion Resp Denies cough and Reports dyspnea on exertion GI Denies hematochezia and Denies change in stool character Reports no additional complaints Musc Details: in wheelchair Denies limited range of motion, Denies muscle weakness, Denies numbness, Denies stiffness and Denies tingling Neuro Denies dizziness, Denies numbness and Denies tingling Psych Reports no additional complaints Endo Denies palpitations Fantasma/Lymph Reports no additional complaints Physical exam (Primary Care) Vital Signs: Last Vital Signs Temp 98.0 F 09/10/25 15:57 Pulse 54 09/10/25 15:57 Resp 16 09/10/25 15:57 BP 114/60 09/10/25 15:57 Pulse Ox 99 09/10/25 15:57 Oxygen Delivery Method Room Air 09/10/25 15:57 Tobacco/Smoking Status: Tobacco use Status Tobacco use date assessed 09/10/25 09/10/25 16:09 Patient Tobacco Use Status Current someday Tobacco 09/10/25 16:00 Tobacco use type Cigarette 09/10/25 16:00 e-Cigarette/Vaping Use Never Used 09/10/25 16:00 PHQ-9: PHQ-9 Score PHQ-9: Total score 9 09/16/25 19:21 Depression Screening Interpretation: Positive (Currently being treated by [facility]) Depression Screening Follow-up: Existing condition, In treatment and Community Mental Health Worker F/U Thrive Assessment: Date of Thrive Assessment Date Thrive assessed 12/12/24 09/10/25 16:00 Currently or been in a relationship where the following occur: I choose not to answer Const General: cooperative and no acute distress Orientation/consciousness: patient oriented x3 Limitations: wheelchair HENMT Head: Yes normocephalic Mouth: oropharynx normal and moist mucous membranes Throat: Yes posterior oropharynx normal Neck Neck: Yes full ROM and Yes no lymphadenopathy Resp Effort & Inspection: normal respiratory effort and able to speak in complete sentences Cardio Rate: regular rate Rhythm: regular rhythm Heart sounds: S1 normal heart sound present and S2 normal heart sound present GI Palpation (GI): Soft to palpation, nontender and no guarding Auscultation: normal bowel sounds Skin General skin exam: no rashes or lesions noted Neuro General: patient oriented x3, tone normal and no focal motor deficits Extrem General: Yes full ROM, Yes amputation noted (right AKA) and Yes edema (trace LLE) Left lower extremity: no joint enlargement Psych Appearance: grossly normal and well kempt Mental Status: mental status grossly normal Speech and movement: Normal speech and movement present Affect: normal affect Coding Level of Care Code Est Pt Level 4 (64335) Diagnoses Peripheral vascular disease I73.9 GERD (gastroesophageal reflux disease) K21.9 Cigarette smoker motivated to quit F17.210 Additional Codes STAS-7 Assessment Billing - STAS-7 Assessment Tool: STAS-7 Assessment 35249 ([id number]) Assessment & Plan Assessment & Plan (1) Peripheral vascular disease: Comment: ff;d at [facility] vascular clinic Code(s): I73.9 - Peripheral vascular disease, unspecified Category: Medical Plan: Refill sent for furosemide 40 mg daily (2) GERD (gastroesophageal reflux disease): Code(s): K21.9 - Gastro-esophageal reflux disease without esophagitis Category: Medical Plan: Pantoprazole prescription sent 40 mg take once a day as needed for heartburn symptoms , advised to follow-up with GI if symptoms persists despite taking medication (3) Cigarette smoker motivated to quit: Code(s): F17.210 - Nicotine dependence, cigarettes, uncomplicated Category: Social Hx Plan: Prescription sent for nicotine patch 7 mg per patch applied to upper arm or chest or upper back, rotate sites of application, remove patch at bedtime prior to sleeping. Do Not smoke when using the patch. Follow-up in 4 weeks Medications: New nicotine 1 patch transdermal Q24H 30 ea 0RF pantoprazole 40 mg PO QAM 30 tabs 0RF Changed From furosemide 40 mg PO DAILY To furosemide 40 mg PO DAILY PRN 30 tabs 0RF edema
--- OUTSIDE RECORDS SUMMARY | 2025-09-10 18:26 | XMS_ITS | Data Portability ---
Author Organization [employer] [facility], [facility] Address [address] [place] [id number] Care Team Providers Care Machinist General Name Role Phone [facility] Referring Provider Assessment Encounter Date Assessment Date Assessment LastModified by Organization Details LastModified Time 11/08/2023 11/08/2023 As noted, we were called to see this patient regarding concerns of wound healing. Evaluation in the field was performed by my substation electrician colleague, as noted above, I provided real-time [...] ICD10 Code Diagnosis IMO Codes Diagnosis Note [id number] JOSE ROBERTO DUNCAN MD Main - [address] [address] 11/08/2023 14:28:29 11/09/2023 10:52:40 Post-surgical wound care [id number] Z48.01 Health Concerns Section Related Observation LastModified by Organization Detai ls LastModified Time None Recorded Concern Status LastModified by Organization Details LastModified Time None Recorded Advance Directives Directive None Recorded Payers Insurance Date Sequence Insurance Name Policy Number Policy Lane Covered Member ID Lane Member ID Guarantor Name 05/12/2024 1 [facility] - DOS ON OR AFTER 2023 - DUAL ELIGIBLE - LONG-TERM OPTIONS AND ONE CARE (MEDICARE REPLACEMENT/ADV ANTAGE - HMO) Shama Amy [id number] Shama Reyes Notes Date Note Type Note [...] .................. .................. .................. .................. .................. .................. ............... Pipe Stem Repairer Note From Bubba Willy: Pt reports that [...] Disposition: Demi DUNCAN MD [address] [facility],[address], [place], [address], [employer] 11/08/2023 14:47:14 OBGyn Episode No OBEpisode recorded.
--- OUTSIDE RECORDS SUMMARY | 2025-09-10 18:26 | XMS_ITS | Clinical Summary ---
Author Organization [facility] Address [address] [place] [address] Phone Care Team Providers Care Banking Center Manager Name Role Phone Anel Barrera MD Primary Care Provider [phone] Allergies Active Allergy Reactions Criticality Noted Date [...] Problem Noted Date Diagnosed Date Cerebrovascular accident ([facility] V24, [facility] V 28) 05/17/2025 Polysubstance abuse ([facility] V24, [facility] V28) 0 01/23/2021 Overview (09/29/2024): Using IV [...] Overdose of opiate or relate d narcotic ([facility] V24, [facility] V28) 04/06/2018 Overview (09/29/2024): 04/06/2018 Microalbuminuria 03/15/2018 Bipolar 1 disorder ([facility] V24, [facility] V28) Carpal tunnel syndrome 02/25/2018 Overview (09/29/2024): S/p release 2014 Hyperlipidemia associated wi th type 2 diabetes mellitus ([facility] V24, [facility] V28) 02/25/2018 Diabetic peripheral neuropathy ([facility] V24, [facility] V28) 02/25/2018 Diabetes mellitus type 2 wit h neurological manifestations ([facility] V24, [facility] V28) 11/07/2014 Nuclear sclerosis 10/30/2014 Overview (09/29/2024): Dr Kaur note 01-24-2009 Shoulder impingement syndrome 10/30/2014 Overview (09/29/2024): Tammy Singer note 02-19-2014 HTN (hypertension), benign 02/19/2009 Necrobiosis lipoidica diabet icorum ([facility] V24, [facility] V28) 02/01/2009 Posttraumatic stress disorder 07/16/2006 Type 2 diabetes mellitus ([facility] V24, [facility] V 28) 10/01/2005 Immunizations Immunization Administration Dates [...] HERNIA REPAIR/ING OTHER SURGICAL HISTORY 04/2009 PROCEDURE: [place] LAPS GASTRIC RESTRICTIVE PROCEDURE PLACE DEVICE; COMMENT: [facility] Dr Briscoe 224lbs starting wt HAND SURGERY PROCEDURE: HISTORICAL HAND SURGERY; COMMENT: Bilateral carpal tunnel release HERNIA REPAIR PROCEDURE: HISTORICAL HERNIA REPAIR/ING SECTION PROCEDURE: HISTORICAL ; COMMENT: x 2 BREAST REDUCTION 1980 Bilateral PROCEDURE: [place] BREAST REDUCTION COLONOSCOPY 07/02/2021 PROCEDURE: HISTORICAL COLONOSCOPY; COMMENT: polyp Medical History Medical History Date Comments Bipolar 1 disorder ([facility] V24, [facility] V28) 02/25/2018 DX:Bipolar 1 disorder (HCC) Diabetes mellitus type 2 wit h neurological manifestations ([facility] V24, [facility] V28) 11/07/2014 DX:Diabetes mellitus type 2 with neurological manifestations (HCC) Diabetic peripheral neuropat hy ([facility] V24, [facility] V28) 02/25/2018 DX:Diabetic peripheral neur opathy (HCC) Type 2 diabetes mellitus wit h diabetic retinopathy ([facility] V24, [facility] V28) 10/01/2005 DX:Type 2 diabe noel mellitus with diabetic retinopathy (HCC) HTN (hypertension), benign 02/19/2009 DX:HT N (hypertension), benign Hyperlipidemia associated wi th type 2 diabetes mellitus ([facility] V24, [facility] V28) 02/25/2018 DX:Hyperlipidemia associated with type 2 diabetes mellitus (HCC) Necrobiosis lipoidica diabet icorum ([facility] V24, [facility] V28) 02/01/2009 DX:Necrobiosis lipoidica diabeticorum (HCC) Nuclear sclerosis 10/30/2014 DX:Nuclear scl erosis; COMMENT: Dr Kaur note 01-24-2009 Posttraumatic stress disorder 07/16/2006 DX :Posttraumatic stress disorder Shoulder impingement syndrome 10/30/2014 DX :Shoulder impingement syndrome; COMMENT: Tammy Singer note 02-19-2014 Tobacco abuse 03/14/2018 DX:Tobacco abuse Carpal tunnel syndrome 02/25/2018 DX:Carpal tunnel syndrome; COMMENT: S/p release 2014 Type 2 diabetes with nephrop athy ([facility] V24, [facility] V28) 03/15/2018 DX:Type 2 diabetes with nep hropathy (HCC) Microalbuminuria 03/15/2018 DX:Microalbumin uria Overdose of opiate or relate d narcotic ([facility] V24, [facility] V28) 04/06/2018 DX:Overdose of opiate or re lated narcotic ([facility]); COMMENT: 04/06/2018 Positive urine drug screen 09/05/2018 [...] macular edema, bilateral (CMS/HCC V24, CMS/HCC V28) emt intermediate (current) use of insulin ([facility]/HCC V24, [facility] V28) HPV Routine 01/17/2019 HEPATITIS C SCREENING Routine 09/09/2018 HIV SCREENING Routine 03/22/2006 from Last 3 Months or Most Recently Relevant to Health Maintenance Results * (ABNORMAL) Basic metabolic panel (05/23/2025 12:22 PM EDT) Sodium 135 133 - 145 mmol/L LAB CHEMISTRY METHOD 05/23/2025 1:59 PM [facility] Potassium 4.3 3.5 - 5.5 mmol/L LAB CHEMISTRY METHOD 05/23/2025 1:59 PM [facility] Chloride 107 96 - 110 mmol/L LAB CHEMISTRY METHOD 05/23/2025 1:59 PM [facility] CO2 21 21 - 32 mmol/L LAB CHEMISTRY METHOD 05/23/2025 1:59 PM [facility] Anion Gap 7 3 - 11 LAB CHEMISTRY METHOD 05/23/2025 1:59 PM [facility] Glucose 225(H) 70 - 100 mg/dL LAB CHEMISTRY METHOD 05/23/2025 1:59 PM [facility] BUN 23 5 - 25 mg/dL LAB CHEMISTRY METHOD 05/23/2025 1:59 PM [facility] Creatinine 1.35(H) 0.50 - 1.10 mg/dL LAB CHEMISTRY METHOD 05/23/2025 1:59 PM [facility] eGFR 45(L) >=60 mL/min/1. 73m2 LAB CHEMISTRY METHOD 05/23/2025 1:59 PM [facility] Comment:Calculation based on the Chronic Kidney Disease Epidemiology Collaboration (CKD-EPI) equation refit without adjustment for race. BUN/Creatinine Ratio 17.0 LAB CHEMISTRY METHOD 05/23/2025 1:59 PM EDT [facility] Calcium 8.4(L) 8.5 - 10.5 mg/dL LAB CHEMISTRY METHOD 05/23/2025 1:59 PM EDT [facility] Blood Venous blood specimen / Unknown Venipuncture / Unknown 05/23/2025 12:22 PM EDT 05/23/2025 12:30 PM EDT Carmen MERRILL LAB BLOOD ORDERABLES Final R esult [facility] [address] [place] [address], [place] [phone] * (ABNORMAL) Hemoglobin A1c (09/22/2021) [facility] Hemoglobin A1C 7.2(A) <=6.5 % Blood Venous blood specimen / Unknown Result [facility] Historical Provider LAB BLOOD ORDERABLES Stephie l Result * Urine Albumin Creatinine Ratio (08/05/2021) [facility] Urine Albumin Creatinine Ratio Abstracted Result [facility] Historical Provider HEALTH MAINTENANCE Final Result * Lipid panel (08/05/2021) [facility] LDL/HDL Ratio 2 0 - 4 Triglycerides 115 0 - 150 mg/dL Cholesterol 154 0 - 200 mg/dL HDL 67 >=40 mg/dL LDL Cholesterol 64 0 - 100 mg/dL Blood Venous blood specimen / Unknown Result [facility] Historical Provider LAB BLOOD ORDERABLES Stephie l Result * Colonoscopy (07/02/2021) [facility] Colonoscopy No interpreta tion,abstr acted Anatomical Region [...] * Cervical Cancer Screening: HPV (01/17/2019) [facility] Cervical Cancer Screening: HPV Negative Abstracted Historical Provider [facility] MAINTENANCE Final Result * Hepatitis C Screening (09/09/2018) [facility] Hepatitis C Screening Abstracted us Historical Provider HEALTH MAINTENANCE Final Result * HIV Screening (03/22/2006) HIV Screening Abstracted Historical Provider HEALTH MAINTENANCE Final Result from Last 3 Months or Most Recently Relevant to Health Maintenance Insurance [facility] MEDICARE Member Subscriber Plan / Payer (Ef fective 2022-Present) Name:RASHAWNSHAMA THOMPSON Relation to Subscriber:Self Name:AmyShamaLeydi Payer ID:[id number] Group ID:[id number] Type:Not on file Address: [place] [address] [place] [address] Advance Directives Documents on File Type Date Recorded 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 Care Teams Banking Center Manager Relationship Specialty Start Date End Date Anel Barrera MD [address] [place] [address] PCP - General Internal Medicine 05/18/25
== END 2025-09-10 16:55 | disposition home or self-care (01) ==
LOC: HO.HMCC 15:27
PROVIDERS: Visit Provider Internal Medicine
DX: I73.9 Peripheral vascular disease, unspecified (principal); K21.9 Gastro-esophageal reflux disease without esophagitis; F17.210 Nicotine dependence, cigarettes, uncomplicated

== ENCOUNTER → 2025-09-10 15:26 | Outpatient (BNVA) | payer OTHER, SELFPAY | PROVIDERS: Visit Provider Internal Medicine | DX: E11.51 Type 2 diabetes mellitus with diabetic peripheral angiopathy without gangrene (principal); I10 Essential (primary) hypertension; K21.9 Gastro-esophageal reflux disease without esophagitis; F17.210 Nicotine dependence, cigarettes, uncomplicated | CPT/HCPCS: 96127; 99212 ==

== ENCOUNTER 2025-09-25 15:02 | Outpatient (AMB) | payer OTHER, SELFPAY ==
--- OUTSIDE RECORDS SUMMARY | 2024-04-10 08:00 | XMS_ITS ---
[facility] Organization [facility] Address [address] [place] [address] Care Team Providers Care Inspector Cold Working Name Role Phone Bruce ANDREW, Anel Irene Primary Care Provider Un available Sheela Day Unavailable [phone] Jun Goss Unavailable Unavailable REASON FOR VISIT DR HOLLIS Encounters Encounter Location Date Provider Diagnosis [address] [address] 04/10/2024 Sheela Day Plan Of Treatment No Information Progress Notes * Shama ANAND ADOB:1965 (60 yo F)Acc No.[id number]:04/10/2024 Progress Note Patient: Shama ARTEAGA Provider: Shukri Day DPM :1965 A ge:58 Y S ex:Female Date:04/10/2024 Address:[address] [place], [place] [id number] Pcp:Suman Alas Subjective: * Chief Complaints: * [address] HOLLIS[address] * Medical History: Objective: * Vitals: Assessment: Plan: * Treatment: * Images: * The named appointment provid er may or may not be the originator of this progress note, and it is not deemed complete until electronically signed by the appointment provider. Sign off status: Pending * Provider: Shukri Day DPM Date: 0 04/10/2024 Generated for Printi ng/Faxing/eTransmitting on: 1 11/26/2024 07:22 PM EST
--- OUTSIDE RECORDS SUMMARY | 2024-04-17 05:00 | XMS_ITS ---
Author Organization [facility] Address [address] [facility] [place] [address] Care Team Providers Care Casework Specialist Name Role Phone Bruce ANDREW, Anel Irene Primary Care Provider Un available Sheela Day Unavailable [phone] Jun Goss Unavailable Unavailable Encounters Encounter Location Date Provider Diagnosis [address] [address] 04/17/2024 Sheela Day Plan Of Treatment No Information Progress Notes * Shama ANAND ADOB:1965 (60 yo F)Acc No.[id number]:04/17/2024 Progress Note Patient: Shama ARTEAGA Provider: Shukri Day DPM :1965 A ge:58 Y S ex:Female Date:04/17/2024 Address:[address] [place], [place] [phone] Pcp:Suman Alas Subjective: * Chief Complaints: * [...] 04/17/2024 Generated for Madinai teri/Ricardo/eTransmitting on: 1 11/26/2024 07:22 PM EST
--- OUTSIDE RECORDS SUMMARY | 2024-08-07 09:30 | XMS_ITS ---
Author Organization [facility] Address [address] [facility] [place] [address] Care Team Providers Care Ice Cream Freezer Name Role Phone Bruce ANDREW, Anel Irene Primary Care Provider Un available Sheela Day Unavailable [phone] Jun Goss Unavailable Unavailable Encounters Encounter Location Date Provider Diagnosis [address] [address] 08/07/2024 Sheela Day Plan Of Treatment No Information Progress Notes * Shama ANAND ADOB:1965 (60 yo F)Acc No.[id number]:08/07/2024 Progress Note Patient: Shama ARTEAGA Provider: Shukri Day DPM :1965 A ge:59 Y S ex:Female Date:08/07/2024 Address:[address] [place], [place] [id number] Pcp:Suman Alas Subjective: * Chief Complaints: * * Medical History: Objective: * Vitals: Assessment: Plan: * Treatment: * Images: * The named appointment provid er may or may not be the originator of this progress note, and it is not deemed complete until electronically signed by the appointment provider. Sign off status: Pending * Provider: Shukri Day DPM Date: Generated for Madinai teri/Fajuliag/eTransmitting on: 11/26/2024 07:22 PM EST
--- OUTSIDE RECORDS SUMMARY | 2024-09-04 08:00 | XMS_ITS ---
Author Organization [facility] Address [address] [facility] [place] [address] Care Team Providers Care Medical Donation Professional Name Role Phone Bruce ANDREW, Anel Irene Primary Care Provider Un available Sheela Day Unavailable [phone] Jun Goss Unavailable Unavailable Encounters Encounter Location Date Provider Diagnosis [address] [address] 09/04/2024 Sheela Day Plan Of Treatment No Information Progress Notes * Shama ANAND ADOB:1965 (60 yo F)Acc No.[id number]:09/04/2024 Progress Note Patient: Shama ARTEAGA Provider: Shukri Day DPM :1965 A ge:59 Y S ex:Female Date:09/04/2024 Address:[address] [place], [place] [phone] Pcp:Suman Alas Subjective: * Chief Complaints: * * Medical History: Objective: * Vitals: Assessment: Plan: * Treatment: * Images: * The named appointment provid er may or may not be the originator of this progress note, and it is not deemed complete until electronically signed by the appointment provider. Sign off status: Pending * Provider: Shukri Day DPM Date: 11/04/2023 Generated for Madinai teri/Ricardo/eTransmitting on: 11/26/2024 07:22 PM EST
--- NOTE | 2025-09-25 15:43 | MHC.AMDMED ---
Intake Intake Visit Reasons: MyDentistipDataPop 5 training Senior Care Provider Required: No Accompanied by: Daughter Allergies No Known Allergies Allergy (Verified 09/10/25 16:40) HPI Comprehensive Diabetes Asmnt Most Recent Diabetes Results: Cholesterol, (<200) 115 mg/dL 09/04/25 HDL Cholesterol, (>40) 60 mg/dL 09/04/25 Triglycerides, (<150) 101 mg/dL 09/04/25 Creatinine, (0.5-1.4) 1.42 mg/dL H 09/04/25 BUN, (9-16) 17 mg/dL H 09/04/25 Sodium, (135-145) 141 mmol/L 09/04/25 Potassium, (3.3-5.1) 4.5 mmol/L 09/04/25 Chloride, (96-108) 108 mmol/L 09/04/25 Carbon Dioxide, (22-29) 27 mmol/L 09/04/25 Calcium, (8.4-10.2) 8.7 mg/dL 09/04/25 [facility] Medical History History of CVA (cerebrovascular accident) Iron deficiency anemia History of opioid abuse Depression with anxiety Peripheral vascular disease Essential hypertension Cigarette smoker motivated to quit Uncontrolled type 2 diabetes mellitus with hyperglycemia Diabetes mellitus with nephropathy Annual visit for general adult medical examination with abnormal findings section wound complications Encounter to establish care Type II diabetes mellitus Diabetes COPD (chronic obstructive pulmonary disease) Surgical History History of above-knee amputation of right lower extremity Hx of cardiac cath H/O neck surgery History of mandibular surgery H/O foot surgery H/O hernia repair H/O section H/O angioplasty History of hysterectomy History of colonoscopy History of laparoscopic adjustable gastric banding S/P bilateral breast reduction S/P carpal tunnel release Status post cataract extraction Family History Sister Breast cancer Mother Breast cancer Substance use disorder Mental health disorder Brother Substance use disorder Brother Substance use disorder Sister No problems noted. 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 The following topics were reviewed today: -Pump therapy basic concepts: Basal/bolus, insulin to carb ratio, correction factor, insulin on board -Device settings: Bluetooth/mobile connection (if applicable), correct date and time, sound volume -CGM settings(if integrated system): CGM graft views and trend arrows, alerts and alarms, Start new sensor Insulin delivery settings Program insulin to carb ratio, correction factor, target blood glucose, suspend or resume insulin delivery, bolus limit and basal limit settings At today's visit we are unable to complete pump training, patient did not get message to bring insulin to today's pump training visit. Patient has follow-up visit on 09/26/2025 to complete pod set up and insulin pump training Safety information: Importance of a backup plan, for manual injections, proper prescriptions and emergency supplies ketone strips, and rules for testing for ketones Patient was able to insert insulin set today without difficulty. Patient understands the basic concepts of pump therapy, how to give insulin for meals and snacks, how to troubleshoot for hyper and hypoglycemia. Setting verified by [facility] Basal rate(s) (units/hour) : 12 AM to 12 AM 0.65 units / hr Bolus setting Insulin Carbohydrate Ratio (s) 12 AM to 12 AM 1:11 Correction Factor / Sensitivity Factor 12 AM to 12 AM 1:38 Active Insulin Time:? 3 hours Target(s): 12 AM to 12 AM 110 mg/dL Correction threshold 12 AM to 12 AM 110 mg/dL Patient will follow up with [facility] as instructed Patient will contact [facility] with questions or concerns, patient given IT number to support in any technical issues related to insulin pump Portions of this note were created using voice recognition software, please excuse any words or phrases that may have been misinterpreted. Coding Level of Care Code Est Pt Level 1 (04326) Diagnoses Diabetes mellitus due to underlying condition, uncontrolled, with hyperglycemia, with long-term current use of insulin E08.65; Z79.4
--- OUTSIDE RECORDS SUMMARY | 2025-09-25 19:23 | XMS_ITS | Data Portability ---
Author Organization [employer] [facility], [facility] Address [address] [place] [id number] Care Team Providers Care Mammography Technologist Name Role Phone [facility] Referring Provider [phone] Assessment Encounter Date Assessment Date Assessment LastModified by Organization Details LastModified Time 11/08/2023 11/08/2023 As noted, we were called to see this patient regarding concerns of wound healing. Evaluation in the field was performed by my grade teacher colleague, as noted above, I provided real-time [...] ICD10 Code Diagnosis IMO Codes Diagnosis Note [id number] JOSE ROBERTO DUNCAN MD Main - [address] [address] 11/08/2023 14:28:29 11/09/2023 10:52:40 Post-surgical wound care [id number] Z48.01 Health Concerns Section Related Observation LastModified by Organization Detai ls LastModified Time None Recorded Concern Status LastModified by Organization Details LastModified Time None Recorded Advance Directives Directive None Recorded Payers Insurance Date Sequence Insurance Name Policy Number Policy Lane Covered Member ID Lane Member ID Guarantor Name 05/12/2024 1 [facility] - DOS ON OR AFTER 2023 - DUAL ELIGIBLE - FDC OPTIONS AND ONE CARE (MEDICARE REPLACEMENT/ADV ANTAGE - HMO) Shama Amy [id number] Shama Reyes Notes Date Note Type Note [...] .................. .................. .................. .................. .................. .................. ............... Receipt And Report Clerk Note From Bubba Willy: Pt reports that [...] ............... Disposition: Demi DUNCAN MD [address] [facility],[address], [place], [address], Aura XM 11/08/2023 14:47:14 OBGyn Episode No OBEpisode recorded.
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
--- OUTSIDE RECORDS SUMMARY | 2025-09-25 19:23 | XMS_ITS | Clinical Summary ---
Author Organization [facility] Address [address] [place] [address] Phone Care Team Providers Care Slp Teacher Name Role Phone Anel Barrera MD Primary [...] 2 (two) times a day. 60 each 11 5 05/24/20 26 Active rivaroxaban (XARELTO) 2.5 [...] Problem Noted Date Diagnosed Date Cerebrovascular accident 05/17/2025 Polysubstance abuse 01/23/2021 Overview (09/29/2024): Using IV drugs as [...] 07/2108 Overdose of opiate or related narcotic 8 Overview (09/29/2024): 04/06/2018 Microalbuminuria 03/15/2018 Bipolar 1 disorder 02/25/2018 Carpal tunnel syndrome 02/25/2018 Overview (09/29/2024): S/p release 2014 Hyperlipidemia associated with type 2 diabetes m ellitus 02/25/2018 Diabetic peripheral neuropathy 02/25/2018 Diabetes mellitus type 2 with neurological manif estations 11/07/2014 Nuclear sclerosis 10/30/2014 Overview (09/29/2024): Dr Kaur note 01-24-2008 Shoulder impingement syndrome 10/30/2014 Overview (09/29/2024): Tammy Singer note 02-19-2014 HTN (hypertension), benign 02/19/2009 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 Posttraumatic stress disorder 07/16/2006 Type 2 diabetes mellitus 10/01/2005 Immunizations Immunization Administration Dates Next Due [...] HERNIA REPAIR/ING OTHER SURGICAL HISTORY 04/2009 PROCEDURE: [place] LAPS GASTRIC RESTRICTIVE PROCEDURE PLACE DEVICE; COMMENT: [facility] Dr Briscoe 224lbs starting wt HAND SURGERY PROCEDURE: HISTORICAL HAND SURGERY; COMMENT: Bilateral carpal tunnel release HERNIA REPAIR PROCEDURE: HISTORICAL HERNIA REPAIR/ING SECTION PROCEDURE: HISTORICAL ; COMMENT: x 2 BREAST REDUCTION 1980 Bilateral PROCEDURE: NV BREAST REDUCTION COLONOSCOPY 07/02/2021 PROCEDURE: HISTORICAL COLONOSCOPY; COMMENT: polyp Medical History Medical History Date Comments Bipolar 1 disorder ([facility] V24, [facility] V28) 02/25/2018 DX:Bipolar 1 disorder (HCC) Diabetes mellitus type 2 wit h neurological manifestations ([facility] V24, [facility] V28) 11/07/2014 DX:Diabetes mellitus type 2 with neurological manifestations (HCC) Diabetic peripheral neuropat hy ([facility] V24, [facility] V28) 02/25/2018 DX:Diabetic peripheral neur opathy (HCC) Type 2 diabetes mellitus wit h diabetic retinopathy ([facility] V24, [facility] V28) 10/01/2005 DX:Type 2 diabe noel mellitus with diabetic retinopathy (HCC) HTN (hypertension), benign 02/19/2009 DX:HT N (hypertension), benign Hyperlipidemia associated wi th type 2 diabetes mellitus ([facility] V24, [facility] V28) 02/25/2018 DX:Hyperlipidemia associated with type 2 diabetes mellitus (HCC) Necrobiosis lipoidica diabet icorum ([facility] V24, [facility] V28) 02/01/2009 DX:Necrobiosis lipoidica diabeticorum (HCC) Nuclear sclerosis 10/30/2014 DX:Nuclear scl erosis; COMMENT: Dr Kaur note 01-24-2009 Posttraumatic stress disorder 07/16/2006 DX :Posttraumatic stress disorder Shoulder impingement syndrome 10/30/2014 DX :Shoulder impingement syndrome; COMMENT: Tammy Singer note 02-19-2014 Tobacco abuse 03/14/2018 DX:Tobacco abuse Carpal tunnel syndrome 02/25/2018 DX:Carpal tunnel syndrome; COMMENT: S/p release 2014 Type 2 diabetes with nephrop athy ([facility] V24, [facility] V28) 03/15/2018 DX:Type 2 diabetes with nep hropathy ([facility]) Microalbuminuria 03/15/2018 DX:Microalbumin uria Overdose of opiate or relate d narcotic ([facility] V24, [facility] V28) 04/06/2018 DX:Overdose of opiate or re lated narcotic ([facility]); COMMENT: 04/06/2018 Positive urine drug screen [...] Anemia of chronic disease 09/07/2018 Cerebrovascular accident ( S/[facility] V24, [facility] V28) 05/17/2025 Family History Medical History Relation [...] not to disclose 2024 11:33 AM EDT Last Filed Vital Signs Vital Sign [...] 12:22 PM EDT HEMOGLOBIN A1C Routine 09/22/2021 URINE ALBUMIN CREATININE RATIO Routine 08/05/2021 LIPID PANEL Routine 08/05/2021 COLONOSCOPY Routine 07/02/2021 SCREENING MAMMOGRAPHY BI 2-VIEW BREAST INC CAD Routine 05/01/2021 4:43 PM EDT Encounter for immunization Type 2 diabetes mellitus with mild nonproliferative diabetic retinopathy without macular edema, bilateral (CMS/HCC V24, CMS/HCC V28) 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 (CMS/HCC V24, CMS/HCC V28) HPV Routine 01/17/2019 HEPATITIS C SCREENING Routine 09/09/2018 HIV SCREENING Routine 03/22/2006 from Last 3 Months or Most Recently Relevant to Health Maintenance Results * (ABNORMAL) Basic metabolic panel (05/23/2025 12:22 PM EDT) Sodium 135 133 - 145 mmol/L LAB CHEMISTRY METHOD 05/23/2025 1:59 PM [facility] Potassium 4.3 3.5 - 5.5 mmol/L LAB CHEMISTRY METHOD 05/23/2025 1:59 PM [facility] Chloride 107 96 - 110 mmol/L LAB CHEMISTRY METHOD 05/23/2025 1:59 PM [facility] CO2 21 21 - 32 mmol/L LAB CHEMISTRY METHOD 05/23/2025 1:59 PM [facility] Anion Gap 7 3 - 11 LAB CHEMISTRY METHOD 05/23/2025 1:59 PM [facility] Glucose 225(H) 70 - 100 mg/dL LAB CHEMISTRY METHOD 05/23/2025 1:59 PM [facility] BUN 23 5 - 25 mg/dL LAB CHEMISTRY METHOD 05/23/2025 1:59 PM [facility] Creatinine 1.35(H) 0.50 - 1.10 mg/dL LAB CHEMISTRY METHOD 05/23/2025 1:59 PM [facility] eGFR 45(L) >=60 mL/min/1. 73m2 LAB CHEMISTRY METHOD 05/23/2025 1:59 PM [facility] Comment:Calculation based on the Chronic Kidney Disease Epidemiology Collaboration (CKD-EPI) equation refit without adjustment for race. BUN/Creatinine Ratio 17.0 LAB CHEMISTRY METHOD 05/23/2025 1:59 PM [facility] Calcium 8.4(L) 8.5 - 10.5 mg/dL LAB CHEMISTRY METHOD 05/23/2025 1:59 PM [facility] Blood Venous blood specimen / Unknown Venipuncture / Unknown 05/23/2025 12:22 PM EDT 05/23/2025 12:30 PM EDT Carmen MERRILL LAB BLOOD ORDERABLES Final R esult [facility] ([facility]) [facility] [address] [place] [address], * (ABNORMAL) Hemoglobin A1c (09/22/2021) Pathologist [facility] Hemoglobin A1C 7.2(A) <=6.5 % Blood Venous blood specimen / Unknown Historical Provider LAB BLOOD ORDERABLES Stephie l Result * Urine Albumin Creatinine Ratio (08/05/2021) [facility] Urine Albumin Creatinine Ratio Abstracted [facility] Provider HEALTH MAINTENANCE Final Result * Lipid panel (08/05/2021) [facility] LDL/HDL Ratio 2 0 - 4 Triglycerides 115 0 - 150 mg/dL Cholesterol 154 0 - 200 mg/dL HDL 67 >=40 mg/dL LDL Cholesterol 64 0 - 100 mg/dL Blood Venous blood specimen / Unknown [facility] Provider LAB BLOOD ORDERABLES Stephie l Result * Colonoscopy (07/02/2021) Pathologist Counts include 234 beds at the [facility] Colonoscopy No interpreta tion,abstr acted Anatomical Region Laterality Modality Other [facility] Provider HEALTH MAINTENANCE Final Result * SCREENING [...] lt * Cervical Cancer Screening: HPV (01/17/2019) [facility] Cervical Cancer Screening: HPV Negative Abstracted [facility] Provider HEALTH MAINTENANCE Final Result * Hepatitis C Screening (09/09/2018) [facility] Hepatitis C Screening Abstracted Historical Provider HEALTH MAINTENANCE Final Result * HIV Screening (03/22/2006) [facility] HIV Screening Abstracted Result [facility] Historical Provider HEALTH MAINTENANCE Final Result from Last 3 Months or Most Recently Relevant to Health Maintenance Insurance [employer] MEDICARE Member Subscriber Plan / Payer (Ef fective 2022-Present) Name:SHAMA ANAND Relation to Subscriber:Self Name:Shama Anand Payer ID:[id number] Group ID:[id number] Type:Not on file Address: [address] [address] [place] [id number] Advance Directives Documents on File Type Date Recorded Patient [place] Operator Expl anation Advance Directives and Living Will [...] currently active code status orders. Care Teams Slp Teacher Relationship Specialty Start Date End Date Anel Barrera MD [address] [facility] [place] [address] PCP - General Internal Medicine 05/18/25
== END 2025-09-25 15:45 | disposition home or self-care (01) ==
LOC: HO.ENCR 15:03
PROVIDERS: PCP Internal Medicine; Visit Provider Registered Nurse Diabetes Educator
DX: E11.65 Type 2 diabetes mellitus with hyperglycemia (principal); Z79.4 Long term (current) use of insulin

== ENCOUNTER → 2025-09-25 15:02 | Outpatient (BNVA) | payer OTHER, SELFPAY | PROVIDERS: PCP Internal Medicine; Visit Provider Registered Nurse Diabetes Educator | DX: Z46.81 Encounter for fitting and adjustment of insulin pump (principal); E08.65 Diabetes mellitus due to underlying condition with hyperglycemia; Z79.4 Long term (current) use of insulin | CPT/HCPCS: 99211 ==

== ENCOUNTER 2025-09-26 08:08 | Outpatient (AMB) | payer OTHER, SELFPAY ==
--- OUTSIDE RECORDS SUMMARY | 2024-04-10 08:00 | XMS_ITS ---
Author Organization [facility] Address [address] [facility] [place] [address] Care Team Providers Care Load Out Person Name Role Phone Bruce ANDREW, Anel Irene Primary Care Provider Un available Sheela Day Unavailable [phone] Jun Goss Unavailable Unavailable REASON FOR VISIT DR HOLLIS Encounters Encounter Location Date Provider Diagnosis [address] [address] 04/10/2024 Sheela Day Plan Of Treatment No Information Progress Notes * Shama ANAND ADOB:1965 (60 yo F)Acc No.[id number]:04/10/2024 Progress Note Patient: Shama ARTEAGA Provider: Shukri Day DPM :1965 A ge:58 Y S ex:Female Date:04/10/2024 Address:[address] [place], [place] [id number] Pcp:Suman Alas Subjective: * Chief Complaints: * [...] 04/10/2024 Generated for Printi ng/Faxing/eTransmitting on: 1 11/27/2024 08:14 AM EST
--- OUTSIDE RECORDS SUMMARY | 2024-04-17 05:00 | XMS_ITS ---
Author Organization [facility] Address 81 [facility] [place] [address] Care Team Providers Care Msws Name Role Phone Bruce ANDREW, Anel Irene Primary Care Provider Un available Sheela Day Unavailable [phone] Jun Goss Unavailable Unavailable Encounters Encounter Location Date Provider Diagnosis [address] [address] 04/17/2024 Sheela Day Plan Of Treatment No Information Progress Notes * Shama ANAND ADOB:1965 (60 yo F)Acc No.[id number]:04/17/2024 Progress Note Patient: Shama ARTEAGA Provider: Shukri Day DPM :1965 A ge:58 Y S ex:Female Date:04/17/2024 Address:[address] [place], [place] [phone] Pcp:Suman Alas Subjective: * Chief Complaints: * * Medical History: Objective: * Vitals: Assessment: Plan: * Treatment: * Images: * The named appointment provid er may or may not be the originator of this progress note, and it is not deemed complete until electronically signed by the appointment provider. Sign off status: Pending * Provider: Shukri Day DPM Date: 0 04/17/2024 Generated for Madinai teri/Ricardo/eTransmitting on: 1 11/27/2024 08:14 AM EST
--- OUTSIDE RECORDS SUMMARY | 2024-08-07 09:30 | XMS_ITS ---
Author Organization [facility] Address [address] [facility] [place] [address] Care Team Providers Care Seo Consultant Name Role Phone Bruce ANDREW, Anel Irene Primary Care Provider Un available Sheela Day Unavailable [phone] Jun Goss Unavailable Unavailable Encounters Encounter Location Date Provider Diagnosis [address] [address] 08/07/2024 Sheela Day Plan Of Treatment No Information Progress Notes * Shama ANAND ADOB:1965 (60 yo F)Acc No.[id number]:08/07/2024 Progress Note Patient: Shama ARTEAGA Provider: Shukri Day DPM :1965 A ge:59 Y S ex:Female Date:08/07/2024 Address:[address] [place], [place] [id number] Pcp:Suman Alas Subjective: * Chief Complaints: * [...] DPM Date: Generated for Madinai teri/Ricardo/eTransmitting on: 11/27/2024 08:14 AM EST
--- OUTSIDE RECORDS SUMMARY | 2024-09-04 08:00 | XMS_ITS ---
Author Organization [facility] Address [address] [facility] [place] [address] Care Team Providers Care Lead Business Analyst Name Role Phone Bruce ANDREW, Anel Irene Primary Care Provider Un available Sheela Day Unavailable [phone] Jun Goss Unavailable Unavailable Encounters Encounter Location Date Provider Diagnosis [address] [address] 09/04/2024 Sheela Day Plan Of Treatment No Information Progress Notes * Shama ANAND ADOB:1965 (60 yo F)Acc No.[id number]:09/04/2024 Progress Note Patient: Shama ARTEAGA Provider: Shukri Day DPM :1965 A ge:59 Y S ex:Female Date:09/04/2024 Address:[address] [place], [place] [id number] Pcp:Suman Alas Subjective: * Chief Complaints: * * Medical History: Objective: * Vitals: Assessment: Plan: * Treatment: * Images: * The named appointment provid er may or may not be the originator of this progress note, and it is not deemed complete until electronically signed by the appointment provider. Sign off status: Pending * Provider: Shukri Day DPM Date: 11/04/2023 Generated for Myles williamson/Ricardo/eTransmitting on: 11/27/2024 08:14 AM EST
--- OUTSIDE RECORDS SUMMARY | 2025-09-24 12:59 | XMS_ITS | Continuity of Care Document ---
Author Organization [facility] ter Address [address] [place] [id number]- Care Team Providers Care Dispute Resolution Specialist Name Role Phone Bruce ANDREW, Anel Dunne Primary Care Physician Encounter [facility] [id number] Date(s): 09/22/25 - 09/24/[address] [address]- Encounter Diagnosis Adverse effect of sulfonylurea(Final) - 09/22/25 Insulin dependent type 2 diabetes mellitus(Final) - 09/22/25 Discharge Disposition: A-D/C Home Attending Physician: Corey Jarvis MD Admitting Physician: Corey Jarvis MD Referring Physician: Not on Staff, Referring MD Encounter Type: Disch IP Allergies, Adverse Reactions, Alerts No Known Allergies Functional Status Functional Status Assessment Assessment Assessment Component Result Effecti ve Date Total score [AUDIT] 0 09/24/25 Functional Status Assessment Assessment Assessment Component Result Effecti ve Date Unspecifed Functional Status Assessment Skin abnormality typ e (observable entity) Bruise 09/24/25 Functional Status Assessment Assessment Assessment Component Result Effecti ve Date Unspecifed Functional Status Assessment Skin abnormality typ e (observable entity) Bruise 09/24/25 Immunizations Given and Recorded Vaccine Date Status [...] Albuterol (Eqv-ProAir HFA) 90 mcg/inh inhalation aerosol 2 inhalation = 180 mcg, Inhalation, Every 6 hours, PRN Wheezing/Shortness of Breath, 0 Refills, 05/12/24 3:04:00 PM EDT, Partial fill upon patient request if the prescription is for a schedule II opioid drug. Start Date: 05/12/24 Status: Ordered Medication Dispense Status: Completed Total Allowed Fills: 1 Fills Dispensed: 0 atorvastatin 80 mg oral tablet 1 tablet = 80 mg, By Mouth, Daily, # 30 tablet, 0 Refills, Maintenance, 05/11/25 12:46:00 PM EDT, Tablet, [facility], Partial fill upon patient [...] Total Allowed Fills: 1 Fills Dispensed: 0 folic acid 1 mg oral tablet 1 mg, 1, tablet, By Mouth, Daily, Refills 0, Maintenance, 09/23/25 11:41:00 AM EST, Partial fill upon patient request if the prescription is for a schedule II opioid drug. Start Date: 09/23/25 Status: Ordered Medication Dispense Status: Completed Total [...] Acquired absence of right leg below knee; glipiZIDE 5 mg oral tablet 5 mg, 1, tablet, By Mouth, 2 times a day, Maintenance, 06/16/25 1:38:00 PM EDT, Partial fill upon patient request if the prescription is for a schedule II opioid drug. Start Date: 06/16/25 Status: Ordered Medication Dispense Status: Completed Total Allowed Fills: 1 Fills Dispensed: 0 Humalog Kwik Pen 100 units/mL subcutaneous injection 2-10 units, Subcutaneous Injection, 3 times a day before meals, sliding scale 150-200= 2 units 201-250= 4 units 251-300= 6 units 301-350= 8 units 351-400= 10 units, 0 Refills, Maintenance, 09/23/25 11:26:00 AM EST, Partial fill upon patient request if the prescription is for a schedule II opioid drug. Start Date: 09/23/25 Status: Ordered Medication Dispense Status: Completed Total [...] Total Allowed Fills: 1 Fills Dispensed: 0 isosorbide mononitrate 30 mg oral tablet, extended release 30 mg, By Mouth, Daily, # 30 tablet, Refills 0, Tot. Refills 0, Maintenance, 06/20/25 2:05:00 PM EDT, Route to Pharmacy Electronically, [facility], Partial fill upon patient request if the prescription is for a schedule II opioid drug., 158, cm, 05/17/25 11:51:00 EDT, Height, 66.9, kg,06/17/25 12:42:00 EDT, Dry Weight Start Date: 06/20/25 Status: Ordered Medication Dispense Status: Completed Quantity: 30.0 Unit: tablet Total Allowed Fills: 1 Fills Dispensed: 0 lactobacillus acidophilus oral capsule 4 capsule, By Mouth, 3 times a day, Maintenance, 06/16/25 1:40:00 PM EDT, Partial fill upon patient request if the prescription is for a schedule II opioid drug. Start Date: 06/16/25 Status: Ordered Medication Dispense Status: Completed Total Allowed Fills: 1 Fills Dispensed: 0 Lantus Solostar Pen 100 units/mL subcutaneous solution = 10 units, Subcutaneous Injection, Daily, 0 Refills, 02/04/24 8:35:00 AM EDT, Partial [...] 2:26:00 PM EDT, Route to Pharmacy Electronically, [facility], Partial fill upon patient request if the prescription is for a schedule II opioid drug., 158, cm, 04/26/25 11:18:00 EDT, Height, 60, kg, 04/21/25 19:23:00 EDT, Dry Weight Start Date: 04/26/25 Status: Ordered Medication Dispense Status: Completed Quantity: 90.0 Unit: tablet Total Allowed Fills: 1 Fills Dispensed: 0 lidocaine 4% patch 2 patch, Topically, Daily, Maintenance, 06/16/25 1:38:00 PM EDT, Partial fill upon patient request ifthe prescription is for a schedule II opioid drug. Start Date: 06/16/25 Status: Ordered Medication Dispense Status: Completed Total Allowed Fills: 1 Fills Dispensed: 0 metoprolol 25 mg oral tablet 25 mg, 1, tablet, By Mouth, 2 times a day, Maintenance, 06/16/25 1:38:00 PM EDT, Partial fill upon patient request if the prescription is for a schedule II opioid drug. 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 Start Date: 04/18/25 Status: Ordered Medication Dispense Status: Completed Total Allowed Fills: 1 Fills Dispensed: 0 Tylenol 325 mg oral tablet 975 mg, 3, tablet, By Mouth, Every 6 hours, Refills 0, Maintenance, 12/10/23 10:28:00 AM EST, Partialfill upon patient request if the prescription is for a schedule II opioid drug. Start Date: 12/10/23 Status: Ordered Medication Dispense Status: Completed Total Allowed Fills: 1 Fills Dispensed: 0 Wellbutrin SR 150 mg/12 hours oral tablet, extended release 1 tablet = 150 mg, By Mouth, Daily, Maintenance, 06/16/25 1:35:00 PM EDT, Partial fill upon patient request if the prescription is for a schedule II opioid drug. Start Date: 06/16/25 Status: Ordered Medication Dispense Status: Completed Total Allowed Fills: 1 Fills Dispensed: 0 Xarelto 2.5 mg oral tablet 1 tablet = 2.5 mg, By Mouth, 2 times a day, Maintenance, 06/16/25 1:37:00 PM EDT, Partial fill upon patient request if the prescription is for a schedule II opioid drug. Start Date: 06/16/25 Status: Ordered Medication Dispense Status: Completed Total Allowed Fills: 1 Fills Dispensed: 0 Mental Status Mental Status Assessment Assessment Assessment Component Result Effecti ve Date Paulding coma score total 15 Problem List Condition Confirmation Course Effective Dates Status Health Status Informant Benign essential hypertension Confirmed Active Bipolar disorder, NOS Confirmed Active CAD - Coronary artery disease Confirmed Active CVA (cerebrovascular accident) Confirmed Active Cigarette smoker Confirmed Active Coronary [...] Confirmed Active NSTEMI - Non-ST segment elevation AL Confirmed Active Peripheral arterial disease Confirmed Active PTSD (post-traumatic stress disorder) Confirmed Active Type 2 diabetes mellitus with neurological manifestations Confirmed Active Results Radiology Reports * Exam Date Time Procedure Performing Provider Status 09/22/25 6:[address] Cervical Spine W/O Contrast Auth (Verified) Notes: (CT Cervical Spine W/O Contrast) Reason For Exam: Neck trauma, dangerous injury mechanism;Other: RESULT: CT Cervical Spine W/O Contrast CT Head/Brain W/O Contrast, CT Cervical Spine W/O Contrast INDICATION: Hx of Present Illness: from home- kids noticed she was feeling fatigued and nodding off, c o n v. blood glucose monitor trending down, lowest 45. tried to feed her with no + effec; Reason: Other:; Clinical Question(s): Hematoma; Order Comment: - TECHNIQUE: Noncontrast head CT using axial technique was reconstructed in axial and coronal planes.Noncontrast spiral CT through the cervical spine was formatted in 3 planes. Automatic tube modulation was used for the cervical spine and iterative dose reconstruction was used for both the head and cervical spine to optimize scan parameters and image quality. COMPARISON: May 09, 1995. FINDINGS: Carriage Operator View Findings, Lines and Tubes: None. BRAIN AND EXTRA-AXIAL SPACES: There is a new focal hypodensity within the left periventricular white matter (series 302 image 93)and right cerebellar hemisphere (series 302 image 33) and surrounding for age-indeterminate infarct. No parenchymal hemorrhage, midline shift, or mass effect. Adams-white matter differentiation is wellpreserved. Encephalomalacia within left cerebellar hemisphere. Mild prominence of the ventricles and sulci consistent with parenchymal volume loss. Mild low-density white matter changes. Unchanged 3 mm calcified lesion along the posterior cerebral convexity which may represent a meningioma. No subarachnoid hemorrhage. No subdural or epidural collection. CALVARIUM, SKULL BASE, AND SOFT TISSUES: No fractures. Stable 1.8 cm osseous protuberance along the left frontal calvarium. The mastoid air cells are clear. Mucosal thickening of the maxillary sinuses, right greater than left. Visualized orbits and globes are intact. The extracranial soft tissues are unremarkable. CERVICAL SPINE: No acute fractures or dislocations. Anterior spinal fusion of C4-C5 and C5-C6. No evidence of hardware failure. Straightening of the normal cervical lordosis, which may be positional or due to muscle spasm. Moderate multilevel degenerative disc space narrowing and end plate irregularity. OTHER BONES: No acute abnormality. CERVICAL SOFT TISSUES AND LUNG APICES: Normal soft tissues. Visualized lung apices are clear. Normal thyroid. IMPRESSION: There is a new focal hypodensity within the left periventricular white matter and right cerebellar hemisphere, concerning for age-indeterminate infarcts. Findings may further evaluated with MRI if clinically indicated. Unchanged 3 mm calcified lesion along the posterior cerebral convexity which may represent a meningioma. No acute fractures of the cervical spine. An actionable message (Red) has been communicated via the Drawn to Scale system on 09/22/2025 7:05 PM, Message ID [id number]. WSN: [id number] Ordering Physician: Monty Solo Dictated By: Jun Holt DO Dictated Date/Time: 09/22/25 7:05 pm Reviewed By: Jun Holt DO Signed By: Jun Holt DO Signed Date/Time: 09/22/25 7:05 pm Transcribed By: BROWN Transcribed Date/Time: 09/22/25 6:58 pm * Exam Date Time Procedure Performing Provider Status 09/22/25 6:[address] Head/Brain W/O Contrast Auth (Verified) Notes: (CT Head/Brain W/O Contrast) Reason For Exam: Other: RESULT: CT Head/Brain W/O Contrast CT Head/Brain W/O Contrast, CT Cervical Spine W/O Contrast INDICATION: Hx of Present Illness: from home- kids noticed she was feeling fatigued and nodding off, c o n v. blood glucose monitor trending down, lowest 45. tried to feed her with no + effec; Reason: Other:; Clinical Question(s): Hematoma; Order Comment: - TECHNIQUE: Noncontrast head CT using axial technique was reconstructed in axial and coronal planes.Noncontrast spiral CT through the cervical spine was formatted in 3 planes. Automatic tube modulation was used for the cervical spine and iterative dose reconstruction was used for both the head and cervical spine to optimize scan parameters and image quality. COMPARISON: May 09, 1995. FINDINGS: Carriage Operator View Findings, Lines and Tubes: None. BRAIN AND EXTRA-AXIAL SPACES: There is a new focal hypodensity within the left periventricular white matter (series 302 image 93)and right cerebellar hemisphere (series 302 image 33) and surrounding for age-indeterminate infarct. No parenchymal hemorrhage, midline shift, or mass effect. Adams-white matter differentiation is wellpreserved. Encephalomalacia within left cerebellar hemisphere. Mild prominence of the ventricles and sulci consistent with parenchymal volume loss. Mild low-density white matter changes. Unchanged 3 mm calcified lesion along the posterior cerebral convexity which may represent a meningioma. No subarachnoid hemorrhage. No subdural or epidural collection. CALVARIUM, SKULL BASE, AND SOFT TISSUES: No fractures. Stable 1.8 cm osseous protuberance along the left frontal calvarium. The mastoid air cells are clear. Mucosal thickening of the maxillary sinuses, right greater than left. Visualized orbits and globes are intact. The extracranial soft tissues are unremarkable. CERVICAL SPINE: No acute fractures or dislocations. Anterior spinal fusion of C4-C5 and C5-C6. No evidence of hardware failure. Straightening of the normal cervical lordosis, which may be positional or due to muscle spasm. Moderate multilevel degenerative disc space narrowing and end plate irregularity. OTHER BONES: No acute abnormality. CERVICAL SOFT TISSUES AND LUNG APICES: Normal soft tissues. Visualized lung apices are clear. Normal thyroid. IMPRESSION: There is a new focal hypodensity within the left periventricular white matter and right cerebellar hemisphere, concerning for age-indeterminate infarcts. Findings may further evaluated with MRI if clinically indicated. Unchanged 3 mm calcified lesion along the posterior cerebral convexity which may represent a meningioma. No acute fractures of the cervical spine. An actionable message (Red) has been communicated via the Drawn to Scale system on 09/22/2025 7:05 PM, Message ID [id number]. WSN: [id number] Ordering Physician: Monty Solo Dictated By: Jun Holt DO Dictated Date/Time: 09/22/25 7:05 pm Reviewed By: Jun Holt DO Signed By: Jun Holt DO Signed Date/Time: 09/22/25 7:05 pm Transcribed By: BROWN Transcribed Date/Time: 09/22/25 6:58 pm Vital Signs Most recent to oldest [Reference Range]: 1 2 3 Height 158 cm (09/24/25 12:03 PM) 158 cm (09/24/25 10:54 AM) Oxygen Saturation [94-100 %] 100 % (09/24/25 12:03 PM) 100 % (09/24/25 10:54 AM) 100 % (09/24/25 8:49 AM) Pulse Rate [55-90 bpm] 59 bpm (09/24/25 12:03 PM) 59 bpm (09/24/25 10:54 AM) 58 bpm (09/24/25 8:49 AM) Blood Pressure [90-138/55-84 mm Hg] 143/62mm Hg *H* (09/24/25 12:03 PM) 143/64mm Hg *H* (09/24/25 10:54 AM) 133/95mm Hg (09/24/25 8:49 AM) Respiratory Rate [16-30 br/min] 18 br/min (09/24/25 12: PM) 18 br/min (09/24/25 10:54 AM) 18 br/min (09/24/25 8:49 AM) Temperature [96.8-100.4 DegF] 98.6 DegF (09/24/25 12:03 PM) 98.2 DegF (09/24/25 8:49 AM) 98.8 DegF (09/24/25 5:14 AM) Mode of Delivery (Oxygen) Room air (09/24/25 10:54 AM) Room air (09/24/25 8:49 AM) Room air (09/24/25 5:14 AM) Blood pressure sites Arm, right (09/24/25 10:54 AM) Arm, left (09/24/25 8:49 AM) Arm, right (09/24/25 5:14 AM) Temperature Route Oral (09/24/25 12:03 PM) Oral (09/24/25 8:49 AM) Oral (09/24/25 5:14 AM) Social History Social History Type Response Tobacco Use: 4 or less cigar ettes(less than 1/4 pack)/day in last 30 days. Type: Cigarettes. Sex Sex Representation Female (finding) Status Not Admission evaluation note * Jessica Gar MD: PERFORM Event Display: Admission Note Authored Date: Patient: ??JOHANNA ANAND ? Age:??60 Years?Sex:??Female?:??1965?LOC:??[facility]?? Chief Complaint/Reason for Consultation from home- kids noticed she was feeling fatigued and nodding off, c/o n/v. blood glucose monitor trending down, lowest 45. tried to feed her with no + effect. History of Present Illness Patient is a 60-year-old female with past medical history of??coronary artery disease atrial fibrillation asthma??right AKA atrial fibrillation??on??rivaroxaban, prior history of multifocal??stroke with hemorrhagic conversion in June, history of coronary artery disease with stents and status post in-stent stent stenosis remains on aspirin and tigerlicor ?? Patient was sent to the emergency room today due to??increasing??fatigue and some??somnolence this morning. ??Patient was sent in by??[facility]. ??She??was found to have blood sugar of 45. ??In the emergency room patient had a CT head and spine CT head shows an old infarct.?? Patient received??D50, and D5 normal saline blood sugars have now corrected patient feels fine she is alert oriented no apparentdistress ?? Does state that she had a fall about 3 days ago and after the fall she has some bilateral arm tingling and some numbness. ??She has prior history of??spinal fusion??in the cervical area??and she doeshave some mild tenderness ?? CT spine was done which does not show any for fracture or dislocation but she has some decreased curvature of the spine??question muscle spasm ?? Patient is being??admitted for blood sugar correction and resumption of home regimen of insulin??with some close monitoring ? Review of Systems Patient denies any fevers chills no shortness of breath no cough no chest pain or pressure no productive sputum no nausea vomiting no GI symptoms of constipation or diarrhea no symptoms of urinaryfrequency or dysuria. ??No focal musculoskeletal complaints with the exception of bilateral upper??hand numbness which started 3 days ago after a fall. No weakness of bilateral upper extremities no weakness of lower extremities no bowel or bladder incontinence Objective Vital Signs?? Temperature: 97.9 DegF (09/22/25 19:00:00) Temperature Route: Oral (09/22/25 19:00:00) Pulse Rate: 70 bpm (09/23/25 11:23:00) Respiratory Rate: 16 br/min (09/23/25 11:23:00) Systolic Blood Pressure:??161 mm Hg??High (09/23/25 11:23:00) Diastolic Blood Pressure: 66 mm Hg (09/23/25 11:23:00) Blood pressure sites: Arm, left (09/22/25 19:00:00) Mean Arterial Pressure: 103 mm Hg (09/22/25 18:07:00) Pulse Pressure: 95 mm Hg (09/23/25 11:23:00) Oxygen Saturation: 99 % (09/23/25 11:23:00) Mode of Delivery (Oxygen): Room air (09/23/25 11:23:00) Early Warning Score: 2 (09/23/25 11:24:08) ? Physical Exam Patient is alert oriented sitting in ED stretcher no apparent distress Neurological exam?? cranial nerves II through XII are completely intact Bilateral upper extremity strength is 5 out of 5 throughout and??all??muscle groups Sensation??in both hands??are subjectively decreased to soft touch Lower extremity on left strength is 5 out of 5 throughout/patient has a right AKA hip flexors intact strength on right side Sensation lower extremities is normal Gait not tested Patient does have some??mild tenderness??posterior spine over??C5-C6 area ?? Lungs are clear to auscultation bilaterally no wheeze rales or rhonchi Cardiac regular rate rhythm normal S1-S2 no murmurs rubs or gallop Abdomen soft benign normal??bowel sounds Extremity left lower extremity no edema Skin no rash Assessment/Plan Diagnoses Adverse effect of sulfonylurea ??(T38.3X5A) 2. ??Insulin dependent type 2 diabetes mellitus ??(E11.9) 3. ??CVA (cerebrovascular accident) ??(I63.9) 4. ??CAD - Coronary artery disease ??(I25.10) 5. ??Bipolar disorder, NOS ??(F31.9) ?? Assessment:??Patient presented with altered mental status secondary to??hypoglycemia with a blood sugar of 45 this is now??been corrected with??IV??dextrose. blood sugar up from 45 to 301??and metal status improved and at normal now. ??Patient is being admitted for??treatment of hypoglycemia. ?? Adverse effect of sulfonylurea (T38.3X5A) ?Associated with??Insulin dependent type 2 diabetes mellitus (E11.9) ? presented with hypoglycemia.??took 30 units of Lantus (was on 10 units in may) and took 20 units of Humalog last night. as well as her glipizide will decrease Lantus back??to 10 units continue iss with lispro. and hold glipizide for now. ?? will stop D5 LR and transition to oral diet.? CAD - Coronary artery disease (I25.10): ??history of afib.?-rate controlled history of NSTEMI and InStent??thrombosis history of Hfpef.?? appears euvolemic on exam ?? continue?? aspirin 81 mg po bid ticagrelor 90 mg po bid metoprolol??25 mg po bid atorvastatin 80 mg po qd Imdur 30 mg po qd lasix 40 mg po qd ?? Bipolar disorder, NOS (F31.9):?? Continue buspirone continue home medications, bupropion, buspirone, ropinirole? CVA (cerebrovascular accident) (I63.9):??Prior history of CVA last summer??head CT does show??lacunar infarct??likely old can consider MRI however she has no focal deficits??and feels like she is back at her baseline now that her blood sugars corrected ?? Does have new bilateral hand numbness status post a fall.??CTs of spine??cervical spine where she has had fusion does not show any acute fracture??or concerning feautes. ?? PRN nsaid,??Tylenol and??lidocaine patch to back.??PT eval ?? VTE Prophylaxis:??on chronic rivaroxaban for afib ?VTE Prophylaxis Assessment:??VTE Prophylaxis Ordered ?? Code Status:??full ? Histories Allergies Allergies ?(Active and Proposed Allergies Only) NKA? (Severity: Unknown severity, Onset: Unknown) ? 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 Past Surgical History Amputation Above Knee, Right: 12/07/23 Amputation Below Knee, Right: 10/25/23 section x 2 Breast reduction Abdominal hysterectomy Repair of ventral hernia x 2 Carpal tunnel decompression ? Social History Alcohol Details:??Use: Past. 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 Exercise Details:??Self assessment: Good condition. ??Regular exercise: No. Home/Environment Details:??Living situation: Home/Independent. ??Lives with: Alone. Nutrition/Health Details:??Diet: Regular, Diabetic. ??Caffeine intake amount: 2-3 cups a day. ??Feels highly stressed: Yes. Substance Abuse Details:??Use: Never. Tobacco Details:??Use: 4 or less cigarettes(less than 1/4 pack)/day in last 30 days. ??Type: Cigarettes. Details:??Current every day smoker Details:??Current every day smoker Details:??Current every day smoker Details:??Current every day smoker ? Family History Mother: Alcoholism; CAD - Coronary artery disease; Cancer of breast; Diabetes mellitus type II; Hyperlipidemia; Mental illness; Osteoporosis ? Medications Home Medications Acetaminophen (Tylenol 325 mg oral tablet)??975 Milligram 3 tablet By Mouth Every 6 hours Albuterol (Albuterol (Eqv-ProAir HFA) 90 mcg/inh inhalation aerosol)??2 inhalation 180 Microgram Inhalation Every 6 hours as needed Wheezing/Shortness of Breath Atorvastatin (atorvastatin 80 mg oral tablet)??1 tab(s) 80 Milligram By Mouth Daily for 30 Days BuPROpion (Wellbutrin SR 150 mg/12 hours oral tablet, extended release)??1 tab(s) 150 Milligram By Mouth Daily BusPIRone (busPIRone 15 mg oral tablet)??1 tab(s) 15 Milligram By Mouth 2 times a day Durable Medical Equipment (Four-wheeled walker with a seat)??See 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 Dx: 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)??See 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 Durable Medical Equipment (right AKA temporary prosthesis)??See 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 right AKA temporary prosthesis Folic Acid (folic acid 1 mg oral tablet)??1 Milligram 1 tablet By Mouth Daily Furosemide (Lasix 40 mg oral tablet)??40 Milligram 1 tablet By Mouth Daily GlipiZIDE (glipiZIDE 5 mg oral tablet)??5 Milligram 1 tablet By Mouth 2 times a day HydrOXYzine (hydrOXYzine hydrochloride 10 mg oral tablet)??1 tab(s) 10 Milligram By Mouth 2 times aday as needed as needed for anxiety Insulin Glargine (Lantus Solostar Pen 100 units/mL subcutaneous solution)??10 unit(s) Subcutaneous Injection Daily Insulin Lispro (Humalog Kwik Pen 100 units/mL subcutaneous injection)??2-10 units Subcutaneous Injection 3 times a day before meals sliding scale 150-200= 2 -473= 4 -879= 6 [id number]= 8 [id number]= 10 units Isosorbide Mononitrate (isosorbide mononitrate 30 mg oral tablet, extended release)??30 Milligram By Mouth Daily Lactobacillus Acidophilus (lactobacillus acidophilus oral capsule)??4 capsule By Mouth 3 times a day Lidocaine Topical (lidocaine 4% patch)??2 patch Topically Daily Metoprolol (metoprolol 25 mg oral tablet)??25 Milligram 1 tablet By Mouth 2 times a day Multivitamin With Minerals (Centrum Adults)??1 tab(s) By Mouth Daily Pantoprazole (Protonix 40 mg oral delayed release tablet)??1 tab(s) 40 Milligram By Mouth Daily rivaroxaban (Xarelto 2.5 mg oral tablet)??1 tab(s) 2.5 Milligram By Mouth 2 times a day Ropinirole (rOPINIRole 0.25 mg oral tablet)??1 tab(s) 0.25 Milligram By Mouth 2 times a day Ticagrelor (ticagrelor 90 mg oral tablet)??1 tab(s) 90 Milligram By Mouth 2 times a day for 30 Daysrefills by cardiology Trazodone (traZODone 50 mg oral tablet)??50 Milligram 1 tablet By Mouth Daily at bedtime ? Inpatient Medications Medications (31) Active SCHEDULED: (17) Aspirin (Aspirin Tablet) ??81 mg, By Mouth, Daily Atorvastatin 80 mg Tablet (atorvastatin 80 mg oral tablet) ??80 mg, By Mouth, Daily BuPROPion 150 mg SR Tablet (BuPROpion SR Tablet) ??150 mg, By Mouth, Daily BusPIRone 10 mg Tablet (busPIRone 10 mg oral tablet) ??15 mg, By Mouth, 2 times a day Furosemide 40 mg Tablet (Lasix 40 mg oral tablet) ??40 mg, By Mouth, Daily Insulin Glargine 100 units/mL Inj (Lantus Inj) ??10 units 0.1 mL, Subcutaneous Injection, Daily at bedtime Insulin Lispro 100 units/mL Inj (Insulin LISPRO Sliding Scale) ??2-10 units, Subcutaneous Injection, 3 times a day before meals Isosorbide Mononitrate 30 mg ER Tablet (isosorbide mononitrate 30 mg oral tablet, extended release)??30 mg, By Mouth, Daily Lactobacillus Acidophilus Bulgaricus Tablet ??4 tablet, By Mouth, 3 times a day Lidocaine Topical (Lidocaine 2% Topical) ??1 application, Topically, Daily Metoprolol 25mg Tablet (metoprolol 25 mg oral tablet) ??25 mg, By Mouth, 2 times a day Multivitamin Therapeutic / Minerals Tablet (Multivit Therapeutic/Minerals Liquid) ??1 tablet, By Mouth, Daily NaCl 0.9% Flush 3ml (NaCL 0.9% Flush) ??3 mL, IV Push, Every 8 hours Pantoprazole 40 mg EC Tablet (Protonix 40 mg oral delayed release tablet) ??40 mg, By Mouth, Daily Rivaroxaban 2.5 mg Tablet (Xarelto) ??2.5 mg, By Mouth, 2 times a day Ropinirole 0.25 mg Tablet (rOPINIRole 0.25 mg oral tablet) ??0.25 mg, By Mouth, 2 times a day Ticagrelor 90 mg Tablet (Ticagrelor Tablet) ??90 mg 1 tablet, By Mouth, 2 times a day CONTINUOUS: (0) PRN: (14) Acetaminophen 325 mg Tablet (Acetaminophen Tablet) ??650 mg, By Mouth, Every 4 hours Albuterol 90mcg/Inhalation Inhaler HFA (Ventolin 90 mcg Inhaler) ??180 mcg 2 puffs, Inhalation, Every 6 hours Dextromethorphan-Guaifenesin 20 mg-200 mg/10 mL Liqu UD (Robitussin DM Liquid) ??10 mL, By Mouth, Every 4 hours Dextrose Inj Syringe (Dextrose 50% Inj Syringe (25Gm)) ??12.5 Gm, IV Push Slowly, Every 20 minutes Dextrose Inj Syringe (Dextrose 50% Inj Syringe (25Gm)) ??25 Gm, IV Push Slowly, Every 15 minutes Glucagon 1 mg Inj (Glucagon Inj) ??1 mg, Intramuscular, Once Glucose 40% Gel (15 Gm) (Glucose Gel) ??15 Gm, By Mouth, Every 20 minutes Glucose 40% Gel (15 Gm) (Glucose Gel) ??30 Gm, By Mouth, Every 20 minutes HydrOXYzine HCL 10mg Tablet (hydrOXYzine hydrochloride 10 mg oral tablet) ??10 mg, By Mouth, 2 times a day Melatonin 3 mg Tablet (Melatonin Tablet) ??3 mg, By Mouth, Daily at bedtime NaCl 0.9% Flush 3ml (NaCL 0.9% Flush) ??3 mL, IV Push, Every 8 hours Polyethylene Glycol 17 Gm Powder (MiraLax Powder) ??17 Gm 1 pack/packet, By Mouth, Daily Senna Tablet ??8.6 mg 1 tablet, By Mouth, 2 times a day Simethicone 80 mg Chewable Tablet (Simethicone Tablet) ??80 mg, Chew, 3 times a day ? Results Recent Labs BLOOD COUNT & DIFF WBC 13.2 k/mm3 (High)?? 09/22/2025 19:00 RBC 4.44 m/mm3 ()?? 09/22/2025 19:00 Hgb 12.3 Gm/dL ()?? 09/22/2025 19:00 Hct 38.6 % ()?? 09/22/2025 19:00 MCV 86.9 femtoliters ()?? 09/22/2025 19:00 MCH 27.7 pg ()?? 09/22/2025 19:00 MCHC 31.9 Gm/dL (Low)?? 09/22/2025 19:00 Platelet Count 372 k/mm3 ()?? 09/22/2025 19:00 RDW-SD 51.0 femtoliters (High)?? 09/22/2025 19:00 MPV 10.4 femtoliters ()?? 09/22/2025 19:00 Nucleated RBC (Automated) 0.0 #/100 WBC'S ()?? 09/22/2025 19:00 Abs. NRBC 0.0 k/mm3 ()?? 09/22/2025 19:00 Abs. Neut 10.2 k/mm3 (High)?? 09/22/2025 19:00 Abs. Lymph 2.1 k/mm3 ()?? 09/22/2025 19:00 Abs. Riley 0.7 k/mm3 ()?? 09/22/2025 19:00 Abs. Eo 0.1 k/mm3 ()?? 09/22/2025 19:00 Abs. Baso 0.0 k/mm3 ()?? 09/22/2025 19:00 Neut % 76.9 % (High)?? 09/22/2025 19:00 Lymph % 15.8 % ()?? 09/22/2025 19:00 Riley % 5.5 % ()?? 09/22/2025 19:00 Eos % 1.0 % ()?? 09/22/2025 19:00 Baso % 0.3 % ()?? 09/22/2025 19:00 Imm Gran 0.5 % ()?? 09/22/2025 19:00 Abs. Imm Gran 0.1 k/mm3 ()?? 09/22/2025 19:00 ?? CARDIAC High Sensitivity Troponin (HSTnT) 35 ng/L (High)?? 09/22/2025 22:00 ?? CHEM GENERAL Sodium 140 mmol/L ()?? 09/22/2025 19:00 Potassium 3.5 mmol/L (Low)?? 09/22/2025 19:00 Chloride 102 mmol/L ()?? 09/22/2025 19:00 Bicarbonate Level 25 mmol/L ()?? 09/22/2025 19:00 Anion Gap 13 mmol/L ()?? 09/22/2025 19:00 Glucose Level 159 mg/dL (High)?? 09/22/2025 19:00 Glucose, POC 301 mg/dL (High)?? 09/23/2025 08:04 BUN 23 mg/dL ()?? 09/22/2025 19:00 Creatinine-Blood 1.31 mg/dL (High)?? 09/22/2025 19:00 Estimated GFR Creatinine 47 ML/MIN/1.73 M2 ()?? 09/22/2025 19:00 Calcium 9.1 mg/dL ()?? 09/22/2025 19:00 ?? ENDOCRINE/TUMOR MARKER TSH 0.79 uIU/mL ()?? 09/22/2025 19:42 ?? UA/URINALYSIS Appear/Color, Urine LIGHT YELLOW ()?? 09/23/2025 00:30 Specific [place], Urine 1.019 ()?? 09/23/2025 00:30 pH, Urine 6.5 ()?? 09/23/2025 00:30 Albumin, Urine 1+ (Abnormal)?? 09/23/2025 00:30 Glucose, Urine 2+ (Abnormal)?? 09/23/2025 00:30 Ketones, Urine NEGATIVE ()?? 09/23/2025 00:30 Bilirubin, Urine NEGATIVE ()?? 09/23/2025 00:30 Hemoglobin, Urine NEGATIVE ()?? 09/23/2025 00:30 Nitrite, Urine NEGATIVE ()?? 09/23/2025 00:30 Leukocyte, Urine NEGATIVE ()?? 09/23/2025 00:30 Urobilinogen NORMAL mg/dL ()?? 09/23/2025 00:30 WBC's, Urine 1 /HPF ()?? 09/23/2025 00:30 RBC's, Urine <1 /HPF () 09/23/2025 00:30 Squamous Epith 4 /HPF ()?? 09/23/2025 00:30 Hyaline Cast 3 LPF (High)?? 09/23/2025 00:30 ?? VIROLOGY Influenza A PCR NEGATIVE ()?? 09/22/2025 21:06 Influenza B PCR NEGATIVE ()?? 09/22/2025 21:06 RSV PCR NEGATIVE ()?? 09/22/2025 21:06 COVID-19 PCR Specimen Source NASAL ()?? 09/22/2025 21:06 COVID-19 PCR Result NEGATIVE ()?? 09/22/2025 21:06 ? Image ?CT Cervical Spine W/O Contrast??09/22/2025 18:55 by Cayla Putnam ?IMPRESSION: There is a new focal hypodensity within the left periventricular white matter and right cerebellar hemisphere, concerning for age-indeterminate infarcts. Findings may further evaluated with MRI if clinically indicated. Unchanged 3 mm calcified lesion along the posterior cer ebral convexity which may represent a meningioma. No acute fractures of the cervical spine. ?CT Head/Brain W/O Contrast??09/22/2025 18:55 by Cayla Putnam ? IMPRESSION: There is a new focal hypodensity within the left periventricular white matter and rightcerebellar hemisphere, concerning for age-indeterminate infarcts. Findings may further evaluated with MRI if clinically indicated. Unchanged 3 mm calcified lesion along the posterior cerebral convexity which may represent a meningioma. No acute fractures of the cervical spine. ?? Electronically Signed on 09/23/25 12:06 PM Cong ANDREW, Jessica EKG study * Event Display: ECG 12-Lead Authored Date: Please click on pdf link to open report * Event Display: ECG 12-Lead Authored Date: Ventricular Rate: 49 BPM Atrial Rate: 49 BPM P-R Interval: 156 ms QRS Duration: 140 ms Q-T Interval: 560 ms QTC Calculation(Bazett): 505 ms P Helen: 56 degrees R Helen: -28 degrees T Helen: 46 degrees Sinus bradycardia Non-specific intra-ventricular conduction block Minimal voltage criteria for LVH, may be normal variant ( Walker product ) Inferior infarct , age undetermined Abnormal ECG When compared with ECG of 18-Jun-2025 11:45, Significant changes have occurred Confirmed by SEBASTIAN COSTELLO MD ([id number]) on 09/23/2025 8:10:26 AM Larn[place]: SEBASTIAN COSTELLO MD Note * Fabiana Kelly RN: PERFORM Event Display: Discharge/Transfer Note Hospital Authored Date: Nursing Discharge Note Entered On: 09/24/2025 13:00 EST Performed On: 09/24/2025 12:59 EST by Fabiana Kelly RN Nursing Discharge Note 2 Discharge Level of Care at Discharge : Home/Longterm/Foster Care Discharge Time : 09/24/2025 12:59 EST 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 Age:??60 Years?Sex:??Female?:??1965?LOC:??[facility]?? 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) Hypoglycemia (E16.2) Fall (W19.XXXA) CVA (cerebrovascular accident) (I63.9) Atrial fibrillation (I48.91) CAD - Coronary artery disease (I25.10) Bipolar disorder, NOS (F31.9) Hypoglycemia ([id number]) _ Discharge Medications Acetaminophen (Tylenol 325 mg oral tablet)??975 Milligram 3 tablet By Mouth Every 6 hours Albuterol (Albuterol (Eqv-ProAir HFA) 90 mcg/inh inhalation aerosol)??2 inhalation 180 Microgram Inhalation Every 6 hours as needed Wheezing/Shortness of Breath Atorvastatin (atorvastatin 80 mg oral tablet)??1 tab(s) 80 Milligram By Mouth Daily for 30 Days BuPROpion (Wellbutrin SR 150 mg/12 hours oral tablet, extended release)??1 tab(s) 150 Milligram By Mouth Daily BusPIRone (busPIRone 15 mg oral tablet)??1 tab(s) 15 Milligram By Mouth 2 times a day Durable Medical Equipment (Four-wheeled walker with a seat)??See 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 Dx: 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)??See 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 Durable Medical Equipment (right AKA temporary prosthesis)??See 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 right AKA temporary prosthesis Folic Acid (folic acid 1 mg oral tablet)??1 Milligram 1 tablet By Mouth Daily Furosemide (Lasix 40 mg oral tablet)??40 Milligram 1 tablet By Mouth Daily GlipiZIDE (glipiZIDE 5 mg oral tablet)??5 Milligram 1 tablet By Mouth 2 times a day HydrOXYzine (hydrOXYzine hydrochloride 10 mg oral tablet)??1 tab(s) 10 Milligram By Mouth 2 times aday as needed as needed for anxiety Insulin Glargine (Lantus Solostar Pen 100 units/mL subcutaneous solution)??10 unit(s) Subcutaneous Injection Daily Insulin Lispro (Humalog Kwik Pen 100 units/mL subcutaneous injection)??2-10 units Subcutaneous Injection 3 times a day before meals sliding scale 150-200= 2 -122= 4 -803= 6 [id number]= 8 -550= 10 units Isosorbide Mononitrate (isosorbide mononitrate 30 mg oral tablet, extended release)??30 Milligram By Mouth Daily Lactobacillus Acidophilus (lactobacillus acidophilus oral capsule)??4 capsule By Mouth 3 times a day Lidocaine Topical (lidocaine 4% patch)??2 patch Topically Daily Metoprolol (metoprolol 25 mg oral tablet)??25 Milligram 1 tablet By Mouth 2 times a day Multivitamin With Minerals (Centrum Adults)??1 tab(s) By Mouth Daily Pantoprazole (Protonix 40 mg oral delayed release tablet)??1 tab(s) 40 Milligram By Mouth Daily rivaroxaban (Xarelto 2.5 mg oral tablet)??1 tab(s) 2.5 Milligram By Mouth 2 times a day Ropinirole (rOPINIRole 0.25 mg oral tablet)??1 tab(s) 0.25 Milligram By Mouth 2 times a day Ticagrelor (ticagrelor 90 mg oral tablet)??1 tab(s) 90 Milligram By Mouth 2 times a day for 30 Daysrefills by cardiology Trazodone (traZODone 50 mg oral tablet)??50 Milligram 1 tablet By Mouth Daily at bedtime ? Quality Measures Stroke Quality Measures:? Discharge Medications Unchanged Acetaminophen (Tylenol 325 mg oral tablet)3 tab(s) Oral every 6 hours. Albuterol (Albuterol (Eqv-ProAir HFA) 90 mcg/inh inhalation aerosol)2 inhalation Inhalation every 6hours as needed Wheezing/Shortness of Breath. Atorvastatin (atorvastatin 80 mg oral tablet)1 tab(s) Oral Daily for 30 Days. Refills: 0. BuPROpion (Wellbutrin SR 150 mg/12 hours oral tablet, extended release)1 tab(s) Oral Daily. BusPIRone (busPIRone 15 mg oral tablet)1 tab(s) Oral twice a day. Durable Medical Equipment (Four-wheeled walker with a seat)Dx:. Refills: 0. 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 Refills: 0. Durable Medical Equipment (right AKA temporary prosthesis)right AKA temporary prosthesis. Refills: 0. Folic Acid (folic acid 1 mg oral tablet)1 tab(s) Oral Daily. Furosemide (Lasix 40 mg oral tablet)1 tab(s) Oral Daily. Refills: 0. GlipiZIDE (glipiZIDE 5 mg oral tablet)1 tab(s) Oral twice a day. HydrOXYzine (hydrOXYzine hydrochloride 10 mg oral tablet)1 tab(s) Oral twice a day as needed as needed for anxiety. Insulin Glargine (Lantus Solostar Pen 100 units/mL subcutaneous solution)10 unit(s) Subcutaneous Injection Daily. Insulin Lispro (Humalog Kwik Pen 100 units/mL subcutaneous injection)2-10 units Subcutaneous Injection 3 times a day before meals. sliding scale 150-200= 2 units 201-250= 4 units 251-300= 6 units 301-350= 8 units 351-400= 10 units. Isosorbide Mononitrate (isosorbide mononitrate 30 mg oral tablet, extended release)30 Milligram Oral Daily. Refills: 0. Lactobacillus Acidophilus (lactobacillus acidophilus oral capsule)4 capsule Oral 3 times a day. Lidocaine Topical (lidocaine 4% patch)2 patch Topically Daily. Metoprolol (metoprolol 25 mg oral tablet)1 tab(s) Oral twice a day. Multivitamin With Minerals (Centrum Adults)1 tab(s) Oral Daily. Pantoprazole (Protonix 40 mg oral delayed release tablet)1 tab(s) Oral Daily. rivaroxaban (Xarelto 2.5 mg oral tablet)1 tab(s) Oral twice a day. Ropinirole (rOPINIRole 0.25 mg oral tablet)1 tab(s) Oral twice a day. Ticagrelor (ticagrelor 90 mg oral tablet)1 tab(s) Oral twice a day for 30 Days. refills by cardiology. Refills: 2. Trazodone (traZODone 50 mg oral tablet)1 tab(s) Oral Daily at Bedtime. Allergies Allergies ?(Active and Proposed Allergies Only) NKA? (Severity: Unknown severity, Onset: Unknown) ? Hospital Course ??See below. Objective Assessment and Plan Assessment:??60-year-old female with history of CAD s/p NSTEMI, stent with stent restenosis now on ASA and ticagrelor, prior??CVA (multifocal CVA with hemorrhagic conversion in June), afib??on rivaroxaban, ischemic cardiomyopathy, PAD, diabetes mellitus type 2, asthma, and right AKA who present ed to the ED with increasing fatigue, somnolence and was found to be hypoglycemic. ?? 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 Insulin doses recently increased (was on Lantus 10 in May), she took 30 units of Lantus last night with 20 units of Humalog and her glipizide. Presented with symptomatic hypoglycemia, s/p D50, D5LR. Reduced Lantus back to 10 units, continue SSI PRN, hold glipizide. She is following??up tomorrow for??insulin pump placement and has a CGM to keep an eye on her glucose. ?? Fall (W19.XXXA):? Recent fall with bilateral hand numbness.?? CT c-spine without acute changes. PT eval, cleared for d/c home. ?? CVA (cerebrovascular accident) (I63.9) Atrial fibrillation (I48.91) CAD - Coronary artery disease (I25.10):? Continue ASA, ticagrelor, metoprolol, atorvastatin, Imdur, Lasix ? Vital Signs?? Temperature: 98.6 DegF (09/24/25 12:03:00) Temperature Route: Oral (09/24/25 12:03:00) Pulse Rate: 59 bpm (09/24/25 12:03:00) Respiratory Rate: 18 br/min (09/24/25 12:03:00) Systolic Blood Pressure:??143 mm Hg??High (09/24/25 12:03:00) Diastolic Blood Pressure: 62 mm Hg (09/24/25 12:03:00) Blood pressure sites: Arm, right (09/24/25 10:54:00) Mean Arterial Pressure: 89 mm Hg (09/24/25 12:03:00) Pulse Pressure: 81 mm Hg (09/24/25 12:03:00) Oxygen Saturation: 100 % (09/24/25 12:03:00) Mode of Delivery (Oxygen): Room air (09/24/25 10:54:00) Early Warning Score: 0 (09/24/25 11:07:03) ? . Physical Exam Temperature?98.8 ?(05:18) Systolic Blood Pressure?133 ?(05:18) Diastolic Blood Pressure?59 ?(05:18) Pulse?57 ?(05:18) SpO2?99 ?(05:18) Respiratory Rate?20 ?(05:18) ?? Constitutional: Alert, in no distress. Mental Status: Oriented to person, place and time. Respiratory: Clear to auscultation. No wheezing, rales or rhonchi. Cardiovascular: Regular rate and rhythm, no murmurs, rubs or gallops. Abdomen: Soft, non-tender, non-distended.??Normal bowel sounds. Skin: No rashes or lesions. Psychiatric: Normal mood and affect. Extremities: No edema. Pending Results Add On Lab Order ordered on 09/22/2025 TSH with T4 Reflex (Adults Only) ordered on 09/22/2025 Follow-Up Appointments Added Follow Up ?Time Frame ?Comments Bruce ANDREW , Anel Dunne Home Health Face to Face ^[facility] Results Discharge Labs BLOOD COUNT & DIFF WBC 13.2 k/mm3 (High)?? 09/22/2025 19:00 RBC 4.44 m/mm3 ()?? 09/22/2025 19:00 Hgb 12.3 Gm/dL ()?? 09/22/2025 19:00 Hct 38.6 % ()?? 09/22/2025 19:00 MCV 86.9 femtoliters ()?? 09/22/2025 19:00 MCH 27.7 pg ()?? 09/22/2025 19:00 MCHC 31.9 Gm/dL (Low)?? 09/22/2025 19:00 Platelet Count 372 k/mm3 ()?? 09/22/2025 19:00 RDW-SD 51.0 femtoliters (High)?? 09/22/2025 19:00 MPV 10.4 femtoliters ()?? 09/22/2025 19:00 Nucleated RBC (Automated) 0.0 #/100 WBC'S ()?? 09/22/2025 19:00 Abs. NRBC 0.0 k/mm3 ()?? 09/22/2025 19:00 Abs. Neut 10.2 k/mm3 (High)?? 09/22/2025 19:00 Abs. Lymph 2.1 k/mm3 ()?? 09/22/2025 19:00 Abs. Riley 0.7 k/mm3 ()?? 09/22/2025 19:00 Abs. Eo 0.1 k/mm3 ()?? 09/22/2025 19:00 Abs. Baso 0.0 k/mm3 ()?? 09/22/2025 19:00 Neut % 76.9 % (High)?? 09/22/2025 19:00 Lymph % 15.8 % ()?? 09/22/2025 19:00 Riley % 5.5 % ()?? 09/22/2025 19:00 Eos % 1.0 % ()?? 09/22/2025 19:00 Baso % 0.3 % ()?? 09/22/2025 19:00 Imm Gran 0.5 % ()?? 09/22/2025 19:00 Abs. Imm Gran 0.1 k/mm3 ()?? 09/22/2025 19:00 ?? CARDIAC High Sensitivity Troponin (HSTnT) 35 ng/L (High)?? 09/22/2025 22:00 ? CHEM GENERAL Sodium 140 mmol/L ()?? 09/22/2025 19:00 Potassium 3.5 mmol/L (Low)?? 09/22/2025 19:00 Chloride 102 mmol/L ()?? 09/22/2025 19:00 Bicarbonate Level 25 mmol/L ()?? 09/22/2025 19:00 Anion Gap 13 mmol/L ()?? 09/22/2025 19:00 Glucose Level 159 mg/dL (High)?? 09/22/2025 19:00 Glucose, POC 102 mg/dL (High)?? 09/24/2025 08:38 BUN 23 mg/dL ()?? 09/22/2025 19:00 Creatinine-Blood 1.31 mg/dL (High)?? 09/22/2025 19:00 Estimated GFR Creatinine 47 ML/MIN/1.73 M2 ()?? 09/22/2025 19:00 Calcium 9.1 mg/dL ()?? 09/22/2025 19:00 ? ENDOCRINE/TUMOR MARKER TSH 0.79 uIU/mL ()?? 09/22/2025 19:42 ? UA/URINALYSIS Appear/Color, Urine LIGHT YELLOW ()?? 09/23/2025 00:30 Specific [place], Urine 1.019 ()?? 09/23/2025 00:30 pH, Urine 6.5 ()?? 09/23/2025 00:30 Albumin, Urine 1+ (Abnormal)?? 09/23/2025 00:30 Glucose, Urine 2+ (Abnormal)?? 09/23/2025 00:30 Ketones, Urine NEGATIVE ()?? 09/23/2025 00:30 Bilirubin, Urine NEGATIVE ()?? 09/23/2025 00:30 Hemoglobin, Urine NEGATIVE ()?? 09/23/2025 00:30 Nitrite, Urine NEGATIVE ()?? 09/23/2025 00:30 Leukocyte, Urine NEGATIVE ()?? 09/23/2025 00:30 Urobilinogen NORMAL mg/dL ()?? 09/23/2025 00:30 WBC's, Urine 1 /HPF ()?? 09/23/2025 00:30 RBC's, Urine <1 /HPF () 09/23/2025 00:30 Squamous Epith 4 /HPF ()?? 09/23/2025 00:30 Hyaline Cast 3 LPF (High)?? 09/23/2025 00:30 Hold Urine Culture Testing available 48 hours from time of collection. ()?? 09/23/2025 00:30 ?? VIROLOGY Influenza A PCR NEGATIVE ()?? 09/22/2025 21:06 Influenza B PCR NEGATIVE ()?? 09/22/2025 21:06 RSV PCR NEGATIVE ()?? 09/22/2025 21:06 COVID-19 PCR Specimen Source NASAL ()?? 09/22/2025 21:06 COVID-19 PCR Result NEGATIVE ()?? 09/22/2025 21:06 ? I spent a total of??37 minutes today reviewing the chart/medical records, speaking with the patient, formulating and discussing the treatment plan and documenting the findings and encounter. Discussed plan with patient, nursing,??and case management. ?? Jun Singer, II [facility] Medicine Pager #[phone] or [employer] Electronically Signed on 09/24/25 12:10 PM Enmanuel MERRILL, Jun Kelly RN, Fabiana: PERFORM Event Display: Patient Education/Instruction Authored Date: [id number] Inpatient Adult Discharge 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. [address] [address] Name: JOHANNA ANAND : 1965?? Visit: 09/22/2025 22:14?? Current Date: 09/24/2025 12:11 ?? Account: [id number]?? Inpatient Adult Discharge 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 We would like to thank you for allowing us to assist you with your healthcare needs. The following includes patient education materials and information regarding your injury/illness. Our entire staffstrives to provide an excellent experience for our patients and their families. PLEASE ENSURE YOU FOLLOW-UP PER THE INSTRUCTIONS BELOW! ?? YOUR OPINION IS IMPORTANT TO US! Please complete the survey you may receive by mail or email. Your feedback will be used to make improvements to the healthcare experiences of our patients and their families. Surveys are administered by [employer] ?? If further treatment with your primary care physician or another doctor is recommended, it is important for you to keep the appointment. Call your primary care physician or return to the Emergency Department immediately if your condition worsens, fails to improve, or new symptoms develop. If you need to find a doctor, you can call [facility] for a referral at [phone] or toll free at [phone] or log in to [email or web address].. ?? [facility], in keeping with [facility] guidance, no longer requires face masks for staff, patientsor visitors in most situations. Similiar to time spent indoors at other locations, there is the chance that you were exposed to repiratory viruses during your time with us (such as flu or COVID-19). If you develop symptoms concerning for a viral respiratory infection, please seek testing (and treatment if indicated) from your medical provider or home test kit. ?? You can view and manage your care through the patient portal or by using a health care jose angel of your choosing. [employer] is a website that allows you to securely view your medical information including your hospital discharge summary, office visit summaries, medications and follow-up visits. You can also request appointments, renew medications, and request access to your medical information using a health care jose angel of your choosing, or just ask a question. You are entitled to know the individuals who participated in your treatment. This information is available within your medical record and will be provided upon your request. You can enroll at [email or web address] or register d uring your next office visit. You have been discharged from [facility], Patient Care Unit: S15??. If you have any questions regarding these instructions, including results of studies pending, afteryou leave, please call us and we will be happy to assist you 03/05. [facility] Your Care Team Attending Physician Matheus ANDREW, Corey Watt?? Consulting Providers Corey Jarvis MD?? Discharging Providers Enmanuel MERRILL, Jun Lopez Reason for Your Visit from home- kids noticed she was feeling fatigued and nodding off, c/o n/v. blood glucose monitor trending down, lowest 45. tried to feed her with no + effect.?? 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 You may have had other tests and procedures not included in this list. Please discuss all test results with your provider. Basic Metabolic Panel CBC w/ Differential COVID-19, RSV, and Flu A/B, Rapid PCR GLUCOSE POC High??Sensitivity??Troponin T TSH with T4 Reflex (Adults Only)?-- Results Pending -- Urinalysis w/hold for Urine Culture CT Cervical Spine W/O Contrast CT Head/Brain W/O Contrast Add On Lab Order?? Basic Metabolic Panel?? CBC w/ Differential?? COVID-19, RSV, and Flu A/B, Rapid PCR?? CT Cervical Spine W/O Contrast?? CT Head/Brain W/O Contrast?? Glucose POC?? High??Sensitivity??Troponin T?? TSH with T4 Reflex (Adults Only) (TSH WITH REFLEX TO FT4)?? Urinalysis w/hold for Urine Culture?? Primary Care Provider Anel Barrera MD? Advance Directive Health Care Proxy on File Yes - Health Care Proxy Yes - MOLST Discharge Vitals Temperature: 98.6 DegF Height: 158 cm Pulse Rate: 59 bpm ?? Respiratory Rate: 18 br/min ?? Systolic Blood Pressure:??143 mm Hg??High ?? Diastolic Blood Pressure: 62 mm Hg ?? Oxygen Saturation: 100 % ?? Studies Pending All studies ordered during this hospital stay have been completed unless listed below. Please discuss all pending results with your provider listed above in these instructions. ?? Add On Lab Order?? TSH with T4 Reflex (Adults Only)?? What to do next 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 From Your Doctor Reduce lantus??to 10 units tonight. Follow up tomorrow for insulin pump setup. Return to the ED if any further issues arise. ?? Orders? 09/24/25 12:10:00 EST?? Prescriptions??, ??09/24/25 12:10:00 EST?? You Need to Schedule the Following Appointments Follow Up with??Anel Barrera MD ?? Where:[address] [place] [address]- Discharge Medications JOHANNA ANAND :1965 Visit Date:09/22/2025 Medications: Please continue your medications until treatment is completed or stopped by your provider. Medications not listed below should be discontinued. Discuss any questions related to medications with your provider. What How Much When Why 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 Next Dose Unchanged Acetaminophen (Tylenol 325 mg oral tablet) 3 tab(s) Oral Every 6 hours Ordering Physician: Adiel Galloway as needed Unchanged Albuterol (Albuterol (Eqv-ProAir HFA) 90 mcg/ inh inhalation aerosol) 2 inhalation Inhalation Every 6 hours as needed for Wheezing/Shortness of Breath as needed Unchanged Atorvastatin (atorvastatin 80 mg oral tablet) 1 tab(s) Oral Daily Duration: 30 Days Ordering Physician: Carrol Encinas DO 12/16 Am Unchanged BuPROpion (Wellbutrin SR 150 mg/ 12 hours oral tablet, extended release) 1 tab(s) Oral Daily 12/16 AM Unchanged BusPIRone (busPIRone 15 mg oral tablet) 1 tab(s) Oral Twice a day 09/24 PM Unchanged Durable Medical Equipment (Four-wheeled walker with a seat) See instructions Right below-knee amputee Status post angiography of extremity Special 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: Dx: Ordering Physician: Marline Richter NP ?? 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 Unchanged Durable Medical Equipment (right AKA temporary prosthesis) See instructions Above knee amputation of right lower extremity Special 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: right AKA temporary prosthesis Ordering Physician: Marline Richter NP ?? Unchanged Folic Acid (folic acid 1 mg oral tablet) 1 tab(s) Oral Daily 09/25 AM Unchanged Furosemide (Lasix 40 mg oral tablet) 1 tab(s) Oral Daily Ordering Physician: Zora Ansari MD 09/25 AM Unchanged GlipiZIDE (glipiZIDE 5 mg oral tablet) 1 tab(s) Oral Twice a day 09/24 PM Unchanged HydrOXYzine (hydrOXYzine hydrochloride 10 mg oral tablet) 1 tab(s) Oral Twice a day as needed for as needed for anxiety as needed Unchanged Insulin Glargine (Lantus Solostar Pen 100 units/ mL subcutaneous solution) 10 unit(s) Subcutaneous Injection Daily Bedtime Unchanged Insulin Lispro (Humalog Kwik Pen 100 units/ mL subcutaneous injection) 2-10 units Subcutaneous Injection 3 times a day before meals Special 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: sliding scale 150-200= 2 units 201-250= 4 units 251-300= 6 units 301-350= 8 units 351-400= 10 units ?? with meals Unchanged Isosorbide Mononitrate (isosorbide mononitrate 30 mg oral tablet, extended release) 30 Milligram Oral Daily Ordering Physician: Dmitriy Mackay DO 09/25 AM Unchanged Lactobacillus Acidophilus (lactobacillus acidophilus oral capsule) 4 capsule Oral 3 times a day with meals Unchanged Lidocaine Topical (lidocaine 4% patch) 2 patch Topically Daily 09/25 AM Unchanged Metoprolol (metoprolol 25 mg oral tablet) 1 tab(s) Oral Twice a day 09/24 PM Unchanged Multivitamin With Minerals (Centrum Adults) 1 tab(s) Oral Daily AM Unchanged Pantoprazole (Protonix 40 mg oral delayed release tablet) 1 tab(s) Oral Daily 1216 AM Unchanged rivaroxaban (Xarelto 2.5 mg oral tablet) 1 tab(s) Oral Twice a day 09/24 PM Unchanged Ropinirole (rOPINIRole 0.25 mg oral tablet) 1 tab(s) Oral Twice a day 09/24 PM Unchanged Ticagrelor (ticagrelor 90 mg oral tablet) 1 tab(s) Oral Twice a day Duration: 30 Days Special 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: refills by cardiology Ordering Physician: Mac CONLEY, Nataliia ?? 09/24 PM Unchanged Trazodone (traZODone 50 mg oral tablet) 1 tab(s) Oral Daily at Bedtime Bedtime Prescription Given During Visit No new medications prescribed at time of discharge.?? Laboratory Results Below is a partial list of the most recent Laboratory test results done prior to this discharge. You may have had other tests and procedures not included in this list. Please discuss all test resultswith your provider. Basic Metabolic Panel (09/22/2025) ???Sodium - 140 mmol/L???Potassium - 3.5 mmol/L???Chloride - 102 mmol/L???Bicarbonate Level - 25 mmol/L???Anion Gap - 13 mmol/L???Glucose Level - 159 mg/dL???BUN - 23 mg/dL???Creatinine-Blood - 1.31 mg/dL???Estimated GFR Creatinine - 47 ML/MIN/1.73 M2???Calcium - 9.1 mg/dL CBC w/ Differential (09/22/2025) ???WBC - 13.2 k/mm3???RBC - 4.44 m/mm3???Hgb - 12.3 Gm/dL???Hct - 38.6 %???MCV - 86.9 femtoliters???MCH - 27.7 pg???MCHC - 31.9 Gm/dL???Platelet Count - 372 k/mm3???RDW-SD - 51.0 femtoliters???MPV - 10.4 femtoliters???Nucleated RBC (Automated) - 0.0 #/100 WBC'S???Abs. NRBC - 0.0 k/mm3???Abs. Neut -10.2 k/mm3???Abs. Lymph - 2.1 k/mm3???Abs. Riley - 0.7 k/mm3???Abs. Eo - 0.1 k/mm3???Abs. Baso - 0.0k/mm3???Neut % - 76.9 %???Lymph % - 15.8 %???Riley % - 5.5 %???Eos % - 1.0 %???Baso % - 0.3 %???Imm Gran - 0.5 %???Abs. Imm Gran - 0.1 k/mm3 COVID-19, RSV, and Flu A/B, Rapid PCR (09/22/2025) ???Influenza A PCR - NEGATIVE???Influenza B PCR - NEGATIVE???RSV PCR - NEGATIVE???COVID-19 PCR Specimen Source - NASAL???COVID-19 PCR Result - NEGATIVE GLUCOSE POC (09/24/2025) ???Glucose, POC - 102 mg/dL High??Sensitivity??Troponin T (09/22/2025) ???High Sensitivity Troponin (HSTnT) - 35 ng/L Urinalysis w/hold for Urine Culture (09/23/2025) ???Appear/Color, Urine - LIGHT YELLOW???Specific [place], Urine - 1.019???pH, Urine - 6.5???Albumin, Urine - 1+???Glucose, Urine - 2+???Ketones, Urine - NEGATIVE???Bilirubin, Urine - NEGATIVE???Hemoglobin, Urine - NEGATIVE???Nitrite, Urine - NEGATIVE???Leukocyte, Urine - NEGATIVE???Urobilinogen - NORMAL WBC's, Urine - 1 /HPF RBC's, Urine - <1 /HPF Squamous Epith - 4 /HPF Hyaline Cast -3 LPF???Hold Urine Culture - Testing available 48 hours from time of collection. Allergies (NKA means No Known Allergies) NKA Problems Active Problems??(21) Benign essential hypertension?? Bipolar disorder, NOS?? CAD - Coronary artery disease?? Cigarette smoker?? Coronary artery stent thrombosis?? CTS - Carpal tunnel syndrome?? CVA (cerebrovascular accident)?? GERD (gastroesophageal reflux disease)?? H/O: section?? H/O: hysterectomy?? 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 History of hernia repair?? Hypercholesterolemia?? Insulin long-term use?? Ischemic cardiomyopathy?? Left ventricular diastolic dysfunction?? Neuropathy?? NSTEMI - Non-ST segment elevation AL?? Peripheral arterial disease?? PTSD (post-traumatic stress disorder)?? Type 2 diabetes mellitus with neurological manifestations?? Education Materials Below is the list of Educational Leaflet Providered with your Discharge 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. Valuables and Belongings I fully understand and agree that [facility] accepts no responsibility for all my personal property including clothing, toilet articles, radios, jewelry, dentures, hearing aids, rings, money, or any other property that is in my possession or is brought to me after admission. I understand certain valuables may be placed in a hospital safe for a short period of time. I understand that the hospital is not liable for loss or damage due to accident, fire, or other natural occurrence while said property is in the safe. I accept full responsibility for any personal property that I keep with me, and will not hold the hospital responsible in case of loss or disappearance. I acknowledge that i have been encouraged to send valuables and belongings home. ?? Date for Pt to Sign Valuables/Belongings: 09/24/25 12:04:00 ?? Other Discharge Information ? Pulmonary Rehab Status?? Pulmonary Rehab Discharge Status?? Respiratory Rate: 18 br/min ? Common Emergency Awareness Tips IS IT A STROKE? Act FAST and Check for these signs: FACE Does the face look uneven? ARM Does one arm drift down? SPEECH Does their speech sound strange? TIME Call at any sign of stroke ?? Heart Attack Signs Chest discomfort: Most heart attacks involve discomfort in the center of the chest and lasts more than a few minutes, or goes away and comes back. It can feel like uncomfortable pressure, squeezing, fullness or pain. Discomfort in upper body: Symptoms can include pain or discomfort in one or both arms, back, neck, jaw or stomach. Shortness of breath: With or without discomfort. Other signs: Breaking out in a cold sweat, nausea, or lightheaded. Remember, MINUTES DO MATTER. If you experience any of these heart attack warning signs, call to get immediate medical attention! ?? Smoking can increase your chances of developing chronic health problems and can cause harmful effects to other family members in your house. If you smoke, you are strongly encouraged to quit. Please call [facility] Link at [phone] or [phone] ([phone]) or log in to [email or web address] for referrals to smoking cessation programs. ?? 819 Suicide & Crisis Lifeline is available 03/05 if you or someone you know needs to find a reason to keep living. By calling 846 you'll be connected to a skilled, trained counselor at a crisis center in your area. INPATIENT DISCHARGE INSTRUCTIONS SIGNATURE PAGE CHENG JOHANNA WARE Location:[facility] Registration Date and Time:09/22/2025 22:14 EST Primary Care Physician: Bruce ANDREW , Anel Dunne, Attending Physician: Matheus ANDREW, Corey Watt, I JOHANNA ANAND, have received the above patient education materials/instructions and have verbalized understanding. If ambulance or transport services are being used I further acknowledge being given a choice of service. ?? If you need to contact me, please call me at this number: . Patient/Auto Rental Clerk Name: Patient/Auto Rental Clerk Signature: Relationship to Patient: Witness Name/Signature: Date: * Fabiana Kelly RN: PERFORM Event Display: Patient Education Leaflets Authored Date: [id number] Low Blood Sugar (Hypoglycemia) ?? [address] Low Blood Sugar (Hypoglycemia) Low blood sugar (hypoglycemia) means you don???t have enough sugar (glucose) in your bloodstream tohelp your body work. This may be a level of sugar lower than 70 mg/dL. But talk with your healthcare provider about your own target range. Ask what level is too low for you. Diabetes doesn???t cause low blood sugar. But some treatments for diabetes may raise the risk for it. These include oral medicines or insulin. Skipping or delaying meals can also increase your risk for hypoglycemia. In severe cases, low blood sugar may make you pass out or have a seizure. This is amedical emergency. So always treat low blood sugar right away as noted below. This is to prevent more serious problems. Safety note Always carry a source of fast-acting sugar and a snack in case you have low blood sugar. Examples include: ??? 4 glucose tablets ??? 1 tube of glucose gel ??? 1 packet of sugar or honey ??? 2 tablespoons ofraisins ?? Symptoms of low blood sugar If you have low blood sugar, you may have 1 or more of these symptoms: ??? Shakiness ??? Dizziness ??? Cold, clammy skin or sweating ??? Hunger ??? Headache ??? Nervous feeling ??? A hard, fast heartbeat ??? Weakness ??? Confusion or irritability ??? Trouble seeing or talking ??? Having nightmares or waking up confused or sweating ??? Numbness or tingling in the lips or tongue ?? What to do If you think you have low blood sugar:?? 1. Check your sugar. First, check your blood sugar. If it's too low (out of your target range), eator drink 15 to 20 grams of fast-acting sugar. This may be 3 to 4 glucose tablets, or 4 ounces (halfa cup) of fruit juice or regular (not diet) soda, or 1 tablespoon of honey. Don???t take more than this. If you do, your blood sugar may go too high. 2. Don???t have protein. Don't eat or drink things high in protein to treat low blood sugar. This includes milk, nuts, and meat. Protein may increaseyour insulin response. It may lower your blood sugar even more. 3. Check again. Wait 15 minutes. Then recheck your blood sugar if you can. If your blood sugar is still too low, repeat the steps aboveuntil your blood sugar is back to normal. 4. Eat a snack. When your blood sugar is back at target range, eat a snack or meal. 5. Get help if needed. If you still don???t feel well and your blood sugar is still low, have someone drive you to the emergency room. ?? Preventing low blood sugar Things you can do include the below:? If your diabetes needs a strict treatment plan,??eat meals and snacks at the same times each day. Don???t skip meals. If you have trouble paying for food, talk with your healthcare team for help.??? If your treatment plan lets you change when and what you eat, learn how to change the time and dose of your rapid-acting insulin to match.? Ask your healthcare provider if it's safe to drinkalcohol. But never drink on an empty stomach. Alcohol may keep you from feeling the first symptoms of low blood sugar. ??? Take your medicine at the prescribed times. ??? Always carry a source of fast-acting sugar and a snack when you???re away from home. If you have had repeated low blood sugar episodes: ??? You may not notice the symptoms of low bloodsugar until it gets to a dangerous level. Work with your provider for the best ways to safely manage your blood sugar. ??? Ask your healthcare provider if you can take less or different medicine. Many newer types of diabetes medicines have less risk of low blood sugar. ??? Talk with your provider about a continuous glucose monitor. This is a device that tracks your blood sugar. ??? Ask your provider if you should be prescribed a medicine called glucagon. Glucagon is a hormone that quickly raises blood sugar. It can reverse serious symptoms. It is available as an injection or as a powder that's put into the nose. Ask your healthcare provider which type of glucagon is best for you and how to use it. ?? Other safety tips Make sure to: ??? Carry a medical ID card or wear a medical alert bracelet or necklace. It should say that you have diabetes. It should say what to do if you pass out or have a seizure. ??? Teach your family, friends, and coworkers the signs of low blood sugar. Tell them what to do if your blood sugar falls very low and you can???t treat yourself. ??? Keep a glucagon emergency kit handy. Show your family, friends, and coworkers how and when to use it. Check it often. Replace the glucagon beforeit expires. ??? Talk with your healthcare team about other things you can do to prevent low blood sugar. These include using new ways of continuous glucose tracking. ?Important If you have??unexplained low blood sugar or have it several times, call your healthcare provider. ?? Last Reviewed Date: 2023 00:00:00 ?? 1507-8000 [employer]. All rights reserved. This information is not intended as a substitute for professional medical care. Always follow your healthcare professional's instructions. ?? Patient Care team information Care Team Personnel Name: Jennifer Kern Position: [facility] RN Member Role: Primary Care Nurse Name: Gail Hall RN Position: [facility] RN Member Role: Primary Care Nurse Name: Christelle Valdes RN Position: [facility] RN Member Role: Primary Care Nurse Name: Denisa Ying RN Position: [facility] RN Member Role: Primary Care Nurse Name: Barbara Boyle RN Position: [facility] RN Member Role: Primary Care Nurse Name: Raymond Alberto MD Position: [facility] Renal Member Role: Lifetime Consulting Physician Address: [address] [place] [address] [address] [facility] [address] Telecom: Name: Shreya Shirley RN Position: [facility] RN Supv Member Role: Primary Care Nurse Name: Demi Guevara RN Position: [facility] Armature Winder Helper Repair Member Role: Primary Care Nurse Name: Anel Barrera MD Position: Reference Physician Member Role: PCP Address: [address] [place], [place] - Telecom: Name: Amilcar Massey RN Position: [facility] RN Member Role: Primary Care Nurse Name: Susie Willis RN Position: [facility] RN Member Role: Primary Care Nurse Name: Gus Dominguez RN Position: [facility] RN Member Role: Primary Care Nurse Name: Brittney Mcallister NP Position: [facility] Associate Professional Member Role: Lifetime Consulting Provider Address: [address] [place], [place] [address] [place] [place] [address]- Telecom: Name: iVck Gordillo MD Position: [facility] Renal MD Member Role: Lifetime Consulting Physician Address: [address] [place], [place] [address] [facility] [place], [place] - Telecom: Name: Estefania Landaverde RN Position: [facility] RN Member Role: Primary Care Nurse Name: Trish Hill RN Position: [facility] RN Member Role: Primary Care Nurse Name: Gabino Lobo RN Position: [facility] ED RN W/OE and Tasks Member Role: Primary Care Nurse Name: Augustus Mcgraw RN Position: [facility] RN Supv Member Role: Primary Care Nurse Name: Neyda Tafoya RN Position: [facility] RN Member Role: Primary Care Nurse Name: Juan Escalona RN Position: [facility] RN Member Role: Primary Care Nurse Name: Haven Hermosillo Position: [facility] RN Member Role: Primary Care Nurse Name: Delmy Michaels RN Position: [facility] ED RN W/OE and Tasks Member Role: Primary Care Nurse Name: Tamera Montero RN Position: [facility] RN Member Role: Primary Care Nurse Name: Barbara Recio RN Position: [facility] RN Member Role: Primary Care Nurse Name: Sandra Wisdom RN Position: [facility] RN Member Role: Primary Care Nurse Name: Brian Dorsey RN Position: [facility] RN Member Role: Primary Care Nurse Name: Sole Atkinson RN Position: [facility] RN Member Role: Primary Care Nurse Name: Jennifer Goode RN Position: [facility] RN Member Role: Primary Care Nurse Name: Celia Vizcaino RN Position: [facility] RN Member Role: Primary Care Nurse Care Team Related Persons Name: JR SUNSHINE Name: LIZA KHAN Name: FLAVIO ANAND Insurance Providers Guarantor name: J[facility]NA WARE [facility] Plan Information #: 1 Payer: [facility] Payer Identifier: NA Member Number: [id number] Group Number: [id number] Subscriber Identifier: [id number] Relationship to Subscriber: self Coverage Type: Medicare Managed Care (Includes Medicare Advantage Plans) Coverage Verification Date: NA Telecom: NA Address: NA
--- OUTSIDE RECORDS SUMMARY | 2025-09-26 08:14 | XMS_ITS | Patient Health Record ---
Author Organization [facility] Address [address] [place] [address] Care Team Providers Care Marketing Agent Name Role Phone Bruce ANDREW, Anel Irene Primary Care Provider Un available Sheela Day Unavailable [phone] Jun Goss Unavailable Unavailable Allergies No Known [...] Polyneuropathy due to type 2 diabetes mellitus (025790607) Type 2 diabetes mellitus with diabetic polyneuropathy (E11.42) Active confirmed Problem Polyneuropathy due to diabetes mellitus type I (245070436) Type 1 diabetes mellitus with diabetic polyneuropathy (E10.42) Active confirmed Problem Bilateral atherosclerosis of arteries of lower limbs (disorder) (71272259297259588 ) Atherosclerosis of artery of both lower extremities (I70.203) Active confirmed Problem Polyneuropathy due to diabetes mellitus type I (617625161) Type 1 DM with polyneuropathy (E10.42) Active confirmed Problem Critical limb ischemia of right lower extremity (I70.221) Active confirmed Plan Of Treatment No Information Insurance Providers Payer Name Payer Address Payer Phone Subscriber Number Group Number Insured Name Patient Relationship to Insured Coverage Start Date Coverage End Date [facility] SCO Claims [address] [address] [place] [address] [id number] Shama Reyes Self - patient is the [...]
--- OUTSIDE RECORDS SUMMARY | 2025-09-26 08:15 | XMS_ITS | Clinical Summary ---
Author Organization [facility] Address [address] [place] [address] Phone Care Team Providers Care Dredge Pipe Installer Name Role Phone Anel Barrera MD Primary [...] HERNIA REPAIR/ING OTHER SURGICAL HISTORY 04/2009 PROCEDURE: DE LAPS GASTRIC RESTRICTIVE PROCEDURE PLACE DEVICE; COMMENT: [facility] Dr Briscoe 224lbs starting wt HAND SURGERY PROCEDURE: HISTORICAL HAND SURGERY; COMMENT: Bilateral carpal tunnel release HERNIA REPAIR PROCEDURE: HISTORICAL HERNIA REPAIR/ING SECTION PROCEDURE: HISTORICAL ; COMMENT: x 2 BREAST REDUCTION 1980 Bilateral PROCEDURE: DE BREAST REDUCTION COLONOSCOPY 07/02/2021 PROCEDURE: HISTORICAL COLONOSCOPY; COMMENT: polyp Medical History Medical History Date Comments Bipolar 1 disorder ([facility] V24, [facility] V28) 02/25/2018 DX:Bipolar 1 disorder (HCC) Diabetes mellitus type 2 wit h neurological manifestations ([facility] V24, [facility] V28) 11/07/2014 DX:Diabetes mellitus type 2 with neurological manifestations (HCC) Diabetic peripheral neuropat hy ([facility] V24, [facility] V28) 02/25/2018 DX:Diabetic peripheral neur opathy (HCC) Type 2 diabetes mellitus wit h diabetic retinopathy ([facility] V24, [facility] V28) 10/01/2005 DX:Type 2 diabe noel mellitus with diabetic retinopathy (HCC) HTN (hypertension), benign 02/19/2009 DX:HT N (hypertension), benign Hyperlipidemia associated wi th type 2 diabetes mellitus ([facility] V24, [facility] V28) 02/25/2018 DX:Hyperlipidemia associated with type 2 diabetes mellitus (HCC) Necrobiosis lipoidica diabet icorum ([facility] V24, [facility] V28) 02/01/2009 DX:Necrobiosis lipoidica diabeticorum (HCC) Nuclear sclerosis 10/30/2014 DX:Nuclear scl erosis; COMMENT: Dr Kaur note 01-24-2009 Posttraumatic stress disorder 07/16/2006 DX :Posttraumatic stress disorder Shoulder impingement syndrome 10/30/2014 DX :Shoulder impingement syndrome; COMMENT: Tammy Singer note 02-19-2014 Tobacco abuse 03/14/2018 DX:Tobacco abuse Carpal tunnel syndrome 02/25/2018 DX:Carpal tunnel syndrome; COMMENT: S/p release 2014 Type 2 diabetes with nephrop athy ([facility] V24, [facility] V28) 03/15/2018 DX:Type 2 diabetes with nep hropathy ([facility]) Microalbuminuria 03/15/2018 DX:Microalbumin uria Overdose of opiate or relate d narcotic ([facility] V24, [facility] V28) 04/06/2018 DX:Overdose of opiate or re lated narcotic ([facility]); COMMENT: 04/06/2018 Positive urine drug screen [...] disease 09/07/2018 Cerebrovascular accident ( S/[facility] V24, [facility] V28) 05/17/2025 Family History Medical History [...] macular edema, bilateral (CMS/HCC V24, CMS/HCC V28) manager terminal (current) use of insulin (CMS/HCC V24, CMS/HCC V28) HPV Routine 01/17/2019 HEPATITIS C SCREENING Routine 09/09/2018 HIV SCREENING Routine 03/22/2006 from Last 3 Months or Most Recently Relevant to Health Maintenance Results * (ABNORMAL) Basic metabolic panel (05/23/2025 12:22 PM EDT) Sodium 135 133 - 145 mmol/L LAB CHEMISTRY METHOD 05/23/2025 1:59 PM [facility] Potassium 4.3 3.5 - 5.5 mmol/L LAB CHEMISTRY METHOD 05/23/2025 1:59 PM [facility] Chloride 107 96 - 110 mmol/L LAB CHEMISTRY METHOD 05/23/2025 1:59 PM [facility] CO2 21 21 - 32 mmol/L LAB CHEMISTRY METHOD 05/23/2025 1:59 PM [facility] Anion Gap 7 3 - 11 LAB CHEMISTRY METHOD 05/23/2025 1:59 PM [facility] Glucose 225(H) 70 - 100 mg/dL LAB CHEMISTRY METHOD 05/23/2025 1:59 PM [facility] BUN 23 5 - 25 mg/dL LAB CHEMISTRY METHOD 05/23/2025 1:59 PM [facility] Creatinine 1.35(H) 0.50 - 1.10 mg/dL LAB CHEMISTRY METHOD 05/23/2025 1:59 PM [facility] eGFR 45(L) >=60 mL/min/1. 73m2 LAB CHEMISTRY METHOD 05/23/2025 1:59 PM [facility] Comment:Calculation based on the Chronic Kidney Disease Epidemiology Collaboration (CKD-EPI) equation refit without adjustment for race. BUN/Creatinine Ratio 17.0 LAB CHEMISTRY METHOD 05/23/2025 1:59 PM [facility] Calcium 8.4(L) 8.5 - 10.5 mg/dL LAB CHEMISTRY METHOD 05/23/2025 1:59 PM [facility] Blood Venous blood specimen / Unknown Venipuncture / Unknown 05/23/2025 12:22 PM EDT 05/23/2025 12:30 PM EDT Carmen MERRILL LAB BLOOD ORDERABLES Final R esult [facility] [address] [place] [address], * (ABNORMAL) Hemoglobin A1c (09/22/2021) Pathologist [facility] Hemoglobin A1C 7.2(A) <=6.5 % Blood Venous blood specimen / Unknown Historical Provider LAB BLOOD ORDERABLES Stephie l Result * Urine Albumin Creatinine Ratio (08/05/2021) [facility] Urine Albumin Creatinine Ratio Abstracted [facility] Provider HEALTH MAINTENANCE Final Result * Lipid panel (08/05/2021) [facility] LDL/HDL Ratio 2 0 - 4 Triglycerides 115 0 - 150 mg/dL Cholesterol 154 0 - 200 mg/dL HDL 67 >=40 mg/dL LDL Cholesterol 64 0 - 100 mg/dL Blood Venous blood specimen / Unknown [facility] Provider LAB BLOOD ORDERABLES Stephie l Result * Colonoscopy (07/02/2021) Pathologist [facility] Colonoscopy No interpreta tion,abstr acted Anatomical Region Laterality Modality Other [facility] Provider HEALTH MAINTENANCE Final Result [...] lt * Cervical Cancer Screening: HPV (01/17/2019) [facility] Cervical Cancer Screening: HPV Negative Abstracted [facility] Provider HEALTH MAINTENANCE Final Result * Hepatitis C Screening (09/09/2018) [facility] Hepatitis C Screening Abstracted Historical Provider HEALTH MAINTENANCE Final Result * HIV Screening (03/22/2006) [facility] HIV Screening Abstracted Result [facility] Historical Provider HEALTH MAINTENANCE Final Result from Last 3 Months or Most Recently Relevant to Health Maintenance Insurance [employer] MED[employer] Member Subscriber Plan / Payer (Ef fective 2022-Present) Name:SHAMA ANAND Relation to Subscriber:Self Name:Shama Anand Payer ID:[id number] Group ID:[id number] Type:Not on file Address: [place] [address] [place] [id number] Advance Directives Documents on File Type Date Recorded Patient Assistant Clinical Director Expl anation Advance Directives and Living Will [...] currently active code status orders. Care Teams Dredge Pipe Installer Relationship Specialty Start Date End Date Anel Barrera MD [address] [facility] [place] [address] PCP - General Internal Medicine 05/18/25
--- NOTE | 2025-09-26 08:41 | MHC.AMDMED ---
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 Accompanied by: Daughter Allergies No Known Allergies Allergy (Verified 09/10/25 16:40) HPI Comprehensive Diabetes Asmnt Most Recent Diabetes Results: Microalb/Creat Ratio 223.9 ug/mg cr 04/21/22 Cholesterol, (<200) 115 mg/dL 09/04/25 HDL Cholesterol, (>40) 60 mg/dL 09/04/25 Triglycerides, (<150) 101 mg/dL 09/04/25 Creatinine, (0.5-1.4) 1.42 mg/dL H 09/04/25 BUN, (9-16) 17 mg/dL H 09/04/25 Sodium, (135-145) 141 mmol/L 09/04/25 Potassium, (3.3-5.1) 4.5 mmol/L 09/04/25 Chloride, (96-108) 108 mmol/L 09/04/25 Carbon Dioxide, (22-29) 27 mmol/L 09/04/25 Calcium, (8.4-10.2) 8.7 mg/dL 09/04/25 AST, (5-31) 28 U/L 06/30/25 ALT, (0-31) 16 U/L 06/30/25 Total Protein, (6.5-8.0) 6.8 g/dL 06/01/24 Albumin, (3.5-5.0) 3.7 g/dL 06/01/24 [facility] Medical History History of CVA (cerebrovascular accident) Iron deficiency anemia History of opioid abuse Depression with anxiety Peripheral vascular disease Essential hypertension Cigarette smoker motivated to quit Uncontrolled type 2 diabetes mellitus with hyperglycemia Diabetes mellitus with nephropathy Annual visit for general adult medical examination with abnormal findings section wound complications Encounter to establish care Type II diabetes mellitus Diabetes COPD (chronic obstructive pulmonary disease) Surgical History History of above-knee amputation of right lower extremity Hx of cardiac cath H/O neck surgery History of mandibular surgery H/O foot surgery H/O hernia repair H/O section H/O angioplasty History of hysterectomy History of colonoscopy History of laparoscopic adjustable gastric banding S/P bilateral breast reduction S/P carpal tunnel release Status post cataract extraction Family History Sister Breast cancer Mother Breast cancer Substance use disorder Mental health disorder Brother Substance use disorder Brother Substance use disorder Sister No problems noted. 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 Glucose user name: Patient is e-mail Password: [employer]! The following topics were reviewed today: -Pump therapy basic concepts: Basal/bolus, insulin to carb ratio, correction factor, insulin on board -Device settings: Bluetooth/mobile connection (if applicable), correct date and time, sound volume -CGM settings(if integrated system): CGM graft views and trend arrows, alerts and alarms, Start new sensor ??? High Alert: 120 mg/dL ??? Low Alert: 60 mg/dL Instructed patient to only use room temperature insulin, how to load cartridge or fill pod, with insulin. Fill tubing and cannula (if applicable) Inserting infusion set or starting pod Troubleshooting after starting new pod or inserting new insulin set: Occlusion, adhesive tape sensitivity, redness Check BG 2 hours after site change Safety information: Importance of a backup plan, for manual injections, proper prescriptions and emergency supplies ketone strips, and rules for testing for ketones Patient was able to insert insulin set today without difficulty. Patient understands the basic concepts of pump therapy, how to give insulin for meals and snacks, how to troubleshoot for hyper and hypoglycemia. Setting verified by [facility] Basal rate(s) (units/hour) : 12 AM to 12 AM 0.65 units / hr Bolus setting Insulin Carbohydrate Ratio (s) 12 AM to 12 AM 1:11 Correction Factor / Sensitivity Factor 12 AM to 12 AM 1:38 Active Insulin Time:? 3 hours Target(s): 12 AM to 12 AM 110 mg/dL Correction threshold 12 AM to 12 AM 110 mg/dL Patient will follow up with [facility] as instructed Patient will contact [facility] with questions or concerns, patient given IT number to support in any technical issues related to insulin pump Portions of this note were created using voice recognition software, please excuse any words or phrases that may have been misinterpreted. Coding Level of Care Code Est Pt Level 1 (42242) Diagnoses Diabetes mellitus due to underlying condition, uncontrolled, with hyperglycemia, with long-term current use of insulin E08.65; Z79.4
== END 2025-09-26 08:43 | disposition home or self-care (01) ==
LOC: HO.ENCR 08:08
PROVIDERS: PCP Internal Medicine; Visit Provider Registered Nurse Diabetes Educator
DX: E11.65 Type 2 diabetes mellitus with hyperglycemia (principal); Z79.4 Long term (current) use of insulin

== ENCOUNTER → 2025-09-26 08:08 | Outpatient (BNVA) | payer OTHER, SELFPAY | PROVIDERS: PCP Internal Medicine; Visit Provider Registered Nurse Diabetes Educator | DX: E11.65 Type 2 diabetes mellitus with hyperglycemia (principal); Z79.4 Long term (current) use of insulin | CPT/HCPCS: 99211 ==